=== PATIENT | male | born 1985 | race Caucasian/White ===

== ENCOUNTER 2016-10-31 17:15 | Emergency (ER) | payer OTHER ==
[~2016-10-31] VITALS: Ht 180.3 cm; Wt 79.5 kg
[~2016-10-31 17:15] MED LIST: ADDE15TA PO; ADDE30XR PO; ALBU6.7H INH; AMIT25 PO; AZEL0.05 INH; FLUV100C PO; GABA400C5 PO; LEVE750T8 PO; SERO200T PO; SERT50 PO; XANA1TAB2 PO
[2016-10-31 17:46] VITALS: BP 147/81; PULSE 97; RESP 18; TEMP 98.6; O2SAT 96
[2016-10-31] MEDS ORDERED: AMIT25TA9 PO (17:54)
[2016-10-31] MEDS ORDERED: KEPP750T PO (17:54)
[2016-10-31] MEDS ORDERED: ZOLO50TA PO (17:54)
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
[2016-10-31] MEDS ORDERED: SODIUM CHLOR 0.9% 1000 ML INJ 1,000 ML IV ONE (18:00)
[2016-10-31] MEDS ORDERED: MORPHINE SULFATE 4 MG/ML INJ IV PUSH ONE (18:15)
[2016-10-31 18:21] LABS: AUTOMATED NEUTROPHIL # 2.1 TH/MM3 (1.8-7.7); BASOPHIL % 1.1 % (0.0-2.0); EOSINOPHIL # 0.1 TH/MM3 (0-0.4); EOSINOPHIL % 1.9 % (0.0-4.0); HEMATOCRIT 33.6 % (39.0-51.0); HEMO FLAGS DIFF FINAL; LYMPH % 31.9 % (9.0-44.0); LYMPHOCYTE # 1.2 TH/MM3 (1.0-4.8); MEAN CELL VOLUME 81.9 FL (80.0-100.0); MEAN CORPUSCULAR HEMOGLOBIN 26.6 PG (27.0-34.0); MEAN CORPUSCULAR HGB CONC 32.4 % (32.0-36.0); MONO % 11.6 % (0.0-8.0); NEUT % 53.5 % (16.0-70.0); PLATELET COUNT 128 TH/MM3 (150-450); RED BLOOD COUNT 4.11 MIL/MM3 (4.50-5.90); RED CELL DISTRIBUTION WIDTH 17.7 % (11.6-17.2); WHITE BLOOD COUNT 3.9 TH/MM3 (4.0-11.0)
[2016-10-31 18:32] LABS: APTT (PATIENT) 27.3 SEC (24.3-30.1); PROTHROMBIN TIME - PATIENT 11.1 SEC (9.8-11.6)
[2016-10-31 18:51] LABS: ANION GAP 7 MEQ/L (5-15); AST (GOT) 72 U/L (15-37); BICARBONATE 26.9 MEQ/L (21.0-32.0); BLOOD UREA NITROGEN 16 MG/DL (7-18); CHLORIDE 107 MEQ/L (98-107); GLOMERULAR FILTRATION RATE 89 ML/MIN (>89); POTASSIUM 3.6 MEQ/L (3.5-5.1); SODIUM (NA) 141 MEQ/L (136-145)
[2016-10-31 18:55] LABS: ALKALINE PHOSPHATASE 85 U/L (45-117); ALT (GPT) 105 U/L (12-78); TOTAL BILIRUBIN ADULT 0.3 MG/DL (0.2-1.0)
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
[2016-10-31] MEDS ORDERED: IOHEXOL 350 MG/ML 10 ML VIAL (for RAD DIAG) IV ONE (19:19)
--- NOTE | 2016-10-31 19:19 | RADRPT ---
EXAM DATE/TIME: 10/31/2016 18:49 [facility] COMPARISON: CHEST SINGLE AP, December 22, 2015, 14:53. INDICATIONS : Chest pain, shortness of breath. MEDICAL HISTORY : Hypertension. Smoker. Asthma. SURGICAL HISTORY : Pacemaker. ENCOUNTER: Initial ACUITY: 1 day PAIN SCORE: 7/10 LOCATION: Bilateral chest FINDINGS: A single view of the chest demonstrates the lungs to be symmetrically aerated without evidence of mas s, infiltrate or effusion. The cardiomediastinal contours are unremarkable. Osseous structures are intact. A left subclavian AV sequential transvenous pacer remains in place. CONCLUSION: No acute disease. Scott Ramírez MD on October 31, 2016 at 19:17 Board Certified Radiologist. This report was verified electronically.
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
[2016-10-31 19:33] VITALS: RESP 20
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
[2016-10-31] MEDS ORDERED: ROBA750T PO (20:19)
[2016-10-31] MEDS ORDERED: IBUP-232 PO (20:19)
== END 2016-10-31 20:49 | disposition home or self-care (01) ==
LOC: NEPD 17:15
DX: S09.90XA Unspecified injury of head, initial encounter (principal); M54.2 Cervicalgia; M54.9 Dorsalgia, unspecified; V19.40XA Pedal cycle driver injured in collision with unspecified motor vehicles in traffic accident, initial encounter; Y93.55 Activity, bike riding; R07.9 Chest pain, unspecified; R10.9 Unspecified abdominal pain; M25.562 Pain in left knee; M25.561 Pain in right knee; M79.602 Pain in left arm; M79.601 Pain in right arm; J45.909 Unspecified asthma, uncomplicated; I10 Essential (primary) hypertension
CPT/HCPCS: 70450; 71010; 71260; 72125; 72128; 72131; 73060; 73564; 74177; 80053; 85025; 85610; 85730; 86850; 86900; 86901; 96361; 96374; 99284; J2270; J7030; Q9967

== ENCOUNTER 2016-11-06 09:25 | Emergency (ER) | payer OTHER ==
[~2016-11-06] VITALS: Ht 180.3 cm; Wt 75.0 kg
[~2016-11-06 09:25] MED LIST changes: +AMIT25TA9 PO; +IBUP-232 PO; +KEPP750T PO; +ROBA750T PO; +ZOLO50TA PO
[2016-11-06 09:26] VITALS: BP 146/78; PULSE 126; RESP 24; TEMP 98.6; O2SAT 100
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
[2016-11-06] MEDS ORDERED: ACETAMINOPHEN 500 MG CPLT PO ONE (10:00)
== END 2016-11-06 10:05 | disposition home or self-care (01) ==
LOC: NEPD 09:25
DX: R07.89 Other chest pain (principal); R51 Headache; Z76.5 Malingerer [conscious simulation]; J45.909 Unspecified asthma, uncomplicated; I10 Essential (primary) hypertension; V13.4XXD Pedal cycle driver injured in collision with car, pick-up truck or van in traffic accident, subsequent encounter; Z72.0 Tobacco use
CPT/HCPCS: 99283

== ENCOUNTER 2017-01-07 12:01 | Emergency (ER) | payer BC, OTHER ==
[~2017-01-07] VITALS: Ht 180.3 cm; Wt 75.0 kg
[~2017-01-07 12:01] MED LIST changes: -ADDE15TA PO; -ADDE30XR PO; -ALBU6.7H INH; -AMIT25 PO; -AZEL0.05 INH; -FLUV100C PO; -GABA400C5 PO; -IBUP-232 PO; -LEVE750T8 PO; -ROBA750T PO; -SERO200T PO; -SERT50 PO; -XANA1TAB2 PO
[2017-01-07 12:03] VITALS: BP 156/78; PULSE 104; RESP 24; TEMP 99; O2SAT 98
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
[2017-01-07] MEDS ORDERED: GABA600T PO (12:15)
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
--- NOTE | 2017-01-07 12:57 | RADRPT ---
EXAM DATE/TIME: 01/07/2017 12:25 [facility] COMPARISON: No previous studies available for comparison. INDICATIONS : Right ankle pain and swelling MEDICAL HISTORY : None. SURGICAL HISTORY : None. ENCOUNTER: Initial ACUITY: 1 day PAIN SCORE: 10/10 LOCATION: Right ankle FINDINGS: Three view exam was performed of the right ankle. The bony structures are in normal alignment. No e vidence of fracture, dislocation. Soft tissue swelling is present. The ankle mortise is intact. No r adiopaque foreign bodies are seen. Bony mineralization is normal. CONCLUSION: 1. Soft tissue swelling of the right ankle. No acute bony abnormality identified. Darian Day MD on January 07, 2017 at 12:51 Board Certified Radiologist. This report was verified electronically.
--- NOTE | 2017-01-07 12:58 | RADRPT ---
EXAM DATE/TIME: 01/07/2017 12:29 [facility] COMPARISON: No previous studies available for comparison. INDICATIONS : Right foot pain and swelling MEDICAL HISTORY : None. SURGICAL HISTORY : None. ENCOUNTER: Initial ACUITY: 1 day PAIN SCORE: 10/10 LOCATION: Right Foot FINDINGS: Three view examination of the right foot demonstrates no soft tissue swelling, dislocation, or fractu re. The tarsal bones appear intact. The interphalangeal and metatarsophalangeal joints are intact. The calcaneus is intact. Bony mineralization is normal. CONCLUSION: Normal examination for a patient of this age. Darian Day MD on January 07, 2017 at 12:55 Board Certified Radiologist. This report was verified electronically.
[2017-01-07] MEDS ORDERED: IBUP800T23 PO (13:13)
== END 2017-01-07 13:31 | disposition home or self-care (01) ==
LOC: NEPD 12:01
DX: S93.401A Sprain of unspecified ligament of right ankle, initial encounter (principal); S93.601A Unspecified sprain of right foot, initial encounter; M10.9 Gout, unspecified; I10 Essential (primary) hypertension; F90.9 Attention-deficit hyperactivity disorder, unspecified type; J45.909 Unspecified asthma, uncomplicated; M79.7 Fibromyalgia; B19.20 Unspecified viral hepatitis C without hepatic coma; W18.30XA Fall on same level, unspecified, initial encounter; Y93.51 Activity, roller skating (inline) and skateboarding
CPT/HCPCS: 73610; 73630; 99283; E0113; L1906

== ENCOUNTER 2017-07-03 11:09 | Emergency (ER) | payer SELFPAY ==
[~2017-07-03 11:09] MED LIST changes: +GABA600T PO; +IBUP1TAB7 PO
[2017-07-03 11:10] VITALS: BP 142/70; PULSE 70; RESP 15; TEMP 97.9; O2SAT 98
[2017-07-03] MEDS ORDERED: SODIUM CHLOR 0.9% 1000 ML INJ 1,000 ML IV ONE (12:02)
[2017-07-03] MEDS ORDERED: SODIUM CHLORIDE 0.9% FLUSH 10 ML FLUSH IVF PRN (12:15)
[2017-07-03] MEDS ORDERED: ACETAMINOPHEN 325 MG TAB PO ONE (12:15)
[2017-07-03] MEDS ORDERED: DIAZEPAM 5 MG TAB PO ONE (12:15)
[2017-07-03] MEDS ORDERED: GABAPENTIN 300 MG CAP PO ONE (12:15)
[2017-07-03] MEDS ORDERED: levETIRAcetam 500 MG TAB PO ONE (12:15)
[2017-07-03] MEDS ORDERED: levETIRAcetam 250 MG TAB PO ONE (12:15)
[2017-07-03 12:30] VITALS: O2SAT 98
--- NOTE | 2017-07-03 12:56 | RADRPT ---
EXAM DATE/TIME: 07/03/2017 12:33 [facility] COMPARISON: CHEST SINGLE AP, October 31, 2016, 18:49. INDICATIONS : Cough. MEDICAL HISTORY : Cardiovascular disease. Hypertension. Hepatitis C. SURGICAL HISTORY : Pacemaker. ENCOUNTER: Initial ACUITY: 1 day PAIN SCORE: 0/10 LOCATION: Bilateral chest FINDINGS: A single view of the chest demonstrates the lungs to be symmetrically aerated without evidence of mas s, infiltrate or effusion. The cardiomediastinal contours are unremarkable. Osseous structures are intact. Left subclavian dual lead pacemaker has its tips in the right atrium right ventricle. CONCLUSION: No acute cardiopulmonary disease. Kal Ferris MD on July 03, 2017 at 12:54 Board Certified Radiologist. This report was verified electronically.
[2017-07-03] MEDS ORDERED: KEPP750T PO (13:12)
[2017-07-03] MEDS ORDERED: GABA600T PO (13:12)
[2017-07-03 13:13] LABS: AUTOMATED NEUTROPHIL # 2.1 TH/MM3 (1.8-7.7); EOSINOPHIL # 0.1 TH/MM3 (0-0.4); EOSINOPHIL % 2.9 % (0.0-4.0); HEMATOCRIT 38.1 % (39.0-51.0); HEMO FLAGS DIFF FINAL; LYMPH % 35.2 % (9.0-44.0); LYMPHOCYTE # 1.5 TH/MM3 (1.0-4.8); MEAN CELL VOLUME 87.1 FL (80.0-100.0); MEAN CORPUSCULAR HEMOGLOBIN 29.7 PG (27.0-34.0); MONO % 10.7 % (0.0-8.0); NEUT % 50.2 % (16.0-70.0); PLATELET COUNT 165 TH/MM3 (150-450); RED BLOOD COUNT 4.37 MIL/MM3 (4.50-5.90); RED CELL DISTRIBUTION WIDTH 14.9 % (11.6-17.2); WHITE BLOOD COUNT 4.1 TH/MM3 (4.0-11.0)
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
[2017-07-03 13:30] LABS: ANION GAP 5 MEQ/L (5-15); AST (GOT) 65 U/L (15-37); BICARBONATE 26.9 MEQ/L (21.0-32.0); BLOOD UREA NITROGEN 16 MG/DL (7-18); CHLORIDE 108 MEQ/L (98-107); GLOMERULAR FILTRATION RATE 128 ML/MIN (>89); POTASSIUM 4.2 MEQ/L (3.5-5.1); SODIUM (NA) 140 MEQ/L (136-145)
[2017-07-03 13:33] LABS: ALKALINE PHOSPHATASE 89 U/L (45-117); ALT (GPT) 57 U/L (12-78); TOTAL BILIRUBIN ADULT 0.2 MG/DL (0.2-1.0)
[2017-07-03 13:45] LABS: ALCOHOL LESS THAN 3 MG/DL (0-5)
--- NOTE | 2017-07-03 13:51 | RADRPT ---
EXAM DATE/TIME: 07/03/2017 13:16 [facility] COMPARISON: CT BRAIN W/O CONTRAST, October 31, 2016, 19:01. INDICATIONS : Altered mental status, evaluate for mass. RADIATION DOSE: 56.35 CTDIvol (mGy) MEDICAL HISTORY : Cardiovascular disease. Hepatitis C. Asthma SURGICAL HISTORY : None. ENCOUNTER: Initial ACUITY: 1 day PAIN SCALE: 5/10 LOCATION: cranial TECHNIQUE: Multiple contiguous axial images were obtained of the head. Using automated exposure control and adj ustment of the mA and/or kV according to patient size, radiation dose was kept as low as reasonably a chievable to obtain optimal diagnostic quality images. DICOM format image data is available electro nically for review and comparison. FINDINGS: CEREBRUM: The ventricles are normal for age. No evidence of midline shift, mass lesion, hemorrhage or acute in farction. No extra-axial fluid collections are seen. POSTERIOR FOSSA: The cerebellum and brainstem are intact. The 4th ventricle is midline. The cerebellopontine angle i s unremarkable. EXTRACRANIAL: The visualized portion of the orbits is intact. SKULL: The calvaria is intact. No evidence of skull fracture. CONCLUSION: 1. No acute intracranial abnormality. No gross mass or mass effect. MRI examination may be performed if there is continued clinical concern. Jefferson Gifford MD on July 03, 2017 at 13:48 Board Certified Radiologist. This report was verified electronically.
[2017-07-03 14:07] VITALS: BP 130/60
[2017-07-03 14:15] VITALS: RESP 18
== END 2017-07-03 14:20 | disposition home or self-care (01) ==
LOC: NEPD 11:09
DX: G40.909 Epilepsy, unspecified, not intractable, without status epilepticus (principal); R51 Headache; R04.2 Hemoptysis; R20.0 Anesthesia of skin; R20.2 Paresthesia of skin; M62.81 Muscle weakness (generalized); M10.9 Gout, unspecified; M79.7 Fibromyalgia; I10 Essential (primary) hypertension
CPT/HCPCS: 70450; 71010; 80053; 80307; 85025; 96360; 99285; J7030

== ENCOUNTER 2017-07-10 12:35 | Emergency (ER) | payer SELFPAY ==
[2017-07-10 12:36] VITALS: BP 143/74; PULSE 85; RESP 16; TEMP 98.6; O2SAT 100
[2017-07-10 13:22] LABS: AUTOMATED NEUTROPHIL # 2.9 TH/MM3 (1.8-7.7); BASOPHIL % 0.5 % (0.0-2.0); EOSINOPHIL # 0.2 TH/MM3 (0-0.4); EOSINOPHIL % 3.8 % (0.0-4.0); HEMATOCRIT 37.5 % (39.0-51.0); HEMOGLOBIN 12.4 GM/DL (13.0-17.0); LYMPH % 33.9 % (9.0-44.0); LYMPHOCYTE # 1.9 TH/MM3 (1.0-4.8); MEAN CELL VOLUME 88.8 FL (80.0-100.0); MEAN CORPUSCULAR HEMOGLOBIN 29.3 PG (27.0-34.0); MEAN PLATELET VOLUME 7.6 FL (7.0-11.0); MONO % 9.9 % (0.0-8.0); MONOCYTE # 0.5 TH/MM3 (0-0.9); NEUT % 51.9 % (16.0-70.0); PLATELET COUNT 198 TH/MM3 (150-450); RED BLOOD COUNT 4.23 MIL/MM3 (4.50-5.90); RED CELL DISTRIBUTION WIDTH 15.5 % (11.6-17.2); WHITE BLOOD COUNT 5.5 TH/MM3 (4.0-11.0)
[2017-07-10 13:31] LABS: BILIRUBIN, URINE NEG (NEG); BLOOD, URINE NEG (NEG); GLUCOSE,URINE NEG (NEG); KETONE, URINE TRACE mg/dL (NEG); MUCUS URINE FEW /lpf (OCC); NITRITE,URINE NEG (NEG); PH, URINE 5.5 (5.0-8.5); URINE COLOR YELLOW (YELLW/STRAW); URINE LEUKOCYTE ESTERASE SMALL (NEG)
[2017-07-10 13:38] LABS: BICARBONATE 28.3 MEQ/L (21.0-32.0); CALCIUM 8.6 MG/DL (8.5-10.1); CREATININE 0.81 MG/DL (0.60-1.30)
[2017-07-10] MEDS ORDERED: VENL75XR PO (13:44)
[2017-07-10] MEDS ORDERED: SERO400T PO (13:44)
[2017-07-10] MEDS ORDERED: METR-1 PO (13:44)
[2017-07-10 13:49] VITALS: BP 131/68; PULSE 72; RESP 23; TEMP 97.9; O2SAT 100
[2017-07-10] MEDS ORDERED: BUSP30TA PO (13:57)
--- NOTE | 2017-07-10 14:19 | RADRPT ---
EXAM DATE/TIME: 07/10/2017 13:16 [facility] COMPARISON: CHEST PA & LAT, January 29, 2016, 17:22. INDICATIONS : Short of breath. MEDICAL HISTORY : Cardiovascular disease. Hepatitis C. Asthma SURGICAL HISTORY : Pacemaker. ENCOUNTER: Initial ACUITY: 1 day PAIN SCORE: 0/10 LOCATION: Bilateral chest FINDINGS: PA and lateral views of the chest demonstrate the lungs to be symmetrically aerated without evidence of mass, infiltrate or effusion. The cardiomediastinal contours are unremarkable. Osseous structure s are intact. Pacing device overlies left chest. CONCLUSION: No acute disease. Kings Alvares Jr., MD on July 10, 2017 at 14:16 Board Certified Radiologist. This report was verified electronically.
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
[2017-07-10] MEDS ORDERED: LORazepam 2 MG/ML VIAL IV PUSH ONE (14:45)
[2017-07-10] MEDS ORDERED: SODIUM CHLOR 0.9% 1000 ML INJ 1,000 ML IV ONE (14:45)
--- NOTE | 2017-07-10 20:58 | EKG ---
Date Performed: 07/10/2017 Time Performed: 13:27:14 PTAGE: 31 years EKG: ELECTRONIC ATRIAL PACEMAKER ABNORMAL RHYTHM ECG Compared to prior electrocardiogram, Atrial pacemaker is present PREVIOUS TRACING : 12/22/2015 14.16 DOCTOR: Kvng Baldwin Interpretating Date/Time 07/10/2017 20:56:40
== END 2017-07-10 17:59 | disposition home or self-care (01) ==
LOC: NEPC 12:35
DX: F41.9 Anxiety disorder, unspecified (principal)
CPT/HCPCS: 71020; 80048; 81001; 82550; 82552; 85025; 93005; 96361; 96374; 99285; J2060; J7030

== ENCOUNTER 2017-07-12 00:51 | Emergency (ER) | payer SELFPAY ==
[~2017-07-12] VITALS: Ht 180.3 cm; Wt 83.0 kg
[~2017-07-12 00:51] MED LIST changes: +BUSP30TA PO; -IBUP1TAB7 PO; +METR-1 PO; +SERO400T PO; +VENL75XR PO; -ZOLO50TA PO
[2017-07-12 00:57] VITALS: BP 157/93; PULSE 100; RESP 26; TEMP 98.4; O2SAT 100
[2017-07-12] MEDS ORDERED: LORazepam 2 MG/ML VIAL IV PUSH ONE ×2 (01:00→02:15)
[2017-07-12] MEDS ORDERED: SODIUM CHLOR 0.9% 1000 ML INJ 1,000 ML IV ONE ×3 (01:00→03:15)
[2017-07-12] MEDS ORDERED: TYLE325T PO (01:05)
[2017-07-12] MEDS ORDERED: GLUC500T4 PO (01:05)
[2017-07-12] MEDS ORDERED: IBUP-232 PO (01:05)
[2017-07-12 01:20] LABS: AUTOMATED NEUTROPHIL # 4.4 TH/MM3 (1.8-7.7); BASOPHIL % 0.3 % (0.0-2.0); EOSINOPHIL # 0.1 TH/MM3 (0-0.4); EOSINOPHIL % 1.1 % (0.0-4.0); HEMATOCRIT 38.4 % (39.0-51.0); HEMOGLOBIN 13.1 GM/DL (13.0-17.0); LYMPH % 29.4 % (9.0-44.0); LYMPHOCYTE # 2.1 TH/MM3 (1.0-4.8); MEAN CELL VOLUME 86.9 FL (80.0-100.0); MEAN CORPUSCULAR HEMOGLOBIN 29.7 PG (27.0-34.0); MEAN CORPUSCULAR HGB CONC 34.1 % (32.0-36.0); MEAN PLATELET VOLUME 7.7 FL (7.0-11.0); MONO % 7.7 % (0.0-8.0); MONOCYTE # 0.6 TH/MM3 (0-0.9); NEUT % 61.5 % (16.0-70.0); PLATELET COUNT 289 TH/MM3 (150-450); RED BLOOD COUNT 4.42 MIL/MM3 (4.50-5.90); RED CELL DISTRIBUTION WIDTH 15.8 % (11.6-17.2); WHITE BLOOD COUNT 7.2 TH/MM3 (4.0-11.0)
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
[2017-07-12 01:56] LABS: ALBUMIN 4.1 GM/DL (3.4-5.0); ALT (GPT) 48 U/L (12-78); AST (GOT) 47 U/L (15-37); BICARBONATE 25.8 MEQ/L (21.0-32.0); BLOOD UREA NITROGEN 17 MG/DL (7-18); CALCIUM 9.5 MG/DL (8.5-10.1); CHLORIDE 106 MEQ/L (98-107); CREATININE 0.94 MG/DL (0.60-1.30); GLOMERULAR FILTRATION RATE 94 ML/MIN (>89); GLUCOSE,RANDOM 75 MG/DL (74-106); SODIUM (NA) 139 MEQ/L (136-145)
[2017-07-12 02:05] VITALS: BP 135/74; PULSE 77; RESP 16; O2SAT 100
[2017-07-12 02:06] LABS: ACETAMINOPHEN LESS THAN 2.0 MCG/ML (10.0-30.0); ALKALINE PHOSPHATASE 77 U/L (45-117); TOTAL BILIRUBIN ADULT 0.4 MG/DL (0.2-1.0)
[2017-07-12 04:07] LABS: BILIRUBIN, URINE NEG (NEG); BLOOD, URINE NEG (NEG); GLUCOSE,URINE NEG (NEG); HYALINE CAST, URINE 6 /lpf (RARE); KETONE, URINE TRACE mg/dL (NEG); MUCUS URINE FEW /lpf (OCC); NITRITE,URINE NEG (NEG); SPERM, URINE FEW; URINE COLOR YELLOW (YELLW/STRAW); URINE LEUKOCYTE ESTERASE NEG (NEG)
[2017-07-12 06:04] VITALS: BP 159/92; PULSE 82; RESP 17; TEMP 98.9; O2SAT 100
[2017-07-12] MEDS ORDERED: IBUPROFEN 800 MG TAB PO ONE (09:45)
[2017-07-12 10:32] VITALS: BP 138/63; PULSE 79; RESP 18; O2SAT 99
[2017-07-12] MEDS ORDERED: levETIRAcetam 500 MG TAB PO ONE (13:15)
[2017-07-12] MEDS ORDERED: GABAPENTIN 300 MG CAP PO ONE (13:15)
--- NOTE | 2017-07-12 13:56 | EKG ---
Date Performed: 07/12/2017 Time Performed: 01:19:18 PTAGE: 31 years EKG: Sinus rhythm NORMAL ECG Compared to PREVIOUS TRACING atrial pacing is no longer noted and sinus rhythm is now present PREVIO US TRACIN07/10/2017 13.27 DOCTOR: Michael Eugene Interpretating Date/Time 07/12/2017 13:54:40
[2017-07-12 14:05] VITALS: BP 143/68; PULSE 89; RESP 20
[2017-07-12] MEDS ORDERED: TRAZ100T10 PO (15:59)
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
--- NOTE | 2017-07-12 17:05 | PD ---
Physical Exam Date Seen by Provider: Jul 12, 2017 Time Seen by Provider: 17:03 Narrative 31-year-old male previously medically cleared for psychiatric evaluation after stating suicidal ideation. Patient was seen by Dr. Beck, the psychiatrist and psychiatrically cleared for discharge. Patient remains medically stable for discharge at this time. Follow-up plan as per Dr. Beck's note. Data Data Last Documented VS Vital Signs Date Time Temp Pulse Resp B/P (MAP) Pulse Ox O2 Delivery O2 Flow Rate FiO2 07/12/17 14:05 89 20 143/68 (93) Room Air 07/12/17 10:32 99 07/12/17 06:04 98.9 Orders Orders Complete Blood Count With Diff (07/12/17 00:57) Comprehensive Metabolic Panel (07/12/17 00:57) Thyroid Stimulating Hormone (07/12/17 00:57) Urinalysis - C+S If Indicated (07/12/17 00:57) Electrocardiogram (07/12/17 00:57) Oximetry (07/12/17 00:57) Iv Access Insert/Monitor (07/12/17 00:57) Ecg Monitoring (07/12/17 00:57) Psych Screen (07/12/17 00:57) Drug Screen, Random Urine (07/12/17 00:57) Alcohol (Ethanol) (07/12/17 00:57) Salicylates (Aspirin) (07/12/17 00:57) Tylenol (Acetaminophen) (07/12/17 00:57) Sodium Chlor 0.9% 1000 Ml Inj (Ns 1000 M (07/12/17 01:00) Lorazepam Inj (Ativan Inj) (07/12/17 01:00) Sodium Chlor 0.9% 1000 Ml Inj (Ns 1000 M (07/12/17 02:15) Lorazepam Inj (Ativan Inj) (07/12/17 02:15) Sodium Chlor 0.9% 1000 Ml Inj (Ns 1000 M (07/12/17 03:15) Diet Regular Basic (07/12/17 Breakfast) Diet Regular Basic (07/12/17 Lunch) Ibuprofen (Motrin) (07/12/17 09:45) Levetiracetam (Keppra) (07/12/17 13:15) Gabapentin (Neurontin) (07/12/17 13:15) Diet Regular Basic (07/12/17 Dinner) Labs Laboratory Tests Test 07/12/17 01:10 07/12/17 03:50 White Blood Count 7.2 TH/MM3 Red Blood Count 4.42 MIL/MM3 Hemoglobin 13.1 GM/DL Hematocrit 38.4 % Mean Corpuscular Volume 86.9 FL Mean Corpuscular Hemoglobin 29.7 PG Mean Corpuscular Hemoglobin Concent 34.1 % Red Cell Distribution Width 15.8 % Platelet Count 289 TH/MM3 Mean Platelet Volume 7.7 FL Neutrophils (%) (Auto) 61.5 % Lymphocytes (%) (Auto) 29.4 % Monocytes (%) (Auto) 7.7 % Eosinophils (%) (Auto) 1.1 % Basophils (%) (Auto) 0.3 % Neutrophils # (Auto) 4.4 TH/MM3 Lymphocytes # (Auto) 2.1 TH/MM3 Monocytes # (Auto) 0.6 TH/MM3 Eosinophils # (Auto) 0.1 TH/MM3 Basophils # (Auto) 0.0 TH/MM3 CBC Comment DIFF FINAL Differential Comment Blood Urea Nitrogen 17 MG/DL Creatinine 0.94 MG/DL Random Glucose 75 MG/DL Total Protein 8.0 GM/DL Albumin 4.1 GM/DL Calcium Level 9.5 MG/DL Alkaline Phosphatase 77 U/L Aspartate Amino Transf (AST/SGOT) 47 U/L Alanine Aminotransferase (ALT/SGPT) 48 U/L Total Bilirubin 0.4 MG/DL Sodium Level 139 MEQ/L Potassium Level 4.3 MEQ/L Chloride Level 106 MEQ/L Carbon Dioxide Level 25.8 MEQ/L Anion Gap 7 MEQ/L Estimat Glomerular Filtration Rate 94 ML/MIN Thyroid Stimulating Hormone 3rd Gen 2.870 uIU/ML Salicylates Level LESS THAN 1.7 MG/DL Acetaminophen Level LESS THAN 2.0 MCG/ML Ethyl Alcohol Level LESS THAN 3 MG/DL Urine Color YELLOW Urine Turbidity CLEAR Urine pH 7.0 Urine Specific [place] 1.026 Urine Protein 30 mg/dL Urine Glucose (UA) NEG mg/dL Urine Ketones TRACE mg/dL Urine Occult Blood NEG Urine Nitrite NEG Urine Bilirubin NEG Urine Urobilinogen LESS THAN 2.0 MG/DL Urine Leukocyte Esterase NEG Urine RBC 2 /hpf Urine WBC 4 /hpf Urine Hyaline Casts 6 /lpf Urine Granular Casts 3 /lpf Urine Mucus FEW /lpf Urine Sperm FEW Microscopic Urinalysis Comment CULT NOT INDICATED Urine Opiates Screen NEG Urine Barbiturates Screen NEG Urine Amphetamines Screen POS Urine Benzodiazepines Screen NEG Urine Cocaine Screen NEG Urine Cannabinoids Screen NEG MDM Medical Record Reviewed: Yes Supervised Visit with [facility]: Yes Narrative Course 31-year-old male previously medically cleared for psychiatric evaluation after stating suicidal ideation. Patient was seen by Dr. Beck, the psychiatrist and psychiatrically cleared for discharge. Patient remains medically stable for discharge at this time. Follow-up plan as per Dr. Beck's note. Diagnosis Primary Impression: Adjustment disorder with mixed disturbance of emotions and conduct Patient Instructions: General Instructions, Mood Disorders (ED) Departure Forms: Tests/Procedures Scripts Trazodone (Trazodone) 100 Mg Tablet 100 MG PO HS for Control Depression, #30 TAB 0 Refills Prov: Fahad Beck MD 07/12/17 Disposition: 01 DISCHARGE HOME Condition: Stable Jorge Luis Moreira Jul 12, 2017 17:04
== END 2017-07-12 18:30 | disposition home or self-care (01) ==
LOC: NEPC 00:51 → NEPJ 18:30
DX: F43.25 Adjustment disorder with mixed disturbance of emotions and conduct (principal); R45.851 Suicidal ideations; F90.9 Attention-deficit hyperactivity disorder, unspecified type; J45.909 Unspecified asthma, uncomplicated; F41.9 Anxiety disorder, unspecified; M79.7 Fibromyalgia; I10 Essential (primary) hypertension; M10.9 Gout, unspecified; R56.9 Unspecified convulsions
CPT/HCPCS: 80053; 80307; 81001; 84443; 85025; 93005; 96361; 96374; 96376; 99285; J2060; J7030

== ENCOUNTER 2017-08-04 18:34 | Emergency (ER) | payer OTHER ==
[~2017-08-04] VITALS: Ht 180.3 cm; Wt 80.0 kg
[~2017-08-04 18:34] MED LIST changes: -AMIT25TA9 PO; +GLUC500T4 PO; +IBUP-232 PO; +TRAZ100T10 PO; +TYLE325T PO
[2017-08-04] MEDS ORDERED: LORA-474 PO (18:54)
[2017-08-04] MEDS ORDERED: ALBU6.7H INH (18:54)
[2017-08-04] MEDS ORDERED: OXYC-395 PO (18:54)
[2017-08-04] MEDS ORDERED: METO25TA3 PO (18:54)
[2017-08-04 18:56] VITALS: BP 147/98; PULSE 87; RESP 20; O2SAT 100
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
[2017-08-04 19:56] LABS: ALBUMIN 4.3 GM/DL (3.4-5.0); AST (GOT) 64 U/L (15-37); BICARBONATE 30.3 MEQ/L (21.0-32.0); BLOOD UREA NITROGEN 24 MG/DL (7-18); CALCIUM 9.2 MG/DL (8.5-10.1); CHLORIDE 100 MEQ/L (98-107); CREATININE 1.12 MG/DL (0.60-1.30); GLOMERULAR FILTRATION RATE 77 ML/MIN (>89); GLUCOSE,RANDOM 85 MG/DL (74-106); SODIUM (NA) 134 MEQ/L (136-145)
[2017-08-04 19:57] LABS: ALT (GPT) 58 U/L (12-78)
[2017-08-04 20:07] LABS: ALKALINE PHOSPHATASE 108 U/L (45-117); TOTAL BILIRUBIN ADULT 0.3 MG/DL (0.2-1.0); TOTAL PROTEIN 8.6 GM/DL (6.4-8.2)
[2017-08-04 20:10] LABS: AUTOMATED NEUTROPHIL # 1.6 TH/MM3 (1.8-7.7); BASOPHIL # 0.1 TH/MM3 (0-0.2); BASOPHIL % 1.3 % (0.0-2.0); EOSINOPHIL # 0.2 TH/MM3 (0-0.4); EOSINOPHIL % 4.1 % (0.0-4.0); HEMATOCRIT 37.7 % (39.0-51.0); HEMOGLOBIN 12.6 GM/DL (13.0-17.0); LYMPH % 45.8 % (9.0-44.0); MEAN CELL VOLUME 86.3 FL (80.0-100.0); MEAN CORPUSCULAR HEMOGLOBIN 28.8 PG (27.0-34.0); MEAN CORPUSCULAR HGB CONC 33.4 % (32.0-36.0); MEAN PLATELET VOLUME 7.8 FL (7.0-11.0); MONO % 12.9 % (0.0-8.0); MONOCYTE # 0.6 TH/MM3 (0-0.9); NEUT % 35.9 % (16.0-70.0); PLATELET COUNT 300 TH/MM3 (150-450); RED BLOOD COUNT 4.37 MIL/MM3 (4.50-5.90); RED CELL DISTRIBUTION WIDTH 15.9 % (11.6-17.2); WHITE BLOOD COUNT 4.3 TH/MM3 (4.0-11.0)
[2017-08-04] MEDS ORDERED: LORazepam 1 MG TAB PO ONE (21:00)
[2017-08-04] MEDS ORDERED: SODIUM CHLOR 0.9% 1000 ML INJ 1,000 ML IV ONE (21:45)
[2017-08-05 06:49] VITALS: BP 131/65; PULSE 81; RESP 18; TEMP 98.5; O2SAT 100
[2017-08-05 07:15] LABS: BILIRUBIN, URINE NEG (NEG); BLOOD, URINE NEG (NEG); GLUCOSE,URINE NEG (NEG); KETONE, URINE NEG (NEG); NITRITE,URINE NEG (NEG); PH, URINE 5.5 (5.0-8.5); URINE COLOR LIGHT-YELLOW (YELLW/STRAW); URINE LEUKOCYTE ESTERASE NEG (NEG)
[2017-08-05 10:13] VITALS: BP 133/65; PULSE 70; RESP 17; O2SAT 96
[2017-08-05] MEDS ORDERED: levETIRAcetam 500 MG TAB PO ONE (14:15)
[2017-08-05 21:00] VITALS: BP 114/56; PULSE 70; RESP 16; TEMP 98.2; O2SAT 100
[2017-08-05 22:28] VITALS: BP 122/64; PULSE 72; RESP 16; TEMP 99; O2SAT 100
[2017-08-06 02:38] VITALS: BP 112/56; PULSE 78; RESP 16; TEMP 98.2; O2SAT 99
[2017-08-06 07:12] VITALS: BP 118/59; PULSE 65; RESP 17; TEMP 98.6; O2SAT 100
[2017-08-06] MEDS ORDERED: NICOTINE 14 MG/24 HR PATCH T-DERMAL ONE (09:00)
[2017-08-06] MEDS ORDERED: GABAPENTIN 300 MG CAP PO STA (09:13)
[2017-08-06] MEDS ORDERED: levETIRAcetam 250 MG TAB PO ONE (09:15)
[2017-08-06] MEDS ORDERED: busPIRone HCL 10 MG TAB PO ONE (09:15)
[2017-08-06] MEDS ORDERED: VENLAFAXINE HCL XR 75 MG CAP PO ONE (09:15)
[2017-08-06] MEDS ORDERED: METOPROLOL TARTRATE 25 MG TAB PO ONE (09:15)
[2017-08-06] MEDS ORDERED: IBUPROFEN 600 MG TAB PO ONE ×2 (10:30→20:00)
[2017-08-06 14:16] VITALS: BP 126/59; PULSE 65; RESP 18; TEMP 98.6; O2SAT 99
[2017-08-06] MEDS ORDERED: levETIRAcetam 500 MG TAB PO ONE (20:00)
[2017-08-06 22:00] VITALS: BP 111/61; PULSE 73; RESP 18; TEMP 98.5; O2SAT 96
[2017-08-07 02:05] VITALS: BP 124/63; PULSE 71; RESP 17; TEMP 99.1; O2SAT 98
[2017-08-07] MEDS ORDERED: IBUPROFEN 600 MG TAB PO ONE (06:15)
[2017-08-07 06:34] VITALS: BP 129/59; PULSE 54; RESP 17; TEMP 97.8; O2SAT 99
[2017-08-07] MEDS ORDERED: busPIRone HCL 10 MG TAB PO ONE (09:00)
[2017-08-07] MEDS ORDERED: VENLAFAXINE HCL XR 75 MG CAP PO ONE (09:00)
[2017-08-07] MEDS ORDERED: levETIRAcetam 250 MG TAB PO ONE (09:00)
[2017-08-07] MEDS ORDERED: METOPROLOL TARTRATE 25 MG TAB PO ONE (09:00)
[2017-08-07] MEDS ORDERED: GABAPENTIN 300 MG CAP PO ONE (09:00)
[2017-08-07 10:13] VITALS: BP 113/59; PULSE 78; RESP 12; TEMP 98.1; O2SAT 95
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
--- NOTE | 2017-08-07 11:17 | PD ---
Data Data Last Documented VS Vital Signs Date Time Temp Pulse Resp B/P (MAP) Pulse Ox O2 Delivery O2 Flow Rate FiO2 08/07/17 10:13 98.1 78 12 113/59 (77) 95 08/07/17 06:34 Room Air Orders Orders Complete Blood Count With Diff (08/04/17 18:50) Comprehensive Metabolic Panel (08/04/17 18:50) Thyroid Stimulating Hormone (08/04/17 18:50) Urinalysis - C+S If Indicated (08/04/17 18:50) Iv Access Insert/Monitor (08/04/17 18:50) Psych Screen (08/04/17 18:50) Drug Screen, Random Urine (08/04/17 18:50) Alcohol (Ethanol) (08/04/17 18:50) Lorazepam (Ativan) (08/04/17 21:00) Sodium Chlor 0.9% 1000 Ml Inj (Ns 1000 M (08/04/17 21:45) Diet Regular Basic (08/05/17 Lunch) Levetiracetam (Keppra) (08/05/17 14:15) Diet Regular Basic (08/06/17 Breakfast) Nicotine 14 Mg Patch.24 Hr (Habitrol 14 (08/06/17 09:00) Levetiracetam (Keppra) (08/06/17 09:15) Gabapentin (Neurontin) (08/06/17 09:13) Metoprolol Tartrate (Lopressor) (08/06/17 09:15) Venlafaxine Xr (Effexor Xr) (08/06/17 09:15) Buspirone (Buspar) (08/06/17 09:15) Ibuprofen (Motrin) (08/06/17 10:30) Diet Regular Basic (08/06/17 Lunch) Diet Regular Basic (08/06/17 Dinner) Levetiracetam (Keppra) (08/06/17 20:00) Ibuprofen (Motrin) (08/06/17 20:00) Ibuprofen (Motrin) (08/07/17 06:15) Diet Regular Basic (08/07/17 Breakfast) Buspirone (Buspar) (08/07/17 09:00) Gabapentin (Neurontin) (08/07/17 09:00) Levetiracetam (Keppra) (08/07/17 09:00) Metoprolol Tartrate (Lopressor) (08/07/17 09:00) Venlafaxine Xr (Effexor Xr) (08/07/17 09:00) Ed Discharge Order (08/07/17 11:15) Labs Laboratory Tests Test 08/04/17 19:20 08/05/17 07:05 White Blood Count 4.3 TH/MM3 Red Blood Count 4.37 MIL/MM3 Hemoglobin 12.6 GM/DL Hematocrit 37.7 % Mean Corpuscular Volume 86.3 FL Mean Corpuscular Hemoglobin 28.8 PG Mean Corpuscular Hemoglobin Concent 33.4 % Red Cell Distribution Width 15.9 % Platelet Count 300 TH/MM3 Mean Platelet Volume 7.8 FL Neutrophils (%) (Auto) 35.9 % Lymphocytes (%) (Auto) 45.8 % Monocytes (%) (Auto) 12.9 % Eosinophils (%) (Auto) 4.1 % Basophils (%) (Auto) 1.3 % Neutrophils # (Auto) 1.6 TH/MM3 Lymphocytes # (Auto) 2.0 TH/MM3 Monocytes # (Auto) 0.6 TH/MM3 Eosinophils # (Auto) 0.2 TH/MM3 Basophils # (Auto) 0.1 TH/MM3 CBC Comment DIFF FINAL Differential Comment Blood Urea Nitrogen 24 MG/DL Creatinine 1.12 MG/DL Random Glucose 85 MG/DL Total Protein 8.6 GM/DL Albumin 4.3 GM/DL Calcium Level 9.2 MG/DL Alkaline Phosphatase 108 U/L Aspartate Amino Transf (AST/SGOT) 64 U/L Alanine Aminotransferase (ALT/SGPT) 58 U/L Total Bilirubin 0.3 MG/DL Sodium Level 134 MEQ/L Potassium Level 4.3 MEQ/L Chloride Level 100 MEQ/L Carbon Dioxide Level 30.3 MEQ/L Anion Gap 4 MEQ/L Estimat Glomerular Filtration Rate 77 ML/MIN Thyroid Stimulating Hormone 3rd Gen 5.370 uIU/ML Ethyl Alcohol Level LESS THAN 3 MG/DL Urine Color LIGHT-YELLOW Urine Turbidity CLEAR Urine pH 5.5 Urine Specific [place] 1.006 Urine Protein NEG mg/dL Urine Glucose (UA) NEG mg/dL Urine Ketones NEG mg/dL Urine Occult Blood NEG Urine Nitrite NEG Urine Bilirubin NEG Urine Urobilinogen LESS THAN 2.0 MG/DL Urine Leukocyte Esterase NEG Urine WBC 2 /hpf Microscopic Urinalysis Comment CULT NOT INDICATED Urine Opiates Screen NEG Urine Barbiturates Screen NEG Urine Amphetamines Screen POS Urine Benzodiazepines Screen POS Urine Cocaine Screen NEG Urine Cannabinoids Screen NEG MDM Supervised Visit with [facility]: Yes Narrative Course 31-year-old man, medically cleared, seen by psychiatry, recommend outpatient follow-up with act. Diagnosis Primary Impression: Amphetamine abuse Additional Instruction: Follow-up with [facility] as discussed. Med/Other Pt SpecificInfo: No Change to Meds Disposition: 01 DISCHARGE HOME Condition: Stable George Parikh MD Aug 07, 2017 11:17
== END 2017-08-07 12:40 | disposition home or self-care (01) ==
LOC: NEPE 18:34 → NEPJ 08-07 12:40
DX: F33.1 Major depressive disorder, recurrent, moderate (principal); F15.10 Other stimulant abuse, uncomplicated; R23.8 Other skin changes; G89.29 Other chronic pain; I10 Essential (primary) hypertension; F41.8 Other specified anxiety disorders; J45.909 Unspecified asthma, uncomplicated; G40.909 Epilepsy, unspecified, not intractable, without status epilepticus; Z72.0 Tobacco use; Z95.0 Presence of cardiac pacemaker; Z86.59 Personal history of other mental and behavioral disorders; Z86.79 Personal history of other diseases of the circulatory system; Z87.39 Personal history of other diseases of the musculoskeletal system and connective tissue; Z86.39 Personal history of other endocrine, nutritional and metabolic disease
CPT/HCPCS: 80053; 80307; 81001; 84443; 85025; 99284; J7030

== ENCOUNTER 2017-10-29 18:00 | Emergency (ER) | payer OTHER ==
[~2017-10-29] VITALS: Ht 175.3 cm; Wt 82.0 kg
[~2017-10-29 18:00] MED LIST changes: +ALBU6.7H INH; -GLUC500T4 PO; -IBUP-232 PO; +LORA-474 PO; +METO25TA3 PO; -METR-1 PO; +OXYC-395 PO; -TRAZ100T10 PO; -TYLE325T PO
[2017-10-29 18:13] VITALS: BP 129/60; PULSE 84; RESP 18; TEMP 98.1; O2SAT 100
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
[2017-10-29 19:21] LABS: AUTOMATED NEUTROPHIL # 1.6 TH/MM3 (1.8-7.7); BASOPHIL % 0.9 % (0.0-2.0); EOSINOPHIL # 0.1 TH/MM3 (0-0.4); EOSINOPHIL % 3.8 % (0.0-4.0); HEMATOCRIT 37.6 % (39.0-51.0); HEMOGLOBIN 12.5 GM/DL (13.0-17.0); LYMPH % 40.9 % (9.0-44.0); LYMPHOCYTE # 1.5 TH/MM3 (1.0-4.8); MEAN CELL VOLUME 84.1 FL (80.0-100.0); MEAN CORPUSCULAR HEMOGLOBIN 27.9 PG (27.0-34.0); MEAN CORPUSCULAR HGB CONC 33.2 % (32.0-36.0); MEAN PLATELET VOLUME 7.8 FL (7.0-11.0); MONO % 10.1 % (0.0-8.0); MONOCYTE # 0.4 TH/MM3 (0-0.9); NEUT % 44.3 % (16.0-70.0); PLATELET COUNT 215 TH/MM3 (150-450); RED BLOOD COUNT 4.46 MIL/MM3 (4.50-5.90); RED CELL DISTRIBUTION WIDTH 15.5 % (11.6-17.2); WHITE BLOOD COUNT 3.6 TH/MM3 (4.0-11.0)
[2017-10-29] MEDS ORDERED: AMIT100T2 PO (21:40)
[2017-10-29] MEDS ORDERED: ZANT300T PO (21:40)
[2017-10-29] MEDS ORDERED: IRON1TAB8 PO (21:40)
[2017-10-29] MEDS ORDERED: SYNT25TA PO (21:40)
[2017-10-29] MEDS ORDERED: CHOL10008 (21:40)
[2017-10-29] MEDS ORDERED: LISI10TA3 PO (21:40)
[2017-10-30 01:04] VITALS: BP 120/58; PULSE 69; RESP 16; TEMP 97.8; O2SAT 99
[2017-10-30 06:20] VITALS: BP 130/68; PULSE 70; RESP 18; TEMP 96.7; O2SAT 100
[2017-10-30 08:26] LABS: ALBUMIN 3.7 GM/DL (3.4-5.0); AST (GOT) 40 U/L (15-37); BICARBONATE 25.6 MEQ/L (21.0-32.0); BLOOD UREA NITROGEN 16 MG/DL (7-18); CALCIUM 8.8 MG/DL (8.5-10.1); CHLORIDE 106 MEQ/L (98-107); GLOMERULAR FILTRATION RATE 87 ML/MIN (>89); GLUCOSE,RANDOM 73 MG/DL (74-106); MAGNESIUM 2.1 MG/DL (1.5-2.5); SODIUM (NA) 139 MEQ/L (136-145)
[2017-10-30 08:27] LABS: ALT (GPT) 159 U/L (12-78)
[2017-10-30 08:35] LABS: ALKALINE PHOSPHATASE 105 U/L (45-117); TOTAL BILIRUBIN ADULT 0.2 MG/DL (0.2-1.0); TOTAL PROTEIN 7.8 GM/DL (6.4-8.2)
[2017-10-30 09:00] LABS: ACETAMINOPHEN LESS THAN 2.0 MCG/ML (10.0-30.0)
--- NOTE | 2017-10-30 10:35 | PD ---
Physical Exam Date Seen by Provider: Oct 30, 2017 Time Seen by Provider: 10:31 Narrative 32-year-old male previously brought in as an EXPARTE, was medically cleared for psychiatric evaluation. Patient has been seen and evaluated by psychiatric staff and deemed to be psychiatrically stable for discharge at this time. Patient remains medically stable for discharge. Follow-up will be based on psychiatric note. Data Data Last Documented VS Vital Signs Date Time Temp Pulse Resp B/P (MAP) Pulse Ox O2 Delivery O2 Flow Rate FiO2 10/30/17 06:20 96.7 70 18 130/68 (88) 100 Room Air Orders Orders Complete Blood Count With Diff (10/29/17 18:23) Comprehensive Metabolic Panel (10/29/17 18:23) Magnesium (Mg) (10/29/17 18:23) Thyroid Stimulating Hormone (10/29/17 18:23) Psych Screen (10/29/17 18:23) Drug Screen, Random Urine (10/29/17 18:23) Alcohol (Ethanol) (10/29/17 18:23) Salicylates (Aspirin) (10/29/17 18:23) Tylenol (Acetaminophen) (10/29/17 18:23) Diet Regular Basic (10/30/17 Breakfast) Labs Laboratory Tests Test 10/29/17 19:00 10/30/17 01:52 White Blood Count 3.6 TH/MM3 Red Blood Count 4.46 MIL/MM3 Hemoglobin 12.5 GM/DL Hematocrit 37.6 % Mean Corpuscular Volume 84.1 FL Mean Corpuscular Hemoglobin 27.9 PG Mean Corpuscular Hemoglobin Concent 33.2 % Red Cell Distribution Width 15.5 % Platelet Count 215 TH/MM3 Mean Platelet Volume 7.8 FL Neutrophils (%) (Auto) 44.3 % Lymphocytes (%) (Auto) 40.9 % Monocytes (%) (Auto) 10.1 % Eosinophils (%) (Auto) 3.8 % Basophils (%) (Auto) 0.9 % Neutrophils # (Auto) 1.6 TH/MM3 Lymphocytes # (Auto) 1.5 TH/MM3 Monocytes # (Auto) 0.4 TH/MM3 Eosinophils # (Auto) 0.1 TH/MM3 Basophils # (Auto) 0.0 TH/MM3 CBC Comment DIFF FINAL Differential Comment Blood Urea Nitrogen 16 MG/DL Creatinine 1.00 MG/DL Random Glucose 73 MG/DL Total Protein 7.8 GM/DL Albumin 3.7 GM/DL Calcium Level 8.8 MG/DL Magnesium Level 2.1 MG/DL Alkaline Phosphatase 105 U/L Aspartate Amino Transf (AST/SGOT) 40 U/L Alanine Aminotransferase (ALT/SGPT) 159 U/L Total Bilirubin 0.2 MG/DL Sodium Level 139 MEQ/L Potassium Level 4.3 MEQ/L Chloride Level 106 MEQ/L Carbon Dioxide Level 25.6 MEQ/L Anion Gap 7 MEQ/L Estimat Glomerular Filtration Rate 87 ML/MIN Thyroid Stimulating Hormone 3rd Gen 0.415 uIU/ML Salicylates Level LESS THAN 1.7 MG/DL Acetaminophen Level LESS THAN 2.0 MCG/ML Ethyl Alcohol Level LESS THAN 3 MG/DL Urine Opiates Screen NEG Urine Barbiturates Screen NEG Urine Amphetamines Screen NEG Urine Benzodiazepines Screen NEG Urine Cocaine Screen NEG Urine Cannabinoids Screen NEG MDM Medical Record Reviewed: Yes Supervised Visit with EASTON: Yes Narrative Course 32-year-old male previously brought in as an EXPARTE, was medically cleared for psychiatric evaluation. Patient has been seen and evaluated by psychiatric staff and deemed to be psychiatrically stable for discharge at this time. Patient remains medically stable for discharge. Follow-up will be based on psychiatric note. Diagnosis Primary Impression: Polysubstance abuse Patient Instructions: General Instructions, Polysubstance Abuse (ED) Departure Forms: Tests/Procedures Additional Instruction: Follow up with primary care doctor/clinic. Follow up with Wade Rashid. Return to ED for any worsening. Disposition: 01 DISCHARGE HOME Condition: Stable Jorge Luis Moreira Oct 30, 2017 10:35
--- NOTE | 2017-10-30 13:07 | PD.PSY.CON ---
Provisional Diagnosis Admission Date [place] I. OCD, PTSD, polysubstance dependence [place] II. Unspecified personality disorder [place] III. Seizures, osteoarthritis, lower back pain History of Present Illness Service Psychiatry Consult Requested By Psychiatry Reason for Consult Under Jiang act Primary Care Physician Unknown HPI The patient was seen this morning at 8:30 AM The patient is a 32-year-old man, domiciled in [place] with his mother, unemployed, single, with psychiatric history of OCD, PTSD, depression, no previous psychiatric hospitalizations, no previous suicidal attempts, polysubstance dependence including amphetamines, benzodiazepines, opiates, no previous suicide attempts, poor impulse control, is currently under parole, medical history of seizures, arthritis, osteoporosis, who presents to the ED for evaluation of EXPARTE. Apparently patient has been Jiang acted multiple times and continues to be a threat to self. Patient continues to pick at his skin secondary to likely substance abuse. Per EXPARTE he has been using his narcotics in a different way than prescribed. Apparently patient snorting it as well as possibly injecting it. Patient denies any suicidal homicidal ideation. He denies any medical issues. On psychiatric evaluation the patient is calm, cooperative, he explains that his mother has been exaggerating her preoccupation about him. He says that he has been under stressed due to his legal condition, and for this reason he has been skin picking more than usual. However, the patient reports that he has been looking for a job "in order to improve my life". He denies depressive symptoms, he denies anhedonia, he denies hopelessness, he denies helplessness, he denies suicidal and homicidal ideation, denies visual and auditory hallucinations. The patient denies the use of illegal drugs, he says that all the drugs that he is using her prescribed. Patient reports that he is Adderall 30 mg, Ativan 1 mg 3 times daily, BuSpar 30 mg, Effexor 75 mg, Seroquel 400 mg prescribed by PCP. Review of Systems Constitutional: DENIES: Diaphoretic episodes, Fatigue, Fever, Weight gain, Weight loss, Chills, Dizziness, Change in appetite, Night Sweats Endocrine: DENIES: Heat/cold intolerance, Polydipsia, Polyuria, Polyphagia Ears, nose, mouth, throat: DENIES: Tinnitus, Hearing loss, Vertigo, Nasal discharge, Oral lesions, Throat pain, Hoarseness, Ear Pain, Running Nose, Epistaxis, Sinus Pain, Toothache, Odynophagia Respiratory: DENIES: Apneas, Cough, Snoring, Wheezing, Hemoptysis, Sputum production, Shortness of breath Cardiovascular: DENIES: Chest pain, Palpitations, Syncope, Dyspnea on Exertion , PND, Lower Extremity Edema, Orthopnea, Claudication Gastrointestinal: DENIES: Abdominal pain, Black stools, Bloody stools, Constipation, Diarrhea, Nausea, Vomiting, Difficulty Swallowing, Anorexia Genitourinary: DENIES: Sexual dysfunction, Urinary frequency, Urinary incontinence, Urgency, Hematuria, Dysuria, Nocturia, Penile Discharge, Testicular Pain, Testicular Swelling Musculoskeletal: DENIES: Joint pain, Muscle aches, Stiffness, Joint Swelling, Back pain, Neck pain Integumentary: DENIES: Abnormal pigmentation, Nail changes, Pruritus, Rash Hematologic/lymphatic: DENIES: Bruising, Lymphadenopathy Immunologic/allergic: DENIES: Eczema, Urticaria Neurologic: DENIES: Abnormal gait, Headache, Localized weakness, Paresthesias, Seizures, Speech Problems, Tremor, Poor Balance Psychiatric: DENIES: Anxiety, Confusion, Mood changes, Depression, Hallucinations, Agitation, Suicidal Ideation, Homicidal Ideation, Delusions Past Family Social History Coded Allergies: codeine (Unverified Allergy, Severe, 08/04/17) tramadol (Unverified Allergy, Severe, seizure, 08/04/17) cyclobenzaprine (Verified Allergy, Unknown, 08/04/17) fluvoxamine (Verified Allergy, Unknown, 08/04/17) zolpidem (Verified Allergy, Unknown, 08/04/17) MRI PRECAUTION (Verified Adverse Reaction, Severe, NON REVO PACEMAKER, ) Active Scripts Gabapentin (Gabapentin) 600 Mg Tab, 600 MG PO TID, #90 TAB 0 Refills Prov:Jarrod Bell MD 07/03/17 Levetiracetam (Keppra) 750 Mg Tab, 750 MG PO BID for Control Seizures, #60 TAB 0 Refills Prov:Jarrod Bell MD 07/03/17 Reported Medications Cholecalciferol (Vitamin D3) 1,000 Unit Cap, 1000 UNITS DAILY for Nutritional Supplement, #1 BOTTLE 0 Refills 10/29/17 Multi-Vit w/ Iron (Niferex Tablet) 150MG-60-1 Tablet, PO DAILY for Nutritional Supplement, TAB 0 Refills 10/29/17 Ranitidine (Zantac) 300 Mg Tab, 300 MG PO DAILY, TAB 0 Refills 10/29/17 Lisinopril (Lisinopril) 10 Mg Tab, 10 MG PO DAILY, #30 TAB 0 Refills 10/29/17 Levothyroxine (Synthroid) 25 Mcg Tab, 25 MCG PO DAILY for Thyroid, #30 TAB 0 Refills 10/29/17 Amitriptyline (Amitriptyline) 100 Mg Tab, 100 MG PO DAILY, TAB 10/29/17 Oxycodone (Oxycodone) 10 Mg Tab, 10 MG PO Q6HR for Pain Management, TAB 0 Refills 08/04/17 Lorazepam (Ativan) 1 Mg Tab, 1 MG PO Q8H Y for ANXIETY AND/OR AGITATION, TAB 0 Refills 08/04/17 Buspirone (Buspirone) 30 Mg Tab, 30 MG PO TID for Anxiety, TAB 0 Refills 07/10/17 Quetiapine (Seroquel) 400 Mg Tab, 400 MG PO HS, #30 TAB 0 Refills 07/10/17 Venlafaxine ER 24 HR (Effexor XR 24 HR) 75 Mg Cap, 75 MG PO TID, #30 CAP 0 Refills 07/10/17 Discontinued Reported Medications Albuterol 6.7 GM Inh (Proventil Hfa 6.7 GM Inh) 90 Mcg/Act Aer, 2 PUFF INH Q4- 6H Y for SHORTNESS OF BREATH, #1 INHALER 0 Refills 08/04/17 Metoprolol Tartrate (Metoprolol Tartrate) 25 Mg Tab, 12.5 MG PO BID, #60 TAB 0 Refills 08/04/17 Family Psych History She reports that his father is bipolar Social History Patient was born and raised in [facility], he lives [place] with his mother, he is unemployed, single, Patient's Strengths (min. 2) Verbal communication, family support Physical Exam Vital Signs Vital Signs Date Time Temp Pulse Resp B/P (MAP) Pulse Ox O2 Delivery O2 Flow Rate FiO2 10/30/17 10:40 10/30/17 06:20 96.7 70 18 100 Room Air Lab Results Test 10/29/17 19:00 10/30/17 01:52 White Blood Count 3.6 TH/MM3 Red Blood Count 4.46 MIL/MM3 Hemoglobin 12.5 GM/DL Hematocrit 37.6 % Mean Corpuscular Volume 84.1 FL Mean Corpuscular Hemoglobin 27.9 PG Mean Corpuscular Hemoglobin Concent 33.2 % Red Cell Distribution Width 15.5 % Platelet Count 215 TH/MM3 Mean Platelet Volume 7.8 FL Neutrophils (%) (Auto) 44.3 % Lymphocytes (%) (Auto) 40.9 % Monocytes (%) (Auto) 10.1 % Eosinophils (%) (Auto) 3.8 % Basophils (%) (Auto) 0.9 % Neutrophils # (Auto) 1.6 TH/MM3 Lymphocytes # (Auto) 1.5 TH/MM3 Monocytes # (Auto) 0.4 TH/MM3 Eosinophils # (Auto) 0.1 TH/MM3 Basophils # (Auto) 0.0 TH/MM3 CBC Comment DIFF FINAL Differential Comment Blood Urea Nitrogen 16 MG/DL Creatinine 1.00 MG/DL Random Glucose 73 MG/DL Total Protein 7.8 GM/DL Albumin 3.7 GM/DL Calcium Level 8.8 MG/DL Magnesium Level 2.1 MG/DL Alkaline Phosphatase 105 U/L Aspartate Amino Transf (AST/SGOT) 40 U/L Alanine Aminotransferase (ALT/SGPT) 159 U/L Total Bilirubin 0.2 MG/DL Sodium Level 139 MEQ/L Potassium Level 4.3 MEQ/L Chloride Level 106 MEQ/L Carbon Dioxide Level 25.6 MEQ/L Anion Gap 7 MEQ/L Estimat Glomerular Filtration Rate 87 ML/MIN Thyroid Stimulating Hormone 3rd Gen 0.415 uIU/ML Salicylates Level LESS THAN 1.7 MG/DL Acetaminophen Level LESS THAN 2.0 MCG/ML Ethyl Alcohol Level LESS THAN 3 MG/DL Urine Opiates Screen NEG Urine Barbiturates Screen NEG Urine Amphetamines Screen NEG Urine Benzodiazepines Screen NEG Urine Cocaine Screen NEG Urine Cannabinoids Screen NEG Mental Status Examination Appearance: Appropriate Consciousness: Alert Orientation: x4 Motor Activity: Normal gait Speech: Unremarkable Language: Adequate Fund of Knowledge: Adequate Attention and Concentration: Adequate Memory: Unremarkable Mood: Appropriate Affect: Appropriate Thought Process & Associations: Intact Thought Content: Appropriate Hallucination Type: None Delusion Type: None Suicidal Ideation: No Suicidal Plan: No Suicidal Intention: No Homicidal Ideation: No Homicidal Plan: No Homicidal Intention: No Insight: Adequate Judgment: Adequate Assessment & Plan Problem List: (1) OCD (obsessive compulsive disorder) ICD Codes: F42.9 - Obsessive-compulsive disorder, unspecified Assessment & Plan: On psychiatric evaluation today the patient is calm, cooperative, logical, coherent and relevant. The patient denies suicidal and homicidal ideation, he denies visual and auditory hallucinations. He denies symptoms of depression, reports symptomatology of anxiety, urgent and obsessive thoughts of skin picking are most probably related with OCD. Formication secondary to use of amphetamines could also account for skin picking behavior. He does not meet criteria for involuntary psychiatric admission. OCD symptoms can be very well treated in outpatient basis. I offer him to go to rehab, but he declines. Brief supportive psychotherapy, cycle patient provided. I will lift the Jiang act Assessment & Plan Estimated LOS: Mathew Singh MD Oct 30, 2017 13:07
== END 2017-10-30 11:06 | disposition home or self-care (01) ==
LOC: NEPJ 18:00
DX: F19.10 Other psychoactive substance abuse, uncomplicated (principal); F42.9 Obsessive-compulsive disorder, unspecified; I10 Essential (primary) hypertension; B19.20 Unspecified viral hepatitis C without hepatic coma; J45.909 Unspecified asthma, uncomplicated; M79.7 Fibromyalgia; F32.9 Major depressive disorder, single episode, unspecified; F43.10 Post-traumatic stress disorder, unspecified; Z72.0 Tobacco use; Z95.0 Presence of cardiac pacemaker; Z88.5 Allergy status to narcotic agent; Z88.8 Allergy status to other drugs, medicaments and biological substances; Z79.899 Other long term (current) drug therapy
CPT/HCPCS: 80053; 80307; 83735; 84443; 85025; 99283

== ENCOUNTER 2018-06-30 09:48 | Inpatient (IN) ==
[2018-06-30] MEDS ORDERED: Naloxone Inj 2 MG/2 ML Vial ONE (09:49)
[2018-06-30] MEDS ORDERED: Naloxone Inj 2 MG/2 ML Vial IV.PUSH ONE ×2 (09:59→10:54)
[2018-06-30] MEDS ORDERED: Sod Chloride 0.9% Inj 1,000 ML IV.SIG SCH ×3 (10:00→17:00)
[2018-06-30] MEDS ORDERED: SODIUM CHLOR 0.9% IV.SIG ONE ×2 (10:02→11:00)
[2018-06-30] MEDS ORDERED: Hydrocortisone Sod Succinate 100 MG Vial IV.PUSH ONE (10:02)
[2018-06-30] MEDS ORDERED: HYDROCORTISONE IV.SIG ONE ×2 (10:02→11:00)
[2018-06-30 10:14] LABS: ABG Base Excess -1.5 mmol/L (-2-2); ABG PCO2 30 mmHg (38-42); ABG PO2 326 mmHg (61-120)
[2018-06-30 10:25] LABS: Baso % (Auto) 0.1 % (0.0-2.0); Hematocrit 43.2 % (39.0-51.0); Hemoglobin 14.4 gm/dL (13.0-17.0); Lymph # (Auto) 0.3 th/mm3 (1.0-4.8); Lymph % (Auto) 2.2 % (9.0-44.0); Mean Corpuscular HGB Conc 33.3 % (32.0-36.0); Mean Corpuscular Hemoglobin 32.5 pg (27.0-34.0); Mean Corpuscular Volume 97.7 fL (80.0-100.0); Mean Platelet Volume 9.4 fL (7.0-11.0); Mono # (Auto) 0.5 th/mm3 (0.0-0.9); Mono % (Auto) 3.3 % (0.0-8.0); Neut # (Auto) 14.2 th/mm3 (1.8-7.7); Neut % (Auto) 94.4 % (16.0-70.0); Platelet Count 93 th/mm3 (150-450); Red Blood Count 4.42 mil/mm3 (4.50-5.90); Red Cell Distribution Width 16.5 % (11.6-17.2); White Blood Count 15.1 th/mm3 (4.0-11.0)
[2018-06-30 10:45] LABS: Alanine Aminotransferase 215 U/L (12-78); Albumin 3.5 g/dL (3.4-5.0); Anion Gap 12 meq/L (5-15); Aspartate Aminotransferase 598 U/L (15-37); Blood Urea Nitrogen 38 mg/dL (7-18); Calcium 7.5 mg/dL (8.5-10.1); Carbon Dioxide 24.3 meq/L (21.0-32.0); Chloride 95 meq/L (98-107); Glomerular Filtration Rate 18 mL/min (>89); Glucose,Random 94 mg/dL (74-106); Lipase 42 U/L (73-393); Magnesium 2.4 mg/dL (1.5-2.5); Potassium 5.3 meq/L (3.5-5.1); Sodium 131 meq/L (136-145)
--- NOTE | 2018-06-30 10:47 | CT ---
EXAM DATE: 06/30/2018 10:42 AM EST AGE/SEX: 32 years / Male INDICATIONS: Left arm weakness today. CLINICAL DATA: This is the patient's initial encounter. Patient reports that signs and symptoms have been present for 1 day and indicates a pain score of 0/10. MEDICAL/SURGICAL HISTORY: None. None. RADIATION DOSE: 56.35 CTDI (mGy) [place] [facility] [place]. . TECHNIQUE: CT of the head without contrast. Using automated exposure control and adjustment of the mA and/or kV according to patient size, radiation dose was kept as low as reasonably achievable to ob tain optimal diagnostic quality images. DICOM format image data is available electronically for revi ew and comparison. FINDINGS: Cerebrum: The ventricles are normal for age. No evidence of midline shift, mass lesion, hemorrhage or acute infarction. No extraaxial fluid collections are seen. Posterior Fossa: The cerebellum and brainstem are intact. The 4th ventricle is midline. The cerebe llopontine angle is unremarkable. Extracranial: The visualized portion of the orbits is intact. Skull: The calvaria is intact. No evidence of skull fracture. CONCLUSION: 1. Negative CT Head non contrast. 2. Stable exam without evidence of acute infarct, hemorrhage, mass or edema. . Electronically signed by: Rajiv Matias MD 06/30/2018 10:46 AM EST
[2018-06-30 10:48] LABS: Alkaline Phosphatase 200 U/L (45-117); Total Protein 8.3 g/dL (6.4-8.2)
--- NOTE | 2018-06-30 11:06 | ED ---
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 Pt last spoke with mother at approximately 9pm. This morning he did not answer the phone and mother called EMS. He had o2 sats in the 80s on scene. FSG was low and dextrose was given bringing it up to 80s. HR 120s upon arrival with BP 100/60. Related Data Allergies Allergy/AdvReac Type Severity Reaction Status Date / Time codeine Allergy Severe Hives Unverified 06/30/18 10:28 tramadol Allergy Severe seizure Unverified 08/04/17 18:49 cyclobenzaprine Allergy Unknown Unresponsiv Verified 06/30/18 10:28 e fluvoxamine Allergy Unknown Unresponsiv Verified 06/30/18 10:28 e zolpidem Allergy Unknown Unconscious Verified 06/30/18 10:28 Beta-Blockers Allergy Anaphylaxis Verified 06/30/18 10:28 (Beta-Adrenergic Bloc MRI PRECAUTION AdvReac Severe NON REVO Uncoded 08/04/17 18:49 PACEMAKER [facility] Medical History Medical History Adrenal insufficiency (Acute) Anxiety (Acute) Bradycardia (Acute) Compression fracture (Acute) Difficult intubation (Acute) Esophageal rupture (Acute) Fistula (Acute) Hypoglycemia (Acute) Liver disease (Acute) PTSD (post-traumatic stress disorder) (Acute) Pacemaker (Acute) Seizure (Acute) TIA (transient ischemic attack) (Acute) Social History Social History Substance History: No History of Abuse Second Hand Smoke Exposure: Yes Smoking Status: Current every day smoker Tobacco Type: Cigarettes How Often Do You Have a Drink Containing Alcohol: Never Recent Travel in [facility] within the Last 8 Weeks: No Recent Out of Country Travel within the Last 8 Weeks: No Immunization History Tetanus Immunization: Unsure Course Initial Documented Vital Signs Pulse Rate 127 H 06/30/18 09:52 Respiratory Rate 14 06/30/18 09:52 Blood Pressure 116/51 L 06/30/18 09:52 Pulse Oximetry 100 06/30/18 09:52 Last Documented Vital Signs Temperature 97.8 F 06/30/18 09:57 Pulse Rate 125 H 06/30/18 11:50 Respiratory Rate 18 06/30/18 11:50 Blood Pressure 117/64 06/30/18 11:50 Pulse Oximetry 97 06/30/18 11:50 Critical Care Time Critical Care Time: Yes Total Critical Care Time: 45 Attestation: Aggregate critical care time was 45 minutes. Time to perform other separately billable procedures was not included in the critical care time. My time did not include minutes spent treating any other patients simultaneously or on activities that did not directly contribute to the patient's treatment. The services I provided to this patient were to treat and/or prevent clinically significant deterioration that could result in: permanent disability, MODS I provided critical care services requiring my management, as noted below: Chart data review, documentation time, medication orders and management, vital sign assessments/reviewing monitor data, ordering and reviewing lab tests, ordering and interpreting/reviewing x-rays and diagnostic studies, care of the patient and discussion of the patient with the admitting physicians. Medical Decision Making MDM Narrative Medical decision making narrative: Pt arrives with AMS of unknown etiology with tachycardia and hypotension. Work up shows ARF, L lung base density, and polysubstance abuse. WBC 15 with 29% bands Platelets 93 Hgb 14.4 Na 131 K 5.3 BUN 38 Cr 3.87 Lactic acid 4.5 AST 598 ALT 215 Alk phos 200 Tn < 0.02 Lipase 42 ABG 7.48/, pO2 326 on NRB CXR L base PNA CK added on given ARF 3L NS ordered Zosyn/Vanco with renal dosing added along with sepsis protocol lactic acid and blood cultures d/w Dr Callahan for [facility] service Medical Screen Exam Complete: Yes Emergency Medical Condition: Yes Lab Data Result diagrams: 06/30/18 10:14 06/30/18 10:14 Lab Results 06/30/18 06/30/18 06/30/18 Range/Units 10:00 10:14 10:14 WBC 15.1 H (4.0-11.0) th/mm3 RBC 4.42 L (4.50-5.90) mil/mm3 Hgb 14.4 (13.0-17.0) gm/dL Hct 43.2 (39.0-51.0) % MCV 97.7 (80.0-100.0) fL MCH 32.5 (27.0-34.0) pg MCHC 33.3 (32.0-36.0) % RDW 16.5 (11.6-17.2) % Plt Count 93 L (150-450) th/mm3 MPV 9.4 (7.0-11.0) fL Prelim Diff (Auto) Slide review pending Neut % (Auto) 94.4 H (16.0-70.0) % Lymph % (Auto) 2.2 L (9.0-44.0) % Hoke % (Auto) 3.3 (0.0-8.0) % Eos % (Auto) 0.0 (0.0-4.0) % Baso % (Auto) 0.1 (0.0-2.0) % Neut # (Auto) 14.2 H (1.8-7.7) th/mm3 Lymph # (Auto) 0.3 L (1.0-4.8) th/mm3 Hoke # (Auto) 0.5 (0.0-0.9) th/mm3 Eos # (Auto) 0.0 (0.0-0.4) th/mm3 Baso # (Auto) 0.0 (0.0-0.2) th/mm3 WBC Differential Manual diff final Seg Neuts % (Manual) 68 (16-70) % Band Neuts % (Manual) 23 H (0-6) % Monocytes % (Manual) 2 (0-8) % Metamyelocytes % (Man) 5 H (0-1) % Myelocytes % (Man) 2 H (0-0) % Abs Neuts (Manual) 14.8 H (1.8-7.7) th/mm3 Differential Comment . Toxic Vacuolation Present H (None) Platelet Estimate Low L (Normal) Platelet Morphology Normal (Normal) Puncture Site Right brachial Patient Temperature 98.6 O2 Saturation 98 (90-100) % ABG pH 7.48 H (7.380-7.420) ABG pCO2 30 L (38-42) mmHg ABG pO2 326 H (61-120) mmHg ABG HCO3 22 (22-26) mmol/L ABG O2 Content 19.7 (12.0-20.0) Vol % ABG Base Excess -1.5 (-2-2) mmol/L ABG Methemoglobin 0.6 (0-2) % Dayday Test Present Hemoglobin 13.8 (12.0-16.0) G/DL Carboxyhemoglobin 1.3 (0-4) % O2 Delivery Device Non-rebreathing mask Liter Flow 15.00 L/M Inspired O2 100 % Critical Value No Sodium 131 L (136-145) meq/L Potassium 5.3 H (3.5-5.1) meq/L Chloride 95 L (98-107) meq/L Carbon Dioxide 24.3 (21.0-32.0) meq/L Anion Gap 12 (5-15) meq/L BUN 38 H (7-18) mg/dL Creatinine 3.87 H (0.60-1.30) mg/dL Estimated GFR 18 L (>89) mL/min Random Glucose 94 (74-106) mg/dL Lactic Acid (0.4-2.0) mmol/L Calcium 7.5 L (8.5-10.1) mg/dL Magnesium 2.4 (1.5-2.5) mg/dL Total Bilirubin 0.6 (0.2-1.0) mg/dL AST 598 H (15-37) U/L ALT 215 H (12-78) U/L Alkaline Phosphatase 200 H (45-117) U/L Troponin I Less than 0.02 L (0.02-0.05) ng/mL Total Protein 8.3 H (6.4-8.2) g/dL Albumin 3.5 (3.4-5.0) g/dL Lipase 42 L (73-393) U/L Urine Opiates Screen (Neg) Ur Barbiturates Screen (Neg) Ur Amphetamines Screen (Neg) U Benzodiazepines Scrn (Neg) Urine Cocaine Screen (Neg) U Cannabinoids Screen (Neg) Serum Alcohol Less than 3 (0-5) mg/dL 18 06/30/18 Range/Units 10:14 11:18 WBC (4.0-11.0) th/mm3 RBC (4.50-5.90) mil/mm3 Hgb (13.0-17.0) gm/dL Hct (39.0-51.0) % MCV (80.0-100.0) fL MCH (27.0-34.0) pg MCHC (32.0-36.0) % RDW (11.6-17.2) % Plt Count (150-450) th/mm3 MPV (7.0-11.0) fL Prelim Diff (Auto) Neut % (Auto) (16.0-70.0) % Lymph % (Auto) (9.0-44.0) % Hoke % (Auto) (0.0-8.0) % Eos % (Auto) (0.0-4.0) % Baso % (Auto) (0.0-2.0) % Neut # (Auto) (1.8-7.7) th/mm3 Lymph # (Auto) (1.0-4.8) th/mm3 Hoke # (Auto) (0.0-0.9) th/mm3 Eos # (Auto) (0.0-0.4) th/mm3 Baso # (Auto) (0.0-0.2) th/mm3 WBC Differential Seg Neuts % (Manual) (16-70) % Band Neuts % (Manual) (0-6) % Monocytes % (Manual) (0-8) % Metamyelocytes % (Man) (0-1) % Myelocytes % (Man) (0-0) % Abs Neuts (Manual) (1.8-7.7) th/mm3 Differential Comment Toxic Vacuolation (None) Platelet Estimate (Normal) Platelet Morphology (Normal) Puncture Site Patient Temperature O2 Saturation (90-100) % ABG pH (7.380-7.420) ABG pCO2 (38-42) mmHg ABG pO2 (61-120) mmHg ABG HCO3 (22-26) mmol/L ABG O2 Content (12.0-20.0) Vol % ABG Base Excess (-2-2) mmol/L ABG Methemoglobin (0-2) % Dayday Test Hemoglobin (12.0-16.0) G/DL Carboxyhemoglobin (0-4) % O2 Delivery Device Liter Flow L/M Inspired O2 % Critical Value Sodium (136-145) meq/L Potassium (3.5-5.1) meq/L Chloride (98-107) meq/L Carbon Dioxide (21.0-32.0) meq/L Anion Gap (5-15) meq/L BUN (7-18) mg/dL Creatinine (0.60-1.30) mg/dL Estimated GFR (>89) mL/min Random Glucose (74-106) mg/dL Lactic Acid 4.5 H* (0.4-2.0) mmol/L Calcium (8.5-10.1) mg/dL Magnesium (1.5-2.5) mg/dL Total Bilirubin (0.2-1.0) mg/dL AST (15-37) U/L ALT (12-78) U/L Alkaline Phosphatase (45-117) U/L Troponin I (0.02-0.05) ng/mL Total Protein (6.4-8.2) g/dL Albumin (3.4-5.0) g/dL Lipase (73-393) U/L Urine Opiates Screen Pos H (Neg) Ur Barbiturates Screen Neg (Neg) Ur Amphetamines Screen Pos H (Neg) U Benzodiazepines Scrn Neg (Neg) Urine Cocaine Screen Neg (Neg) U Cannabinoids Screen Neg (Neg) Serum Alcohol (0-5) mg/dL Imaging Data Radiologist's impression: Chest X-Ray 06/30/18 09:59 CONCLUSION: Interval elevation of the left hemidiaphragm compared to previous study in 2017 Minimal left basilar airspace disease Otherwise stable chest. Head CT 06/30/18 09:59 CONCLUSION: 1. Negative CT Head non contrast. 2. Stable exam without evidence of acute infarct, hemorrhage, mass or edema. . Discharge Plan Discharge Disposition Patient Disposition: ED Admit(ED Internal Use Only) Discharge Order Discharge Orders: ED Use Only Admit Order (Routine); Ordered 06/30/18 Ordered By: Jarrod Bell Physicians Team ED Provider: Jarrod Bell Primary Care Provider: Faith Eugene Attending Provider: Lio Callahan Interventions Interventions: Vital Signs Last Done: 06/30/18 10:59 Status ED Status: Admitted Patient
[2018-06-30 11:18] LABS: Metamyelocytes 5 % (0-1); Monocytes 2 % (0-8); Myelocytes 2 % (0-0)
[2018-06-30 11:19] LABS: Platelet Morphology Normal (Normal); Toxic Vacuolation Present
--- NOTE | 2018-06-30 11:29 | XR ---
EXAM DATE: 06/30/2018 11:22 AM EST AGE/SEX: 32 years / Male INDICATIONS: Shortness of breath. CLINICAL DATA: This is the patient's initial encounter. Patient reports that signs and symptoms have been present for 1 day and indicates a pain score of Nonresponsive. MEDICAL/SURGICAL HISTORY: Cardiovascular disease. Asthma. Hepatitis C. Pacemaker. Thoracotomy , left. COMPARISON: [facility] [place]ST [place] & LAT, 07/10/2017. . FINDINGS: The left hemidiaphragm is elevated Intimal airspace disease is seen in the left base. Right lung is clear. Heart remains normal in size. Pacemaker is in stable position CONCLUSION: Interval elevation of the left hemidiaphragm compared to previous study in 2017 Minimal left basilar airspace disease Otherwise stable chest. Electronically signed by: Rajiv Matias MD 06/30/2018 11:28 AM EST
[2018-06-30] MEDS ORDERED: Piperacil/Tazo 2.25 GM Premix 50 ML IV.SIG ONE (11:36)
[2018-06-30] MEDS ORDERED: Bisacodyl 10 MG Supp RECTAL PRN (11:38)
[2018-06-30 11:39] LABS: Amphetamine Screen,Urine Pos (Neg); Barbiturate Screen,Urine Neg (Neg); Cannabinoid Screen,Urine Neg (Neg); Cocaine Screen,Urine Neg (Neg)
[2018-06-30 11:40] LABS: Opiate Screen,Urine Pos (Neg)
[2018-06-30] MEDS ORDERED: Dextrose 5%/NaCl 0.9% Inj 1,000 ML IV.CONT SCH (11:45)
[2018-06-30] MEDS ORDERED: Piperacil/Tazo 2.25 GM Premix 50 ML IV.SIG SCH ×2 (11:45→12:30)
[2018-06-30] MEDS ORDERED: Insulin NovoLIN Regular Correctional Sugar Inj SQ SCH (12:00)
[2018-06-30] MEDS ORDERED: Vancomycin Inj 1,000 MG in Sodium Chlor 0.9% Inj 250 ML IV.SIG SCH (12:00)
[2018-06-30] MEDS: Heparin - SQ 10,000 UNITS/ML Vial SQ SCH (12:09)
[2018-06-30] MEDS: Pantoprazole Inj 40 MG Vial IV.PUSH SCH (12:09)
[2018-06-30 14:06] LABS: INR 1.4 Ratio; Prothrombin Time 13.7 sec (9.8-11.6)
--- NOTE | 2018-06-30 14:14 | MH ---
cc: Lio Callahan MD DATE OF ADMISSION: 06/30/2018 HISTORY OF PRESENT ILLNESS: The patient is a 32-year-old with a past medical history of Boerhaave's syndrome, status post a spit fistula esophagectomy at the neck, seizure disorder, adrenal insufficiency, pituitary dysfunction, bradycardia with pacemaker placement, chronic back pain, major depressive disorder and chronic opiate use. He presented to [facility] ED with altered mental status. The patient lives in a motel and when his mom tried to contact him and he did not answer the phone, she subsequently called EMS and on arrival, they found him confused, mumbling, he was hypoglycemic with a blood sugar in the 40s. The patient was given dextrose which improved his blood sugar to the 80s. On arrival to the ER, he was tachycardic, hypotensive, with a systolic blood pressure in the 90s. His urine drug screen was positive for opiates and amphetamines. His laboratory data significant for renal failure with a creatinine 3.87, with lactic acidosis, lactic acid level 4.5. The patient also had elevated liver enzymes with AST 598, ALT 215, total bilirubin 0.6. There is no evidence of any fever; however, he had leukocytosis with a WBC of 15.1. Due to altered mental status, a CT scan of the brain was obtained which showed no acute intracranial findings. A chest x-ray in the ED showed minimal left basilar airspace disease. In the ED, he was given 2 liters of crystalloids, vancomycin and Zosyn. The patient was hospitalized in [facility] back in October for Boerhaave syndrome and underwent a spit fistula esophagectomy. His hospital course was complicated by respiratory failure requiring intubation, septic shock, acute renal failure, rhabdomyolysis, on hemodialysis for 3 weeks. According to the patient's mother who is a nurse, he also had seizure type activity about 10 days ago and he initially went to [facility]; however, she transferred him to [facility] where he was discharged approximately 1 week ago. The patient has a J-tube in place. He is currently on 3 liter oxygen with saturations 97%. Current blood pressure 117/64, pulse IV hydration. PAST MEDICAL HISTORY: Significant for: 1. Boerhaave syndrome. 2. Adrenal insufficiency. 3. Pituitary dysfunction. 4. Posttraumatic stress disorder. 5. Seizure disorder. PAST SURGICAL HISTORY: 1. Previous spit fistula esophagectomy. 2. Previous J-tube placement. 3. Previous pacemaker placement for bradycardia. MEDICATIONS AT HOME: Include: 1. Keppra. 2. Gabapentin. 3. Ativan. 4. Morphine. 5. Seroquel. ALLERGIES: Multiple, which include: 1. CODEINE. 2. TRAMADOL 3. CYCLOBENZAPRINE. SOCIAL HISTORY: The patient is a smoker, nondrinker. FAMILY HISTORY: Noncontributory to present illness. REVIEW OF SYSTEMS: As per HPI. REVIEW OF SYSTEMS: Unremarkable. PHYSICAL EXAMINATION: GENERAL: A 32-year-old male lying in bed, in no acute respiratory distress. VITAL SIGNS: Temperature 97.6, pulse of 125, blood pressure 117/64, saturation 97% on 3 liter oxygen. HEENT: Atraumatic, normocephalic. Pupils equal and round, reactive to light and accommodation. Extraocular muscles intact. Conjunctivae pink. Nonicteric sclerae. Oral mucosa dry mucous membranes. NECK: Supple. No JVD, adenopathy, or thyromegaly. Trachea midline. Spit fistula bag to the neck in place. CARDIOVASCULAR: Tachycardic. Normal S1, S2. No murmurs, rubs or gallops noted. PULMONARY: Bilateral equal air entry. No rales or wheezing. ABDOMEN: Soft, nontender, nondistended, positive bowel sounds. J-tube in place. EXTREMITIES: No cyanosis, clubbing, edema. NEUROLOGIC: No focal sensory deficit. LABORATORY DATA: WBC 15.1, hemoglobin 14, hematocrit 43, platelet count 93. Sodium 131, potassium 5.3, chloride 95, CO2 of 24, BUN 38, creatinine 3.7, glucose of 94. Lactic acid 4.5, AST 598, ALT 215, alkaline phosphatase 200. Troponin less than 0.02, lipase 42, albumin 3.5. Urine drug screen positive for opiates and amphetamines. ABG on nonrebreather showed a pH of 7.48, CO2 30, PaO2 326, bicarbonate 22, saturation 98%. RADIOGRAPHIC STUDIES: CT brain showed no acute intracranial findings. Chest x-ray showed minimal left basilar airspace disease. IMPRESSION: 1. Respiratory insufficiency Altered mental status, multifactorial, likely secondary to a combination of uremia, hypoglycemia, possible subclinical seizures. 2. Status post hypoglycemic episode. 3. Adrenal insufficiency. 4. Acute renal failure, Rhabdo 5. Lactic acidemia. 6. Elevated liver enzymes. 7. Leukocytosis with bandemia. 8. Seizure disorder. 9. Left basilar airspace disease. 10. History of pituitary dysfunction. 11. History of Boerhaave syndrome with spit fistula esophagectomy. 12. Previous J-tube placement. 13. Pacemaker secondary to bradycardia. RECOMMENDATIONS: 1. Monitor neuro status closely. A CT scan of the brain showed no intracranial findings. No acute intracranial findings. His urine drug screen was positive for amphetamines and opiates. We will resume antiseizure medication, which include Keppra and gabapentin. I will consult neurology service and will obtain EEG. Ativan 1 mg IV every 4 hours p.r.n. for seizures. 2. Continue with oxygen and maintain sats above 92%. 3. Bronchodilators in the form of DuoNeb every 4 hours plus every 2 hours p.r.n. for shortness of breath. 4. Monitor heart rate and blood pressure closely and maintain MAP greater than 65 mmHg. 5. Serial lactic acid monitoring until clear. He was given 2 liters of crystalloids in the emergency department. We will place on maintenance fluids, D5 normal saline at 125 mL an hour. 6. Serial lactic acid monitoring until clear. 7. Monitor renal function, I's and O's, and avoid nephrotoxins. IV hydration as stated above. Monitor CK's. Check ultrasound of the abdomen. 8. Keep n.p.o. for now. Monitor liver function tests and check US liver and hepatitis profile. Placed on Protonix 40 mg IV daily for gastrointestinal prophylaxis. Resume tube feeds via J-tube after ultrasound liver is obtained. 9. Continue with broad spectrum antibiotics. He was given vancomycin and Zosyn in the ER. Monitor for signs of infection, which include fever and WBC. Check blood cultures x 2 sets, urinalysis with culture if indicated, and sputum culture. 10. Place on hydrocortisone 100 mg IV every 8 hours for hypoglycemic episodes and D5 normal saline at 125 mL an hour. Accu-Chek every 2 hours for now. Check a baseline TSH level. The patient was given hydrocortisone 100 mg IV push in the ED. 10. Monitor CBC and check coags. 11. Gastrointestinal prophylaxis with Protonix 40 mg daily and deep venous thrombosis prophylaxis with sequential compression devices and heparin subcutaneously. 12. Case discussed with nursing staff and the patient's mother at the bedside. MD MIREILLE Maldonado/thomas/jesus , 01:12 PM , 01:28 PM AUTUMN
[2018-06-30] MEDS: Gabapentin 300 MG Capsule PO SCH ×2 (14:37→17:12)
[2018-06-30] MEDS ORDERED: Sod Chloride 0.9% Inj 1,000 ML IV.SIG ONE (15:00)
[2018-06-30] MEDS: Insulin NovoLIN Regular Correctional Sugar Inj SQ SCH ×6 (15:12→23:16)
[2018-06-30 15:18] LABS: CKMB Percent 1.8 % (0.0-4.0); Creatine Kinase MB 590.8 ng/mL (0.5-3.6)
--- NOTE | 2018-06-30 15:43 | US ---
EXAM DATE: 06/30/2018 3:33 PM EST AGE/SEX: 32 years / Male INDICATIONS: Elevated lab values. CLINICAL DATA: This is the patient's initial encounter. Patient reports that signs and symptoms have been present for 1 day and indicates a pain score of 3/10. MEDICAL/SURGICAL HISTORY: . Adrenal insufficiency. Anxiety. Bradycardia. Compression fracture. Esophageal rupture. Fistula. Hypoglycemia. Liver disease. PTSD. Seizures. TIA. Pacemaker. COMPARISON: [facility] [place], CT ABDOMEN & PELVIS W CONTRAST, 10/31/2016. . MEASUREMENTS: Liver:__ 18.9 cm. Common Bile Duct:___ Nonvisualized. Right Kidney:___12.4 x 5.9 x 4.7 cm. Left Kidney:___11.1 x 5.3 x 6.6 cm. Spleen:___16.9 cm. FINDINGS: Liver: The liver appears enlarged. Focal hepatic lesion is not identified. Portal Vein: Hepatopedal flow seen in portal vein. Common Duct: No intraluminal mass or stone visualized. Gallbladder: Demonstrates no wall thickening or pericholecystic fluid. No stones visualized. Pancreas: Not well visualized. Right Kidney: Increased echogenicity. No mass or hydronephrosis. Left Kidney: Increased echogenicity. No mass or hydronephrosis. Ascites: None Pleural Effusion: Right Spleen: The spleen is enlarged. No focal splenic lesion is seen. Aorta: Non aneurysmal. IVC: Within normal limits Other: There is a right pleural effusion. CONCLUSION: 1. The kidneys demonstrate increased echogenicity concerning for medical renal disease. 2. Hepatosplenomegaly. 3. Right pleural effusion. Electronically signed by: Lawrence Inman MD 06/30/2018 3:41 PM EST
[2018-06-30 16:35] LABS: Albumin 2.6 g/dL (3.4-5.0); Calcium 7.3 mg/dL (8.5-10.1); Carbon Dioxide 19.2 meq/L (21.0-32.0); Potassium 5.6 meq/L (3.5-5.1); Total Protein 7.2 g/dL (6.4-8.2)
--- NOTE | 2018-06-30 16:37 | ECG ---
Date Performed: 06/30/2018 Time Performed: 10:02:39 PTAGE: 32 years EKG: SINUS TACHYCARDIA Since the previous tracing, no significant change noted ABNORMAL RHYTHM E CG PREVIOUS TRACING : 07/12/2017 01.19 DOCTOR: Russ Skinner Interpretating Date/Time 06/30/2018 16:36:03
--- NOTE | 2018-06-30 16:42 | P.DIET ---
Nutritional Evaluation Type of nutrition evaluation: initial Nutrition consult regarding: Tube Feeding Nutrition screening: MDC (TF'ing) Screening comments: 06/30 MDC for TF'ing Objective - Diagnosis ARF, PNA, AMS, Rhabodomylosis - Objective Body Mass Index: 24.5 % IBW: 108 (IBW = 136lb) Body Weight Used for Calculations: Actual (66.9kg) Energy Needs - Lower Range (kCal/kg): 28 Energy Needs - Upper Range (kCal/kg): 32 Lower Limit kCal/kg (kCals): 1,873 Upper Limit kCal/kg (kCals): 2,141 Lower Limit Protein Factor (Grams per Kg): 0.8 Upper Limit Protein Factor (Grams per Kg): 1.0 Lower Protein Needs (Protein): 54 Upper Protein Needs (Protein): 67 Dietitian Reviewed in Medical Record: Curent medications, Intake & Output, Labs , Medical history, Tube feeding Diet Order: TF'ing Objective Comments: PMH: Boorhaave Syndrome, esophageal ostomy to neck bag, TIA, PTSD, PPM Labs: BUN 38, Cr 3.87, GFR 18, POC glucose 114 Assessment Assessment: MDC for TF'ing received on 06/30. Pt currently on Glucerna 1.5 @ 50mL/hr per MD. RD to recommend Suplena 1.8 @ 50mL to provide 2160kcal, 54g of protein, and 886mL of free water to best meet pts nutritional needs. Monitor renal labs. Continue to monitor for TF tolerance. Labs reviewed, dietitian following. Recommendations: 1. RD to recommend Suplena 1.8 @ 50mL to best meet pts nutritional needs 2. Monitor renal labs 3. Continue to monitor for TF tolerance 4. Dietitian following Dietitian to Monitor: Lab values, Renal labs, Intake & Output, Tube feeding tolerance, Medical course
[2018-06-30] MEDS ORDERED: Sodium Bicarbonate 8.4% Inj 50 MEQ/50 ML Syringe IV.PUSH ONE (16:53)
[2018-06-30] MEDS ORDERED: Sodium Polystyrene Sulfonate/Sorbitol Liq 15 GM/60 ML UDC PO ONE (16:53)
--- NOTE | 2018-06-30 17:33 | P.CONNP ---
History of Present Illness Service: Nephrology Consult date: 06/30/18 Requesting Physician: Lio Callahan Reason for Consult: ARF rhabdomyolysis Primary Care Provider: Faith Eugene MD Chief Complaint: Altered mental status History of Present Illness: Patient is a 32-year-old male with history of Boerhaave syndrome, he has a bag in the neck fluid collection, difficulty in swallowing, pacemaker, bradycardia, Mario's disease, bipolar disorder ADHD, patient is an altered mental status apparently the mother did not hear from him since 9 PM he was found in altered mental status and in acute renal failure with underlying rhabdomyolysis. Creatinine was 3.8 which improved after giving him fluid boluses to 3.2, his potassium was 5.3 which got worse to 5.6. Review of Systems unobtainable due to mental status PMFSH - History History Provided By: Medical Record - Medical History Medical History: Medical History (Last Reviewed 06/30/18 @ 17:26 by Aniya Solis MD) Adrenal insufficiency Anxiety Bradycardia Compression fracture Difficult intubation Esophageal rupture Fistula Hypoglycemia Liver disease PTSD (post-traumatic stress disorder) Pacemaker Seizure TIA (transient ischemic attack) - Social History I have reviewed the patient's Social History: Yes - Tobacco History Second Hand Smoke Exposure: Yes Tobacco Use In Past 30 Days: Yes Smoking Status: Current every day smoker Tobacco Type: Cigarettes - Alcohol History How Often Do You Have a Drink Containing Alcohol: Never - Substance Use History Substance History: No History of Abuse - Travel History Recent Travel in the [place] Within the Last 8 Weeks: No Recent Travel Out of the Country Within the Last 8 Weeks: No - Immunization History Tetanus Immunization: Unsure Medications and Allergies Active Medications: Active Medications Al Hydroxide/Mg Hydroxide (Milk Of Magntiti Liq) 30 ml PO Q12H PRN PRN Reason: Mild Constipation Albuterol (Duoneb Neb (Prn)) 1 ampul NEB Q2HR NEB PRN PRN Reason: WHEEZING Albuterol (Duoneb Neb (Felipa)) 1 ampul NEB Q4HR NEB FELIPA Last Admin: 06/30/18 15:53 Dose: Not Given Bisacodyl (Dulcolax Supp) 10 mg RECTAL DAILY PRN PRN Reason: SEVERE CONSITIPATION Chlorhexidine Gluconate (Chlorhexidine 2% Cloth) 3 pack TOPICAL DAILY@0400 [facility] Stop: 07/06/18 03:59 Chlorhexidine Gluconate (Chlorhexidine 2% Cloth) 3 pack TOPICAL DAILY@0400 PRN PRN Reason: Extra cloth needed Stop: 07/06/18 03:59 Dextrose (D50w Vial) 50 ml IV.PUSH UNSCH PRN PRN Reason: PER HYPOGLYCEMIA PROTOCOL Gabapentin (Neurontin) 300 mg PO TID FELIPA Last Admin: 06/30/18 17:12 Dose: 300 mg Glucagon (Glucagon Inj) 1 mg OTHER PRN PRN PRN Reason: for Hypoglycemia Protocol Heparin Sodium (Porcine) (Heparin Inj) 5,000 units SQ Q12H FELIPA Last Admin: 06/30/18 12:09 Dose: Not Given Hydrocortisone Sodium Succinate (Solucortef Inj) 100 mg IV.PUSH Q8HR FELIPA Vancomycin HCl 1,000 mg/ (Sodium Chloride) 250 mls @ 250 mls/hr IV.SIG [employer]ING [employer]TER FELIPA Levetiracetam 500 mg/ Sodium (Chloride) 105 mls @ 400 mls/hr IV.SIG Q12H FELIPA Last Admin: 06/30/18 14:37 Dose: 400 mls/hr Piperacillin/Tazobactam/Dextrose (Zosyn 2.25 Gm Premix) 50 mls @ 100 mls/hr IV.SIG Q8H [facility]EL[facility]A Sodium Bicarbonate 150 meq/ (Dextrose) 1,000 mls @ 150 mls/hr IV.CONT .Q6H40M FELIPA Sodium Chloride (Ns Inj) 1,000 mls @ 1,000 mls/hr IV.SIG BOLUS FEL[facility]A Stop: 06/30/18 17:59 Last Admin: 06/30/18 17:12 Dose: 1,000 mls/hr Calcium Gluconate 1 gm/ Sodium (Chloride) 110 mls @ 110 mls/hr IV.SIG ONCE ONE Stop: 06/30/18 18:59 Insulin Human Regular (Novolin R Correctional Sugar Inj) 0 units SQ Q2HR FELIPA; Protocol Last Admin: 06/30/18 17:12 Dose: Not Given Lactulose (Lactulose Liq) 30 ml PO DAILY PRN PRN Reason: SEVERE CONSITIPATION Morphine Sulfate (Morphine Inj) 1 mg IV.PUSH Q4H PRN PRN Reason: PAIN SCALE 3 TO 5 Pantoprazole Sodium (Protonix Inj) 40 mg IV.PUSH DAILY FELIPA Last Admin: 06/30/18 12:09 Dose: 40 mg Sennosides (Senokot) 17.2 mg PO Q12H PRN PRN Reason: Moderate Constipation Sodium Chloride (Ns Flush) 2 ml IV.FLUSH PRN PRN PRN Reason: FLUSH AFTER USING IV ACCESS Allergies Allergy/AdvReac Type Severity Reaction Status Date / Time codeine Allergy Severe Hives Unverified 06/30/18 10:28 tramadol Allergy Severe seizure Unverified 08/04/17 18:49 cyclobenzaprine Allergy Unknown Unresponsiv Verified 06/30/18 10:28 e fluvoxamine Allergy Unknown Unresponsiv Verified 06/30/18 10:28 e zolpidem Allergy Unknown Unconscious Verified 06/30/18 10:28 Beta-Blockers Allergy Anaphylaxis Verified 06/30/18 10:28 (Beta-Adrenergic Bloc MRI PRECAUTION AdvReac Severe NON REVO Uncoded 08/04/17 18:49 PACEMAKER Home Medications Medication Instructions Recorded Confirmed Type albuterol sulfate [Proventil HFA] INHALATION Q3-4H PRN 06/30/18 History fentanyl 1 patch TRANSDERMAL Q72H 06/30/18 06/30/18 History gabapentin 300 mg PO TID 06/30/18 06/30/18 History levetiracetam [Keppra] 750 mg PO BID 06/30/18 06/30/18 History levothyroxine [Synthroid] 75 mcg PO DAILY 06/30/18 06/30/18 History lorazepam [Ativan] 1 mg PO BID 06/30/18 06/30/18 History morphine 15 mg PO Q4-6H PRN 06/30/18 06/30/18 History quetiapine [Seroquel] 400 mg PO BID 06/30/18 06/30/18 History Exam Vital signs: Vital Signs 06/30/18 09:52 06/30/18 09:57 06/30/18 10:32 Temperature 97.8 F Pulse Rate 127 H 123 H Respiratory Rate 14 18 Blood Pressure 116/51 L 116/51 L Pulse Oximetry 100 99 99 06/30/18 10:52 06/30/18 10:59 06/30/18 11:50 Temperature Pulse Rate 125 H 124 H 125 H Respiratory Rate 22 18 18 Blood Pressure 93/50 L 103/54 L 117/64 Pulse Oximetry 100 100 97 06/30/18 13:45 06/30/18 15:00 06/30/18 15:54 Temperature 98.0 F Pulse Rate 124 H 129 H Respiratory Rate 14 18 Blood Pressure 101/57 L 110/62 Pulse Oximetry 93 L 100 99 06/30/18 16:00 Temperature 98.0 F Pulse Rate 126 H Respiratory Rate 16 Blood Pressure 113/62 Pulse Oximetry 100 Intake & Output 06/29/18 06/30/18 06/30/18 18:59 06:59 18:59 Intake Total 2005 Balance 2005 Weight 66.9 kg Intake: IV 2005 SoluCORTEF Inj 200 MG In NS Inj 200 ML @ 8.333 mls/hr IV.SIG ONCE ONE Rx#:[id number] NS Inj 1,000 ML @ 1000 mls/hr 1999 IV.SIG BOLUS [facility] Rx#:[id number] Other: Weight On Admission 66.9 kg Narrative: Physical exam GENERAL: MAL-nourished, well-developed patient. SKIN: Warm and dry. HEAD: Normocephalic. EYES: No scleral icterus. No injection or drainage. NECK: Supple, there is a bag on the left side of the neck CARDIOVASCULAR: Tachycardia RESPIRATORY: Breath sounds equal bilaterally. No accessory muscle use. GASTROINTESTINAL: Abdomen soft, non-tender, nondistended. EXTREMITIES: As above NEUROLOGICAL: Patient wakes up has lethargy and confusion Results - Lab Results 06/30/18 17:08 06/30/18 20:48 Most recent lab results ABG pH 7.48 (7.380-7.420) H 06/30/18 10:00 ABG pCO2 30 mmHg (38-42) L 06/30/18 10:00 ABG pO2 326 mmHg (61-120) H 06/30/18 10:00 ABG HCO3 22 mmol/L (22-26) 06/30/18 10:00 Calcium 7.3 mg/dL (8.5-10.1) L* 06/30/18 15:41 Magnesium 2.4 mg/dL (1.5-2.5) 06/30/18 10:14 Assessment and Plan - Assessment (1) Acute renal failure Code(s): N17.9 - Acute kidney failure, unspecified Status: Acute (2) Rhabdomyolysis Code(s): M62.82 - Rhabdomyolysis Status: Acute (3) Boerhaave syndrome Code(s): K22.3 - Perforation of esophagus Status: Acute (4) Addisons disease Code(s): E27.1 - Primary adrenocortical insufficiency Status: Acute (5) Metabolic acidosis Code(s): E87.2 - Acidosis Status: Acute (6) Hyperkalemia Code(s): E87.5 - Hyperkalemia Status: Acute - Plan Discussed with Dr. Callahan Continue IV fluid to D5 with 3 A of bicarbonate at 150 cc an hour Continue to hydrate him Follow CPKs Patient receiving calcium gluconate, D50, insulin, sodium bicarbonate He needs steroids agree with hydrocortisone And avoid nephrotoxic Follow BMP
[2018-06-30] MEDS ORDERED: Calcium Gluconate Inj 1 GM in Sodium Chlor 0.9% Inj 100 ML IV.SIG ONE (18:00)
[2018-06-30 18:24] LABS: Baso % (Auto) 0.1 % (0.0-2.0); Eos % (Auto) 0.2 % (0.0-4.0); Hematocrit 41.3 % (39.0-51.0); Hemoglobin 14.1 gm/dL (13.0-17.0); Lymph # (Auto) 0.3 th/mm3 (1.0-4.8); Lymph % (Auto) 2.1 % (9.0-44.0); Mean Corpuscular HGB Conc 34.3 % (32.0-36.0); Mean Corpuscular Hemoglobin 32.8 pg (27.0-34.0); Mean Corpuscular Volume 95.6 fL (80.0-100.0); Mean Platelet Volume 9.1 fL (7.0-11.0); Mono # (Auto) 0.8 th/mm3 (0.0-0.9); Mono % (Auto) 4.9 % (0.0-8.0); Neut # (Auto) 14.6 th/mm3 (1.8-7.7); Neut % (Auto) 92.7 % (16.0-70.0); Platelet Count 77 th/mm3 (150-450); Red Blood Count 4.32 mil/mm3 (4.50-5.90); Red Cell Distribution Width 16.4 % (11.6-17.2); White Blood Count 15.8 th/mm3 (4.0-11.0)
[2018-06-30 19:06] LABS: Hepatitits B Surface Antigen Nonreactive (Nonreactive)
[2018-06-30] MEDS: Sodium Bicarbonate 8.4% Inj 150 MEQ in Dextrose 5% in Water Inj 850 ML IV.CONT SCH ×2 (19:12)
[2018-06-30 19:17] LABS: Lymphocytes 2 % (9-44); Metamyelocytes 14 % (0-1); Monocytes 3 % (0-8)
[2018-06-30 19:20] LABS: Platelet Morphology Normal (Normal); Toxic Vacuolation Present
[2018-06-30 19:41] LABS: Hepatitis A IgM Antibody Nonreactive (Nonreactive)
[2018-06-30] MEDS: Morphine Sulfate Inj 2 MG/ML Vial IV.PUSH PRN (20:15)
[2018-06-30] MEDS: Piperacil/Tazo 2.25 GM Premix 50 ML IV.SIG SCH (20:23)
[2018-06-30 21:26] LABS: Carbon Dioxide 21.8 meq/L (21.0-32.0); Potassium 4.1 meq/L (3.5-5.1)
[2018-06-30 21:41] LABS: Albumin 2.6 g/dL (3.4-5.0); Calcium-Albumin Corrected 8.1 mg/dL (8.5-10.1)
[2018-06-30] MEDS: Hydrocortisone Sod Succinate 100 MG Vial IV.PUSH SCH (22:23)
[2018-06-30 22:50] LABS: Bilirubin,Urine Negative (Negative); Clarity,Urine Clear (Clear); Color,Urine Yellow (Yellw/Straw); Glucose,Urine (UA) Negative (Negative); Leukocyte Esterase,Urine Negative (Negative); Mucus,Urine Few /lpf (Occasional); Nitrite,Urine Negative (Negative); Specific Gravity,Urine 1.008 (1.002-1.035); Squamous Epithelial Cell,Urine 1 /hpf (0-5)
[2018-06-30] MEDS ORDERED: Sod Chloride 0.9% Inj 2,000 ML IV.SIG ONE (23:00)
[2018-07-01] MEDS: Heparin - SQ 10,000 UNITS/ML Vial SQ SCH (00:18)
[2018-07-01] MEDS: Morphine Sulfate Inj 2 MG/ML Vial IV.PUSH PRN ×6 (00:19→20:26)
[2018-07-01] MEDS: Insulin NovoLIN Regular Correctional Sugar Inj SQ SCH ×10 (01:45→20:40)
[2018-07-01 02:26] LABS: Baso % (Auto) 0.1 % (0.0-2.0); Eos % (Auto) 0.2 % (0.0-4.0); Hematocrit 41.3 % (39.0-51.0); Hemoglobin 13.8 gm/dL (13.0-17.0); Lymph # (Auto) 0.3 th/mm3 (1.0-4.8); Lymph % (Auto) 2.1 % (9.0-44.0); Mean Corpuscular HGB Conc 33.4 % (32.0-36.0); Mean Corpuscular Hemoglobin 32.1 pg (27.0-34.0); Mean Corpuscular Volume 96.1 fL (80.0-100.0); Mean Platelet Volume 8.6 fL (7.0-11.0); Mono # (Auto) 0.3 th/mm3 (0.0-0.9); Mono % (Auto) 2.5 % (0.0-8.0); Neut # (Auto) 12.4 th/mm3 (1.8-7.7); Neut % (Auto) 95.1 % (16.0-70.0); Platelet Count 70 th/mm3 (150-450); Red Cell Distribution Width 16.3 % (11.6-17.2)
[2018-07-01] MEDS: Piperacil/Tazo 2.25 GM Premix 50 ML IV.SIG SCH ×3 (03:03→20:26)
[2018-07-01 03:18] LABS: Albumin 2.7 g/dL (3.4-5.0); Calcium 6.7 mg/dL (8.5-10.1); Carbon Dioxide 27.4 meq/L (21.0-32.0); Magnesium 1.9 mg/dL (1.5-2.5); Potassium 3.7 meq/L (3.5-5.1); Total Protein 6.6 g/dL (6.4-8.2)
[2018-07-01 03:23] LABS: Lymphocytes 4 % (9-44); Metamyelocytes 10 % (0-1); Monocytes 3 % (0-8)
[2018-07-01 03:26] LABS: Dohle Bodies Present; Platelet Morphology Normal (Normal); Toxic Vacuolation Present
[2018-07-01] MEDS ORDERED: Chlorhexidine Gluconate 2% 1 Pack (2 Cloths) TOPICAL PRN (04:00)
[2018-07-01 04:08] LABS: Creatine Kinase MB 340.9 ng/mL (0.5-3.6)
[2018-07-01] MEDS: Hydrocortisone Sod Succinate 100 MG Vial IV.PUSH SCH ×3 (05:21→23:26)
[2018-07-01] MEDS: Chlorhexidine Gluconate 2% 1 Pack (2 Cloths) TOPICAL SCH (05:22)
[2018-07-01] MEDS: Sodium Bicarbonate 8.4% Inj 150 MEQ in Dextrose 5% in Water Inj 850 ML IV.CONT SCH ×8 (05:22→20:41)
--- NOTE | 2018-07-01 07:22 | P.PNCC ---
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 He presented to [facility] ED with altered mental status. The patient lives in a motel and when his mom tried to contact him and he did not answer the phone, she subsequently called EMS and on arrival, they found him confused, mumbling, he was hypoglycemic with a blood sugar in the 40s. The patient was given dextrose which improved his blood sugar to the 80s. On arrival to the ER , he was tachycardic, hypotensive, with a systolic blood pressure in the 90s. His urine drug screen was positive for opiates and amphetamines. His laboratory data significant for renal failure with a creatinine 3.87, with lactic acidosis, lactic acid level 4.5. The patient also had elevated liver enzymes with AST 598, ALT 215, total bilirubin 0.6. There is no evidence of any fever; however, he had leukocytosis with a WBC of 15.1. Due to altered mental status, a CT scan of the brain was obtained which showed no acute intracranial findings. A chest x-ray in the ED showed minimal left basilar airspace disease. In the ED, he was given 2 liters of crystalloids, vancomycin and Zosyn. The patient was hospitalized in [facility] back in October for Boerhaave syndrome and underwent a spit fistula esophagectomy. His hospital course was complicated by respiratory failure requiring intubation , septic shock, acute renal failure, rhabdomyolysis, on hemodialysis for 3 weeks. According to the patient's mother who is a nurse, he also had seizure type activity about 10 days ago and he initially went to [facility]; however, she transferred him to [facility] where he was discharged approximately 1 week ago. The patient has a J-tube in place. He is currently on 3 liter oxygen with saturations 97%. Current blood pressure 117/64 , pulse IV hydration. 07/01 No evenst overnight. Awake and alert. Afebrile. Renal function is improving with Cr: 2.04 from from 3.87 on arrival. On bicarb drip. Objective Vital Signs / I&O: Vital Signs 06/30/18 09:52 06/30/18 09:57 06/30/18 10:32 Temperature 97.8 F Pulse Rate 127 H 123 H Respiratory Rate 14 18 Blood Pressure 116/51 L 116/51 L Pulse Oximetry 100 99 99 06/30/18 10:52 06/30/18 10:59 06/30/18 11:50 Temperature Pulse Rate 125 H 124 H 125 H Respiratory Rate 22 18 18 Blood Pressure 93/50 L 103/54 L 117/64 Pulse Oximetry 100 100 97 06/30/18 13:45 06/30/18 15:00 06/30/18 15:54 Temperature 98.0 F Pulse Rate 124 H 129 H Respiratory Rate 14 18 Blood Pressure 101/57 L 110/62 Pulse Oximetry 93 L 100 99 06/30/18 16:00 06/30/18 16:07 06/30/18 16:30 Temperature 98.0 F Pulse Rate 126 H 126 H 128 H Respiratory Rate 16 17 17 Blood Pressure 113/62 112/61 Pulse Oximetry 99 100 100 06/30/18 17:00 06/30/18 17:30 06/30/18 18:00 Temperature 98.5 F Pulse Rate 130 H 129 H 129 H Respiratory Rate 17 14 14 Blood Pressure 116/64 116/61 124/69 Pulse Oximetry 100 100 100 06/30/18 18:30 06/30/18 19:00 06/30/18 19:30 Temperature Pulse Rate 131 H 129 H 127 H Respiratory Rate 20 16 18 Blood Pressure 123/65 114/64 120/66 Pulse Oximetry 100 99 100 06/30/18 20:00 06/30/18 20:26 06/30/18 20:30 Temperature 99.2 F Pulse Rate 130 H 127 H 129 H Respiratory Rate 19 16 17 Blood Pressure 121/67 114/54 L 111/53 L Pulse Oximetry 100 100 100 06/30/18 21:00 06/30/18 21:30 06/30/18 22:00 Temperature Pulse Rate 129 H 128 H 132 H Respiratory Rate 15 16 18 Blood Pressure 113/57 L 114/64 115/60 Pulse Oximetry 100 94 L 100 06/30/18 22:30 06/30/18 22:36 06/30/18 23:00 Temperature Pulse Rate 130 H 130 H 128 H Respiratory Rate 17 29 H 18 Blood Pressure 106/59 L 124/79 Pulse Oximetry 100 99 100 07/01/18 00:00 07/01/18 01:00 07/01/18 02:00 Temperature 97.6 F Pulse Rate 126 H 122 H 123 H Respiratory Rate 19 14 14 Blood Pressure Pulse Oximetry 100 100 100 07/01/18 03:00 07/01/18 04:00 07/01/18 05:00 Temperature 98.4 F Pulse Rate 119 H 118 H 117 H Respiratory Rate 27 H 24 15 Blood Pressure Pulse Oximetry 100 100 100 07/01/18 06:00 Temperature Pulse Rate 115 H Respiratory Rate 29 H Blood Pressure Pulse Oximetry 100 Intake & Output 06/30/18 07/01/18 07/01/18 18:59 06:59 18:59 Intake Total 2005 1701 / 1701 Output Total 1450 / 1450 Balance 2005 251 / 251 Weight 66.9 kg 71.3 kg Intake: IV 2005 1260 / 1260 Sodium Bicarbonate 8.4% Inj 150 1000 / 1000 MEQ In D5W Inj 850 ML @ 150 mls/hr IV.CONT .Q6H40M [facility] Rx#: [id number] SoluCORTEF Inj 200 MG In NS Inj 6 / 6 200 ML @ 8.333 mls/hr IV.SIG ONCE ONE Rx#:[id number] Zosyn 2.25 GM Premix 50 ML @ 50 / 50 100 mls/hr IV.SIG Q8H [facility] Rx#: [id number] NS Inj 1,000 ML @ 1000 mls/hr 2000 / 2000 IV.SIG BOLUS [facility] Rx#:[id number] Keppra Inj 500 MG In NS Inj 100 210 / 210 ML @ 400 mls/hr IV.SIG Q12H [facility] Rx#:[id number] Tube Feeding 381 / 381 Tube Irrigant 60 / 60 Output: Urine 1450 / 1450 Other: # Voids 1 Date of Last Bowel Movement 06/29/18 # Bowel Movements 0 Weight On Admission 66.9 kg Result Diagrams: 07/01/18 02:09 07/01/18 02:09 Other Results: Laboratory Results - last 12 hr 06/30/18 06/30/18 06/30/18 14:30 17:08 17:08 WBC RBC Hgb Hct MCV MCH MCHC RDW Plt Count MPV Prelim Diff (Auto) Neut % (Auto) Lymph % (Auto) [place] % (Auto) Eos % (Auto) Baso % (Auto) Neut # (Auto) Lymph # (Auto) [place] # (Auto) Eos # (Auto) Baso # (Auto) WBC Differential Manual diff final Seg Neuts % (Manual) 44 Band Neuts % (Manual) 37 H Lymphocytes % (Manual) 2 L Monocytes % (Manual) 3 Metamyelocytes % (Man) 14 H Abs Neuts (Manual) 15.0 H Differential Comment Toxic Vacuolation Present H Dohle Bodies Platelet Estimate Low L Platelet Morphology Normal Sodium Potassium Chloride Carbon Dioxide Anion Gap BUN Creatinine Estimated GFR POC Glucose Random Glucose Lactic Acid Calcium Calcium Adj for Albumin Phosphorus Magnesium Total Bilirubin AST ALT Alkaline Phosphatase Total Creatine Kinase CK-MB (CK-2) CK-MB (CK-2) % Total Protein Albumin Urine Color Urine Clarity Urine pH Ur Specific [place] Urine Protein Urine Glucose (UA) Urine Ketones Urine Occult Blood Urine Nitrate Urine Bilirubin Urine Urobilinogen Ur Leukocyte Esterase Urine RBC Urine WBC Ur Squamous Epith Cells Urine Mucus Micro UA Comment Ur Microscopic Review Urine Culture Comments Nasal Screen MRSA (PCR) Mrsa detected Hepatitis A IgM Ab Nonreactive Hep B Core IgM Ab Nonreactive Hep C IgG Ab Reactive H 06/30/18 06/30/18 06/30/18 19:30 20:48 22:25 WBC RBC Hgb Hct MCV MCH MCHC RDW Plt Count MPV Prelim Diff (Auto) Neut % (Auto) Lymph % (Auto) [place] % (Auto) Eos % (Auto) Baso % (Auto) Neut # (Auto) Lymph # (Auto) [place] # (Auto) Eos # (Auto) Baso # (Auto) WBC Differential Seg Neuts % (Manual) Band Neuts % (Manual) Lymphocytes % (Manual) Monocytes % (Manual) Metamyelocytes % (Man) Abs Neuts (Manual) Differential Comment Toxic Vacuolation Dohle Bodies Platelet Estimate Platelet Morphology Sodium 136 Potassium 4.1 D Chloride 103 Carbon Dioxide 21.8 Anion Gap 11 BUN 39 H Creatinine 2.49 H Estimated GFR 30 L POC Glucose 90 Random Glucose 94 Lactic Acid Calcium 7.0 L* Calcium Adj for Albumin 8.1 L Phosphorus Magnesium Total Bilirubin AST ALT Alkaline Phosphatase Total Creatine Kinase CK-MB (CK-2) CK-MB (CK-2) % Total Protein Albumin 2.6 L Urine Color Yellow Urine Clarity Clear Urine pH 8.0 Ur Specific [place] 1.008 Urine Protein 100 H Urine Glucose (UA) Negative Urine Ketones Negative Urine Occult Blood Large H Urine Nitrate Negative Urine Bilirubin Negative Urine Urobilinogen Less than 2 Ur Leukocyte Esterase Negative Urine RBC 2 Urine WBC 1 Ur Squamous Epith Cells 1 Urine Mucus Few H Micro UA Comment Culture not ind Ur Microscopic Review Not Reportable Urine Culture Comments Culture not ind Nasal Screen MRSA (PCR) Hepatitis A IgM Ab Hep B Core IgM Ab Hep C IgG Ab 06/30/18 07/01/18 07/01/18 22:56 00:29 02:09 WBC 13.0 H RBC 4.30 L Hgb 13.8 Hct 41.3 MCV 96.1 MCH 32.1 MCHC 33.4 RDW 16.3 Plt Count 70 L MPV 8.6 Prelim Diff (Auto) Slide review pending Neut % (Auto) 95.1 H Lymph % (Auto) 2.1 L [place] % (Auto) 2.5 Eos % (Auto) 0.2 Baso % (Auto) 0.1 Neut # (Auto) 12.4 H Lymph # (Auto) 0.3 L [place] # (Auto) 0.3 Eos # (Auto) 0.0 Baso # (Auto) 0.0 WBC Differential Manual diff final Seg Neuts % (Manual) 58 Band Neuts % (Manual) 25 H Lymphocytes % (Manual) 4 L Monocytes % (Manual) 3 Metamyelocytes % (Man) 10 H Abs Neuts (Manual) 12.1 H Differential Comment . Toxic Vacuolation Present H Dohle Bodies Present H Platelet Estimate Low L Platelet Morphology Normal Sodium Potassium Chloride Carbon Dioxide Anion Gap BUN Creatinine Estimated GFR POC Glucose 84 Random Glucose Lactic Acid 4.3 H* Calcium Calcium Adj for Albumin Phosphorus Magnesium Total Bilirubin AST ALT Alkaline Phosphatase Total Creatine Kinase CK-MB (CK-2) CK-MB (CK-2) % Total Protein Albumin Urine Color Urine Clarity Urine pH Ur Specific [place] Urine Protein Urine Glucose (UA) Urine Ketones Urine Occult Blood Urine Nitrate Urine Bilirubin Urine Urobilinogen Ur Leukocyte Esterase Urine RBC Urine WBC Ur Squamous Epith Cells Urine Mucus Micro UA Comment Ur Microscopic Review Urine Culture Comments Nasal Screen MRSA (PCR) Hepatitis A IgM Ab Hep B Core IgM Ab Hep C IgG Ab 07/01/18 07/01/18 07/01/18 02:09 02:09 02:11 WBC RBC Hgb Hct MCV MCH MCHC RDW Plt Count MPV Prelim Diff (Auto) Neut % (Auto) Lymph % (Auto) [place] % (Auto) Eos % (Auto) Baso % (Auto) Neut # (Auto) Lymph # (Auto) [place] # (Auto) Eos # (Auto) Baso # (Auto) WBC Differential Seg Neuts % (Manual) Band Neuts % (Manual) Lymphocytes % (Manual) Monocytes % (Manual) Metamyelocytes % (Man) Abs Neuts (Manual) Differential Comment Toxic Vacuolation Dohle Bodies Platelet Estimate Platelet Morphology Sodium 140 Potassium 3.7 Chloride 103 Carbon Dioxide 27.4 Anion Gap 10 BUN 37 H Creatinine 2.04 H Estimated GFR 38 L POC Glucose 77 Random Glucose 103 Lactic Acid 1.7 Calcium 6.7 L* Calcium Adj for Albumin 7.7 L Phosphorus 4.0 Magnesium 1.9 Total Bilirubin 0.6 AST 1092 H ALT 302 H Alkaline Phosphatase 161 H Total Creatine Kinase 01101 H CK-MB (CK-2) 340.9 H CK-MB (CK-2) % 1.0 Total Protein 6.6 D Albumin 2.7 L Urine Color Urine Clarity Urine pH Ur Specific [place] Urine Protein Urine Glucose (UA) Urine Ketones Urine Occult Blood Urine Nitrate Urine Bilirubin Urine Urobilinogen Ur Leukocyte Esterase Urine RBC Urine WBC Ur Squamous Epith Cells Urine Mucus Micro UA Comment Ur Microscopic Review Urine Culture Comments Nasal Screen MRSA (PCR) Hepatitis A IgM Ab Hep B Core IgM Ab Hep C IgG Ab 07/01/18 05:47 WBC RBC Hgb Hct MCV MCH MCHC RDW Plt Count MPV Prelim Diff (Auto) Neut % (Auto) Lymph % (Auto) [place] % (Auto) Eos % (Auto) Baso % (Auto) Neut # (Auto) Lymph # (Auto) [place] # (Auto) Eos # (Auto) Baso # (Auto) WBC Differential Seg Neuts % (Manual) Band Neuts % (Manual) Lymphocytes % (Manual) Monocytes % (Manual) Metamyelocytes % (Man) Abs Neuts (Manual) Differential Comment Toxic Vacuolation Dohle Bodies Platelet Estimate Platelet Morphology Sodium Potassium Chloride Carbon Dioxide Anion Gap BUN Creatinine Estimated GFR POC Glucose 77 Random Glucose Lactic Acid Calcium Calcium Adj for Albumin Phosphorus Magnesium Total Bilirubin AST ALT Alkaline Phosphatase Total Creatine Kinase CK-MB (CK-2) CK-MB (CK-2) % Total Protein Albumin Urine Color Urine Clarity Urine pH Ur Specific [place] Urine Protein Urine Glucose (UA) Urine Ketones Urine Occult Blood Urine Nitrate Urine Bilirubin Urine Urobilinogen Ur Leukocyte Esterase Urine RBC Urine WBC Ur Squamous Epith Cells Urine Mucus Micro UA Comment Ur Microscopic Review Urine Culture Comments Nasal Screen MRSA (PCR) Hepatitis A IgM Ab Hep B Core IgM Ab Hep C IgG Ab Imaging: Abdomen Ultrasound 06/30/18 00:00 CONCLUSION: 1. The kidneys demonstrate increased echogenicity concerning for medical renal disease. 2. Hepatosplenomegaly. 3. Right pleural effusion. Chest X-Ray 06/30/18 09:59 CONCLUSION: Interval elevation of the left hemidiaphragm compared to previous study in 2017 Minimal left basilar airspace disease Otherwise stable chest. Head CT 06/30/18 09:59 CONCLUSION: 1. Negative CT Head non contrast. 2. Stable exam without evidence of acute infarct, hemorrhage, mass or edema. . Objective Remarks: GENERAL: Patient is 32yo lying in be din NAD SKIN: Warm and dry. HEAD: Normocephalic. EYES: No scleral icterus. No injection or drainage. NECK: Supple, trachea midline. No JVD or lymphadenopathy. CARDIOVASCULAR: Tachycardic without murmurs, gallops, or rubs. RESPIRATORY: Breath sounds equal bilaterally. No accessory muscle use. GASTROINTESTINAL: Abdomen soft, non-tender, nondistended. +J-tube in place MUSCULOSKELETAL: No cyanosis, or edema. Neuro: Awake and alert. Assessment and Plan - Assessment and Plan Plan: 1. Respiratory insufficiency 2. Altered mental status 3. Status post hypoglycemic episode. 4. Adrenal insufficiency. 5. Acute renal failure, Rhabdo 6. Lactic acidemia. 7. Elevated liver enzymes. 8. Leukocytosis with bandemia. 9. Seizure disorder. 10. Left basilar airspace disease. 11. History of pituitary dysfunction. 12. History of Boerhaave syndrome with spit fistula esophagectomy. 13. Previous J-tube placement. 14. Pacemaker secondary to bradycardia. 15. Hep C Plan Neuro: Awake and alert. Monitor neuro status . CT brain showed no intracranial findings. UDS: amphetamines and opiates. Continue Keppra and gabapentin. Ativan 1 mg IV every 4hours p.r.n. for seizures. Neuro consulted- Dr. Jones, for EEG today. Increase morphine 2mg Q4PRN pain Pulm: Continue with oxygen and maintain sats >92%. Bronchodilators. CXR: Minimal left basilar airspace disease CV: Monitor HR and BP and maintain MAP> 65 mmHg. Lactic acid cleared 1.7 from 4.5 on arrival. : Monitor renal function, I's and O's, and avoid nephrotoxins. Renal function is improving with Cr: 2.04 from 3.87. Renal is following. Continue bicarb drip ( D5W+3amps bicarb @150ml/hr) monitor CK's. US abdomen: medical renal disease. Hepatosplenomegaly GI: Monitor LFT's Hepatitis profile: Hep C Ig ab on Protonix 40 mg IV daily for GI prophylaxis. Continue tube feeds via J-tube change to [place] with goal rate 50ml/hr per nut. recommendations. ID: Given vancomycin and Zosyn in the ER. Continue Zosyn and monitor for signs of infection. Follow up on blood culture, check sputum cx. Endo: On hydrocortisone 100 mg IV every 8 hours . Accu-Chek every 2 hours for now. TSH: 0.289 Heme: Monitor CBC and check coags. GI prophylaxis- Protonix 40 mg daily DVT prophylaxis- SCD, Level 3
[2018-07-01] MEDS: Gabapentin 300 MG Capsule PO SCH ×3 (08:10→17:48)
[2018-07-01] MEDS: Pantoprazole Inj 40 MG Vial IV.PUSH SCH (08:10)
--- NOTE | 2018-07-01 11:06 | P.PNNP ---
Subjective Interval history: Patient awake and alert Physical Exam Vital signs: Vital Signs 06/30/18 11:50 06/30/18 13:45 06/30/18 15:00 Temperature 98.0 F Pulse Rate 125 H 124 H 129 H Respiratory Rate 18 14 18 Blood Pressure 117/64 101/57 L 110/62 Pulse Oximetry 97 93 L 100 06/30/18 15:54 06/30/18 16:00 06/30/18 16:07 Temperature 98.0 F Pulse Rate 126 H 126 H Respiratory Rate 16 17 Blood Pressure 113/62 Pulse Oximetry 99 99 100 06/30/18 16:30 06/30/18 17:00 06/30/18 17:30 Temperature Pulse Rate 128 H 130 H 129 H Respiratory Rate 17 17 14 Blood Pressure 112/61 116/64 116/61 Pulse Oximetry 100 100 100 06/30/18 18:00 06/30/18 18:30 06/30/18 19:00 Temperature 98.5 F Pulse Rate 129 H 131 H 129 H Respiratory Rate 14 20 16 Blood Pressure 124/69 123/65 114/64 Pulse Oximetry 100 100 99 06/30/18 19:30 06/30/18 20:00 06/30/18 20:26 Temperature 99.2 F Pulse Rate 127 H 130 H 127 H Respiratory Rate 18 19 16 Blood Pressure 120/66 121/67 114/54 L Pulse Oximetry 100 100 100 06/30/18 20:30 06/30/18 21:00 06/30/18 21:30 Temperature Pulse Rate 129 H 129 H 128 H Respiratory Rate 17 15 16 Blood Pressure 111/53 L 113/57 L 114/64 Pulse Oximetry 100 100 94 L 06/30/18 22:00 06/30/18 22:30 06/30/18 22:36 Temperature Pulse Rate 132 H 130 H 130 H Respiratory Rate 18 17 29 H Blood Pressure 115/60 106/59 L 124/79 Pulse Oximetry 100 100 99 06/30/18 23:00 07/01/18 00:00 07/01/18 01:00 Temperature 97.6 F Pulse Rate 128 H 126 H 122 H Respiratory Rate 18 19 14 Blood Pressure Pulse Oximetry 100 100 100 07/01/18 02:00 07/01/18 03:00 07/01/18 04:00 Temperature 98.4 F Pulse Rate 123 H 119 H 118 H Respiratory Rate 14 27 H 24 Blood Pressure Pulse Oximetry 100 100 100 07/01/18 05:00 07/01/18 06:00 07/01/18 07:31 Temperature Pulse Rate 117 H 115 H 110 H Respiratory Rate 15 29 H 20 Blood Pressure Pulse Oximetry 100 100 96 Intake & Output 06/30/18 07/01/18 07/01/18 18:59 06:59 18:59 Intake Total 2005 1701 / 1701 Output Total 1450 / 1450 Balance 2005 251 / 251 Weight 66.9 kg 71.3 kg Intake: IV 2005 1260 / 1260 Sodium Bicarbonate 8.4% Inj 150 1000 / 1000 MEQ In D5W Inj 850 ML @ 150 mls/hr IV.CONT .Q6H40M [facility] Rx#: [id number] SoluCORTEF Inj 200 MG In NS Inj 200 ML @ 8.333 mls/hr IV.SIG ONCE ONE Rx#:[id number] Zosyn 2.25 GM Premix 50 ML @ 50 / 50 100 mls/hr IV.SIG Q8H [facility] Rx#: [id number] NS Inj 1,000 ML @ 1000 mls/hr 1999 / 1999 IV.SIG BOLUS [facility] Rx#:[id number] Keppra Inj 500 MG In NS Inj 100 210 / 210 ML @ 400 mls/hr IV.SIG Q12H [facility] Rx#:[id number] Tube Feeding 381 / 381 Tube Irrigant 60 / 60 Output: Urine 1450 / 1450 Other: # Voids 1 Date of Last Bowel Movement 06/29/18 # Bowel Movements 0 Weight On Admission 66.9 kg Narrative: Physical exam GENERAL: MAL-nourished, well-developed patient. SKIN: Warm and dry. HEAD: Normocephalic. EYES: No scleral icterus. No injection or drainage. NECK: Supple, there is a bag on the left side of the neck CARDIOVASCULAR: Tachycardia RESPIRATORY: Breath sounds equal bilaterally. No accessory muscle use. GASTROINTESTINAL: Abdomen soft, non-tender, nondistended. 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
--- NOTE | 2018-07-01 15:54 | MB ---
cc: Andrea Jones MD, PhD DATE: 07/01/2018 REASON FOR CONSULTATION: Mental status change, possible seizures. HISTORY OF PRESENT ILLNESS: Mr. Daniel is a 32-year-old man who has a history of Boerhaave syndrome. He underwent esophagectomy. He has a history of seizure disorder, pituitary dysfunction as well. He takes chronic opiate pain medication for severe chronic pain. Apparently was found with mental status change with hypoglycemia, blood sugars in the 40s and very confused. He was given dextrose. He is hypotensive. He has a systolic pressure in the 90s. He is unsure whether he had a seizure, although he has had seizures in the past. He feels he is weaker on the left. He states he has a baseline history of left-sided weakness, but this is worse. CURRENT MEDICATIONS: 1. Albuterol nebulizer. 2. Dulcolax. 3. Gabapentin 200 mg t.i.d. 4. Glucagon p.r.n. 5. Lactulose p.r.n. 6. Piperacillin 7. Senokot. 8. Vancomycin. 9. Keppra. NEUROLOGICAL EXAMINATION: VITAL SIGNS: Pulse is 115, respirations 29. HIGHER CORTICAL FUNCTION: He is alert, oriented. Speech is normal. Cranial nerves intact. Motor exam: He is weak in the left side roughly 2/5 left upper extremity, 3/5 left lower extremity. Had normal strength on the right. He states his weakness is much greater than normal. RADIOGRAPHIC STUDIES: A CT of the brain, no acute change. LABORATORY DATA: His white count is 13,000, hemoglobin 13.8, hematocrit 41%, platelet count is 70,000. His sodium is 140, his potassium is 3.7, glucose. 77 IMPRESSION: Alteration in mental status, possibly due to the hypoglycemia, possible seizure. He is weaker on the left side. This could be a postictal Oziel's paralysis; however, I would like to get an MRI of the brain. He does have a pacemaker. He states that he is able to have an MRI of the brain as long as [employer] is consulted to reset his pacemaker. We will also obtain an electroencephalogram. We will resume his Keppra as well. Andrea Jones MD, PhD IRENA/koko , 03:00 PM , 03:08 PM
--- NOTE | 2018-07-01 17:52 | P.PNWCN ---
Wound Care Nurse Consult Description: Received ostomy management consult for esophageal ostomy to please manage, patient has Boerhaave syndrome from Doctor London Communicated with: JEAN CLAUDE ZAVALA and Doctor Callahan Recommendation: Please change one piece pouching system to esophageal fistula every 3 to 5 days or as needed if leaking. Use fidelina seal lining fistula opening before applying pouch. Wound/Pressure Injury - Additional Information Patient seen on [facility] for ostomy management of esophageal ostomy. 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 Fistula opening is 100% pink and measures ~ 1cm x ~2cm. Fistula is draining clear mucous. Kalina fistula skin is macerated. Encrusted skin around fistula with stoma powder and cavilon skin barrier film. Lined fistula with fidelina seal for added leak protection and applied one piece ostomy appliance with opaque giron colored pouch, will see if anymore one pieces with transparent pouch are available from [facility] Patient tolerated pouch change well.
[2018-07-02] MEDS: Morphine Sulfate Inj 2 MG/ML Vial IV.PUSH PRN ×6 (01:25→23:44)
[2018-07-02] MEDS: Insulin NovoLIN Regular Correctional Sugar Inj SQ SCH ×6 (01:26→21:15)
[2018-07-02] MEDS: Piperacil/Tazo 2.25 GM Premix 50 ML IV.SIG SCH ×3 (04:18→19:45)
[2018-07-02] MEDS: Sodium Bicarbonate 8.4% Inj 150 MEQ in Dextrose 5% in Water Inj 850 ML IV.CONT SCH ×2 (04:21)
[2018-07-02] MEDS: Chlorhexidine Gluconate 2% 1 Pack (2 Cloths) TOPICAL SCH (04:21)
[2018-07-02 05:30] LABS: Baso % (Auto) 0.1 % (0.0-2.0); Eos % (Auto) 0.1 % (0.0-4.0); Hematocrit 31.1 % (39.0-51.0); Hemoglobin 11.1 gm/dL (13.0-17.0); Lymph # (Auto) 0.3 th/mm3 (1.0-4.8); Lymph % (Auto) 4.2 % (9.0-44.0); Mean Corpuscular HGB Conc 35.6 % (32.0-36.0); Mean Corpuscular Hemoglobin 32.9 pg (27.0-34.0); Mean Corpuscular Volume 92.4 fL (80.0-100.0); Mean Platelet Volume 8.7 fL (7.0-11.0); Mono # (Auto) 0.3 th/mm3 (0.0-0.9); Mono % (Auto) 4.9 % (0.0-8.0); Neut # (Auto) 6.3 th/mm3 (1.8-7.7); Neut % (Auto) 90.7 % (16.0-70.0); Platelet Count 56 th/mm3 (150-450); Red Blood Count 3.36 mil/mm3 (4.50-5.90); Red Cell Distribution Width 15.8 % (11.6-17.2); White Blood Count 6.9 th/mm3 (4.0-11.0)
[2018-07-02] MEDS: Hydrocortisone Sod Succinate 100 MG Vial IV.PUSH SCH ×3 (05:35→21:39)
[2018-07-02 06:30] LABS: Alanine Aminotransferase 276 U/L (12-78); Albumin 2.1 g/dL (3.4-5.0); Alkaline Phosphatase 122 U/L (45-117); Anion Gap 7 meq/L (5-15); Aspartate Aminotransferase 723 U/L (15-37); Blood Urea Nitrogen 25 mg/dL (7-18); Chloride 98 meq/L (98-107); Creatine Kinase 11764 U/L (39-308); Glomerular Filtration Rate Greater Than 89 mL/min (>89); Glucose,Random 138 mg/dL (74-106); Magnesium 1.9 mg/dL (1.5-2.5); Phosphorus 1.9 mg/dL (2.5-4.9); Sodium 142 meq/L (136-145); Total Protein 5.4 g/dL (6.4-8.2)
[2018-07-02 06:42] LABS: Potassium 2.2 meq/L (3.5-5.1)
[2018-07-02 07:14] LABS: CKMB Percent 0.3 % (0.0-4.0); Creatine Kinase MB 30.3 ng/mL (0.5-3.6)
[2018-07-02 07:54] LABS: Lymphocytes 2 % (9-44); Monocytes 5 % (0-8)
[2018-07-02 07:55] LABS: Platelet Morphology Normal (Normal); Toxic Vacuolation Present
[2018-07-02] MEDS ORDERED: Sodium Phosphate Inj 30 MMOL in Sodium Chlor 0.9% Inj 250 ML IV.SIG PRN ×2 (08:09→20:35)
[2018-07-02] MEDS ORDERED: Potassium Phosphate Inj 30 MMOL in Sodium Chlor 0.9% Inj 250 ML IV.SIG PRN ×2 (08:09→20:35)
[2018-07-02] MEDS ORDERED: Potassium Chloride 25 MEQ Effervescent Tablet PO PRN ×2 (08:09→20:35)
[2018-07-02] MEDS ORDERED: Potassium Phosphate 500 MG Soluble Tablet PO PRN ×4 (08:09→20:35)
[2018-07-02] MEDS ORDERED: Potassium Chlor 40 mEq Premix 40 MEQ/100 ML PIGGYBACK IV.SIG PRN ×4 (08:09→20:35)
[2018-07-02] MEDS ORDERED: Magnesium Sulfate Inj 4 GM in Sodium Chlor 0.9% Inj 92 ML IV.SIG PRN ×2 (08:09→20:35)
[2018-07-02] MEDS ORDERED: Magnesium Sulfate Inj 2 GM in Sodium Chlor 0.9% Inj 96 ML IV.SIG PRN ×2 (08:09→20:35)
[2018-07-02] MEDS ORDERED: Magnesium Oxide 400 MG Tablet PO PRN ×2 (08:09→20:35)
--- NOTE | 2018-07-02 08:21 | P.PNCC ---
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 He presented to [facility] ED with altered mental status. The patient lives in a motel and when his mom tried to contact him and he did not answer the phone, she subsequently called EMS and on arrival, they found him confused, mumbling, he was hypoglycemic with a blood sugar in the 40s. The patient was given dextrose which improved his blood sugar to the 80s. On arrival to the ER , he was tachycardic, hypotensive, with a systolic blood pressure in the 90s. His urine drug screen was positive for opiates and amphetamines. His laboratory data significant for renal failure with a creatinine 3.87, with lactic acidosis, lactic acid level 4.5. The patient also had elevated liver enzymes with AST 598, ALT 215, total bilirubin 0.6. There is no evidence of any fever; however, he had leukocytosis with a WBC of 15.1. Due to altered mental status, a CT scan of the brain was obtained which showed no acute intracranial findings. A chest x-ray in the ED showed minimal left basilar airspace disease. In the ED, he was given 2 liters of crystalloids, vancomycin and Zosyn. The patient was hospitalized in [facility] back in October for Boerhaave syndrome and underwent a spit fistula esophagectomy. His hospital course was complicated by respiratory failure requiring intubation , septic shock, acute renal failure, rhabdomyolysis, on hemodialysis for 3 weeks. According to the patient's mother who is a nurse, he also had seizure type activity about 10 days ago and he initially went to [facility]; however, she transferred him to [facility] where he was discharged approximately 1 week ago. The patient has a J-tube in place. He is currently on 3 liter oxygen with saturations 97%. Current blood pressure 117/64 , pulse IV hydration. 07/01 No events overnight. Awake and alert. Afebrile. Renal function is improving with Cr: 2.04 from from 3.87 on arrival. On bicarb drip. 07/02 Patient is awake and alert lying in bed in NAD. Afebrile. Renal function continue to improve Cr: 0.93 from 2.04, CK's trending down. Objective Vital Signs / I&O: Vital Signs 07/01/18 09:00 07/01/18 10:00 07/01/18 10:57 Temperature Pulse Rate 104 H 99 H 100 H Respiratory Rate 16 13 18 Blood Pressure 121/67 Pulse Oximetry 100 100 100 07/01/18 11:00 07/01/18 11:10 07/01/18 11:30 Temperature Pulse Rate 102 H 94 H 101 H Respiratory Rate 16 16 20 Blood Pressure 118/67 130/74 Pulse Oximetry 100 100 07/01/18 12:00 07/01/18 12:30 07/01/18 13:00 Temperature 98.5 F Pulse Rate 105 H 105 H 108 H Respiratory Rate 18 21 15 Blood Pressure 112/71 121/71 122/67 Pulse Oximetry 100 100 100 07/01/18 13:30 07/01/18 14:00 07/01/18 14:30 Temperature Pulse Rate 101 H 95 H 98 H Respiratory Rate 33 H 15 17 Blood Pressure 122/58 L 126/72 124/73 Pulse Oximetry 99 99 99 07/01/18 15:00 07/01/18 15:04 07/01/18 15:30 Temperature Pulse Rate 95 H 98 H 102 H Respiratory Rate 17 16 23 Blood Pressure 126/74 122/60 Pulse Oximetry 99 100 07/01/18 16:00 07/01/18 16:30 07/01/18 17:00 Temperature 98.4 F Pulse Rate 95 H 101 H 95 H Respiratory Rate 18 16 15 Blood Pressure 116/66 125/72 124/65 Pulse Oximetry 78 L 100 100 07/01/18 17:30 07/01/18 18:00 07/01/18 18:30 Temperature Pulse Rate 92 H 98 H 94 H Respiratory Rate 15 11 L 17 Blood Pressure 126/71 115/76 116/67 Pulse Oximetry 98 100 100 07/01/18 19:00 07/01/18 19:07 07/01/18 19:30 Temperature Pulse Rate 96 H 81 102 H Respiratory Rate 23 16 15 Blood Pressure 118/74 123/71 Pulse Oximetry 99 98 97 07/01/18 20:00 07/01/18 20:30 07/01/18 21:00 Temperature 98.4 F Pulse Rate 87 74 85 Respiratory Rate 14 13 14 Blood Pressure 117/70 122/69 123/71 Pulse Oximetry 99 98 99 07/01/18 21:30 07/01/18 22:00 07/01/18 22:30 Temperature Pulse Rate 80 80 68 Respiratory Rate 7 L 14 11 L Blood Pressure 129/62 128/62 118/67 Pulse Oximetry 98 99 100 07/01/18 23:00 07/01/18 23:30 07/02/18 00:00 Temperature 98.6 F Pulse Rate 76 76 75 Respiratory Rate 16 25 H 18 Blood Pressure 114/70 121/69 122/66 Pulse Oximetry 99 100 100 07/02/18 00:30 07/02/18 01:00 07/02/18 01:30 Temperature Pulse Rate 60 71 69 Respiratory Rate 15 15 13 Blood Pressure 106/56 L 115/68 123/77 Pulse Oximetry 99 98 100 07/02/18 02:00 07/02/18 02:30 07/02/18 03:00 Temperature Pulse Rate 60 71 62 Respiratory Rate 16 14 51 H Blood Pressure 118/76 117/69 122/70 Pulse Oximetry 100 99 99 07/02/18 03:30 07/02/18 04:00 07/02/18 04:30 Temperature 98.6 F Pulse Rate 60 60 70 Respiratory Rate 13 13 14 Blood Pressure 113/59 L 107/55 L 126/76 Pulse Oximetry 98 97 99 07/02/18 05:00 07/02/18 05:30 07/02/18 06:00 Temperature Pulse Rate 60 86 67 Respiratory Rate 13 27 H 19 Blood Pressure 115/64 118/68 125/68 Pulse Oximetry 100 100 100 07/02/18 06:30 07/02/18 07:00 07/02/18 07:07 Temperature Pulse Rate 60 73 60 Respiratory Rate 10 L 24 16 Blood Pressure 126/69 136/74 Pulse Oximetry 100 100 100 07/02/18 07:30 Temperature Pulse Rate 61 Respiratory Rate 24 Blood Pressure 112/57 L Pulse Oximetry 100 Intake & Output 07/01/18 07/02/18 07/02/18 18:59 06:59 18:59 Intake Total 1907 / 1907 1815 / 1815 Output Total 700 / 700 900 / 900 Balance 1207 / 1207 915 / 915 Weight 77.5 kg Intake: IV 1255 / 1255 1205 / 1205 Sodium Bicarbonate 8.4% Inj 150 1100 / 1100 1000 / 1000 MEQ In D5W Inj 850 ML @ 150 mls/hr IV.CONT .Q6H40M [facility] Rx#: [id number] Zosyn 2.25 GM Premix 50 ML @ 50 / 50 100 / 100 100 mls/hr IV.SIG Q8H [facility] Rx#: [id number] Keppra Inj 500 MG In NS Inj 100 105 / 105 105 / 105 ML @ 400 mls/hr IV.SIG Q12H [facility] Rx#:[id number] Tube Feeding 532 / 532 550 / 550 Tube Irrigant 120 / 120 60 / 60 Output: Urine 700 / 700 900 / 900 Other: Date of Last Bowel Movement 06/29/18 06/29/18 # Bowel Movements 0 Result Diagrams: 07/02/18 04:53 07/02/18 04:53 Other Results: Laboratory Results - last 12 hr 07/01/18 07/02/18 07/02/18 23:24 04:13 04:53 WBC 6.9 RBC 3.36 L Hgb 11.1 L D Hct 31.1 L MCV 92.4 D MCH 32.9 MCHC 35.6 RDW 15.8 Plt Count 56 L MPV 8.7 Prelim Diff (Auto) Slide review pending Neut % (Auto) 90.7 H Lymph % (Auto) 4.2 L Calhoun % (Auto) 4.9 Eos % (Auto) 0.1 Baso % (Auto) 0.1 Neut # (Auto) 6.3 Lymph # (Auto) 0.3 L Calhoun # (Auto) 0.3 Eos # (Auto) 0.0 Baso # (Auto) 0.0 WBC Differential Manual diff final Seg Neuts % (Manual) 83 H Band Neuts % (Manual) 10 H Lymphocytes % (Manual) 2 L Monocytes % (Manual) 5 Abs Neuts (Manual) 6.4 Differential Comment . Toxic Vacuolation Present H Platelet Estimate Low L Platelet Morphology Normal Sodium Potassium Chloride Carbon Dioxide Anion Gap BUN Creatinine Estimated GFR POC Glucose 166 H 179 H Random Glucose Calcium Calcium Adj for Albumin Phosphorus Magnesium Total Bilirubin AST ALT Alkaline Phosphatase Total Creatine Kinase CK-MB (CK-2) CK-MB (CK-2) % Total Protein Albumin 07/02/18 04:53 WBC RBC Hgb Hct MCV MCH MCHC RDW Plt Count MPV Prelim Diff (Auto) Neut % (Auto) Lymph % (Auto) Calhoun % (Auto) Eos % (Auto) Baso % (Auto) Neut # (Auto) Lymph # (Auto) Calhoun # (Auto) Eos # (Auto) Baso # (Auto) WBC Differential Seg Neuts % (Manual) Band Neuts % (Manual) Lymphocytes % (Manual) Monocytes % (Manual) Abs Neuts (Manual) Differential Comment Toxic Vacuolation Platelet Estimate Platelet Morphology Sodium 142 Potassium 2.2 L* D Chloride 98 Carbon Dioxide 37.0 H D Anion Gap 7 BUN 25 H Creatinine 0.93 Estimated GFR Greater than 89 POC Glucose Random Glucose 138 H Calcium 7.0 L* Calcium Adj for Albumin 8.5 D Phosphorus 1.9 L D Magnesium 1.9 Total Bilirubin 0.3 AST 723 H ALT 276 H Alkaline Phosphatase 122 H Total Creatine Kinase 97930 H CK-MB (CK-2) 30.3 H CK-MB (CK-2) % 0.3 Total Protein 5.4 L D Albumin 2.1 L D Imaging: Abdomen Ultrasound 06/30/18 00:00 CONCLUSION: 1. The kidneys demonstrate increased echogenicity concerning for medical renal disease. 2. Hepatosplenomegaly. 3. Right pleural effusion. Chest X-Ray 06/30/18 09:59 CONCLUSION: Interval elevation of the left hemidiaphragm compared to previous study in 2017 Minimal left basilar airspace disease Otherwise stable chest. Head CT 06/30/18 09:59 CONCLUSION: 1. Negative CT Head non contrast. 2. Stable exam without evidence of acute infarct, hemorrhage, mass or edema. . Objective Remarks: GENERAL: Patient is 32yo lying in be din NAD SKIN: Warm and dry. HEAD: Normocephalic. EYES: No scleral icterus. No injection or drainage. NECK: Supple, trachea midline. No JVD or lymphadenopathy. CARDIOVASCULAR: Tachycardic without murmurs, gallops, or rubs. RESPIRATORY: Breath sounds equal bilaterally. No accessory muscle use. GASTROINTESTINAL: Abdomen soft, non-tender, nondistended. +J-tube in place MUSCULOSKELETAL: No cyanosis, or edema, left hemiparesis Neuro: Awake and alert. Assessment and Plan - Assessment and Plan Plan: 1. Respiratory insufficiency 2. Altered mental status 3. Status post hypoglycemic episode. 4. Adrenal insufficiency. 5. Acute renal failure, Rhabdo 6. Lactic acidemia. 7. Elevated liver enzymes. 8. Leukocytosis with bandemia. 9. Seizure disorder. 10. Left basilar airspace disease. 11. History of pituitary dysfunction. 12. History of Boerhaave syndrome with spit fistula esophagectomy. 13. Previous J-tube placement. 14. Pacemaker secondary to bradycardia. 15. Hep C Plan Neuro: Awake and alert. Monitor neuro status . CT brain showed no intracranial findings. UDS: amphetamines and opiates. Continue Keppra and gabapentin. Ativan 1 mg IV every 4hours p.r.n. for seizures. Neuro is following. For EEG and MRI today. [employer] to reset pacemaker prior to MRI. morphine 2mg Q4PRN pain Pulm: Continue with oxygen and maintain sats >92%. Bronchodilators. CXR: Minimal left basilar airspace disease CV: Monitor HR and BP and maintain MAP> 65 mmHg. Lactic acid cleared 2.1 from 4.5 on arrival. : Monitor renal function, I's and O's, electrolytes replacement per protocol. Will need K, Phos replacement today Renal function is improving with Cr: 0.93 today from 2.04 Renal is following. d/c bicarb drip and place on D5NS@75ml/hr, monitor CK' s. ( trending down 11,764 from 57984) US abdomen: medical renal disease. Hepatosplenomegaly GI: Monitor LFT's ( trending down) Hepatitis profile: + Hep C Ig ab US abdomen: Hepatosplenomegaly on Protonix 40 mg IV daily for GI prophylaxis. Continue tube feeds via J-tube change to [place]pl[place] with goal rate 50ml/hr per nut. recommendations. ID: Given vancomycin and Zosyn in the ER. Continue Zosyn, add Vanco, monitor for signs of infection. Afebrile and WBC is trending down blood culture: NGTD, Wound cx: GNR, MRSA, Tamika Endo: On hydrocortisone 100 mg IV every 8 hours and D5NS for hypoglycemic episodes Accu-Chek every 4 hours f. TSH: 0.289 Heme: Monitor CBC and coags. GI prophylaxis- Protonix 40 mg daily DVT prophylaxis- SCD, not on AC prophylaxis due to thrombocytopenia ( PLT 56 today) Level 3
[2018-07-02] MEDS: Dextrose 5%/NaCl 0.9% Inj 1,000 ML IV.CONT SCH ×2 (09:22→23:42)
[2018-07-02] MEDS: Potassium Chlor 20 mEq Premix 20 MEQ/100 ML PIGGYBACK IV.SIG PRN ×4 (09:25→23:46)
[2018-07-02] MEDS: Pantoprazole Inj 40 MG Vial IV.PUSH SCH (09:25)
[2018-07-02] MEDS: Gabapentin 300 MG Capsule PO SCH ×3 (09:26→18:00)
--- NOTE | 2018-07-02 09:34 | MG ---
cc: Michael Rivero MD CLINICAL HISTORY: A 32-year-old man, encephalopathy low oxygenation, adrenal insufficiency, anxiety, Gabapentin. Recording shows what appears to be some sleep spindles which are synchronous and symmetric to start the recording. Recording overall is synchronous and symmetric. No hemisphere asymmetries are noted. No epileptiform or seizure activity is seen. Photic stimulation was performed without significant posterior driving. IMPRESSION: Generally unremarkable stage II sleep electroencephalogram with normal sleep spindle rhythms. Normal alpha and beta rhythms were also noted. There were no hemisphere asymmetries. No epileptiform or seizure activity was seen. Michael Rivero MD DJM/ar/ll , 08:02 AM , 08:06 AM
[2018-07-02] MEDS ORDERED: Vancomycin Consult Pharmacy OTHER PRN (10:27)
[2018-07-02] MEDS ORDERED: Potassium Chloride 25 MEQ Effervescent Tablet PO ONE (11:15)
[2018-07-02] MEDS: Vancomycin Inj 1,000 MG in Sodium Chlor 0.9% Inj 250 ML IV.SIG SCH ×2 (11:58→23:42)
--- NOTE | 2018-07-02 13:46 | P.PNNP ---
Subjective Interval history: Patient is on isolation due to MRSA in the wound however increased urine output rhabdomyolysis resolving Physical Exam Vital signs: Vital Signs 07/01/18 14:00 07/01/18 14:30 07/01/18 15:00 Temperature Pulse Rate 95 H 98 H 95 H Respiratory Rate 15 17 17 Blood Pressure 126/72 124/73 126/74 Pulse Oximetry 99 99 99 07/01/18 15:04 07/01/18 15:30 07/01/18 16:00 Temperature 98.4 F Pulse Rate 98 H 102 H 95 H Respiratory Rate 16 23 18 Blood Pressure 122/60 116/66 Pulse Oximetry 100 78 L 07/01/18 16:30 07/01/18 17:00 07/01/18 17:30 Temperature Pulse Rate 101 H 95 H 92 H Respiratory Rate 16 15 15 Blood Pressure 125/72 124/65 126/71 Pulse Oximetry 100 100 98 07/01/18 18:00 07/01/18 18:30 07/01/18 19:00 Temperature Pulse Rate 98 H 94 H 96 H Respiratory Rate 11 L 17 23 Blood Pressure 115/76 116/67 118/74 Pulse Oximetry 100 100 99 07/01/18 19:07 07/01/18 19:30 07/01/18 20:00 Temperature 98.4 F Pulse Rate 81 102 H 87 Respiratory Rate 16 15 14 Blood Pressure 123/71 117/70 Pulse Oximetry 98 97 99 07/01/18 20:30 07/01/18 21:00 07/01/18 21:30 Temperature Pulse Rate 74 85 80 Respiratory Rate 13 14 7 L Blood Pressure 122/69 123/71 129/62 Pulse Oximetry 98 99 98 07/01/18 22:00 07/01/18 22:30 07/01/18 23:00 Temperature Pulse Rate 80 68 76 Respiratory Rate 14 11 L 16 Blood Pressure 128/62 118/67 114/70 Pulse Oximetry 99 100 99 07/01/18 23:30 07/02/18 00:00 07/02/18 00:30 Temperature 98.6 F Pulse Rate 76 75 60 Respiratory Rate 25 H 18 15 Blood Pressure 121/69 122/66 106/56 L Pulse Oximetry 100 100 99 07/02/18 01:00 07/02/18 01:30 07/02/18 02:00 Temperature Pulse Rate 71 69 60 Respiratory Rate 15 13 16 Blood Pressure 115/68 123/77 118/76 Pulse Oximetry 98 100 100 07/02/18 02:30 07/02/18 03:00 07/02/18 03:30 Temperature Pulse Rate 71 62 60 Respiratory Rate 14 51 H 13 Blood Pressure 117/69 122/70 113/59 L Pulse Oximetry 99 99 98 07/02/18 04:00 07/02/18 04:30 07/02/18 05:00 Temperature 98.6 F Pulse Rate 60 70 60 Respiratory Rate 13 14 13 Blood Pressure 107/55 L 126/76 115/64 Pulse Oximetry 97 99 100 07/02/18 05:30 07/02/18 06:00 07/02/18 06:30 Temperature Pulse Rate 86 67 60 Respiratory Rate 27 H 19 10 L Blood Pressure 118/68 125/68 126/69 Pulse Oximetry 100 100 100 07/02/18 07:00 07/02/18 07:07 07/02/18 07:30 Temperature Pulse Rate 73 60 61 Respiratory Rate 24 16 24 Blood Pressure 136/74 112/57 L Pulse Oximetry 100 100 100 07/02/18 11:00 Temperature Pulse Rate 60 Respiratory Rate 14 Blood Pressure Pulse Oximetry Intake & Output 07/01/18 07/02/18 07/02/18 18:59 06:59 18:59 Intake Total 1907 / 1907 1815 / 1815 100 / 100 Output Total 700 / 700 900 / 900 Balance 1207 / 1207 915 / 915 100 / 100 Weight 77.5 kg Intake: IV 1255 / 1255 1205 / 1205 100 / 100 Sodium Bicarbonate 8.4% Inj 150 1100 / 1100 1000 / 1000 MEQ In D5W Inj 850 ML @ 150 mls/hr IV.CONT .Q6H40M [facility] Rx#: [id number] Zosyn 2.25 GM Premix 50 ML @ 50 / 50 100 / 100 100 mls/hr IV.SIG Q8H [facility] Rx#: [id number] KCl 20 mEq Premix Inj 20 meq In 100 / 100 100 ml @ 50 mls/hr IV.SIG Q2H [facility] Rx#:[id number] Keppra Inj 500 MG In NS Inj 100 105 / 105 105 / 105 ML @ 400 mls/hr IV.SIG Q12H [facility] Rx#:[id number] Tube Feeding 532 / 532 550 / 550 Tube Irrigant 120 / 120 60 / 60 Output: Urine 700 / 700 900 / 900 Other: Date of Last Bowel Movement 06/29/18 06/29/18 # Bowel Movements 0 Narrative: Physical exam GENERAL: MAL-nourished, well-developed patient. SKIN: Warm and dry. HEAD: Normocephalic. EYES: No scleral icterus. No injection or drainage. Accupril reactive to light blood right slightly dilated than the left NECK: Supple, there is a bag on the left side of the neck CARDIOVASCULAR: Tachycardia RESPIRATORY: Breath sounds equal bilaterally. No accessory muscle use. GASTROINTESTINAL: Abdomen soft, non-tender, nondistended. 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
--- NOTE | 2018-07-02 15:02 | P.PNWCN ---
Wound Care Nurse Consult Description: Patient seen today for follow up of esophageal cutaneous fistula management Communicated with: Blayne Gutierrez and patient Recommendation: Please change one piece pouching system to esophageal fistula every 3 to 5 days or as needed if leaking. Use dalila seal lining fistula opening before applying pouch.Do not throw away clip for clip closure Active life pouch. Wound/Pressure Injury - Additional Information Received call from Valentina Gutierrez RN [facility] [place], per public health physician appliance, applied over fistula yesterday has fallen off. Ordered one piece active life appliance from [facility] with transparent pouch. Removed paper towel in place to L anterior side of neck to reveal esophageal/cutaneous fistula. Moderate amount of clear mucous is noted on paper towel. Kalina fistula skin was cleansed with water and wash cloth and patted dry. Applied skin barrier film spray to skin surrounding fistula. Applied Dalila's seal to kalina fistula skin lining fistula. Applied one piece active life with transparent pouch in place. Held pressure for 1 minute to allow for appliance to adhere to skin. Removed outer paper tabs. Appliance was clipped closed using reusable clip closure.
--- NOTE | 2018-07-02 15:03 | CT ---
EXAM DATE: 07/02/2018 2:59 PM EST AGE/SEX: 32 years / Male INDICATIONS: New onset right sided weakness. Change in pupils. CLINICAL DATA: This is the patient's initial encounter. Patient reports that signs and symptoms have been present for 1 day and indicates a pain score of 0/10. MEDICAL/SURGICAL HISTORY: Transient ischemic attack. Seizure. Esophageal rupture. Boerhaave syndrom e. None. RADIATION DOSE: 39.12 CTDI (mGy) COMPARISON: [facility] [place], CT HEAD W/O CONTRAST, 06/30/2018. . TECHNIQUE: CT of the head without contrast. Using automated exposure control and adjustment of the mA and/or kV according to patient size, radiation dose was kept as low as reasonably achievable to ob tain optimal diagnostic quality images. DICOM format image data is available electronically for revi ew and comparison. FINDINGS: Cerebrum: The ventricles are normal for age. No evidence of midline shift, mass lesion, hemorrhage or acute infarction. No extraaxial fluid collections are seen. Posterior Fossa: The cerebellum and brainstem are intact. The 4th ventricle is midline. The cerebe llopontine angle is unremarkable. Extracranial: The visualized portion of the orbits is intact. Skull: The calvaria is intact. No evidence of skull fracture. CONCLUSION: 1. Stable negative noncontrast CT. . Electronically signed by: Scott Ramírez MD 07/02/2018 3:02 PM EST
--- NOTE | 2018-07-02 17:31 | P.CONCA ---
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 He does not remember what happened prior to his arrival to [facility]. Per the records his mother attempted to contact him and was unsuccessful so she called EMS. He was found in his motel room, where he lives, confused, mumbling, he was hypoglycemic. He was given dextrose by EMS. On arrival to the ER, he was tachycardic, hypotensive, with a systolic in the 90' s. His drug screen was positive for opiates and amphetamines. He currently denies any CP, pressure, palpitations, dizziness, edema or SOB. Review of Systems All other systems reviewed negative except as stated [facility] - History History Provided By: Medical Record - Medical History Medical History: Medical History (Last Updated 07/01/18 @ 09:13 by Marva King) Adrenal insufficiency Anxiety Bradycardia Compression fracture Difficult intubation Esophageal rupture Fistula History of MRSA infection Onset Date: ~06/30/18 Hypoglycemia Liver disease PTSD (post-traumatic stress disorder) Pacemaker Seizure TIA (transient ischemic attack) - Tobacco History Second Hand Smoke Exposure: Yes Tobacco Use In Past 30 Days: Yes Smoking Status: Current every day smoker Tobacco Type: Cigarettes - Alcohol History How Often Do You Have a Drink Containing Alcohol: Never - Substance Use History Substance History: No History of Abuse - Travel History Recent Travel in the [facility] Within the Last 8 Weeks: No Recent Travel Out of the Country Within the Last 8 Weeks: No - Immunization History Tetanus Immunization: Unsure Medications and Allergies Allergies Allergy/AdvReac Type Severity Reaction Status Date / Time codeine Allergy Severe Hives Unverified 06/30/18 10:28 tramadol Allergy Severe seizure Unverified 08/04/17 18:49 cyclobenzaprine Allergy Unknown Unresponsiv Verified 06/30/18 10:28 e fluvoxamine Allergy Unknown Unresponsiv Verified 06/30/18 10:28 e zolpidem Allergy Unknown Unconscious Verified 06/30/18 10:28 Beta-Blockers Allergy Anaphylaxis Verified 06/30/18 10:28 (Beta-Adrenergic Bloc MRI PRECAUTION AdvReac Severe NON REVO Uncoded 08/04/17 18:49 PACEMAKER Home Medications Medication Instructions Recorded Confirmed Type albuterol sulfate [Proventil HFA] INHALATION Q3-4H PRN 06/30/18 History fentanyl 1 patch TRANSDERMAL Q72H 06/30/18 06/30/18 History gabapentin 300 mg PO TID 06/30/18 06/30/18 History levetiracetam [Keppra] 750 mg PO BID 06/30/18 06/30/18 History levothyroxine [Synthroid] 75 mcg PO DAILY 06/30/18 06/30/18 History lorazepam [Ativan] 1 mg PO BID 06/30/18 06/30/18 History morphine 15 mg PO Q4-6H PRN 06/30/18 06/30/18 History quetiapine [Seroquel] 400 mg PO BID 06/30/18 06/30/18 History Active Medications: Active Medications Al Hydroxide/Mg Hydroxide (Milk Of Saavntiti Limarco) 30 ml PO Q12H PRN PRN Reason: Mild Constipation Albuterol (Duoneb Neb (Prn)) 1 ampul NEB Q2HR NEB PRN PRN Reason: WHEEZING Albuterol (Duoneb Neb (Felipa)) 1 ampul NEB Q4HR NEB FELIPA Last Admin: 07/02/18 15:46 Dose: 1 ampul Bisacodyl (Dulcolax Supp) 10 mg RECTAL DAILY PRN PRN Reason: SEVERE CONSITIPATION Chlorhexidine Gluconate (Chlorhexidine 2% Cloth) 3 pack TOPICAL DAILY@0400 FELIPA Stop: 07/06/18 03:59 Last Admin: 07/02/18 04:21 Dose: 3 pack Chlorhexidine Gluconate (Chlorhexidine 2% Cloth) 3 pack TOPICAL DAILY@0400 PRN PRN Reason: Extra cloth needed Stop: 07/06/18 03:59 Dextrose (D50w Vial) 50 ml IV.PUSH UNSCH PRN PRN Reason: PER HYPOGLYCEMIA PROTOCOL Gabapentin (Neurontin) 300 mg PO TID FELIPA Last Admin: 07/02/18 14:04 Dose: 300 mg Glucagon (Glucagon Inj) 1 mg OTHER PRN PRN PRN Reason: for Hypoglycemia Protocol Hydrocortisone Sodium Succinate (Solucortef Inj) 100 mg IV.PUSH Q8HR [facility] Last Admin: 07/02/18 14:04 Dose: 100 mg Vancomycin HCl 1,000 mg/ (Sodium Chloride) 250 mls @ 250 mls/hr IV.SIG REHABILITATION COUNSELLOR [facility] Levetiracetam 500 mg/ Sodium (Chloride) 105 mls @ 400 mls/hr IV.SIG Q12H [facility] Last Admin: 07/02/18 14:04 Dose: 400 mls/hr Piperacillin/Tazobactam/Dextrose (Zosyn 2.25 Gm Premix) 50 mls @ 100 mls/hr IV.SIG Q8H [facility] Last Admin: 07/02/18 14:03 Dose: 100 mls/hr Magnesium Sulfate 4 gm/ Sodium (Chloride) 100 mls @ 50 mls/hr IV.SIG UNSCH PRN PRN Reason: For Magnesium 0.9 - 1.1 mg/dL Magnesium Sulfate 2 gm/ Sodium (Chloride) 100 mls @ 50 mls/hr IV.SIG UNSCH PRN PRN Reason: For Magnesium 1.2 - 1.6 mg/dL Potassium Chloride (Kcl 40 Meq Premix Inj) 40 meq in 100 mls @ 25 mls/hr IV.SIG Q2H PRN PRN Reason: For Potassium 2.8 - 3.2 mEq/L Potassium Chloride (Kcl 20 Meq Premix Inj) 20 meq in 100 mls @ 50 mls/hr IV.SIG Q2H PRN PRN Reason: For Potassium 3.3 - 3.5 mEq/L Potassium Chloride (Kcl 40 Meq Premix Inj) 40 meq in 100 mls @ 25 mls/hr IV.SIG UNSCH PRN PRN Reason: For Potassium 3.3 - 3.5 mEq/L Potassium Chloride (Kcl 20 Meq Premix Inj) 20 meq in 100 mls @ 50 mls/hr IV.SIG Q2H PRN PRN Reason: For Potassium 2.8 - 3.2 mEq/L Last Admin: 07/02/18 11:55 Dose: 50 mls/hr Sodium Phosphate 30 mmol/ (Sodium Chloride) 260 mls @ 42 mls/hr IV.SIG UNSCH PRN PRN Reason: For Phosphorus < 2.5 mg/dL Potassium Phosphate 30 mmol/ (Sodium Chloride) 260 mls @ 42 mls/hr IV.SIG UNSCH PRN PRN Reason: SEE LABEL COMMENTS Dextrose/Sodium Chloride (D5w/Normal Saline Inj) 1,000 mls @ 75 mls/hr IV.CONT .[id number] [facility] Last Admin: 07/02/18 09:22 Dose: 75 mls/hr Vancomycin HCl 1,000 mg/ (Sodium Chloride) 250 mls @ 250 mls/hr IV.SIG Q12H [facility] Last Admin: 07/02/18 11:58 Dose: 250 mls/hr Insulin Human Regular (Novolin R Correctional Sugar Inj) 0 units SQ Q4HR [facility]; Protocol Last Admin: 07/02/18 12:05 Dose: Not Given Lactulose (Lactulose Liq) 30 ml PO DAILY PRN PRN Reason: SEVERE CONSITIPATION Magnesium Oxide (Mag-Ox) 800 mg PO UNSCH PRN PRN Reason: For Magnesium 1.2 - 1.6 mg/dL Miscellaneous Information ([facility] Ordered Lab Info) 0 each OTHER ONCE ONE Stop: 07/03/18 22:46 Morphine Sulfate (Morphine Inj) 2 mg IV.PUSH Q4H PRN PRN Reason: PAIN SCALE 3 TO 5 Last Admin: 07/02/18 15:27 Dose: 2 mg Pantoprazole Sodium (Protonix Inj) 40 mg IV.PUSH DAILY [facility] Last Admin: 07/02/18 09:25 Dose: 40 mg Pharmacy Profile Note (Vancomycin Consult Pharmacy) 1 each OTHER UNSCH PRN PRN Reason: Pharmacy to dose Potassium Bicarb/Potassium Chloride (K-Lyte Cl Eff) 50 meq PO UNSCH PRN PRN Reason: For Potassium 3.3 - 3.5 mEq/L Potassium Phosphate (K-Phos Original) 2,000 mg PO Q4H PRN PRN Reason: Phosphorus Less Than 2.5 mg/dL Potassium Phosphate (K-Phos Original) 2,000 mg PO UNSCH PRN PRN Reason: SEE LABEL COMMENTS Sennosides (Senokot) 17.2 mg PO Q12H PRN PRN Reason: Moderate Constipation Sodium Chloride (Ns Flush) 2 ml IV.FLUSH PRN PRN PRN Reason: FLUSH AFTER USING IV ACCESS Exam Vital signs: Vital Signs 07/01/18 17:30 07/01/18 18:00 07/01/18 18:30 Temperature Pulse Rate 92 H 98 H 94 H Respiratory Rate 15 11 L 17 Blood Pressure 126/71 115/76 116/67 Pulse Oximetry 98 100 100 07/01/18 19:00 07/01/18 19:07 07/01/18 19:30 Temperature Pulse Rate 96 H 81 102 H Respiratory Rate 23 16 15 Blood Pressure 118/74 123/71 Pulse Oximetry 99 98 97 07/01/18 20:00 07/01/18 20:30 07/01/18 21:00 Temperature 98.4 F Pulse Rate 87 74 85 Respiratory Rate 14 13 14 Blood Pressure 117/70 122/69 123/71 Pulse Oximetry 99 98 99 07/01/18 21:30 07/01/18 22:00 07/01/18 22:30 Temperature Pulse Rate 80 80 68 Respiratory Rate 7 L 14 11 L Blood Pressure 129/62 128/62 118/67 Pulse Oximetry 98 99 100 07/01/18 23:00 07/01/18 23:30 07/02/18 00:00 Temperature 98.6 F Pulse Rate 76 76 75 Respiratory Rate 16 25 H 18 Blood Pressure 114/70 121/69 122/66 Pulse Oximetry 99 100 100 07/02/18 00:30 07/02/18 01:00 07/02/18 01:30 Temperature Pulse Rate 60 71 69 Respiratory Rate 15 15 13 Blood Pressure 106/56 L 115/68 123/77 Pulse Oximetry 99 98 100 07/02/18 02:00 07/02/18 02:30 07/02/18 03:00 Temperature Pulse Rate 60 71 62 Respiratory Rate 16 14 51 H Blood Pressure 118/76 117/69 122/70 Pulse Oximetry 100 99 99 07/02/18 03:30 07/02/18 04:00 07/02/18 04:30 Temperature 98.6 F Pulse Rate 60 60 70 Respiratory Rate 13 13 14 Blood Pressure 113/59 L 107/55 L 126/76 Pulse Oximetry 98 97 99 07/02/18 05:00 07/02/18 05:30 07/02/18 06:00 Temperature Pulse Rate 60 86 67 Respiratory Rate 13 27 H 19 Blood Pressure 115/64 118/68 125/68 Pulse Oximetry 100 100 100 07/02/18 06:30 07/02/18 07:00 07/02/18 07:07 Temperature Pulse Rate 60 73 60 Respiratory Rate 10 L 24 16 Blood Pressure 126/69 136/74 Pulse Oximetry 100 100 100 07/02/18 07:30 07/02/18 08:00 07/02/18 10:00 Temperature 98.3 F Pulse Rate 61 60 60 Respiratory Rate 24 30 H Blood Pressure 112/57 L 122/65 Pulse Oximetry 100 99 07/02/18 11:00 07/02/18 12:00 07/02/18 14:00 Temperature 98.4 F Pulse Rate 60 60 60 Respiratory Rate 14 13 Blood Pressure 128/70 Pulse Oximetry 99 07/02/18 15:48 07/02/18 16:00 Temperature 98.2 F Pulse Rate 60 60 Respiratory Rate 17 15 Blood Pressure 128/80 Pulse Oximetry 99 Intake & Output 07/01/18 07/02/18 07/02/18 18:59 06:59 18:59 Intake Total 1907 / 1907 1815 / 1815 100 / 100 Output Total 700 / 700 900 / 900 Balance 1207 / 1207 915 / 915 100 / 100 Weight 77.5 kg Intake: IV 1255 / 1255 1205 / 1205 100 / 100 Sodium Bicarbonate 8.4% Inj 150 1100 / 1100 1000 / 1000 MEQ In D5W Inj 850 ML @ 150 mls/hr IV.CONT .Q6H40M FELIPA Rx#: [id number] Zosyn 2.25 GM Premix 50 ML @ 50 / 50 100 / 100 100 mls/hr IV.SIG Q8H FELIPA Rx#: [id number] KCl 20 mEq Premix Inj 20 meq In 100 / 100 100 ml @ 50 mls/hr IV.SIG Q2H PRN Rx#:[id number] Keppra Inj 500 MG In NS Inj 100 105 / 105 105 / 105 ML @ 400 mls/hr IV.SIG Q12H FELIPA Rx#:[id number] Tube Feeding 532 / 532 550 / 550 Tube Irrigant 120 / 120 60 / 60 Output: Urine 700 / 700 900 / 900 Other: Date of Last Bowel Movement 06/29/18 06/29/18 # Bowel Movements 0 - Constitutional no acute distress - Routine HEENT Exam Head: Present: normocephalic Eye: Present: PERRL ENT: Present: mucous membranes moist Comments: stoma to the left side of the neck. - Routine Neck Exam Present: full ROM - Routine Respiratory Exam Present: CTA bilaterally - Routine Cardiovascular Exam Present: S1, S2. Absent: murmur, gallop, rubs - Routine Abdominal Exam Present: normoactive bowel sounds - Routine Extremities Exam Present: full ROM, pulses intact, normal capillary refill. Absent: cyanosis, clubbing, edema - Routine Skin Exam Present: intact - Routine Neurological Exam Present: oriented X3 Results 07/02/18 04:53 07/02/18 18:23 Cardiac Enzymes 07/01/18 07/02/18 Range/Units 02:09 04:53 AST 1092 H 723 H (15-37) U/L CK-MB (CK-2) 340.9 H 30.3 H (0.5-3.6) ng/mL CBC 06/30/18 07/01/18 07/02/18 Range/Units 17:08 02:09 04:53 WBC 15.8 H 13.0 H 6.9 (4.0-11.0) th/mm3 RBC 4.32 L 4.30 L 3.36 L (4.50-5.90) mil/mm3 Hgb 14.1 13.8 11.1 L D (13.0-17.0) gm/dL Hct 41.3 41.3 31.1 L (39.0-51.0) % Plt Count 77 L 70 L 56 L (150-450) th/mm3 Neut # (Auto) 14.6 H 12.4 H 6.3 (1.8-7.7) th/mm3 Lymph # (Auto) 0.3 L 0.3 L 0.3 L (1.0-4.8) th/mm3 [place] # (Auto) 0.8 0.3 0.3 (0.0-0.9) th/mm3 Eos # (Auto) 0.0 0.0 0.0 (0.0-0.4) th/mm3 Baso # (Auto) 0.0 0.0 0.0 (0.0-0.2) th/mm3 Comprehensive Metabolic Panel 06/30/18 07/01/18 07/02/18 Range/Units 20:48 02:09 04:53 Sodium 136 140 142 (136-145) meq/L Potassium 4.1 D 3.7 2.2 L* D (3.5-5.1) meq/L Chloride 103 103 98 (98-107) meq/L Carbon Dioxide 21.8 27.4 37.0 H D (21.0-32.0) meq/L BUN 39 H 37 H 25 H (7-18) mg/dL Creatinine 2.49 H 2.04 H 0.93 (0.60-1.30) mg/dL Calcium 7.0 L* 6.7 L* 7.0 L* (8.5-10.1) mg/dL AST 1092 H 723 H (15-37) U/L ALT 302 H 276 H (12-78) U/L Alkaline Phosphatase 161 H 122 H (45-117) U/L Total Protein 6.6 D 5.4 L D (6.4-8.2) g/dL Albumin 2.6 L 2.7 L 2.1 L D (3.4-5.0) g/dL Intake and Output 07/02/18 07/02/18 07/02/18 06:59 14:59 22:59 Intake Total 1765 / 1765 100 / 100 Output Total 900 / 900 Balance 865 / 865 100 / 100 Intake: IV 1155 / 1155 100 / 100 Sodium Bicarbonate 8.4% Inj 150 1000 / 1000 MEQ In D5W Inj 850 ML @ 150 mls/hr IV.CONT .Q6H40M FELIPA Rx#: [id number] Zosyn 2.25 GM Premix 50 ML @ 50 / 50 100 mls/hr IV.SIG Q8H FELIPA Rx#: [id number] KCl 20 mEq Premix Inj 20 meq In 100 / 100 100 ml @ 50 mls/hr IV.SIG Q2H PRN Rx#:[id number] Keppra Inj 500 MG In NS Inj 100 105 / 105 ML @ 400 mls/hr IV.SIG Q12H FELIPA Rx#:[id number] Tube Feeding 550 / 550 Tube Irrigant 60 / 60 Output: Urine 900 / 900 Other: Date of Last Bowel Movement 06/29/18 Weight 77.5 kg - Imaging and Cardiology Imaging: Impressions Head CT 07/02/18 14:12 CONCLUSION: 1. Stable negative noncontrast CT. . 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 Normal pacemaker function. His pacemaker is MRI compatible; proceed with MRI as planned. We will continue to monitor patient during his hospitalization We will continue with current cardiac treatment plan. The patient was seen and evaluated by Dr. Robledo. - Attending Attestation Patient seen and examined. I reviewed and agree with the evaluation and plan as presented. His [employer] pacemaker is MRI compatible; proceed with MRI as planned. Continue current program.
--- NOTE | 2018-07-02 18:46 | MG ---
cc: Michael Rviero MD ELECTROENCEPHALOGRAM NUMBER: [id number] CLINICAL HISTORY: Low O2 sats in a 32-year-old man with PTSD, anxiety. MEDICATIONS: 1. Gabapentin. 2. Morphine. DESCRIPTION: A 7 Hz diffuse slowing is seen at 60 microvolts. The recording overall is synchronous and symmetric. No epileptiform or seizure activity is seen. Some 3 Hz slowing is occasionally noted diffusely and 5 Hz slowing. Photic stimulation is performed without significant posterior driving. IMPRESSION: Some diffuse slowing consistent with a mild to moderate diffuse encephalopathy, but no focal abnormality is noted and no seizure activity is seen. MD ARABELLA Tamayo/ren , 06:15 PM , 06:22 PM
--- NOTE | 2018-07-02 19:19 | P.PNNEU ---
Subjective Subjective Comments: Pt c/o right leg weakness in addition to left sided weakness. developed anisicoria today Active Medications: Active Medications Al Hydroxide/Mg Hydroxide (Milk Of Guillermo Liq) 30 ml PO Q12H PRN PRN Reason: Mild Constipation Albuterol (Duoneb Neb (Prn)) 1 ampul NEB Q2HR NEB PRN PRN Reason: WHEEZING Albuterol (Duoneb Neb (Felipa)) 1 ampul NEB Q4HR NEB [facility] Last Admin: 07/02/18 15:46 Dose: 1 ampul Bisacodyl (Dulcolax Supp) 10 mg RECTAL DAILY PRN PRN Reason: SEVERE CONSITIPATION Chlorhexidine Gluconate (Chlorhexidine 2% Cloth) 3 pack TOPICAL DAILY@0400 [facility] Stop: 07/06/18 03:59 Last Admin: 07/02/18 04:21 Dose: 3 pack Chlorhexidine Gluconate (Chlorhexidine 2% Cloth) 3 pack TOPICAL DAILY@0400 PRN PRN Reason: Extra cloth needed Stop: 07/06/18 03:59 Dextrose (D50w Vial) 50 ml IV.PUSH UNSCH PRN PRN Reason: PER HYPOGLYCEMIA PROTOCOL Gabapentin (Neurontin) 300 mg PO TID [facility] Last Admin: 07/02/18 18:00 Dose: 300 mg Glucagon (Glucagon Inj) 1 mg OTHER PRN PRN PRN Reason: for Hypoglycemia Protocol Hydrocortisone Sodium Succinate (Solucortef Inj) 100 mg IV.PUSH Q8HR [facility] Last Admin: 07/02/18 14:04 Dose: 100 mg Vancomycin HCl 1,000 mg/ (Sodium Chloride) 250 mls @ 250 mls/hr IV.SIG WEB CONTENT COORDINATOR [facility] Levetiracetam 500 mg/ Sodium (Chloride) 105 mls @ 400 mls/hr IV.SIG Q12H [facility] Last Infusion: 07/02/18 18:01 Dose: Infused Piperacillin/Tazobactam/Dextrose (Zosyn 2.25 Gm Premix) 50 mls @ 100 mls/hr IV.SIG Q8H [facility] Last Infusion: 07/02/18 18:01 Dose: Infused Magnesium Sulfate 4 gm/ Sodium (Chloride) 100 mls @ 50 mls/hr IV.SIG UNSCH PRN PRN Reason: For Magnesium 0.9 - 1.1 mg/dL Magnesium Sulfate 2 gm/ Sodium (Chloride) 100 mls @ 50 mls/hr IV.SIG UNSCH PRN PRN Reason: For Magnesium 1.2 - 1.6 mg/dL Potassium Chloride (Kcl 40 Meq Premix Inj) 40 meq in 100 mls @ 25 mls/hr IV.SIG Q2H PRN PRN Reason: For Potassium 2.8 - 3.2 mEq/L Potassium Chloride (Kcl 20 Meq Premix Inj) 20 meq in 100 mls @ 50 mls/hr IV.SIG Q2H PRN PRN Reason: For Potassium 3.3 - 3.5 mEq/L Potassium Chloride (Kcl 40 Meq Premix Inj) 40 meq in 100 mls @ 25 mls/hr IV.SIG UNSCH PRN PRN Reason: For Potassium 3.3 - 3.5 mEq/L Potassium Chloride (Kcl 20 Meq Premix Inj) 20 meq in 100 mls @ 50 mls/hr IV.SIG Q2H PRN PRN Reason: For Potassium 2.8 - 3.2 mEq/L Last Admin: 07/02/18 11:55 Dose: 50 mls/hr Sodium Phosphate 30 mmol/ (Sodium Chloride) 260 mls @ 42 mls/hr IV.SIG UNSCH PRN PRN Reason: For Phosphorus < 2.5 mg/dL Potassium Phosphate 30 mmol/ (Sodium Chloride) 260 mls @ 42 mls/hr IV.SIG UNSCH PRN PRN Reason: SEE LABEL COMMENTS Dextrose/Sodium Chloride (D5w/Normal Saline Inj) 1,000 mls @ 75 mls/hr IV.CONT .[id number] [facility] Last Admin: 07/02/18 09:22 Dose: 75 mls/hr Vancomycin HCl 1,000 mg/ (Sodium Chloride) 250 mls @ 250 mls/hr IV.SIG Q12H [facility] Last Infusion: 07/02/18 18:01 Dose: Infused Insulin Human Regular (Novolin R Correctional Sugar Inj) 0 units SQ Q4HR [facility]; Protocol Last Admin: 07/02/18 18:01 Dose: Not Given Lactulose (Lactulose Liq) 30 ml PO DAILY PRN PRN Reason: SEVERE CONSITIPATION Magnesium Oxide (Mag-Ox) 800 mg PO UNSCH PRN PRN Reason: For Magnesium 1.2 - 1.6 mg/dL Miscellaneous Information ([facility] Ordered Lab Info) 0 each OTHER ONCE ONE Stop: 07/03/18 22:46 Morphine Sulfate (Morphine Inj) 2 mg IV.PUSH Q4H PRN PRN Reason: PAIN SCALE 3 TO 5 Last Admin: 07/02/18 15:27 Dose: 2 mg Pantoprazole Sodium (Protonix Inj) 40 mg IV.PUSH DAILY [facility] Last Admin: 07/02/18 09:25 Dose: 40 mg Pharmacy Profile Note (Vancomycin Consult Pharmacy) 1 each OTHER UNSCH PRN PRN Reason: Pharmacy to dose Potassium Bicarb/Potassium Chloride (K-Lyte Cl Eff) 50 meq PO UNSCH PRN PRN Reason: For Potassium 3.3 - 3.5 mEq/L Potassium Phosphate (K-Phos Original) 2,000 mg PO Q4H PRN PRN Reason: Phosphorus Less Than 2.5 mg/dL Potassium Phosphate (K-Phos Original) 2,000 mg PO UNSCH PRN PRN Reason: SEE LABEL COMMENTS Sennosides (Senokot) 17.2 mg PO Q12H PRN PRN Reason: Moderate Constipation Sodium Chloride (Ns Flush) 2 ml IV.FLUSH PRN PRN PRN Reason: FLUSH AFTER USING IV ACCESS Allergies/Adverse Reactions: Allergies Allergy/AdvReac Type Severity Reaction Status Date / Time codeine Allergy Severe Hives Unverified 06/30/18 10:28 tramadol Allergy Severe seizure Unverified 08/04/17 18:49 cyclobenzaprine Allergy Unknown Unresponsiv Verified 06/30/18 10:28 e fluvoxamine Allergy Unknown Unresponsiv Verified 06/30/18 10:28 e zolpidem Allergy Unknown Unconscious Verified 06/30/18 10:28 Beta-Blockers Allergy Anaphylaxis Verified 06/30/18 10:28 (Beta-Adrenergic Bloc MRI PRECAUTION AdvReac Severe NON REVO Uncoded 08/04/17 18:49 PACEMAKER Physical Exam Vital signs: Vital Signs 07/01/18 19:30 07/01/18 20:00 07/01/18 20:30 Temperature 98.4 F Pulse Rate 102 H 87 74 Respiratory Rate 15 14 13 Blood Pressure 123/71 117/70 122/69 Pulse Oximetry 97 99 98 07/01/18 21:00 07/01/18 21:30 07/01/18 22:00 Temperature Pulse Rate 85 80 80 Respiratory Rate 14 7 L 14 Blood Pressure 123/71 129/62 128/62 Pulse Oximetry 99 98 99 07/01/18 22:30 07/01/18 23:00 07/01/18 23:30 Temperature Pulse Rate 68 76 76 Respiratory Rate 11 L 16 25 H Blood Pressure 118/67 114/70 121/69 Pulse Oximetry 100 99 100 07/02/18 00:00 07/02/18 00:30 07/02/18 01:00 Temperature 98.6 F Pulse Rate 75 60 71 Respiratory Rate 18 15 15 Blood Pressure 122/66 106/56 L 115/68 Pulse Oximetry 100 99 98 07/02/18 01:30 07/02/18 02:00 07/02/18 02:30 Temperature Pulse Rate 69 60 71 Respiratory Rate 13 16 14 Blood Pressure 123/77 118/76 117/69 Pulse Oximetry 100 100 99 07/02/18 03:00 07/02/18 03:30 07/02/18 04:00 Temperature 98.6 F Pulse Rate 62 60 60 Respiratory Rate 51 H 13 13 Blood Pressure 122/70 113/59 L 107/55 L Pulse Oximetry 99 98 97 07/02/18 04:30 07/02/18 05:00 07/02/18 05:30 Temperature Pulse Rate 70 60 86 Respiratory Rate 14 13 27 H Blood Pressure 126/76 115/64 118/68 Pulse Oximetry 99 100 100 07/02/18 06:00 07/02/18 06:30 07/02/18 07:00 Temperature Pulse Rate 67 60 73 Respiratory Rate 19 10 L 24 Blood Pressure 125/68 126/69 136/74 Pulse Oximetry 100 100 100 07/02/18 07:07 07/02/18 07:30 07/02/18 08:00 Temperature 98.3 F Pulse Rate 60 61 60 Respiratory Rate 16 24 30 H Blood Pressure 112/57 L 122/65 Pulse Oximetry 100 100 100 07/02/18 10:00 07/02/18 11:00 07/02/18 12:00 Temperature 98.4 F Pulse Rate 60 60 60 Respiratory Rate 14 13 Blood Pressure 128/70 Pulse Oximetry 99 07/02/18 14:00 07/02/18 15:48 07/02/18 16:00 Temperature 98.2 F Pulse Rate 60 60 60 Respiratory Rate 17 15 Blood Pressure 128/80 Pulse Oximetry 99 Intake & Output 07/02/18 07/02/18 07/03/18 06:59 18:59 06:59 Intake Total 1815 / 1815 1024 / 1024 Output Total 900 / 900 900 / 900 Balance 915 / 915 124 / 124 Weight 77.5 kg Intake: IV 1205 / 1205 505 / 505 Sodium Bicarbonate 8.4% Inj 150 1000 / 1000 MEQ In D5W Inj 850 ML @ 150 mls/hr IV.CONT .Q6H40M [facility] Rx#: [id number] Zosyn 2.25 GM Premix 50 ML @ 100 / 100 50 / 50 100 mls/hr IV.SIG Q8H [facility] Rx#: [id number] KCl 20 mEq Premix Inj 20 meq In 100 / 100 100 ml @ 50 mls/hr IV.SIG Q2H PRN Rx#:[id number] Vancomycin Inj 1,000 MG In NS 250 / 250 Inj 250 ML @ 250 mls/hr IV.SIG Q12H [facility] Rx#:[id number] Keppra Inj 500 MG In NS Inj 100 105 / 105 105 / 105 ML @ 400 mls/hr IV.SIG Q12H [facility] Rx#:[id number] Tube Feeding 550 / 550 399 / 399 Tube Irrigant 60 / 60 120 / 120 Output: Urine 900 / 900 900 / 900 Other: Date of Last Bowel Movement 06/29/18 07/02/18 # Bowel Movements 1 - Routine Neurological Exam alert right pupil 4 mm and left pupil 2-3 mm. Both react, although right may be sluggish. No afferent pupil defect --i.e not Arun Aiden 4/5 LUE and LLE 3/5 RLE Objective Laboratory Results - last 24 hr 07/01/18 07/01/18 07/02/18 19:53 23:24 04:13 WBC RBC Hgb Hct MCV MCH MCHC RDW Plt Count MPV Prelim Diff (Auto) Neut % (Auto) Lymph % (Auto) Preston % (Auto) Eos % (Auto) Baso % (Auto) Neut # (Auto) Lymph # (Auto) Preston # (Auto) Eos # (Auto) Baso # (Auto) WBC Differential Seg Neuts % (Manual) Band Neuts % (Manual) Lymphocytes % (Manual) Monocytes % (Manual) Abs Neuts (Manual) Differential Comment Toxic Vacuolation Platelet Estimate Platelet Morphology Sodium Potassium Chloride Carbon Dioxide Anion Gap BUN Creatinine Estimated GFR POC Glucose 181 H 166 H 179 H Random Glucose Calcium Calcium Adj for Albumin Phosphorus Magnesium Total Bilirubin AST ALT Alkaline Phosphatase Total Creatine Kinase CK-MB (CK-2) CK-MB (CK-2) % Total Protein Albumin 07/02/18 07/02/18 07/02/18 04:53 04:53 10:35 WBC 6.9 RBC 3.36 L Hgb 11.1 L D Hct 31.1 L MCV 92.4 D MCH 32.9 MCHC 35.6 RDW 15.8 Plt Count 56 L MPV 8.7 Prelim Diff (Auto) Slide review pending Neut % (Auto) 90.7 H Lymph % (Auto) 4.2 L Preston % (Auto) 4.9 Eos % (Auto) 0.1 Baso % (Auto) 0.1 Neut # (Auto) 6.3 Lymph # (Auto) 0.3 L Preston # (Auto) 0.3 Eos # (Auto) 0.0 Baso # (Auto) 0.0 WBC Differential Manual diff final Seg Neuts % (Manual) 83 H Band Neuts % (Manual) 10 H Lymphocytes % (Manual) 2 L Monocytes % (Manual) 5 Abs Neuts (Manual) 6.4 Differential Comment . Toxic Vacuolation Present H Platelet Estimate Low L Platelet Morphology Normal Sodium 142 Potassium 2.2 L* D Chloride 98 Carbon Dioxide 37.0 H D Anion Gap 7 BUN 25 H Creatinine 0.93 Estimated GFR Greater than 89 POC Glucose 132 H Random Glucose 138 H Calcium 7.0 L* Calcium Adj for Albumin 8.5 D Phosphorus 1.9 L D Magnesium 1.9 Total Bilirubin 0.3 AST 723 H ALT 276 H Alkaline Phosphatase 122 H Total Creatine Kinase 11398 H CK-MB (CK-2) 30.3 H CK-MB (CK-2) % 0.3 Total Protein 5.4 L D Albumin 2.1 L D 07/02/18 07/02/18 07/02/18 12:04 16:39 18:23 WBC RBC Hgb Hct MCV MCH MCHC RDW Plt Count MPV Prelim Diff (Auto) Neut % (Auto) Lymph % (Auto) Preston % (Auto) Eos % (Auto) Baso % (Auto) Neut # (Auto) Lymph # (Auto) Preston # (Auto) Eos # (Auto) Baso # (Auto) WBC Differential Seg Neuts % (Manual) Band Neuts % (Manual) Lymphocytes % (Manual) Monocytes % (Manual) Abs Neuts (Manual) Differential Comment Toxic Vacuolation Platelet Estimate Platelet Morphology Sodium Potassium 2.6 L* Chloride Carbon Dioxide Anion Gap BUN Creatinine Estimated GFR POC Glucose 157 H 136 H Random Glucose Calcium Calcium Adj for Albumin Phosphorus Magnesium Total Bilirubin AST ALT Alkaline Phosphatase Total Creatine Kinase CK-MB (CK-2) CK-MB (CK-2) % Total Protein Albumin Microbiology 06/30/18 13:36 Aerobic Blood Culture - Preliminary Blood - Peripheral No growth in 2 days Anaerobic Blood Culture - Preliminary No growth in 2 days 06/30/18 13:26 Aerobic Blood Culture - Preliminary Blood - Peripheral No growth in 2 days Anaerobic Blood Culture - Preliminary No growth in 2 days 06/30/18 11:51 Gram Stain - Final Fluid - Other Wound Culture - Preliminary Pantoea [employer]glomer[employer] S. aureus MRSA Tamika albicans Review/Management - Diagnosis (1) Myelopathy Code(s): G95.9 - Disease of spinal cord, unspecified Status: Acute Current Visit: Yes - Review/Management Plan: check CT cervical and thoracic spines--r/o spinal stenosis when cleared by [employer], will get MRI of brain cervical and thoracic spines--r /o MS
[2018-07-02] MEDS ORDERED: Potassium Chlor 20 mEq Premix 20 MEQ/100 ML PIGGYBACK IV.SIG PRN (20:35)
--- NOTE | 2018-07-02 20:43 | CT ---
EXAM DATE: 07/02/2018 8:34 PM EST AGE/SEX: 32 years / Male INDICATIONS: Spinal stenosis. CLINICAL DATA: This is the patient's initial encounter. Patient reports that signs and symptoms have been present for 1 day and indicates a pain score of 0/10. MEDICAL/SURGICAL HISTORY: Transient ischemic attack. Liver disease. Esophageal rupture. Pacem vinh. RADIATION DOSE: 20.64 CTDI (mGy) COMPARISON: No prior exams available for comparison. TECHNIQUE: Contiguous axial images were obtained using helical multirow detector technique. The vol umetric data was post-processed with multiplanar reconstruction in oblique axial, sagittal, and coron al planes. Using automated exposure control and adjustment of the mA and/or kV according to patient s ize, radiation dose was kept as low as reasonably achievable to obtain optimal diagnostic quality lilia ges. DICOM format image data is available electronically for review and comparison. FINDINGS: No acute fracture or spondylolisthesis. No bony canal or foraminal stenosis is identified. There is s ome soft tissue swelling of the left neck to radiopaque foreign bodies in the subcutaneous tissues, p ossibly small catheter fragments. There is also some locules of air on the left side with a possible fistula extending towards the skin. CONCLUSION: 1. No acute bony abnormalities within the cervical spine. No canal stenosis identified. 2. Soft tissue swelling of the left neck with small radiopaque foreign bodies in the subcutaneous ti ssues and locules of air, possibly related to fistulous tract. Electronically signed by: Darian Day MD 07/02/2018 8:42 PM EST
--- NOTE | 2018-07-02 20:44 | CT ---
EXAM DATE: 07/02/2018 8:38 PM EST AGE/SEX: 32 years / Male INDICATIONS: Spinal stenosis. CLINICAL DATA: This is the patient's initial encounter. Patient reports that signs and symptoms have been present for 1 day and indicates a pain score of 0/10. MEDICAL/SURGICAL HISTORY: Transient ischemic attack. Esophageal rupture. Liver disease. Pacemaker . RADIATION DOSE: 14.38 CTDI (mGy) COMPARISON: [facility] [place] CERVICAL SPINE W/O CONTRAST, 07/02/2018. [facility] [place] THORACIC SPINE W/O CONTRA ST, 10/31/2016. . TECHNIQUE: Contiguous axial images were acquired using a multirow detector CT scanner without contra st. Multiplanar reconstruction in the sagittal and coronal planes was performed. Using automated exp osure control and adjustment of the mA and/or kV according to patient size, radiation dose was kept a s low as reasonably achievable to obtain optimal diagnostic quality images. DICOM format image data is available electronically for review and comparison. FINDINGS: Vertebrae: Mild loss of height at several lower thoracic vertebral bodies T7-T11, stable. Alignment: Mild kyphosis. No subluxation. T1 - T2: Normal. T2 - T3: The thecal sac has a normal diameter. No evidence of disc bulge or protrusion. T3 - T4: The thecal sac has a normal diameter. No evidence of disc bulge or protrusion. T4 - T5: The thecal sac has a normal diameter. No evidence of disc bulge or protrusion. T5 - T6: The thecal sac has a normal diameter. No evidence of disc bulge or protrusion. T6 - T7: The thecal sac has a normal diameter. No evidence of disc bulge or protrusion. T7 - T8: The thecal sac has a normal diameter. No evidence of disc bulge or protrusion. T8 - T9: The thecal sac has a normal diameter. No evidence of disc bulge or protrusion. T9 - T10: The thecal sac has a normal diameter. No evidence of disc bulge or protrusion. T10 - T11: The thecal sac has a normal diameter. No evidence of disc bulge or protrusion. T11 - T12: The thecal sac has a normal diameter. No evidence of disc bulge or protrusion. T12 - L1: The thecal sac has a normal diameter. No evidence of disc bulge or protrusion. CONCLUSION: 1. Mild kyphosis. 2. Mild loss of height of several lower thoracic vertebral bodies, stable. 3. No acute compression fracture. Electronically signed by: Abiodun Coto MD 07/02/2018 8:43 PM EST
[2018-07-03] MEDS: Morphine Sulfate Inj 2 MG/ML Vial IV.PUSH PRN ×5 (03:35→21:00)
[2018-07-03] MEDS: Piperacil/Tazo 2.25 GM Premix 50 ML IV.SIG SCH (04:09)
[2018-07-03] MEDS: Chlorhexidine Gluconate 2% 1 Pack (2 Cloths) TOPICAL SCH (04:17)
[2018-07-03] MEDS: Insulin NovoLIN Regular Correctional Sugar Inj SQ SCH ×6 (04:17→21:19)
[2018-07-03] MEDS: Hydrocortisone Sod Succinate 100 MG Vial IV.PUSH SCH ×3 (05:04→21:19)
[2018-07-03] MEDS: Gabapentin 300 MG Capsule PO SCH ×3 (08:01→17:04)
[2018-07-03] MEDS: Pantoprazole Inj 40 MG Vial IV.PUSH SCH (08:01)
[2018-07-03 10:05] LABS: Eos % (Auto) 0.1 % (0.0-4.0); Hematocrit 33.6 % (39.0-51.0); Hemoglobin 11.6 gm/dL (13.0-17.0); Lymph # (Auto) 0.3 th/mm3 (1.0-4.8); Lymph % (Auto) 7.9 % (9.0-44.0); Mean Corpuscular HGB Conc 34.5 % (32.0-36.0); Mean Corpuscular Hemoglobin 32.8 pg (27.0-34.0); Mean Platelet Volume 9.2 fL (7.0-11.0); Mono # (Auto) 0.2 th/mm3 (0.0-0.9); Mono % (Auto) 4.4 % (0.0-8.0); Neut # (Auto) 3.6 th/mm3 (1.8-7.7); Neut % (Auto) 87.6 % (16.0-70.0); Platelet Count 51 th/mm3 (150-450); Red Blood Count 3.54 mil/mm3 (4.50-5.90); Red Cell Distribution Width 15.6 % (11.6-17.2); White Blood Count 4.1 th/mm3 (4.0-11.0)
--- NOTE | 2018-07-03 10:13 | P.PNNP ---
Subjective Interval history: Patient is doing not too well he said he does not feel sensation in his legs and still have a lot of pain in the back Physical Exam Vital signs: Vital Signs 07/02/18 10:30 07/02/18 11:00 07/02/18 11:30 Temperature Pulse Rate 62 60 60 Respiratory Rate 17 13 11 L Blood Pressure 114/62 120/67 123/68 Pulse Oximetry 100 99 07/02/18 12:00 07/02/18 12:30 07/02/18 13:00 Temperature 98.4 F Pulse Rate 60 60 60 Respiratory Rate 13 12 16 Blood Pressure 128/70 128/78 122/71 Pulse Oximetry 99 99 100 07/02/18 13:30 07/02/18 14:00 07/02/18 14:30 Temperature Pulse Rate 62 60 60 Respiratory Rate 20 20 13 Blood Pressure 119/65 119/68 120/74 Pulse Oximetry 97 100 100 07/02/18 15:00 07/02/18 15:06 07/02/18 15:30 Temperature Pulse Rate 60 60 62 Respiratory Rate 25 H 18 23 Blood Pressure 127/73 119/67 Pulse Oximetry 100 100 100 07/02/18 15:48 07/02/18 16:00 07/02/18 16:30 Temperature 98.2 F Pulse Rate 60 60 78 Respiratory Rate 17 8 L 10 L Blood Pressure 128/80 115/66 Pulse Oximetry 100 97 07/02/18 17:00 07/02/18 17:30 07/02/18 18:00 Temperature Pulse Rate 60 68 60 Respiratory Rate 16 23 14 Blood Pressure 120/69 105/52 L 103/57 L Pulse Oximetry 99 98 100 07/02/18 18:30 07/02/18 19:00 07/02/18 19:20 Temperature Pulse Rate 60 60 60 Respiratory Rate 20 17 16 Blood Pressure 117/66 128/78 Pulse Oximetry 100 99 100 07/02/18 19:30 07/02/18 20:00 07/02/18 20:29 Temperature 98.6 F Pulse Rate 60 68 60 Respiratory Rate 19 24 28 H Blood Pressure 120/67 116/65 116/65 Pulse Oximetry 100 100 100 07/02/18 21:00 07/02/18 21:56 07/02/18 22:00 Temperature Pulse Rate 60 60 60 Respiratory Rate 12 9 L 13 Blood Pressure 119/73 116/70 Pulse Oximetry 100 99 99 07/02/18 22:30 07/02/18 23:00 07/02/18 23:30 Temperature Pulse Rate 60 60 59 L Respiratory Rate 23 23 15 Blood Pressure 112/65 135/81 134/81 Pulse Oximetry 100 100 98 07/03/18 00:00 07/03/18 00:30 07/03/18 01:00 Temperature 98.6 F Pulse Rate 60 63 59 L Respiratory Rate 18 24 16 Blood Pressure 135/85 132/75 137/79 Pulse Oximetry 100 100 98 07/03/18 01:30 07/03/18 02:00 07/03/18 02:30 Temperature Pulse Rate 61 62 60 Respiratory Rate 21 15 19 Blood Pressure 130/75 131/82 132/82 Pulse Oximetry 99 100 100 07/03/18 03:00 07/03/18 03:30 07/03/18 04:00 Temperature 98.6 F Pulse Rate 60 59 L 60 Respiratory Rate 3 L 18 16 Blood Pressure 127/76 134/78 133/82 Pulse Oximetry 99 99 98 07/03/18 04:30 07/03/18 05:00 07/03/18 05:30 Temperature Pulse Rate 60 60 60 Respiratory Rate 19 22 16 Blood Pressure 134/82 137/85 139/82 Pulse Oximetry 99 99 98 07/03/18 06:00 07/03/18 06:30 07/03/18 07:00 Temperature Pulse Rate 60 66 61 Respiratory Rate 12 32 H 23 Blood Pressure 143/86 H 138/66 149/84 H Pulse Oximetry 99 100 100 07/03/18 07:30 07/03/18 07:57 07/03/18 08:00 Temperature 99.0 F Pulse Rate 60 60 Respiratory Rate 26 H 25 H Blood Pressure 143/86 H 143/88 H Pulse Oximetry 100 100 100 07/03/18 08:47 07/03/18 09:00 Temperature Pulse Rate 60 61 Respiratory Rate 26 H 23 Blood Pressure 138/85 154/90 H Pulse Oximetry 100 100 Intake & Output 07/02/18 07/03/18 07/03/18 18:59 06:59 18:59 Intake Total 1124 / 1124 1906 / 1906 0 / 0 Output Total 900 / 900 420 / 420 Balance 224 / 224 1486 / 1486 0 / 0 Weight 77.5 kg Intake: IV 605 / 605 1655 / 1655 0 / 0 D5W/Normal Saline Inj 1,000 ML 1000 / 1000 @ 75 mls/hr IV.CONT .[id number] [facility] Rx#:[id number] Zosyn 2.25 GM Premix 50 ML @ 50 / 50 100 / 100 100 mls/hr IV.SIG Q8H [facility] Rx#: [id number] KCl 20 mEq Premix Inj 20 meq In 200 / 200 200 / 200 0 / 0 100 ml @ 50 mls/hr IV.SIG Q2H [facility]N Rx#:[id number] Vancomycin Inj 1,000 MG In NS 250 / 250 250 / 250 Inj 250 ML @ 250 mls/hr IV.SIG Q12H [facility] Rx#:[id number] Keppra Inj 500 MG In NS Inj 100 105 / 105 105 / 105 ML @ 400 mls/hr IV.SIG Q12H [facility] Rx#:[id number] Tube Feeding 399 / 399 251 / 251 Tube Irrigant 120 / 120 Output: Urine 900 / 900 420 / 420 Other: Date of Last Bowel Movement 07/02/18 07/02/18 07/03/18 # Bowel Movements 1 Narrative: Physical exam GENERAL: MAL-nourished, well-developed patient. SKIN: Warm and dry. HEAD: Normocephalic. EYES: No scleral icterus. No injection or drainage. Accupril reactive to light blood right slightly dilated than the left NECK: Supple, there is a bag on the left side of the neck CARDIOVASCULAR: Tachycardia RESPIRATORY: Breath sounds equal bilaterally. No accessory muscle use. GASTROINTESTINAL: Abdomen soft, non-tender, nondistended. 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
[2018-07-03 10:48] LABS: Platelet Morphology Normal (Normal)
[2018-07-03 10:49] LABS: Albumin 2.6 g/dL (3.4-5.0); Anion Gap 8 meq/L (5-15); Aspartate Aminotransferase 592 U/L (15-37); Blood Urea Nitrogen 24 mg/dL (7-18); Calcium 8.6 mg/dL (8.5-10.1); Chloride 104 meq/L (98-107); Glomerular Filtration Rate Greater Than 89 mL/min (>89); Glucose,Random 102 mg/dL (74-106); Magnesium 1.9 mg/dL (1.5-2.5); Sodium 147 meq/L (136-145)
[2018-07-03 10:57] LABS: Creatine Kinase 7418 U/L (39-308)
[2018-07-03 10:58] LABS: Phosphorus 2.1 mg/dL (2.5-4.9); Total Protein 6.3 g/dL (6.4-8.2)
--- NOTE | 2018-07-03 11:12 | P.PNCA ---
Subjective Interval history: Patient denies any CP, pressure, palpitations, dizziness, edema or shortness of breath. Medications and Allergies Allergies Allergy/AdvReac Type Severity Reaction Status Date / Time codeine Allergy Severe Hives Unverified 06/30/18 10:28 tramadol Allergy Severe seizure Unverified 08/04/17 18:49 cyclobenzaprine Allergy Unknown Unresponsiv Verified 06/30/18 10:28 e fluvoxamine Allergy Unknown Unresponsiv Verified 06/30/18 10:28 e zolpidem Allergy Unknown Unconscious Verified 06/30/18 10:28 Beta-Blockers Allergy Anaphylaxis Verified 06/30/18 10:28 (Beta-Adrenergic Bloc MRI PRECAUTION AdvReac Severe NON REVO Uncoded 08/04/17 18:49 PACEMAKER Home Medications Medication Instructions Recorded Confirmed Type albuterol sulfate [Proventil HFA] INHALATION Q3-4H PRN 06/30/18 History fentanyl 1 patch TRANSDERMAL Q72H 06/30/18 06/30/18 History gabapentin 300 mg PO TID 06/30/18 06/30/18 History levetiracetam [Keppra] 750 mg PO BID 06/30/18 06/30/18 History levothyroxine [Synthroid] 75 mcg PO DAILY 06/30/18 06/30/18 History lorazepam [Ativan] 1 mg PO BID 06/30/18 06/30/18 History morphine 15 mg PO Q4-6H PRN 06/30/18 06/30/18 History quetiapine [Seroquel] 400 mg PO BID 06/30/18 06/30/18 History Active Medications: Active Medications Al Hydroxide/Mg Hydroxide (Milk Of Guillermo Limarco) 30 ml PO Q12H PRN PRN Reason: Mild Constipation Albuterol (Duoneb Neb (Prn)) 1 ampul NEB Q2HR NEB PRN PRN Reason: WHEEZING Albuterol (Duoneb Neb (Felipa)) 1 ampul NEB Q4HR NEB [facility] Last Admin: 07/03/18 07:58 Dose: Not Given Bisacodyl (Dulcolax Supp) 10 mg RECTAL DAILY PRN PRN Reason: SEVERE CONSITIPATION Chlorhexidine Gluconate (Chlorhexidine 2% Cloth) 3 pack TOPICAL DAILY@0400 [facility] Stop: 07/06/18 03:59 Last Admin: 07/03/18 04:17 Dose: 3 pack Chlorhexidine Gluconate (Chlorhexidine 2% Cloth) 3 pack TOPICAL DAILY@0400 PRN PRN Reason: Extra cloth needed Stop: 07/06/18 03:59 Dextrose (D50w Vial) 50 ml IV.PUSH UNSCH PRN PRN Reason: PER HYPOGLYCEMIA PROTOCOL Gabapentin (Neurontin) 300 mg PO TID [facility] Last Admin: 07/03/18 08:01 Dose: 300 mg Glucagon (Glucagon Inj) 1 mg OTHER PRN PRN PRN Reason: for Hypoglycemia Protocol Hydrocortisone Sodium Succinate (Solucortef Inj) 100 mg IV.PUSH Q8HR [facility] Last Admin: 07/03/18 05:04 Dose: 100 mg Vancomycin HCl 1,000 mg/ (Sodium Chloride) 250 mls @ 250 mls/hr IV.SIG PECAN PICKER [facility] Last Admin: 07/03/18 10:15 Dose: 250 mls/hr Levetiracetam 500 mg/ Sodium (Chloride) 105 mls @ 400 mls/hr IV.SIG Q12H [facility] Last Infusion: 07/03/18 03:15 Dose: Infused Piperacillin/Tazobactam/Dextrose (Zosyn 2.25 Gm Premix) 50 mls @ 100 mls/hr IV.SIG Q8H [facility] Last Infusion: 07/03/18 05:10 Dose: Infused Magnesium Sulfate 4 gm/ Sodium (Chloride) 100 mls @ 50 mls/hr IV.SIG UNSCH PRN PRN Reason: For Magnesium 0.9 - 1.1 mg/dL Magnesium Sulfate 2 gm/ Sodium (Chloride) 100 mls @ 50 mls/hr IV.SIG UNSCH PRN PRN Reason: For Magnesium 1.2 - 1.6 mg/dL Potassium Chloride (Kcl 40 Meq Premix Inj) 40 meq in 100 mls @ 25 mls/hr IV.SIG Q2H PRN PRN Reason: For Potassium 2.8 - 3.2 mEq/L Potassium Chloride (Kcl 20 Meq Premix Inj) 20 meq in 100 mls @ 50 mls/hr IV.SIG Q2H PRN PRN Reason: For Potassium 3.3 - 3.5 mEq/L Last Infusion: 07/03/18 09:53 Dose: Infused Potassium Chloride (Kcl 40 Meq Premix Inj) 40 meq in 100 mls @ 25 mls/hr IV.SIG UNSCH PRN PRN Reason: For Potassium 3.3 - 3.5 mEq/L Potassium Chloride (Kcl 20 Meq Premix Inj) 20 meq in 100 mls @ 50 mls/hr IV.SIG Q2H PRN PRN Reason: For Potassium 2.8 - 3.2 mEq/L Last Infusion: 07/02/18 16:00 Dose: Infused Sodium Phosphate 30 mmol/ (Sodium Chloride) 260 mls @ 42 mls/hr IV.SIG UNSCH PRN PRN Reason: For Phosphorus < 2.5 mg/dL Potassium Phosphate 30 mmol/ (Sodium Chloride) 260 mls @ 42 mls/hr IV.SIG UNSCH PRN PRN Reason: SEE LABEL COMMENTS Dextrose/Sodium Chloride (D5w/Normal Saline Inj) 1,000 mls @ 75 mls/hr IV.CONT .[id number] [facility] Last Admin: 07/02/18 23:42 Dose: 75 mls/hr Vancomycin HCl 1,000 mg/ (Sodium Chloride) 250 mls @ 250 mls/hr IV.SIG Q12H [facility] Last Infusion: 07/03/18 01:15 Dose: Infused Magnesium Sulfate 4 gm/ Sodium (Chloride) 100 mls @ 50 mls/hr IV.SIG UNSCH PRN PRN Reason: For Magnesium 0.9 - 1.1 mg/dL Magnesium Sulfate 2 gm/ Sodium (Chloride) 100 mls @ 50 mls/hr IV.SIG UNSCH PRN PRN Reason: For Magnesium 1.2 - 1.6 mg/dL Potassium Chloride (Kcl 40 Meq Premix Inj) 40 meq in 100 mls @ 25 mls/hr IV.SIG Q2H PRN PRN Reason: For Potassium 2.8 - 3.2 mEq/L Potassium Chloride (Kcl 40 Meq Premix Inj) 40 meq in 100 mls @ 25 mls/hr IV.SIG UNSCH PRN PRN Reason: For Potassium 3.3 - 3.5 mEq/L Potassium Chloride (Kcl 20 Meq Premix Inj) 20 meq in 100 mls @ 50 mls/hr IV.SIG Q2H PRN PRN Reason: For Potassium 2.8 - 3.2 mEq/L Potassium Phosphate 30 mmol/ (Sodium Chloride) 260 mls @ 42 mls/hr IV.SIG UNSCH PRN PRN Reason: SEE LABEL COMMENTS Sodium Phosphate 30 mmol/ (Sodium Chloride) 260 mls @ 42 mls/hr IV.SIG UNSCH PRN PRN Reason: For Phosphorus < 2.5 mg/dL Potassium Chloride (Kcl 20 Meq Premix Inj) 20 meq in 100 mls @ 50 mls/hr IV.SIG Q2H PRN PRN Reason: For Potassium 3.3 - 3.5 mEq/L Insulin Human Regular (Novolin R Correctional Sugar Inj) 0 units SQ Q4HR [facility]; Protocol Last Admin: 07/03/18 08:01 Dose: Not Given Lactulose (Lactulose Liq) 30 ml PO DAILY PRN PRN Reason: SEVERE CONSITIPATION Magnesium Oxide (Mag-Ox) 800 mg PO UNSCH PRN PRN Reason: For Magnesium 1.2 - 1.6 mg/dL Magnesium Oxide (Mag-Ox) 800 mg PO UNSCH PRN PRN Reason: For Magnesium 1.2 - 1.6 mg/dL Miscellaneous Information ([facility] [place] [facility] Ordered Lab Info) 0 each OTHER ONCE ONE Stop: 07/03/18 22:46 Morphine Sulfate (Morphine Inj) 2 mg IV.PUSH Q4H PRN PRN Reason: PAIN SCALE 3 TO 5 Last Admin: 07/03/18 07:59 Dose: 2 mg Pantoprazole Sodium (Protonix Inj) 40 mg IV.PUSH DAILY [facility] Last Admin: 07/03/18 08:01 Dose: 40 mg Pharmacy Profile Note (Vancomycin Consult Pharmacy) 1 each OTHER UNSCH PRN PRN Reason: Pharmacy to dose Potassium Bicarb/Potassium Chloride (K-Lyte Cl Eff) 50 meq PO UNSCH PRN PRN Reason: For Potassium 3.3 - 3.5 mEq/L Last Admin: 07/02/18 21:39 Dose: 50 meq Potassium Bicarb/Potassium Chloride (K-Lyte Cl Eff) 50 meq PO UNSCH PRN PRN Reason: For Potassium 3.3 - 3.5 mEq/L Potassium Phosphate (K-Phos Original) 2,000 mg PO Q4H PRN PRN Reason: Phosphorus Less Than 2.5 mg/dL Potassium Phosphate (K-Phos Original) 2,000 mg PO UNSCH PRN PRN Reason: SEE LABEL COMMENTS Potassium Phosphate (K-Phos Original) 2,000 mg PO Q4H PRN PRN Reason: Phosphorus Less Than 2.5 mg/dL Potassium Phosphate (K-Phos Original) 2,000 mg PO UNSCH PRN PRN Reason: SEE LABEL COMMENTS Sennosides (Senokot) 17.2 mg PO Q12H PRN PRN Reason: Moderate Constipation Sodium Chloride (Ns Flush) 2 ml IV.FLUSH PRN PRN PRN Reason: FLUSH AFTER USING IV ACCESS Physical Exam Vital signs: Vital Signs 07/02/18 11:30 07/02/18 12:00 07/02/18 12:30 Temperature 98.4 F Pulse Rate 60 60 60 Respiratory Rate 11 L 13 12 Blood Pressure 123/68 128/70 128/78 Pulse Oximetry 99 99 99 07/02/18 13:00 07/02/18 13:30 07/02/18 14:00 Temperature Pulse Rate 60 62 60 Respiratory Rate 16 20 20 Blood Pressure 122/71 119/65 119/68 Pulse Oximetry 100 97 100 07/02/18 14:30 07/02/18 15:00 07/02/18 15:06 Temperature Pulse Rate 60 60 60 Respiratory Rate 13 25 H 18 Blood Pressure 120/74 127/73 Pulse Oximetry 100 100 100 07/02/18 15:30 07/02/18 15:48 07/02/18 16:00 Temperature 98.2 F Pulse Rate 62 60 60 Respiratory Rate 23 17 8 L Blood Pressure 119/67 128/80 Pulse Oximetry 100 100 07/02/18 16:30 07/02/18 17:00 07/02/18 17:30 Temperature Pulse Rate 78 60 68 Respiratory Rate 10 L 16 23 Blood Pressure 115/66 120/69 105/52 L Pulse Oximetry 97 99 98 07/02/18 18:00 07/02/18 18:30 07/02/18 19:00 Temperature Pulse Rate 60 60 60 Respiratory Rate 14 20 17 Blood Pressure 103/57 L 117/66 128/78 Pulse Oximetry 100 100 99 07/02/18 19:20 07/02/18 19:30 07/02/18 20:00 Temperature 98.6 F Pulse Rate 60 60 68 Respiratory Rate 16 19 24 Blood Pressure 120/67 116/65 Pulse Oximetry 100 100 100 07/02/18 20:29 07/02/18 21:00 07/02/18 21:56 Temperature Pulse Rate 60 60 60 Respiratory Rate 28 H 12 9 L Blood Pressure 116/65 119/73 Pulse Oximetry 100 100 99 07/02/18 22:00 07/02/18 22:30 07/02/18 23:00 Temperature Pulse Rate 60 60 60 Respiratory Rate 13 23 23 Blood Pressure 116/70 112/65 135/81 Pulse Oximetry 99 100 100 07/02/18 23:30 07/03/18 00:00 07/03/18 00:30 Temperature 98.6 F Pulse Rate 59 L 60 63 Respiratory Rate 15 18 24 Blood Pressure 134/81 135/85 132/75 Pulse Oximetry 98 100 100 07/03/18 01:00 07/03/18 01:30 07/03/18 02:00 Temperature Pulse Rate 59 L 61 62 Respiratory Rate 16 21 15 Blood Pressure 137/79 130/75 131/82 Pulse Oximetry 98 99 100 07/03/18 02:30 07/03/18 03:00 07/03/18 03:30 Temperature Pulse Rate 60 60 59 L Respiratory Rate 19 3 L 18 Blood Pressure 132/82 127/76 134/78 Pulse Oximetry 100 99 99 07/03/18 04:00 07/03/18 04:30 07/03/18 05:00 Temperature 98.6 F Pulse Rate 60 60 60 Respiratory Rate 16 19 22 Blood Pressure 133/82 134/82 137/85 Pulse Oximetry 98 99 99 07/03/18 05:30 07/03/18 06:00 07/03/18 06:30 Temperature Pulse Rate 60 60 66 Respiratory Rate 16 12 32 H Blood Pressure 139/82 143/86 H 138/66 Pulse Oximetry 98 99 100 07/03/18 07:00 07/03/18 07:30 07/03/18 07:57 Temperature Pulse Rate 61 60 Respiratory Rate 23 26 H Blood Pressure 149/84 H 143/86 H Pulse Oximetry 100 100 100 07/03/18 08:00 07/03/18 08:47 07/03/18 09:00 Temperature 99.0 F Pulse Rate 60 60 61 Respiratory Rate 25 H 26 H 23 Blood Pressure 143/88 H 138/85 154/90 H Pulse Oximetry 100 100 100 Intake & Output 07/02/18 07/03/18 07/03/18 18:59 06:59 18:59 Intake Total 1124 / 1124 1906 / 1906 0 / 0 Output Total 900 / 900 420 / 420 Balance 224 / 224 1486 / 1486 0 / 0 Weight 77.5 kg Intake: IV 605 / 605 1655 / 1655 0 / 0 D5W/Normal Saline Inj 1,000 ML 1000 / 1000 @ 75 mls/hr IV.CONT .[id number] [facility] Rx#:[id number] Zosyn 2.25 GM Premix 50 ML @ 50 / 50 100 / 100 100 mls/hr IV.SIG Q8H [facility] Rx#: [id number] KCl 20 mEq Premix Inj 20 meq In 200 / 200 200 / 200 0 / 0 100 ml @ 50 mls/hr IV.SIG Q2H [facility]N Rx#:[id number] Vancomycin Inj 1,000 MG In NS 250 / 250 250 / 250 Inj 250 ML @ 250 mls/hr IV.SIG Q12H [facility] Rx#:[id number] Keppra Inj 500 MG In NS Inj 100 105 / 105 105 / 105 ML @ 400 mls/hr IV.SIG Q12H [facility] Rx#:[id number] Tube Feeding 399 / 399 251 / 251 Tube Irrigant 120 / 120 Output: Urine 900 / 900 420 / 420 Other: Date of Last Bowel Movement 07/02/18 07/02/18 07/03/18 # Bowel Movements 1 - Constitutional no acute distress - Routine HEENT Exam Head: Present: normocephalic Eye: Present: EOMI ENT: Present: mucous membranes moist - Routine Neck Exam Present: full ROM - Routine Respiratory Exam Present: CTA bilaterally - Routine Cardiovascular Exam Present: S1, S2. Absent: murmur, gallop, rubs - Routine Abdominal Exam Present: normoactive bowel sounds - Routine Extremities Exam Present: full ROM, pulses intact, normal capillary refill. Absent: cyanosis, clubbing, edema - Routine Skin Exam Present: intact - Routine Neurological Exam Present: oriented X3 - Detailed Neurological Exam: Coma Scale Eye Opening: Spontaneous Verbal Response: Oriented Motor Response: Obey commands Dolly Coma Scale Total: 15 - Routine Psychiatric Exam Present: normal affect Results 07/03/18 08:49 07/03/18 08:49 Cardiac Enzymes 07/02/18 07/03/18 Range/Units 04:53 08:49 AST 723 H 592 H (15-37) U/L CK-MB (CK-2) 30.3 H (0.5-3.6) ng/mL CBC 07/02/18 07/03/18 Range/Units 04:53 08:49 WBC 6.9 4.1 (4.0-11.0) th/mm3 RBC 3.36 L 3.54 L (4.50-5.90) mil/mm3 Hgb 11.1 L D 11.6 L (13.0-17.0) gm/dL Hct 31.1 L 33.6 L (39.0-51.0) % Plt Count 56 L 51 L (150-450) th/mm3 Neut # (Auto) 6.3 3.6 (1.8-7.7) th/mm3 Lymph # (Auto) 0.3 L 0.3 L (1.0-4.8) th/mm3 [place] # (Auto) 0.3 0.2 (0.0-0.9) th/mm3 Eos # (Auto) 0.0 0.0 (0.0-0.4) th/mm3 Baso # (Auto) 0.0 0.0 (0.0-0.2) th/mm3 Comprehensive Metabolic Panel 07/02/18 07/02/18 07/03/18 Range/Units 04:53 18:23 08:49 Sodium 142 147 H (136-145) meq/L Potassium 2.2 L* D 2.6 L* 3.0 L (3.5-5.1) meq/L Chloride 98 104 (98-107) meq/L Carbon Dioxide 37.0 H D 35.0 H (21.0-32.0) meq/L BUN 25 H 24 H (7-18) mg/dL Creatinine 0.93 0.82 (0.60-1.30) mg/dL Calcium 7.0 L* 8.6 D (8.5-10.1) mg/dL AST 723 H 592 H (15-37) U/L ALT 276 H (12-78) U/L Alkaline Phosphatase 122 H (45-117) U/L Total Protein 5.4 L D 6.3 L D (6.4-8.2) g/dL Albumin 2.1 L D 2.6 L (3.4-5.0) g/dL Intake and Output 07/02/18 07/03/18 07/03/18 22:59 06:59 14:59 Intake Total 2074 / 2074 856 / 856 0 / 0 Output Total 900 / 900 420 / 420 Balance 1174 / 1174 436 / 436 0 / 0 Intake: IV 1555 / 1555 605 / 605 0 / 0 D5W/Normal Saline Inj 1,000 ML 1000 / 1000 @ 75 mls/hr IV.CONT .[id number] [facility] Rx#:[id number] Zosyn 2.25 GM Premix 50 ML @ 100 / 100 50 / 50 100 mls/hr IV.SIG Q8H [facility] Rx#: [id number] KCl 20 mEq Premix Inj 20 meq In 100 / 100 200 / 200 0 / 0 100 ml @ 50 mls/hr IV.SIG Q2H [facility] Rx#:[id number] Vancomycin Inj 1,000 MG In NS 250 / 250 250 / 250 Inj 250 ML @ 250 mls/hr IV.SIG Q12H [facility] Rx#:[id number] Keppra Inj 500 MG In NS Inj 100 105 / 105 105 / 105 ML @ 400 mls/hr IV.SIG Q12H [facility] Rx#:[id number] Tube Feeding 399 / 399 251 / 251 Tube Irrigant 120 / 120 Output: Urine 900 / 900 420 / 420 Other: Date of Last Bowel Movement 07/02/18 07/02/18 07/03/18 # Bowel Movements 1 Weight 77.5 kg - Imaging and Cardiology Imaging: Impressions Cervical Spine CT 07/02/18 00:00 CONCLUSION: 1. No acute bony abnormalities within the cervical spine. No canal stenosis identified. 2. Soft tissue swelling of the left neck with small radiopaque foreign bodies in the subcutaneous tissues and locules of air, possibly related to fistulous tract. Thoracic Spine CT 07/02/18 00:00 CONCLUSION: 1. Mild kyphosis. 2. Mild loss of height of several lower thoracic vertebral bodies, stable. 3. No acute compression fracture. Head CT 07/02/18 14:12 CONCLUSION: 1. Stable negative noncontrast CT. . 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 [employer] evaluated his pacemaker yesterday. Pacemaker is MRI compatible and functioning normally. Proceed with MRI as planned this PM. We will continue to monitor patient during his hospitalization We will continue with current cardiac treatment plan. The patient was seen and evaluated by Dr. Robledo who participated in decision making. - Attending Attestation Patient seen and examined. I reviewed and agree with the evaluation and plan as presented. His [employer] pacemaker is MRI compatible. Proceed with MRI as planned today.
[2018-07-03 11:28] LABS: CKMB Percent 0.2 % (0.0-4.0); Creatine Kinase MB 11.5 ng/mL (0.5-3.6)
[2018-07-03] MEDS: Vancomycin Inj 1,000 MG in Sodium Chlor 0.9% Inj 250 ML IV.SIG SCH (11:29)
--- NOTE | 2018-07-03 11:36 | P.PNCC ---
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 He presented to [facility] ED with altered mental status. The patient lives in a motel and when his mom tried to contact him and he did not answer the phone, she subsequently called EMS and on arrival, they found him confused, mumbling, he was hypoglycemic with a blood sugar in the 40s. The patient was given dextrose which improved his blood sugar to the 80s. On arrival to the ER , he was tachycardic, hypotensive, with a systolic blood pressure in the 90s. His urine drug screen was positive for opiates and amphetamines. His laboratory data significant for renal failure with a creatinine 3.87, with lactic acidosis, lactic acid level 4.5. The patient also had elevated liver enzymes with AST 598, ALT 215, total bilirubin 0.6. There is no evidence of any fever; however, he had leukocytosis with a WBC of 15.1. Due to altered mental status, a CT scan of the brain was obtained which showed no acute intracranial findings. A chest x-ray in the ED showed minimal left basilar airspace disease. In the ED, he was given 2 liters of crystalloids, vancomycin and Zosyn. The patient was hospitalized in [facility] back in October for Boerhaave syndrome and underwent a spit fistula esophagectomy. His hospital course was complicated by respiratory failure requiring intubation , septic shock, acute renal failure, rhabdomyolysis, on hemodialysis for 3 weeks. According to the patient's mother who is a nurse, he also had seizure type activity about 10 days ago and he initially went to [facility]; however, she transferred him to [facility] where he was discharged approximately 1 week ago. The patient has a J-tube in place. He is currently on 3 liter oxygen with saturations 97%. Current blood pressure 117/64 , pulse IV hydration. 07/01 No events overnight. Awake and alert. Afebrile. Renal function is improving with Cr: 2.04 from from 3.87 on arrival. On bicarb drip. 07/02 Patient is awake and alert lying in bed in NAD. Afebrile. Renal function continue to improve Cr: 0.93 from 2.04, CK's trending down. 07/03: Lying in bed not in any distress. Renal function is improved. Potassium is 3 getting replaced. WBC count has normalized, CK trending down in 7000s today. Will increase the Zosyn dose as the renal function has normalized Objective Vital Signs / I&O: Vital Signs 07/02/18 12:00 07/02/18 12:30 07/02/18 13:00 Temperature 98.4 F Pulse Rate 60 60 60 Respiratory Rate 13 12 16 Blood Pressure 128/70 128/78 122/71 Pulse Oximetry 99 99 100 07/02/18 13:30 07/02/18 14:00 07/02/18 14:30 Temperature Pulse Rate 62 60 60 Respiratory Rate 20 20 13 Blood Pressure 119/65 119/68 120/74 Pulse Oximetry 97 100 100 07/02/18 15:00 07/02/18 15:06 07/02/18 15:30 Temperature Pulse Rate 60 60 62 Respiratory Rate 25 H 18 23 Blood Pressure 127/73 119/67 Pulse Oximetry 100 100 100 07/02/18 15:48 07/02/18 16:00 07/02/18 16:30 Temperature 98.2 F Pulse Rate 60 60 78 Respiratory Rate 17 8 L 10 L Blood Pressure 128/80 115/66 Pulse Oximetry 100 97 07/02/18 17:00 07/02/18 17:30 07/02/18 18:00 Temperature Pulse Rate 60 68 60 Respiratory Rate 16 23 14 Blood Pressure 120/69 105/52 L 103/57 L Pulse Oximetry 99 98 100 07/02/18 18:30 07/02/18 19:00 07/02/18 19:20 Temperature Pulse Rate 60 60 60 Respiratory Rate 20 17 16 Blood Pressure 117/66 128/78 Pulse Oximetry 100 99 100 07/02/18 19:30 07/02/18 20:00 07/02/18 20:29 Temperature 98.6 F Pulse Rate 60 68 60 Respiratory Rate 19 24 28 H Blood Pressure 120/67 116/65 116/65 Pulse Oximetry 100 100 100 07/02/18 21:00 07/02/18 21:56 07/02/18 22:00 Temperature Pulse Rate 60 60 60 Respiratory Rate 12 9 L 13 Blood Pressure 119/73 116/70 Pulse Oximetry 100 99 99 07/02/18 22:30 07/02/18 23:00 07/02/18 23:30 Temperature Pulse Rate 60 60 59 L Respiratory Rate 23 23 15 Blood Pressure 112/65 135/81 134/81 Pulse Oximetry 100 100 98 07/03/18 00:00 07/03/18 00:30 07/03/18 01:00 Temperature 98.6 F Pulse Rate 60 63 59 L Respiratory Rate 18 24 16 Blood Pressure 135/85 132/75 137/79 Pulse Oximetry 100 100 98 07/03/18 01:30 07/03/18 02:00 07/03/18 02:30 Temperature Pulse Rate 61 62 60 Respiratory Rate 21 15 19 Blood Pressure 130/75 131/82 132/82 Pulse Oximetry 99 100 100 07/03/18 03:00 07/03/18 03:30 07/03/18 04:00 Temperature 98.6 F Pulse Rate 60 59 L 60 Respiratory Rate 3 L 18 16 Blood Pressure 127/76 134/78 133/82 Pulse Oximetry 99 99 98 07/03/18 04:30 07/03/18 05:00 07/03/18 05:30 Temperature Pulse Rate 60 60 60 Respiratory Rate 19 22 16 Blood Pressure 134/82 137/85 139/82 Pulse Oximetry 99 99 98 07/03/18 06:00 07/03/18 06:30 07/03/18 07:00 Temperature Pulse Rate 60 66 61 Respiratory Rate 12 32 H 23 Blood Pressure 143/86 H 138/66 149/84 H Pulse Oximetry 99 100 100 07/03/18 07:30 07/03/18 07:57 07/03/18 08:00 Temperature 99.0 F Pulse Rate 60 60 Respiratory Rate 26 H 25 H Blood Pressure 143/86 H 143/88 H Pulse Oximetry 100 100 100 07/03/18 08:47 07/03/18 09:00 Temperature Pulse Rate 60 61 Respiratory Rate 26 H 23 Blood Pressure 138/85 154/90 H Pulse Oximetry 100 100 Intake & Output 07/02/18 07/03/18 07/03/18 18:59 06:59 18:59 Intake Total 1124 / 1124 1906 / 1906 0 / 0 Output Total 900 / 900 420 / 420 Balance 224 / 224 1486 / 1486 0 / 0 Weight 77.5 kg Intake: IV 605 / 605 1655 / 1655 0 / 0 D5W/Normal Saline Inj 1,000 ML 1000 / 1000 @ 75 mls/hr IV.CONT .[id number] [facility] Rx#:[id number] Zosyn 2.25 GM Premix 50 ML @ 50 / 50 100 / 100 100 mls/hr IV.SIG Q8H [facility] Rx#: [id number] KCl 20 mEq Premix Inj 20 meq In 200 / 200 200 / 200 0 / 0 100 ml @ 50 mls/hr IV.SIG Q2H PRN Rx#:[id number] Vancomycin Inj 1,000 MG In NS 250 / 250 250 / 250 Inj 250 ML @ 250 mls/hr IV.SIG Q12H [facility] Rx#:[id number] Keppra Inj 500 MG In NS Inj 100 105 / 105 105 / 105 ML @ 400 mls/hr IV.SIG Q12H [facility] Rx#:[id number] Tube Feeding 399 / 399 251 / 251 Tube Irrigant 120 / 120 Output: Urine 900 / 900 420 / 420 Other: Date of Last Bowel Movement 07/02/18 07/02/18 07/03/18 # Bowel Movements 1 Result Diagrams: 07/03/18 08:49 07/03/18 08:49 Objective Remarks: GENERAL: Patient is 32yo lying in be bed NAD SKIN: Warm and dry. HEAD: Normocephalic. EYES: No scleral icterus. No injection or drainage. NECK: Supple, trachea midline. No JVD or lymphadenopathy.esophageal ostomy to neck bag CARDIOVASCULAR: Tachycardic without murmurs, gallops, or rubs. RESPIRATORY: Breath sounds equal bilaterally. No accessory muscle use. GASTROINTESTINAL: Abdomen soft, non-tender, nondistended. +J-tube in place MUSCULOSKELETAL: No cyanosis, or edema Neuro: Awake and alert. No focal deficits complains of pain Assessment and Plan - Assessment and Plan Plan: ASSESSMENT Altered mental status-resolved Status post hypoglycemic episode. Adrenal insufficiency. Acute renal failure, Rhabdo Lactic acidemia. Elevated liver enzymes. Leukocytosis with bandemia. Seizure disorder. Left basilar airspace disease. History of pituitary dysfunction. History of Boerhaave syndrome with spit fistula esophagectomy. Previous J-tube placement. Pacemaker secondary to bradycardia. Hep C Plan Neuro: Awake and alert. Monitor neuro status . CT brain showed no intracranial findings. UDS: amphetamines and opiates. Continue Keppra and gabapentin. Ativan 1 mg IV every 4hours p.r.n. for seizures. Neuro is following. For EEG and MRI today. [employer] to reset pacemaker prior to MRI. morphine 2mg Q4PRN pain Pulm: Continue with oxygen and maintain sats >92%. Bronchodilators. CXR: Minimal left basilar airspace disease CV: Monitor HR and BP and maintain MAP> 65 mmHg. Lactic acid cleared : Monitor renal function, I's and O's, electrolytes replacement per protocol. Renal function is improving with Cr: 0.93 today from 2.04 Renal is following. D5NS@75ml/hr, monitor CK's. ( trending down) US abdomen: medical renal disease. Hepatosplenomegaly GI: Monitor LFT's ( trending down) Hepatitis profile: + Hep C Ig ab US abdomen: Hepatosplenomegaly On Protonix 40 mg IV daily for GI prophylaxis. Continue tube feeds via J-tube change to [place] with goal rate 70ml/hr. good nutrition recommendation ID: Given vancomycin and Zosyn in the ER. Continue Zosyn, add Vanco, monitor for signs of infection. Afebrile and WBC is trending down blood culture: NGTD, Wound cx: [place], MRSA, Tamika Endo: On hydrocortisone 100 mg IV every 8 hours and D5NS for hypoglycemic episodes-reduce to 50 mg every 8 Accu-Chek every 4 hours f. TSH: 0.289 Heme: Monitor CBC and coags. GI prophylaxis- Protonix 40 mg daily DVT prophylaxis- SCD, not on AC prophylaxis due to thrombocytopenia ( PLT 51 today) Level 2 Consult hospitalist to assume care in a.m. Transfer to [facility] with telemetry
[2018-07-03] MEDS: Potassium Chlor 20 mEq Premix 20 MEQ/100 ML PIGGYBACK IV.SIG PRN ×3 (11:37→21:20)
[2018-07-03] MEDS ORDERED: FENTANYL T-DERMAL SCH (11:45)
[2018-07-03 12:14] LABS: Alanine Aminotransferase 336 U/L (12-78); Alkaline Phosphatase 116 U/L (45-117)
[2018-07-03] MEDS: Dextrose 5%/NaCl 0.9% Inj 1,000 ML IV.CONT SCH (13:07)
--- NOTE | 2018-07-03 16:20 | MR ---
EXAM DATE: 07/03/2018 4:15 PM EST AGE/SEX: 32 years / Male INDICATIONS: . Left arm and right leg weakness. CLINICAL DATA: This is the patient's sequela encounter. Patient reports that signs and symptoms have been present for 7 - 11 months and indicates a pain score of 0/10. MEDICAL/SURGICAL HISTORY: Seizures. Hepatitis C. adrenal insufficiency . pacemaker [facility] [employer], e sophagectomy COMPARISON: [facility] [place]/O [place]AST, 07/02/2018. . TECHNIQUE: Multiplanar, multisequence examination of the brain was performed without contrast. FINDINGS: Cerebrum: The ventricles are normal for age. No evidence of midline shift, mass lesion, hemorrhage or acute infarction. No extraaxial fluid collections are seen. The pituitary gland and suprasellar cistern are normal in configuration. White Matter: No significant signal abnormalities are seen in the white matter. Posterior Fossa: The cerebellum and brainstem are intact. The 4th ventricle is midline. The cerebel lopontine angle is unremarkable. The cerebellar tonsils are normal in position. Diffusion Imaging: No focal areas of restricted diffusion are seen. No evidence of acute infarction . Extracranial: The visualized portions of the orbits and paranasal sinuses are unremarkable. CONCLUSION: 1. Unremarkable MRI of the brain. Electronically signed by: Ruben Bautista MD 07/03/2018 4:19 PM EST
--- NOTE | 2018-07-03 16:25 | MR ---
EXAM DATE: 07/03/2018 4:18 PM EST AGE/SEX: 32 years / Male INDICATIONS: . Left arm and right leg weakness. CLINICAL DATA: This is the patient's sequela encounter. Patient reports that signs and symptoms have been present for 7 - 11 months and indicates a pain score of 0/10. MEDICAL/SURGICAL HISTORY: Seizures. Hepatitis C. . pacemaker, esophagectomy [place] [facility] [place], 07/02/2018. . TECHNIQUE: Multiplanar, multisequence MRI of the thoracic spine was performed. FINDINGS: Vertebrae: There is normal signal throughout the thoracic vertebral bodies. There is some mild chron ic loss of height of T9, T10 and T11. No abnormal bone marrow edema is demonstrated. There is mild ky phosis of the thoracic spine. Alignment: No spondylolisthesis is demonstrated. There is disc space narrowing at T3-T4, T4-T5 T5-T6 and T6-T7. Cord: Normal position and configuration. T1-T2: The thecal sac has a normal diameter. No evidence of disc bulge or protrusion. T2-T3: The thecal sac has a normal diameter. No evidence of disc bulge or protrusion. T3-T4: The thecal sac has a normal diameter. No evidence of disc bulge or protrusion. T4-T5: The thecal sac has a normal diameter. No evidence of disc bulge or protrusion. T5-T6: The thecal sac has a normal diameter. No evidence of disc bulge or protrusion. T6-T7: The thecal sac has a normal diameter. No evidence of disc bulge or protrusion. T7-T8: The thecal sac has a normal diameter. No evidence of disc bulge or protrusion. T8-T9: The thecal sac has a normal diameter. No evidence of disc bulge or protrusion. T9-T10: The thecal sac has a normal diameter. No evidence of disc bulge or protrusion. T10-T11: The thecal sac has a normal diameter. Mild broad-based bulging. The neural foramina are pat ent.. T11-T12: The thecal sac has a normal diameter. No evidence of disc bulge or protrusion. T12-L1: The thecal sac has a normal diameter. No evidence of disc bulge or protrusion. CONCLUSION: 1. Mild broad-based bulging at T10-T11. 2. Mild disc space narrowing from T3 through T7. 3. Mild chronic loss of height of T9, T10 and T11. No abnormal bone marrow signal. Electronically signed by: Ruben Bautista MD 07/03/2018 4:24 PM EST
--- NOTE | 2018-07-03 16:28 | MR ---
EXAM DATE: 07/03/2018 4:16 PM EST AGE/SEX: 32 years / Male INDICATIONS: . Left arm and right leg weakness. CLINICAL DATA: This is the patient's sequela encounter. Patient reports that signs and symptoms have been present for 7 - 11 months and indicates a pain score of 0/10. MEDICAL/SURGICAL HISTORY: Hepatitis C. Seizures. . pacemaker [facility], esophagectomy COMPARISON: [facility] – [place], [place] CERVICAL SPINE W/O CONTRAST, 07/02/2018. . TECHNIQUE: Multiplanar, multisequence MRI examination of the cervical spine was performed without co ntrast. FINDINGS: Vertebrae: Normal vertebral body height. Homogeneous marrow signal. Alignment: Normal. Cord: Normal configuration and signal. Post Fossa: The cerebellar tonsils are normal in position. C2-C3: The thecal sac has a normal configuration. There is no evidence of disc herniation or spinal canal stenosis. The neural foramina are patent bilaterally. C3-C4: The thecal sac has a normal configuration. There is no evidence of disc herniation or spinal canal stenosis. The neural foramina are patent bilaterally. C4-C5: The thecal sac has a normal configuration. There is no evidence of disc herniation or spinal canal stenosis. The neural foramina are patent bilaterally. C5-C6: The thecal sac has a normal configuration. There is focal mild right lateral bulging. There i s mild narrowing of the right neural foramina. The left neural foramina is patent. C6-C7: The thecal sac has a normal configuration. There is no evidence of disc herniation or spinal canal stenosis. The neural foramina are patent bilaterally. C7-T1: No epidural impressions seen. CONCLUSION: 1. Focal mild right lateral bulging at C5-6. 2. Otherwise, unremarkable exam for patient's age. Electronically signed by: Ruben Bautista MD 07/03/2018 4:27 PM EST
[2018-07-03] MEDS: Piperacil/Tazo 3.375 GM Premix 50 ML IV.SIG SCH ×2 (17:03→21:20)
--- NOTE | 2018-07-03 17:42 | P.PNNEU ---
Subjective Subjective Comments: pt still weak RLE, LLE and LUE Active Medications: Active Medications Al Hydroxide/Mg Hydroxide (Milk Of Magnesia Liq) 30 ml PO Q12H PRN PRN Reason: Mild Constipation Albuterol (Duoneb Neb (Prn)) 1 ampul NEB Q2HR NEB PRN PRN Reason: WHEEZING Last Admin: 07/03/18 11:49 Dose: 1 ampul Albuterol (Duoneb Neb (Felipa)) 1 ampul NEB Q12HR NEB [facility] Bisacodyl (Dulcolax Supp) 10 mg RECTAL DAILY PRN PRN Reason: SEVERE CONSITIPATION Chlorhexidine Gluconate (Chlorhexidine 2% Cloth) 3 pack TOPICAL DAILY@0400 FELIPA Stop: 07/06/18 03:59 Last Admin: 07/03/18 04:17 Dose: 3 pack Chlorhexidine Gluconate (Chlorhexidine 2% Cloth) 3 pack TOPICAL DAILY@0400 PRN PRN Reason: Extra cloth needed Stop: 07/06/18 03:59 Dextrose (D50w Vial) 50 ml IV.PUSH UNSCH PRN PRN Reason: PER HYPOGLYCEMIA PROTOCOL Fentanyl (Duragesic 25 Mcg Patch.72hr) 1 patch T-DERMAL Q72H [facility] Last Admin: 07/03/18 13:07 Dose: 1 patch Gabapentin (Neurontin) 300 mg PO TID [facility] Last Admin: 07/03/18 17:04 Dose: 300 mg Glucagon (Glucagon Inj) 1 mg OTHER PRN PRN PRN Reason: for Hypoglycemia Protocol Hydrocortisone Sodium Succinate (Solucortef Inj) 50 mg IV.PUSH Q8HR [facility] Last Admin: 07/03/18 17:03 Dose: 50 mg Dextrose/Sodium Chloride (D5w/Normal Saline Inj) 1,000 mls @ 75 mls/hr IV.CONT .[id number] [facility] Last Admin: 07/03/18 13:07 Dose: 75 mls/hr Vancomycin HCl 1,000 mg/ (Sodium Chloride) 250 mls @ 250 mls/hr IV.SIG Q12H [facility] Last Infusion: 07/03/18 12:55 Dose: Infused Magnesium Sulfate 4 gm/ Sodium (Chloride) 100 mls @ 50 mls/hr IV.SIG UNSCH PRN PRN Reason: For Magnesium 0.9 - 1.1 mg/dL Magnesium Sulfate 2 gm/ Sodium (Chloride) 100 mls @ 50 mls/hr IV.SIG UNSCH PRN PRN Reason: For Magnesium 1.2 - 1.6 mg/dL Potassium Chloride (Kcl 40 Meq Premix Inj) 40 meq in 100 mls @ 25 mls/hr IV.SIG Q2H PRN PRN Reason: For Potassium 2.8 - 3.2 mEq/L Potassium Chloride (Kcl 40 Meq Premix Inj) 40 meq in 100 mls @ 25 mls/hr IV.SIG UNSCH PRN PRN Reason: For Potassium 3.3 - 3.5 mEq/L Potassium Chloride (Kcl 20 Meq Premix Inj) 20 meq in 100 mls @ 50 mls/hr IV.SIG Q2H PRN PRN Reason: For Potassium 2.8 - 3.2 mEq/L Potassium Phosphate 30 mmol/ (Sodium Chloride) 260 mls @ 42 mls/hr IV.SIG UNSCH PRN PRN Reason: SEE LABEL COMMENTS Sodium Phosphate 30 mmol/ (Sodium Chloride) 260 mls @ 42 mls/hr IV.SIG UNSCH PRN PRN Reason: For Phosphorus < 2.5 mg/dL Potassium Chloride (Kcl 20 Meq Premix Inj) 20 meq in 100 mls @ 50 mls/hr IV.SIG Q2H PRN PRN Reason: For Potassium 3.3 - 3.5 mEq/L Piperacillin/Tazobactam/Dextrose (Zosyn 3.375 Gm Premix) 50 mls @ 100 mls/hr IV.SIG Q6H FELIPA Last Admin: 07/03/18 17:03 Dose: 100 mls/hr Insulin Human Regular (Novolin R Correctional Sugar Inj) 0 units SQ Q4HR FELIPA; Protocol Last Admin: 07/03/18 17:03 Dose: Not Given Lactulose (Lactulose Liq) 30 ml PO DAILY PRN PRN Reason: SEVERE CONSITIPATION Levetiracetam (Keppra) 750 mg PO BID [facility] Levothyroxine Sodium (Synthroid) 75 mcg PO DAILY@0600 [facility] Magnesium Oxide (Mag-Ox) 800 mg PO UNSCH PRN PRN Reason: For Magnesium 1.2 - 1.6 mg/dL Miscellaneous Information ([facility] Ordered Lab Info) 0 each OTHER ONCE ONE Stop: 07/03/18 22:46 Morphine Sulfate (Morphine Inj) 2 mg IV.PUSH Q4H PRN PRN Reason: PAIN SCALE 3 TO 5 Last Admin: 07/03/18 11:37 Dose: 2 mg Morphine Sulfate (Msir) 15 mg PO Q4H PRN PRN Reason: PAIN SCALE 1 TO 10 Pantoprazole Sodium (Protonix Inj) 40 mg IV.PUSH DAILY [facility] Last Admin: 07/03/18 08:01 Dose: 40 mg Patch Removal (Remove Old Patch) 1 each T-DERMAL Q72H [facility] Last Admin: 07/03/18 13:29 Dose: Not Given Patch Removal (Remove Old Patch) 1 each T-DERMAL Q72H [facility] Last Admin: 07/03/18 13:30 Dose: Not Given Pharmacy Profile Note (Vancomycin Consult Pharmacy) 1 each OTHER UNSCH PRN PRN Reason: Pharmacy to dose Potassium Bicarb/Potassium Chloride (K-Lyte Cl Eff) 50 meq PO UNSCH PRN PRN Reason: For Potassium 3.3 - 3.5 mEq/L Potassium Phosphate (K-Phos Original) 2,000 mg PO Q4H PRN PRN Reason: Phosphorus Less Than 2.5 mg/dL Potassium Phosphate (K-Phos Original) 2,000 mg PO UNSCH PRN PRN Reason: SEE LABEL COMMENTS Quetiapine Fumarate (Seroquel) 400 mg PO BID [facility] Sennosides (Senokot) 17.2 mg PO Q12H PRN PRN Reason: Moderate Constipation Sodium Chloride (Ns Flush) 2 ml IV.FLUSH PRN PRN PRN Reason: FLUSH AFTER USING IV ACCESS Allergies/Adverse Reactions: Allergies Allergy/AdvReac Type Severity Reaction Status Date / Time codeine Allergy Severe Hives Unverified 06/30/18 10:28 tramadol Allergy Severe seizure Unverified 08/04/17 18:49 cyclobenzaprine Allergy Unknown Unresponsiv Verified 06/30/18 10:28 e fluvoxamine Allergy Unknown Unresponsiv Verified 06/30/18 10:28 e zolpidem Allergy Unknown Unconscious Verified 06/30/18 10:28 Beta-Blockers Allergy Anaphylaxis Verified 06/30/18 10:28 (Beta-Adrenergic Bloc MRI PRECAUTION AdvReac Severe NON REVO Uncoded 08/04/17 18:49 PACEMAKER Physical Exam Vital signs: Vital Signs 07/02/18 18:00 07/02/18 18:30 07/02/18 19:00 Temperature Pulse Rate 60 60 60 Respiratory Rate 14 20 17 Blood Pressure 103/57 L 117/66 128/78 Pulse Oximetry 100 100 99 07/02/18 19:20 07/02/18 19:30 07/02/18 20:00 Temperature 98.6 F Pulse Rate 60 60 68 Respiratory Rate 16 19 24 Blood Pressure 120/67 116/65 Pulse Oximetry 100 100 100 07/02/18 20:29 07/02/18 21:00 07/02/18 21:56 Temperature Pulse Rate 60 60 60 Respiratory Rate 28 H 12 9 L Blood Pressure 116/65 119/73 Pulse Oximetry 100 100 99 07/02/18 22:00 07/02/18 22:30 07/02/18 23:00 Temperature Pulse Rate 60 60 60 Respiratory Rate 13 23 23 Blood Pressure 116/70 112/65 135/81 Pulse Oximetry 99 100 100 07/02/18 23:30 07/03/18 00:00 07/03/18 00:30 Temperature 98.6 F Pulse Rate 59 L 60 63 Respiratory Rate 15 18 24 Blood Pressure 134/81 135/85 132/75 Pulse Oximetry 98 100 100 07/03/18 01:00 07/03/18 01:30 07/03/18 02:00 Temperature Pulse Rate 59 L 61 62 Respiratory Rate 16 21 15 Blood Pressure 137/79 130/75 131/82 Pulse Oximetry 98 99 100 07/03/18 02:30 07/03/18 03:00 07/03/18 03:30 Temperature Pulse Rate 60 60 59 L Respiratory Rate 19 3 L 18 Blood Pressure 132/82 127/76 134/78 Pulse Oximetry 100 99 99 07/03/18 04:00 07/03/18 04:30 07/03/18 05:00 Temperature 98.6 F Pulse Rate 60 60 60 Respiratory Rate 16 19 22 Blood Pressure 133/82 134/82 137/85 Pulse Oximetry 98 99 99 07/03/18 05:30 07/03/18 06:00 07/03/18 06:30 Temperature Pulse Rate 60 60 66 Respiratory Rate 16 12 32 H Blood Pressure 139/82 143/86 H 138/66 Pulse Oximetry 98 99 100 07/03/18 07:00 07/03/18 07:30 07/03/18 07:57 Temperature Pulse Rate 61 60 Respiratory Rate 23 26 H Blood Pressure 149/84 H 143/86 H Pulse Oximetry 100 100 100 07/03/18 08:00 07/03/18 08:47 07/03/18 09:00 Temperature 99.0 F Pulse Rate 60 60 61 Respiratory Rate 25 H 26 H 23 Blood Pressure 143/88 H 138/85 154/90 H Pulse Oximetry 100 100 100 07/03/18 10:00 07/03/18 10:01 07/03/18 11:00 Temperature Pulse Rate 71 61 61 Respiratory Rate 31 H 31 H 28 H Blood Pressure 142/59 H 141/74 H Pulse Oximetry 95 100 100 07/03/18 11:49 07/03/18 12:00 07/03/18 13:00 Temperature Pulse Rate 60 60 60 Respiratory Rate 18 30 H 29 H Blood Pressure 129/82 139/83 Pulse Oximetry 100 100 07/03/18 14:00 07/03/18 14:01 Temperature Pulse Rate 63 62 Respiratory Rate 34 H 30 H Blood Pressure 127/69 Pulse Oximetry 95 100 Intake & Output 07/02/18 07/03/18 07/03/18 18:59 06:59 18:59 Intake Total 1124 / 1124 1906 / 1906 1350 / 1350 Output Total 900 / 900 420 / 420 Balance 224 / 224 1486 / 1486 1350 / 1350 Weight 77.5 kg Intake: IV 605 / 605 1655 / 1655 1350 / 1350 D5W/Normal Saline Inj 1,000 ML 1000 / 1000 1000 / 1000 @ 75 mls/hr IV.CONT .[id number] FELIPA Rx#:[id number] Zosyn 2.25 GM Premix 50 ML @ 50 / 50 100 / 100 100 mls/hr IV.SIG Q8H FELIPA Rx#: [id number] KCl 20 mEq Premix Inj 20 meq In 200 / 200 200 / 200 100 / 100 100 ml @ 50 mls/hr IV.SIG Q2H PRN Rx#:[id number] Vancomycin Inj 1,000 MG In NS 250 / 250 250 / 250 250 / 250 Inj 250 ML @ 250 mls/hr IV.SIG Q12H FELIPA Rx#:[id number] Keppra Inj 500 MG In NS Inj 100 105 / 105 105 / 105 ML @ 400 mls/hr IV.SIG Q12H FELIPA Rx#:[id number] Tube Feeding 399 / 399 251 / 251 Tube Irrigant 120 / 120 Output: Urine 900 / 900 420 / 420 Other: Date of Last Bowel Movement 07/02/18 07/02/18 07/03/18 # Bowel Movements 1 - Routine Neurological Exam alert, speech normal CN right pupil 4 mm and reactive. Left pupil 2 mm and reactive. Left ptosis. MOTOR 4/5 LUE and BLE. 5/5 RUE DTR absent Objective Radiology Results: mri brain normal MRI cervical and thoracic spine--mild spondylosis with no spinal cord abnormality Laboratory Results - last 24 hr 07/02/18 07/02/18 07/02/18 18:23 19:49 23:44 WBC RBC Hgb Hct MCV MCH MCHC RDW Plt Count MPV Prelim Diff (Auto) Neut % (Auto) Lymph % (Auto) Sterling % (Auto) Eos % (Auto) Baso % (Auto) Neut # (Auto) Lymph # (Auto) Sterling # (Auto) Eos # (Auto) Baso # (Auto) WBC Differential Diff Scan Differential Comment Platelet Estimate Platelet Morphology Sodium Potassium 2.6 L* Chloride Carbon Dioxide Anion Gap BUN Creatinine Estimated GFR POC Glucose 155 H 154 H Random Glucose Calcium Phosphorus Magnesium Total Bilirubin AST ALT Alkaline Phosphatase Total Creatine Kinase CK-MB (CK-2) CK-MB (CK-2) % Total Protein Albumin 07/03/18 07/03/18 07/03/18 04:11 08:00 08:49 WBC 4.1 RBC 3.54 L Hgb 11.6 L Hct 33.6 L MCV 95.0 MCH 32.8 MCHC 34.5 RDW 15.6 Plt Count 51 L MPV 9.2 Prelim Diff (Auto) Slide review pending Neut % (Auto) 87.6 H Lymph % (Auto) 7.9 L Sterling % (Auto) 4.4 Eos % (Auto) 0.1 Baso % (Auto) 0.0 Neut # (Auto) 3.6 Lymph # (Auto) 0.3 L Sterling # (Auto) 0.2 Eos # (Auto) 0.0 Baso # (Auto) 0.0 WBC Differential . Diff Scan Auto diff confirmed Differential Comment . Platelet Estimate Low L Platelet Morphology Normal Sodium Potassium Chloride Carbon Dioxide Anion Gap BUN Creatinine Estimated GFR POC Glucose 103 107 Random Glucose Calcium Phosphorus Magnesium Total Bilirubin AST ALT Alkaline Phosphatase Total Creatine Kinase CK-MB (CK-2) CK-MB (CK-2) % Total Protein Albumin 07/03/18 07/03/18 07/03/18 08:49 11:48 16:27 WBC RBC Hgb Hct MCV MCH MCHC RDW Plt Count MPV Prelim Diff (Auto) Neut % (Auto) Lymph % (Auto) Sterling % (Auto) Eos % (Auto) Baso % (Auto) Neut # (Auto) Lymph # (Auto) Sterling # (Auto) Eos # (Auto) Baso # (Auto) WBC Differential Diff Scan Differential Comment Platelet Estimate Platelet Morphology Sodium 147 H Potassium 3.0 L Chloride 104 Carbon Dioxide 35.0 H Anion Gap 8 BUN 24 H Creatinine 0.82 Estimated GFR Greater than 89 POC Glucose 100 84 Random Glucose 102 Calcium 8.6 D Phosphorus 2.1 L Magnesium 1.9 Total Bilirubin 0.5 AST 592 H ALT 336 H Alkaline Phosphatase 116 Total Creatine Kinase 7418 H CK-MB (CK-2) 11.5 H CK-MB (CK-2) % 0.2 Total Protein 6.3 L D Albumin 2.6 L Microbiology 06/30/18 13:36 Aerobic Blood Culture - Preliminary Blood - Peripheral No growth in 3 days Anaerobic Blood Culture - Preliminary No growth in 3 days 06/30/18 13:26 Aerobic Blood Culture - Preliminary Blood - Peripheral No growth in 3 days Anaerobic Blood Culture - Preliminary No growth in 3 days 06/30/18 11:51 Gram Stain - Final Fluid - Other Wound Culture - Final [employer] S. aureus MRSA Tamika albicans Review/Management - Diagnosis (1) Myelopathy Code(s): G95.9 - Disease of spinal cord, unspecified Status: Acute Current Visit: Yes - Review/Management Plan: Lumbar puncture--r/o guillain barre, Joy-Mac syndrome Due to coagulopathy, thrombocytopenia, will hold off on LP for now
[2018-07-03 19:54] LABS: Activated Partial Thrombo Time 29.4 sec (23.4-31.7); INR 1.1 Ratio; Prothrombin Time 11.1 sec (9.8-11.6)
[2018-07-03] MEDS: levETIRAcetam 250 MG Tablet PO SCH (21:19)
[2018-07-03] MEDS ORDERED: Pharmacy Ordered Lab Info OTHER ONE (22:45)
[2018-07-04] MEDS: Vancomycin Inj 1,000 MG in Sodium Chlor 0.9% Inj 250 ML IV.SIG SCH ×3 (00:32→23:37)
[2018-07-04] MEDS: Insulin NovoLIN Regular Correctional Sugar Inj SQ SCH ×7 (00:52→23:43)
[2018-07-04] MEDS: Morphine Sulfate Inj 2 MG/ML Vial IV.PUSH PRN ×5 (00:53→16:51)
[2018-07-04] MEDS: Chlorhexidine Gluconate 2% 1 Pack (2 Cloths) TOPICAL SCH (04:53)
[2018-07-04] MEDS: Piperacil/Tazo 3.375 GM Premix 50 ML IV.SIG SCH ×4 (04:53→21:10)
[2018-07-04] MEDS: Levothyroxine 75 MCG Tablet PO SCH (05:19)
[2018-07-04] MEDS: Hydrocortisone Sod Succinate 100 MG Vial IV.PUSH SCH ×3 (05:19→21:10)
[2018-07-04] MEDS: Gabapentin 300 MG Capsule PO SCH ×3 (08:37→17:18)
[2018-07-04] MEDS: Pantoprazole Inj 40 MG Vial IV.PUSH SCH (08:37)
[2018-07-04] MEDS: levETIRAcetam 250 MG Tablet PO SCH ×2 (08:37→21:10)
[2018-07-04] MEDS: Dextrose 5%/NaCl 0.9% Inj 1,000 ML IV.CONT SCH ×2 (08:37→15:31)
--- NOTE | 2018-07-04 08:38 | P.PN ---
Subjective Interval history: Follow-up encephalopathy/neurologic deficits/rule out Kell Julio syndrome July 04, 2018-patient seen and examined, alert and oriented x3. Complains of left upper extremity as well as right lower extremity weakness. Currently afebrile. Physical Exam Vital signs: Vital Signs 07/03/18 08:47 07/03/18 09:00 07/03/18 10:00 Temperature Pulse Rate 60 61 71 Respiratory Rate 26 H 23 31 H Blood Pressure 138/85 154/90 H Pulse Oximetry 100 100 95 07/03/18 10:01 07/03/18 11:00 07/03/18 11:49 Temperature Pulse Rate 61 61 60 Respiratory Rate 31 H 28 H 18 Blood Pressure 142/59 H 141/74 H Pulse Oximetry 100 100 07/03/18 12:00 07/03/18 13:00 07/03/18 14:00 Temperature Pulse Rate 60 60 63 Respiratory Rate 30 H 29 H 34 H Blood Pressure 129/82 139/83 Pulse Oximetry 100 100 95 07/03/18 14:01 07/03/18 15:00 07/03/18 15:38 Temperature Pulse Rate 62 60 59 L Respiratory Rate 30 H 38 H 25 H Blood Pressure 127/69 Pulse Oximetry 100 98 07/03/18 15:59 07/03/18 16:00 07/03/18 16:08 Temperature Pulse Rate 60 Respiratory Rate Blood Pressure 127/78 148/84 H 147/90 H Pulse Oximetry 07/03/18 16:09 07/03/18 17:00 07/03/18 18:00 Temperature Pulse Rate 63 60 60 Respiratory Rate 27 H 26 H Blood Pressure 131/72 123/66 Pulse Oximetry 100 99 07/03/18 20:00 07/03/18 20:36 07/03/18 21:22 Temperature 98.2 F Pulse Rate 60 66 Respiratory Rate 26 H 19 20 Blood Pressure 129/79 Pulse Oximetry 100 100 07/03/18 22:00 07/04/18 00:00 07/04/18 00:16 Temperature 98.1 F Pulse Rate 60 60 Respiratory Rate 23 Blood Pressure 140/86 Pulse Oximetry 100 96 07/04/18 02:50 07/04/18 04:00 07/04/18 05:18 Temperature 98.0 F Pulse Rate 60 Respiratory Rate 22 17 19 Blood Pressure 114/57 L Pulse Oximetry 99 Intake & Output 07/03/18 07/04/18 07/04/18 18:59 06:59 18:59 Intake Total 2005 2731 / 2731 1000 / 1000 Output Total 900 / 900 750 / 750 Balance 1106 / 1106 1980 1000 / 1000 Weight 78.1 kg Intake: IV 1400 / 1400 1905 / 1905 1000 / 1000 D5W/Normal Saline Inj 1,000 ML 1000 / 1000 1000 / 1000 @ 75 mls/hr IV.CONT .[id number] [facility] Rx#:[id number] Zosyn 3.375 GM Premix 50 ML @ 50 / 50 100 / 100 100 mls/hr IV.SIG Q6H [facility] Rx#: [id number] KCl 20 mEq Premix Inj 20 meq In 100 / 100 200 / 200 100 ml @ 50 mls/hr IV.SIG Q2H PRN Rx#:[id number] Vancomycin Inj 1,000 MG In NS 250 / 250 500 / 500 Inj 250 ML @ 250 mls/hr IV.SIG Q12H [facility] Rx#:[id number] Keppra Inj 500 MG In NS Inj 100 105 / 105 ML @ 400 mls/hr IV.SIG Q12H [facility] Rx#:[id number] Oral 0 / 0 0 / 0 Tube Feeding 606 / 606 826 / 826 Output: Urine 900 / 900 750 / 750 Other: Date of Last Bowel Movement 07/03/18 07/03/18 # Bowel Movements 1 0 Narrative: GENERAL: SKIN: Warm and dry. HEAD: Atraumatic. Normocephalic. EYES: Right pupil dilated 4cm, left 2cm. No scleral icterus. No injection or drainage. ENT: No nasal bleeding or discharge. Mucous membranes pink and moist. NECK: Trachea midline. No JVD. spit fistula esophagectomy CARDIOVASCULAR: Regular rate and rhythm. RESPIRATORY: No accessory muscle use. Clear to auscultation. Breath sounds equal bilaterally. GASTROINTESTINAL: Abdomen soft, non-tender, nondistended. Hepatic and splenic margins not palpable. PEG tube in place MUSCULOSKELETAL: Extremities without clubbing, cyanosis, or edema. No obvious deformities. NEUROLOGICAL: Awake and alert. No obvious cranial nerve deficits. 3/5 LUE and 2 /5 RLE. Normal speech. PSYCHIATRIC: Appropriate mood and affect; insight and judgment normal. Results - Labs CBC & Chem 7: 07/03/18 08:49 07/03/18 08:49 Laboratory Results - last 24 hr 07/03/18 07/03/18 07/03/18 08:49 08:49 11:48 WBC 4.1 RBC 3.54 L Hgb 11.6 L Hct 33.6 L MCV 95.0 MCH 32.8 MCHC 34.5 RDW 15.6 Plt Count 51 L MPV 9.2 Prelim Diff (Auto) Slide review pending Neut % (Auto) 87.6 H Lymph % (Auto) 7.9 L [place] % (Auto) 4.4 Eos % (Auto) 0.1 Baso % (Auto) 0.0 Neut # (Auto) 3.6 Lymph # (Auto) 0.3 L [place] # (Auto) 0.2 Eos # (Auto) 0.0 Baso # (Auto) 0.0 WBC Differential . Diff Scan Auto diff confirmed Differential Comment . Platelet Estimate Low L Platelet Morphology Normal ESR PT INR APTT Sodium 147 H Potassium 3.0 L Chloride 104 Carbon Dioxide 35.0 H Anion Gap 8 BUN 24 H Creatinine 0.82 Estimated GFR Greater than 89 POC Glucose 100 Random Glucose 102 Calcium 8.6 D Phosphorus 2.1 L Magnesium 1.9 Total Bilirubin 0.5 AST 592 H ALT 336 H Alkaline Phosphatase 116 Total Creatine Kinase 7418 H CK-MB (CK-2) 11.5 H CK-MB (CK-2) % 0.2 Total Protein 6.3 L D Albumin 2.6 L Rheumatoid Factor Scrn Rheumatoid Factor Titer 07/03/18 07/03/18 07/03/18 16:27 18:49 18:49 WBC RBC Hgb Hct MCV MCH MCHC RDW Plt Count MPV Prelim Diff (Auto) Neut % (Auto) Lymph % (Auto) [place] % (Auto) Eos % (Auto) Baso % (Auto) Neut # (Auto) Lymph # (Auto) [place] # (Auto) Eos # (Auto) Baso # (Auto) WBC Differential Diff Scan Differential Comment Platelet Estimate Platelet Morphology ESR PT 11.1 INR 1.1 APTT 29.4 Cancelled Sodium Potassium Chloride Carbon Dioxide Anion Gap BUN Creatinine Estimated GFR POC Glucose 84 Random Glucose Calcium Phosphorus Magnesium Total Bilirubin AST ALT Alkaline Phosphatase Total Creatine Kinase CK-MB (CK-2) CK-MB (CK-2) % Total Protein Albumin Rheumatoid Factor Scrn Rheumatoid Factor Titer 07/03/18 07/04/18 07/04/18 21:18 00:45 04:52 WBC RBC Hgb Hct MCV MCH MCHC RDW Plt Count MPV Prelim Diff (Auto) Neut % (Auto) Lymph % (Auto) [place] % (Auto) Eos % (Auto) Baso % (Auto) Neut # (Auto) Lymph # (Auto) [place] # (Auto) Eos # (Auto) Baso # (Auto) WBC Differential Diff Scan Differential Comment Platelet Estimate Platelet Morphology ESR PT INR APTT Sodium Potassium Chloride Carbon Dioxide Anion Gap BUN Creatinine Estimated GFR POC Glucose 112 H 116 H 127 H Random Glucose Calcium Phosphorus Magnesium Total Bilirubin AST ALT Alkaline Phosphatase Total Creatine Kinase CK-MB (CK-2) CK-MB (CK-2) % Total Protein Albumin Rheumatoid Factor Scrn Rheumatoid Factor Titer 07/04/18 07/04/18 05:19 05:19 WBC RBC Hgb Hct MCV MCH MCHC RDW Plt Count MPV Prelim Diff (Auto) Neut % (Auto) Lymph % (Auto) [place] % (Auto) Eos % (Auto) Baso % (Auto) Neut # (Auto) Lymph # (Auto) [place] # (Auto) Eos # (Auto) Baso # (Auto) WBC Differential Diff Scan Differential Comment Platelet Estimate Platelet Morphology ESR 35 H PT INR APTT Sodium Potassium Chloride Carbon Dioxide Anion Gap BUN Creatinine Estimated GFR POC Glucose Random Glucose Calcium Phosphorus Magnesium Total Bilirubin AST ALT Alkaline Phosphatase Total Creatine Kinase CK-MB (CK-2) CK-MB (CK-2) % Total Protein Albumin Rheumatoid Factor Scrn Negative Rheumatoid Factor Titer Not Reportable Microbiology 06/30/18 13:36 Blood - Peripheral Aerobic Blood Culture - Preliminary No growth in 3 days 06/30/18 13:36 Blood - Peripheral Anaerobic Blood Culture - Preliminary No growth in 3 days 06/30/18 13:26 Blood - Peripheral Aerobic Blood Culture - Preliminary No growth in 3 days 06/30/18 13:26 Blood - Peripheral Anaerobic Blood Culture - Preliminary No growth in 3 days 06/30/18 11:51 Fluid - Other Gram Stain - Final 06/30/18 11:51 Fluid - Other Wound Culture - Final [place] [employer] group S. aureus MRSA Tamika albicans - Imaging Impressions Head MRI 07/03/18 07:05 CONCLUSION: 1. Unremarkable MRI of the brain. Cervical Spine MRI 07/03/18 07:07 CONCLUSION: 1. Focal mild right lateral bulging at C5-6. 2. Otherwise, unremarkable exam for patient's age. Thoracic Spine MRI 07/03/18 07:07 CONCLUSION: 1. Mild broad-based bulging at T10-T11. 2. Mild disc space narrowing from T3 through T7. 3. Mild chronic loss of height of T9, T10 and T11. No abnormal bone marrow signal. Assessment and Plan - Plan 32-year-old man with Altered mental status-resolved Neuro deficit Rule out Guillain-Julio syndrome Appreciate input from neurology However secondary to thrombocytopenia, and unable to perform LUMBAR PUNCTURE CT spine MRI, thoracic spine MRI unremarkable PT to treat and eval History of pituitary dysfunction. Adrenal insufficiency. Status post hypoglycemic episode. On hydrocortisone 50 mg IV every 8 hours and D5NS for hypoglycemic episodes Accu-Chek every 4 hours f. Acute renal failure, Rhabdo Renal indices improving Leukocytosis with bandemia. Continue Zosyn, add Vanco, monitor for signs of infection. blood culture: NGTD, Wound cx: [place], MRSA, Tamika Seizure disorder. Continue Keppra and gabapentin. Ativan 1 mg IV every 4hours p.r.n. for seizures. Appreciate input from neurology EEG noted and reviewed with no focal abnormality is noted and no seizure activity is seen. Head MRI unremarkable Left basilar airspace disease. Continue with oxygen and maintain sats >92%. Bronchodilators. CXR: Minimal left basilar airspace disease Pacemaker secondary to bradycardia. [employer] to reset pacemaker prior to MRI. History of Boerhaave syndrome with spit fistula esophagectomy. Previous J-tube placement. Elevated liver enzymes. Hep C Hepatitis profile: + Hep C Ig ab US abdomen: Hepatosplenomegaly On Protonix 40 mg IV daily for GI prophylaxis. Continue tube feeds via J-tube change to Suplena with goal rate 70ml/hr GI prophylaxis- Protonix 40 mg daily DVT prophylaxis- SCD, not on AC prophylaxis due to thrombocytopenia
[2018-07-04] MEDS: Morphine Sulfate 15 MG IR Tablet PO PRN ×4 (09:41→23:38)
[2018-07-04] MEDS ORDERED: Pharmacy Ordered Lab Info OTHER ONE (10:45)
[2018-07-04 13:09] LABS: Baso % (Auto) 0.3 % (0.0-2.0); Eos % (Auto) 0.2 % (0.0-4.0); Hematocrit 31.4 % (39.0-51.0); Hemoglobin 10.7 gm/dL (13.0-17.0); Lymph # (Auto) 0.4 th/mm3 (1.0-4.8); Lymph % (Auto) 11.1 % (9.0-44.0); Mean Corpuscular HGB Conc 34.2 % (32.0-36.0); Mean Corpuscular Volume 96.7 fL (80.0-100.0); Mean Platelet Volume 9.9 fL (7.0-11.0); Mono # (Auto) 0.3 th/mm3 (0.0-0.9); Neut # (Auto) 2.5 th/mm3 (1.8-7.7); Neut % (Auto) 78.4 % (16.0-70.0); Platelet Count 65 th/mm3 (150-450); Red Blood Count 3.25 mil/mm3 (4.50-5.90); Red Cell Distribution Width 15.9 % (11.6-17.2); White Blood Count 3.2 th/mm3 (4.0-11.0)
[2018-07-04 13:28] LABS: Albumin 2.3 g/dL (3.4-5.0); Anion Gap 7 meq/L (5-15); Aspartate Aminotransferase 275 U/L (15-37); Blood Urea Nitrogen 26 mg/dL (7-18); Calcium 8.1 mg/dL (8.5-10.1); Carbon Dioxide 33.4 meq/L (21.0-32.0); Chloride 108 meq/L (98-107); Glomerular Filtration Rate Greater Than 89 mL/min (>89); Glucose,Random 90 mg/dL (74-106); Magnesium 1.8 mg/dL (1.5-2.5); Potassium 3.3 meq/L (3.5-5.1); Sodium 148 meq/L (136-145)
[2018-07-04 13:42] LABS: Lymphocytes 15 % (9-44); Metamyelocytes 1 % (0-1); Monocytes 8 % (0-8); Myelocytes 1 % (0-0); Platelet Morphology Normal (Normal)
[2018-07-04 13:43] LABS: Alanine Aminotransferase 269 U/L (12-78); Alkaline Phosphatase 95 U/L (45-117); Creatine Kinase 2274 U/L (39-308); Phosphorus 1.9 mg/dL (2.5-4.9); RBC Morphology Normal (Normal); Total Protein 5.5 g/dL (6.4-8.2)
[2018-07-04 14:02] LABS: CKMB Percent 0.2 % (0.0-4.0); Creatine Kinase MB 4.7 ng/mL (0.5-3.6)
--- NOTE | 2018-07-04 17:11 | P.PNCA ---
Subjective Interval history: No CP or SOB, MRI yest without any issues Medications and Allergies Active Medications: Active Medications Al Hydroxide/Mg Hydroxide (Milk Of Magnesia Liq) 30 ml PO Q12H PRN PRN Reason: Mild Constipation Albuterol (Duoneb Neb (Prn)) 1 ampul NEB Q2HR NEB PRN PRN Reason: WHEEZING Last Admin: 07/03/18 11:49 Dose: 1 ampul Albuterol (Duoneb Neb (Felipa)) 1 ampul NEB Q12HR NEB [facility] Last Admin: 07/04/18 08:48 Dose: 1 ampul Bisacodyl (Dulcolax Supp) 10 mg RECTAL DAILY PRN PRN Reason: SEVERE CONSITIPATION Chlorhexidine Gluconate (Chlorhexidine 2% Cloth) 3 pack TOPICAL DAILY@0400 [facility] Stop: 07/06/18 03:59 Last Admin: 07/04/18 04:53 Dose: 3 pack Chlorhexidine Gluconate (Chlorhexidine 2% Cloth) 3 pack TOPICAL DAILY@0400 PRN PRN Reason: Extra cloth needed Stop: 07/06/18 03:59 Dextrose (D50w Vial) 50 ml IV.PUSH UNSCH PRN PRN Reason: PER HYPOGLYCEMIA PROTOCOL Fentanyl (Duragesic 25 Mcg Patch.72hr) 1 patch T-DERMAL Q72H [facility] Last Admin: 07/03/18 13:07 Dose: 1 patch Gabapentin (Neurontin) 300 mg PO TID [facility] Last Admin: 07/04/18 13:09 Dose: 300 mg Glucagon (Glucagon Inj) 1 mg OTHER PRN PRN PRN Reason: for Hypoglycemia Protocol Hydrocortisone Sodium Succinate (Solucortef Inj) 50 mg IV.PUSH Q8HR [facility] Last Admin: 07/04/18 13:09 Dose: 50 mg Dextrose/Sodium Chloride (D5w/Normal Saline Inj) 1,000 mls @ 75 mls/hr IV.CONT .[id number] [facility] Last Admin: 07/04/18 15:31 Dose: 75 mls/hr Vancomycin HCl 1,000 mg/ (Sodium Chloride) 250 mls @ 250 mls/hr IV.SIG Q12H [facility] Last Infusion: 07/04/18 12:58 Dose: Infused Magnesium Sulfate 4 gm/ Sodium (Chloride) 100 mls @ 50 mls/hr IV.SIG UNSCH PRN PRN Reason: For Magnesium 0.9 - 1.1 mg/dL Magnesium Sulfate 2 gm/ Sodium (Chloride) 100 mls @ 50 mls/hr IV.SIG UNSCH PRN PRN Reason: For Magnesium 1.2 - 1.6 mg/dL Potassium Chloride (Kcl 40 Meq Premix Inj) 40 meq in 100 mls @ 25 mls/hr IV.SIG Q2H PRN PRN Reason: For Potassium 2.8 - 3.2 mEq/L Potassium Chloride (Kcl 40 Meq Premix Inj) 40 meq in 100 mls @ 25 mls/hr IV.SIG UNSCH PRN PRN Reason: For Potassium 3.3 - 3.5 mEq/L Potassium Chloride (Kcl 20 Meq Premix Inj) 20 meq in 100 mls @ 50 mls/hr IV.SIG Q2H PRN PRN Reason: For Potassium 2.8 - 3.2 mEq/L Last Infusion: 07/04/18 00:53 Dose: Infused Potassium Phosphate 30 mmol/ (Sodium Chloride) 260 mls @ 42 mls/hr IV.SIG UNSCH PRN PRN Reason: SEE LABEL COMMENTS Sodium Phosphate 30 mmol/ (Sodium Chloride) 260 mls @ 42 mls/hr IV.SIG UNSCH PRN PRN Reason: For Phosphorus < 2.5 mg/dL Potassium Chloride (Kcl 20 Meq Premix Inj) 20 meq in 100 mls @ 50 mls/hr IV.SIG Q2H PRN PRN Reason: For Potassium 3.3 - 3.5 mEq/L Piperacillin/Tazobactam/Dextrose (Zosyn 3.375 Gm Premix) 50 mls @ 100 mls/hr IV.SIG Q6H [facility] Last Infusion: 07/04/18 10:11 Dose: Infused Insulin Human Regular (Novolin R Correctional Sugar Inj) 0 units SQ Q4HR [facility]; Protocol Last Admin: 07/04/18 11:50 Dose: Not Given Lactulose (Lactulose Liq) 30 ml PO DAILY PRN PRN Reason: SEVERE CONSITIPATION Levetiracetam (Keppra) 750 mg PO BID [facility] Last Admin: 07/04/18 08:37 Dose: 750 mg Levothyroxine Sodium (Synthroid) 75 mcg PO DAILY@0600 [facility] Last Admin: 07/04/18 05:19 Dose: 75 mcg Magnesium Oxide (Mag-Ox) 800 mg PO UNSCH PRN PRN Reason: For Magnesium 1.2 - 1.6 mg/dL Miscellaneous Information ([facility] Ordered Lab Info) 0 each OTHER ONCE ONE Stop: 07/06/18 10:46 Morphine Sulfate (Morphine Inj) 2 mg IV.PUSH Q4H PRN PRN Reason: PAIN SCALE 3 TO 5 Last Admin: 07/04/18 16:51 Dose: 2 mg Morphine Sulfate (Msir) 15 mg PO Q4H PRN PRN Reason: PAIN SCALE 1 TO 10 Last Admin: 07/04/18 15:32 Dose: 15 mg Pantoprazole Sodium (Protonix Inj) 40 mg IV.PUSH DAILY [facility] Last Admin: 07/04/18 08:37 Dose: 40 mg Patch Removal (Remove Old Patch) 1 each T-DERMAL Q72H [facility] Last Admin: 07/03/18 13:29 Dose: Not Given Patch Removal (Remove Old Patch) 1 each T-DERMAL Q72H [facility] Last Admin: 07/03/18 13:30 Dose: Not Given Pharmacy Profile Note (Vancomycin Consult Pharmacy) 1 each OTHER UNSCH PRN PRN Reason: Pharmacy to dose Potassium Bicarb/Potassium Chloride (K-Lyte Cl Eff) 50 meq PO UNSCH PRN PRN Reason: For Potassium 3.3 - 3.5 mEq/L Last Admin: 07/04/18 13:45 Dose: 50 meq Potassium Phosphate (K-Phos Original) 2,000 mg PO Q4H PRN PRN Reason: Phosphorus Less Than 2.5 mg/dL Last Admin: 07/04/18 14:23 Dose: 2,000 mg Potassium Phosphate (K-Phos Original) 2,000 mg PO UNSCH PRN PRN Reason: SEE LABEL COMMENTS Quetiapine Fumarate (Seroquel) 400 mg PO BID [facility] Last Admin: 07/03/18 21:19 Dose: Not Given Sennosides (Senokot) 17.2 mg PO Q12H PRN PRN Reason: Moderate Constipation Sodium Chloride (Ns Flush) 2 ml IV.FLUSH PRN PRN PRN Reason: FLUSH AFTER USING IV ACCESS Allergies Allergy/AdvReac Type Severity Reaction Status Date / Time codeine Allergy Severe Hives Unverified 06/30/18 10:28 tramadol Allergy Severe seizure Unverified 08/04/17 18:49 cyclobenzaprine Allergy Unknown Unresponsiv Verified 06/30/18 10:28 e fluvoxamine Allergy Unknown Unresponsiv Verified 06/30/18 10:28 e zolpidem Allergy Unknown Unconscious Verified 06/30/18 10:28 Beta-Blockers Allergy Anaphylaxis Verified 06/30/18 10:28 (Beta-Adrenergic Bloc MRI PRECAUTION AdvReac Severe NON REVO Uncoded 08/04/17 18:49 PACEMAKER Home Medications Medication Instructions Recorded Confirmed Type albuterol sulfate [Proventil HFA] INHALATION Q3-4H PRN 06/30/18 History fentanyl 1 patch TRANSDERMAL Q72H 06/30/18 06/30/18 History gabapentin 300 mg PO TID 06/30/18 06/30/18 History levetiracetam [Keppra] 750 mg PO BID 06/30/18 06/30/18 History levothyroxine [Synthroid] 75 mcg PO DAILY 06/30/18 06/30/18 History lorazepam [Ativan] 1 mg PO BID 06/30/18 06/30/18 History morphine 15 mg PO Q4-6H PRN 06/30/18 06/30/18 History quetiapine [Seroquel] 400 mg PO BID 06/30/18 06/30/18 History Physical Exam Vital signs: Vital Signs 07/03/18 18:00 07/03/18 20:00 07/03/18 20:36 Temperature 98.2 F Pulse Rate 60 60 66 Respiratory Rate 26 H 26 H 19 Blood Pressure 123/66 129/79 Pulse Oximetry 99 100 100 07/03/18 21:22 07/03/18 22:00 07/04/18 00:00 Temperature 98.1 F Pulse Rate 60 60 Respiratory Rate 20 23 Blood Pressure 140/86 Pulse Oximetry 100 07/04/18 00:16 07/04/18 02:50 07/04/18 04:00 Temperature 98.0 F Pulse Rate 60 Respiratory Rate 22 17 Blood Pressure 114/57 L Pulse Oximetry 96 99 07/04/18 05:18 07/04/18 08:00 07/04/18 08:48 Temperature 97.5 F L Pulse Rate 60 60 Respiratory Rate 19 27 H 22 Blood Pressure 158/91 H Pulse Oximetry 100 07/04/18 08:49 07/04/18 08:51 07/04/18 12:00 Temperature 98.0 F Pulse Rate 60 Respiratory Rate 25 H 29 H Blood Pressure 134/79 Pulse Oximetry 98 100 07/04/18 13:04 Temperature Pulse Rate Respiratory Rate 17 Blood Pressure Pulse Oximetry Intake & Output 07/03/18 07/04/18 07/04/18 18:59 06:59 18:59 Intake Total 2005 2731 / 2731 2300 / 2300 Output Total 900 / 900 750 / 750 250 / 250 Balance 1106 / 1106 1980 / 1980 Weight 172 lb 2.896 oz Intake: IV 1400 / 1400 1905 / 1905 2300 / 2300 D5W/Normal Saline Inj 1,000 ML 1000 / 1000 2000 / 2000 @ 75 mls/hr IV.CONT .[id number] [facility] Rx#:[id number] Zosyn 3.375 GM Premix 50 ML @ 50 / 50 100 / 100 50 / 50 100 mls/hr IV.SIG Q6H [facility] Rx#: [id number] KCl 20 mEq Premix Inj 20 meq In 100 / 100 200 / 200 100 ml @ 50 mls/hr IV.SIG Q2H PRN Rx#:[id number] Vancomycin Inj 1,000 MG In NS 250 / 250 500 / 500 250 / 250 Inj 250 ML @ 250 mls/hr IV.SIG Q12H [facility] Rx#:[id number] Keppra Inj 500 MG In NS Inj 100 105 / 105 ML @ 400 mls/hr IV.SIG Q12H [facility] Rx#:[id number] Oral 0 / 0 0 / 0 Tube Feeding 606 / 606 826 / 826 Output: Urine 900 / 900 750 / 750 250 / 250 Other: Date of Last Bowel Movement 07/03/18 07/03/18 07/03/18 # Bowel Movements 1 0 Narrative: GENERAL: In NAD. SKIN: Warm and dry. EYES: Right pupil dilated NECK: Trachea midline. No JVD. CARDIOVASCULAR: Regular rate and rhythm. RESPIRATORY: No accessory muscle use. Clear to auscultation. Breath sounds equal bilaterally. GASTROINTESTINAL: Abdomen soft, non-tender, nondistended. Hepatic and splenic margins not palpable. PEG tube in place MUSCULOSKELETAL: Extremities without clubbing, cyanosis, or edema. No obvious deformities. NEUROLOGICAL: Awake and alert. PSYCHIATRIC: Appropriate mood and affect; insight and judgment normal. Results 07/04/18 12:00 07/04/18 12:00 Cardiac Enzymes 07/03/18 07/04/18 Range/Units 08:49 12:00 AST 592 H 275 H (15-37) U/L CK-MB (CK-2) 11.5 H 4.7 H (0.5-3.6) ng/mL Coagulation 07/03/18 07/03/18 Range/Units 18:49 18:49 PT 11.1 (9.8-11.6) sec APTT 29.4 Cancelled (23.4-31.7) sec CBC 07/03/18 07/04/18 Range/Units 08:49 12:00 WBC 4.1 3.2 L (4.0-11.0) th/mm3 RBC 3.54 L 3.25 L (4.50-5.90) mil/mm3 Hgb 11.6 L 10.7 L (13.0-17.0) gm/dL Hct 33.6 L 31.4 L (39.0-51.0) % Plt Count 51 L 65 L (150-450) th/mm3 Neut # (Auto) 3.6 2.5 (1.8-7.7) th/mm3 Lymph # (Auto) 0.3 L 0.4 L (1.0-4.8) th/mm3 [place] # (Auto) 0.2 0.3 (0.0-0.9) th/mm3 Eos # (Auto) 0.0 0.0 (0.0-0.4) th/mm3 Baso # (Auto) 0.0 0.0 (0.0-0.2) th/mm3 Comprehensive Metabolic Panel 07/02/18 07/03/18 07/04/18 Range/Units 18:23 08:49 12:00 Sodium 147 H 148 H (136-145) meq/L Potassium 2.6 L* 3.0 L 3.3 L (3.5-5.1) meq/L Chloride 104 108 H (98-107) meq/L Carbon Dioxide 35.0 H 33.4 H (21.0-32.0) meq/L BUN 24 H 26 H (7-18) mg/dL Creatinine 0.82 0.78 (0.60-1.30) mg/dL Calcium 8.6 D 8.1 L (8.5-10.1) mg/dL AST 592 H 275 H (15-37) U/L ALT 336 H 269 H (12-78) U/L Alkaline Phosphatase 116 95 (45-117) U/L Total Protein 6.3 L D 5.5 L D (6.4-8.2) g/dL Albumin 2.6 L 2.3 L (3.4-5.0) g/dL Intake and Output 07/04/18 07/04/18 07/04/18 06:59 14:59 22:59 Intake Total 1276 / 1276 1300 / 1300 1000 / 1000 Output Total 750 / 750 250 / 250 Balance 526 / 526 1300 / 1300 750 / 750 Intake: IV 450 / 450 1300 / 1300 1000 / 1000 D5W/Normal Saline Inj 1,000 ML 1000 / 1000 1000 / 1000 @ 75 mls/hr IV.CONT .[id number] [facility] Rx#:[id number] Zosyn 3.375 GM Premix 50 ML @ 100 / 100 50 / 50 100 mls/hr IV.SIG Q6H [facility] Rx#: [id number] KCl 20 mEq Premix Inj 20 meq In 100 / 100 100 ml @ 50 mls/hr IV.SIG Q2H PRN Rx#:[id number] Vancomycin Inj 1,000 MG In NS 250 / 250 250 / 250 Inj 250 ML @ 250 mls/hr IV.SIG Q12H [facility] Rx#:[id number] Oral 0 / 0 Tube Feeding 826 / 826 Output: Urine 750 / 750 250 / 250 Other: Date of Last Bowel Movement 07/03/18 07/03/18 # Bowel Movements 0 Weight 172 lb 2.896 oz - Imaging and Cardiology Imaging: Impressions Cervical Spine CT 07/02/18 00:00 CONCLUSION: 1. No acute bony abnormalities within the cervical spine. No canal stenosis identified. 2. Soft tissue swelling of the left neck with small radiopaque foreign bodies in the subcutaneous tissues and locules of air, possibly related to fistulous tract. Thoracic Spine CT 07/02/18 00:00 CONCLUSION: 1. Mild kyphosis. 2. Mild loss of height of several lower thoracic vertebral bodies, stable. 3. No acute compression fracture. Head MRI 07/03/18 07:05 CONCLUSION: 1. Unremarkable MRI of the brain. Cervical Spine MRI 07/03/18 07:07 CONCLUSION: 1. Focal mild right lateral bulging at C5-6. 2. Otherwise, unremarkable exam for patient's age. Thoracic Spine MRI 07/03/18 07:07 CONCLUSION: 1. Mild broad-based bulging at T10-T11. 2. Mild disc space narrowing from T3 through T7. 3. Mild chronic loss of height of T9, T10 and T11. No abnormal bone marrow signal. 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 Normal pacemaker function. MS still mildly altered. MRI yesterday unremarkable, no pacemaker issues. Continue current program. Increase activity, PT.
--- NOTE | 2018-07-04 20:31 | CT ---
EXAM DATE: 07/04/2018 8:25 PM EST AGE/SEX: 32 years / Male INDICATIONS: Esophageal rupture. CLINICAL DATA: This is the patient's initial encounter. Patient reports that signs and symptoms have been present for 2 days and indicates a pain score of 4/10. MEDICAL/SURGICAL HISTORY: Seizures. Transient ischemic attack. Liver disease. Marla's Syndrome. Pacemaker. RADIATION DOSE: 13.30 CTDI (mGy) COMPARISON: [facility] [place], MR THORACIC SPINE W/O CONTRAST, 07/03/2018. . TECHNIQUE: Helical acquisition was performed using a multirow detector CT scanner during the adminis tration of 40 ml Omnipaque 350 (iohexol) nonionic water-soluble contrast as a single exam dose. Usi ng automated exposure control and adjustment of the mA and/or kV according to patient size, radiation dose was kept as low as reasonably achievable to obtain optimal diagnostic quality images. DICOM fo rmat image data is available electronically for review and comparison. FINDINGS: There is a pacemaker on the left. There is good visualization of the oropharynx, hypopharynx and haven ngeal areas. There is no induration. There is no subcutaneous air. There is no abnormal fluid to sugg est esophageal rupture. Lung apex is clear. There is no axillary or mediastinal adenopathy. I do not see evidence for esophageal rupture. There is reasonable opacification of both carotid arteries. I don't see a dissection as a cause of th e Marla's syndrome however visualization is limited. CONCLUSION: 1. I do not see evidence for esophageal rupture. Electronically signed by: John Garg MD Board Certified Radiologist 07/04/2018 8:30 PM EST
--- NOTE | 2018-07-04 20:33 | CT ---
EXAM DATE: 07/04/2018 8:25 PM EST AGE/SEX: 32 years / Male INDICATIONS: Mass. Evaluate for Pancoast tumor. CLINICAL DATA: This is the patient's initial encounter. Patient reports that signs and symptoms have been present for 2 days and indicates a pain score of 2/10. MEDICAL/SURGICAL HISTORY: Seizures. Transient ischemic attack. Liver Disease. Marla's Syndrome. Pacemaker. RADIATION DOSE: 14.40 CTDI (mGy) COMPARISON: [facility] [place], CT THORAX W CONTRAST, 10/31/2016. . TECHNIQUE: Multiple contiguous axial images were obtained through the chest during bolus infusion of 55 ml Omnipaque 350 (iohexol) nonionic water-soluble contrast as a single exam dose. Images were obtained in suspended respiration using multiple row detector helical technique. Using automated exp osure control and adjustment of the mA and/or kV according to patient size, radiation dose was kept a s low as reasonably achievable to obtain optimal diagnostic quality images. DICOM format image data is available electronically for review and comparison. FINDINGS: Lung: Stable 4 mm nodule in the superior segment of the right lower lobe. Mild airspace consolidatio n at the lung bases bilaterally adjacent pleural fluid. Pleura: Small right and trace left simple appearing pleural effusions. Mediastinum: Dual-lead pacemaker with leads projecting in the right atrium and ventricles. Heart is normal in size without significant pericardial effusion. No significant mediastinal adenopathy. Osseous Structures: Healed left-sided rib fractures. No significant focal lytic or blastic bony lesio ns. Soft Tissues: Soft tissues are unremarkable. No significant axillary adenopathy. Other: Visulaized upper abdomen is unremarkable. CONCLUSION: 1. No evidence of Pancoast tumor as questioned. 2. Stable 4 mm nodule in the superior segment of the right lower lobe. Routine follow-up of sub-6 mm nodules is not recommended per 2017 Fleischner material. This nodule has been essentially stable for 18 months. 3. Small right and trace left simple appearing pleural effusions. Electronically signed by: Jefferson Gifford MD Board Certified Radiologist 07/04/2018 8:32 PM MATT Avendaño
[2018-07-05] MEDS: Dextrose 5%/NaCl 0.9% Inj 1,000 ML IV.CONT SCH (02:16)
[2018-07-05] MEDS: Morphine Sulfate 15 MG IR Tablet PO PRN ×5 (03:27→20:43)
[2018-07-05] MEDS: Piperacil/Tazo 3.375 GM Premix 50 ML IV.SIG SCH ×3 (03:28→16:23)
[2018-07-05] MEDS: Chlorhexidine Gluconate 2% 1 Pack (2 Cloths) TOPICAL SCH (03:30)
[2018-07-05] MEDS: Insulin NovoLIN Regular Correctional Sugar Inj SQ SCH ×5 (03:30→20:45)
[2018-07-05] MEDS: Hydrocortisone Sod Succinate 100 MG Vial IV.PUSH SCH ×3 (05:21→21:04)
[2018-07-05] MEDS: Levothyroxine 75 MCG Tablet PO SCH (05:22)
[2018-07-05 05:54] LABS: Baso % (Auto) 0.1 % (0.0-2.0); Eos % (Auto) 0.3 % (0.0-4.0); Hematocrit 36.9 % (39.0-51.0); Hemoglobin 12.6 gm/dL (13.0-17.0); Lymph # (Auto) 0.5 th/mm3 (1.0-4.8); Mean Corpuscular HGB Conc 34.3 % (32.0-36.0); Mean Corpuscular Hemoglobin 32.3 pg (27.0-34.0); Mean Corpuscular Volume 94.4 fL (80.0-100.0); Mean Platelet Volume 9.8 fL (7.0-11.0); Mono # (Auto) 0.2 th/mm3 (0.0-0.9); Mono % (Auto) 4.9 % (0.0-8.0); Neut # (Auto) 2.9 th/mm3 (1.8-7.7); Neut % (Auto) 81.7 % (16.0-70.0); Platelet Count 105 th/mm3 (150-450); Red Blood Count 3.91 mil/mm3 (4.50-5.90); Red Cell Distribution Width 15.6 % (11.6-17.2); White Blood Count 3.5 th/mm3 (4.0-11.0)
[2018-07-05 06:34] LABS: Alanine Aminotransferase 237 U/L (12-78); Albumin 2.3 g/dL (3.4-5.0); Anion Gap 8 meq/L (5-15); Aspartate Aminotransferase 169 U/L (15-37); Blood Urea Nitrogen 26 mg/dL (7-18); Calcium 7.8 mg/dL (8.5-10.1); Carbon Dioxide 30.4 meq/L (21.0-32.0); Chloride 109 meq/L (98-107); Glomerular Filtration Rate Greater Than 89 mL/min (>89); Glucose,Random 122 mg/dL (74-106); Potassium 3.2 meq/L (3.5-5.1); Sodium 147 meq/L (136-145)
[2018-07-05 06:47] LABS: Alkaline Phosphatase 107 U/L (45-117); Creatine Kinase 1202 U/L (39-308); Total Protein 5.9 g/dL (6.4-8.2)
[2018-07-05 07:03] LABS: CKMB Percent 0.3 % (0.0-4.0); Creatine Kinase MB 3.2 ng/mL (0.5-3.6)
[2018-07-05] MEDS: Pantoprazole Inj 40 MG Vial IV.PUSH SCH (08:12)
[2018-07-05] MEDS: Gabapentin 300 MG Capsule PO SCH ×3 (08:12→18:02)
[2018-07-05] MEDS: levETIRAcetam 250 MG Tablet PO SCH ×2 (08:12→20:43)
[2018-07-05] MEDS: Vancomycin Inj 1,000 MG in Sodium Chlor 0.9% Inj 250 ML IV.SIG SCH ×2 (12:18→23:31)
--- NOTE | 2018-07-05 12:33 | P.PNCA ---
Subjective Interval history: Patient denies any CP, pressure, palpitations, dizziness, edema or SOB. Patient does complain of right foot issues. Medications and Allergies Allergies Allergy/AdvReac Type Severity Reaction Status Date / Time codeine Allergy Severe Hives Unverified 06/30/18 10:28 tramadol Allergy Severe seizure Unverified 08/04/17 18:49 cyclobenzaprine Allergy Unknown Unresponsiv Verified 06/30/18 10:28 e fluvoxamine Allergy Unknown Unresponsiv Verified 06/30/18 10:28 e zolpidem Allergy Unknown Unconscious Verified 06/30/18 10:28 Beta-Blockers Allergy Anaphylaxis Verified 06/30/18 10:28 (Beta-Adrenergic Bloc MRI PRECAUTION AdvReac Severe NON REVO Uncoded 08/04/17 18:49 PACEMAKER Home Medications Medication Instructions Recorded Confirmed Type albuterol sulfate [Proventil HFA] INHALATION Q3-4H PRN 06/30/18 History fentanyl 1 patch TRANSDERMAL Q72H 06/30/18 06/30/18 History gabapentin 300 mg PO TID 06/30/18 06/30/18 History levetiracetam [Keppra] 750 mg PO BID 06/30/18 06/30/18 History levothyroxine [Synthroid] 75 mcg PO DAILY 06/30/18 06/30/18 History lorazepam [Ativan] 1 mg PO BID 06/30/18 06/30/18 History morphine 15 mg PO Q4-6H PRN 06/30/18 06/30/18 History quetiapine [Seroquel] 400 mg PO BID 06/30/18 06/30/18 History Active Medications: Active Medications Al Hydroxide/Mg Hydroxide (Milk Of Guillermo Liq) 30 ml PO Q12H PRN PRN Reason: Mild Constipation Last Admin: 07/05/18 11:14 Dose: 30 ml Albuterol (Duoneb Neb (Prn)) 1 ampul NEB Q2HR NEB PRN PRN Reason: WHEEZING Last Admin: 07/05/18 04:47 Dose: 1 ampul Albuterol (Duoneb Neb (Felipa)) 1 ampul NEB Q12HR NEB [facility] Last Admin: 07/05/18 08:07 Dose: Not Given Bisacodyl (Dulcolax Supp) 10 mg RECTAL DAILY PRN PRN Reason: SEVERE CONSITIPATION Chlorhexidine Gluconate (Chlorhexidine 2% Cloth) 3 pack TOPICAL DAILY@0400 [facility] Stop: 07/06/18 03:59 Last Admin: 07/05/18 03:30 Dose: Not Given Chlorhexidine Gluconate (Chlorhexidine 2% Cloth) 3 pack TOPICAL DAILY@0400 PRN PRN Reason: Extra cloth needed Stop: 07/06/18 03:59 Dextrose (D50w Vial) 50 ml IV.PUSH UNSCH PRN PRN Reason: PER HYPOGLYCEMIA PROTOCOL Fentanyl (Duragesic 25 Mcg Patch.72hr) 1 patch T-DERMAL Q72H [facility] Last Admin: 07/03/18 13:07 Dose: 1 patch Gabapentin (Neurontin) 300 mg PO TID [facility] Last Admin: 07/05/18 12:23 Dose: 300 mg Glucagon (Glucagon Inj) 1 mg OTHER PRN PRN PRN Reason: for Hypoglycemia Protocol Hydrocortisone Sodium Succinate (Solucortef Inj) 50 mg IV.PUSH Q8HR [facility] Last Admin: 07/05/18 05:21 Dose: 50 mg Dextrose/Sodium Chloride (D5w/Normal Saline Inj) 1,000 mls @ 75 mls/hr IV.CONT .[id number] [facility] Last Admin: 07/05/18 02:16 Dose: 75 mls/hr Vancomycin HCl 1,000 mg/ (Sodium Chloride) 250 mls @ 250 mls/hr IV.SIG Q12H [facility] Last Admin: 07/05/18 12:18 Dose: 250 mls/hr Piperacillin/Tazobactam/Dextrose (Zosyn 3.375 Gm Premix) 50 mls @ 100 mls/hr IV.SIG Q6H [facility] Last Infusion: 07/05/18 11:40 Dose: Infused Insulin Human Regular (Novolin R Correctional Sugar Inj) 0 units SQ Q4HR [facility]; Protocol Last Admin: 07/05/18 10:06 Dose: Not Given Lactulose (Lactulose Liq) 30 ml PO DAILY PRN PRN Reason: SEVERE CONSITIPATION Levetiracetam (Keppra) 750 mg PO BID [facility] Last Admin: 07/05/18 08:12 Dose: 750 mg Levothyroxine Sodium (Synthroid) 75 mcg PO DAILY@0600 [facility] Last Admin: 07/05/18 05:22 Dose: 75 mcg Miscellaneous Information ([facility] Ordered Lab Info) 0 each OTHER ONCE ONE Stop: 07/06/18 10:46 Morphine Sulfate (Morphine Inj) 2 mg IV.PUSH Q4H PRN PRN Reason: PAIN SCALE 3 TO 5 Last Admin: 07/04/18 16:51 Dose: 2 mg Morphine Sulfate (Msir) 15 mg PO Q4H PRN PRN Reason: PAIN SCALE 1 TO 10 Last Admin: 07/05/18 12:23 Dose: 15 mg Pantoprazole Sodium (Protonix Inj) 40 mg IV.PUSH DAILY [facility] Last Admin: 07/05/18 08:12 Dose: 40 mg Patch Removal (Remove Old Patch) 1 each T-DERMAL Q72H [facility] Last Admin: 07/03/18 13:29 Dose: Not Given Patch Removal (Remove Old Patch) 1 each T-DERMAL Q72H [facility] Last Admin: 07/03/18 13:30 Dose: Not Given Pharmacy Profile Note (Vancomycin Consult Pharmacy) 1 each OTHER UNSCH PRN PRN Reason: Pharmacy to dose Quetiapine Fumarate (Seroquel) 400 mg PO BID [facility] Last Admin: 07/03/18 21:19 Dose: Not Given Sennosides (Senokot) 17.2 mg PO Q12H PRN PRN Reason: Moderate Constipation Sodium Chloride (Ns Flush) 2 ml IV.FLUSH PRN PRN PRN Reason: FLUSH AFTER USING IV ACCESS Physical Exam Vital signs: Vital Signs 07/04/18 13:04 07/04/18 16:00 07/04/18 20:00 Temperature 98.3 F 98.5 F Pulse Rate 60 59 L Respiratory Rate 17 16 16 Blood Pressure 137/89 Pulse Oximetry 99 98 07/05/18 00:00 07/05/18 04:00 07/05/18 04:52 Temperature 98.6 F 98.8 F Pulse Rate 60 71 68 Respiratory Rate 16 16 Blood Pressure 120/65 121/63 Pulse Oximetry 97 96 07/05/18 08:00 07/05/18 08:08 Temperature 97.3 F L Pulse Rate 59 L Respiratory Rate 18 Blood Pressure 130/81 Pulse Oximetry 98 97 Intake & Output 07/04/18 07/05/18 07/05/18 18:59 06:59 18:59 Intake Total 2350 / 2350 1350 / 1350 50 / 50 Output Total 250 / 250 Balance 2099 / 2099 1350 / 1350 50 / 50 Weight 81.1 kg Intake: IV 2350 / 2350 1350 / 1350 50 / 50 D5W/Normal Saline Inj 1,000 ML 2000 / 2000 1000 / 1000 @ 75 mls/hr IV.CONT .[id number] [facility] Rx#:[id number] Zosyn 3.375 GM Premix 50 ML @ 100 / 100 100 / 100 50 / 50 100 mls/hr IV.SIG Q6H [facility] Rx#: [id number] Vancomycin Inj 1,000 MG In NS 250 / 250 250 / 250 Inj 250 ML @ 250 mls/hr IV.SIG Q12H [facility] Rx#:[id number] Output: Urine 250 / 250 Other: Date of Last Bowel Movement 07/03/18 - Constitutional no acute distress - Routine HEENT Exam Head: Present: normocephalic Eye: Present: PERRL ENT: Present: mucous membranes moist Comments: ostomy to the left side of the neck - Routine Neck Exam Present: full ROM - Routine Respiratory Exam Present: CTA bilaterally - Routine Cardiovascular Exam Present: S1, S2 - Routine Abdominal Exam Present: normoactive bowel sounds - Routine Extremities Exam Present: pulses intact, normal capillary refill, calf tenderness. Absent: cyanosis, clubbing, edema - Routine Skin Exam Present: intact - Routine Neurological Exam Present: oriented X3 - Detailed Neurological Exam: Coma Scale Eye Opening: Spontaneous Verbal Response: Oriented Motor Response: Obey commands [place] Coma Scale Total: 15 - Routine Psychiatric Exam Present: normal affect Results 07/05/18 04:33 07/05/18 04:33 Cardiac Enzymes 07/04/18 07/05/18 Range/Units 12:00 04:33 AST 275 H 169 H (15-37) U/L CK-MB (CK-2) 4.7 H 3.2 (0.5-3.6) ng/mL Coagulation 07/03/18 07/03/18 Range/Units 18:49 18:49 PT 11.1 (9.8-11.6) sec APTT 29.4 Cancelled (23.4-31.7) sec CBC 07/04/18 07/05/18 Range/Units 12:00 04:33 WBC 3.2 L 3.5 L (4.0-11.0) th/mm3 RBC 3.25 L 3.91 L (4.50-5.90) mil/mm3 Hgb 10.7 L 12.6 L (13.0-17.0) gm/dL Hct 31.4 L 36.9 L (39.0-51.0) % Plt Count 65 L 105 L D (150-450) th/mm3 Neut # (Auto) 2.5 2.9 (1.8-7.7) th/mm3 Lymph # (Auto) 0.4 L 0.5 L (1.0-4.8) th/mm3 [place] # (Auto) 0.3 0.2 (0.0-0.9) th/mm3 Eos # (Auto) 0.0 0.0 (0.0-0.4) th/mm3 Baso # (Auto) 0.0 0.0 (0.0-0.2) th/mm3 Comprehensive Metabolic Panel 07/04/18 07/05/18 Range/Units 12:00 04:33 Sodium 148 H 147 H (136-145) meq/L Potassium 3.3 L 3.2 L (3.5-5.1) meq/L Chloride 108 H 109 H (98-107) meq/L Carbon Dioxide 33.4 H 30.4 (21.0-32.0) meq/L BUN 26 H 26 H (7-18) mg/dL Creatinine 0.78 0.77 (0.60-1.30) mg/dL Calcium 8.1 L 7.8 L (8.5-10.1) mg/dL AST 275 H 169 H (15-37) U/L ALT 269 H 237 H (12-78) U/L Alkaline Phosphatase 95 107 (45-117) U/L Total Protein 5.5 L D 5.9 L (6.4-8.2) g/dL Albumin 2.3 L 2.3 L (3.4-5.0) g/dL Intake and Output 07/04/18 07/05/18 07/05/18 22:59 06:59 14:59 Intake Total 1100 / 1100 1300 / 1300 50 / 50 Output Total 250 / 250 Balance 850 / 850 1300 / 1300 50 / 50 Intake: IV 1100 / 1100 1300 / 1300 50 / 50 D5W/Normal Saline Inj 1,000 ML 1000 / 1000 1000 / 1000 @ 75 mls/hr IV.CONT .[id number] [facility] Rx#:[id number] Zosyn 3.375 GM Premix 50 ML @ 100 / 100 50 / 50 50 / 50 100 mls/hr IV.SIG Q6H [facility] Rx#: [id number] Vancomycin Inj 1,000 MG In NS 250 / 250 Inj 250 ML @ 250 mls/hr IV.SIG Q12H [facility] Rx#:[id number] Output: Urine 250 / 250 Other: Weight 81.1 kg - Imaging and Cardiology Imaging: Impressions Head MRI 07/03/18 07:05 CONCLUSION: 1. Unremarkable MRI of the brain. Cervical Spine MRI 07/03/18 07:07 CONCLUSION: 1. Focal mild right lateral bulging at C5-6. 2. Otherwise, unremarkable exam for patient's age. Thoracic Spine MRI 07/03/18 07:07 CONCLUSION: 1. Mild broad-based bulging at T10-T11. 2. Mild disc space narrowing from T3 through T7. 3. Mild chronic loss of height of T9, T10 and T11. No abnormal bone marrow signal. Chest CT 07/04/18 00:00 CONCLUSION: 1. No evidence of Pancoast tumor as questioned. 2. Stable 4 mm nodule in the superior segment of the right lower lobe. Routine follow-up of sub-6 mm nodules is not recommended per 2017 Fleischner material. This nodule has been essentially stable for 18 months. 3. Small right and trace left simple appearing pleural effusions. Soft Tissue Neck CT 07/04/18 00:00 CONCLUSION: 1. I do not see evidence for esophageal rupture. 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 Patient remains stable from a cardiac standpoint. We will continue with current cardiac treatment plan. Normal pacemaker function, no pacemaker issues. Continue to increase patients activities. The patient was seen and evaluated by Dr. Robledo who participated in care, management and decision making. - Attending Attestation Patient seen and examined. I reviewed and agree with the evaluation and plan as presented. Continue current program. Neurology eval in progress. Normal pacemaker function.
--- NOTE | 2018-07-05 16:22 | P.PNIM ---
Subjective Interval history: Does want to try some ice chips if possible. Reports still bilateral lower extremity weakness has not improved since hospitalization. There is shooting pain over the left plantar area of the foot. There is numbness over the lateral portion of both legs. He denies any shortness of breath or chest pain. Has had difficulty swallowing prior to coming to the hospital. Discussed some history with mother at bedside. Physical Exam Vital signs: Last Vital Signs Temp 98.1 F 07/05/18 12:00 Pulse 59 L 07/05/18 12:00 Resp 18 07/05/18 12:00 BP 130/82 07/05/18 12:00 Pulse Ox 98 07/05/18 12:00 Intake & Output 07/03/18 07/04/18 07/05/18 07/06/18 06:59 06:59 06:59 06:59 Intake Total 3030 / 3030 4737 / 4737 3700 / 3700 300 / 300 Output Total 1320 / 1320 1650 / 1650 250 / 250 Balance 1710 / 1710 3087 / 3087 3450 / 3450 300 / 300 Weight 77.5 kg 78.1 kg 81.1 kg Narrative: GENERAL: Well-nourished pleasant male in no acute distress SKIN: Warm and dry. HEAD: Atraumatic. Normocephalic. EYES: Right pupil dilated 4cm, left 2cm. No scleral icterus. No injection or drainage. ENT: No nasal bleeding or discharge. Mucous membranes pink and moist. NECK: Trachea midline. No JVD. spit fistula esophagectomy with bag in place CARDIOVASCULAR: Regular rate and rhythm. RESPIRATORY: No accessory muscle use. Clear to auscultation. Breath sounds equal bilaterally. GASTROINTESTINAL: Abdomen soft, non-tender, nondistended. PEG tube in place, normoactive bowel sounds MUSCULOSKELETAL: Extremities without clubbing, cyanosis, or edema. No obvious deformities. NEUROLOGICAL: Awake and alert to person place time situation 3/5 LLE and 3/5 RLE. Normal speech. . Results Labs CBC & Chem 7: 07/05/18 04:33 07/05/18 04:33 Labs: Microbiology 06/30/18 13:36 Blood - Peripheral Aerobic Blood Culture - Final No growth in 5 days 06/30/18 13:36 Blood - Peripheral Anaerobic Blood Culture - Final No growth in 5 days 06/30/18 13:26 Blood - Peripheral Aerobic Blood Culture - Final No growth in 5 days 06/30/18 13:26 Blood - Peripheral Anaerobic Blood Culture - Final No growth in 5 days Imaging Imaging: Impressions Chest CT 07/04/18 00:00 CONCLUSION: 1. No evidence of Pancoast tumor as questioned. 2. Stable 4 mm nodule in the superior segment of the right lower lobe. Routine follow-up of sub-6 mm nodules is not recommended per 2017 Fleischner material. This nodule has been essentially stable for 18 months. 3. Small right and trace left simple appearing pleural effusions. Soft Tissue Neck CT 07/04/18 00:00 CONCLUSION: 1. I do not see evidence for esophageal rupture. Assessment and Plan (1) Acute renal failure: Code(s): N17.9 - Acute kidney failure, unspecified Status: Acute (2) Rhabdomyolysis: Code(s): M62.82 - Rhabdomyolysis Status: Acute (3) Boerhaave syndrome: Code(s): K22.3 - Perforation of esophagus Status: Acute (4) Addisons disease: Code(s): E27.1 - Primary adrenocortical insufficiency Status: Acute (5) Metabolic acidosis: Code(s): E87.2 - Acidosis Status: Acute (6) Hyperkalemia: Code(s): E87.5 - Hyperkalemia Status: Acute (7) Pacemaker: Code(s): Z95.0 - Presence of cardiac pacemaker Status: Acute (8) Bradycardia: Code(s): R00.1 - Bradycardia, unspecified Status: Acute Plan This has now trended down and now with some [id number] man with Neuro deficit with bilateral lower extremity weakness Rule out Guillain-Julio syndrome Appreciate input from neurology However secondary to initial presenting thrombocytopenia, and unable to perform LUMBAR PUNCTURE to further workup. Platelets has improved today and await neurology to determine timing of removal with LP. CT spine MRI, thoracic spine MRI unremarkable PT to treat and eval, will also consult occupational therapy. RF negative, ALAN negative, Lyme currently pending History of pituitary dysfunction. Adrenal insufficiency. Status post hypoglycemic episode. 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 Ornelas Hypokalemiareplete Hyponatremiachange to D5 half-normal saline Acute renal failure, Rhabdonow resolved Renal indices improving Leukocytosis with bandemia. This has now resolved. Patient developing now pancytopenia all the platelets is improving. Currently on Zosyn we will de-escalate to ceftriaxone and continue Vanco, blood culture: NGTD, Wound cx: [place], MRSA, Tamika Seizure disorder. Continue Keppra and gabapentin. Ativan 1 mg IV every 4hours p.r.n. for seizures. Appreciate input from neurology EEG noted and reviewed with no focal abnormality is noted and no seizure activity is seen. Head MRI unremarkable Left basilar airspace disease. Continue with oxygen and maintain sats >92%. Bronchodilators. CXR: Minimal left basilar airspace disease Pacemaker secondary to bradycardia. Chauffeur [employer] to reset pacemaker prior to MRI. History of Boerhaave syndrome with spit fistula esophagectomy. Previous J-tube placement. Elevated liver enzymes. Hep C Hepatitis profile: + Hep C Ig ab US abdomen: Hepatosplenomegaly On Protonix 40 mg IV daily for GI prophylaxis. 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 At this time will not pursue modified barium swallow until neuromuscular status workup is completed. GI prophylaxis- Protonix 40 mg daily DVT prophylaxis- SCD, not on AC prophylaxis due to thrombocytopenia, consider starting if platelets remain stable and improved overnight. Discussed with mom at bedside. Progress Note: Quality VTE Deep Vein Thrombosis/Pulmonary Embolism Present on Admission: No _ (1) Acute renal failure Qualifiers: Acute renal failure type: (2) Rhabdomyolysis Qualifiers: Rhabdomyolysis type: Encounter type:
[2018-07-05] MEDS ORDERED: Potassium Chlor 20 mEq Premix 20 MEQ/100 ML PIGGYBACK IV.SIG ONE (17:00)
[2018-07-05] MEDS: Dextrose 5%/NaCl 0.45% Inj 1,000 ML IV.CONT SCH (17:49)
--- NOTE | 2018-07-05 20:13 | P.PNNEU ---
Subjective Subjective Comments: still weak RLE. Left ar strength improving. having trouble sleeping with seroquel on hold Active Medications: Active Medications Al Hydroxide/Mg Hydroxide (Milk Of Magnesia Liq) 30 ml PO Q12H PRN PRN Reason: Mild Constipation Last Admin: 07/05/18 11:14 Dose: 30 ml Albuterol (Duoneb Neb (Prn)) 1 ampul NEB Q2HR NEB PRN PRN Reason: WHEEZING Last Admin: 07/05/18 04:47 Dose: 1 ampul Albuterol (Duoneb Neb (Felipa)) 1 ampul NEB Q12HR NEB [facility] Last Admin: 07/05/18 08:07 Dose: Not Given Bisacodyl (Dulcolax Supp) 10 mg RECTAL DAILY PRN PRN Reason: SEVERE CONSITIPATION Chlorhexidine Gluconate (Chlorhexidine 2% Cloth) 3 pack TOPICAL DAILY@0400 [facility] Stop: 07/06/18 03:59 Last Admin: 07/05/18 03:30 Dose: Not Given Chlorhexidine Gluconate (Chlorhexidine 2% Cloth) 3 pack TOPICAL DAILY@0400 PRN PRN Reason: Extra cloth needed Stop: 07/06/18 03:59 Dextrose (D50w Vial) 50 ml IV.PUSH UNSCH PRN PRN Reason: PER HYPOGLYCEMIA PROTOCOL Fentanyl (Duragesic 25 Mcg Patch.72hr) 1 patch T-DERMAL Q72H [facility] Last Admin: 07/03/18 13:07 Dose: 1 patch Gabapentin (Neurontin) 300 mg PO TID [facility] Last Admin: 07/05/18 18:02 Dose: 300 mg Glucagon (Glucagon Inj) 1 mg OTHER PRN PRN PRN Reason: for Hypoglycemia Protocol Hydrocortisone Sodium Succinate (Solucortef Inj) 50 mg IV.PUSH Q8HR [facility] Last Admin: 07/05/18 13:34 Dose: 50 mg Vancomycin HCl 1,000 mg/ (Sodium Chloride) 250 mls @ 250 mls/hr IV.SIG Q12H [facility] Last Infusion: 07/05/18 13:33 Dose: Infused Ceftriaxone Sodium 1,000 mg/ (Sodium Chloride) 100 mls @ 200 mls/hr IV.SIG Q24H [facility] Stop: 07/10/18 16:59 Last Infusion: 07/05/18 18:30 Dose: Infused Dextrose/Sodium Chloride (D5w/1/2 Ns Inj) 1,000 mls @ 75 mls/hr IV.CONT .[id number] [facility] Last Admin: 07/05/18 17:49 Dose: 75 mls/hr Insulin Human Regular (Novolin R Correctional Sugar Inj) 0 units SQ Q4HR [facility]; Protocol Last Admin: 07/05/18 19:26 Dose: Not Given Lactulose (Lactulose Liq) 30 ml PO DAILY PRN PRN Reason: SEVERE CONSITIPATION Levetiracetam (Keppra) 750 mg PO BID [facility] Last Admin: 07/05/18 08:12 Dose: 750 mg Levothyroxine Sodium (Synthroid) 75 mcg PO DAILY@0600 [facility] Last Admin: 07/05/18 05:22 Dose: 75 mcg Miscellaneous Information ([facility] Ordered Lab Info) 0 each OTHER ONCE ONE Stop: 07/06/18 10:46 Morphine Sulfate (Morphine Inj) 2 mg IV.PUSH Q4H PRN PRN Reason: PAIN SCALE 3 TO 5 Last Admin: 07/04/18 16:51 Dose: 2 mg Morphine Sulfate (Msir) 15 mg PO Q4H PRN PRN Reason: PAIN SCALE 1 TO 10 Last Admin: 07/05/18 16:23 Dose: 15 mg Pantoprazole Sodium (Protonix Inj) 40 mg IV.PUSH DAILY [facility] Last Admin: 07/05/18 08:12 Dose: 40 mg Patch Removal (Remove Old Patch) 1 each T-DERMAL Q72H [facility] Last Admin: 07/03/18 13:29 Dose: Not Given Patch Removal (Remove Old Patch) 1 each T-DERMAL Q72H [facility] Last Admin: 07/03/18 13:30 Dose: Not Given Pharmacy Profile Note (Vancomycin Consult Pharmacy) 1 each OTHER UNSCH PRN PRN Reason: Pharmacy to dose Quetiapine Fumarate (Seroquel) 400 mg PO BID [facility] Last Admin: 07/03/18 21:19 Dose: Not Given Quetiapine Fumarate (Seroquel) 100 mg PO HS [facility] Sennosides (Senokot) 17.2 mg PO Q12H PRN PRN Reason: Moderate Constipation Sodium Chloride (Ns Flush) 2 ml IV.FLUSH PRN PRN PRN Reason: FLUSH AFTER USING IV ACCESS Allergies/Adverse Reactions: Allergies Allergy/AdvReac Type Severity Reaction Status Date / Time codeine Allergy Severe Hives Unverified 06/30/18 10:28 tramadol Allergy Severe seizure Unverified 08/04/17 18:49 cyclobenzaprine Allergy Unknown Unresponsiv Verified 06/30/18 10:28 e fluvoxamine Allergy Unknown Unresponsiv Verified 06/30/18 10:28 e zolpidem Allergy Unknown Unconscious Verified 06/30/18 10:28 Beta-Blockers Allergy Anaphylaxis Verified 06/30/18 10:28 (Beta-Adrenergic Bloc MRI PRECAUTION AdvReac Severe NON REVO Uncoded 08/04/17 18:49 PACEMAKER Physical Exam Vital signs: Vital Signs 07/05/18 00:00 07/05/18 04:00 07/05/18 04:52 Temperature 98.6 F 98.8 F Pulse Rate 60 71 68 Respiratory Rate 16 16 Blood Pressure 120/65 121/63 Pulse Oximetry 97 96 07/05/18 08:00 07/05/18 08:08 07/05/18 12:00 Temperature 97.3 F L 98.1 F Pulse Rate 59 L 59 L Respiratory Rate 18 18 Blood Pressure 130/81 130/82 Pulse Oximetry 98 97 98 07/05/18 16:00 Temperature 98 F Pulse Rate 59 L Respiratory Rate 18 Blood Pressure 135/82 Pulse Oximetry 97 Intake & Output 07/05/18 07/05/18 07/06/18 06:59 18:59 06:59 Intake Total 1350 / 1350 1250 / 1250 Balance 1350 / 1350 1250 / 1250 Weight 81.1 kg Intake: IV 1350 / 1350 1250 / 1250 D5W/Normal Saline Inj 1,000 ML 1000 / 1000 800 / 800 @ 75 mls/hr IV.CONT .[id number] [facility] Rx#:[id number] Zosyn 3.375 GM Premix 50 ML @ 100 / 100 100 / 100 100 mls/hr IV.SIG Q6H [facility] Rx#: [id number] Vancomycin Inj 1,000 MG In NS 250 / 250 250 / 250 Inj 250 ML @ 250 mls/hr IV.SIG Q12H [facility] Rx#:[id number] Rocephin Inj 1,000 MG In NS Inj 100 / 100 100 ML @ 200 mls/hr IV.SIG Q24H [facility] Rx#:[id number] Other: Date of Last Bowel Movement 07/03/18 - Routine Neurological Exam alert, speech normal CN right pupil 4 mm reactive. Left pupil 2-3 mm reactive. Left ptosis EOM intact MOTOR 4+/5 LUE and LLE. 4-/5 RLE. 5/5 RUE Objective Laboratory Results - last 24 hr 07/04/18 07/04/18 07/05/18 05:19 23:38 03:28 WBC RBC Hgb Hct MCV MCH MCHC RDW Plt Count MPV Prelim Diff (Auto) Neut % (Auto) Lymph % (Auto) [place] % (Auto) Eos % (Auto) Baso % (Auto) Neut # (Auto) Lymph # (Auto) [place] # (Auto) Eos # (Auto) Baso # (Auto) WBC Differential Diff Scan Differential Comment Sodium Potassium Chloride Carbon Dioxide Anion Gap BUN Creatinine Estimated GFR POC Glucose 108 125 H Random Glucose Calcium Total Bilirubin AST ALT Alkaline Phosphatase Total Creatine Kinase CK-MB (CK-2) CK-MB (CK-2) % Total Protein Albumin ALAN Screen Neg 07/05/18 07/05/18 07/05/18 04:33 04:33 07:52 WBC 3.5 L RBC 3.91 L Hgb 12.6 L Hct 36.9 L MCV 94.4 MCH 32.3 MCHC 34.3 RDW 15.6 Plt Count 105 L D MPV 9.8 Prelim Diff (Auto) Slide review pending Neut % (Auto) 81.7 H Lymph % (Auto) 13.0 [place] % (Auto) 4.9 Eos % (Auto) 0.3 Baso % (Auto) 0.1 Neut # (Auto) 2.9 Lymph # (Auto) 0.5 L [place] # (Auto) 0.2 Eos # (Auto) 0.0 Baso # (Auto) 0.0 WBC Differential . Diff Scan Auto diff confirmed Differential Comment . Sodium 147 H Potassium 3.2 L Chloride 109 H Carbon Dioxide 30.4 Anion Gap 8 BUN 26 H Creatinine 0.77 Estimated GFR Greater than 89 POC Glucose 121 H Random Glucose 122 H Calcium 7.8 L Total Bilirubin 0.4 AST 169 H ALT 237 H Alkaline Phosphatase 107 Total Creatine Kinase 1202 H CK-MB (CK-2) 3.2 CK-MB (CK-2) % 0.3 Total Protein 5.9 L Albumin 2.3 L ALAN Screen 07/05/18 07/05/18 07/05/18 12:32 16:44 20:07 WBC RBC Hgb Hct MCV MCH MCHC RDW Plt Count MPV Prelim Diff (Auto) Neut % (Auto) Lymph % (Auto) [place] % (Auto) Eos % (Auto) Baso % (Auto) Neut # (Auto) Lymph # (Auto) [place] # (Auto) Eos # (Auto) Baso # (Auto) WBC Differential Diff Scan Differential Comment Sodium Potassium Chloride Carbon Dioxide Anion Gap BUN Creatinine Estimated GFR POC Glucose 117 H 120 H 107 Random Glucose Calcium Total Bilirubin AST ALT Alkaline Phosphatase Total Creatine Kinase CK-MB (CK-2) CK-MB (CK-2) % Total Protein Albumin ALAN Screen Microbiology 06/30/18 13:36 Aerobic Blood Culture - Final Blood - Peripheral No growth in 5 days Anaerobic Blood Culture - Final No growth in 5 days 06/30/18 13:26 Aerobic Blood Culture - Final Blood - Peripheral No growth in 5 days Anaerobic Blood Culture - Final No growth in 5 days Review/Management - Diagnosis (1) Myelopathy Code(s): G95.9 - Disease of spinal cord, unspecified Status: Acute Current Visit: Yes - Review/Management Plan: Lumbar puncture--r/o guillain barre, Joy-Mac syndrome, MS
[2018-07-05] MEDS: QUEtiapine 100 MG Tablet PO SCH (20:43)
[2018-07-06] MEDS: Morphine Sulfate 15 MG IR Tablet PO PRN ×6 (00:51→21:13)
[2018-07-06] MEDS: Insulin NovoLIN Regular Correctional Sugar Inj SQ SCH ×6 (00:58→21:22)
[2018-07-06] MEDS: Levothyroxine 75 MCG Tablet PO SCH (05:01)
[2018-07-06] MEDS: Hydrocortisone Sod Succinate 100 MG Vial IV.PUSH SCH ×3 (05:01→21:11)
[2018-07-06] MEDS: Dextrose 5%/NaCl 0.45% Inj 1,000 ML IV.CONT SCH ×4 (05:48→22:49)
[2018-07-06] MEDS: levETIRAcetam 250 MG Tablet PO SCH ×2 (08:58→21:13)
[2018-07-06] MEDS: Gabapentin 300 MG Capsule PO SCH ×3 (08:58→17:00)
[2018-07-06] MEDS: Pantoprazole Inj 40 MG Vial IV.PUSH SCH (08:58)
[2018-07-06 09:36] LABS: Hematocrit 38.9 % (39.0-51.0); Hemoglobin 13.1 gm/dL (13.0-17.0); Mean Corpuscular HGB Conc 33.6 % (32.0-36.0); Mean Corpuscular Hemoglobin 32.5 pg (27.0-34.0); Mean Corpuscular Volume 96.9 fL (80.0-100.0); Mean Platelet Volume 9.9 fL (7.0-11.0); Platelet Count 120 th/mm3 (150-450); Red Blood Count 4.02 mil/mm3 (4.50-5.90); Red Cell Distribution Width 15.5 % (11.6-17.2); White Blood Count 4.7 th/mm3 (4.0-11.0)
[2018-07-06 10:04] LABS: Anion Gap 6 meq/L (5-15); Blood Urea Nitrogen 23 mg/dL (7-18); Calcium 7.1 mg/dL (8.5-10.1); Carbon Dioxide 29.4 meq/L (21.0-32.0); Chloride 109 meq/L (98-107); Glomerular Filtration Rate Greater Than 89 mL/min (>89); Glucose,Random 109 mg/dL (74-106); Potassium 3.8 meq/L (3.5-5.1); Sodium 144 meq/L (136-145)
[2018-07-06 10:16] LABS: Calcium-Albumin Corrected 8.7 mg/dL (8.5-10.1)
[2018-07-06 10:24] LABS: Eosinophils 1 % (0-4); Lymphocytes 6 % (9-44); Monocytes 8 % (0-8); Platelet Morphology Normal (Normal)
[2018-07-06] MEDS ORDERED: Pharmacy Ordered Lab Info OTHER ONE (10:45)
--- NOTE | 2018-07-06 12:26 | P.PNIM ---
Subjective Interval history: Patient reports has bilateral lower extremity weakness is not better. Still not much movement over the right leg. Reports pain is worse and is needing breakthrough morphine through the IV. He is doing okay with ice chips. Reports no shortness of breath or chest pain. Is able to move bilateral upper extremities. Tolerating tube feeds. Physical Exam Vital signs: Last Vital Signs Temp 97.8 F 07/06/18 08:00 Pulse 60 07/06/18 08:29 Resp 16 07/06/18 08:29 BP 121/89 07/06/18 08:00 Pulse Ox 97 07/06/18 08:29 Intake & Output 07/04/18 07/05/18 07/06/18 07/07/18 06:59 06:59 06:59 06:59 Intake Total 4737 / 4737 4232 / 4232 1500 / 1500 Output Total 1650 / 1650 550 / 550 Balance 3087 / 3087 3682 / 3682 1500 / 1500 Weight 78.1 kg 81.1 kg 82.9 kg Narrative: GENERAL: Well-nourished pleasant male in no acute distress SKIN: Warm and dry. HEAD: Atraumatic. Normocephalic. EYES: Right pupil dilated 4cm, left 2cm. No scleral icterus. No injection or drainage. ENT: No nasal bleeding or discharge. Mucous membranes pink and moist. NECK: Trachea midline. No JVD. spit fistula esophagectomy with ostomy bag in place CARDIOVASCULAR: Regular rate and rhythm. RESPIRATORY: No accessory muscle use. Clear to auscultation. Breath sounds equal bilaterally. GASTROINTESTINAL: Abdomen soft, non-tender, nondistended. PEG tube in place, normoactive bowel sounds MUSCULOSKELETAL: Extremities without clubbing, cyanosis, or edema. No obvious deformities. NEUROLOGICAL: Awake and alert to person place time situation 3/5 LLE and not much movement in the right lower extremity and cannot lift on her own. Bilateral upper extremity 5 out of 5 motor strength. Normal speech. . 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 Jones However secondary to initial presenting thrombocytopenia, was initially not able to perform lumbar puncture Platelets has improved and await radiology to move forward with performing lumbar puncture for further evaluation and workup. CT spine MRI, thoracic spine MRI unremarkable PT and OT to treat and eval, RF negative, ALAN negative, Lyme currently pending History of pituitary dysfunction. Adrenal insufficiency. Status post hypoglycemic episode. On hydrocortisone 50 mg IV every 8 hours and D5NS for hypoglycemic episodes Accu-Chek every 4 hours Has followed up with quality engineer medical device as an outpatient Dr. Ornelas Hypokalemiareplete Hypernatremiachange to D5 half-normal saline, levels imprvoed 144 Acute renal failure, Rhabdonow resolved Renal indices improving Leukocytosis with bandemia. This has now resolved. Patient had previous pancytopenia, now improving Currently on Zosyn we will de-escalate to ceftriaxone and continue Vanco, blood culture: NGTD, Wound cx: [place], MRSA, Tamika Seizure disorder. Continue Keppra and gabapentin. Ativan 1 mg IV every 4hours p.r.n. for seizures. Appreciate input from neurology EEG noted and reviewed with no focal abnormality is noted and no seizure activity is seen. Head MRI unremarkable Left basilar airspace disease. Continue with oxygen and maintain sats >92%. Bronchodilators. CXR: Minimal left basilar airspace disease Pacemaker secondary to bradycardia. [employer] to reset pacemaker prior to MRI. History of Boerhaave syndrome with spit fistula esophagectomy. Previous J-tube placement. Elevated liver enzymes. Hep C Hepatitis profile: + Hep C Ig ab US abdomen: Hepatosplenomegaly On Protonix 40 mg IV daily for GI prophylaxis, change to PO. 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 At this time will not pursue modified barium swallow until neuromuscular status workup is completed. GI prophylaxis- Protonix 40 mg daily DVT prophylaxis- SCD, not on AC prophylaxis due to thrombocytopenia, consider starting if platelets remain stable and improved overnight. Discussed with mom at bedside. Progress Note: Quality VTE Deep Vein Thrombosis/Pulmonary Embolism Present on Admission: No _ (1) Acute renal failure Qualifiers: Acute renal failure type: (2) Rhabdomyolysis Qualifiers: Rhabdomyolysis type: Encounter type:
[2018-07-06] MEDS: Vancomycin Inj 1,000 MG in Sodium Chlor 0.9% Inj 250 ML IV.SIG SCH (13:02)
--- NOTE | 2018-07-06 13:44 | P.PNCA ---
Subjective Interval history: Patient denies any CP, pressure, dizziness or edema. Patient did complain of palpitations and SOB. Patient states that the palpitations are gone and the SOB is nothing new for him. He does states that it has improved. Medications and Allergies Allergies Allergy/AdvReac Type Severity Reaction Status Date / Time codeine Allergy Severe Hives Unverified 06/30/18 10:28 tramadol Allergy Severe seizure Unverified 08/04/17 18:49 cyclobenzaprine Allergy Unknown Unresponsiv Verified 06/30/18 10:28 e fluvoxamine Allergy Unknown Unresponsiv Verified 06/30/18 10:28 e zolpidem Allergy Unknown Unconscious Verified 06/30/18 10:28 Beta-Blockers Allergy Anaphylaxis Verified 06/30/18 10:28 (Beta-Adrenergic Bloc MRI PRECAUTION AdvReac Severe NON REVO Uncoded 08/04/17 18:49 PACEMAKER Home Medications Medication Instructions Recorded Confirmed Type albuterol sulfate [Proventil HFA] INHALATION Q3-4H PRN 06/30/18 History fentanyl 1 patch TRANSDERMAL Q72H 06/30/18 06/30/18 History gabapentin 300 mg PO TID 06/30/18 06/30/18 History levetiracetam [Keppra] 750 mg PO BID 06/30/18 06/30/18 History levothyroxine [Synthroid] 75 mcg PO DAILY 06/30/18 06/30/18 History lorazepam [Ativan] 1 mg PO BID 06/30/18 06/30/18 History morphine 15 mg PO Q4-6H PRN 06/30/18 06/30/18 History quetiapine [Seroquel] 400 mg PO BID 06/30/18 06/30/18 History Active Medications: Active Medications Al Hydroxide/Mg Hydroxide (Milk Of Magnesia Liq) 30 ml PO Q12H PRN PRN Reason: Mild Constipation Last Admin: 07/05/18 11:14 Dose: 30 ml Albuterol (Duoneb Neb (Prn)) 1 ampul NEB Q2HR [facility]B PRN PRN Reason: WHEEZING Last Admin: 07/05/18 04:47 Dose: 1 ampul Albuterol (Duoneb Neb (Felipa)) 1 ampul NEB Q12HR [facility] Last Admin: 07/06/18 08:28 Dose: 1 ampul Bisacodyl (Dulcolax Supp) 10 mg RECTAL DAILY PRN PRN Reason: SEVERE CONSITIPATION Dextrose (D50w Vial) 50 ml IV.PUSH UNSCH PRN PRN Reason: PER HYPOGLYCEMIA PROTOCOL Fentanyl (Duragesic 25 Mcg Patch.72hr) 1 patch T-DERMAL Q72H [facility] Last Admin: 07/03/18 13:07 Dose: 1 patch Gabapentin (Neurontin) 300 mg PO TID [facility] Last Admin: 07/06/18 08:58 Dose: 300 mg Glucagon (Glucagon Inj) 1 mg OTHER PRN PRN PRN Reason: for Hypoglycemia Protocol Hydrocortisone Sodium Succinate (Solucortef Inj) 50 mg IV.PUSH Q8HR [facility] Last Admin: 07/06/18 05:01 Dose: 50 mg Vancomycin HCl 1,000 mg/ (Sodium Chloride) 250 mls @ 250 mls/hr IV.SIG Q12H [facility] Last Admin: 07/06/18 13:02 Dose: 250 mls/hr Ceftriaxone Sodium 1,000 mg/ (Sodium Chloride) 100 mls @ 200 mls/hr IV.SIG Q24H [facility] Stop: 07/10/18 16:59 Last Infusion: 07/05/18 18:30 Dose: Infused Dextrose/Sodium Chloride (D5w/1/2 Ns Inj) 1,000 mls @ 75 mls/hr IV.CONT .[id number] [facility] Last Admin: 07/06/18 09:27 Dose: 75 mls/hr Insulin Human Regular (Novolin R Correctional Sugar Inj) 0 units SQ Q4HR [facility]; Protocol Last Admin: 07/06/18 13:02 Dose: Not Given Lactulose (Lactulose Liq) 30 ml PO DAILY PRN PRN Reason: SEVERE CONSITIPATION Last Admin: 07/06/18 04:46 Dose: 30 ml Levetiracetam (Keppra) 750 mg PO BID [facility] Last Admin: 07/06/18 08:58 Dose: 750 mg Levothyroxine Sodium (Synthroid) 75 mcg PO DAILY@0600 [facility] Last Admin: 07/06/18 05:01 Dose: 75 mcg Morphine Sulfate (Msir) 15 mg PO Q4H PRN PRN Reason: PAIN SCALE 1 TO 10 Last Admin: 07/06/18 13:03 Dose: 15 mg Morphine Sulfate (Morphine Inj) 2 mg IV.PUSH Q4H PRN PRN Reason: BREAKTHROUGH PAIN Pantoprazole Sodium (Protonix) 40 mg PO DAILY [facility] Patch Removal (Remove Old Patch) 1 each T-DERMAL Q72H [facility] Last Admin: 07/03/18 13:29 Dose: Not Given Patch Removal (Remove Old Patch) 1 each T-DERMAL Q72H [facility] Last Admin: 07/03/18 13:30 Dose: Not Given Pharmacy Profile Note (Vancomycin Consult Pharmacy) 1 each OTHER UNSCH PRN PRN Reason: Pharmacy to dose Quetiapine Fumarate (Seroquel) 400 mg PO BID [facility] Last Admin: 07/03/18 21:19 Dose: Not Given Quetiapine Fumarate (Seroquel) 100 mg PO HS [facility] Last Admin: 07/05/18 20:43 Dose: 100 mg Sennosides (Senokot) 17.2 mg PO Q12H PRN PRN Reason: Moderate Constipation Sodium Chloride (Ns Flush) 2 ml IV.FLUSH PRN PRN PRN Reason: FLUSH AFTER USING IV ACCESS Last Admin: 07/05/18 21:05 Dose: 2 ml Physical Exam Vital signs: Vital Signs 07/05/18 16:00 07/05/18 20:00 07/05/18 20:15 Temperature 98 F 97.8 F Pulse Rate 59 L 59 L 60 Respiratory Rate 18 16 16 Blood Pressure 135/82 136/85 Pulse Oximetry 97 98 98 07/05/18 23:58 07/06/18 00:00 07/06/18 00:49 Temperature 98 F 97.8 F Pulse Rate 59 L 63 60 Respiratory Rate 19 18 Blood Pressure 132/80 131/77 Pulse Oximetry 98 95 07/06/18 04:00 07/06/18 04:05 07/06/18 08:00 Temperature 97.7 F 97.8 F Pulse Rate 63 67 60 Respiratory Rate 18 20 Blood Pressure 129/78 121/89 Pulse Oximetry 96 95 07/06/18 08:29 Temperature Pulse Rate 60 Respiratory Rate 16 Blood Pressure Pulse Oximetry 97 Intake & Output 07/05/18 07/06/18 07/06/18 18:59 06:59 18:59 Intake Total 1250 / 1250 250 / 250 Balance 1250 / 1250 250 / 250 Weight 82.9 kg Intake: IV 1250 / 1250 250 / 250 D5W/Normal Saline Inj 1,000 ML 800 / 800 @ 75 mls/hr IV.CONT .[id number] [facility] Rx#:[id number] Zosyn 3.375 GM Premix 50 ML @ 100 / 100 100 mls/hr IV.SIG Q6H [facility] Rx#: [id number] Vancomycin Inj 1,000 MG In NS 250 / 250 250 / 250 Inj 250 ML @ 250 mls/hr IV.SIG Q12H [facility] Rx#:[id number] Rocephin Inj 1,000 MG In NS Inj 100 / 100 100 ML @ 200 mls/hr IV.SIG Q24H [facility] Rx#:[id number] Other: Date of Last Bowel Movement 07/03/18 - Constitutional no acute distress - Routine HEENT Exam Head: Present: normocephalic Eye: Present: PERRL ENT: Present: mucous membranes moist - Routine Neck Exam Present: full ROM - Routine Respiratory Exam Present: CTA bilaterally - Routine Cardiovascular Exam Present: S1, S2. Absent: murmur, gallop, rubs - Routine Abdominal Exam Present: normoactive bowel sounds - Routine Extremities Exam Present: pulses intact, normal capillary refill. Absent: cyanosis, clubbing, edema Comments: right foot slightly turned inward. - Routine Skin Exam Present: intact - Routine Neurological Exam Present: oriented X3 - Detailed Neurological Exam: Coma Scale Eye Opening: Spontaneous Verbal Response: Oriented Motor Response: Obey commands Dolly Coma Scale Total: 15 - Routine Psychiatric Exam Present: normal affect Results 07/06/18 08:04 07/06/18 08:04 Cardiac Enzymes 07/04/18 07/05/18 Range/Units 12:00 04:33 AST 169 H (15-37) U/L CK-MB (CK-2) 4.7 H 3.2 (0.5-3.6) ng/mL CBC 07/04/18 07/05/18 07/06/18 Range/Units 12:00 04:33 08:04 WBC 3.2 L 3.5 L 4.7 (4.0-11.0) th/mm3 RBC 3.25 L 3.91 L 4.02 L (4.50-5.90) mil/mm3 Hgb 10.7 L 12.6 L 13.1 (13.0-17.0) gm/dL Hct 31.4 L 36.9 L 38.9 L (39.0-51.0) % Plt Count 65 L 105 L D 120 L (150-450) th/mm3 Neut # (Auto) 2.5 2.9 (1.8-7.7) th/mm3 Lymph # (Auto) 0.4 L 0.5 L (1.0-4.8) th/mm3 [place] # (Auto) 0.3 0.2 (0.0-0.9) th/mm3 Eos # (Auto) 0.0 0.0 (0.0-0.4) th/mm3 Baso # (Auto) 0.0 0.0 (0.0-0.2) th/mm3 Comprehensive Metabolic Panel 07/04/18 07/05/18 07/06/18 Range/Units 12:00 04:33 08:04 Sodium 147 H 144 (136-145) meq/L Potassium 3.2 L 3.8 (3.5-5.1) meq/L Chloride 109 H 109 H (98-107) meq/L Carbon Dioxide 30.4 29.4 (21.0-32.0) meq/L BUN 26 H 23 H (7-18) mg/dL Creatinine 0.77 0.53 L (0.60-1.30) mg/dL Calcium 7.8 L 7.1 L* (8.5-10.1) mg/dL AST 169 H (15-37) U/L ALT 269 H 237 H (12-78) U/L Alkaline Phosphatase 95 107 (45-117) U/L Total Protein 5.5 L D 5.9 L (6.4-8.2) g/dL Albumin 2.3 L 2.0 L (3.4-5.0) g/dL Intake and Output 07/05/18 07/06/18 07/06/18 22:59 06:59 14:59 Intake Total 950 / 950 250 / 250 Balance 950 / 950 250 / 250 Intake: IV 950 / 950 250 / 250 D5W/Normal Saline Inj 1,000 ML 800 / 800 @ 75 mls/hr IV.CONT .[id number] [facility] Rx#:[id number] Zosyn 3.375 GM Premix 50 ML @ 50 / 50 100 mls/hr IV.SIG Q6H [facility] Rx#: [id number] Vancomycin Inj 1,000 MG In NS 250 / 250 Inj 250 ML @ 250 mls/hr IV.SIG Q12H [facility] Rx#:[id number] Rocephin Inj 1,000 MG In NS Inj 100 / 100 100 ML @ 200 mls/hr IV.SIG Q24H [facility] Rx#:[id number] Other: Weight 82.9 kg - Imaging and Cardiology Imaging: Impressions Chest CT 07/04/18 00:00 CONCLUSION: 1. No evidence of Pancoast tumor as questioned. 2. Stable 4 mm nodule in the superior segment of the right lower lobe. Routine follow-up of sub-6 mm nodules is not recommended per 2017 Fleischner material. This nodule has been essentially stable for 18 months. 3. Small right and trace left simple appearing pleural effusions. Soft Tissue Neck CT 07/04/18 00:00 CONCLUSION: 1. I do not see evidence for esophageal rupture. Assessment and Plan - Assessment (1) Acute renal failure Code(s): N17.9 - Acute kidney failure, unspecified Status: Acute (2) Rhabdomyolysis Code(s): M62.82 - Rhabdomyolysis Status: Acute (3) Boerhaave syndrome Code(s): K22.3 - Perforation of esophagus Status: Acute (4) Addisons disease Code(s): E27.1 - Primary adrenocortical insufficiency Status: Acute (5) Metabolic acidosis Code(s): E87.2 - Acidosis Status: Acute (6) Hyperkalemia Code(s): E87.5 - Hyperkalemia Status: Acute (7) Pacemaker Code(s): Z95.0 - Presence of cardiac pacemaker Status: Acute (8) Bradycardia Code(s): R00.1 - Bradycardia, unspecified Status: Acute - Plan No new cardiac issues at this time, we will continue with current cardiac treatment plan and adjust as needed. Right foot continues to turn inward slightly, neurology evaluation in progress. Pacemaker was evaluated, normal pacemaker function. Continue to encourage activity as patient tolerates. The patient was seen and evaluated by Dr. Robledo who participated in care, management and decision making. - Attending Attestation Patient seen and examined. I reviewed and agree with the evaluation and plan as presented. Continue current program. Neurology evaluation in progress.
[2018-07-06] MEDS: Morphine Sulfate Inj 2 MG/ML Vial IV.PUSH PRN ×3 (14:13→22:49)
[2018-07-06] MEDS: QUEtiapine 100 MG Tablet PO SCH (21:13)
[2018-07-06] MEDS: Vancomycin Inj 1,250 MG in Sodium Chlor 0.9% Inj 250 ML IV.SIG SCH (22:49)
[2018-07-07] MEDS: Morphine Sulfate 15 MG IR Tablet PO PRN ×6 (01:23→21:54)
[2018-07-07] MEDS: Insulin NovoLIN Regular Correctional Sugar Inj SQ SCH ×6 (01:24→21:55)
[2018-07-07] MEDS: Morphine Sulfate Inj 2 MG/ML Vial IV.PUSH PRN ×5 (03:36→19:56)
[2018-07-07] MEDS: Levothyroxine 75 MCG Tablet PO SCH (05:26)
[2018-07-07] MEDS: Hydrocortisone Sod Succinate 100 MG Vial IV.PUSH SCH ×3 (05:27→21:54)
[2018-07-07 06:25] LABS: Baso % (Auto) 0.1 % (0.0-2.0); Eos % (Auto) 0.8 % (0.0-4.0); Hematocrit 42.1 % (39.0-51.0); Lymph # (Auto) 0.9 th/mm3 (1.0-4.8); Lymph % (Auto) 16.7 % (9.0-44.0); Mean Corpuscular HGB Conc 33.2 % (32.0-36.0); Mean Corpuscular Hemoglobin 32.1 pg (27.0-34.0); Mean Corpuscular Volume 96.8 fL (80.0-100.0); Mean Platelet Volume 9.4 fL (7.0-11.0); Mono # (Auto) 0.4 th/mm3 (0.0-0.9); Neut # (Auto) 4.2 th/mm3 (1.8-7.7); Neut % (Auto) 75.4 % (16.0-70.0); Platelet Count 161 th/mm3 (150-450); Red Blood Count 4.35 mil/mm3 (4.50-5.90); White Blood Count 5.6 th/mm3 (4.0-11.0)
[2018-07-07 06:43] LABS: Anion Gap 4 meq/L (5-15); Blood Urea Nitrogen 22 mg/dL (7-18); Calcium 7.5 mg/dL (8.5-10.1); Carbon Dioxide 29.7 meq/L (21.0-32.0); Chloride 109 meq/L (98-107); Glomerular Filtration Rate Greater Than 89 mL/min (>89); Glucose,Random 102 mg/dL (74-106); Potassium 3.8 meq/L (3.5-5.1); Sodium 143 meq/L (136-145)
[2018-07-07 07:19] LABS: Lymphocytes 20 % (9-44); Metamyelocytes 2 % (0-1); Monocytes 8 % (0-8); Platelet Estimate Normal (Normal); Platelet Morphology Normal (Normal); RBC Morphology Normal (Normal)
[2018-07-07] MEDS: levETIRAcetam 250 MG Tablet PO SCH ×2 (09:49→21:55)
[2018-07-07] MEDS: Gabapentin 300 MG Capsule PO SCH ×3 (09:49→18:10)
[2018-07-07] MEDS: Vancomycin Inj 1,250 MG in Sodium Chlor 0.9% Inj 250 ML IV.SIG SCH ×2 (11:37→22:59)
--- NOTE | 2018-07-07 12:20 | P.PNIM ---
Subjective Interval history: Feels about the same with no improvement in his weakness of the lower legs. Reports pain is better controlled with the breakthrough IV morphine. No fevers or chills. Tolerating ice chips. Physical Exam Vital signs: Last Vital Signs Temp 97.4 F L 07/07/18 08:00 Pulse 72 07/07/18 11:40 Resp 16 07/07/18 11:40 BP 122/74 07/07/18 08:00 Pulse Ox 96 07/07/18 08:00 Intake & Output 07/05/18 07/06/18 07/07/18 07/08/18 06:59 06:59 06:59 06:59 Intake Total 4232 / 4232 1500 / 1500 2139 / 2139 Output Total 550 / 550 700 / 700 Balance 3682 / 3682 1500 / 1500 1439 / 1439 Weight 81.1 kg 82.9 kg Narrative: GENERAL: Well-nourished pleasant male in no acute distress SKIN: Warm and dry. HEAD: Atraumatic. Normocephalic. EYES: Right pupil dilated 4cm, left 2cm. No scleral icterus. No injection or drainage. ENT: No nasal bleeding or discharge. Mucous membranes pink and moist. NECK: Trachea midline. No JVD. spit fistula esophagectomy with ostomy bag in place CARDIOVASCULAR: Regular rate and rhythm. RESPIRATORY: No accessory muscle use. Clear to auscultation. Breath sounds equal bilaterally. GASTROINTESTINAL: Abdomen soft, non-tender, nondistended. PEG tube in place, normoactive bowel sounds MUSCULOSKELETAL: Extremities without clubbing, cyanosis, or edema. No obvious deformities. NEUROLOGICAL: Awake and alert to person place time situation motor strength 3/5 LLE and not much movement in the right lower extremity and cannot lift on his own. Bilateral upper extremity 5 out of 5 motor strength. Normal speech. . 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 Jones However secondary to initial presenting thrombocytopenia, was initially not able to perform lumbar puncture Platelets has improved and await radiology to move forward with performing lumbar puncture for further evaluation and workup, likely scheduled for tomorrow due to the weekend. CT spine MRI, thoracic spine MRI unremarkable PT and OT to treat and eval, RF negative, ALAN negative, Lyme currently pending We will check for Tori bar virus antibiotic titers History of pituitary dysfunction. Adrenal insufficiency. Status post hypoglycemic episode. On hydrocortisone 50 mg IV every 8 hours and D5NS for hypoglycemic episodes Accu-Chek every 4 hours Has followed up with autistic teacher as an outpatient Dr. Ornelas Hypokalemiareplete Hypernatremiachange to D5 half-normal saline, levels has improved. Acute renal failure, Rhabdonow resolved Renal indices improving Leukocytosis with bandemia. This has now resolved. Patient had previous pancytopenia, now improving Currently on ceftriaxone and continue Vanco, Final blood cultures showed no growth, Wound cx: Pantoea, MRSA, Tamika Seizure disorder. Continue Keppra and gabapentin. Ativan 1 mg IV every 4hours p.r.n. for seizures. Appreciate input from neurology EEG noted and reviewed with no focal abnormality is noted and no seizure activity is seen. Head MRI unremarkable Left basilar airspace disease. Continue with oxygen and maintain sats >92%. Bronchodilators. CXR: Minimal left basilar airspace disease Pacemaker secondary to bradycardia. [employer] to reset pacemaker prior to MRI. History of Boerhaave syndrome with spit fistula esophagectomy. Previous J-tube placement. Elevated liver enzymes. Hep C Hepatitis profile: + Hep C Ig ab US abdomen: Hepatosplenomegaly On Protonix 40 mg p.o. 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 At this time will not pursue modified barium swallow until neuromuscular status workup is completed. GI prophylaxis- Protonix 40 mg daily DVT prophylaxis- SCD, not on AC prophylaxis due to upcoming lumbar puncture Discussed with mom over the phone. Progress Note: Quality VTE Deep Vein Thrombosis/Pulmonary Embolism Present on Admission: No _ (1) Acute renal failure Qualifiers: Acute renal failure type: (2) Rhabdomyolysis Qualifiers: Rhabdomyolysis type: Encounter type:
--- NOTE | 2018-07-07 12:59 | P.PNCA ---
Subjective Interval history: Patient denies any CP, pressure, palpitations, dizziness, edema or SOB. Patient does complain of right foot pain. Medications and Allergies Allergies Allergy/AdvReac Type Severity Reaction Status Date / Time codeine Allergy Severe Hives Unverified 06/30/18 10:28 tramadol Allergy Severe seizure Unverified 08/04/17 18:49 cyclobenzaprine Allergy Unknown Unresponsiv Verified 06/30/18 10:28 e fluvoxamine Allergy Unknown Unresponsiv Verified 06/30/18 10:28 e zolpidem Allergy Unknown Unconscious Verified 06/30/18 10:28 Beta-Blockers Allergy Anaphylaxis Verified 06/30/18 10:28 (Beta-Adrenergic Bloc MRI PRECAUTION AdvReac Severe NON REVO Uncoded 08/04/17 18:49 PACEMAKER Home Medications Medication Instructions Recorded Confirmed Type albuterol sulfate [Proventil HFA] INHALATION Q3-4H PRN 06/30/18 History fentanyl 1 patch TRANSDERMAL Q72H 06/30/18 06/30/18 History gabapentin 300 mg PO TID 06/30/18 06/30/18 History levetiracetam [Keppra] 750 mg PO BID 06/30/18 06/30/18 History levothyroxine [Synthroid] 75 mcg PO DAILY 06/30/18 06/30/18 History lorazepam [Ativan] 1 mg PO BID 06/30/18 06/30/18 History morphine 15 mg PO Q4-6H PRN 06/30/18 06/30/18 History quetiapine [Seroquel] 400 mg PO BID 06/30/18 06/30/18 History Active Medications: Active Medications Al Hydroxide/Mg Hydroxide (Milk Of Guillermo Liq) 30 ml PO Q12H PRN PRN Reason: Mild Constipation Last Admin: 07/06/18 17:04 Dose: 30 ml Albuterol (Duoneb Neb (Prn)) 1 ampul NEB Q2HR NEB PRN PRN Reason: WHEEZING Last Admin: 07/07/18 11:39 Dose: 1 ampul Albuterol (Duoneb Neb (Felipa)) 1 ampul NEB Q12HR NEB [facility] Last Admin: 07/07/18 07:45 Dose: Not Given Bisacodyl (Dulcolax Supp) 10 mg RECTAL DAILY PRN PRN Reason: SEVERE CONSITIPATION Dextrose (D50w Vial) 50 ml IV.PUSH UNSCH PRN PRN Reason: PER HYPOGLYCEMIA PROTOCOL Fentanyl (Duragesic 25 Mcg Patch.72hr) 1 patch T-DERMAL Q72H [facility] Last Admin: 07/06/18 13:59 Dose: 1 patch Gabapentin (Neurontin) 300 mg PO TID [facility] Last Admin: 07/07/18 09:49 Dose: 300 mg Glucagon (Glucagon Inj) 1 mg OTHER PRN PRN PRN Reason: for Hypoglycemia Protocol Hydrocortisone Sodium Succinate (Solucortef Inj) 50 mg IV.PUSH Q8HR [facility] Last Admin: 07/07/18 05:27 Dose: 50 mg Ceftriaxone Sodium 1,000 mg/ (Sodium Chloride) 100 mls @ 200 mls/hr IV.SIG Q24H [facility] Stop: 07/10/18 16:59 Last Infusion: 07/06/18 19:56 Dose: Infused Dextrose/Sodium Chloride (D5w/1/2 Ns Inj) 1,000 mls @ 75 mls/hr IV.CONT .[id number] [facility] Last Admin: 07/06/18 22:49 Dose: 75 mls/hr Vancomycin HCl 1,250 mg/ (Sodium Chloride) 262.5 mls @ 262.5 mls/hr IV.SIG Q12H [facility] Last Admin: 07/07/18 11:37 Dose: 262.5 mls/hr Insulin Human Regular (Novolin R Correctional Sugar Inj) 0 units SQ Q4HR [facility]; Protocol Last Admin: 07/07/18 09:49 Dose: Not Given Lactulose (Lactulose Liq) 30 ml PO DAILY PRN PRN Reason: SEVERE CONSITIPATION Last Admin: 07/06/18 04:46 Dose: 30 ml Levetiracetam (Keppra) 750 mg PO BID [facility] Last Admin: 07/07/18 09:49 Dose: 750 mg Levothyroxine Sodium (Synthroid) 75 mcg PO DAILY@0600 [facility] Last Admin: 07/07/18 05:26 Dose: 75 mcg Miscellaneous Information ([facility] [place] [facility] Ordered Lab Info) 0 each OTHER ONCE ONE Stop: 07/08/18 10:46 Morphine Sulfate (Msir) 15 mg PO Q4H PRN PRN Reason: PAIN SCALE 1 TO 10 Last Admin: 07/07/18 09:49 Dose: 15 mg Morphine Sulfate (Morphine Inj) 2 mg IV.PUSH Q4H PRN PRN Reason: BREAKTHROUGH PAIN Last Admin: 07/07/18 11:36 Dose: 2 mg Pantoprazole Sodium (Protonix) 40 mg PO DAILY [facility] Last Admin: 07/07/18 09:49 Dose: 40 mg Patch Removal (Remove Old Patch) 1 each T-DERMAL Q72H [facility] Last Admin: 07/06/18 13:59 Dose: 1 each Patch Removal (Remove Old Patch) 1 each T-DERMAL Q72H [facility] Last Admin: 07/06/18 13:59 Dose: 1 each Pharmacy Profile Note (Vancomycin Consult Pharmacy) 1 each OTHER UNSCH PRN PRN Reason: Pharmacy to dose Quetiapine Fumarate (Seroquel) 400 mg PO BID [facility] Last Admin: 07/03/18 21:19 Dose: Not Given Quetiapine Fumarate (Seroquel) 100 mg PO HS [facility] Last Admin: 07/06/18 21:13 Dose: 100 mg Sennosides (Senokot) 17.2 mg PO Q12H PRN PRN Reason: Moderate Constipation Sodium Chloride (Ns Flush) 2 ml IV.FLUSH PRN PRN PRN Reason: FLUSH AFTER USING IV ACCESS Last Admin: 07/06/18 21:13 Dose: 2 ml Physical Exam Vital signs: Vital Signs 07/06/18 14:00 07/06/18 16:00 07/06/18 16:01 Temperature 97.9 F 97.8 F Pulse Rate 63 59 L 60 Respiratory Rate 20 20 Blood Pressure 129/83 138/89 Pulse Oximetry 96 99 07/06/18 20:00 07/06/18 23:24 07/07/18 00:00 Temperature 97.5 F L 97.7 F Pulse Rate 60 59 L Respiratory Rate 17 20 17 Blood Pressure 132/77 130/82 Pulse Oximetry 96 95 07/07/18 04:00 07/07/18 05:28 07/07/18 07:44 Temperature 97.6 F Pulse Rate 60 64 Respiratory Rate 17 16 Blood Pressure 127/77 Pulse Oximetry 97 98 07/07/18 08:00 07/07/18 11:40 07/07/18 12:00 Temperature 97.4 F L Pulse Rate 59 L 72 71 Respiratory Rate 20 16 Blood Pressure 122/74 Pulse Oximetry 96 Intake & Output 07/06/18 07/07/18 07/07/18 18:59 06:59 18:59 Intake Total 250 / 250 1888 Output Total 700 / 700 Balance -450 / -450 1888 Intake: IV 250 / 250 1365 / 1365 D5W/1/2 NS Inj 1,000 ML @ 75 1000 / 1000 mls/hr IV.CONT .[id number] [facility] Rx# :[id number] Vancomycin Inj 1,000 MG In NS 250 / 250 Inj 250 ML @ 250 mls/hr IV.SIG Q12H [facility] Rx#:[id number] Vancomycin Inj 1,250 MG In NS 265 / 265 Inj 250 ML @ 262.5 mls/hr IV. SIG Q12H [facility] Rx#:[id number] Rocephin Inj 1,000 MG In NS Inj 100 / 100 100 ML @ 200 mls/hr IV.SIG Q24H [facility] Rx#:[id number] Oral 0 / 0 0 / 0 Tube Feeding 464 / 464 Tube Irrigant 60 / 60 Output: Urine 700 / 700 Other: Date of Last Bowel Movement 07/04/18 07/04/18 07/06/18 # Bowel Movements 1 0 - Constitutional no acute distress - Routine HEENT Exam Head: Present: normocephalic Eye: Present: PERRL ENT: Present: mucous membranes moist - Routine Neck Exam Present: supple Comments: ostomy to the left side of the neck. - Routine Respiratory Exam Present: CTA bilaterally - Routine Cardiovascular Exam Present: S1, S2. Absent: murmur, gallop, rubs - Routine Abdominal Exam Present: normoactive bowel sounds - Routine Extremities Exam Present: full ROM, pulses intact, normal capillary refill. Absent: cyanosis, clubbing, edema Comments: right foot is slightly turned inward. - Routine Skin Exam Present: intact - Routine Neurological Exam Present: oriented X3 - Detailed Neurological Exam: Coma Scale Eye Opening: Spontaneous Verbal Response: Oriented Motor Response: Obey commands Dolly Coma Scale Total: 15 - Routine Psychiatric Exam Present: normal affect Results 07/07/18 05:39 07/07/18 05:39 CBC 07/06/18 07/07/18 Range/Units 08:04 05:39 WBC 4.7 5.6 (4.0-11.0) th/mm3 RBC 4.02 L 4.35 L (4.50-5.90) mil/mm3 Hgb 13.1 14.0 (13.0-17.0) gm/dL Hct 38.9 L 42.1 (39.0-51.0) % Plt Count 120 L 161 D (150-450) th/mm3 Neut # (Auto) 4.2 (1.8-7.7) th/mm3 Lymph # (Auto) 0.9 L (1.0-4.8) th/mm3 Bradley # (Auto) 0.4 (0.0-0.9) th/mm3 Eos # (Auto) 0.0 (0.0-0.4) th/mm3 Baso # (Auto) 0.0 (0.0-0.2) th/mm3 Comprehensive Metabolic Panel 07/06/18 07/07/18 Range/Units 08:04 05:39 Sodium 144 143 (136-145) meq/L Potassium 3.8 3.8 (3.5-5.1) meq/L Chloride 109 H 109 H (98-107) meq/L Carbon Dioxide 29.4 29.7 (21.0-32.0) meq/L BUN 23 H 22 H (7-18) mg/dL Creatinine 0.53 L 0.62 (0.60-1.30) mg/dL Calcium 7.1 L* 7.5 L (8.5-10.1) mg/dL Albumin 2.0 L (3.4-5.0) g/dL Intake and Output 07/06/18 07/07/18 07/07/18 22:59 06:59 14:59 Intake Total 1100 / 1100 789 / 789 Output Total 700 / 700 Balance 400 / 400 789 / 789 Intake: IV 1100 / 1100 265 / 265 D5W/1/2 NS Inj 1,000 ML @ 75 1000 / 1000 mls/hr IV.CONT .[id number] [facility] Rx# :[id number] Vancomycin Inj 1,250 MG In NS 265 / 265 Inj 250 ML @ 262.5 mls/hr IV. SIG Q12H [facility] Rx#:[id number] Rocephin Inj 1,000 MG In NS Inj 100 / 100 100 ML @ 200 mls/hr IV.SIG Q24H [facility] Rx#:[id number] Oral 0 / 0 0 / 0 Tube Feeding 464 / 464 Tube Irrigant 60 / 60 Output: Urine 700 / 700 Other: Date of Last Bowel Movement 07/04/18 07/06/18 # Bowel Movements 1 0 Assessment and Plan - Assessment (1) Acute renal failure Code(s): N17.9 - Acute kidney failure, unspecified Status: Acute (2) Rhabdomyolysis Code(s): M62.82 - Rhabdomyolysis Status: Acute (3) Boerhaave syndrome Code(s): K22.3 - Perforation of esophagus Status: Acute (4) Addisons disease Code(s): E27.1 - Primary adrenocortical insufficiency Status: Acute (5) Metabolic acidosis Code(s): E87.2 - Acidosis Status: Acute (6) Hyperkalemia Code(s): E87.5 - Hyperkalemia Status: Acute (7) Pacemaker Code(s): Z95.0 - Presence of cardiac pacemaker Status: Acute (8) Bradycardia Code(s): R00.1 - Bradycardia, unspecified Status: Acute - Plan MS still mildly altered, neurology evaluation in progress. LP planned tomorrow. Patient continues to remain stable from a cardiac standpoint. We will continue with current cardiac treatment plan. Continue to increase activity as patient tolerates. We will continue to monitor during hospitalization The patient was seen and evaluated by Dr. Robledo who participated in care, management and decision making. - Attending Attestation Patient seen and examined. I reviewed and agree with the evaluation and plan as presented. Continue current program. Neurology evaluation in progress. Stable from cardiac standpoint.
[2018-07-07] MEDS: Dextrose 5%/NaCl 0.45% Inj 1,000 ML IV.CONT SCH ×2 (13:37→21:57)
[2018-07-07] MEDS: QUEtiapine 100 MG Tablet PO SCH (21:55)
[2018-07-08] MEDS: Insulin NovoLIN Regular Correctional Sugar Inj SQ SCH ×6 (00:27→20:13)
[2018-07-08] MEDS: Morphine Sulfate Inj 2 MG/ML Vial IV.PUSH PRN ×6 (00:28→22:52)
[2018-07-08] MEDS: Morphine Sulfate 15 MG IR Tablet PO PRN ×5 (03:13→20:14)
[2018-07-08] MEDS: Dextrose 5%/NaCl 0.45% Inj 1,000 ML IV.CONT SCH ×3 (03:14→20:36)
[2018-07-08] MEDS: Levothyroxine 75 MCG Tablet PO SCH (05:25)
[2018-07-08] MEDS: Hydrocortisone Sod Succinate 100 MG Vial IV.PUSH SCH ×3 (05:25→21:00)
[2018-07-08 09:18] LABS: Baso % (Auto) 0.1 % (0.0-2.0); Eos % (Auto) 0.5 % (0.0-4.0); Hematocrit 38.7 % (39.0-51.0); Hemoglobin 13.3 gm/dL (13.0-17.0); Lymph # (Auto) 0.7 th/mm3 (1.0-4.8); Lymph % (Auto) 12.1 % (9.0-44.0); Mean Corpuscular HGB Conc 34.2 % (32.0-36.0); Mean Corpuscular Hemoglobin 32.8 pg (27.0-34.0); Mean Corpuscular Volume 95.8 fL (80.0-100.0); Mean Platelet Volume 9.4 fL (7.0-11.0); Mono # (Auto) 0.3 th/mm3 (0.0-0.9); Mono % (Auto) 6.1 % (0.0-8.0); Neut # (Auto) 4.5 th/mm3 (1.8-7.7); Neut % (Auto) 81.2 % (16.0-70.0); Platelet Count 194 th/mm3 (150-450); Red Blood Count 4.04 mil/mm3 (4.50-5.90); Red Cell Distribution Width 15.9 % (11.6-17.2); White Blood Count 5.5 th/mm3 (4.0-11.0)
--- NOTE | 2018-07-08 09:29 | P.RAD ---
Post Procedure Progress Note - Pre Procedure Diagnosis (1) Altered mental status - Post Procedure Diagnosis (1) Altered mental status - Procedure Information Procedure Date: 07/08/18 Supervising Radiologist: Robert Marsh MD Estimated blood loss (mL): 0 - Plan of Activity Patient to Unit: ROPU See PACS Report for procedural detail/treatment. Spinal Procedure Lumbar Puncture L3-L4 Fluid Removal (CCs): 16 Fluid Description: Clear Puncture Time: 09:05
[2018-07-08 09:47] LABS: Glomerular Filtration Rate Greater Than 89 mL/min (>89)
[2018-07-08] MEDS: Gabapentin 300 MG Capsule PO SCH ×3 (09:52→18:10)
[2018-07-08] MEDS: levETIRAcetam 250 MG Tablet PO SCH ×2 (09:52→20:14)
[2018-07-08 09:53] LABS: Total Protein,CSF 126.2 mg/dL (15.0-45.0)
[2018-07-08 10:11] LABS: Lymphocytes 14 % (9-44); Metamyelocytes 1 % (0-1); Monocytes 3 % (0-8); Myelocytes 1 % (0-0); Platelet Estimate Normal (Normal)
[2018-07-08 10:30] LABS: Lymphocytes, CSF 46 %; Monocytes,CSF 8 %; Neutrophils,CSF 8 %
[2018-07-08 10:33] LABS: RBC on Tube 4 27 /mm3
[2018-07-08] MEDS ORDERED: Pharmacy Ordered Lab Info OTHER ONE (10:45)
--- NOTE | 2018-07-08 11:20 | P.PNIM ---
Subjective Interval history: Reports continued weakness lower legs with no improvement overnight. Pain is controlled. Would like to have coffee through the G-tube. Physical Exam Vital signs: Last Vital Signs Temp 97.9 F 07/08/18 08:00 Pulse 62 07/08/18 08:00 Resp 17 07/08/18 08:00 BP 130/76 07/08/18 08:00 Pulse Ox 100 07/08/18 08:00 Intake & Output 07/06/18 07/07/18 07/08/18 07/09/18 06:59 06:59 06:59 06:59 Intake Total 1500 / 1500 2139 / 2139 2427.5 / 2427.5 Output Total 700 / 700 800 / 800 Balance 1500 / 1500 1439 / 1439 1627.5 / 1627.5 Weight 82.9 kg Narrative: GENERAL: Well-nourished pleasant male in no acute distress SKIN: Warm and dry. HEAD: Atraumatic. Normocephalic. EYES: Right pupil dilated 4cm, left 2cm. No scleral icterus. No injection or drainage. ENT: No nasal bleeding or discharge. Mucous membranes pink and moist. NECK: Trachea midline. No JVD. spit fistula esophagectomy with ostomy bag in place CARDIOVASCULAR: Regular rate and rhythm. RESPIRATORY: No accessory muscle use. Clear to auscultation. Breath sounds equal bilaterally. GASTROINTESTINAL: Abdomen soft, non-tender, nondistended. PEG tube in place, normoactive bowel sounds MUSCULOSKELETAL: Extremities without clubbing, cyanosis, or edema. No obvious deformities. NEUROLOGICAL: Awake and alert to person place time situation motor strength 3/5 LLE and not much movement in the right lower extremity and cannot lift on his own. Bilateral upper extremity 5 out of 5 motor strength. Normal speech. Unchanged exam compared to yesterday. . 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 Jones However secondary to initial presenting thrombocytopenia, was initially not able to perform lumbar puncture Platelets has improved and radiology completed the lumbar puncture today. Will await studies CT spine MRI, thoracic spine MRI unremarkable Continue PT and OT RF negative, ALAN negative, Lyme currently pending Tori bar virus antibiotic titers pending. History of pituitary dysfunction. Adrenal insufficiency. Status post hypoglycemic episode. On hydrocortisone 50 mg IV every 8 hours and D5NS for hypoglycemic episodes Accu-Chek every 4 hours Has followed up with applications chemist as an outpatient Dr. Ornelas Hypokalemiareplete Hypernatremiachange to D5 half-normal saline, levels has improved. Acute renal failure, Rhabdonow resolved Renal indices improving Leukocytosis with bandemia. This has now resolved. Patient had previous pancytopenia, now improving Currently on ceftriaxone and continue Vanco, Final blood cultures showed no growth, Wound cx: Pantoea, MRSA, Tamika Seizure disorder. Continue Keppra and gabapentin. Ativan 1 mg IV every 4hours p.r.n. for seizures. Appreciate input from neurology EEG noted and reviewed with no focal abnormality is noted and no seizure activity is seen. Head MRI unremarkable Left basilar airspace disease. Continue with oxygen and maintain sats >92%. Bronchodilators. CXR: Minimal left basilar airspace disease Pacemaker secondary to bradycardia. [employer] to reset pacemaker prior to MRI. History of Boerhaave syndrome with spit fistula esophagectomy. Previous J-tube placement. Elevated liver enzymes. Hep C Hepatitis profile: + Hep C Ig ab US abdomen: Hepatosplenomegaly On Protonix 40 mg p.o. 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 At this time will not pursue modified barium swallow until neuromuscular status workup is completed. GI prophylaxis- Protonix 40 mg daily DVT prophylaxis- SCD, not on AC prophylaxis due to upcoming lumbar puncture Progress Note: Quality VTE Deep Vein Thrombosis/Pulmonary Embolism Present on Admission: No _ (1) Acute renal failure Qualifiers: Acute renal failure type: (2) Rhabdomyolysis Qualifiers: Rhabdomyolysis type: Encounter type:
[2018-07-08] MEDS: Vancomycin Inj 1,250 MG in Sodium Chlor 0.9% Inj 250 ML IV.SIG SCH ×2 (11:37→22:55)
--- NOTE | 2018-07-08 12:28 | IR ---
EXAM DATE: 07/08/2018 9:36 AM EST AGE/SEX: 32 years / Male INDICATIONS: Patient presents with Altered Mental Status in need of Lumbar Puncture to evaluate for possible Multiple Sclerosis. CLINICAL DATA: This is the patient's initial encounter. Patient reports that signs and symptoms have been present for 4 - 6 days and indicates a pain score of 8/10. MEDICAL/SURGICAL HISTORY: . Boerhaave Syndrome, Adrenal Insufficiency, Pituitary Dysfunction, P TSD, Seizure Disorder. . Spit Fistula Esophagectomy, J-tube, Pacemaker. [place] [facility] [place] 07/03/[place]. . FLUORO TIME (min): 0.9 IMAGE SERIES: 1 RADIATION DOSE: 47.8 mGy ACCESS SITE: L3-4 LUMBAR PUNCTURE TIME: 0906 hours FLUID: Total volume of 16 cc of clear fluid was removed. Fluid was sent to lab for ordered studies. ; . . PROCEDURE: 1. Fluoroscopic guided lumbar puncture. The risks, benefits and alternatives to the procedure were explained and verbal and written consent w as obtained. The site was prepped in sterile fashion. Full sterile technique was used, including ca p, mask, sterile gloves and gown and a large sterile sheet. Hand hygiene and 2% chlorhexidine and/or betadine/alcohol prep was utilized per protocol for cutaneous antisepsis. The skin and subcutaneous tissues were infiltrated with local anesthetic solution. With fluoroscopic guidance the lumbar thecal sac was punctured at the level above. The fluid describ ed above was removed without difficulty. The patient tolerated the procedure well and there were no complications. CONCLUSION: Uncomplicated fluoroscopically guided lumbar puncture. Electronically signed by: Robert Marsh MD Board Certified Radiologist 07/08/2018 12:26 PM EST
--- NOTE | 2018-07-08 16:04 | P.DIET ---
Nutritional Evaluation Type of nutrition evaluation: follow-up Nutrition consult regarding: Tube Feeding Nutrition screening: MDC (TF'ing) Screening comments: 06/30 MDC for TF'ing Objective - Diagnosis ARF, PNA, AMS, Rhabodomylosis - Objective Body Mass Index: 30 [place] body weight: 62 kg % IBW: 130 (IBW = 136lb) Body Weight Used for Calculations: Actual (66.9kg) Energy Needs - Lower Range (kCal/kg): 25 Energy Needs - Upper Range (kCal/kg): 30 Lower Limit kCal/kg (kCals): 2,072 Upper Limit kCal/kg (kCals): 2,480 Lower Limit Protein Factor (Grams per Kg): 0.8 Upper Limit Protein Factor (Grams per Kg): 1.0 Lower Protein Needs (Protein): 66 Upper Protein Needs (Protein): 83 Dietitian Reviewed in Medical Record: Curent medications, Intake & Output, Labs , Medical history, Tube feeding Diet Order: TF'ing Speech Therapy Recommendations: Yes (Cleared for ice chips and water) Objective Comments: PMH: Boorhaave Syndrome, esophageal ostomy to neck bag, TIA, PTSD, PPM Labs: nutritionally unremarkable Assessment Assessment: TF F/U 07/08. Pt TF ordered for Suplena 1.8 at 50ml/ hour (06/30). TF currently running at rate of 70ml. After speaking with pt today he explained that he requested his TF rate be increased to 70ml, but now he wants the rate to go down again because he "can feel himself gaining weight." As per records, pt's weight has increased by 16kg since (06/30). Per pt, he is tolerating TF fine, no N/V or discomfort. Pt explained that he has not had a bowel movement in three days because his pain medication was increased but currently on bowel regimen. After reassessing pt's needs they are as follows; 2,072-2,487kcal and 66-83g/ day of protein. Suplena 1.8 at 70ml/ hour is providing 3,024kcal and 75.6g protein which does not appropriately meet this patients energy requirements. Will recommend to decrease the rate of TF to 50ml and add 2 packets of beneprotein to provide 2,210kcal and 66g protein to more appropriately meet pt' s energy requirements. Will continue to monitor tolerance to TF, labs and weight. Recommendations: 1. Recommend Suplena 1.8 at 50ml/ hour plus 2 packets beneprotien 2. Monitor renal labs 3. Continue to monitor for TF tolerance 4. Dietitian following Dietitian to Monitor: Lab values, Renal labs, Intake & Output, Tube feeding tolerance
[2018-07-08] MEDS: Dextrose 50% in Water 50 ML Vial IV.PUSH PRN (20:13)
[2018-07-08] MEDS: QUEtiapine 100 MG Tablet PO SCH (20:15)
[2018-07-09 00:10] LABS: EBV Virus Capsid Ag IgG Ab Positive (Negative); EBV Virus Capsid Ag IgM Ab Negative (Negative)
[2018-07-09] MEDS: Morphine Sulfate 15 MG IR Tablet PO PRN ×6 (00:33→22:19)
[2018-07-09] MEDS: Insulin NovoLIN Regular Correctional Sugar Inj SQ SCH ×6 (00:34→20:19)
[2018-07-09] MEDS: Dextrose 5%/NaCl 0.45% Inj 1,000 ML IV.CONT SCH ×2 (00:34→13:00)
[2018-07-09] MEDS: Hydrocortisone Sod Succinate 100 MG Vial IV.PUSH SCH ×3 (06:05→22:19)
[2018-07-09] MEDS: Morphine Sulfate Inj 2 MG/ML Vial IV.PUSH PRN ×4 (06:06→19:05)
[2018-07-09] MEDS: Levothyroxine 75 MCG Tablet PO SCH (06:06)
[2018-07-09] MEDS: levETIRAcetam 250 MG Tablet PO SCH ×2 (09:03→22:19)
[2018-07-09] MEDS: Gabapentin 300 MG Capsule PO SCH ×3 (09:03→17:03)
[2018-07-09] MEDS: Vancomycin Inj 1,250 MG in Sodium Chlor 0.9% Inj 250 ML IV.SIG SCH ×2 (11:06→22:20)
--- NOTE | 2018-07-09 12:02 | P.PNIM ---
Subjective Interval history: Reports that his bilateral lower leg weakness is not improved and not worsened. Pain is currently controlled. Physical Exam Vital signs: Last Vital Signs Temp 97.9 F 07/09/18 08:00 Pulse 86 07/09/18 08:00 Resp 16 07/09/18 08:00 BP 141/62 H 07/09/18 08:00 Pulse Ox 98 07/09/18 08:00 Intake & Output 07/07/18 07/08/18 07/09/18 07/10/18 06:59 06:59 06:59 06:59 Intake Total 2139 / 2139 2427.5 / 2427.5 3285.0 / 3285.0 Output Total 700 / 700 800 / 800 3800 / 3800 Balance 1439 / 1439 1627.5 / 1627.5 -515.0 / -515.0 Weight 87.6 kg Narrative: GENERAL: Well-nourished pleasant male in no acute distress SKIN: Warm and dry. HEAD: Atraumatic. Normocephalic. EYES: Right pupil dilated 4cm, left 2cm. No scleral icterus. No injection or drainage. ENT: No nasal bleeding or discharge. Mucous membranes pink and moist. NECK: Trachea midline. No JVD. spit fistula esophagectomy with ostomy bag in place CARDIOVASCULAR: Regular rate and rhythm. RESPIRATORY: No accessory muscle use. Clear to auscultation. Breath sounds equal bilaterally. GASTROINTESTINAL: Abdomen soft, non-tender, nondistended. PEG tube in place, normoactive bowel sounds MUSCULOSKELETAL: Extremities without clubbing, cyanosis, or edema. No obvious deformities. NEUROLOGICAL: Awake and alert to person place time situation; motor strength 3/ 5 LLE and not much movement in the right lower extremity and cannot dorsiflex. Bilateral upper extremity 5 out of 5 motor strength. Normal speech. Unchanged exam compared to yesterday. . Results Labs CBC & Chem 7: 07/08/18 06:46 07/08/18 06:46 Labs: Microbiology 07/08/18 09:06 Lumbar Puncture Gram Stain - Final 07/08/18 09:06 Lumbar Puncture CSF Culture - Preliminary No growth in 24 hours Imaging Imaging: Impressions Lumbar Puncture Fluoroscopy 07/08/18 00:00 CONCLUSION: Uncomplicated fluoroscopically guided lumbar puncture. 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 Jones However secondary to initial presenting thrombocytopenia, was initially not able to perform lumbar puncture, now Platelets has improved and radiology completed the lumbar puncture 07/08. Will await studies CT spine MRI, thoracic spine MRI unremarkable Continue PT and OT RF negative, ALAN negative, Lyme not detected Tori bar virus showed positive for antigen and IgG but negative for IgM therefore shows no recent infection or active infection. History of pituitary dysfunction. Adrenal insufficiency. Status post hypoglycemic episode. On hydrocortisone 50 mg IV every 8 hours and D5NS for hypoglycemic episodes, had only one episode overnight. Accu-Chek every 4 hours Has followed up with machine stemmer as an outpatient Dr. Ornelas Hypokalemiareplete Hypernatremianow resolved change to D5 half-normal saline, levels has improved. Acute renal failure, Rhabdonow resolved Renal indices improving Leukocytosis with bandemia. This has now resolved. Patient had previous pancytopenia, now improving Currently on ceftriaxone and continue Vanco, Final blood cultures showed no growth, Wound cx: Pantoea, MRSA, Tamika Seizure disorder. Continue Keppra and gabapentin. Ativan 1 mg IV every 4hours p.r.n. for seizures. Appreciate input from neurology EEG noted and reviewed with no focal abnormality is noted and no seizure activity is seen. Head MRI unremarkable Left basilar airspace disease. Continue with oxygen and maintain sats >92%. Bronchodilators. CXR: Minimal left basilar airspace disease Pacemaker secondary to bradycardia. [employer] to reset pacemaker prior to MRI. History of Boerhaave syndrome with spit fistula esophagectomy. Previous J-tube placement. Elevated liver enzymes. Hep C Hepatitis profile: + Hep C Ig ab US abdomen: Hepatosplenomegaly On Protonix 40 mg p.o. 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 At this time will not pursue modified barium swallow until neuromuscular status workup is completed. At this time we will continue tube feeds. Will decrease to 50 mls per hour Suplena with 2 packets of bit of protein per dietitian recommendations. GI prophylaxis- Protonix 40 mg daily DVT prophylaxis- SCD, not on AC prophylaxis due to upcoming lumbar puncture Progress Note: Quality VTE Deep Vein Thrombosis/Pulmonary Embolism Present on Admission: No _ (1) Acute renal failure Qualifiers: Acute renal failure type: (2) Rhabdomyolysis Qualifiers: Rhabdomyolysis type: Encounter type:
--- NOTE | 2018-07-09 18:23 | P.PNNEU ---
Subjective Subjective Comments: still very weak in BLe R>L. feels pins and needles in feet and numbness in legs Active Medications: Active Medications Al Hydroxide/Mg Hydroxide (Milk Of Magnesia Liq) 30 ml PO Q12H PRN PRN Reason: Mild Constipation Last Admin: 07/07/18 15:45 Dose: 30 ml Albuterol (Duoneb Neb (Prn)) 1 ampul NEB Q2HR NEB PRN PRN Reason: WHEEZING Last Admin: 07/09/18 17:25 Dose: 1 ampul Bisacodyl (Dulcolax Supp) 10 mg RECTAL DAILY PRN PRN Reason: SEVERE CONSITIPATION Dextrose (D50w Vial) 50 ml IV.PUSH UNSCH PRN PRN Reason: PER HYPOGLYCEMIA PROTOCOL Last Admin: 07/08/18 20:13 Dose: 50 ml Fentanyl (Duragesic 25 Mcg Patch.72hr) 1 patch T-DERMAL Q72H [facility] Last Admin: 07/09/18 13:02 Dose: 1 patch Gabapentin (Neurontin) 300 mg PO TID [facility] Last Admin: 07/09/18 17:03 Dose: 300 mg Glucagon (Glucagon Inj) 1 mg OTHER PRN PRN PRN Reason: for Hypoglycemia Protocol Hydrocortisone Sodium Succinate (Solucortef Inj) 50 mg IV.PUSH Q8HR [facility] Last Admin: 07/09/18 13:02 Dose: 50 mg Ceftriaxone Sodium 1,000 mg/ (Sodium Chloride) 100 mls @ 200 mls/hr IV.SIG Q24H [facility] Stop: 07/10/18 16:59 Last Infusion: 07/09/18 17:40 Dose: Infused Dextrose/Sodium Chloride (D5w/1/2 Ns Inj) 1,000 mls @ 75 mls/hr IV.CONT .[id number] [facility] Last Admin: 07/09/18 13:00 Dose: 75 mls/hr Vancomycin HCl 1,250 mg/ (Sodium Chloride) 262.5 mls @ 262.5 mls/hr IV.SIG Q12H [facility] Last Infusion: 07/09/18 12:49 Dose: Infused Insulin Human Regular (Novolin R Correctional Sugar Inj) 0 units SQ Q4HR [facility]; Protocol Last Admin: 07/09/18 17:04 Dose: Not Given Lactulose (Lactulose Liq) 30 ml PO DAILY PRN PRN Reason: SEVERE CONSITIPATION Last Admin: 07/09/18 15:00 Dose: 30 ml Levetiracetam (Keppra) 750 mg PO BID [facility] Last Admin: 07/09/18 09:03 Dose: 750 mg Levothyroxine Sodium (Synthroid) 75 mcg PO DAILY@0600 [facility] Last Admin: 07/09/18 06:06 Dose: 75 mcg Miscellaneous Information ([facility] Ordered Lab Info) 0 each OTHER ONCE ONE Stop: 07/12/18 10:46 Morphine Sulfate (Msir) 15 mg PO Q4H PRN PRN Reason: PAIN SCALE 1 TO 10 Last Admin: 07/09/18 17:04 Dose: 15 mg Morphine Sulfate (Morphine Inj) 2 mg IV.PUSH Q4H PRN PRN Reason: BREAKTHROUGH PAIN Last Admin: 07/09/18 15:00 Dose: 2 mg Pantoprazole Sodium (Protonix) 40 mg PO DAILY [facility] Last Admin: 07/09/18 09:03 Dose: 40 mg Patch Removal (Remove Old Patch) 1 each T-DERMAL Q72H [facility] Last Admin: 07/09/18 13:12 Dose: 1 each Patch Removal (Remove Old Patch) 1 each T-DERMAL Q72H [facility] Last Admin: 07/09/18 13:12 Dose: Not Given Pharmacy Profile Note (Vancomycin Consult Pharmacy) 1 each OTHER UNSCH PRN PRN Reason: Pharmacy to dose Quetiapine Fumarate (Seroquel) 400 mg PO BID [facility] Last Admin: 07/03/18 21:19 Dose: Not Given Quetiapine Fumarate (Seroquel) 100 mg PO HS [facility] Last Admin: 07/08/18 20:15 Dose: 100 mg Sennosides (Senokot) 17.2 mg PO Q12H PRN PRN Reason: Moderate Constipation Sodium Chloride (Ns Flush) 2 ml IV.FLUSH PRN PRN PRN Reason: FLUSH AFTER USING IV ACCESS Last Admin: 07/08/18 09:53 Dose: 2 ml Allergies/Adverse Reactions: Allergies Allergy/AdvReac Type Severity Reaction Status Date / Time codeine Allergy Severe Hives Unverified 06/30/18 10:28 tramadol Allergy Severe seizure Unverified 08/04/17 18:49 cyclobenzaprine Allergy Unknown Unresponsiv Verified 06/30/18 10:28 e fluvoxamine Allergy Unknown Unresponsiv Verified 06/30/18 10:28 e zolpidem Allergy Unknown Unconscious Verified 06/30/18 10:28 Beta-Blockers Allergy Anaphylaxis Verified 06/30/18 10:28 (Beta-Adrenergic Bloc MRI PRECAUTION AdvReac Severe NON REVO Uncoded 08/04/17 18:49 PACEMAKER Physical Exam Vital signs: Vital Signs 07/08/18 20:00 07/09/18 00:00 07/09/18 04:00 Temperature 97.4 F L 97.9 F 97.7 F Pulse Rate 60 63 59 L Respiratory Rate 17 18 15 Blood Pressure 150/73 H 142/78 H 126/68 Pulse Oximetry 98 100 98 07/09/18 08:00 07/09/18 12:00 07/09/18 17:27 Temperature 97.9 F 97.1 F L Pulse Rate 86 60 60 Respiratory Rate 16 16 16 Blood Pressure 141/62 H 127/72 Pulse Oximetry 98 100 Intake & Output 07/08/18 07/09/18 07/09/18 18:59 06:59 18:59 Intake Total 2172.5 / 2172.5 1112.5 / 1112.5 1362.5 / 1362.5 Output Total 1700 / 1700 2100 / 2100 Balance 472.5 / 472.5 -987.5 / -987.5 1362.5 / 1362.5 Weight 87.6 kg Intake: IV 1212.5 / 1212.5 412.5 / 412.5 1362.5 / 1362.5 D5W/1/2 NS Inj 1,000 ML @ 75 850 / 850 150 / 150 1000 / 1000 mls/hr IV.CONT .[id number] [facility] Rx# :[id number] Vancomycin Inj 1,250 MG In NS 262.5 / 262.5 262.5 / 262.5 262.5 / 262.5 Inj 250 ML @ 262.5 mls/hr IV. SIG Q12H [facility] Rx#:[id number] Rocephin Inj 1,000 MG In NS Inj 100 / 100 100 / 100 100 ML @ 200 mls/hr IV.SIG Q24H [facility] Rx#:[id number] Oral 960 / 960 240 / 240 Tube Feeding 400 / 400 Tube Irrigant 60 / 60 Output: Urine 1700 / 1700 2100 / 2100 Other: # Voids 5 Date of Last Bowel Movement 07/07/18 07/08/18 # Bowel Movements 0 1 - Routine Neurological Exam alert, speech normal CN --anisicoria right pupil 3 mm left pupil 2 mm MOTOR 5/5 BUE 3/5 BLE DTR--absent BUE and BLE Objective Laboratory Results - last 24 hr 07/07/18 07/08/18 07/08/18 17:13 19:55 20:59 POC Glucose 67 L 119 H EBV Capsid Ag IgG Ab Positive EBV Capsid Ag IgM Ab Negative EBV Nuclear Antigen Positive EBV Interpretation . 07/09/18 07/09/18 07/09/18 00:28 03:50 09:02 POC Glucose 123 H 88 89 EBV Capsid Ag IgG Ab EBV Capsid Ag IgM Ab EBV Nuclear Antigen EBV Interpretation 07/09/18 07/09/18 13:00 17:04 POC Glucose 93 96 EBV Capsid Ag IgG Ab EBV Capsid Ag IgM Ab EBV Nuclear Antigen EBV Interpretation Microbiology 07/08/18 09:06 Gram Stain - Final Lumbar Puncture CSF Culture - Preliminary No growth in 24 hours csf--markedly elevated csf protein Review/Management - Diagnosis (1) Myelopathy Code(s): G95.9 - Disease of spinal cord, unspecified Status: Acute Current Visit: Yes - Review/Management Plan: With the absence of deep tendon reflexes and CSF with elevated protein, 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 Transverse myelitis and also adrenomyeloneuropathy is possible. However there are no upper motor neuron signs such as hyperreflexia or Babinski signs RECOMMEND---follow up CSF studies remaining. Check ANTI-NMO anti bodies (r/o neuromyelitis optica) and long chain fatty acide ( for adrenomyeloneuropathy) Consider trial of plasmapheresis.
[2018-07-09] MEDS: QUEtiapine 100 MG Tablet PO SCH (22:19)
[2018-07-09] MEDS: Dextrose 50% in Water 50 ML Vial IV.PUSH PRN (23:19)
[2018-07-10] MEDS: Insulin NovoLIN Regular Correctional Sugar Inj SQ SCH ×7 (00:35→23:26)
[2018-07-10] MEDS: Morphine Sulfate 15 MG IR Tablet PO PRN ×6 (02:11→23:25)
[2018-07-10] MEDS: Dextrose 5%/NaCl 0.45% Inj 1,000 ML IV.CONT SCH ×2 (04:00→15:27)
[2018-07-10] MEDS: Morphine Sulfate Inj 2 MG/ML Vial IV.PUSH PRN ×5 (04:35→21:23)
[2018-07-10] MEDS: Levothyroxine 75 MCG Tablet PO SCH (05:07)
[2018-07-10] MEDS: Hydrocortisone Sod Succinate 100 MG Vial IV.PUSH SCH ×3 (05:07→21:37)
[2018-07-10 07:43] LABS: Glomerular Filtration Rate Greater Than 89 mL/min (>89)
--- NOTE | 2018-07-10 08:54 | P.PNIM ---
Subjective Interval history: in no acute distress. pain is controlled. no fever. still with lower extremioty weakness. Physical Exam Vital signs: Last Vital Signs Temp 97.4 F L 07/10/18 04:00 Pulse 60 07/10/18 04:00 Resp 16 07/10/18 04:00 BP 136/74 07/10/18 04:00 Pulse Ox 99 07/10/18 04:00 Intake & Output 07/08/18 07/09/18 07/10/18 07/11/18 06:59 06:59 06:59 06:59 Intake Total 2427.5 / 2427.5 3285.0 / 3285.0 3325.0 / 3325.0 Output Total 800 / 800 3800 / 3800 2950 / 2950 Balance 1627.5 / 1627.5 -515.0 / -515.0 375.0 / 375.0 Weight 87.6 kg 90.3 kg Constitutional no acute distress Routine Respiratory Exam Present CTA bilaterally Routine Cardiovascular Exam Present RRR Routine Abdominal Exam Present soft Routine Extremities Exam Comments: no pedal edema. Routine Neurological Exam Present alert, oriented X3 and motor deficit lower extremity weakness bilaterally. 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 Jones However secondary to initial presenting thrombocytopenia, was initially not able to perform lumbar puncture, now Platelets has improved and radiology completed the lumbar puncture 07/08. awaitingstudies CT spine MRI, thoracic spine MRI unremarkable Continue PT and OT RF negative, ALAN negative, Lyme not detected Tori bar virus showed positive for antigen and IgG but negative for IgM therefore shows no recent infection or active infection. neurology f/u appreciated; considering Plasmaphresis- awaiting neurology f/u and recommendations. History of pituitary dysfunction. Adrenal insufficiency. Status post hypoglycemic episode. On hydrocortisone 50 mg IV every 8 hours and D5NS for hypoglycemic episodes, had only one episode overnight. Accu-Chek every 4 hours Has followed up with program support assistant as an outpatient Dr. Ornelas Hypokalemiarepleted Hypernatremianow resolved change to D5 half-normal saline, levels has improved. Acute renal failure, Rhabdonow resolved Renal indices improving Leukocytosis with bandemia. This has now resolved. Patient had previous pancytopenia, now improving Currently on ceftriaxone and continue Vanco, Final blood cultures showed no growth, Wound cx: Pantoea, MRSA, Tamika Seizure disorder. Continue Keppra and gabapentin. Ativan 1 mg IV every 4hours p.r.n. for seizures. Appreciate input from neurology EEG noted and reviewed with no focal abnormality is noted and no seizure activity is seen. Head MRI unremarkable Left basilar airspace disease. Continue with oxygen and maintain sats >92%. Bronchodilators. CXR: Minimal left basilar airspace disease Pacemaker secondary to bradycardia. [employer] to reset pacemaker prior to MRI. History of Boerhaave syndrome with spit fistula esophagectomy. Previous J-tube placement. Elevated liver enzymes. Hep C Hepatitis profile: + Hep C Ig ab US abdomen: Hepatosplenomegaly On Protonix 40 mg p.o. 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 At this time will not pursue modified barium swallow until neuromuscular status workup is completed. At this time we will continue tube feeds. on 50 mls per hour Suplena with 2 packets of bit of protein per dietitian recommendations. GI prophylaxis- Protonix 40 mg daily DVT prophylaxis- SCD. Progress Note: Quality VTE Deep Vein Thrombosis/Pulmonary Embolism Present on Admission: No _ (1) Acute renal failure Qualifiers: Acute renal failure type: (2) Rhabdomyolysis Qualifiers: Rhabdomyolysis type: Encounter type:
[2018-07-10] MEDS: Gabapentin 300 MG Capsule PO SCH ×3 (09:09→17:20)
[2018-07-10] MEDS: levETIRAcetam 250 MG Tablet PO SCH ×2 (09:09→21:42)
[2018-07-10] MEDS: Vancomycin Inj 1,250 MG in Sodium Chlor 0.9% Inj 250 ML IV.SIG SCH ×2 (11:26→23:26)
--- NOTE | 2018-07-10 20:16 | P.PNNEU ---
Subjective Subjective Comments: still weak BLE without change. Has pain in BLE Active Medications: Active Medications Al Hydroxide/Mg Hydroxide (Milk Of Magnesia Liq) 30 ml PO Q12H PRN PRN Reason: Mild Constipation Last Admin: 07/07/18 15:45 Dose: 30 ml Albuterol (Duoneb Neb (Prn)) 1 ampul NEB Q2HR NEB PRN PRN Reason: WHEEZING Last Admin: 07/09/18 17:25 Dose: 1 ampul Bisacodyl (Dulcolax Supp) 10 mg RECTAL DAILY PRN PRN Reason: SEVERE CONSITIPATION Dextrose (D50w Vial) 50 ml IV.PUSH UNSCH PRN PRN Reason: PER HYPOGLYCEMIA PROTOCOL Last Admin: 07/09/18 23:19 Dose: 50 ml Fentanyl (Duragesic 25 Mcg Patch.72hr) 1 patch T-DERMAL Q72H [facility] Last Admin: 07/09/18 13:02 Dose: 1 patch Gabapentin (Neurontin) 300 mg PO TID [facility] Last Admin: 07/10/18 17:20 Dose: 300 mg Glucagon (Glucagon Inj) 1 mg OTHER PRN PRN PRN Reason: for Hypoglycemia Protocol Hydrocortisone Sodium Succinate (Solucortef Inj) 50 mg IV.PUSH Q8HR [facility] Last Admin: 07/10/18 13:23 Dose: 50 mg Dextrose/Sodium Chloride (D5w/1/2 Ns Inj) 1,000 mls @ 75 mls/hr IV.CONT .[id number] [facility] Last Admin: 07/10/18 15:27 Dose: 75 mls/hr Vancomycin HCl 1,250 mg/ (Sodium Chloride) 262.5 mls @ 262.5 mls/hr IV.SIG Q12H [facility] Last Infusion: 07/10/18 12:16 Dose: Infused Insulin Human Regular (Novolin R Correctional Sugar Inj) 0 units SQ Q4HR [facility]; Protocol Last Admin: 07/10/18 15:20 Dose: Not Given Lactulose (Lactulose Liq) 30 ml PO DAILY PRN PRN Reason: SEVERE CONSITIPATION Last Admin: 07/10/18 11:25 Dose: 30 ml Levetiracetam (Keppra) 750 mg PO BID [facility] Last Admin: 07/10/18 09:09 Dose: 750 mg Levothyroxine Sodium (Synthroid) 75 mcg PO DAILY@0600 [facility] Last Admin: 07/10/18 05:07 Dose: 75 mcg Lorazepam (Ativan Inj) 1 mg IV.PUSH Q4H PRN PRN Reason: seizures/anxiety Last Admin: 07/10/18 00:00 Dose: 1 mg Miscellaneous Information ([facility] Ordered Lab Info) 0 each OTHER ONCE ONE Stop: 07/12/18 10:46 Morphine Sulfate (Msir) 15 mg PO Q4H PRN PRN Reason: PAIN SCALE 1 TO 10 Last Admin: 07/10/18 19:14 Dose: 15 mg Morphine Sulfate (Morphine Inj) 2 mg IV.PUSH Q4H PRN PRN Reason: BREAKTHROUGH PAIN Last Admin: 07/10/18 17:19 Dose: 2 mg Pantoprazole Sodium (Protonix) 40 mg PO DAILY [facility] Last Admin: 07/10/18 09:09 Dose: 40 mg Patch Removal (Remove Old Patch) 1 each T-DERMAL Q72H [facility] Last Admin: 07/09/18 13:12 Dose: 1 each Patch Removal (Remove Old Patch) 1 each T-DERMAL Q72H [facility] Last Admin: 07/09/18 13:12 Dose: Not Given Pharmacy Profile Note (Vancomycin Consult Pharmacy) 1 each OTHER UNSCH PRN PRN Reason: Pharmacy to dose Quetiapine Fumarate (Seroquel) 400 mg PO BID [facility] Last Admin: 07/03/18 21:19 Dose: Not Given Quetiapine Fumarate (Seroquel) 100 mg PO HS [facility] Last Admin: 07/09/18 22:19 Dose: 100 mg Sennosides (Senokot) 17.2 mg PO Q12H PRN PRN Reason: Moderate Constipation Sodium Chloride (Ns Flush) 2 ml IV.FLUSH PRN PRN PRN Reason: FLUSH AFTER USING IV ACCESS Last Admin: 07/08/18 09:53 Dose: 2 ml Whey (Beneprotein Powder) 1 packet G-TUBE BID [facility] Allergies/Adverse Reactions: Allergies Allergy/AdvReac Type Severity Reaction Status Date / Time codeine Allergy Severe Hives Unverified 06/30/18 10:28 tramadol Allergy Severe seizure Unverified 08/04/17 18:49 cyclobenzaprine Allergy Unknown Unresponsiv Verified 06/30/18 10:28 e fluvoxamine Allergy Unknown Unresponsiv Verified 06/30/18 10:28 e zolpidem Allergy Unknown Unconscious Verified 06/30/18 10:28 Beta-Blockers Allergy Anaphylaxis Verified 06/30/18 10:28 (Beta-Adrenergic Bloc MRI PRECAUTION AdvReac Severe NON REVO Uncoded 08/04/17 18:49 PACEMAKER Physical Exam Vital signs: Vital Signs 07/10/18 00:00 07/10/18 04:00 07/10/18 08:00 Temperature 97.7 F 97.4 F L 98 F Pulse Rate 59 L 60 69 Respiratory Rate 16 16 18 Blood Pressure 137/78 136/74 150/78 H Pulse Oximetry 98 99 99 07/10/18 12:00 07/10/18 16:00 Temperature 98.5 F 98.2 F Pulse Rate 71 112 H Respiratory Rate 18 17 Blood Pressure 136/76 157/83 H Pulse Oximetry 98 96 Intake & Output 07/10/18 07/10/18 07/11/18 06:59 18:59 06:59 Intake Total 1962.5 / 1962.5 2222.5 / 2222.5 Output Total 2950 / 2950 850 / 850 Balance -987.5 / -987.5 1372.5 / 1372.5 Weight 90.3 kg Intake: IV 1162.5 / 1162.5 1262.5 / 1262.5 D5W/1/2 NS Inj 1,000 ML @ 75 900 / 900 1000 / 1000 mls/hr IV.CONT .[id number] [facility] Rx# :[id number] Vancomycin Inj 1,250 MG In NS 262.5 / 262.5 262.5 / 262.5 Inj 250 ML @ 262.5 mls/hr IV. SIG Q12H [facility] Rx#:[id number] Oral 800 / 800 960 / 960 Output: Urine 2950 / 2950 850 / 850 Other: Date of Last Bowel Movement 07/10/18 # Bowel Movements 1 0 - Detailed Neurological Exam: Coma Scale alert, speech normal CN right pupil >>left pupil but both react to light. EOM intact MOTOR 4/5 BUe 2/5 RLE, 3/5 LLE diminished DTR Objective Laboratory Results - last 24 hr 07/08/18 07/09/18 07/09/18 09:06 23:09 23:58 Creatinine Estimated GFR POC Glucose 67 L 102 CSF Albumin 69.6 H CSF IgG 16.1 H Serum IgG 840 Serum Albumin 2410 L Serum IgG/Albumin 0.4 CSF IgG/Albumin 0.23 H CSF IgG Synthesis Rate 26.71 H Ser Oligoclonal Bands 6 CSF Oligoclonal Bands 6 CSF/Serum IgG Index 0.66 CSF Olig Protein Interp 0 CSF VDRL Non-reactive CSF N.mening B/E.coli K1 Cancelled CSF N.meningitidis A/Y Cancelled Bacterial Ag Source Cancelled H.influenzae Type B Ag Cancelled N. meningitidis C/W 135 Cancelled Group B Strep Antigen Cancelled S. pneumoniae Antigen Cancelled 07/10/18 07/10/18 07/10/18 04:41 04:53 09:09 Creatinine 0.60 Estimated GFR Greater than 89 POC Glucose 92 120 H CSF Albumin CSF IgG Serum IgG Serum Albumin Serum IgG/Albumin CSF IgG/Albumin CSF IgG Synthesis Rate Ser Oligoclonal Bands CSF Oligoclonal Bands CSF/Serum IgG Index CSF Olig Protein Interp CSF VDRL CSF N.mening B/E.coli K1 CSF N.meningitidis A/Y Bacterial Ag Source H.influenzae Type B Ag N. meningitidis C/W 135 Group B Strep Antigen S. pneumoniae Antigen 07/10/18 07/10/18 07/10/18 13:23 15:19 19:32 Creatinine Estimated GFR POC Glucose 88 112 H 84 CSF Albumin CSF IgG Serum IgG Serum Albumin Serum IgG/Albumin CSF IgG/Albumin CSF IgG Synthesis Rate Ser Oligoclonal Bands CSF Oligoclonal Bands CSF/Serum IgG Index CSF Olig Protein Interp CSF VDRL CSF N.mening B/E.coli K1 CSF N.meningitidis A/Y Bacterial Ag Source H.influenzae Type B Ag N. meningitidis C/W 135 Group B Strep Antigen S. 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 Transverse myelitis and also adrenomyeloneuropathy is possible. However there are no upper motor neuron signs such as hyperreflexia or Babinski signs RECOMMEND---hematology consult to consider plasmapheresis for 5 treatments every other day.
[2018-07-10] MEDS: QUEtiapine 100 MG Tablet PO SCH (21:27)
[2018-07-10] MEDS: Beneprotein Powder Packet G-TUBE SCH (21:30)
[2018-07-11] MEDS: Morphine Sulfate Inj 2 MG/ML Vial IV.PUSH PRN ×5 (02:22→22:49)
[2018-07-11] MEDS: Morphine Sulfate 15 MG IR Tablet PO PRN ×4 (04:30→20:21)
[2018-07-11] MEDS: Insulin NovoLIN Regular Correctional Sugar Inj SQ SCH ×6 (04:33→23:16)
[2018-07-11] MEDS: Dextrose 5%/NaCl 0.45% Inj 1,000 ML IV.CONT SCH ×4 (05:45→22:54)
[2018-07-11] MEDS: Levothyroxine 75 MCG Tablet PO SCH (06:38)
[2018-07-11] MEDS: Hydrocortisone Sod Succinate 100 MG Vial IV.PUSH SCH ×2 (06:39→20:19)
[2018-07-11] MEDS: Gabapentin 300 MG Capsule PO SCH ×3 (09:25→18:12)
[2018-07-11] MEDS: levETIRAcetam 250 MG Tablet PO SCH ×2 (09:25→20:18)
[2018-07-11] MEDS: Beneprotein Powder Packet G-TUBE SCH ×2 (09:25→20:19)
--- NOTE | 2018-07-11 09:45 | P.DIET ---
Nutritional Evaluation Type of nutrition evaluation: follow-up Nutrition consult regarding: Tube Feeding Nutrition screening: [facility] (TF'ing) Screening comments: 06/30 [facility] for TF'ing Objective - Diagnosis ARF, PNA, AMS, Rhabodomylosis - Objective [place] body weight: 62 kg % IBW: 130 (IBW = 136lb) Body Weight Used for Calculations: Actual (66.9kg (admission weight)) Energy Needs - Lower Range (kCal/kg): 25 Energy Needs - Upper Range (kCal/kg): 30 Lower Limit kCal/kg (kCals): 1,650 Upper Limit kCal/kg (kCals): 1,980 Lower Limit Protein Factor (Grams per Kg): 1 Upper Limit Protein Factor (Grams per Kg): 1.2 Lower Protein Needs (Protein): 66 Upper Protein Needs (Protein): 79 Dietitian Reviewed in Medical Record: Curent medications, Intake & Output, Labs , Medical history, Tube feeding Diet Order: TF'ing Speech Therapy Recommendations: Yes (Cleared for ice chips and water) Objective Comments: PMH: Boorhaave Syndrome, 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 Requested re-weight from RN this morning to check accuracy and pt weighed in at 89.5kg which is a significant increase from admission weight at 66.9kg. Reassessed pt's nutritional needs as renal labs are steady at this moment and will recommend to discontinue specialized renal formula and switch to Jevity 1.5 at a rate of 50ml/hour to provide 1800kcal, 76.6g protein and 912ml free water to best meet pt's nutritional needs. Will continue to monitor pt's tolerance to formula, renal labs and weight throughout clinical course. Recommendations: 1. Change TF to Jevity 1.5 at 50ml per hour 2. Continue to monitor renal labs 3. Continue to monitor weights Dietitian to Monitor: Lab values, Renal labs, Intake & Output, Tube feeding tolerance
--- NOTE | 2018-07-11 11:08 | P.PNIM ---
Subjective Interval history: in no acute distress. no significant change in the weakness of the lower extremities. no other new complaints. Physical Exam Vital signs: Last Vital Signs Temp 97.9 F 07/11/18 08:00 Pulse 84 07/11/18 08:00 Resp 18 07/11/18 08:00 BP 151/72 H 07/11/18 08:00 Pulse Ox 100 07/11/18 08:00 Intake & Output 07/09/18 07/10/18 07/11/18 07/12/18 06:59 06:59 06:59 06:59 Intake Total 3285.0 / 3285.0 3325.0 / 3325.0 4162.0 / 4162.0 Output Total 3800 / 3800 2950 / 2950 2700 / 2700 Balance -515.0 / -515.0 375.0 / 375.0 1462.0 / 1462.0 Weight 87.6 kg 90.3 kg 92.3 kg Constitutional no acute distress Routine Respiratory Exam Present CTA bilaterally Routine Cardiovascular Exam Present RRR Routine Abdominal Exam Present soft Routine Extremities Exam Comments: no pedal edema. 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 Jones s/p lumbar puncture 07/08. CT spine MRI, thoracic spine MRI unremarkable Continue PT and OT RF negative, ALAN negative, Lyme not detected Tori bar virus showed positive for antigen and IgG but negative for IgM therefore shows no recent infection or active infection. neurology f/u appreciated; plan for plasmapheresis consulted IR for Vas Cath placement- Hematology consulted. History of pituitary dysfunction. Adrenal insufficiency. Status post hypoglycemic episode. On hydrocortisone 50 mg IV every 8 hours. d/w his endocrinologis today @ [phone]; plan for tapering down the IV Solucortef and then switch to oral Hydrocortisone @ 20 mg tid till outpatient f/u. Hypokalemiarepleted Hypernatremianow resolved change to D5 half-normal saline, levels has improved. Acute renal failure, Rhabdonow resolved Renal indices improving Leukocytosis with bandemia. This has now resolved. Patient had previous pancytopenia, now improving Currently on Vanco, Final blood cultures showed no growth, Wound cx: [place], MRSA, Tamika Seizure disorder. Continue Keppra and gabapentin. Ativan 1 mg IV every 4hours p.r.n. for seizures. Appreciate input from neurology EEG noted and reviewed with no focal abnormality is noted and no seizure activity is seen. Head MRI unremarkable Left basilar airspace disease. Continue with oxygen and maintain sats >92%. Bronchodilators. CXR: Minimal left basilar airspace disease Pacemaker secondary to bradycardia. [employer] to reset pacemaker prior to MRI. History of Boerhaave syndrome with spit fistula esophagectomy. Previous J-tube placement. Elevated liver enzymes. Hep C Hepatitis profile: + Hep C Ig ab US abdomen: Hepatosplenomegaly On Protonix 40 mg p.o. 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 At this time will not pursue modified barium swallow until neuromuscular status workup is completed. At this time we will continue tube feeds. on 50 mls per hour Suplena with 2 packets of bit of protein per dietitian recommendations. GI prophylaxis- Protonix 40 mg daily DVT prophylaxis- SCD. Progress Note: Quality VTE Deep Vein Thrombosis/Pulmonary Embolism Present on Admission: No _ (1) Acute renal failure Qualifiers: Acute renal failure type: (2) Rhabdomyolysis Qualifiers: Encounter type: Rhabdomyolysis type:
[2018-07-11] MEDS: Vancomycin Inj 1,250 MG in Sodium Chlor 0.9% Inj 250 ML IV.SIG SCH ×2 (11:31→22:54)
[2018-07-11] MEDS ORDERED: *Heparin 10,000 UNITS/10 ML Vial Periprocedural ONLY ONE (14:11)
[2018-07-11] MEDS ORDERED: Heparin Central Flush 100 UNIT/ML 5 ML Vial IV.FLUSH PRN (14:35)
--- NOTE | 2018-07-11 14:37 | P.RAD ---
Post Procedure Progress Note - Pre Procedure Diagnosis (1) Acute renal failure - Post Procedure Diagnosis (1) Acute renal failure - Procedure Information Procedure Date: 07/11/18 Supervising Radiologist: Kings Alvares Jr, MD Proceduralist/Assist: Buddy Shrestha Estimated blood loss (mL): 0 Anesthesia: Local - Plan of Activity Patient to Unit: Nursing Unit Patient Condition: Good See PACS Report for procedural detail/treatment. [facility] Radiology Procedures right Internal Jugular Hemodialysis Catheter Non-Tunneled Placement Device: dual lumen Martiniquais: 14 - Additional Detail Findings: NATALIA Lord in good position and functions well. OK to use.
--- NOTE | 2018-07-11 14:41 | MB ---
cc: Driss Ibrahim MD DATE: 07/11/2018 REQUESTING PHYSICIAN: Dr. Andrea Jones REASON FOR CONSULTATION: Evaluation for plasmapheresis for neurologic diagnosis. 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 Was brought into the emergency room on 06/30/2018 by his mother, who called EMS as the patient did not return her phone call that morning. The patient was found to be having altered mental status and was brought into the emergency room with hypotension and tachycardia, and subsequently was fluid resuscitated and was admitted to the hospital and found to have acute renal insufficiency due to rhabdomyolysis and also was noted to have left upper extremity weakness and right lower extremity weakness, which are also sudden and new. He was then evaluated by neurology, who performed extensive workup and Dr. 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 Mr. Daniel is doing well. He is much better than when he was admitted to the hospital according to him, but he still continues to have right leg and left arm weakness and he is quite concerned about any deterioration and wants to proceed with plasmapheresis as soon as possible. He also complains of having poor venous access and wants a permanent IV line placed for him. REVIEW OF SYSTEMS: Denies headaches or sensory symptoms at this time. He does not have any blurring of vision. He complains that his right pupil is dilated. Does not have any nausea, vomiting, abdominal pain, distention, blood in stool or black stools. No cough, chest pain or shortness of breath. No frequency, urgency or hematuria. No fevers or night sweats. PAST MEDICAL HISTORY: Long and complicated as above. In addition, he also has renal insufficiency, seizure disorder, anxiety, obsessive-compulsive disorder by his own description and PTSD. He also has a history of hepatitis C with possible cirrhosis and chronic mild thrombocytopenia. Admits to smoking cigarettes. Denies alcohol or drug abuse. He is disabled from his medical problems and stays at home most of the time, but he has been physically quite active, including fixing his grandmother's Nathaniel lights the night before this sudden episode of altered mental status and motor weakness developed. MEDICATIONS: He is on: 1. Albuterol. 2. Gabapentin. 3. Fentanyl 4. Keppra. 5. Synthroid. 6. Ativan. 7. Morphine sulfate. 8. Protonix. 9. Seroquel. 10. He is also receiving vancomycin with pharmacy following the levels. 11. He is on hydrocortisone supplementation. PHYSICAL EXAMINATION: GENERAL: Young male, chronically ill-appearing, in no acute distress. VITAL SIGNS: Stable. He is afebrile. HEENT: Pallor present. No icterus. No palpable adenopathy in the neck or axillae. HEENT significant for left neck spit valve ostomy with bag and no evidence of bleeding. NEUROLOGIC: Alert and oriented x4. A 3/5 left upper extremity weakness and 0/5 right lower extremity weakness. No clonus. No hyperreflexia. NECK: No JVD. CARDIAC: S1, S2. Regular rate and rhythm. Left chest with pacemaker in place. LUNGS: Clear, without crackles or wheeze. ABDOMEN: Soft, without palpable hepatomegaly, questionable splenomegaly. No free fluid clinically. EXTREMITIES: No edema or evidence of DVTs. SKIN: Multiple scratch garvin noted on both lower extremities and in the abdominal wall. There are striae also noted on the abdominal wall. LABORATORY DATA: Labs significant for white count of 5.5, hemoglobin 13.3, platelets 194 on 07/08/2018. On 07/05/2018 the platelets were 105, white count 3.5, hemoglobin 12.6. Liver enzymes: Albumin 2, AST 1092 and ALT 302 on 07/01/2018. Alkaline phosphatase is 161. CK was 333,082. IMAGIN. Head CT on 06/30/2018, negative. 2. MRI of the brain on 07/03/2018 was also negative. Neurology consultation report reviewed. Case discussed with Dr. Jones. 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 I had a detailed discussion with Mr. Daniel regarding the procedure of plasmapheresis and what it entails and the expectant side effects including electrolyte shifts, calcium depletion as well as thrombocytopenia, consumptive coagulopathy and hypoglobulinemia resulting in infections in the lung if the procedure is chronic. Other issues were discussed with the patient and he wants to have a permanent catheter placed. I advised him that a Port-A-Cath or a PICC line would not be most ideal for plasmapheresis and that he would need a Vascath for that and that will be arranged by with interventional radiology per my discussion with Dr. Rivera, the hospitalist. Case discussed with Dr. Jones also. We will have the plasmapheresis started after Vascath is placed and schedule to be determined by Dr. Jones. Hematology will follow patient in the hospital. MD SEAN Kulkarni/amelia/se , 01:23 PM , 01:40 PM MTDD
--- NOTE | 2018-07-11 16:14 | IR ---
EXAM DATE: 07/11/2018 2:56 PM EST AGE/SEX: 32 years / Male INDICATIONS: Patient with acute renal failure in need of non tunneled dialysis catheter. CLINICAL DATA: This is the patient's initial encounter. Patient reports that signs and symptoms have been present for 2 weeks and indicates a pain score of 0/10. MEDICAL/SURGICAL HISTORY: Boerhaave syndrome, Adrenal insufficiency, Pituitary dysfunction, PTSD, Sei zure Pacemaker. J-Tube, Spit fistula esophagectomy COMPARISON: No prior exams available for comparison. FLUORO TIME (min): 0.3 IMAGE SERIES: 1 RADIATION DOSE: 5mGy ACCESS SITE: Right internal jugular vein DEVICE(S): 14 [place] double lumen X15CM Schon catheter . . PROCEDURE : 1. Ultrasound guided venipuncture. 2. Fluoroscopic guidance. 3. Central line placement. The risks, benefits and alternatives to the procedure were explained and verbal and written consent w as obtained. The site was prepped in sterile fashion. Full sterile technique was used, including ca p, mask, sterile gloves and gown and a large sterile sheet. Hand hygiene and 2% chlorhexidine prep w as utilized per protocol for cutaneous antisepsis with appropriate dry time for site. Sterile gel an d sterile probe cover were utilized for ultrasound guidance. The skin and subcutaneous tissues were infiltrated with local anesthetic solution. A suitable site a lisa the vein was selected with ultrasound and fluoroscopic guidance. A small incision was made. Th e vein was accessed under direct ultrasound visualization using the micropuncture technique. The jen ropuncture set was exchanged for a 0.035 wire. The tract was dilated. The catheter was advanced int o position under direct fluoroscopic visualization, and was advanced with the tip at the junction of the superior vena cava and rt atrium. The catheter was fixed in place with suture and a sterile dres sing was applied. The patient tolerated the procedure well and there were no complications. CONCLUSION: 1. Uncomplicated line placement as above. Electronically signed by: Kings Alvares MD Board Certified Radiologist 07/11/2018 4:13 PM EST
[2018-07-11] MEDS: QUEtiapine 100 MG Tablet PO SCH ×2 (20:18→22:53)
--- NOTE | 2018-07-11 20:41 | P.PNNEU ---
Subjective Subjective Comments: no new c/o Active Medications: Active Medications Al Hydroxide/Mg Hydroxide (Milk Of Magnesia Liq) 30 ml PO Q12H PRN PRN Reason: Mild Constipation Last Admin: 07/07/18 15:45 Dose: 30 ml Albuterol (Duoneb Neb (Prn)) 1 ampul NEB Q2HR NEB PRN PRN Reason: WHEEZING Last Admin: 07/09/18 17:25 Dose: 1 ampul Bisacodyl (Dulcolax Supp) 10 mg RECTAL DAILY PRN PRN Reason: SEVERE CONSITIPATION Dextrose (D50w Vial) 50 ml IV.PUSH UNSCH PRN PRN Reason: PER HYPOGLYCEMIA PROTOCOL Last Admin: 07/09/18 23:19 Dose: 50 ml Fentanyl (Duragesic 25 Mcg Patch.72hr) 1 patch T-DERMAL Q72H [facility] Last Admin: 07/09/18 13:02 Dose: 1 patch Gabapentin (Neurontin) 400 mg PO TID ISIAH Glucagon (Glucagon Inj) 1 mg OTHER PRN PRN PRN Reason: for Hypoglycemia Protocol Heparin Sodium (Porcine) (Heparin Central Flush) 0 unit IV.FLUSH DAILY PRN PRN Reason: SEE DOSE INSTRUCTIONS Hydrocortisone Sodium Succinate (Solucortef Inj) 50 mg IV.PUSH Q12HR [facility] Last Admin: 07/11/18 20:19 Dose: 50 mg Dextrose/Sodium Chloride (D5w/1/2 Ns Inj) 1,000 mls @ 75 mls/hr IV.CONT .[id number] [facility] Last Admin: 07/11/18 20:18 Dose: Not Given Vancomycin HCl 1,250 mg/ (Sodium Chloride) 262.5 mls @ 262.5 mls/hr IV.SIG Q12H [facility] Last Infusion: 07/11/18 12:25 Dose: Infused Insulin Human Regular (Novolin R Correctional Sugar Inj) 0 units SQ Q4HR [facility]; Protocol Last Admin: 07/11/18 20:00 Dose: Not Given Lactulose (Lactulose Liq) 30 ml PO DAILY PRN PRN Reason: SEVERE CONSITIPATION Last Admin: 07/11/18 04:40 Dose: 30 ml Levetiracetam (Keppra) 750 mg PO BID [facility] Last Admin: 07/11/18 20:18 Dose: 750 mg Levothyroxine Sodium (Synthroid) 75 mcg PO DAILY@0600 [facility] Last Admin: 07/11/18 06:38 Dose: 75 mcg Lorazepam (Ativan Inj) 1 mg IV.PUSH Q4H PRN PRN Reason: seizures/anxiety Last Admin: 07/11/18 16:28 Dose: 1 mg Miscellaneous Information ([facility] Ordered Lab Info) 0 each OTHER ONCE ONE Stop: 07/12/18 10:46 Morphine Sulfate (Msir) 15 mg PO Q4H PRN PRN Reason: PAIN SCALE 1 TO 10 Last Admin: 07/11/18 20:21 Dose: 15 mg Morphine Sulfate (Morphine Inj) 2 mg IV.PUSH Q4H PRN PRN Reason: BREAKTHROUGH PAIN Last Admin: 07/11/18 18:11 Dose: 2 mg Pantoprazole Sodium (Protonix) 40 mg PO DAILY [facility] Last Admin: 07/11/18 09:25 Dose: 40 mg Patch Removal (Remove Old Patch) 1 each T-DERMAL Q72H [facility] Last Admin: 07/09/18 13:12 Dose: 1 each Patch Removal (Remove Old Patch) 1 each T-DERMAL Q72H [facility] Last Admin: 07/09/18 13:12 Dose: Not Given Pharmacy Profile Note (Vancomycin Consult Pharmacy) 1 each OTHER UNSCH PRN PRN Reason: Pharmacy to dose Quetiapine Fumarate (Seroquel) 400 mg PO BID [facility] Last Admin: 07/03/18 21:19 Dose: Not Given Quetiapine Fumarate (Seroquel) 150 mg PO HS [facility] Sennosides (Senokot) 17.2 mg PO Q12H PRN PRN Reason: Moderate Constipation Sodium Chloride (Ns Flush) 2 ml IV.FLUSH PRN PRN PRN Reason: FLUSH AFTER USING IV ACCESS Last Admin: 07/10/18 21:24 Dose: 2 ml Sodium Chloride (Ns Flush) 0 ml IV.FLUSH PRN PRN PRN Reason: SEE DOSE INSTRUCTIONS Whey (Beneprotein Powder) 1 packet G-TUBE BID [facility] Last Admin: 07/11/18 20:19 Dose: Not Given Allergies/Adverse Reactions: Allergies Allergy/AdvReac Type Severity Reaction Status Date / Time codeine Allergy Severe Hives Unverified 06/30/18 10:28 tramadol Allergy Severe seizure Unverified 08/04/17 18:49 cyclobenzaprine Allergy Unknown Unresponsiv Verified 06/30/18 10:28 e fluvoxamine Allergy Unknown Unresponsiv Verified 06/30/18 10:28 e zolpidem Allergy Unknown Unconscious Verified 06/30/18 10:28 Beta-Blockers Allergy Anaphylaxis Verified 06/30/18 10:28 (Beta-Adrenergic Bloc MRI PRECAUTION AdvReac Severe NON REVO Uncoded 08/04/17 18:49 PACEMAKER Physical Exam Vital signs: Vital Signs 07/10/18 23:54 07/11/18 00:00 07/11/18 03:45 Temperature 98 F Pulse Rate 59 L 64 60 Respiratory Rate 18 Blood Pressure 123/72 Pulse Oximetry 98 07/11/18 04:00 07/11/18 08:00 07/11/18 12:00 Temperature 97.1 F L 97.9 F 97.9 F Pulse Rate 67 84 61 Respiratory Rate 18 18 18 Blood Pressure 147/80 H 151/72 H 154/84 H Pulse Oximetry 99 100 100 07/11/18 16:00 Temperature 98.2 F Pulse Rate 65 Respiratory Rate 18 Blood Pressure 148/72 H Pulse Oximetry 97 Intake & Output 07/11/18 07/11/18 07/12/18 06:59 18:59 06:59 Intake Total 1939.5 / 1939.5 543.5 / 543.5 Output Total 1850 / 1850 Balance 89.5 / 89.5 543.5 / 543.5 Weight 92.3 kg Intake: IV 981.5 / 981.5 543.5 / 543.5 D5W/1/2 NS Inj 1,000 ML @ 75 719 / 719 281 / 281 mls/hr IV.CONT .[id number] ISIAH Rx# :[id number] Vancomycin Inj 1,250 MG In NS 262.5 / 262.5 262.5 / 262.5 Inj 250 ML @ 262.5 mls/hr IV. SIG Q12H ISIAH Rx#:[id number] Oral 480 / 480 Tube Feeding 478 / 478 Output: Urine 1850 / 1850 Other: # Bowel Movements 0 - Routine Neurological Exam alert, follow commands Cn intact MOTOR 4/5 RUe, 5/5 LUE 3/5 BLE Objective Laboratory Results - last 24 hr 07/08/18 07/08/18 07/10/18 09:06 09:06 23:26 POC Glucose 100 CSF Lyme Disease DNA Not detected CSF Cryptococcus Ag Not detected 07/11/18 07/11/18 07/11/18 04:31 07:53 12:09 POC Glucose 112 H 85 76 CSF Lyme Disease DNA CSF Cryptococcus Ag 07/11/18 07/11/18 07/11/18 13:53 14:38 16:17 POC Glucose 73 79 70 CSF Lyme Disease DNA CSF Cryptococcus Ag 07/11/18 19:30 POC Glucose 79 CSF Lyme Disease DNA CSF Cryptococcus Ag Microbiology 07/08/18 09:06 Gram Stain - Final Lumbar Puncture CSF Culture - Final No growth in 72 hours Review/Management - Diagnosis (1) Myelopathy Code(s): G95.9 - Disease of spinal cord, unspecified Status: Acute Current Visit: Yes - Review/Management Plan: With the absence of deep tendon reflexes and CSF with elevated protein, this is likely a form of Guillain [place]/Joy Mac syndrome . Transverse myelitis and also adrenomyeloneuropathy is possible. However there are no upper motor neuron signs such as hyperreflexia or Babinski signs RECOMMEND---proceed with plasmapheresis
[2018-07-11] MEDS: Gabapentin 400 MG Capsule PO SCH (22:51)
[2018-07-12] MEDS: Morphine Sulfate 15 MG IR Tablet PO PRN ×5 (03:07→20:29)
[2018-07-12] MEDS: Insulin NovoLIN Regular Correctional Sugar Inj SQ SCH ×5 (03:11→20:44)
[2018-07-12] MEDS: Levothyroxine 75 MCG Tablet PO SCH (05:23)
[2018-07-12] MEDS: Morphine Sulfate Inj 2 MG/ML Vial IV.PUSH PRN ×5 (05:23→23:14)
[2018-07-12 05:35] LABS: Glomerular Filtration Rate Greater Than 89 mL/min (>89)
[2018-07-12] MEDS: Hydrocortisone Sod Succinate 100 MG Vial IV.PUSH SCH ×2 (09:32→20:31)
[2018-07-12] MEDS: levETIRAcetam 250 MG Tablet PO SCH ×2 (09:32→20:31)
[2018-07-12] MEDS: Gabapentin 400 MG Capsule PO SCH ×3 (09:32→18:21)
[2018-07-12] MEDS: Dextrose 5%/NaCl 0.45% Inj 1,000 ML IV.CONT SCH ×2 (09:34→23:48)
[2018-07-12] MEDS: Beneprotein Powder Packet G-TUBE SCH ×2 (09:34→20:44)
[2018-07-12 10:18] LABS: Hematocrit 31.5 % (39.0-51.0); Hemoglobin 11.3 gm/dL (13.0-17.0); Mean Corpuscular HGB Conc 35.7 % (32.0-36.0); Mean Corpuscular Hemoglobin 34.3 pg (27.0-34.0); Mean Corpuscular Volume 96.1 fL (80.0-100.0); Mean Platelet Volume 8.2 fL (7.0-11.0); Platelet Count 143 th/mm3 (150-450); Red Blood Count 3.28 mil/mm3 (4.50-5.90); Red Cell Distribution Width 16.4 % (11.6-17.2); White Blood Count 4.4 th/mm3 (4.0-11.0)
--- NOTE | 2018-07-12 10:19 | P.PNIM ---
Subjective Interval history: in no acute distress. still with lower extremity weakness. no new complaints. d/w the RN. Physical Exam Vital signs: Last Vital Signs Temp 98.1 F 07/12/18 04:00 Pulse 71 07/12/18 04:00 Resp 18 07/12/18 05:59 BP 144/80 H 07/12/18 04:00 Pulse Ox 99 07/12/18 04:00 Intake & Output 07/10/18 07/11/18 07/12/18 07/13/18 06:59 06:59 06:59 06:59 Intake Total 3325.0 / 3325.0 4162.0 / 4162.0 1087.0 / 1087.0 281 / 281 Output Total 2950 / 2950 2700 / 2700 1600 / 1600 Balance 375.0 / 375.0 1462.0 / 1462.0 -513.0 / -513.0 281 / 281 Weight 90.3 kg 92.3 kg 90.6 kg Constitutional no acute distress Routine Respiratory Exam Present CTA bilaterally Routine Cardiovascular Exam Present RRR Routine Abdominal Exam Present soft Routine Extremities Exam Comments: no pedal edema. Routine Neurological Exam Present alert and oriented X3 Results Labs CBC & Chem 7: 07/12/18 10:02 07/12/18 04:12 Labs: Microbiology 07/08/18 09:06 Lumbar Puncture Gram Stain - Final 07/08/18 09:06 Lumbar Puncture CSF Culture - Final No growth in 72 hours Imaging Imaging: Impressions Catheter Placement 07/11/18 00:00 CONCLUSION: 1. Uncomplicated line placement as above. 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 Jones s/p lumbar puncture 07/08. CT spine MRI, thoracic spine MRI unremarkable Continue PT and OT RF negative, ALAN negative, Lyme not detected Tori bar virus showed positive for antigen and IgG but negative for IgM therefore shows no recent infection or active infection. neurology f/u appreciated; plasmapheresis per neurology- s/p vas cath placement 07/11 Hematology following. History of pituitary dysfunction. Adrenal insufficiency. Status post hypoglycemic episode. On hydrocortisone 50 mg IV every 8 hours. d/w his sound tester today @ [phone]; plan for tapering down the IV Solucortef and then switch to oral Hydrocortisone @ 20 mg tid till outpatient f/u. Hypokalemiarepleted Hypernatremianow resolved change to D5 half-normal saline, levels has improved. Acute renal failure, Rhabdonow resolved Renal indices improving Leukocytosis with bandemia. This has now resolved. Final blood cultures showed no growth, Wound cx: Pantoea, MRSA, Tamika. will dc Vanco. Seizure disorder. Continue Keppra and gabapentin. Ativan 1 mg IV every 4hours p.r.n. for seizures. Appreciate input from neurology EEG noted and reviewed with no focal abnormality is noted and no seizure activity is seen. Head MRI unremarkable Left basilar airspace disease. Continue with oxygen and maintain sats >92%. Bronchodilators. CXR: Minimal left basilar airspace disease Pacemaker secondary to bradycardia. [employer] to reset pacemaker prior to MRI. History of Boerhaave syndrome with spit fistula esophagectomy. Previous J-tube placement. Elevated liver enzymes. Hep C Hepatitis profile: + Hep C Ig ab US abdomen: Hepatosplenomegaly On Protonix 40 mg p.o. 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 At this time we will continue tube feeds. GI prophylaxis- Protonix 40 mg daily DVT prophylaxis- SCD. Progress Note: Quality VTE Deep Vein Thrombosis/Pulmonary Embolism Present on Admission: No _ (1) Acute renal failure Qualifiers: Acute renal failure type: (2) Rhabdomyolysis Qualifiers: Encounter type: Rhabdomyolysis type:
[2018-07-12] MEDS ORDERED: Pharmacy Ordered Lab Info OTHER ONE (10:45)
--- NOTE | 2018-07-12 12:51 | FL ---
EXAM DATE: 07/12/2018 12:13 PM EST AGE/SEX: 32 years / Male INDICATIONS: Dysphagia. CLINICAL DATA: This is the patient's initial encounter. Patient reports that signs and symptoms have been present for 4 - 6 months and indicates a pain score of 0/10. MEDICAL/SURGICAL HISTORY: . MRSA , Boerhaave syndrome, hypoglycemic, thyroid, adrenal gland and pituitary complications, seizures, Joy, Higgins syndrome Pacemaker. esophagus removed, spit fistu la. COMPARISON: No prior exams available for comparison. FLUORO TIME: 0.8 IMAGE COUNT: 0 RADIATION DOSE: 285.0 DAP FINDINGS: A limited barium swallow was performed and no pictures were obtained. Fluoroscopy demonstrates no rajan dence of penetration of the supraglottic larynx or tracheal aspiration with multiple swallows of thin barium. The barium passes from the mouth into the patient's collection bag without extravasation. CONCLUSION: No evidence of penetration of the supraglottic larynx or tracheal aspiration with multiple swallows o f thin barium. Electronically signed by: Kal Ferris MD Board Certified Radiologist 07/12/2018 12:17 PM EST
[2018-07-12] MEDS ORDERED: Famotidine PF Inj 20 MG/2 ML Vial IV.PUSH PRN (13:00)
[2018-07-12] MEDS ORDERED: ALBUMIN HUMAN 5% IV.SIG ONE (13:00)
[2018-07-12] MEDS ORDERED: CALCIUM GLUCONATE IV.SIG ONE ×2 (13:00→14:00)
[2018-07-12] MEDS ORDERED: Sod Chloride 0.9% Inj 1,000 ML IV.SIG ONE (13:00)
[2018-07-12] MEDS ORDERED: SODIUM CHLOR 0.9% IV.SIG ONE ×2 (13:00→14:00)
[2018-07-12] MEDS ORDERED: Heparin 10,000 UNITS/10 ML Vial (for IV use) IV.FLUSH PRN (13:02)
[2018-07-12] MEDS: Anticoagulant Citrate Dextrose 1,000 ML Solution EXTRACORPO SCH (15:09)
--- NOTE | 2018-07-12 20:07 | P.PNNEU ---
Subjective Subjective Comments: tolerated first plasma pheresis today No new neuro sx. Has not noted improvement in LE strength Active Medications: Active Medications Al Hydroxide/Mg Hydroxide (Milk Of Magnesia Liq) 30 ml PO Q12H PRN PRN Reason: Mild Constipation Last Admin: 07/07/18 15:45 Dose: 30 ml Albuterol (Duoneb Neb (Prn)) 1 ampul NEB Q2HR NEB PRN PRN Reason: WHEEZING Last Admin: 07/09/18 17:25 Dose: 1 ampul Bisacodyl (Dulcolax Supp) 10 mg RECTAL DAILY PRN PRN Reason: SEVERE CONSITIPATION Dextrose (D50w Vial) 50 ml IV.PUSH UNSCH PRN PRN Reason: PER HYPOGLYCEMIA PROTOCOL Last Admin: 07/09/18 23:19 Dose: 50 ml Diphenhydramine HCl (Benadryl Inj) 25 mg IV.PUSH UNSCH PRN PRN Reason: ALLERGIC REACTION Stop: 07/20/18 23:00 Last Admin: 07/12/18 15:11 Dose: 25 mg Famotidine (Pepcid Pf Inj) 20 mg IV.PUSH UNSCH PRN PRN Reason: SEE LABEL COMMENTS Stop: 07/20/18 13:01 Fentanyl (Duragesic 25 Mcg Patch.72hr) 1 patch T-DERMAL Q72H [facility] Last Admin: 07/12/18 13:39 Dose: 1 patch Gabapentin (Neurontin) 400 mg PO TID [facility] Last Admin: 07/12/18 18:21 Dose: 400 mg Glucagon (Glucagon Inj) 1 mg OTHER PRN PRN PRN Reason: for Hypoglycemia Protocol Heparin Sodium (Porcine) (Heparin Central Flush) 0 unit IV.FLUSH DAILY PRN PRN Reason: SEE DOSE INSTRUCTIONS Heparin Sodium (Porcine) (Heparin Inj) 1,000 units IV.FLUSH UNSCH PRN PRN Reason: FLUSH AFTER USING IV ACCESS Stop: 07/20/18 23:00 Last Admin: 07/12/18 15:12 Dose: 1,000 units Hydrocortisone Sodium Succinate (Solucortef Inj) 50 mg IV.PUSH Q12HR [facility] Last Admin: 07/12/18 09:32 Dose: 50 mg Dextrose/Sodium Chloride (D5w/1/2 Ns Inj) 1,000 mls @ 75 mls/hr IV.CONT .[id number] [facility] Last Admin: 07/12/18 09:34 Dose: 75 mls/hr Albumin Human (Alburx 5% Inj) 4,000 mls @ 250 mls/hr IV.SIG ONCE ONE Stop: 07/13/18 04:59 Last Infusion: 07/12/18 17:41 Dose: Infused Insulin Human Regular (Novolin R Correctional Sugar Inj) 0 units SQ Q4HR [facility]; Protocol Last Admin: 07/12/18 16:08 Dose: Not Given Lactulose (Lactulose Liq) 30 ml PO DAILY PRN PRN Reason: SEVERE CONSITIPATION Last Admin: 07/11/18 04:40 Dose: 30 ml Levetiracetam (Keppra) 750 mg PO BID [facility] Last Admin: 07/12/18 09:32 Dose: 750 mg Levothyroxine Sodium (Synthroid) 75 mcg PO DAILY@0600 [facility] Last Admin: 07/12/18 05:23 Dose: 75 mcg Lorazepam (Ativan Inj) 1 mg IV.PUSH Q4H PRN PRN Reason: seizures/anxiety Last Admin: 07/11/18 23:14 Dose: 1 mg Morphine Sulfate (Msir) 15 mg PO Q4H PRN PRN Reason: PAIN SCALE 1 TO 10 Last Admin: 07/12/18 16:09 Dose: 15 mg Morphine Sulfate (Morphine Inj) 2 mg IV.PUSH Q4H PRN PRN Reason: BREAKTHROUGH PAIN Last Admin: 07/12/18 18:22 Dose: 2 mg Pantoprazole Sodium (Protonix) 40 mg PO DAILY [facility] Last Admin: 07/12/18 09:32 Dose: 40 mg Patch Removal (Remove Old Patch) 1 each T-DERMAL Q72H [facility] Last Admin: 07/12/18 14:49 Dose: Not Given Patch Removal (Remove Old Patch) 1 each T-DERMAL Q72H [facility] Last Admin: 07/12/18 14:48 Dose: 1 each Pharmacy Profile Note (Vancomycin Consult Pharmacy) 1 each OTHER UNSCH PRN PRN Reason: Pharmacy to dose Quetiapine Fumarate (Seroquel) 400 mg PO BID [facility] Last Admin: 07/03/18 21:19 Dose: Not Given Quetiapine Fumarate (Seroquel) 150 mg PO HS [facility] Last Admin: 07/11/18 22:53 Dose: 150 mg Sennosides (Senokot) 17.2 mg PO Q12H PRN PRN Reason: Moderate Constipation Sodium Chloride (Ns Flush) 2 ml IV.FLUSH PRN PRN PRN Reason: FLUSH AFTER USING IV ACCESS Last Admin: 07/10/18 21:24 Dose: 2 ml Sodium Chloride (Ns Flush) 0 ml IV.FLUSH PRN PRN PRN Reason: SEE DOSE INSTRUCTIONS Sodium Citrate (Acd-A Solution) 1,000 ml EXTRACORPO Q48H [facility] Stop: 07/20/18 13:00 Last Admin: 07/12/18 15:09 Dose: 1,000 ml Whey (Beneprotein Powder) 1 packet G-TUBE BID [facility] Last Admin: 07/12/18 09:34 Dose: Not Given Allergies/Adverse Reactions: Allergies Allergy/AdvReac Type Severity Reaction Status Date / Time codeine Allergy Severe Hives Unverified 06/30/18 10:28 tramadol Allergy Severe seizure Unverified 08/04/17 18:49 cyclobenzaprine Allergy Unknown Unresponsiv Verified 06/30/18 10:28 e fluvoxamine Allergy Unknown Unresponsiv Verified 06/30/18 10:28 e zolpidem Allergy Unknown Unconscious Verified 06/30/18 10:28 Beta-Blockers Allergy Anaphylaxis Verified 06/30/18 10:28 (Beta-Adrenergic Bloc MRI PRECAUTION AdvReac Severe NON REVO Uncoded 08/04/17 18:49 PACEMAKER Physical Exam Vital signs: Vital Signs 07/11/18 23:16 07/11/18 23:54 07/12/18 00:00 Temperature 97.9 F Pulse Rate 84 77 Respiratory Rate 18 16 18 Blood Pressure 141/69 H Pulse Oximetry 95 07/12/18 04:00 07/12/18 05:59 07/12/18 08:00 Temperature 98.1 F 98.4 F Pulse Rate 71 74 Respiratory Rate 16 18 17 Blood Pressure 144/80 H 154/72 H Pulse Oximetry 99 100 07/12/18 12:00 07/12/18 16:00 Temperature 98.3 F Pulse Rate 69 71 Respiratory Rate 17 Blood Pressure 144/76 H Pulse Oximetry 100 Intake & Output 07/12/18 07/12/18 07/13/18 06:59 18:59 06:59 Intake Total 543.5 / 543.5 6201 / 6201 Output Total 1600 / 1600 1250 / 1250 Balance -1056.5 / -1056.5 4951 / 4951 Weight 90.6 kg Intake: IV 543.5 / 543.5 4521 / 4521 D5W/1/2 NS Inj 1,000 ML @ 75 281 / 281 281 / 281 mls/hr IV.CONT .[id number] [facility] Rx# :[id number] Alburx 5% Inj 4,000 ML @ 250 4000 / 4000 mls/hr IV.SIG ONCE ONE Rx#: [id number] Calcium Gluconate Inj 4 GM In 240 / 240 NS Inj 200 ML @ 60 mls/hr IV. SIG ONCE ONE Rx#:[id number] Vancomycin Inj 1,250 MG In NS 262.5 / 262.5 Inj 250 ML @ 262.5 mls/hr IV. SIG Q12H [facility] Rx#:[id number] Oral 0 / 0 1680 / 1680 Output: Urine 1600 / 1600 1250 / 1250 Other: # Bowel Movements 0 0 - Routine Neurological Exam alert, speech normal CN intact MOTOR 4/5 BUE, 3/4 BLE Objective Laboratory Results - last 24 hr 07/11/18 07/12/18 07/12/18 23:08 03:10 04:12 WBC RBC Hgb Hct MCV MCH MCHC RDW Plt Count MPV Creatinine 0.44 L Estimated GFR Greater than 89 POC Glucose 114 H 99 Vancomycin Trough 07/12/18 07/12/18 07/12/18 09:34 10:02 10:02 WBC 4.4 RBC 3.28 L Hgb 11.3 L Hct 31.5 L MCV 96.1 MCH 34.3 H MCHC 35.7 RDW 16.4 Plt Count 143 L MPV 8.2 Creatinine Estimated GFR POC Glucose 72 Vancomycin Trough 16.0 H 07/12/18 07/12/18 07/12/18 11:51 13:41 16:06 WBC RBC Hgb Hct MCV MCH MCHC RDW Plt Count MPV Creatinine Estimated GFR POC Glucose 77 130 H 140 H Vancomycin Trough 07/12/18 19:37 WBC RBC Hgb Hct MCV MCH MCHC RDW Plt Count MPV Creatinine Estimated GFR POC Glucose 95 Vancomycin Trough Review/Management - Diagnosis (1) Myelopathy Code(s): G95.9 - Disease of spinal cord, unspecified Status: Acute Current Visit: Yes - Review/Management Plan: continue with plasmapheresis for total of 5 treatments
[2018-07-12] MEDS: QUEtiapine 100 MG Tablet PO SCH (20:30)
--- NOTE | 2018-07-13 00:33 | P.PNONC ---
Subjective Interval history: Resting comfortably in bed. Patient with improvement in bilateral lower extremity movement. Objective Vital Signs/Intake & Output: Vital Signs 07/12/18 04:00 07/12/18 05:59 07/12/18 08:00 Temperature 98.1 F 98.4 F Pulse Rate 71 74 Respiratory Rate 16 18 17 Blood Pressure 144/80 H 154/72 H Pulse Oximetry 99 100 07/12/18 12:00 07/12/18 16:00 07/12/18 20:00 Temperature 98.3 F 97.6 F Pulse Rate 69 71 79 Respiratory Rate 17 18 Blood Pressure 144/76 H 151/84 H Pulse Oximetry 100 100 07/13/18 00:00 Temperature 97.9 F Pulse Rate 65 Respiratory Rate 18 Blood Pressure 142/76 H Pulse Oximetry 99 Intake & Output 07/12/18 07/12/18 07/13/18 06:59 18:59 06:59 Intake Total 543.5 / 543.5 6201 / 6201 1000 / 1000 Output Total 1600 / 1600 1250 / 1250 Balance -1056.5 / -1056.5 4951 / 4951 1000 / 1000 Weight 90.6 kg Intake: IV 543.5 / 543.5 4521 / 4521 1000 / 1000 D5W/1/2 NS Inj 1,000 ML @ 75 281 / 281 281 / 281 1000 / 1000 mls/hr IV.CONT .[id number] [facility] Rx# :[id number] Alburx 5% Inj 4,000 ML @ 250 4000 / 4000 mls/hr IV.SIG ONCE ONE Rx#: [id number] Calcium Gluconate Inj 4 GM In 240 / 240 NS Inj 200 ML @ 60 mls/hr IV. SIG ONCE ONE Rx#:[id number] Vancomycin Inj 1,250 MG In NS 262.5 / 262.5 Inj 250 ML @ 262.5 mls/hr IV. SIG Q12H [facility] Rx#:[id number] Oral 0 / 0 1680 / 1680 Output: Urine 1600 / 1600 1250 / 1250 Other: # Bowel Movements 0 0 Result Diagrams: 07/12/18 10:02 07/12/18 04:12 Laboratory Results: Laboratory Results - last 24 hr 07/12/18 07/12/18 07/12/18 03:10 04:12 09:34 WBC RBC Hgb Hct MCV MCH MCHC RDW Plt Count MPV Creatinine 0.44 L Estimated GFR Greater than 89 POC Glucose 99 72 Vancomycin Trough 07/12/18 07/12/18 07/12/18 10:02 10:02 11:51 WBC 4.4 RBC 3.28 L Hgb 11.3 L Hct 31.5 L MCV 96.1 MCH 34.3 H MCHC 35.7 RDW 16.4 Plt Count 143 L MPV 8.2 Creatinine Estimated GFR POC Glucose 77 Vancomycin Trough 16.0 H 07/12/18 07/12/18 07/12/18 13:41 16:06 19:37 WBC RBC Hgb Hct MCV MCH MCHC RDW Plt Count MPV Creatinine Estimated GFR POC Glucose 130 H 140 H 95 Vancomycin Trough Culture Results: Microbiology 07/08/18 09:06 Gram Stain - Final Lumbar Puncture CSF Culture - Final No growth in 72 hours Imaging Studies: Impressions Barium Swallow X-Ray 07/12/18 00:00 CONCLUSION: No evidence of penetration of the supraglottic larynx or tracheal aspiration with multiple swallows of thin barium. Medications: Active Medications Generic Name Dose Route Start Last Admin Trade Name Freq PRN Reason Stop Dose Admin Al Hydroxide/Mg Hydroxide 30 ml 06/30/18 11:38 07/07/18 15:45 Milk Of Magnesia Liq PO 30 ml Q12H PRN Administration Mild Constipation Albuterol 1 ampul 06/30/18 11:38 07/09/18 17:25 Duoneb Neb (Prn) NEB 1 ampul Q2HR NEB PRN Administration WHEEZING Dextrose 50 ml 06/30/18 11:44 07/09/18 23:19 D50w Vial IV.PUSH 50 ml UNSCH PRN Administration PER HYPOGLYCEMIA PROTOCOL Diphenhydramine HCl 25 mg 07/12/18 13:00 07/12/18 15:11 Benadryl Inj IV.PUSH 07/20/18 23:00 25 mg UNSCH PRN Administration ALLERGIC REACTION Fentanyl 1 patch 07/03/18 13:15 07/12/18 13:39 Duragesic 25 Mcg Patch.72hr T-DERMAL 1 patch Q72H [facility] Administration Gabapentin 400 mg 07/11/18 22:00 07/12/18 18:21 Neurontin PO 400 mg TID [facility] Administration Heparin Sodium (Porcine) 1,000 units 07/12/18 13:02 07/12/18 15:12 Heparin Inj IV.FLUSH 07/20/18 23:00 1,000 units UNSCH PRN Administration FLUSH AFTER USING IV ACCESS Hydrocortisone Sodium Succinate 50 mg 07/11/18 21:00 07/12/18 20:31 Solucortef Inj IV.PUSH 50 mg Q12HR [facility] Administration Dextrose/Sodium Chloride 1,000 mls @ 75 mls/hr 07/05/18 16:28 07/12/18 23:48 D5w/1/2 Ns Inj IV.CONT 75 mls/hr .[id number] [facility] Administration Albumin Human 4,000 mls @ 250 mls/hr 07/12/18 13:00 07/12/18 17:41 Alburx 5% Inj IV.SIG 07/13/18 04:59 Infused ONCE ONE Infusion Insulin Human Regular 0 units 07/01/18 16:00 07/12/18 20:44 Novolin R Correctional Sugar Inj SQ Not Given Q4HR [facility] Protocol Lactulose 30 ml 06/30/18 11:38 07/11/18 04:40 Lactulose Liq PO 30 ml DAILY PRN Administration SEVERE CONSITIPATION Levetiracetam 750 mg 07/03/18 21:00 07/12/18 20:31 Keppra PO 750 mg BID [facility] Administration Levothyroxine Sodium 75 mcg 07/04/18 06:00 07/12/18 05:23 Synthroid PO 75 mcg DAILY@0600 [facility] Administration Lorazepam 1 mg 07/09/18 23:04 07/12/18 21:19 Ativan Inj IV.PUSH 1 mg Q4H PRN Administration seizures/anxiety Morphine Sulfate 15 mg 07/03/18 11:38 07/12/18 20:29 Msir PO 15 mg Q4H PRN Administration PAIN SCALE 1 TO 10 Morphine Sulfate 2 mg 07/06/18 12:20 07/12/18 23:14 Morphine Inj IV.PUSH 2 mg Q4H PRN Administration BREAKTHROUGH PAIN Pantoprazole Sodium 40 mg 07/07/18 09:00 07/12/18 09:32 Protonix PO 40 mg DAILY [facility] Administration Patch Removal 1 each 07/03/18 13:00 07/12/18 14:49 Remove Old Patch T-DERMAL Not Given Q72H [facility] Patch Removal 1 each 07/03/18 13:00 12/21/18 14:48 Remove Old Patch T-DERMAL 1 each Q72H [facility] Administration Quetiapine Fumarate 400 mg 07/03/18 21:00 07/03/18 21:19 Seroquel PO Not Given BID [facility] Quetiapine Fumarate 150 mg 07/11/18 22:00 07/12/18 20:30 Seroquel PO 150 mg HS [facility] Administration Sodium Chloride 2 ml 06/30/18 09:58 07/10/18 21:24 Ns Flush IV.FLUSH 2 ml PRN PRN Administration FLUSH AFTER USING IV ACCESS Sodium Citrate 1,000 ml 07/12/18 12:45 07/12/18 15:09 Acd-A Solution EXTRACORPO 07/20/18 13:00 1,000 ml Q48H [facility] Administration Whey 1 packet 07/10/18 21:00 07/12/18 20:44 Beneprotein Powder G-TUBE Not Given BID [facility] Objective Remarks: GENERAL: Well-nourished, well-developed patient. SKIN: Warm and dry. HEAD: Normocephalic. EYES: No scleral icterus. No injection or drainage. NECK: Supple, trachea midline. No JVD or lymphadenopathy.Bag in place LYMPHATIC: No adenopathy. CARDIOVASCULAR: Regular rate and rhythm without murmurs. RESPIRATORY: No accessory muscle use. GASTROINTESTINAL: Abdomen soft, non-tender, nondistended. EXTREMITIES: No cyanosis, or edema. MUSCULOSKELETAL: Adequate muscle tone. NEUROLOGICAL: Awake, alert, and oriented x3.weakness in bilateral legs PSYCHIATRIC: Appropriate mood and affect; insight and judgment normal. 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 Seen by my konstantin Murphy. WIll plan for 5 sessions of plasmaphersis. Tolerated first session well. Will follow up of CBC, CMP and coags.
[2018-07-13] MEDS: Morphine Sulfate 15 MG IR Tablet PO PRN ×5 (01:45→21:39)
[2018-07-13] MEDS: Insulin NovoLIN Regular Correctional Sugar Inj SQ SCH ×7 (02:33→23:23)
[2018-07-13] MEDS: Morphine Sulfate Inj 2 MG/ML Vial IV.PUSH PRN ×5 (04:34→23:18)
[2018-07-13] MEDS: Levothyroxine 75 MCG Tablet PO SCH (05:36)
[2018-07-13 07:24] LABS: Baso % (Auto) 0.3 % (0.0-2.0); Hematocrit 30.3 % (39.0-51.0); Hemoglobin 10.9 gm/dL (13.0-17.0); Lymph # (Auto) 0.9 th/mm3 (1.0-4.8); Lymph % (Auto) 19.6 % (9.0-44.0); Mean Corpuscular HGB Conc 35.8 % (32.0-36.0); Mean Corpuscular Hemoglobin 34.5 pg (27.0-34.0); Mean Corpuscular Volume 96.4 fL (80.0-100.0); Mean Platelet Volume 8.4 fL (7.0-11.0); Mono # (Auto) 0.5 th/mm3 (0.0-0.9); Mono % (Auto) 11.7 % (0.0-8.0); Neut # (Auto) 3.1 th/mm3 (1.8-7.7); Neut % (Auto) 67.4 % (16.0-70.0); Platelet Count 131 th/mm3 (150-450); Red Blood Count 3.15 mil/mm3 (4.50-5.90); White Blood Count 4.6 th/mm3 (4.0-11.0)
[2018-07-13 07:35] LABS: Activated Partial Thrombo Time 29.1 sec (23.4-31.7); INR 1.2 Ratio; Prothrombin Time 12.6 sec (9.8-11.6)
[2018-07-13 07:44] LABS: Alanine Aminotransferase 45 U/L (12-78); Albumin 3.2 g/dL (3.4-5.0); Anion Gap 6 meq/L (5-15); Aspartate Aminotransferase 25 U/L (15-37); Blood Urea Nitrogen 13 mg/dL (7-18); Calcium 7.9 mg/dL (8.5-10.1); Carbon Dioxide 31.5 meq/L (21.0-32.0); Chloride 108 meq/L (98-107); Glomerular Filtration Rate Greater Than 89 mL/min (>89); Glucose,Random 81 mg/dL (74-106); Potassium 3.4 meq/L (3.5-5.1); Sodium 145 meq/L (136-145)
[2018-07-13 07:45] LABS: Alkaline Phosphatase 43 U/L (45-117); Total Protein 4.7 g/dL (6.4-8.2)
[2018-07-13] MEDS: Gabapentin 400 MG Capsule PO SCH ×3 (10:07→17:00)
[2018-07-13] MEDS: levETIRAcetam 250 MG Tablet PO SCH ×2 (10:07→21:40)
[2018-07-13] MEDS: Hydrocortisone Sod Succinate 100 MG Vial IV.PUSH SCH (10:08)
[2018-07-13] MEDS: Beneprotein Powder Packet G-TUBE SCH ×2 (10:09→21:41)
[2018-07-13] MEDS: Dextrose 5%/NaCl 0.45% Inj 1,000 ML IV.CONT SCH ×2 (10:14→23:21)
--- NOTE | 2018-07-13 10:39 | P.PNIM ---
Subjective Interval history: in no acute distress. tolerated the first plasmapheresis treatment well. d/w the RN and no acute issues over night. Physical Exam Vital signs: Last Vital Signs Temp 98.1 F 07/13/18 08:00 Pulse 83 07/13/18 08:00 Resp 18 07/13/18 08:00 BP 144/76 H 07/13/18 08:00 Pulse Ox 100 07/13/18 08:00 Intake & Output 07/11/18 07/12/18 07/13/18 07/14/18 06:59 06:59 06:59 06:59 Intake Total 4162.0 / 4162.0 1087.0 / 1087.0 7201 / 7201 281 / 281 Output Total 2700 / 2700 1600 / 1600 3775 / 3775 Balance 1462.0 / 1462.0 -513.0 / -513.0 3426 / 3426 281 / 281 Weight 92.3 kg 90.6 kg 90 kg Constitutional no acute distress Routine Respiratory Exam Present CTA bilaterally Routine Cardiovascular Exam Present RRR Routine Abdominal Exam Present soft Routine Extremities Exam Comments: no pedal edema. Routine Neurological Exam Present alert and oriented X3 Results Labs CBC & Chem 7: 07/13/18 07:02 07/13/18 07:02 Imaging Imaging: Impressions Barium Swallow X-Ray 07/12/18 00:00 CONCLUSION: No evidence of penetration of the supraglottic larynx or tracheal aspiration with multiple swallows of thin barium. 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 Jones s/p lumbar puncture 07/08. CT spine MRI, thoracic spine MRI unremarkable Continue PT and OT RF negative, ALAN negative, Lyme not detected Tori bar virus showed positive for antigen and IgG but negative for IgM therefore shows no recent infection or active infection. neurology f/u appreciated; plasmapheresis per neurology- s/p vas cath placement 07/11 Hematology following. History of pituitary dysfunction. Adrenal insufficiency. Status post hypoglycemic episode. On hydrocortisone 50 mg IV every q12 hrs- will change to daily. previoulsy d/w his mate chief @ [phone]; plan for tapering down the IV Solucortef and then switch to oral Hydrocortisone @ 20 mg tid till outpatient f/u. Hypokalemiawill replace. Hypernatremianow resolved . Acute renal failure, Rhabdonow resolved Renal indices improving Leukocytosis with bandemia. This has now resolved. Final blood cultures showed no growth, Wound cx: Pantoea, MRSA, Tamika. off antibiotics. Seizure disorder. Continue Keppra and gabapentin. Ativan 1 mg IV every 4hours p.r.n. for seizures. Appreciate input from neurology EEG noted and reviewed with no focal abnormality is noted and no seizure activity is seen. Head MRI unremarkable Left basilar airspace disease. Continue with oxygen and maintain sats >92%. Bronchodilators. CXR: Minimal left basilar airspace disease Pacemaker secondary to bradycardia. [employer] to reset pacemaker prior to MRI. History of Boerhaave syndrome with spit fistula esophagectomy. Previous J-tube placement. Elevated liver enzymes. Hep C Hepatitis profile: + Hep C Ig ab US abdomen: Hepatosplenomegaly On Protonix 40 mg p.o. 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 At this time we will continue tube feeds. GI prophylaxis- Protonix 40 mg daily DVT prophylaxis- SCD. Progress Note: Quality VTE Deep Vein Thrombosis/Pulmonary Embolism Present on Admission: No _ (1) Acute renal failure Qualifiers: Acute renal failure type: (2) Rhabdomyolysis Qualifiers: Rhabdomyolysis type: Encounter type:
[2018-07-13] MEDS ORDERED: Sodium Chlor 0.9% Inj 250 ML IV.SIG SCH (11:00)
--- NOTE | 2018-07-13 12:54 | P.PNONC ---
Subjective Interval history: Pt lying in bed talking on the telephone. Requests I speak to his mother via telephone. She was updated and her questions were answered. S/p plasma exchange yesterday, reports feeling no change. Objective Vital Signs/Intake & Output: Vital Signs 07/12/18 16:00 07/12/18 20:00 07/13/18 00:00 Temperature 97.6 F 97.9 F Pulse Rate 71 84 85 Respiratory Rate 18 18 Blood Pressure 151/84 H 142/76 H Pulse Oximetry 100 99 07/13/18 04:00 07/13/18 04:14 07/13/18 08:00 Temperature 97.9 F 98.1 F Pulse Rate 83 67 82 Respiratory Rate 18 16 18 Blood Pressure 132/78 144/76 H Pulse Oximetry 100 100 Intake & Output 07/12/18 07/13/18 07/13/18 18:59 06:59 18:59 Intake Total 6201 / 6201 1000 / 1000 281 / 281 Output Total 1250 / 1250 2525 / 2525 Balance 4951 / 4951 -1525 / -1525 281 / 281 Weight 90 kg Intake: IV 4521 / 4521 1000 / 1000 281 / 281 D5W/1/2 NS Inj 1,000 ML @ 75 281 / 281 1000 / 1000 281 / 281 mls/hr IV.CONT .[id number] [facility] Rx# :[id number] [place] 5% Inj 4,000 ML @ 250 4000 / 4000 mls/hr IV.SIG ONCE ONE Rx#: [id number] Calcium Gluconate Inj 4 GM In 240 / 240 NS Inj 200 ML @ 60 mls/hr IV. SIG ONCE ONE Rx#:[id number] Oral 1680 / 1680 0 / 0 Output: Urine 1250 / 1250 2525 / 2525 Other: Date of Last Bowel Movement 07/10/18 # Bowel Movements 0 0 Result Diagrams: 07/13/18 07:02 07/13/18 07:02 Laboratory Results: Laboratory Results - last 24 hr 07/12/18 07/12/18 07/12/18 13:41 16:06 19:37 WBC RBC Hgb Hct MCV MCH MCHC RDW Plt Count MPV Neut % (Auto) Lymph % (Auto) Finney % (Auto) Eos % (Auto) Baso % (Auto) Neut # (Auto) Lymph # (Auto) Finney # (Auto) Eos # (Auto) Baso # (Auto) WBC Differential Differential Comment PT INR APTT Fibrinogen Sodium Potassium Chloride Carbon Dioxide Anion Gap BUN Creatinine Estimated GFR POC Glucose 130 H 140 H 95 Random Glucose Calcium Total Bilirubin AST ALT Alkaline Phosphatase Total Protein Albumin Blood Type Blood Type Recheck Blood Bank Comment 07/13/18 07/13/18 07/13/18 01:50 04:47 07:01 WBC RBC Hgb Hct MCV MCH MCHC RDW Plt Count MPV Neut % (Auto) Lymph % (Auto) Finney % (Auto) Eos % (Auto) Baso % (Auto) Neut # (Auto) Lymph # (Auto) Finney # (Auto) Eos # (Auto) Baso # (Auto) WBC Differential Differential Comment PT 12.6 H INR 1.2 APTT 29.1 Fibrinogen 86 L* Sodium Potassium Chloride Carbon Dioxide Anion Gap BUN Creatinine Estimated GFR POC Glucose 94 88 Random Glucose Calcium Total Bilirubin AST ALT Alkaline Phosphatase Total Protein Albumin Blood Type Blood Type Recheck Blood Bank Comment 07/13/18 07/13/18 07/13/18 07:02 07:02 07:22 WBC 4.6 RBC 3.15 L Hgb 10.9 L Hct 30.3 L MCV 96.4 MCH 34.5 H MCHC 35.8 RDW 17.0 Plt Count 131 L MPV 8.4 Neut % (Auto) 67.4 Lymph % (Auto) 19.6 Finney % (Auto) 11.7 H Eos % (Auto) 1.0 Baso % (Auto) 0.3 Neut # (Auto) 3.1 Lymph # (Auto) 0.9 L Finney # (Auto) 0.5 Eos # (Auto) 0.0 Baso # (Auto) 0.0 WBC Differential . Differential Comment Auto diff final PT INR APTT Fibrinogen Sodium 145 Potassium 3.4 L Chloride 108 H Carbon Dioxide 31.5 Anion Gap 6 BUN 13 Creatinine 0.53 L Estimated GFR Greater than 89 POC Glucose 89 Random Glucose 81 Calcium 7.9 L Total Bilirubin 0.9 AST 25 ALT 45 Alkaline Phosphatase 43 L Total Protein 4.7 L Albumin 3.2 L Blood Type Blood Type Recheck Blood Bank Comment 07/13/18 07/13/18 11:02 11:16 WBC RBC Hgb Hct MCV MCH MCHC RDW Plt Count MPV Neut % (Auto) Lymph % (Auto) Finney % (Auto) Eos % (Auto) Baso % (Auto) Neut # (Auto) Lymph # (Auto) Finney # (Auto) Eos # (Auto) Baso # (Auto) WBC Differential Differential Comment PT INR APTT Fibrinogen Sodium Potassium Chloride Carbon Dioxide Anion Gap BUN Creatinine Estimated GFR POC Glucose 72 Random Glucose Calcium Total Bilirubin AST ALT Alkaline Phosphatase Total Protein Albumin Blood Type O Positive Blood Type Recheck Not needed Blood Bank Comment Culture Results: Microbiology 07/08/18 09:06 Gram Stain - Final Lumbar Puncture CSF Culture - Final No growth in 72 hours Imaging Studies: Impressions Barium Swallow X-Ray 07/12/18 00:00 CONCLUSION: No evidence of penetration of the supraglottic larynx or tracheal aspiration with multiple swallows of thin barium. Medications: Active Medications Generic Name Dose Route Start Last Admin Trade Name Freq PRN Reason Stop Dose Admin Al Hydroxide/Mg Hydroxide 30 ml 06/30/18 11:38 07/07/18 15:45 Milk Of Magnesia Liq PO 30 ml Q12H PRN Administration Mild Constipation Albuterol 1 ampul 06/30/18 11:38 07/13/18 04:13 Duoneb Neb (Prn) NEB 1 ampul Q2HR NEB PRN Administration WHEEZING Dextrose 50 ml 06/30/18 11:44 07/09/18 23:19 D50w Vial IV.PUSH 50 ml UNSCH PRN Administration PER HYPOGLYCEMIA PROTOCOL Diphenhydramine HCl 25 mg 07/12/18 13:00 07/12/18 15:11 Benadryl Inj IV.PUSH 07/20/18 23:00 25 mg UNSCH PRN Administration ALLERGIC REACTION Fentanyl 1 patch 07/03/18 13:15 07/12/18 13:39 Duragesic 25 Mcg Patch.72hr T-DERMAL 1 patch Q72H ISIAH Administration Gabapentin 400 mg 07/11/18 22:00 07/13/18 12:17 Neurontin PO 400 mg TID ISIAH Administration Heparin Sodium (Porcine) 1,000 units 07/12/18 13:02 07/12/18 15:12 Heparin Inj IV.FLUSH 07/20/18 23:00 1,000 units UNSCH PRN Administration FLUSH AFTER USING IV ACCESS Dextrose/Sodium Chloride 1,000 mls @ 75 mls/hr 07/05/18 16:28 07/13/18 10:14 D5w/1/2 Ns Inj IV.CONT 75 mls/hr .[id number] ISIAH Administration Insulin Human Regular 0 units 07/01/18 16:00 07/13/18 12:17 Novolin R Correctional Sugar Inj SQ Not Given Q4HR [facility] Protocol Lactulose 30 ml 06/30/18 11:38 07/13/18 04:35 Lactulose Liq PO 30 ml DAILY PRN Administration SEVERE CONSITIPATION Levetiracetam 750 mg 07/03/18 21:00 07/13/18 10:07 Keppra PO 750 mg BID ISIAH Administration Levothyroxine Sodium 75 mcg 07/04/18 06:00 07/13/18 05:36 Synthroid PO 75 mcg DAILY@0600 ISIAH Administration Lorazepam 1 mg 07/09/18 23:04 07/13/18 11:16 Ativan Inj IV.PUSH 1 mg Q4H PRN Administration seizures/anxiety Morphine Sulfate 15 mg 07/03/18 11:38 07/13/18 12:17 Msir PO 15 mg Q4H PRN Administration PAIN SCALE 1 TO 10 Morphine Sulfate 2 mg 07/06/18 12:20 07/13/18 10:09 Morphine Inj IV.PUSH 2 mg Q4H PRN Administration BREAKTHROUGH PAIN Pantoprazole Sodium 40 mg 07/07/18 09:00 07/13/18 10:08 Protonix PO 40 mg DAILY ISIAH Administration Patch Removal 1 each 07/03/18 13:00 07/12/18 14:49 Remove Old Patch T-DERMAL Not Given Q72H ISIAH Patch Removal 1 each 07/03/18 13:00 07/12/18 14:48 Remove Old Patch T-DERMAL 1 each Q72H ISIAH Administration Quetiapine Fumarate 400 mg 07/03/18 21:00 07/03/18 21:19 Seroquel PO Not Given BID ISIAH Quetiapine Fumarate 150 mg 07/11/18 22:00 07/12/18 20:30 Seroquel PO 150 mg HS ISIAH Administration Sodium Chloride 2 ml 06/30/18 09:58 07/10/18 21:24 Ns Flush IV.FLUSH 2 ml PRN PRN Administration FLUSH AFTER USING IV ACCESS Sodium Citrate 1,000 ml 07/12/18 12:45 07/12/18 15:09 Acd-A Solution EXTRACORPO 07/20/18 13:00 1,000 ml Q48H ISIAH Administration Whey 1 packet 07/10/18 21:00 07/13/18 10:09 Beneprotein Powder G-TUBE Not Given BID ISIAH Objective Remarks: GENERAL: Ill-appearing young male patient, in no acute distress. SKIN: Warm and dry. HEAD: Normocephalic. EYES: No scleral icterus. No injection or drainage. NECK: Supple, trachea midline. Vas-cath to right neck, drsg dry/intact. Drain to left neck, draining clear, frothy pink tinged. CARDIOVASCULAR: Regular rate and rhythm without murmurs. RESPIRATORY: Posterior Breath sounds distant equal bilaterally. No accessory muscle use. Scar to left posterior. GASTROINTESTINAL: Abdomen non-tender, nondistended. peg tube with TF. EXTREMITIES: No cyanosis, 1+ pitting edema to mid-calf BLE. MUSCULOSKELETAL: Adequate muscle tone. NEUROLOGICAL: No obvious focal deficit. Awake, alert, and oriented x3. PSYCHIATRIC: Appropriate mood and affect; insight and judgment normal. 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 Plasma phoresis EOD x's 5 treatments. Pt tolerated 1st treatment well. Fibrinogen 86, will transfuse cryo today and plan for tx #2 tomorrow. 2. Monitor daily CBC, CMP, coags. - Attending Statement The exam, history, and the medical decision-making described in the above note were completed with the assistance of the mid-level provider. I reviewed and agree with the findings presented. I attest that I had a [id number] encounter with the patient on the same day, and personally performed and documented my assessment and findings in the medical record. Resting comfortably in bed in no distress. Receiving infusion of cryo today. Plan for plasmapheresis #2 tomorrow.
[2018-07-13] MEDS: QUEtiapine 100 MG Tablet PO SCH (21:39)
[2018-07-14] MEDS: Dextrose 5%/NaCl 0.45% Inj 1,000 ML IV.CONT SCH ×2 (01:28→13:43)
[2018-07-14] MEDS: Morphine Sulfate 15 MG IR Tablet PO PRN ×5 (02:13→21:04)
[2018-07-14] MEDS: Morphine Sulfate Inj 2 MG/ML Vial IV.PUSH PRN ×5 (04:30→23:54)
[2018-07-14] MEDS: Insulin NovoLIN Regular Correctional Sugar Inj SQ SCH ×5 (04:30→21:12)
[2018-07-14] MEDS: Levothyroxine 75 MCG Tablet PO SCH (06:24)
[2018-07-14] MEDS: Beneprotein Powder Packet G-TUBE SCH ×2 (08:52→21:05)
[2018-07-14] MEDS: Hydrocortisone Sod Succinate 100 MG Vial IV.PUSH SCH (08:53)
[2018-07-14] MEDS: levETIRAcetam 250 MG Tablet PO SCH ×2 (08:53→21:05)
[2018-07-14] MEDS: Gabapentin 400 MG Capsule PO SCH ×3 (08:54→17:11)
--- NOTE | 2018-07-14 09:37 | P.PNONC ---
Subjective Interval history: Patient awake, sitting in bed moving around. He is pending treatment #2 plasmapheresis today. He was able to pivot on his left foot to use the bedside commode. He believes this plan improvement. Remains with leg pain. Objective Vital Signs/Intake & Output: Vital Signs 07/13/18 12:00 07/13/18 15:29 07/13/18 15:48 Temperature 97.9 F 97.9 F 98.2 F Pulse Rate 77 74 78 Respiratory Rate 18 18 Blood Pressure 150/85 H 150/88 H 156/88 H Pulse Oximetry 100 100 99 07/13/18 16:00 07/13/18 17:15 07/13/18 20:00 Temperature 98 F 98 F 98 F Pulse Rate 78 72 82 Respiratory Rate 18 Blood Pressure 140/80 140/80 160/73 H Pulse Oximetry 100 100 98 07/14/18 00:00 07/14/18 04:00 07/14/18 08:00 Temperature 97.6 F 98.1 F Pulse Rate 76 86 85 Respiratory Rate 17 18 17 Blood Pressure 146/76 H 140/78 163/79 H Pulse Oximetry 100 98 100 Intake & Output 07/13/18 07/14/18 07/14/18 18:59 06:59 18:59 Intake Total 1281 / 1281 901 / 901 Output Total 650 / 650 3000 / 3000 Balance 631 / 631 -2099 / -2099 Weight 87 kg Intake: IV 281 / 281 281 / 281 D5W/1/2 NS Inj 1,000 ML @ 75 281 / 281 281 / 281 mls/hr IV.CONT .[id number] ON LICENSE OF [facility] Rx# :[id number] Oral 1000 / 1000 620 / 620 Intake (Blood Product) Amt 0 / 0 Pre-Pooled Cryo Thawed 10units 0 / 0 Unit [id number] Output: Urine 650 / 650 3000 / 3000 Other: # Voids 4 Date of Last Bowel Movement 07/13/18 07/13/18 Result Diagrams: 07/14/18 12:31 07/14/18 08:35 Laboratory Results: Laboratory Results - last 24 hr 07/13/18 07/13/18 07/13/18 11:02 11:16 17:16 POC Glucose 72 98 Blood Type O Positive Blood Type Recheck Not needed Blood Bank Comment 1207/13/18 07/14/18 19:52 23:18 04:30 POC Glucose 89 129 H 83 Blood Type Blood Type Recheck Blood Bank Comment 07/14/18 08:51 POC Glucose 77 Blood Type Blood Type Recheck Blood Bank Comment Culture Results: Microbiology 07/08/18 09:06 Gram Stain - Final Lumbar Puncture CSF Culture - Final No growth in 72 hours Medications: Active Medications Generic Name Dose Route Start Last Admin Trade Name Freq PRN Reason Stop Dose Admin Al Hydroxide/Mg Hydroxide 30 ml 06/30/18 11:38 07/07/18 15:45 Milk Of Magnesia Liq PO 30 ml Q12H PRN Administration Mild Constipation Albuterol 1 ampul 06/30/18 11:38 07/13/18 04:13 Duoneb Neb (Prn) NEB 1 ampul Q2HR NEB PRN Administration WHEEZING Dextrose 50 ml 06/30/18 11:44 07/09/18 23:19 D50w Vial IV.PUSH 50 ml UNSCH PRN Administration PER HYPOGLYCEMIA PROTOCOL Diphenhydramine HCl 25 mg 07/12/18 13:00 07/12/18 15:11 Benadryl Inj IV.PUSH 07/20/18 23:00 25 mg UNSCH PRN Administration ALLERGIC REACTION Fentanyl 1 patch 07/03/18 13:15 07/12/18 13:39 Duragesic 25 Mcg Patch.72hr T-DERMAL 1 patch Q72H ISIAH Administration Gabapentin 400 mg 07/11/18 22:00 07/14/18 08:54 Neurontin PO 400 mg TID ISIAH Administration Heparin Sodium (Porcine) 1,000 units 07/12/18 13:02 07/12/18 15:12 Heparin Inj IV.FLUSH 07/20/18 23:00 1,000 units UNSCH PRN Administration FLUSH AFTER USING IV ACCESS Hydrocortisone Sodium Succinate 50 mg 07/14/18 09:00 07/14/18 08:53 Solucortef Inj IV.PUSH 50 mg DAILY ISIAH Administration Dextrose/Sodium Chloride 1,000 mls @ 75 mls/hr 07/05/18 16:28 07/14/18 01:28 D5w/1/2 Ns Inj IV.CONT Not Given .[id number] ISIAH Insulin Human Regular 0 units 07/01/18 16:00 07/14/18 08:52 Novolin R Correctional Sugar Inj SQ Not Given Q4HR ON LICENSE OF [facility] Protocol Lactulose 30 ml 06/30/18 11:38 07/13/18 04:35 Lactulose Liq PO 30 ml DAILY PRN Administration SEVERE CONSITIPATION Levetiracetam 750 mg 07/03/18 21:00 07/14/18 08:53 Keppra PO 750 mg BID ISIAH Administration Levothyroxine Sodium 75 mcg 07/04/18 06:00 07/14/18 06:24 Synthroid PO 75 mcg DAILY@0600 ISIAH Administration Lorazepam 1 mg 07/09/18 23:04 07/14/18 02:16 Ativan Inj IV.PUSH 1 mg Q4H PRN Administration seizures/anxiety Morphine Sulfate 15 mg 07/03/18 11:38 07/14/18 06:24 Msir PO 15 mg Q4H PRN Administration PAIN SCALE 1 TO 10 Morphine Sulfate 2 mg 07/06/18 12:20 07/14/18 08:54 Morphine Inj IV.PUSH 2 mg Q4H PRN Administration BREAKTHROUGH PAIN Pantoprazole Sodium 40 mg 07/07/18 09:00 07/14/18 08:54 Protonix PO 40 mg DAILY ISIAH Administration Patch Removal 1 each 07/03/18 13:00 07/12/18 14:49 Remove Old Patch T-DERMAL Not Given Q72H ISIAH Patch Removal 1 each 07/03/18 13:00 07/12/18 14:48 Remove Old Patch T-DERMAL 1 each Q72H ISIAH Administration Quetiapine Fumarate 400 mg 07/03/18 21:00 07/03/18 21:19 Seroquel PO Not Given BID ISIAH Quetiapine Fumarate 150 mg 07/11/18 22:00 07/13/18 21:39 Seroquel PO 150 mg HS ISIAH Administration Sodium Chloride 2 ml 06/30/18 09:58 07/10/18 21:24 Ns Flush IV.FLUSH 2 ml PRN PRN Administration FLUSH AFTER USING IV ACCESS Sodium Citrate 1,000 ml 07/12/18 12:45 07/12/18 15:09 Acd-A Solution EXTRACORPO 07/20/18 13:00 1,000 ml Q48H ISIAH Administration Tizanidine HCl 4 mg 07/13/18 12:15 07/14/18 06:24 Zanaflex PO 4 mg Q8H PRN Administration MUSCLE SPASM Whey 1 packet 12/19/18 21:00 07/14/18 08:52 Beneprotein Powder G-TUBE Not Given BID ISIAH Objective Remarks: GENERAL: Chronically ill-appearing young male patient, in no acute distress. SKIN: Warm and dry. HEAD: Normocephalic. EYES: No scleral icterus. No injection or drainage. NECK: Supple, trachea midline. Vas-cath to right neck. Drain to left neck, draining clear, frothy pink tinged fluid. CARDIOVASCULAR: Regular rate and rhythm without murmurs. RESPIRATORY: Posterior Breath sounds distant equal bilaterally. Nonlabored. Scar to left posterior. GASTROINTESTINAL: Abdomen non-tender, nondistended. peg tube with TF. EXTREMITIES: No cyanosis, or edema. MUSCULOSKELETAL: Adequate muscle tone. strength decreased in RLE. LLE> RLE NEUROLOGICAL: No obvious focal deficit. Awake, alert, and oriented x3. PSYCHIATRIC: Appropriate mood and affect; insight and judgment normal. 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 Plasma phoresis EOD x's 5 treatments. Pt tolerated 1st treatment well. Status post cryoprecipitate transfusion yesterday. Pending fibrinogen level today. Plan for treatment #2 today. 2. Monitor daily CBC, CMP, coags. Daily labs pending today. - Attending Statement The exam, history, and the medical decision-making described in the above note were completed with the assistance of the mid-level provider. I reviewed and agree with the findings presented. I attest that I had a [id number] encounter with the patient on the same day, and personally performed and documented my assessment and findings in the medical record. 32 yoM with GBS. Due for second cycle of plasmapheresis today. [facility] hematology service will continue to follow.
[2018-07-14 09:57] LABS: Glomerular Filtration Rate Greater Than 89 mL/min (>89)
--- NOTE | 2018-07-14 10:32 | P.PNIM ---
Subjective Interval history: in no acute distress. he says now he can move his right toes. has some swelling of the legs. otherwise no other new complaints. d/w the RN. Physical Exam Vital signs: Last Vital Signs Temp 98.1 F 07/14/18 04:00 Pulse 85 07/14/18 08:00 Resp 17 07/14/18 08:00 BP 163/79 H 07/14/18 08:00 Pulse Ox 100 07/14/18 08:00 Intake & Output 07/12/18 07/13/18 07/14/18 07/15/18 06:59 06:59 06:59 06:59 Intake Total 1087.0 / 1087.0 7201 / 7201 2182 / 2182 Output Total 1600 / 1600 3775 / 3775 3650 / 3650 Balance -513.0 / -513.0 3426 / 3426 -1468 / -1468 Weight 90.6 kg 90 kg 87 kg Constitutional no acute distress Routine Respiratory Exam Present CTA bilaterally Routine Cardiovascular Exam Present RRR Routine Abdominal Exam Present soft and wound Comments: mild erythema noted around the feeding tube. Routine Extremities Exam Comments: mild pedal edema bilaterally. 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 Jones s/p lumbar puncture 07/08. CT spine MRI, thoracic spine MRI unremarkable Continue PT and OT RF negative, ALAN negative, Lyme not detected Tori bar virus showed positive for antigen and IgG but negative for IgM therefore shows no recent infection or active infection. neurology f/u appreciated; plasmapheresis initiated per neurology- s/p vas cath placement 07/11 Hematology following. History of pituitary dysfunction. Adrenal insufficiency. Status post hypoglycemic episode. On hydrocortisone 50 mg daily- will stop tomorrow and change to oral Hydrocortisone. 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 Hypokalemiawill replace. Hypernatremianow resolved . Acute renal failure, Rhabdonow resolved Renal indices improving Leukocytosis with bandemia. This has now resolved. Final blood cultures showed no growth, Wound cx: Pantoea, MRSA, Tamika. off antibiotics. Seizure disorder. Continue Keppra and gabapentin. Ativan 1 mg IV every 4hours p.r.n. for seizures. Appreciate input from neurology EEG noted and reviewed with no focal abnormality is noted and no seizure activity is seen. Head MRI unremarkable Left basilar airspace disease. Continue with oxygen and maintain sats >92%. Bronchodilators. CXR: Minimal left basilar airspace disease Pacemaker secondary to bradycardia. Sequenomtronic to reset pacemaker prior to MRI. History of Boerhaave syndrome with spit fistula esophagectomy. ( Surgeon; Dr. Rudi Medina [phone]/ Soniya BREAUX [phone]). Previous J-tube placement. Elevated liver enzymes. Hep C Hepatitis profile: + Hep C Ig ab US abdomen: Hepatosplenomegaly On Protonix 40 mg p.o. 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 At this time we will continue tube feeds. GI prophylaxis- Protonix 40 mg daily DVT prophylaxis- SCD. Progress Note: Quality VTE Deep Vein Thrombosis/Pulmonary Embolism Present on Admission: No
[2018-07-14] MEDS: Furosemide 20 MG Tablet PO SCH (10:40)
[2018-07-14] MEDS ORDERED: SODIUM CHLOR 0.9% IV.SIG SCH (13:00)
[2018-07-14] MEDS ORDERED: CALCIUM GLUCONATE IV.SIG SCH (13:00)
[2018-07-14 13:45] LABS: Hemoglobin 11.1 gm/dL (13.0-17.0); Mean Corpuscular HGB Conc 35.7 % (32.0-36.0); Mean Corpuscular Hemoglobin 34.6 pg (27.0-34.0); Mean Corpuscular Volume 96.9 fL (80.0-100.0); Mean Platelet Volume 8.7 fL (7.0-11.0); Platelet Count 113 th/mm3 (150-450); Red Cell Distribution Width 17.7 % (11.6-17.2); White Blood Count 4.6 th/mm3 (4.0-11.0)
[2018-07-14] MEDS ORDERED: ALBUMIN HUMAN 5% IV.SIG ONE (16:00)
[2018-07-14] MEDS ORDERED: CALCIUM GLUCONATE IV.SIG ONE (16:00)
[2018-07-14] MEDS ORDERED: SODIUM CHLOR 0.9% IV.SIG ONE (16:00)
[2018-07-14] MEDS: Anticoagulant Citrate Dextrose 1,000 ML Solution EXTRACORPO SCH (17:40)
[2018-07-14] MEDS: QUEtiapine 100 MG Tablet PO SCH (21:04)
[2018-07-14] MEDS: Dextrose 50% in Water 50 ML Vial IV.PUSH PRN (21:14)
[2018-07-15] MEDS: Insulin NovoLIN Regular Correctional Sugar Inj SQ SCH ×6 (01:47→20:29)
[2018-07-15] MEDS: Morphine Sulfate 15 MG IR Tablet PO PRN ×6 (01:47→22:38)
[2018-07-15] MEDS: Morphine Sulfate Inj 2 MG/ML Vial IV.PUSH PRN ×3 (03:36→12:14)
[2018-07-15] MEDS: Dextrose 5%/NaCl 0.45% Inj 1,000 ML IV.CONT SCH ×2 (04:41→18:18)
[2018-07-15] MEDS: Levothyroxine 75 MCG Tablet PO SCH (05:51)
[2018-07-15] MEDS: Gabapentin 400 MG Capsule PO SCH ×3 (08:09→18:19)
[2018-07-15] MEDS: levETIRAcetam 250 MG Tablet PO SCH ×2 (08:09→20:30)
[2018-07-15] MEDS: Furosemide 20 MG Tablet PO SCH (08:09)
[2018-07-15] MEDS: Beneprotein Powder Packet G-TUBE SCH ×2 (08:09→20:30)
[2018-07-15] MEDS: Hydrocortisone Sod Succinate 100 MG Vial IV.PUSH SCH (08:10)
[2018-07-15 08:31] LABS: Eos # (Auto) 0.1 th/mm3 (0.0-0.4); Eos % (Auto) 1.6 % (0.0-4.0); Hematocrit 26.6 % (39.0-51.0); Hemoglobin 9.4 gm/dL (13.0-17.0); Lymph % (Auto) 25.1 % (9.0-44.0); Mean Corpuscular HGB Conc 35.2 % (32.0-36.0); Mean Corpuscular Hemoglobin 33.9 pg (27.0-34.0); Mean Corpuscular Volume 96.3 fL (80.0-100.0); Mean Platelet Volume 8.6 fL (7.0-11.0); Mono # (Auto) 0.4 th/mm3 (0.0-0.9); Mono % (Auto) 8.9 % (0.0-8.0); Neut # (Auto) 2.6 th/mm3 (1.8-7.7); Neut % (Auto) 63.4 % (16.0-70.0); Platelet Count 95 th/mm3 (150-450); Red Blood Count 2.76 mil/mm3 (4.50-5.90); Red Cell Distribution Width 17.3 % (11.6-17.2); White Blood Count 4.1 th/mm3 (4.0-11.0)
[2018-07-15 08:45] LABS: Activated Partial Thrombo Time 39.2 sec (23.4-31.7)
[2018-07-15 08:54] LABS: Albumin 3.6 g/dL (3.4-5.0); Anion Gap 8 meq/L (5-15); Aspartate Aminotransferase 21 U/L (15-37); Blood Urea Nitrogen 9 mg/dL (7-18); Calcium 7.9 mg/dL (8.5-10.1); Carbon Dioxide 29.4 meq/L (21.0-32.0); Chloride 107 meq/L (98-107); Glomerular Filtration Rate Greater Than 89 mL/min (>89); Glucose,Random 66 mg/dL (74-106); Sodium 144 meq/L (136-145)
[2018-07-15 08:55] LABS: Alanine Aminotransferase 34 U/L (12-78)
[2018-07-15 08:57] LABS: Alkaline Phosphatase 29 U/L (45-117); Total Protein 4.5 g/dL (6.4-8.2)
--- NOTE | 2018-07-15 09:32 | P.PNIM ---
Subjective Interval history: in no acute distress. has slight improvement of the right lower extremity weakness. no other new complaints. d/w the RN at the bedside. Physical Exam Vital signs: Last Vital Signs Temp 97.7 F 07/15/18 08:00 Pulse 94 H 07/15/18 08:00 Resp 18 07/15/18 08:00 BP 142/88 H 07/15/18 08:00 Pulse Ox 100 07/15/18 08:00 Intake & Output 07/13/18 07/14/18 07/15/18 07/16/18 06:59 06:59 06:59 06:59 Intake Total 7201 / 7201 2182 / 2182 3870 / 3870 Output Total 3775 / 3775 3650 / 3650 6950 / 6950 Balance 3426 / 3426 -1468 / -1468 -3080 / -3080 Weight 90 kg 87 kg 87.9 kg Constitutional no acute distress Routine Respiratory Exam Present CTA bilaterally Routine Cardiovascular Exam Present RRR Routine Abdominal Exam Present soft Routine Extremities Exam Comments: no pedal edema. 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 Jones s/p lumbar puncture 07/08. CT spine MRI, thoracic spine MRI unremarkable Continue PT and OT RF negative, ALAN negative, Lyme not detected Tori bar virus showed positive for antigen and IgG but negative for IgM therefore shows no recent infection or active infection. neurology f/u appreciated; plasmapheresis initiated per neurology- s/p vas cath placement 07/11 Hematology following. History of pituitary dysfunction. Adrenal insufficiency. Status post hypoglycemic episode. On hydrocortisone 50 mg daily- will stop today and change to oral Hydrocortisone. 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 Hypokalemiawill replace. Hypernatremianow resolved . Acute renal failure, Rhabdonow resolved Renal indices improving Leukocytosis with bandemia. This has now resolved. Final blood cultures showed no growth, Wound cx: Pantoea, MRSA, Tamika. off antibiotics. Seizure disorder. Continue Keppra and gabapentin. Ativan 1 mg IV every 4hours p.r.n. for seizures. Appreciate input from neurology EEG noted and reviewed with no focal abnormality is noted and no seizure activity is seen. Head MRI unremarkable Left basilar airspace disease. Continue with oxygen and maintain sats >92%. Bronchodilators. CXR: Minimal left basilar airspace disease Pacemaker secondary to bradycardia. Metaplacetronic to reset pacemaker prior to MRI. History of Boerhaave syndrome with spit fistula esophagectomy. ( Surgeon; Dr. Rudi Medina [phone]/ Soniya BREAUX [phone]). Previous J-tube placement. Elevated liver enzymes. Hep C Hepatitis profile: + Hep C Ig ab US abdomen: Hepatosplenomegaly On Protonix 40 mg p.o. 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 spoke with his surgeon's [employer] today; recommended NPO and to continue with tube feeds. GI prophylaxis- Protonix 40 mg daily DVT prophylaxis- SCD. Progress Note: Quality VTE Deep Vein Thrombosis/Pulmonary Embolism Present on Admission: No
--- NOTE | 2018-07-15 09:49 | P.PNONC ---
Subjective Interval history: Patient sitting up in bed, family is at the bedside. He has no complaints at this time. Tolerated treatment #2 of plasmapheresis yesterday. Objective Vital Signs/Intake & Output: Vital Signs 07/14/18 12:00 07/14/18 16:00 07/14/18 20:00 Temperature 98.4 F 98 F Pulse Rate 88 75 70 Respiratory Rate 20 16 Blood Pressure 147/94 H 142/82 H Pulse Oximetry 100 100 07/15/18 00:00 07/15/18 04:00 07/15/18 08:00 Temperature 97.8 F 98.9 F 97.7 F Pulse Rate 93 H 98 H 94 H Respiratory Rate 15 18 18 Blood Pressure 144/90 H 155/89 H 142/88 H Pulse Oximetry 97 100 100 Intake & Output 07/14/18 07/15/18 07/15/18 18:59 06:59 18:59 Intake Total 2450 / 2450 1420 / 1420 Output Total 2000 / 1999 4950 / 4950 Balance 450 / 450 -3530 / -3530 Weight 87.9 kg Intake: IV 1250 / 1250 1000 / 1000 D5W/1/2 NS Inj 1,000 ML @ 75 1000 / 1000 1000 / 1000 mls/hr IV.CONT .[id number] [facility] Rx# :[id number] Oral 1200 / 1200 420 / 420 Output: Urine 2000 / 2000 950 / 950 Plasma Exchange Amount 4000 / 4000 Other: Date of Last Bowel Movement 07/13/18 07/13/18 Result Diagrams: 07/16/18 04:40 07/16/18 04:40 Laboratory Results: Laboratory Results - last 24 hr 07/14/18 07/14/18 07/14/18 08:35 12:03 12:31 WBC 4.6 RBC 3.20 L Hgb 11.1 L Hct 31.0 L MCV 96.9 MCH 34.6 H MCHC 35.7 RDW 17.7 H Plt Count 113 L MPV 8.7 Prelim Diff (Auto) Neut % (Auto) Lymph % (Auto) [place] % (Auto) Eos % (Auto) Baso % (Auto) Neut # (Auto) Lymph # (Auto) [place] # (Auto) Eos # (Auto) Baso # (Auto) Differential Comment APTT Fibrinogen Sodium Potassium Chloride Carbon Dioxide Anion Gap BUN Creatinine 0.53 L Estimated GFR Greater than 89 POC Glucose 103 Random Glucose Calcium Total Bilirubin AST ALT Alkaline Phosphatase Total Protein Albumin 07/14/18 07/14/18 07/14/18 12:31 17:10 21:11 WBC RBC Hgb Hct MCV MCH MCHC RDW Plt Count MPV Prelim Diff (Auto) Neut % (Auto) Lymph % (Auto) [place] % (Auto) Eos % (Auto) Baso % (Auto) Neut # (Auto) Lymph # (Auto) [place] # (Auto) Eos # (Auto) Baso # (Auto) Differential Comment APTT Fibrinogen 173 L Sodium Potassium Chloride Carbon Dioxide Anion Gap BUN Creatinine Estimated GFR POC Glucose 81 63 L Random Glucose Calcium Total Bilirubin AST ALT Alkaline Phosphatase Total Protein Albumin 07/14/18 07/14/18 07/15/18 21:35 23:54 03:36 WBC RBC Hgb Hct MCV MCH MCHC RDW Plt Count MPV Prelim Diff (Auto) Neut % (Auto) Lymph % (Auto) [place] % (Auto) Eos % (Auto) Baso % (Auto) Neut # (Auto) Lymph # (Auto) [place] # (Auto) Eos # (Auto) Baso # (Auto) Differential Comment APTT Fibrinogen Sodium Potassium Chloride Carbon Dioxide Anion Gap BUN Creatinine Estimated GFR POC Glucose 181 H 93 83 Random Glucose Calcium Total Bilirubin AST ALT Alkaline Phosphatase Total Protein Albumin 07/15/18 07/15/18 07/15/18 06:00 06:00 06:00 WBC 4.1 RBC 2.76 L Hgb 9.4 L Hct 26.6 L MCV 96.3 MCH 33.9 MCHC 35.2 RDW 17.3 H Plt Count 95 L MPV 8.6 Prelim Diff (Auto) Slide review pending Neut % (Auto) 63.4 Lymph % (Auto) 25.1 [place] % (Auto) 8.9 H Eos % (Auto) 1.6 Baso % (Auto) 1.0 Neut # (Auto) 2.6 Lymph # (Auto) 1.0 [place] # (Auto) 0.4 Eos # (Auto) 0.1 Baso # (Auto) 0.0 Differential Comment . APTT 39.2 H D Fibrinogen 91 L* Sodium 144 Potassium 3.0 L Chloride 107 Carbon Dioxide 29.4 Anion Gap 8 BUN 9 Creatinine 0.52 L Estimated GFR Greater than 89 POC Glucose Random Glucose 66 L Calcium 7.9 L Total Bilirubin 1.2 H AST 21 ALT 34 Alkaline Phosphatase 29 L Total Protein 4.5 L Albumin 3.6 07/15/18 08:07 WBC RBC Hgb Hct MCV MCH MCHC RDW Plt Count MPV Prelim Diff (Auto) Neut % (Auto) Lymph % (Auto) [place] % (Auto) Eos % (Auto) Baso % (Auto) Neut # (Auto) Lymph # (Auto) [place] # (Auto) Eos # (Auto) Baso # (Auto) Differential Comment APTT Fibrinogen Sodium Potassium Chloride Carbon Dioxide Anion Gap BUN Creatinine Estimated GFR POC Glucose 86 Random Glucose Calcium Total Bilirubin AST ALT Alkaline Phosphatase Total Protein Albumin Medications: Active Medications Generic Name Dose Route Start Last Admin Trade Name Freq PRN Reason Stop Dose Admin Al Hydroxide/Mg Hydroxide 30 ml 06/30/18 11:38 07/07/18 15:45 Milk Of Magnesia Liq PO 30 ml Q12H PRN Administration Mild Constipation Albuterol 1 ampul 06/30/18 11:38 07/13/18 04:13 Duoneb Neb (Prn) NEB 1 ampul Q2HR NEB PRN Administration WHEEZING Dextrose 50 ml 06/30/18 11:44 07/14/18 21:14 D50w Vial IV.PUSH 50 ml UNSCH PRN Administration PER HYPOGLYCEMIA PROTOCOL Diphenhydramine HCl 25 mg 07/12/18 13:00 07/12/18 15:11 Benadryl Inj IV.PUSH 07/20/18 23:00 25 mg UNSCH PRN Administration ALLERGIC REACTION Fentanyl 1 patch 07/03/18 13:15 07/12/18 13:39 Duragesic 25 Mcg Patch.72hr T-DERMAL 1 patch Q72H ISIAH Administration Furosemide 20 mg 07/14/18 10:45 07/15/18 08:09 Lasix PO 07/15/18 15:00 20 mg DAILY ISIAH Administration Gabapentin 400 mg 07/11/18 22:00 07/15/18 08:09 Neurontin PO 400 mg TID ISIAH Administration Heparin Sodium (Porcine) 1,000 units 07/12/18 13:02 07/12/18 15:12 Heparin Inj IV.FLUSH 07/20/18 23:00 1,000 units UNSCH PRN Administration FLUSH AFTER USING IV ACCESS Dextrose/Sodium Chloride 1,000 mls @ 75 mls/hr 07/05/18 16:28 07/15/18 04:41 D5w/1/2 Ns Inj IV.CONT 75 mls/hr .[id number] ISIAH Administration Insulin Human Regular 0 units 07/01/18 16:00 07/15/18 08:11 Novolin R Correctional Sugar Inj SQ Not Given Q4HR [facility] Protocol Lactulose 30 ml 06/30/18 11:38 07/13/18 04:35 Lactulose Liq PO 30 ml DAILY PRN Administration SEVERE CONSITIPATION Levetiracetam 750 mg 07/03/18 21:00 07/15/18 08:09 Keppra PO 750 mg BID ISIAH Administration Levothyroxine Sodium 75 mcg 07/04/18 06:00 07/15/18 05:51 Synthroid PO 75 mcg DAILY@0600 ISIAH Administration Lorazepam 1 mg 07/09/18 23:04 07/15/18 05:51 Ativan Inj IV.PUSH 1 mg Q4H PRN Administration seizures/anxiety Morphine Sulfate 15 mg 07/03/18 11:38 07/15/18 05:51 Msir PO 15 mg Q4H PRN Administration PAIN SCALE 1 TO 10 Morphine Sulfate 2 mg 07/06/18 12:20 07/15/18 08:10 Morphine Inj IV.PUSH 2 mg Q4H PRN Administration BREAKTHROUGH PAIN Pantoprazole Sodium 40 mg 07/07/18 09:00 07/15/18 08:09 Protonix PO 40 mg DAILY ISIAH Administration Patch Removal 1 each 07/03/18 13:00 07/12/18 14:49 Remove Old Patch T-DERMAL Not Given Q72H ISIAH Patch Removal 1 each 07/03/18 13:00 07/12/18 14:48 Remove Old Patch T-DERMAL 1 each Q72H [facility]IA[facility] Administration Quetiapine Fumarate 400 mg 07/03/18 21:00 07/03/18 21:19 Seroquel PO Not Given BID ISIAH Quetiapine Fumarate 150 mg 07/11/18 22:00 07/14/18 21:04 Seroquel PO 150 mg HS ISIAH Administration Sodium Chloride 2 ml 06/30/18 09:58 07/10/18 21:24 Ns Flush IV.FLUSH 2 ml PRN PRN Administration FLUSH AFTER USING IV ACCESS Sodium Citrate 1,000 ml 07/12/18 12:45 07/14/18 17:40 Acd-A Solution EXTRACORPO 07/20/18 13:00 1,000 ml Q48H ISIAH Administration Tizanidine HCl 4 mg 07/13/18 12:15 07/15/18 08:09 Zanaflex PO 4 mg Q8H PRN Administration MUSCLE SPASM Whey 1 packet 07/10/18 21:00 07/15/18 08:09 Beneprotein Powder G-TUBE Not Given BID ISIAH Objective Remarks: GENERAL: Chronically ill-appearing young male patient, in no acute distress. SKIN: Warm and dry. HEAD: Normocephalic. EYES: No scleral icterus. No injection or drainage. NECK: Supple, trachea midline. Vas-cath to right neck. Drain to left neck, draining clear fluid. CARDIOVASCULAR: Regular rate and rhythm without murmurs. RESPIRATORY: Anterior breath sounds distant equal bilaterally. Nonlabored. GASTROINTESTINAL: Abdomen non-tender, nondistended. peg tube with TF. EXTREMITIES: No cyanosis, or edema. MUSCULOSKELETAL: Adequate muscle tone. strength decreased in RLE. LLE> RLE NEUROLOGICAL: No obvious focal deficit. Awake, alert, and oriented x3. PSYCHIATRIC: Appropriate mood and affect; insight and judgment normal. 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 Plasma phoresis EOD x's 5 treatments. Pt tolerated 2nd treatment well. Fibrinogen 91 today, will transfuse cryoprecipitate. 2. Monitor daily CBC, CMP, coags. Daily labs pending today.
[2018-07-15] MEDS ORDERED: Sodium Chlor 0.9% Inj 250 ML IV.SIG SCH (10:00)
[2018-07-15 10:36] LABS: Platelet Morphology Normal (Normal)
[2018-07-15] MEDS: Potassium Chloride 25 MEQ Effervescent Tablet PO SCH ×3 (10:48→18:19)
[2018-07-15] MEDS: Morphine Inj 4 MG/ML Vial IV.PUSH PRN ×2 (16:32→20:30)
[2018-07-15] MEDS: QUEtiapine 100 MG Tablet PO SCH (20:30)
[2018-07-16] MEDS: Insulin NovoLIN Regular Correctional Sugar Inj SQ SCH ×6 (00:07→20:28)
[2018-07-16] MEDS: Morphine Inj 4 MG/ML Vial IV.PUSH PRN ×5 (00:28→20:55)
[2018-07-16] MEDS: Morphine Sulfate 15 MG IR Tablet PO PRN ×6 (02:24→22:28)
[2018-07-16] MEDS: Dextrose 5%/NaCl 0.45% Inj 1,000 ML IV.CONT SCH ×2 (05:01→21:04)
[2018-07-16 05:07] LABS: Hematocrit 25.3 % (39.0-51.0); Hemoglobin 8.8 gm/dL (13.0-17.0); Mean Corpuscular HGB Conc 34.8 % (32.0-36.0); Mean Corpuscular Hemoglobin 33.8 pg (27.0-34.0); Mean Corpuscular Volume 97.1 fL (80.0-100.0); Mean Platelet Volume 8.4 fL (7.0-11.0); Platelet Count 85 th/mm3 (150-450); Red Cell Distribution Width 17.9 % (11.6-17.2); White Blood Count 3.2 th/mm3 (4.0-11.0)
[2018-07-16 05:15] LABS: Activated Partial Thrombo Time 31.2 sec (23.4-31.7); INR 1.1 Ratio; Prothrombin Time 11.3 sec (9.8-11.6)
[2018-07-16 05:38] LABS: Alanine Aminotransferase 42 U/L (12-78); Albumin 3.2 g/dL (3.4-5.0); Anion Gap 5 meq/L (5-15); Aspartate Aminotransferase 21 U/L (15-37); Blood Urea Nitrogen 8 mg/dL (7-18); Calcium 7.7 mg/dL (8.5-10.1); Carbon Dioxide 31.8 meq/L (21.0-32.0); Chloride 106 meq/L (98-107); Glomerular Filtration Rate Greater Than 89 mL/min (>89); Glucose,Random 83 mg/dL (74-106); Potassium 3.7 meq/L (3.5-5.1); Sodium 143 meq/L (136-145)
[2018-07-16 05:40] LABS: Alkaline Phosphatase 44 U/L (45-117)
[2018-07-16] MEDS: Levothyroxine 75 MCG Tablet PO SCH (06:39)
--- NOTE | 2018-07-16 09:09 | P.PNIM ---
Subjective Interval history: Patient seen and evaluated this morning at bedside. Patient without acute event overnight. Patient has been receiving plasmapheresis and reports that although he is still weak he is able to move his right toe which is an improvement over presentation. Patient reports prior hospitalization he was ambulatory and overnight symptoms developed. Currently patient doing better Physical Exam Vital signs: Last Vital Signs Temp 98.1 F 07/16/18 04:00 Pulse 80 07/16/18 04:00 Resp 14 07/16/18 04:00 BP 134/57 L 07/16/18 04:00 Pulse Ox 100 07/16/18 04:00 Intake & Output 07/14/18 07/15/18 07/16/18 07/17/18 06:59 06:59 06:59 06:59 Intake Total 2182 / 2182 3870 / 3870 1880 / 1880 250 / 250 Output Total 3650 / 3650 6950 / 6950 1950 / 1950 Balance -1468 / -1468 -3080 / -3080 -70 / -70 250 / 250 Weight 87 kg 87.9 kg 87 kg General: No acute distress, conversational HEENT: Right pupillary dilation, EOMI Cardiovascular: S1/S2 Respiratory: Clear to auscultation Gastrointestinal: Soft, nontender, nondistended, no guarding or rebound. PEG Extremity: Muscle atrophy, 2+ radial pulse, no edema Neurology: Reduced sensation bilateral lower extremity Narrative: GENERAL: Well-nourished pleasant male in no acute distress SKIN: Warm and dry. HEAD: Atraumatic. Normocephalic. EYES: Right pupil dilated 4cm, left 2cm. No scleral icterus. No injection or drainage. ENT: No nasal bleeding or discharge. Mucous membranes pink and moist. NECK: Trachea midline. No JVD. spit fistula esophagectomy with ostomy bag in place CARDIOVASCULAR: Regular rate and rhythm. RESPIRATORY: No accessory muscle use. Clear to auscultation. Breath sounds equal bilaterally. GASTROINTESTINAL: Abdomen soft, non-tender, nondistended. PEG tube in place, normoactive bowel sounds MUSCULOSKELETAL: Extremities without clubbing, cyanosis, or edema. No obvious deformities. NEUROLOGICAL: Awake and alert to person place time situation; motor strength 3/ 5 LLE and not much movement in the right lower extremity and cannot dorsiflex. Bilateral upper extremity 5 out of 5 motor strength. Normal speech. Unchanged exam compared to yesterday. . 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 Previously discussed with patient outpatient doctor regarding transitioning to oral diet considering past history of Boerhaave syndrome and at this time it is recommended against oral feeding. Continue physical therapy. Rehab Hematology consulted and following actively Neurology input appreciated previously Status post lumbar puncture 07/08. CT MR spine And thoracic MRI also unremarkable.Check fibrinogen level, CBC, chemistry level and coagulations. Endocrinology: Adrenal insufficiency Oral hydrocortisone 20 mg 3 times daily. 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 Neurology: History seizure disorder Continue Keppra and gabapentin. PRN EEG reviewed and no focal abnormality and no seizures noted. Cardiology: Bradycardia Patient with [employer] pacer Gastroenterology: Patient with history of Boerhaave syndrome with split fistula esophagectomy. Patient outpatient surgeon recommended against oral feeding at this time - Surgeon; Dr. Rudi Medina [phone]/ Soniya BREAUX [phone]). - Previous J-tube placement. Hepatitis profile: + Hep C Ig ab US abdomen: Hepatosplenomegaly On Protonix 40 mg p.o. for GI prophylaxis Continue tube feeds via J-tube change to [place] with goal rate 70ml/hr DVT prophylaxis: SCD GI prophylaxis: Protonix 40 mg daily Progress Note: Quality VTE Deep Vein Thrombosis/Pulmonary Embolism Present on Admission: No
[2018-07-16] MEDS: Beneprotein Powder Packet G-TUBE SCH ×2 (10:10→20:30)
[2018-07-16] MEDS: Hydrocortisone 10 MG Tablet PO SCH ×3 (10:14→17:12)
[2018-07-16] MEDS: levETIRAcetam 250 MG Tablet PO SCH ×2 (10:14→20:55)
[2018-07-16] MEDS: Gabapentin 400 MG Capsule PO SCH ×3 (10:15→17:12)
[2018-07-16] MEDS: Anticoagulant Citrate Dextrose 1,000 ML Solution EXTRACORPO SCH (12:11)
[2018-07-16] MEDS ORDERED: ALBUMIN HUMAN 5% IV.SIG ONE (13:00)
[2018-07-16] MEDS ORDERED: SODIUM CHLOR 0.9% IV.SIG ONE (13:00)
[2018-07-16] MEDS ORDERED: CALCIUM GLUCONATE IV.SIG ONE (13:00)
--- NOTE | 2018-07-16 14:25 | MB ---
cc: Driss Ibrahim MD DATE: 07/16/2018 HISTORY OF PRESENT ILLNESS: Mr. Daniel is doing well, having just returned from plasmapheresis. This is his third pheresis today. He feels weak, but otherwise feels that actually his left upper extremity weakness is improved, although right lower leg weakness is slow to improve. He has no other complaints. REVIEW OF SYSTEMS: Negative for headaches, cough, chest pain or shortness of breath. No fevers, abdominal pain, distention, blood in the stools or black stools. No nosebleeds, gum bleeding or bruising of the skin. PHYSICAL EXAMINATION: GENERAL: Revealed chronic ill appearing, in no acute distress, pallor noted. No icterus. No lymphadenopathy in the neck or axilla. Alert and oriented x 4. LUNGS: Clear to auscultation. ABDOMEN: Soft, without palpable hepatosplenomegaly. EXTREMITIES: No edema. No petechiae or cyanosis. Left upper extremity weakness is resolving with 4/5 in right lower leg weakness has improved to 1/5. LABORATORY DATA: Significant for decrease in platelet count of 85,000 and hemoglobin of 8.8, white count is 3.2. PT/INR is 1.1, PTT 31.2, and fibrinogen is 193 today. IMPRESSION: Guillain-[place] syndrome, on plasmapheresis per Neurology. Status post third pheresis treatment today. With good tolerance and decreasing fibrinogen noted. Fibrinogen improved to near normal today with administration cryoprecipitate. We will continue to follow check his coagulation studies and infuse cryoprecipitate after each plasmapheresis and if he has a decrease in platelet count below 50,000, we will consider platelet transfusion also. Discussed with the patient and answered questions. We will follow up in the hospital. MD SEAN Kulkarni/koko , 01:58 PM , 02:06 PM
[2018-07-16 17:43] LABS: Immunoglobulin A 108 mg/dL (80-441); Immunoglobulin G 479 mg/dL (650-1600)
[2018-07-16 17:54] LABS: Immunoglobulin M 84 mg/dL (43-265)
[2018-07-16 18:31] LABS: Activated Partial Thrombo Time 53.4 sec (23.4-31.7); INR 1.4 Ratio; Prothrombin Time 13.8 sec (9.8-11.6)
[2018-07-16] MEDS: QUEtiapine 100 MG Tablet PO SCH (22:11)
[2018-07-17] MEDS: Morphine Inj 4 MG/ML Vial IV.PUSH PRN ×6 (00:53→22:24)
[2018-07-17] MEDS: Insulin NovoLIN Regular Correctional Sugar Inj SQ SCH ×6 (00:54→20:50)
[2018-07-17] MEDS: Morphine Sulfate 15 MG IR Tablet PO PRN ×6 (02:28→23:28)
[2018-07-17] MEDS: Dextrose 5%/NaCl 0.45% Inj 1,000 ML IV.CONT SCH ×4 (02:36→23:58)
[2018-07-17] MEDS: Levothyroxine 75 MCG Tablet PO SCH (05:02)
[2018-07-17 05:27] LABS: Hematocrit 24.5 % (39.0-51.0); Hemoglobin 8.4 gm/dL (13.0-17.0); Mean Corpuscular HGB Conc 34.3 % (32.0-36.0); Mean Corpuscular Hemoglobin 33.6 pg (27.0-34.0); Mean Corpuscular Volume 97.7 fL (80.0-100.0); Mean Platelet Volume 8.7 fL (7.0-11.0); Platelet Count 58 th/mm3 (150-450); Red Blood Count 2.51 mil/mm3 (4.50-5.90); Red Cell Distribution Width 17.1 % (11.6-17.2); White Blood Count 2.2 th/mm3 (4.0-11.0)
[2018-07-17 05:52] LABS: Activated Partial Thrombo Time 38.7 sec (23.4-31.7); INR 1.2 Ratio; Prothrombin Time 12.3 sec (9.8-11.6)
[2018-07-17 05:57] LABS: Alanine Aminotransferase 32 U/L (12-78); Albumin 3.9 g/dL (3.4-5.0); Alkaline Phosphatase 31 U/L (45-117); Anion Gap 3 meq/L (5-15); Aspartate Aminotransferase 14 U/L (15-37); Blood Urea Nitrogen 8 mg/dL (7-18); Calcium 8.2 mg/dL (8.5-10.1); Carbon Dioxide 33.9 meq/L (21.0-32.0); Chloride 106 meq/L (98-107); Glomerular Filtration Rate Greater Than 89 mL/min (>89); Glucose,Random 79 mg/dL (74-106); Potassium 3.5 meq/L (3.5-5.1); Sodium 143 meq/L (136-145); Total Protein 5.4 g/dL (6.4-8.2)
[2018-07-17] MEDS: levETIRAcetam 250 MG Tablet PO SCH ×2 (09:06→22:29)
[2018-07-17] MEDS: Gabapentin 400 MG Capsule PO SCH ×3 (09:06→17:34)
[2018-07-17] MEDS: Hydrocortisone 10 MG Tablet PO SCH ×3 (09:06→17:34)
[2018-07-17] MEDS: Beneprotein Powder Packet G-TUBE SCH ×2 (09:07→22:29)
--- NOTE | 2018-07-17 10:01 | P.PNONC ---
Subjective Interval history: Patient lying in bed, no acute distress. He has no complaints at this time. He is tolerating plasmapheresis well. He reports no change in his weakness. Objective Vital Signs/Intake & Output: Vital Signs 07/16/18 12:00 07/16/18 16:00 07/16/18 20:00 Temperature 99.0 F 97.9 F Pulse Rate 91 H 94 H 81 Respiratory Rate 18 17 Blood Pressure 151/89 H 130/86 Pulse Oximetry 98 95 07/17/18 00:00 07/17/18 04:00 07/17/18 05:05 Temperature 97.3 F L 98.5 F Pulse Rate 83 88 Respiratory Rate 17 17 6 L Blood Pressure 118/57 L 123/62 Pulse Oximetry 99 100 07/17/18 08:00 Temperature 98.2 F Pulse Rate 122 H Respiratory Rate 20 Blood Pressure 141/76 H Pulse Oximetry 99 Intake & Output 07/16/18 07/17/18 07/17/18 18:59 06:59 18:59 Intake Total 1250 / 1250 0 / 0 Output Total 6825 / 6825 Balance -5575 / -5575 0 / 0 Intake: IV 1250 / 1250 D5W/1/2 NS Inj 1,000 ML @ 75 1000 / 1000 mls/hr IV.CONT .[id number] [facility] Rx# :[id number] NS Inj 250 ML @ 15 mls/hr IV. 250 / 250 SIG ONCE [facility]IA[facility] Rx#:[id number] Oral 0 / 0 Output: Urine 2825 / 2825 Plasma Exchange Amount 4000 / 4000 Other: # Voids 2 1,475 Date of Last Bowel Movement 07/16/18 07/16/18 # Bowel Movements 1 1 Result Diagrams: 07/17/18 05:00 07/17/18 05:00 Laboratory Results: Laboratory Results - last 24 hr 07/16/18 07/16/18 07/16/18 04:40 11:58 17:03 WBC RBC Hgb Hct MCV MCH MCHC RDW Plt Count MPV PT INR APTT Fibrinogen Sodium Potassium Chloride Carbon Dioxide Anion Gap BUN Creatinine Estimated GFR POC Glucose 179 H 108 Random Glucose Calcium Total Bilirubin AST ALT Alkaline Phosphatase Total Protein Albumin IgG 479 L IgA 108 IgM 84 07/16/18 07/16/18 07/17/18 18:00 20:07 00:51 WBC RBC Hgb Hct MCV MCH MCHC RDW Plt Count MPV PT 13.8 H INR 1.4 APTT 53.4 H D Fibrinogen 101 L Sodium Potassium Chloride Carbon Dioxide Anion Gap BUN Creatinine Estimated GFR POC Glucose 99 99 Random Glucose Calcium Total Bilirubin AST ALT Alkaline Phosphatase Total Protein Albumin IgG IgA IgM 07/17/18 07/17/18 07/17/18 05:00 05:00 05:00 WBC 2.2 L RBC 2.51 L Hgb 8.4 L Hct 24.5 L MCV 97.7 MCH 33.6 MCHC 34.3 RDW 17.1 Plt Count 58 L D MPV 8.7 PT 12.3 H INR 1.2 APTT 38.7 H D Fibrinogen 126 L Sodium 143 Potassium 3.5 Chloride 106 Carbon Dioxide 33.9 H Anion Gap 3 L BUN 8 Creatinine 0.43 L Estimated GFR Greater than 89 POC Glucose Random Glucose 79 Calcium 8.2 L Total Bilirubin 0.9 AST 14 L ALT 32 Alkaline Phosphatase 31 L Total Protein 5.4 L Albumin 3.9 D IgG IgA IgM 07/17/18 07/17/18 05:01 09:04 WBC RBC Hgb Hct MCV MCH MCHC RDW Plt Count MPV PT INR APTT Fibrinogen Sodium Potassium Chloride Carbon Dioxide Anion Gap BUN Creatinine Estimated GFR POC Glucose 91 86 Random Glucose Calcium Total Bilirubin AST ALT Alkaline Phosphatase Total Protein Albumin IgG IgA IgM Medications: Active Medications Generic Name Dose Route Start Last Admin Trade Name Freq PRN Reason Stop Dose Admin Al Hydroxide/Mg Hydroxide 30 ml 06/30/18 11:38 07/07/18 15:45 Milk Of Magnesia Liq PO 30 ml Q12H PRN Administration Mild Constipation Albuterol 1 ampul 06/30/18 11:38 07/13/18 04:13 Duoneb Neb (Prn) NEB 1 ampul Q2HR NEB PRN Administration WHEEZING Dextrose 50 ml 06/30/18 11:44 07/14/18 21:14 D50w Vial IV.PUSH 50 ml UNSCH PRN Administration PER HYPOGLYCEMIA PROTOCOL Diphenhydramine HCl 25 mg 07/12/18 13:00 07/12/18 15:11 Benadryl Inj IV.PUSH 07/20/18 23:00 25 mg UNSCH PRN Administration ALLERGIC REACTION Fentanyl 1 patch 07/03/18 13:15 07/15/18 13:33 Duragesic 25 Mcg Patch.72hr T-DERMAL 1 patch Q72H ISIAH Administration Gabapentin 400 mg 07/11/18 22:00 07/17/18 09:06 Neurontin PO 400 mg TID ISIAH Administration Heparin Sodium (Porcine) 1,000 units 07/12/18 13:02 07/12/18 15:12 Heparin Inj IV.FLUSH 07/20/18 23:00 1,000 units UNSCH PRN Administration FLUSH AFTER USING IV ACCESS Hydrocortisone Acetate 20 mg 07/16/18 09:00 07/17/18 09:06 Cortef PO 20 mg TID ISIAH Administration Dextrose/Sodium Chloride 1,000 mls @ 75 mls/hr 07/05/18 16:28 07/17/18 02:36 D5w/1/2 Ns Inj IV.CONT 75 mls/hr .[id number] ISIAH Administration Insulin Human Regular 0 units 07/01/18 16:00 07/17/18 09:05 Novolin R Correctional Sugar Inj SQ Not Given Q4HR [facility] Protocol Lactulose 30 ml 06/30/18 11:38 07/16/18 14:46 Lactulose Liq PO 30 ml DAILY PRN Administration SEVERE CONSITIPATION Levetiracetam 750 mg 07/03/18 21:00 07/17/18 09:06 Keppra PO 750 mg BID ISIAH Administration Levothyroxine Sodium 75 mcg 07/04/18 06:00 07/17/18 05:02 Synthroid PO 75 mcg DAILY@0600 ISIAH Administration Lorazepam 1 mg 07/09/18 23:04 07/17/18 06:41 Ativan Inj IV.PUSH 1 mg Q4H PRN Administration seizures/anxiety Morphine Sulfate 15 mg 07/03/18 11:38 07/17/18 06:41 Msir PO 15 mg Q4H PRN Administration PAIN SCALE 1 TO 10 Morphine Sulfate 2 mg 07/15/18 16:24 07/17/18 09:08 Morphine Inj IV.PUSH 2 mg Q4H PRN Administration BREAKTHROUGH PAIN Pantoprazole Sodium 40 mg 07/07/18 09:00 07/17/18 09:06 Protonix PO 40 mg DAILY ISIAH Administration Patch Removal 1 each 07/03/18 13:00 07/15/18 13:32 Remove Old Patch T-DERMAL 1 each Q72H ISIAH Administration Patch Removal 1 each 07/03/18 13:00 07/15/18 13:33 Remove Old Patch T-DERMAL 1 each Q72H ISIA[facility] Administration Quetiapine Fumarate 400 mg 07/03/18 21:00 07/03/18 21:19 Seroquel PO Not Given BID ISIAH Quetiapine Fumarate 150 mg 07/11/18 22:00 07/16/18 22:11 Seroquel PO 150 mg HS ISIAH Administration Sodium Chloride 2 ml 06/30/18 09:58 07/16/18 20:56 Ns Flush IV.FLUSH 2 ml PRN PRN Administration FLUSH AFTER USING IV ACCESS Sodium Citrate 1,000 ml 07/12/18 12:45 07/16/18 12:11 Acd-A Solution EXTRACORPO 07/20/18 13:00 1,000 ml Q48H ISIAH Administration Tizanidine HCl 4 mg 07/13/18 12:15 07/17/18 02:28 Zanaflex PO 4 mg Q8H PRN Administration MUSCLE SPASM Whey 1 packet 07/10/18 21:00 07/17/18 09:07 Beneprotein Powder G-TUBE Not Given BID ISIAH Objective Remarks: GENERAL: Chronically ill-appearing young male patient, in no acute distress. SKIN: Warm and dry. HEAD: Normocephalic. EYES: No scleral icterus. No injection or drainage. NECK: Supple, trachea midline. Vas-cath to right neck. Gauze dressing to left neck. CARDIOVASCULAR: Regular rate and rhythm without murmurs. RESPIRATORY: Posterior breath sounds distant equal bilaterally. Nonlabored. GASTROINTESTINAL: Abdomen non-tender, nondistended. peg tube with TF. EXTREMITIES: No cyanosis, or edema. Boots in place. MUSCULOSKELETAL: Decreased muscle tone. NEUROLOGICAL: No obvious focal deficit. Awake, alert, and oriented x3. 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 Plasma phoresis EOD x's 5 treatments, tolerating well. A/P treatment #3 yesterday. 2. Fibrinogen 126 today, no transfusion necessary. Platelet count 58K, plan to transfuse if platelets drop below 50,000 3. Monitor daily CBC, CMP, coags. - Attending Statement Pt seen in Rm [id number]. Improving. no new problems. Will continue plamsapheresis and FFp as needed. Anemia and thrombocytopenia partly secondary to splenomegaly; will rule out GI bleed and iron deficiency contributing to anemia. See orders.
--- NOTE | 2018-07-17 14:36 | P.PNIM ---
Subjective Interval history: Patient without acute complaints but does say that he feels about the same over the last 24 hours but does note that he feels significant fatigue following plasmapheresis as the day continues. Patient has completed his third session and is anticipated to have 5 sessions prior to being sent over for rehab. No subjective fever chills. Fibrinogen levels are normal and at this time hematology is recommending against transfusion. Platelet counts are borderline transfusion threshold and will likely need transfusion on 07/18 when evaluated but for now we will hold off Physical Exam Vital signs: Last Vital Signs Temp 98.8 F 07/17/18 12:00 Pulse 106 H 07/17/18 12:00 Resp 18 07/17/18 12:00 BP 147/87 H 07/17/18 12:00 Pulse Ox 98 07/17/18 12:00 Intake & Output 07/15/18 07/16/18 07/17/18 07/18/18 06:59 06:59 06:59 06:59 Intake Total 3870 / 3870 1880 / 1880 1250 / 1250 Output Total 6950 / 6950 1950 / 1950 6825 / 6825 Balance -3080 / -3080 -70 / -70 -5575 / -5575 Weight 87.9 kg 87 kg General: No acute distress, conversational HEENT: Right pupillary dilation, EOMI Cardiovascular: S1/S2 Respiratory: Clear to auscultation Gastrointestinal: Soft, nontender, nondistended, no guarding or rebound. PEG Extremity: Muscle atrophy, 2+ radial pulse, no edema Neurology: Reduced sensation bilateral lower extremity. 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 Previously discussed with patient outpatient doctor regarding transitioning to oral diet considering past history of Boerhaave syndrome and at this time it is recommended against oral feeding. Continue physical therapy. Rehab Hematology consulted and following actively Neurology input appreciated previously Status post lumbar puncture 07/08. CT MR spine And thoracic MRI also unremarkable.Check fibrinogen level, CBC, chemistry level and coagulations. -will need to monitor platelet, CBC, and white blood cell count as plasmapheresis may inadvertently cause low levels Endocrinology: Adrenal insufficiency Oral hydrocortisone 20 mg 3 times daily. Patient outpatient [employer] Dr. Ornelas [phone]. Neurology: History seizure disorder Continue Keppra and gabapentin. PRN EEG reviewed and no focal abnormality and no seizures noted. Cardiology: Bradycardia Patient with Medtronic pacer Gastroenterology: Patient with history of Boerhaave syndrome with split fistula esophagectomy. Patient outpatient surgeon recommended against oral feeding at this time - Surgeon; Dr. Rudi Medina [phone]/ Soniya BREAUX [phone]). - Previous J-tube placement. Hepatitis profile: + Hep C Ig ab US abdomen: Hepatosplenomegaly On Protonix 40 mg p.o. for GI prophylaxis Continue tube feeds via J-tube change to Suplena with goal rate 70ml/hr DVT prophylaxis: SCD GI prophylaxis: Protonix 40 mg daily Progress Note: Quality VTE Deep Vein Thrombosis/Pulmonary Embolism Present on Admission: No
--- NOTE | 2018-07-17 14:55 | P.PNWCN ---
Wound Care Nurse Consult Description: Received consult from Doctor Rivera for wound management of the site of feeding tube. Communicated with: RN Recommendation: 1.Please change one piece pouching system to esophageal fistula every 3 to 5 days or as needed if leaking. Use fidelina seal lining fistula opening before applying pouch.Do not throw away clip for clip closure Active life pouch. 2. Please encrust skin around gastrostomy tube as follows: Apply stoma powder and then wipe off excess and then spray area with Cavilon skin barrier film repeat process one time daily for irritation. Apply gauze to cushion skin from bumper and change daily or as needed. Wound/Pressure Injury - Additional Information Patinet seen per consult placed by Doctor Rivera for wound management of the site of feeding tube. Removed bordered gauze in place around gastrostomy tube to reveal pink resolving skin irritation. Patient complains that the tube bumper has been "digging into his skin", causing painful irritation. Cleansed skin around tube with normal saline and cotton swab and patted dry. Encrusted skin around tube as follows: Applied stoma powder, wiped off excess and then sprayed area with Cavilon skin barrier film and repeated process one time. gauze was placed between skin and bumper. Patient tolerated procedure well. Also changed fistula management pouch on neck, using two piece Coloplast urostomy appliance.Left 2 one piece Convatec appliances and 1 two piece Coloplast appliance in room.Central supply is currently out of Active Life one piece pouches.
[2018-07-17 15:29] LABS: % Iron Saturation 32.8 % (20-50); Iron 39 mcg/dL (65-175); Total Iron Binding Capacity 119 mcg/dL (250-450)
[2018-07-17 15:37] LABS: Ferritin 184 ng/mL (26-388)
[2018-07-17] MEDS: QUEtiapine 100 MG Tablet PO SCH (22:30)
[2018-07-18] MEDS: Insulin NovoLIN Regular Correctional Sugar Inj SQ SCH ×6 (00:34→19:49)
[2018-07-18] MEDS: Morphine Sulfate 15 MG IR Tablet PO PRN ×5 (04:45→21:52)
[2018-07-18] MEDS: Levothyroxine 75 MCG Tablet PO SCH (05:00)
[2018-07-18 06:51] LABS: Hematocrit 24.1 % (39.0-51.0); Hemoglobin 8.2 gm/dL (13.0-17.0); Mean Corpuscular HGB Conc 34.1 % (32.0-36.0); Mean Corpuscular Hemoglobin 33.8 pg (27.0-34.0); Mean Corpuscular Volume 99.3 fL (80.0-100.0); Mean Platelet Volume 8.8 fL (7.0-11.0); Platelet Count 44 th/mm3 (150-450); Red Blood Count 2.42 mil/mm3 (4.50-5.90); Red Cell Distribution Width 17.2 % (11.6-17.2); White Blood Count 1.8 th/mm3 (4.0-11.0)
[2018-07-18 07:10] LABS: Activated Partial Thrombo Time 34.4 sec (23.4-31.7); INR 1.1 Ratio; Prothrombin Time 11.4 sec (9.8-11.6)
[2018-07-18 07:21] LABS: Alanine Aminotransferase 34 U/L (12-78); Albumin 3.8 g/dL (3.4-5.0); Anion Gap 5 meq/L (5-15); Aspartate Aminotransferase 16 U/L (15-37); Blood Urea Nitrogen 7 mg/dL (7-18); Calcium 8.1 mg/dL (8.5-10.1); Carbon Dioxide 31.3 meq/L (21.0-32.0); Chloride 106 meq/L (98-107); Glomerular Filtration Rate Greater Than 89 mL/min (>89); Glucose,Random 95 mg/dL (74-106); Potassium 3.4 meq/L (3.5-5.1); Sodium 142 meq/L (136-145)
[2018-07-18 07:22] LABS: Alkaline Phosphatase 44 U/L (45-117); Total Protein 5.8 g/dL (6.4-8.2)
[2018-07-18] MEDS: Morphine Inj 4 MG/ML Vial IV.PUSH PRN ×4 (07:34→20:30)
[2018-07-18] MEDS ORDERED: Sodium Chlor 0.9% Inj 250 ML IV.SIG SCH (08:00)
[2018-07-18] MEDS: Hydrocortisone 10 MG Tablet PO SCH ×3 (08:57→17:14)
[2018-07-18] MEDS: Gabapentin 400 MG Capsule PO SCH (08:57)
[2018-07-18 09:12] LABS: Basophilic Stippling Moderate; Eosinophils 2 % (0-4); Lymphocytes 30 % (9-44); Monocytes 8 % (0-8); Platelet Morphology Normal (Normal)
[2018-07-18] MEDS: levETIRAcetam 250 MG Tablet PO SCH ×2 (09:51→20:29)
[2018-07-18] MEDS: Beneprotein Powder Packet G-TUBE SCH ×2 (09:51→20:50)
--- NOTE | 2018-07-18 11:49 | P.DIET ---
Nutritional Evaluation Type of nutrition evaluation: follow-up (TF FU) Nutrition consult regarding: Tube Feeding [place] [facility] [place] comments[place] [facility] [place] Objective - Diagnosis ARF, PNA, AMS, Rhabodomylosis - Objective Aroda body weight: 62 kg % IBW: 130 (IBW = 136lb) Body Weight Used for Calculations: Actual (66.9kg (admission weight)) Energy Needs - Lower Range (kCal/kg): 25 Energy Needs - Upper Range (kCal/kg): 30 Lower Limit kCal/kg (kCals): 1,650 Upper Limit kCal/kg (kCals): 1,980 Lower Limit Protein Factor (Grams per Kg): 1 Upper Limit Protein Factor (Grams per Kg): 1.2 Lower Protein Needs (Protein): 66 Upper Protein Needs (Protein): 79 Dietitian Reviewed in Medical Record: Curent medications, Intake & Output, Labs , Medical history, Tube feeding Diet Order: TF'ing Speech Therapy Recommendations: Yes (Cleared for ice chips and water) Objective Comments: PMH: Boorhaave Syndrome, 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 .5, K 3.4 Medications; reviewed Skin; wound around PEG site Feeding - Current Tube Feeding Tube Feeding Product: Jevity 1.5 Tube Feeding Method: Pump (Jevity 1.5ml running at 50ml/hour) Assessment Assessment: TF FU; Pt continues to be at nutritional risk r/t clinical course and PEG dependance. Throughout clinical course weight has been steadily increasing which I have been monitoring. Important to note pt is receiving steroids which are likely causing increase in weight however pt was previously receiving TF order that was not appropriately meeting his energy requirements. Current body weight now is 72.5kg which is appropriate at this time, will continue to monitor. Current TF order is Jevity 1.5 running at 50ml/ hour to provide 1800kcal, 76.6g protein and 912ml free water. Pt is tolerating this formula at goal rate without any issues. Pt reported that he is still receiving Beneprotein packets and would like them to be d/c'ed, at this time beneprotein can be discontinued as TF is meeting pt's needs. Labs and medications reviewed. Will recommend to continue with TF as ordered. Will continue to monitor clinical course. Recommendations: 1. Continue with Jevity 1.5 at 50ml/hour 2. Discontinue beneprotien 3. Continue to monitor tolerance to TF 4. Continue to monitor weight Dietitian to Monitor: Lab values, Renal labs, Intake & Output, Tube feeding tolerance
--- NOTE | 2018-07-18 12:45 | P.PNIM ---
Subjective Interval history: Patient seen and evaluated this morning at bedside and was able to get up with walker today and it looks and feels better as per patient. Patient denies subjective fever and chills. Patient platelet count low and was ordered for 1 unit of platelets that is going to be transfused after discussion with nursing staff this morning. Again reinforced to patient that he is not able to take oral foods but ice chips are okay. Physical Exam Vital signs: Last Vital Signs Temp 98.8 F 07/18/18 08:00 Pulse 93 H 07/18/18 08:00 Resp 16 07/18/18 08:00 BP 142/79 H 07/18/18 08:00 Pulse Ox 100 07/18/18 08:00 Intake & Output 07/16/18 07/17/18 07/18/18 07/19/18 06:59 06:59 06:59 06:59 Intake Total 1880 / 1880 1250 / 1250 1550 / 1550 Output Total 1950 / 1950 6825 / 6825 3625 / 3625 Balance -70 / -70 -5575 / -5575 -2075 / -2075 Weight 87 kg 72.5 kg General: No acute distress, conversational HEENT: EOMI Cardiovascular: S1/S2 Laboratory: Clear to auscultation anterior and posteriorly, no intercostal muscle use Gastrointestinal: Soft, nontender, nondistended, no guarding or rebound appreciated. PEG site in left upper quadrant clean dry and intact without pus or tenderness. Extremity: No lower extremity edema, muscle atrophy, 2+ dorsalis pedis pulse noted Neurology: No focal deficits appreciated. Sensation intact. 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 Previously discussed with patient outpatient doctor regarding transitioning to oral diet considering past history of Boerhaave syndrome and at this time it is recommended against oral feeding. Continue physical therapy. Rehab Hematology consulted and following actively Neurology input appreciated previously Status post lumbar puncture 07/08. CT MR spine And thoracic MRI also unremarkable.Check fibrinogen level, CBC, chemistry level and coagulations. -Platelet 1 unit today - morphine 4mg q2hrs ( pt not new to opoids and takes oral outpatient) Endocrinology: Adrenal insufficiency Oral hydrocortisone 20 mg 3 times daily. Patient outpatient [employer] Dr. Ornelas [phone]. Neurology: History seizure disorder Continue Keppra and gabapentin 600 TID. PRN EEG reviewed and no focal abnormality and no seizures noted. Cardiology: Bradycardia Patient with Medtronic pacer Gastroenterology: Patient with history of Boerhaave syndrome with split fistula esophagectomy. Patient outpatient surgeon recommended against oral feeding at this time - Surgeon; Dr. Rudi Medina [phone]/ Soniya BREAUX [phone]). - Previous J-tube placement. Hepatitis profile: + Hep C Ig ab US abdomen: Hepatosplenomegaly On Protonix 40 mg p.o. for GI prophylaxis Continue tube feeds via J-tube change to Suplena with goal rate 70ml/hr DVT prophylaxis: SCD GI prophylaxis: Protonix 40 mg daily Progress Note: Quality VTE Deep Vein Thrombosis/Pulmonary Embolism Present on Admission: No
--- NOTE | 2018-07-18 12:52 | P.PNONC ---
Subjective Interval history: Patient lying in bed, massaging his right thigh. He reports continued pain in his legs, stating the doctor is working on my medications. Patient does feel like his left leg is getting stronger. He reports he was able to walk with a walker with PT yesterday. He states his right foot still drags. Discussed labs with his mother and home. His mother has questions in regards to transferring to a tertiary center. I have deferred her to neurology and attending in regards to this. Objective Vital Signs/Intake & Output: Vital Signs 07/17/18 16:00 07/17/18 20:00 07/18/18 00:00 Temperature 97.7 F 98.5 F 98 F Pulse Rate 86 76 92 H Respiratory Rate 18 17 18 Blood Pressure 136/76 134/64 122/58 L Pulse Oximetry 98 97 97 07/18/18 03:46 07/18/18 04:00 07/18/18 08:00 Temperature 98.6 F 98.8 F Pulse Rate 95 H 93 H Respiratory Rate 18 17 16 Blood Pressure 148/68 H 142/79 H Pulse Oximetry 99 100 Intake & Output 07/17/18 07/18/18 07/18/18 18:59 06:59 18:59 Intake Total 550 / 550 1000 / 1000 Output Total 3000 / 3000 625 / 625 Balance -2450 / -2450 375 / 375 Weight 72.5 kg Intake: IV 550 / 550 1000 / 1000 D5W/1/2 NS Inj 1,000 ML @ 75 550 / 550 1000 / 1000 mls/hr IV.CONT .[id number] [facility] Rx# :[id number] Output: Urine 3000 / 3000 625 / 625 Other: Date of Last Bowel Movement 07/16/18 07/17/18 # Bowel Movements 0 1 Result Diagrams: 07/18/18 06:20 07/18/18 06:20 Laboratory Results: Laboratory Results - last 24 hr 07/17/18 07/17/18 07/17/18 05:00 05:00 12:54 CBC w Diff WBC Corrected WBC RBC Hgb Hct MCV MCH MCHC RDW Plt Count MPV Prelim Diff (Auto) Immature Gran % (Auto) Neut % (Auto) Lymph % (Auto) [place] % (Auto) Eos % (Auto) Baso % (Auto) Immature Gran # (Auto) Neut # (Auto) Lymph # (Auto) [place] # (Auto) Eos # (Auto) Baso # (Auto) WBC Differential Diff Scan Total Counted Seg Neuts % (Manual) Band Neuts % (Manual) Lymphocytes % (Manual) Atypical Lymphs % (Man) Monocytes % (Manual) Eosinophils % (Manual) Basophils % (Manual) Metamyelocytes % (Man) Myelocytes % (Man) Promyelocytes % (Man) Blast Cells % (Manual) Plasma Cell % (Manual) Other Cells % Abs Neuts (Manual) Nucleated RBCs Nucleated RBCs/100 WBC Differential Comment Hypersegmented Neuts Smudge Cells Toxic Granulation Toxic Vacuolation Dohle Bodies Platelet Estimate Platelet Morphology RBC Morphology Dimorphic RBCs Polychromasia Basophilic Stippling Spherocytes Pappenheimer Bodies Sickle Cells Target Cells Tear Drop Cells Ovalocytes Stomatocytes Helmet Cells [place] Bodies Jayna Cells Acanthocytes (Spur) Rouleaux Keratocytes Haptoglobin Less than 8 L Cancelled Hematology Comments PT INR APTT Fibrinogen Sodium 143 Potassium 3.5 Chloride 106 Carbon Dioxide 33.9 H Anion Gap 3 L BUN 8 Creatinine 0.43 L Estimated GFR Greater than 89 POC Glucose 147 H Random Glucose 79 Calcium 8.2 L Iron 39 L Cancelled TIBC 119 L Cancelled % Saturation 32.8 Cancelled Ferritin 184 Cancelled Total Bilirubin 0.9 AST 14 L ALT 32 Alkaline Phosphatase 31 L Total Protein 5.4 L Albumin 3.9 D Bld Prod Order Comment 07/17/18 07/17/18 07/17/18 17:42 20:42 23:31 CBC w Diff WBC Corrected WBC RBC Hgb Hct MCV MCH MCHC RDW Plt Count MPV Prelim Diff (Auto) Immature Gran % (Auto) Neut % (Auto) Lymph % (Auto) [place] % (Auto) Eos % (Auto) Baso % (Auto) Immature Gran # (Auto) Neut # (Auto) Lymph # (Auto) [place] # (Auto) Eos # (Auto) Baso # (Auto) WBC Differential Diff Scan Total Counted Seg Neuts % (Manual) Band Neuts % (Manual) Lymphocytes % (Manual) Atypical Lymphs % (Man) Monocytes % (Manual) Eosinophils % (Manual) Basophils % (Manual) Metamyelocytes % (Man) Myelocytes % (Man) Promyelocytes % (Man) Blast Cells % (Manual) Plasma Cell % (Manual) Other Cells % Abs Neuts (Manual) Nucleated RBCs Nucleated RBCs/100 WBC Differential Comment Hypersegmented Neuts Smudge Cells Toxic Granulation Toxic Vacuolation Dohle Bodies Platelet Estimate Platelet Morphology RBC Morphology Dimorphic RBCs Polychromasia Basophilic Stippling Spherocytes Pappenheimer Bodies Sickle Cells Target Cells Tear Drop Cells Ovalocytes Stomatocytes Helmet Cells [place] Bodies Jayna Cells Acanthocytes (Spur) Rouleaux Keratocytes Haptoglobin Hematology Comments PT INR APTT Fibrinogen Sodium Potassium Chloride Carbon Dioxide Anion Gap BUN Creatinine Estimated GFR POC Glucose 110 109 100 Random Glucose Calcium Iron TIBC % Saturation Ferritin Total Bilirubin AST ALT Alkaline Phosphatase Total Protein Albumin Bld Prod Order Comment 07/18/18 07/18/18 07/18/18 04:51 06:20 06:20 CBC w Diff WBC 1.8 L Corrected WBC RBC 2.42 L Hgb 8.2 L Hct 24.1 L MCV 99.3 MCH 33.8 MCHC 34.1 RDW 17.2 Plt Count 44 L MPV 8.8 Prelim Diff (Auto) Immature Gran % (Auto) Neut % (Auto) Lymph % (Auto) [place] % (Auto) Eos % (Auto) Baso % (Auto) Immature Gran # (Auto) Neut # (Auto) Lymph # (Auto) [place] # (Auto) Eos # (Auto) Baso # (Auto) WBC Differential Manual diff final Diff Scan Total Counted Seg Neuts % (Manual) 59 Band Neuts % (Manual) Lymphocytes % (Manual) 30 Atypical Lymphs % (Man) Monocytes % (Manual) 8 Eosinophils % (Manual) 2 Basophils % (Manual) 1 Metamyelocytes % (Man) Myelocytes % (Man) Promyelocytes % (Man) Blast Cells % (Manual) Plasma Cell % (Manual) Other Cells % Abs Neuts (Manual) 1.1 L Nucleated RBCs Nucleated RBCs/100 WBC Differential Comment Auto diff final Hypersegmented Neuts Smudge Cells Toxic Granulation Toxic Vacuolation Dohle Bodies Platelet Estimate Low L Platelet Morphology Normal RBC Morphology Dimorphic RBCs Polychromasia Basophilic Stippling Moderate H Spherocytes Pappenheimer Bodies Sickle Cells Target Cells Tear Drop Cells Ovalocytes Stomatocytes Helmet Cells [place] Bodies [place] Cells Acanthocytes (Spur) Rouleaux Keratocytes Haptoglobin Hematology Comments PT 11.4 INR 1.1 APTT 34.4 H Fibrinogen 206 L Sodium Potassium Chloride Carbon Dioxide Anion Gap BUN Creatinine Estimated GFR POC Glucose 102 Random Glucose Calcium Iron TIBC % Saturation Ferritin Total Bilirubin AST ALT Alkaline Phosphatase Total Protein Albumin Bld Prod Order Comment 07/18/18 07/18/18 07/18/18 06:20 06:20 08:14 CBC w Diff Cancelled WBC Cancelled Corrected WBC Cancelled RBC Cancelled Hgb Cancelled Hct Cancelled MCV Cancelled MCH Cancelled MCHC Cancelled RDW Cancelled Plt Count Cancelled MPV Cancelled Prelim Diff (Auto) Cancelled Immature Gran % (Auto) Cancelled Neut % (Auto) Cancelled Lymph % (Auto) Cancelled [place] % (Auto) Cancelled Eos % (Auto) Cancelled Baso % (Auto) Cancelled Immature Gran # (Auto) Cancelled Neut # (Auto) Cancelled Lymph # (Auto) Cancelled [place] # (Auto) Cancelled Eos # (Auto) Cancelled Baso # (Auto) Cancelled WBC Differential Cancelled Diff Scan Cancelled Total Counted Cancelled Seg Neuts % (Manual) Cancelled Band Neuts % (Manual) Cancelled Lymphocytes % (Manual) Cancelled Atypical Lymphs % (Man) Cancelled Monocytes % (Manual) Cancelled Eosinophils % (Manual) Cancelled Basophils % (Manual) Cancelled Metamyelocytes % (Man) Cancelled Myelocytes % (Man) Cancelled Promyelocytes % (Man) Cancelled Blast Cells % (Manual) Cancelled Plasma Cell % (Manual) Cancelled Other Cells % Cancelled Abs Neuts (Manual) Cancelled Nucleated RBCs Cancelled Nucleated RBCs/100 WBC Cancelled Differential Comment Cancelled Hypersegmented Neuts Cancelled Smudge Cells Cancelled Toxic Granulation Cancelled Toxic Vacuolation Cancelled Dohle Bodies Cancelled Platelet Estimate Cancelled Platelet Morphology Cancelled RBC Morphology Cancelled Dimorphic RBCs Cancelled Polychromasia Cancelled Basophilic Stippling Cancelled Spherocytes Cancelled Pappenheimer Bodies Cancelled Sickle Cells Cancelled Target Cells Cancelled Tear Drop Cells Cancelled Ovalocytes Cancelled Stomatocytes Cancelled Helmet Cells Cancelled [place] Bodies Cancelled Jayna Cells Cancelled Acanthocytes (Spur) Cancelled Rouleaux Cancelled Keratocytes Cancelled Haptoglobin Hematology Comments Cancelled PT INR APTT Fibrinogen Sodium 142 Potassium 3.4 L Chloride 106 Carbon Dioxide 31.3 Anion Gap 5 BUN 7 Creatinine 0.50 L Estimated GFR Greater than 89 POC Glucose Random Glucose 95 Calcium 8.1 L Iron TIBC % Saturation Ferritin Total Bilirubin 0.7 AST 16 ALT 34 Alkaline Phosphatase 44 L Total Protein 5.8 L Albumin 3.8 Bld Prod Order Comment Medications: Active Medications Generic Name Dose Route Start Last Admin Trade Name Freq PRN Reason Stop Dose Admin Al Hydroxide/Mg Hydroxide 30 ml 06/30/18 11:38 07/07/18 15:45 Milk Of Magnesia Liq PO 30 ml Q12H PRN Administration Mild Constipation Albuterol 1 ampul 06/30/18 11:38 07/13/18 04:13 Duoneb Neb (Prn) NEB 1 ampul Q2HR NEB PRN Administration WHEEZING Dextrose 50 ml 06/30/18 11:44 07/14/18 21:14 D50w Vial IV.PUSH 50 ml UNSCH PRN Administration PER HYPOGLYCEMIA PROTOCOL Diphenhydramine HCl 25 mg 07/12/18 13:00 07/12/18 15:11 Benadryl Inj IV.PUSH 07/20/18 23:00 25 mg UNSCH PRN Administration ALLERGIC REACTION Fentanyl 1 patch 07/03/18 13:15 07/15/18 13:33 Duragesic 25 Mcg Patch.72hr T-DERMAL 1 patch Q72H ISIAH Administration Gabapentin 400 mg 07/11/18 22:00 07/18/18 08:57 Neurontin PO 400 mg TID ISIAH Administration Heparin Sodium (Porcine) 1,000 units 07/12/18 13:02 07/12/18 15:12 Heparin Inj IV.FLUSH 07/20/18 23:00 1,000 units UNSCH PRN Administration FLUSH AFTER USING IV ACCESS Hydrocortisone Acetate 20 mg 07/16/18 09:00 07/18/18 08:57 Cortef PO 20 mg TID ISIAH Administration Dextrose/Sodium Chloride 1,000 mls @ 75 mls/hr 07/05/18 16:28 07/17/18 23:58 D5w/1/2 Ns Inj IV.CONT 75 mls/hr .[id number] ISIAH Administration Insulin Human Regular 0 units 07/01/18 16:00 07/18/18 09:50 Novolin R Correctional Sugar Inj SQ Not Given Q4HR ISIAH Protocol Lactulose 30 ml 06/30/18 11:38 07/16/18 14:46 Lactulose Liq PO 30 ml DAILY PRN Administration SEVERE CONSITIPATION Levetiracetam 750 mg 07/03/18 21:00 07/18/18 09:51 Keppra PO 750 mg BID ISIAH Administration Levothyroxine Sodium 75 mcg 07/04/18 06:00 07/18/18 05:00 Synthroid PO 75 mcg DAILY@0600 ISIAH Administration Lorazepam 1 mg 07/09/18 23:04 07/17/18 23:49 Ativan Inj IV.PUSH 1 mg Q4H PRN Administration seizures/anxiety Morphine Sulfate 15 mg 07/03/18 11:38 07/18/18 08:57 Msir PO 15 mg Q4H PRN Administration PAIN SCALE 1 TO 10 Morphine Sulfate 2 mg 07/15/18 16:24 07/18/18 11:52 Morphine Inj IV.PUSH 2 mg Q4H PRN Administration BREAKTHROUGH PAIN Pantoprazole Sodium 40 mg 07/07/18 09:00 07/18/18 08:57 Protonix PO 40 mg DAILY ISIAH Administration Patch Removal 1 each 07/03/18 13:00 07/15/18 13:32 Remove Old Patch T-DERMAL 1 each Q72H ISIAH Administration Patch Removal 1 each 07/03/18 13:00 07/15/18 13:33 Remove Old Patch T-DERMAL 1 each Q72H ISIAH Administration Quetiapine Fumarate 400 mg 07/03/18 21:00 07/03/18 21:19 Seroquel PO Not Given BID ISIAH Quetiapine Fumarate 150 mg 07/11/18 22:00 07/17/18 22:30 Seroquel PO 150 mg HS ISIAH Administration Sodium Chloride 2 ml 06/30/18 09:58 07/16/18 20:56 Ns Flush IV.FLUSH 2 ml PRN PRN Administration FLUSH AFTER USING IV ACCESS Sodium Citrate 1,000 ml 07/12/18 12:45 07/16/18 12:11 Acd-A Solution EXTRACORPO 07/20/18 13:00 1,000 ml Q48H ISIAH Administration Tizanidine HCl 4 mg 07/13/18 12:15 07/18/18 06:09 Zanaflex PO 4 mg Q8H PRN Administration MUSCLE SPASM Whey 1 packet 07/10/18 21:00 07/18/18 09:51 Beneprotein Powder G-TUBE Not Given BID [facility] Objective Remarks: GENERAL: Chronically ill-appearing young male patient, in no acute distress. SKIN: Warm and dry. HEAD: Normocephalic. EYES: No scleral icterus. No injection or drainage. NECK: Supple, trachea midline. Vas-cath to right neck. Collection bag to left neck. CARDIOVASCULAR: Regular rate and rhythm without murmurs. RESPIRATORY: Posterior breath sounds distant equal bilaterally. Nonlabored. GASTROINTESTINAL: Abdomen non-tender, nondistended. peg tube with TF. EXTREMITIES: No cyanosis, or edema. Lft leg greater strength than rt. MUSCULOSKELETAL: Decreased muscle tone. NEUROLOGICAL: No obvious focal deficit. Awake, alert, and oriented x3. PSYCHIATRIC: Appropriate mood and affect; insight and judgment normal. Assessment/Plan - Plan Plan: 1. Guillan [place] syndrome syndrome: followed by neurology service. Plasma phoresis EOD x's 5 treatments, tolerating well. Pending treatment #4 today. Subjectively feels like his left leg is getting stronger. 2. Fibrinogen 206 today, no cryoprecipitate transfusion necessary. Platelet count 44K, plan to transfuse 1 unit of platelets today. 3. Pancytopenia, likely multifactorial. Monitoring trends, the patient tends to decrease and then increase. ANC today 1.1. If ANC falls below <1, will start neutropenic precautions. Differentials to include splenomegaly, medication side effect and plasmapheresis. 4. We will delay plasma exchange today as the patient has not received his platelet transfusion. Plan for plasma exchange #4 tomorrow if platelets> 50 K. Called and spoke with dialysis and they are aware. - Attending Statement Pt seen in rm [id number] early this am. Hemodynamically stable, neurologically improving. Hematologically with decreasing platelets while on pheresis but with no evidence of bleeding. Stool ob still pending. No evidence of DIC. Cytopenias mainly secondary to splenomegaly; thrombocytopenia secondary to plasmapheresis procedure, in addition. But no evidence of DIC. Will transfuse platelets today to be able to continue plasmapheresis safely tomorrow. Will continue to follow.
[2018-07-18] MEDS ORDERED: CALCIUM GLUCONATE IV.SIG ONE (13:00)
[2018-07-18] MEDS ORDERED: ALBUMIN HUMAN 5% IV.SIG ONE (13:00)
[2018-07-18] MEDS ORDERED: Gabapentin 300 MG Capsule PO SCH (13:00)
[2018-07-18] MEDS ORDERED: SODIUM CHLOR 0.9% IV.SIG ONE (13:00)
--- NOTE | 2018-07-18 16:11 | P.PNNEU ---
Subjective Subjective Comments: Pt states he feels his LE strength is improving, able to bear weight with walker and assist. He feel left arm is stronger. He is having more shooting pains in the extremities. Active Medications: Active Medications Al Hydroxide/Mg Hydroxide (Milk Of Magntiti Liq) 30 ml PO Q12H PRN PRN Reason: Mild Constipation Last Admin: 07/07/18 15:45 Dose: 30 ml Albuterol (Duoneb Neb (Prn)) 1 ampul NEB Q2HR NEB PRN PRN Reason: WHEEZING Last Admin: 07/13/18 04:13 Dose: 1 ampul Bisacodyl (Dulcolax Supp) 10 mg RECTAL DAILY PRN PRN Reason: SEVERE CONSITIPATION Dextrose (D50w Vial) 50 ml IV.PUSH UNSCH PRN PRN Reason: PER HYPOGLYCEMIA PROTOCOL Last Admin: 07/14/18 21:14 Dose: 50 ml Diphenhydramine HCl (Benadryl Inj) 25 mg IV.PUSH UNSCH PRN PRN Reason: ALLERGIC REACTION Stop: 07/20/18 23:00 Last Admin: 07/12/18 15:11 Dose: 25 mg Famotidine (Pepcid Pf Inj) 20 mg IV.PUSH UNSCH PRN PRN Reason: SEE LABEL COMMENTS Stop: 07/20/18 13:01 Fentanyl (Duragesic 25 Mcg Patch.72hr) 1 patch T-DERMAL Q72H [facility] Last Admin: 07/18/18 12:51 Dose: 1 patch Gabapentin (Neurontin) 600 mg PO TID [facility] Last Admin: 07/18/18 13:07 Dose: 600 mg Glucagon (Glucagon Inj) 1 mg OTHER PRN PRN PRN Reason: for Hypoglycemia Protocol Heparin Sodium (Porcine) (Heparin Central Flush) 0 unit IV.FLUSH DAILY PRN PRN Reason: SEE DOSE INSTRUCTIONS Heparin Sodium (Porcine) (Heparin Inj) 1,000 units IV.FLUSH UNSCH PRN PRN Reason: FLUSH AFTER USING IV ACCESS Stop: 07/20/18 23:00 Last Admin: 07/12/18 15:12 Dose: 1,000 units Hydrocortisone Acetate (Cortef) 20 mg PO TID [facility] Last Admin: 07/18/18 12:50 Dose: 20 mg Dextrose/Sodium Chloride (D5w/1/2 Ns Inj) 1,000 mls @ 75 mls/hr IV.CONT .[id number] [facility] Last Infusion: 07/18/18 14:02 Dose: Infused Sodium Chloride (Ns Inj) 250 mls @ 15 mls/hr IV.SIG ONCE [facility] Stop: 07/19/18 00:39 Insulin Human Regular (Novolin R Correctional Sugar Inj) 0 units SQ Q4HR [facility]; Protocol Last Admin: 07/18/18 14:03 Dose: Not Given Lactulose (Lactulose Liq) 30 ml PO DAILY PRN PRN Reason: SEVERE CONSITIPATION Last Admin: 07/16/18 14:46 Dose: 30 ml Levetiracetam (Keppra) 750 mg PO BID [facility] Last Admin: 07/18/18 09:51 Dose: 750 mg Levothyroxine Sodium (Synthroid) 75 mcg PO DAILY@0600 [facility] Last Admin: 07/18/18 05:00 Dose: 75 mcg Lorazepam (Ativan Inj) 1 mg IV.PUSH Q4H PRN PRN Reason: seizures/anxiety Last Admin: 07/18/18 12:58 Dose: 1 mg Morphine Sulfate (Msir) 15 mg PO Q4H PRN PRN Reason: PAIN SCALE 1 TO 10 Last Admin: 07/18/18 12:51 Dose: 15 mg Morphine Sulfate (Morphine Inj) 4 mg IV.PUSH Q4H PRN PRN Reason: BREAKTHROUGH PAIN Pantoprazole Sodium (Protonix) 40 mg PO DAILY [facility] Last Admin: 07/18/18 08:57 Dose: 40 mg Patch Removal (Remove Old Patch) 1 each T-DERMAL Q72H [facility] Last Admin: 07/18/18 13:08 Dose: 1 each Patch Removal (Remove Old Patch) 1 each T-DERMAL Q72H [facility] Last Admin: 07/18/18 13:08 Dose: 1 each Quetiapine Fumarate (Seroquel) 400 mg PO BID [facility] Last Admin: 07/03/18 21:19 Dose: Not Given Quetiapine Fumarate (Seroquel) 150 mg PO HS [facility] Last Admin: 07/17/18 22:30 Dose: 150 mg Sennosides (Senokot) 17.2 mg PO Q12H PRN PRN Reason: Moderate Constipation Sodium Chloride (Ns Flush) 2 ml IV.FLUSH PRN PRN PRN Reason: FLUSH AFTER USING IV ACCESS Last Admin: 07/16/18 20:56 Dose: 2 ml Sodium Chloride (Ns Flush) 0 ml IV.FLUSH PRN PRN PRN Reason: SEE DOSE INSTRUCTIONS Sodium Citrate (Acd-A Solution) 1,000 ml EXTRACORPO Q48H [facility] Stop: 07/20/18 13:00 Last Admin: 07/16/18 12:11 Dose: 1,000 ml Tizanidine HCl (Zanaflex) 4 mg PO Q6HR PRN PRN Reason: MUSCLE SPASM Last Admin: 07/18/18 14:10 Dose: 4 mg Whey (Beneprotein Powder) 1 packet G-TUBE BID ISIAH Last Admin: 07/18/18 09:51 Dose: Not Given Allergies/Adverse Reactions: Allergies Allergy/AdvReac Type Severity Reaction Status Date / Time codeine Allergy Severe Hives Unverified 06/30/18 10:28 tramadol Allergy Severe seizure Unverified 08/04/17 18:49 cyclobenzaprine Allergy Unknown Unresponsiv Verified 06/30/18 10:28 e fluvoxamine Allergy Unknown Unresponsiv Verified 06/30/18 10:28 e zolpidem Allergy Unknown Unconscious Verified 06/30/18 10:28 Beta-Blockers Allergy Anaphylaxis Verified 06/30/18 10:28 (Beta-Adrenergic Bloc MRI PRECAUTION AdvReac Severe NON REVO Uncoded 08/04/17 18:49 PACEMAKER Physical Exam Vital signs: Vital Signs 07/17/18 20:00 07/18/18 00:00 07/18/18 03:46 Temperature 98.5 F 98 F Pulse Rate 76 92 H Respiratory Rate 17 18 18 Blood Pressure 134/64 122/58 L Pulse Oximetry 97 97 07/18/18 04:00 07/18/18 08:00 07/18/18 12:00 Temperature 98.6 F 98.8 F 98.6 F Pulse Rate 95 H 93 H 83 Respiratory Rate 17 16 18 Blood Pressure 148/68 H 142/79 H 141/84 H Pulse Oximetry 99 100 100 07/18/18 15:32 Temperature 98.0 F Pulse Rate 84 Respiratory Rate 18 Blood Pressure 137/81 Pulse Oximetry 100 Intake & Output 07/17/18 07/18/18 07/18/18 18:59 06:59 18:59 Intake Total 550 / 550 1000 / 1000 1000 / 1000 Output Total 3000 / 3000 625 / 625 Balance -2450 / -2450 375 / 375 1000 / 1000 Weight 72.5 kg Intake: IV 550 / 550 1000 / 1000 1000 / 1000 D5W/1/2 NS Inj 1,000 ML @ 75 550 / 550 1000 / 1000 1000 / 1000 mls/hr IV.CONT .[id number] [facility] Rx# :[id number] Intake (Blood Product) Amt 0 / 0 Plt Pheresis S Leukoreduced 0 / 0 Unit [id number] Output: Urine 3000 / 3000 625 / 625 Other: Date of Last Bowel Movement 07/16/18 07/17/18 # Bowel Movements 0 1 - Routine Neurological Exam alert, speech normal CN intact MOTOR 5/5 BUE 4+/5 proximal BLE. 4+/5 bilateral quads and hamstring 2/5 right tibialis anterior and 3/5 right gastrocnemius soleus 4/5 left tibialis anterior and gastrocnemius soleus. Objective Laboratory Results - last 24 hr 07/17/18 07/17/18 07/17/18 17:42 20:42 23:31 CBC w Diff WBC Corrected WBC RBC Hgb Hct MCV MCH MCHC RDW Plt Count MPV Prelim Diff (Auto) Immature Gran % (Auto) Neut % (Auto) Lymph % (Auto) [place] % (Auto) Eos % (Auto) Baso % (Auto) Immature Gran # (Auto) Neut # (Auto) Lymph # (Auto) [place] # (Auto) Eos # (Auto) Baso # (Auto) WBC Differential Diff Scan Total Counted Seg Neuts % (Manual) Band Neuts % (Manual) Lymphocytes % (Manual) Atypical Lymphs % (Man) Monocytes % (Manual) Eosinophils % (Manual) Basophils % (Manual) Metamyelocytes % (Man) Myelocytes % (Man) Promyelocytes % (Man) Blast Cells % (Manual) Plasma Cell % (Manual) Other Cells % Abs Neuts (Manual) Nucleated RBCs Nucleated RBCs/100 WBC Differential Comment Hypersegmented Neuts Smudge Cells Toxic Granulation Toxic Vacuolation Dohle Bodies Platelet Estimate Platelet Morphology RBC Morphology Dimorphic RBCs Polychromasia Basophilic Stippling Spherocytes Pappenheimer Bodies Sickle Cells Target Cells Tear Drop Cells Ovalocytes Stomatocytes Helmet Cells Russo-Hannah Bodies Jayna Cells Acanthocytes (Spur) Rouleaux Keratocytes Hematology Comments PT INR APTT Fibrinogen Sodium Potassium Chloride Carbon Dioxide Anion Gap BUN Creatinine Estimated GFR POC Glucose 110 109 100 Random Glucose Calcium Total Bilirubin AST ALT Alkaline Phosphatase Total Protein Albumin Bld Prod Order Comment 07/18/18 07/18/18 07/18/18 04:51 06:20 06:20 CBC w Diff WBC 1.8 L Corrected WBC RBC 2.42 L Hgb 8.2 L Hct 24.1 L MCV 99.3 MCH 33.8 MCHC 34.1 RDW 17.2 Plt Count 44 L MPV 8.8 Prelim Diff (Auto) Immature Gran % (Auto) Neut % (Auto) Lymph % (Auto) [place] % (Auto) Eos % (Auto) Baso % (Auto) Immature Gran # (Auto) Neut # (Auto) Lymph # (Auto) [place] # (Auto) Eos # (Auto) Baso # (Auto) WBC Differential Manual diff final Diff Scan Total Counted Seg Neuts % (Manual) 59 Band Neuts % (Manual) Lymphocytes % (Manual) 30 Atypical Lymphs % (Man) Monocytes % (Manual) 8 Eosinophils % (Manual) 2 Basophils % (Manual) 1 Metamyelocytes % (Man) Myelocytes % (Man) Promyelocytes % (Man) Blast Cells % (Manual) Plasma Cell % (Manual) Other Cells % Abs Neuts (Manual) 1.1 L Nucleated RBCs Nucleated RBCs/100 WBC Differential Comment Auto diff final Hypersegmented Neuts Smudge Cells Toxic Granulation Toxic Vacuolation Dohle Bodies Platelet Estimate Low L Platelet Morphology Normal RBC Morphology Dimorphic RBCs Polychromasia Basophilic Stippling Moderate H Spherocytes Pappenheimer Bodies Sickle Cells Target Cells Tear Drop Cells Ovalocytes Stomatocytes Helmet Cells Russo-Hannah Bodies Jayna Cells Acanthocytes (Spur) Rouleaux Keratocytes Hematology Comments PT 11.4 INR 1.1 APTT 34.4 H Fibrinogen 206 L Sodium Potassium Chloride Carbon Dioxide Anion Gap BUN Creatinine Estimated GFR POC Glucose 102 Random Glucose Calcium Total Bilirubin AST ALT Alkaline Phosphatase Total Protein Albumin Bld Prod Order Comment 07/18/18 07/18/18 07/18/18 06:20 06:20 08:14 CBC w Diff Cancelled WBC Cancelled Corrected WBC Cancelled RBC Cancelled Hgb Cancelled Hct Cancelled MCV Cancelled MCH Cancelled MCHC Cancelled RDW Cancelled Plt Count Cancelled MPV Cancelled Prelim Diff (Auto) Cancelled Immature Gran % (Auto) Cancelled Neut % (Auto) Cancelled Lymph % (Auto) Cancelled [place] % (Auto) Cancelled Eos % (Auto) Cancelled Baso % (Auto) Cancelled Immature Gran # (Auto) Cancelled Neut # (Auto) Cancelled Lymph # (Auto) Cancelled [place] # (Auto) Cancelled Eos # (Auto) Cancelled Baso # (Auto) Cancelled WBC Differential Cancelled Diff Scan Cancelled Total Counted Cancelled Seg Neuts % (Manual) Cancelled Band Neuts % (Manual) Cancelled Lymphocytes % (Manual) Cancelled Atypical Lymphs % (Man) Cancelled Monocytes % (Manual) Cancelled Eosinophils % (Manual) Cancelled Basophils % (Manual) Cancelled Metamyelocytes % (Man) Cancelled Myelocytes % (Man) Cancelled Promyelocytes % (Man) Cancelled Blast Cells % (Manual) Cancelled Plasma Cell % (Manual) Cancelled Other Cells % Cancelled Abs Neuts (Manual) Cancelled Nucleated RBCs Cancelled Nucleated RBCs/100 WBC Cancelled Differential Comment Cancelled Hypersegmented Neuts Cancelled Smudge Cells Cancelled Toxic Granulation Cancelled Toxic Vacuolation Cancelled Dohle Bodies Cancelled Platelet Estimate Cancelled Platelet Morphology Cancelled RBC Morphology Cancelled Dimorphic RBCs Cancelled Polychromasia Cancelled Basophilic Stippling Cancelled Spherocytes Cancelled Pappenheimer Bodies Cancelled Sickle Cells Cancelled Target Cells Cancelled Tear Drop Cells Cancelled Ovalocytes Cancelled Stomatocytes Cancelled Helmet Cells Cancelled Russo-Hannah Bodies Cancelled [place] Cells Cancelled Acanthocytes (Spur) Cancelled Rouleaux Cancelled Keratocytes Cancelled Hematology Comments Cancelled PT INR APTT Fibrinogen Sodium 142 Potassium 3.4 L Chloride 106 Carbon Dioxide 31.3 Anion Gap 5 BUN 7 Creatinine 0.50 L Estimated GFR Greater than 89 POC Glucose Random Glucose 95 Calcium 8.1 L Total Bilirubin 0.7 AST 16 ALT 34 Alkaline Phosphatase 44 L Total Protein 5.8 L Albumin 3.8 Bld Prod Order Comment 07/18/18 13:17 CBC w Diff WBC Corrected WBC RBC Hgb Hct MCV MCH MCHC RDW Plt Count MPV Prelim Diff (Auto) Immature Gran % (Auto) Neut % (Auto) Lymph % (Auto) [place] % (Auto) Eos % (Auto) Baso % (Auto) Immature Gran # (Auto) Neut # (Auto) Lymph # (Auto) [place] # (Auto) Eos # (Auto) Baso # (Auto) WBC Differential Diff Scan Total Counted Seg Neuts % (Manual) Band Neuts % (Manual) Lymphocytes % (Manual) Atypical Lymphs % (Man) Monocytes % (Manual) Eosinophils % (Manual) Basophils % (Manual) Metamyelocytes % (Man) Myelocytes % (Man) Promyelocytes % (Man) Blast Cells % (Manual) Plasma Cell % (Manual) Other Cells % Abs Neuts (Manual) Nucleated RBCs Nucleated RBCs/100 WBC Differential Comment Hypersegmented Neuts Smudge Cells Toxic Granulation Toxic Vacuolation Dohle Bodies Platelet Estimate Platelet Morphology RBC Morphology Dimorphic RBCs Polychromasia Basophilic Stippling Spherocytes Pappenheimer Bodies Sickle Cells Target Cells Tear Drop Cells Ovalocytes Stomatocytes Helmet Cells Russo-Hannah Bodies Jayna Cells Acanthocytes (Spur) Rouleaux Keratocytes Hematology Comments PT INR APTT Fibrinogen Sodium Potassium Chloride Carbon Dioxide Anion Gap BUN Creatinine Estimated GFR POC Glucose 98 Random Glucose Calcium Total Bilirubin AST ALT Alkaline Phosphatase Total Protein Albumin Bld Prod Order Comment Review/Management - Diagnosis (1) Myelopathy Code(s): G95.9 - Disease of spinal cord, unspecified Status: Acute Current Visit: Yes - Review/Management Plan: continue with plasmapheresis for total of 5 treatments when able to given his pancytopenia. increase gabapentin to 600 mg QID His mother requests consideration for referal to a [facility] hospital. Will consult disability case manager to look into [facility] or [facility]
[2018-07-18] MEDS: Gabapentin 300 MG Capsule PO SCH ×2 (17:14→20:29)
[2018-07-18] MEDS: Dextrose 5%/NaCl 0.45% Inj 1,000 ML IV.CONT SCH ×2 (18:10→21:52)
[2018-07-18] MEDS: QUEtiapine 100 MG Tablet PO SCH (20:29)
--- NOTE | 2018-07-18 23:37 | XR ---
EXAM DATE: 07/18/2018 11:18 PM EST AGE/SEX: 32 years / Male INDICATIONS: Fever. CLINICAL DATA: This is the patient's subsequent encounter. Patient reports that signs and symptoms h ave been present for 2 weeks and indicates a pain score of 0/10. MEDICAL/SURGICAL HISTORY: . Boerhaave Syndrome, Adrenal Insufficiency, Pituitary Dysfunction, P TSD, Seizure Disorder. . Spit Fistula Esophagectomy, J-tube, Pacemaker. COMPARISON: C, CHEST 1V SINGLE AP, 06/30/2018. . FINDINGS: Mild patchy airspace consolidation present, mostly laterally of the right mid lung and at the left ba se. Elevated left hemidiaphragm again noted. No large effusions seen. No pneumothorax. Heart size stable, within normal limits. Cardiac pacer again noted. A right internal jugular double lumen catheter is been placed. Distal tip is in the right atrium. CONCLUSION: 1. Mild patchy bilateral nonspecific airspace opacities as described. 2. Elevated left hemidiaphragm again noted. 3. Normal, stable heart size. Cardiac pacer again noted. 4. Right IJ line with distal tip in the right atrium. Electronically signed by: Lawrence Calles MD Board Certified Radiologist 07/18/2018 11:36 PM EST
[2018-07-19] MEDS ORDERED: Vancomycin Consult Pharmacy OTHER PRN ×2 (00:08→10:56)
[2018-07-19] MEDS ORDERED: Vancomycin Inj 1,000 MG in Sodium Chlor 0.9% Inj 250 ML IV.SIG ONE (00:09)
[2018-07-19] MEDS ORDERED: Ibuprofen 400 MG Tablet PO ONE (00:22)
[2018-07-19] MEDS: Morphine Inj 4 MG/ML Vial IV.PUSH PRN ×3 (00:28→09:15)
[2018-07-19 00:35] LABS: Amorphous Sediment,Urine Rare /hpf; Bilirubin,Urine Negative (Negative); Clarity,Urine Hazy (Clear); Color,Urine Yellow (Yellw/Straw); Glucose,Urine (UA) Negative (Negative); Leukocyte Esterase,Urine Negative (Negative); Mucus,Urine Few /lpf (Occasional); Nitrite,Urine Negative (Negative)
[2018-07-19] MEDS: Insulin NovoLIN Regular Correctional Sugar Inj SQ SCH ×7 (00:36→23:07)
[2018-07-19] MEDS: Piperacil/Tazo 4.5 GM Premix 4.5 GM/100 ML BAG IV.SIG SCH ×2 (00:58→05:16)
[2018-07-19] MEDS: Morphine Sulfate 15 MG IR Tablet PO PRN ×5 (01:58→23:55)
[2018-07-19] MEDS ORDERED: Vancomycin Inj 1,500 MG in Sodium Chlor 0.9% Inj 500 ML IV.SIG SCH (02:00)
[2018-07-19] MEDS ORDERED: Sodium Chlor 0.9% Inj 500 ML IV.SIG SCH (02:03)
[2018-07-19] MEDS: Dextrose 5%/NaCl 0.45% Inj 1,000 ML IV.CONT SCH ×3 (02:07→21:38)
[2018-07-19] MEDS: Levothyroxine 75 MCG Tablet PO SCH (05:07)
[2018-07-19 06:59] LABS: Baso % (Auto) 0.6 % (0.0-2.0); Eos % (Auto) 0.6 % (0.0-4.0); Lymph # (Auto) 0.2 th/mm3 (1.0-4.8); Lymph % (Auto) 12.8 % (9.0-44.0); Mean Corpuscular HGB Conc 34.3 % (32.0-36.0); Mean Corpuscular Volume 99.1 fL (80.0-100.0); Mean Platelet Volume 8.9 fL (7.0-11.0); Mono # (Auto) 0.1 th/mm3 (0.0-0.9); Mono % (Auto) 9.8 % (0.0-8.0); Neut # (Auto) 1.1 th/mm3 (1.8-7.7); Neut % (Auto) 76.2 % (16.0-70.0); Platelet Count 48 th/mm3 (150-450); Red Blood Count 2.11 mil/mm3 (4.50-5.90); Red Cell Distribution Width 17.2 % (11.6-17.2); White Blood Count 1.4 th/mm3 (4.0-11.0)
[2018-07-19 07:12] LABS: Hematocrit 20.9 % (39.0-51.0); Hemoglobin 7.2 gm/dL (13.0-17.0)
[2018-07-19 07:18] LABS: Activated Partial Thrombo Time 36.2 sec (23.4-31.7); INR 1.2 Ratio; Prothrombin Time 12.4 sec (9.8-11.6)
[2018-07-19 07:24] LABS: Alanine Aminotransferase 32 U/L (12-78); Albumin 3.4 g/dL (3.4-5.0); Anion Gap 8 meq/L (5-15); Aspartate Aminotransferase 19 U/L (15-37); Blood Urea Nitrogen 10 mg/dL (7-18); Calcium 7.6 mg/dL (8.5-10.1); Carbon Dioxide 27.1 meq/L (21.0-32.0); Chloride 103 meq/L (98-107); Glomerular Filtration Rate Greater Than 89 mL/min (>89); Glucose,Random 127 mg/dL (74-106); Sodium 138 meq/L (136-145)
[2018-07-19 07:29] LABS: % Iron Saturation 3.5 % (20-50); Alkaline Phosphatase 47 U/L (45-117); Iron 5 mcg/dL (65-175); Total Iron Binding Capacity 141 mcg/dL (250-450); Total Protein 5.3 g/dL (6.4-8.2)
[2018-07-19] MEDS: levETIRAcetam 250 MG Tablet PO SCH ×2 (08:40→20:28)
[2018-07-19] MEDS: Gabapentin 300 MG Capsule PO SCH ×4 (08:40→20:27)
[2018-07-19] MEDS: Hydrocortisone 10 MG Tablet PO SCH ×3 (08:43→19:06)
[2018-07-19] MEDS: Beneprotein Powder Packet G-TUBE SCH ×2 (08:44→20:29)
[2018-07-19 09:14] LABS: Lymphocytes 17 % (9-44); Monocytes 7 % (0-8)
[2018-07-19] MEDS: Potassium Chlor 20 mEq Premix 20 MEQ/100 ML PIGGYBACK IV.SIG SCH ×2 (09:15→13:00)
[2018-07-19 09:16] LABS: Platelet Morphology Normal (Normal)
[2018-07-19] MEDS ORDERED: Sod Chloride 0.9% Inj 1,000 ML IV.SIG SCH (11:04)
--- NOTE | 2018-07-19 11:05 | P.PNIM ---
Subjective Interval history: Patient with uneventful night overnight with temperature spike to 102 for which she was given fluids and repeat blood cultures and chest x-ray was obtained. Patient seen this morning at bedside and denies subjective fever says he occasionally feels a chill. Patient denied sore throat, cough, tender glands under the neck, burning with urination, or wheezing. Patient has been visited by outside family and friends but does not report noticing any one who appears to be sick. I spoke with patient's mother who reports that patient had a bone marrow biopsy over the summer and was told that his bone marrow might have been weak due to medications. Family to bring him official report for my review. Patient hemoglobin also noted to be low this morning less than 8. Patient denied having any bloody bowel movement, hematemesis, or noticing any hematuria. Patient potassium level also low. We will supplement at this time and repeat CBC and chemistry in the afternoon. Patient has been tachycardic during periods of fever and will need additional fluid and monitoring. Case briefly discussed with nursing staff and we will repeat a blood culture from the patient's right internal jugular non-tunneled catheter site. Patient reports that his original blood cultures were taken peripherally. Patient is currently on antibiotics and I will transition him over to vancomycin and cefepime. Will request pharmacy assistance with dosing vancomycin with a goal trough of 15-20. I will reach out to hematology to discuss holding off on plasmapheresis today and a current setting of febrile episode. Patient will ultimately need to continue receiving plasmapheresis sessions. Physical Exam Vital signs: Last Vital Signs Temp 102.3 F H 07/19/18 08:00 Pulse 111 H 07/19/18 08:00 Resp 20 07/19/18 08:00 BP 102/52 L 07/19/18 08:00 Pulse Ox 96 07/19/18 08:00 Intake & Output 07/17/18 07/18/18 07/19/18 07/20/18 06:59 06:59 06:59 06:59 Intake Total 1250 / 1250 1550 / 1550 3573 / 3573 Output Total 6825 / 6825 3625 / 3625 3180 / 3180 Balance -5575 / -5575 -2075 / -2075 393 / 393 Weight 72.5 kg 72.5 kg General: No acute distress HEENT: EOMI, PERRLA, no tender submandibular or sublingual lymph nodes, no tonsillar erythema noted Cardiovascular: S1/S2. Tachycardia Respiratory: Clear to auscultation anteriorly and posteriorly Gastrointestinal: Soft, nontender, nondistended, no guarding or rebound appreciated. PEG site appears clean dry and intact without erythema Extremity: No lower extremity edema, muscle atrophy is present Results Labs CBC & Chem 7: 07/19/18 06:25 07/19/18 06:25 Imaging Imaging: Impressions Chest X-Ray 07/18/18 00:00 CONCLUSION: 1. Mild patchy bilateral nonspecific airspace opacities as described. 2. Elevated left hemidiaphragm again noted. 3. Normal, stable heart size. Cardiac pacer again noted. 4. Right IJ line with distal tip in the right atrium. 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 Previously discussed with patient outpatient doctor regarding transitioning to oral diet considering past history of Boerhaave syndrome and at this time it is recommended against oral feeding. Continue physical therapy. Rehab Hematology consulted and following actively Neurology input appreciated previously Status post lumbar puncture 07/08. CT MR spine - And thoracic MRI also unremarkable.Check fibrinogen level, CBC, chemistry level and coagulations. - Platelet 1 unit today - dilaudid .5mg IV q2 ( pt not new to opoids and takes oral outpatient) Discussed with nursing staff and we will obtain an occult sample for testing of bleeding Repeat CBC and chemistry testing in afternoon Infectious disease: Neutropenic fever Vancomycin 1 g every 12 and cefepime 2 g every 12 Repeat blood culture from patient's right internal jugular catheter Fluid bolus for tachycardia If patient continues to be febrile 48 hours after original blood cultures taken will continue to repeat. No active source of infection noted on physical examination today. Suspect patient's reduction in cell counts is multifactorial we will discuss with hematology and needed additional recommendations. - CXR - mild patchy opacity? could be possible source - obtain procalcitonin levels for morning - legionella, mycoplasma, pneumococcal antigens - obtain outpatient records of BM biopsy. Nephrology: Hypokalemia Supplement potassium Endocrinology: Adrenal insufficiency Oral hydrocortisone 20 mg 3 times daily. 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 Ornelas [phone]. Neurology: History seizure disorder Continue Keppra and gabapentin 600 TID. PRN EEG reviewed and no focal abnormality and no seizures noted. Cardiology: Bradycardia Patient with [employer] pacer Gastroenterology: Patient with history of Boerhaave syndrome with split fistula esophagectomy. Patient outpatient surgeon recommended against oral feeding at this time - Surgeon; Dr. Rudi Medina [phone]/ Soniya BREAUX [phone]). - Previous J-tube placement. Hepatitis profile: + Hep C Ig ab US abdomen: Hepatosplenomegaly On Protonix 40 mg p.o. for GI prophylaxis Continue tube feeds via J-tube change to [place] with goal rate 70ml/hr DVT prophylaxis: SCD GI prophylaxis: Protonix 40 mg daily Progress Note: Quality VTE Deep Vein Thrombosis/Pulmonary Embolism Present on Admission: No
[2018-07-19] MEDS ORDERED: Sodium Chlor 0.9% Inj 250 ML IV.SIG SCH (12:00)
[2018-07-19] MEDS: HYDROmorphone PF Inj 0.5 MG/0.5 ML Syringe IV.PUSH SCH ×7 (12:29→22:44)
[2018-07-19] MEDS: Vancomycin Inj 1,250 MG in Sodium Chlor 0.9% Inj 250 ML IV.SIG SCH ×2 (12:58→23:59)
[2018-07-19 13:57] LABS: Baso % (Auto) 0.8 % (0.0-2.0); Eos % (Auto) 0.3 % (0.0-4.0); Hematocrit 24.4 % (39.0-51.0); Hemoglobin 8.6 gm/dL (13.0-17.0); Lymph # (Auto) 0.2 th/mm3 (1.0-4.8); Lymph % (Auto) 7.8 % (9.0-44.0); Mean Corpuscular HGB Conc 35.1 % (32.0-36.0); Mean Corpuscular Hemoglobin 34.7 pg (27.0-34.0); Mean Corpuscular Volume 98.9 fL (80.0-100.0); Mean Platelet Volume 8.8 fL (7.0-11.0); Mono # (Auto) 0.2 th/mm3 (0.0-0.9); Neut # (Auto) 2.5 th/mm3 (1.8-7.7); Neut % (Auto) 83.1 % (16.0-70.0); Platelet Count 63 th/mm3 (150-450); Red Blood Count 2.47 mil/mm3 (4.50-5.90)
[2018-07-19] MEDS: QUEtiapine 100 MG Tablet PO SCH (20:29)
[2018-07-20] MEDS: HYDROmorphone PF Inj 0.5 MG/0.5 ML Syringe IV.PUSH SCH ×13 (00:52→23:09)
[2018-07-20] MEDS: Dextrose 5%/NaCl 0.45% Inj 1,000 ML IV.CONT SCH ×2 (03:13→19:46)
[2018-07-20] MEDS: Morphine Sulfate 15 MG IR Tablet PO PRN ×6 (04:07→23:53)
[2018-07-20] MEDS: Insulin NovoLIN Regular Correctional Sugar Inj SQ SCH ×5 (04:11→21:09)
[2018-07-20] MEDS: Levothyroxine 75 MCG Tablet PO SCH (05:53)
[2018-07-20 08:07] LABS: Baso % (Auto) 0.7 % (0.0-2.0); Hematocrit 25.7 % (39.0-51.0); Hemoglobin 8.6 gm/dL (13.0-17.0); Lymph # (Auto) 0.3 th/mm3 (1.0-4.8); Lymph % (Auto) 26.3 % (9.0-44.0); Mean Corpuscular HGB Conc 33.5 % (32.0-36.0); Mean Corpuscular Hemoglobin 33.8 pg (27.0-34.0); Mean Corpuscular Volume 100.8 fL (80.0-100.0); Mono % (Auto) 4.7 % (0.0-8.0); Neut # (Auto) 0.7 th/mm3 (1.8-7.7); Neut % (Auto) 65.3 % (16.0-70.0); Platelet Count 36 th/mm3 (150-450); Red Blood Count 2.55 mil/mm3 (4.50-5.90); Red Cell Distribution Width 17.2 % (11.6-17.2); White Blood Count 1.1 th/mm3 (4.0-11.0)
[2018-07-20 08:11] LABS: Reticulocyte Percent 2.7 % (0.4-3.0)
[2018-07-20 08:30] LABS: Activated Partial Thrombo Time 31.5 sec (23.4-31.7); INR 1.1 Ratio; Prothrombin Time 11.2 sec (9.8-11.6)
[2018-07-20 08:35] LABS: Alanine Aminotransferase 50 U/L (12-78); Albumin 3.7 g/dL (3.4-5.0); Alkaline Phosphatase 60 U/L (45-117); Anion Gap 7 meq/L (5-15); Aspartate Aminotransferase 21 U/L (15-37); Blood Urea Nitrogen 10 mg/dL (7-18); Calcium 8.6 mg/dL (8.5-10.1); Carbon Dioxide 30.3 meq/L (21.0-32.0); Chloride 106 meq/L (98-107); Glomerular Filtration Rate Greater Than 89 mL/min (>89); Glucose,Random 86 mg/dL (74-106); Haptoglobin 114 mg/dL (30-200); Lactate Dehydrogenase 297 U/L (87-241); Sodium 143 meq/L (136-145); Total Protein 6.4 g/dL (6.4-8.2)
[2018-07-20 09:05] LABS: Lymphocytes 28 % (9-44); Monocytes 9 % (0-8)
[2018-07-20 09:06] LABS: Platelet Morphology Normal (Normal)
[2018-07-20] MEDS: Gabapentin 300 MG Capsule PO SCH ×4 (09:22→21:04)
[2018-07-20] MEDS: levETIRAcetam 250 MG Tablet PO SCH ×2 (09:22→21:04)
[2018-07-20] MEDS: Hydrocortisone 10 MG Tablet PO SCH ×3 (09:22→19:09)
[2018-07-20] MEDS: Beneprotein Powder Packet G-TUBE SCH ×2 (10:35→21:09)
[2018-07-20] MEDS: Vancomycin Inj 1,250 MG in Sodium Chlor 0.9% Inj 250 ML IV.SIG SCH ×2 (11:36→23:54)
[2018-07-20] MEDS ORDERED: Potassium Chlor 20 mEq Premix 20 MEQ/100 ML PIGGYBACK IV.SIG ONE ×2 (12:00→14:00)
[2018-07-20] MEDS ORDERED: Sodium Chlor 0.9% Inj 250 ML IV.SIG SCH (12:00)
--- NOTE | 2018-07-20 12:46 | P.PNONC ---
Subjective Interval history: No further fevers Patient denies any bleeding Reports warm water helps significantly with the pain in his legs He is overall improved since the plasma exchange started Objective Vital Signs/Intake & Output: Vital Signs 07/19/18 16:00 07/19/18 20:00 07/20/18 00:00 Temperature 97.5 F L 97.8 F 97.5 F L Pulse Rate 74 69 73 Respiratory Rate 18 18 18 Blood Pressure 114/58 L 93/52 L 102/53 L Pulse Oximetry 98 98 100 07/20/18 04:00 07/20/18 08:00 Temperature 98.5 F 97.4 F L Pulse Rate 85 104 H Respiratory Rate 18 20 Blood Pressure 117/56 L 116/60 Pulse Oximetry 98 100 Intake & Output 07/19/18 07/20/18 07/20/18 18:59 06:59 18:59 Intake Total 1462.5 / 1462.5 1602.5 / 1602.5 Output Total 2500 / 2500 Balance -1037.5 / -1037.5 1602.5 / 1602.5 Weight 159 lb 9.835 oz Intake: IV 1462.5 / 1462.5 1362.5 / 1362.5 D5W/1/2 NS Inj 1,000 ML @ 75 1000 / 1000 1000 / 1000 mls/hr IV.CONT .[id number] ISIAH Rx# :[id number] Maxipime Inj 2,000 MG In NS Inj 100 / 100 100 / 100 100 ML @ 200 mls/hr IV.SIG Q12H ISIAH Rx#:[id number] KCl 20 mEq Premix Inj 20 meq In 100 / 100 100 ml @ 50 mls/hr IV.SIG Q2H ISIAH Rx#:[id number] Vancomycin Inj 1,250 MG In NS 262.5 / 262.5 262.5 / 262.5 Inj 250 ML @ 250 mls/hr IV.SIG Q12H ISIAH Rx#:[id number] Oral 240 / 240 Output: Urine 2500 / 2500 Other: # Voids 2 Date of Last Bowel Movement 07/19/18 07/19/18 # Bowel Movements 1 Result Diagrams: 07/20/18 07:03 07/20/18 07:03 Laboratory Results: Laboratory Results - last 24 hr 07/19/18 07/19/18 07/19/18 13:37 13:37 18:31 WBC 3.0 L D RBC 2.47 L Hgb 8.6 L Hct 24.4 L MCV 98.9 MCH 34.7 H MCHC 35.1 RDW 17.0 Plt Count 63 L D MPV 8.8 Prelim Diff (Auto) [employer] Neut % (Auto) 83.1 H Lymph % (Auto) 7.8 L [place] % (Auto) 8.0 Eos % (Auto) 0.3 Baso % (Auto) 0.8 Neut # (Auto) 2.5 Lymph # (Auto) 0.2 L [place] # (Auto) 0.2 Eos # (Auto) 0.0 Baso # (Auto) 0.0 WBC Differential . Seg Neuts % (Manual) Band Neuts % (Manual) Lymphocytes % (Manual) Monocytes % (Manual) Abs Neuts (Manual) Differential Comment Auto diff final Platelet Estimate Platelet Morphology Retic Count Absolute Retic Haptoglobin PT INR APTT Fibrinogen Sodium Potassium 3.9 D Chloride Carbon Dioxide Anion Gap BUN Creatinine Estimated GFR POC Glucose 142 H Random Glucose Calcium Magnesium Total Bilirubin AST ALT Alkaline Phosphatase Lactate Dehydrogenase Total Protein Albumin Bld Prod Order Comment 07/19/18 07/19/18 07/20/18 19:42 23:07 04:05 WBC RBC Hgb Hct MCV MCH MCHC RDW Plt Count MPV Prelim Diff (Auto) Neut % (Auto) Lymph % (Auto) [place] % (Auto) Eos % (Auto) Baso % (Auto) Neut # (Auto) Lymph # (Auto) [place] # (Auto) Eos # (Auto) Baso # (Auto) WBC Differential Seg Neuts % (Manual) Band Neuts % (Manual) Lymphocytes % (Manual) Monocytes % (Manual) Abs Neuts (Manual) Differential Comment Platelet Estimate Platelet Morphology Retic Count Absolute Retic Haptoglobin PT INR APTT Fibrinogen Sodium Potassium Chloride Carbon Dioxide Anion Gap BUN Creatinine Estimated GFR POC Glucose 117 H 99 123 H Random Glucose Calcium Magnesium Total Bilirubin AST ALT Alkaline Phosphatase Lactate Dehydrogenase Total Protein Albumin Bld Prod Order Comment 07/20/18 07/20/18 07/20/18 07:03 07:03 07:03 WBC 1.1 L D RBC 2.55 L Hgb 8.6 L Hct 25.7 L MCV 100.8 H MCH 33.8 MCHC 33.5 RDW 17.2 Plt Count 36 L D MPV 9.0 Prelim Diff (Auto) Slide review pending Neut % (Auto) 65.3 Lymph % (Auto) 26.3 [place] % (Auto) 4.7 Eos % (Auto) 3.0 Baso % (Auto) 0.7 Neut # (Auto) 0.7 L Lymph # (Auto) 0.3 L [place] # (Auto) 0.0 Eos # (Auto) 0.0 Baso # (Auto) 0.0 WBC Differential Manual diff final Seg Neuts % (Manual) 44 Band Neuts % (Manual) 19 H Lymphocytes % (Manual) 28 Monocytes % (Manual) 9 H Abs Neuts (Manual) 0.7 L Differential Comment . Platelet Estimate Low L Platelet Morphology Normal Retic Count Absolute Retic Haptoglobin 114 PT 11.2 INR 1.1 APTT 31.5 Fibrinogen 303 Sodium 143 Potassium 3.0 L D Chloride 106 Carbon Dioxide 30.3 Anion Gap 7 BUN 10 Creatinine 0.54 L Estimated GFR Greater than 89 POC Glucose Random Glucose 86 Calcium 8.6 D Magnesium 2.0 Total Bilirubin 0.5 AST 21 ALT 50 Alkaline Phosphatase 60 Lactate Dehydrogenase 297 H Total Protein 6.4 D Albumin 3.7 Bld Prod Order Comment 07/20/18 07/20/18 07/20/18 07:03 08:05 11:19 WBC RBC Hgb Hct MCV MCH MCHC RDW Plt Count MPV Prelim Diff (Auto) Neut % (Auto) Lymph % (Auto) [place] % (Auto) Eos % (Auto) Baso % (Auto) Neut # (Auto) Lymph # (Auto) [place] # (Auto) Eos # (Auto) Baso # (Auto) WBC Differential Seg Neuts % (Manual) Band Neuts % (Manual) Lymphocytes % (Manual) Monocytes % (Manual) Abs Neuts (Manual) Differential Comment Platelet Estimate Platelet Morphology Retic Count 2.7 Absolute Retic 66.4 Haptoglobin PT INR APTT Fibrinogen Sodium Potassium Chloride Carbon Dioxide Anion Gap BUN Creatinine Estimated GFR POC Glucose 76 Random Glucose Calcium Magnesium Total Bilirubin AST ALT Alkaline Phosphatase Lactate Dehydrogenase Total Protein Albumin Bld Prod Order Comment 07/20/18 12:01 WBC RBC Hgb Hct MCV MCH MCHC RDW Plt Count MPV Prelim Diff (Auto) Neut % (Auto) Lymph % (Auto) [place] % (Auto) Eos % (Auto) Baso % (Auto) Neut # (Auto) Lymph # (Auto) [place] # (Auto) Eos # (Auto) Baso # (Auto) WBC Differential Seg Neuts % (Manual) Band Neuts % (Manual) Lymphocytes % (Manual) Monocytes % (Manual) Abs Neuts (Manual) Differential Comment Platelet Estimate Platelet Morphology Retic Count Absolute Retic Haptoglobin PT INR APTT Fibrinogen Sodium Potassium Chloride Carbon Dioxide Anion Gap BUN Creatinine Estimated GFR POC Glucose 161 H Random Glucose Calcium Magnesium Total Bilirubin AST ALT Alkaline Phosphatase Lactate Dehydrogenase Total Protein Albumin Bld Prod Order Comment Culture Results: Microbiology 07/18/18 23:43 Aerobic Blood Culture - Preliminary Blood - Peripheral Staphylococcus coag positive Anaerobic Blood Culture - Preliminary Staphylococcus coag positive 07/18/18 23:15 Aerobic Blood Culture - Preliminary Blood - Peripheral S. aureus MRSA Enterococcus faecalis Anaerobic Blood Culture - Preliminary S. aureus MRSA Enterococcus faecalis 07/19/18 13:37 Aerobic Blood Culture - Preliminary Blood - Line No growth in 1 day Anaerobic Blood Culture - Preliminary No growth in 1 day 07/19/18 23:01 Streptococcus pneumoniae Antigen (M - Final Urine - Clean Catch Urine Presumptive negative for streptococcus pneumoniae antigen, suggesting no current or recent infection. Infection due to Streptococcus pneumoniae cannot be ruled out since the antigen present in the sample may be below the detection limit of the test. 07/19/18 23:01 Legionella Antigen - Final Urine - Clean Catch Urine Presumptive negative for Legionella pneumophila serogroup 1 antigen in urine, suggesting no recent or recurrent infection. Infection due to Legionella cannot be ruled out since other serogroups and species may cause disease, antigen may not be present in urine in early infection, and the level of antigen present in the urine may be below the detection limit of the test. 07/19/18 12:13 Stool Occult Blood (SONI) - Final Stool Hemoccult negative Medications: Active Medications Generic Name Dose Route Start Last Admin Trade Name Freq PRN Reason Stop Dose Admin Acetaminophen 650 mg 07/18/18 22:53 07/19/18 08:37 Tylenol Liq PO 650 mg Q6H PRN Administration temp > 100.4 Al Hydroxide/Mg Hydroxide 30 ml 06/30/18 11:38 07/07/18 15:45 Milk Of Magnesia Liq PO 30 ml Q12H PRN Administration Mild Constipation Albuterol 1 ampul 06/30/18 11:38 07/13/18 04:13 Duoneb Neb (Prn) NEB 1 ampul Q2HR NEB PRN Administration WHEEZING Dextrose 50 ml 06/30/18 11:44 07/14/18 21:14 D50w Vial IV.PUSH 50 ml UNSCH PRN Administration PER HYPOGLYCEMIA PROTOCOL Diphenhydramine HCl 25 mg 07/12/18 13:00 07/12/18 15:11 Benadryl Inj IV.PUSH 07/20/18 23:00 25 mg UNSCH PRN Administration ALLERGIC REACTION Fentanyl 1 patch 07/03/18 13:15 07/18/18 12:51 Duragesic 25 Mcg Patch.72hr T-DERMAL 1 patch Q72H ISIAH Administration Gabapentin 600 mg 07/18/18 18:00 07/20/18 09:22 Neurontin PO 600 mg QID ISIAH Administration Heparin Sodium (Porcine) 1,000 units 07/12/18 13:02 07/12/18 15:12 Heparin Inj IV.FLUSH 07/20/18 23:00 1,000 units UNSCH PRN Administration FLUSH AFTER USING IV ACCESS Hydrocortisone Acetate 20 mg 07/16/18 09:00 07/20/18 09:22 Cortef PO 20 mg TID ISIAH Administration Hydromorphone HCl 0.5 mg 07/19/18 12:00 07/20/18 10:34 Dilaudid Pf Inj IV.PUSH 0.5 mg Q2HR ISIAH Administration Dextrose/Sodium Chloride 1,000 mls @ 75 mls/hr 07/05/18 16:28 07/20/18 03:13 D5w/1/2 Ns Inj IV.CONT Not Given .[id number] ISIAH Vancomycin HCl 1,250 mg/ 262.5 mls @ 250 mls/hr 07/19/18 12:00 07/20/18 11:36 Sodium Chloride IV.SIG 250 mls/hr Q12H ISIAH Administration Cefepime HCl 2,000 mg/ Sodium 100 mls @ 200 mls/hr 07/19/18 11:00 07/20/18 10 :35 Chloride IV.SIG 100 mls/hr Q12H ISIAH Administration Insulin Human Regular 0 units 07/01/18 16:00 07/20/18 08:16 Novolin R Correctional Sugar Inj SQ Not Given Q4HR ISIAH Protocol Lactulose 30 ml 06/30/18 11:38 07/19/18 09:15 Lactulose Liq PO 30 ml DAILY PRN Administration SEVERE CONSITIPATION Levetiracetam 750 mg 07/03/18 21:00 07/20/18 09:22 Keppra PO 750 mg BID ISIAH Administration Levothyroxine Sodium 75 mcg 07/04/18 06:00 07/20/18 05:53 Synthroid PO 75 mcg DAILY@0600 ISIAH Administration Lorazepam 1 mg 07/09/18 23:04 07/20/18 12:02 Ativan Inj IV.PUSH 1 mg Q4H PRN Administration seizures/anxiety Morphine Sulfate 15 mg 07/03/18 11:38 07/20/18 12:03 Msir PO 15 mg Q4H PRN Administration PAIN SCALE 1 TO 10 Pantoprazole Sodium 40 mg 07/07/18 09:00 07/20/18 10:23 Protonix PO 40 mg DAILY ISIAH Administration Patch Removal 1 each 07/03/18 13:00 07/18/18 13:08 Remove Old Patch T-DERMAL 1 each Q72H ISIAH Administration Patch Removal 1 each 07/03/18 13:00 07/18/18 13:08 Remove Old Patch T-DERMAL 1 each Q72H ISIAH Administration Quetiapine Fumarate 400 mg 07/03/18 21:00 07/03/18 21:19 Seroquel PO Not Given BID ISIAH Quetiapine Fumarate 150 mg 07/11/18 22:00 07/19/18 20:29 Seroquel PO 150 mg HS ISIAH Administration Sodium Chloride 2 ml 06/30/18 09:58 07/16/18 20:56 Ns Flush IV.FLUSH 2 ml PRN PRN Administration FLUSH AFTER USING IV ACCESS Sodium Citrate 1,000 ml 07/12/18 12:45 07/16/18 12:11 Acd-A Solution EXTRACORPO 07/20/18 13:00 1,000 ml Q48H ISIAH Administration Tizanidine HCl 4 mg 07/18/18 12:45 07/20/18 09:22 Zanaflex PO 4 mg Q6HR PRN Administration MUSCLE SPASM Whey 1 packet 07/10/18 21:00 07/20/18 10:35 Beneprotein Powder G-TUBE Not Given BID ISIAH Objective Remarks: GENERAL: Chronically ill-appearing young male patient, in no acute distress. SKIN: Warm and dry. HEAD: Normocephalic. EYES: No scleral icterus. No injection or drainage. NECK: Supple, trachea midline. Vas-cath to right neck. Collection bag to left neck. CARDIOVASCULAR: Regular rate and rhythm without murmurs. RESPIRATORY: Posterior breath sounds distant equal bilaterally. Nonlabored. GASTROINTESTINAL: Abdomen non-tender, nondistended. peg tube with TF. EXTREMITIES: No cyanosis, or edema. Lft leg greater strength than rt. MUSCULOSKELETAL: Decreased muscle tone. NEUROLOGICAL: No obvious focal deficit. Awake, alert, and oriented x3. 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 Oncology consulted for further recommendations. 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 Plasma phoresis EOD x's 5 treatments. The patient received 3 out of 5 however developed significant pancytopenia with fever and plasma exchange has been placed on hold. 2. Pancytopenia slightly worse today. Neutropenic precautions are in place. This is likely multifactorial due to splenomegaly, side effect of medications. 3. We will plan to begin Neupogen if ANC drops less than 0.5. No need for transfusion unless hemoglobin drops less than 7 or if he has any bleeding. Hematology will continue to follow. - Attending Statement Pt doing better. Walking with walker. Remains afebrile. Pallor present. Improving motor power. No evidence of infection at right neck Vascath site or PICC line left arm. Reviewed blood test results with pt. Start neupogen if ANC <500. Will follow up. Care discussed with [facility] P[facility].
--- NOTE | 2018-07-20 12:57 | P.PNNEU ---
Subjective Subjective Comments: Pt feels strength is improving after 3 plasma pheresis I spoke with Dr Garcia at the [facility] neurology and reviewed the case with him. He felt the therapy and evaluation was appropriate and is what they would have done at [facility] and felt he would have no other therapy to offer from the neurologic standpoint Active Medications: Active Medications Acetaminophen (Tylenol Liq) 650 mg PO Q6H PRN PRN Reason: temp > 100.4 Last Admin: 07/19/18 08:37 Dose: 650 mg Al Hydroxide/Mg Hydroxide (Milk Of Magnesia Liq) 30 ml PO Q12H PRN PRN Reason: Mild Constipation Last Admin: 07/07/18 15:45 Dose: 30 ml Albuterol (Duoneb Neb (Prn)) 1 ampul NEB Q2HR NEB PRN PRN Reason: WHEEZING Last Admin: 07/13/18 04:13 Dose: 1 ampul Bisacodyl (Dulcolax Supp) 10 mg RECTAL DAILY PRN PRN Reason: SEVERE CONSITIPATION Dextrose (D50w Vial) 50 ml IV.PUSH UNSCH PRN PRN Reason: PER HYPOGLYCEMIA PROTOCOL Last Admin: 07/14/18 21:14 Dose: 50 ml Diphenhydramine HCl (Benadryl Inj) 25 mg IV.PUSH UNSCH PRN PRN Reason: ALLERGIC REACTION Stop: 07/20/18 23:00 Last Admin: 07/12/18 15:11 Dose: 25 mg Famotidine (Pepcid Pf Inj) 20 mg IV.PUSH UNSCH PRN PRN Reason: SEE LABEL COMMENTS Stop: 07/20/18 13:01 Fentanyl (Duragesic 25 Mcg Patch.72hr) 1 patch T-DERMAL Q72H [facility] Last Admin: 07/18/18 12:51 Dose: 1 patch Gabapentin (Neurontin) 600 mg PO QID [facility] Last Admin: 07/20/18 09:22 Dose: 600 mg Glucagon (Glucagon Inj) 1 mg OTHER PRN PRN PRN Reason: for Hypoglycemia Protocol Heparin Sodium (Porcine) (Heparin Central Flush) 0 unit IV.FLUSH DAILY PRN PRN Reason: SEE DOSE INSTRUCTIONS Heparin Sodium (Porcine) (Heparin Inj) 1,000 units IV.FLUSH UNSCH PRN PRN Reason: FLUSH AFTER USING IV ACCESS Stop: 07/20/18 23:00 Last Admin: 07/12/18 15:12 Dose: 1,000 units Hydrocortisone Acetate (Cortef) 20 mg PO TID [facility] Last Admin: 07/20/18 09:22 Dose: 20 mg Hydromorphone HCl (Dilaudid Pf Inj) 0.5 mg IV.PUSH Q2HR [facility] Last Admin: 07/20/18 10:34 Dose: 0.5 mg Dextrose/Sodium Chloride (D5w/1/2 Ns Inj) 1,000 mls @ 75 mls/hr IV.CONT .[id number] [facility] Last Admin: 07/20/18 03:13 Dose: Not Given Vancomycin HCl 1,250 mg/ (Sodium Chloride) 262.5 mls @ 250 mls/hr IV.SIG Q12H [facility] Last Admin: 07/20/18 11:36 Dose: 250 mls/hr Cefepime HCl 2,000 mg/ Sodium (Chloride) 100 mls @ 200 mls/hr IV.SIG Q12H [facility] Last Admin: 07/20/18 10:35 Dose: 100 mls/hr Potassium Chloride (Kcl 20 Meq Premix Inj) 20 meq in 100 mls @ 50 mls/hr IV.SIG ONCE ONE Stop: 07/20/18 13:59 Potassium Chloride (Kcl 20 Meq Premix Inj) 20 meq in 100 mls @ 50 mls/hr IV.SIG ONCE ONE Stop: 07/20/18 15:59 Sodium Chloride (Ns Inj) 250 mls @ 15 mls/hr IV.SIG ONCE [facility] Stop: 07/21/18 04:39 Insulin Human Regular (Novolin R Correctional Sugar Inj) 0 units SQ Q4HR [facility]; Protocol Last Admin: 07/20/18 08:16 Dose: Not Given Lactulose (Lactulose Liq) 30 ml PO DAILY PRN PRN Reason: SEVERE CONSITIPATION Last Admin: 07/19/18 09:15 Dose: 30 ml Levetiracetam (Keppra) 750 mg PO BID [facility] Last Admin: 07/20/18 09:22 Dose: 750 mg Levothyroxine Sodium (Synthroid) 75 mcg PO DAILY@0600 [facility] Last Admin: 07/20/18 05:53 Dose: 75 mcg Lorazepam (Ativan Inj) 1 mg IV.PUSH Q4H PRN PRN Reason: seizures/anxiety Last Admin: 07/20/18 12:02 Dose: 1 mg Miscellaneous Information ([facility] Ordered Lab Info) 0 each OTHER ONCE ONE Stop: 07/20/18 23:46 Morphine Sulfate (Msir) 15 mg PO Q4H PRN PRN Reason: PAIN SCALE 1 TO 10 Last Admin: 07/20/18 12:03 Dose: 15 mg Pantoprazole Sodium (Protonix) 40 mg PO DAILY [facility] Last Admin: 07/20/18 10:23 Dose: 40 mg Patch Removal (Remove Old Patch) 1 each T-DERMAL Q72H [facility] Last Admin: 07/18/18 13:08 Dose: 1 each Patch Removal (Remove Old Patch) 1 each T-DERMAL Q72H [facility] Last Admin: 07/18/18 13:08 Dose: 1 each Pharmacy Profile Note (Vancomycin Consult Pharmacy) 1 each OTHER UNSCH PRN PRN Reason: Pharmacy to dose Quetiapine Fumarate (Seroquel) 400 mg PO BID [facility] Last Admin: 07/03/18 21:19 Dose: Not Given Quetiapine Fumarate (Seroquel) 150 mg PO HS [facility] Last Admin: 07/19/18 20:29 Dose: 150 mg Sennosides (Senokot) 17.2 mg PO Q12H PRN PRN Reason: Moderate Constipation Sodium Chloride (Ns Flush) 2 ml IV.FLUSH PRN PRN PRN Reason: FLUSH AFTER USING IV ACCESS Last Admin: 07/16/18 20:56 Dose: 2 ml Sodium Chloride (Ns Flush) 0 ml IV.FLUSH PRN PRN PRN Reason: SEE DOSE INSTRUCTIONS Sodium Citrate (Acd-A Solution) 1,000 ml EXTRACORPO Q48H [facility] Stop: 07/20/18 13:00 Last Admin: 07/16/18 12:11 Dose: 1,000 ml Tizanidine HCl (Zanaflex) 4 mg PO Q6HR PRN PRN Reason: MUSCLE SPASM Last Admin: 07/20/18 09:22 Dose: 4 mg Whey (Beneprotein Powder) 1 packet G-TUBE BID [facility] Last Admin: 07/20/18 10:35 Dose: Not Given Allergies/Adverse Reactions: Allergies Allergy/AdvReac Type Severity Reaction Status Date / Time codeine Allergy Severe Hives Unverified 06/30/18 10:28 tramadol Allergy Severe seizure Unverified 08/04/17 18:49 cyclobenzaprine Allergy Unknown Unresponsiv Verified 06/30/18 10:28 e fluvoxamine Allergy Unknown Unresponsiv Verified 06/30/18 10:28 e zolpidem Allergy Unknown Unconscious Verified 06/30/18 10:28 Beta-Blockers Allergy Anaphylaxis Verified 06/30/18 10:28 (Beta-Adrenergic Bloc MRI PRECAUTION AdvReac Severe NON REVO Uncoded 08/04/17 18:49 PACEMAKER Physical Exam Vital signs: Vital Signs 07/19/18 16:00 07/19/18 20:00 07/20/18 00:00 Temperature 97.5 F L 97.8 F 97.5 F L Pulse Rate 74 69 73 Respiratory Rate 18 18 18 Blood Pressure 114/58 L 93/52 L 102/53 L Pulse Oximetry 98 98 100 07/20/18 04:00 07/20/18 08:00 Temperature 98.5 F 97.4 F L Pulse Rate 85 104 H Respiratory Rate 18 20 Blood Pressure 117/56 L 116/60 Pulse Oximetry 98 100 Intake & Output 07/19/18 07/20/18 07/20/18 18:59 06:59 18:59 Intake Total 1462.5 / 1462.5 1602.5 / 1602.5 Output Total 2500 / 2500 Balance -1037.5 / -1037.5 1602.5 / 1602.5 Weight 72.4 kg Intake: IV 1462.5 / 1462.5 1362.5 / 1362.5 D5W/1/2 NS Inj 1,000 ML @ 75 1000 / 1000 1000 / 1000 mls/hr IV.CONT .[id number] [facility] Rx# :[id number] Maxipime Inj 2,000 MG In NS Inj 100 / 100 100 / 100 100 ML @ 200 mls/hr IV.SIG Q12H [facility] Rx#:[id number] KCl 20 mEq Premix Inj 20 meq In 100 / 100 100 ml @ 50 mls/hr IV.SIG Q2H [facility] Rx#:[id number] Vancomycin Inj 1,250 MG In NS 262.5 / 262.5 262.5 / 262.5 Inj 250 ML @ 250 mls/hr IV.SIG Q12H [facility] Rx#:[id number] Oral 240 / 240 Output: Urine 2500 / 2500 Other: # Voids 2 Date of Last Bowel Movement 12/28/18 12/28/18 # Bowel Movements 1 - Routine Neurological Exam alert, CN intact MOTOR 5/5 BUe, 4/5 BLE Objective Laboratory Results - last 24 hr 07/19/18 07/19/18 07/19/18 13:37 13:37 18:31 WBC 3.0 L D RBC 2.47 L Hgb 8.6 L Hct 24.4 L MCV 98.9 MCH 34.7 H MCHC 35.1 RDW 17.0 Plt Count 63 L D MPV 8.8 Prelim Diff (Auto) Powder Carrier Neut % (Auto) 83.1 H Lymph % (Auto) 7.8 L [place] % (Auto) 8.0 Eos % (Auto) 0.3 Baso % (Auto) 0.8 Neut # (Auto) 2.5 Lymph # (Auto) 0.2 L [place] # (Auto) 0.2 Eos # (Auto) 0.0 Baso # (Auto) 0.0 WBC Differential . Seg Neuts % (Manual) Band Neuts % (Manual) Lymphocytes % (Manual) Monocytes % (Manual) Abs Neuts (Manual) Differential Comment Auto diff final Platelet Estimate Platelet Morphology Retic Count Absolute Retic Haptoglobin PT INR APTT Fibrinogen Sodium Potassium 3.9 D Chloride Carbon Dioxide Anion Gap BUN Creatinine Estimated GFR POC Glucose 142 H Random Glucose Calcium Magnesium Total Bilirubin AST ALT Alkaline Phosphatase Lactate Dehydrogenase Total Protein Albumin Bld Prod Order Comment 07/19/18 07/19/18 07/20/18 19:42 23:07 04:05 WBC RBC Hgb Hct MCV MCH MCHC RDW Plt Count MPV Prelim Diff (Auto) Neut % (Auto) Lymph % (Auto) [place] % (Auto) Eos % (Auto) Baso % (Auto) Neut # (Auto) Lymph # (Auto) [place] # (Auto) Eos # (Auto) Baso # (Auto) WBC Differential Seg Neuts % (Manual) Band Neuts % (Manual) Lymphocytes % (Manual) Monocytes % (Manual) Abs Neuts (Manual) Differential Comment Platelet Estimate Platelet Morphology Retic Count Absolute Retic Haptoglobin PT INR APTT Fibrinogen Sodium Potassium Chloride Carbon Dioxide Anion Gap BUN Creatinine Estimated GFR POC Glucose 117 H 99 123 H Random Glucose Calcium Magnesium Total Bilirubin AST ALT Alkaline Phosphatase Lactate Dehydrogenase Total Protein Albumin Bld Prod Order Comment 07/20/18 07/20/18 07/20/18 07:03 07:03 07:03 WBC 1.1 L D RBC 2.55 L Hgb 8.6 L Hct 25.7 L MCV 100.8 H MCH 33.8 MCHC 33.5 RDW 17.2 Plt Count 36 L D MPV 9.0 Prelim Diff (Auto) Slide review pending Neut % (Auto) 65.3 Lymph % (Auto) 26.3 [place] % (Auto) 4.7 Eos % (Auto) 3.0 Baso % (Auto) 0.7 Neut # (Auto) 0.7 L Lymph # (Auto) 0.3 L [place] # (Auto) 0.0 Eos # (Auto) 0.0 Baso # (Auto) 0.0 WBC Differential Manual diff final Seg Neuts % (Manual) 44 Band Neuts % (Manual) 19 H Lymphocytes % (Manual) 28 Monocytes % (Manual) 9 H Abs Neuts (Manual) 0.7 L Differential Comment . Platelet Estimate Low L Platelet Morphology Normal Retic Count Absolute Retic Haptoglobin 114 PT 11.2 INR 1.1 APTT 31.5 Fibrinogen 303 Sodium 143 Potassium 3.0 L D Chloride 106 Carbon Dioxide 30.3 Anion Gap 7 BUN 10 Creatinine 0.54 L Estimated GFR Greater than 89 POC Glucose Random Glucose 86 Calcium 8.6 D Magnesium 2.0 Total Bilirubin 0.5 AST 21 ALT 50 Alkaline Phosphatase 60 Lactate Dehydrogenase 297 H Total Protein 6.4 D Albumin 3.7 Bld Prod Order Comment 07/20/18 07/20/18 07/20/18 07:03 08:05 11:19 WBC RBC Hgb Hct MCV MCH MCHC RDW Plt Count MPV Prelim Diff (Auto) Neut % (Auto) Lymph % (Auto) [place] % (Auto) Eos % (Auto) Baso % (Auto) Neut # (Auto) Lymph # (Auto) [place] # (Auto) Eos # (Auto) Baso # (Auto) WBC Differential Seg Neuts % (Manual) Band Neuts % (Manual) Lymphocytes % (Manual) Monocytes % (Manual) Abs Neuts (Manual) Differential Comment Platelet Estimate Platelet Morphology Retic Count 2.7 Absolute Retic 66.4 Haptoglobin PT INR APTT Fibrinogen Sodium Potassium Chloride Carbon Dioxide Anion Gap BUN Creatinine Estimated GFR POC Glucose 76 Random Glucose Calcium Magnesium Total Bilirubin AST ALT Alkaline Phosphatase Lactate Dehydrogenase Total Protein Albumin Bld Prod Order Comment 07/20/18 12:01 WBC RBC Hgb Hct MCV MCH MCHC RDW Plt Count MPV Prelim Diff (Auto) Neut % (Auto) Lymph % (Auto) [place] % (Auto) Eos % (Auto) Baso % (Auto) Neut # (Auto) Lymph # (Auto) [place] # (Auto) Eos # (Auto) Baso # (Auto) WBC Differential Seg Neuts % (Manual) Band Neuts % (Manual) Lymphocytes % (Manual) Monocytes % (Manual) Abs Neuts (Manual) Differential Comment Platelet Estimate Platelet Morphology Retic Count Absolute Retic Haptoglobin PT INR APTT Fibrinogen Sodium Potassium Chloride Carbon Dioxide Anion Gap BUN Creatinine Estimated GFR POC Glucose 161 H Random Glucose Calcium Magnesium Total Bilirubin AST ALT Alkaline Phosphatase Lactate Dehydrogenase Total Protein Albumin Bld Prod Order Comment Microbiology 07/18/18 23:43 Aerobic Blood Culture - Preliminary Blood - Peripheral Staphylococcus coag positive Anaerobic Blood Culture - Preliminary Staphylococcus coag positive 07/18/18 23:15 Aerobic Blood Culture - Preliminary Blood - Peripheral S. aureus MRSA Enterococcus faecalis Anaerobic Blood Culture - Preliminary S. aureus MRSA Enterococcus faecalis 07/19/18 13:37 Aerobic Blood Culture - Preliminary Blood - Line No growth in 1 day Anaerobic Blood Culture - Preliminary No growth in 1 day 07/19/18 23:01 Streptococcus pneumoniae Antigen (M - Final Urine - Clean Catch Urine Presumptive negative for streptococcus pneumoniae antigen, suggesting no current or recent infection. Infection due to Streptococcus pneumoniae cannot be ruled out since the antigen present in the sample may be below the detection limit of the test. 07/19/18 23:01 Legionella Antigen - Final Urine - Clean Catch Urine Presumptive negative for Legionella pneumophila serogroup 1 antigen in urine, suggesting no recent or recurrent infection. Infection due to Legionella cannot be ruled out since other serogroups and species may cause disease, antigen may not be present in urine in early infection, and the level of antigen present in the urine may be below the detection limit of the test. 07/19/18 12:13 Stool Occult Blood ([facility]) - Final Stool Hemoccult negative Review/Management - Diagnosis (1) Myelopathy Code(s): G95.9 - Disease of spinal cord, unspecified Status: Acute Current Visit: Yes - Review/Management Plan: continue with plasmapheresis for total of 5 treatments when able to given his pancytopenia. continue higher gabapentin dose since this is helping his neuropathic pain
[2018-07-20] MEDS: Anticoagulant Citrate Dextrose 1,000 ML Solution EXTRACORPO SCH (13:25)
--- NOTE | 2018-07-20 13:27 | P.PNIM ---
Subjective Interval history: Patient seen and evaluated this morning at bedside. Patient has remained afebrile for slightly over 24 hours at this point since broadening his antibiotics. Neurology discussed case with [facility] and at this time there is no plan to transfer the patient. We will hold off on further plasmapheresis over this weekend to monitor patient's clinical course. K of 3.0 --> supplementation ordered. no diarrhea guaic was collected as per patient And was negative Physical Exam Vital signs: Last Vital Signs Temp 98 F 07/20/18 12:00 Pulse 102 H 07/20/18 12:00 Resp 18 07/20/18 12:00 BP 117/59 L 07/20/18 12:00 Pulse Ox 99 07/20/18 12:00 Intake & Output 07/18/18 07/19/18 07/20/18 07/21/18 06:59 06:59 06:59 06:59 Intake Total 1550 / 1550 3573 / 3573 3065.0 / 3065.0 624.5 / 624.5 Output Total 3625 / 3625 3180 / 3180 2500 / 2500 Balance -2075 / -2075 393 / 393 565.0 / 565.0 624.5 / 624.5 Weight 72.5 kg 72.5 kg 72.4 kg General: No acute distress, conversational HEENT: No tender submandibular or sublingual lymph nodes. Cardiovascular: S1/S2. No tachycardia noted Respiratory: Clear to auscultation anteriorly and posteriorly without intercostal muscle use Gastroenterology: Soft, nontender, nondistended, no guarding rebound appreciated. Positive bowel sounds. PEG site appears clean dry and intact Extremity: No lower extremity edema. Muscle atrophy noted Extremities: 2+ right upper extremity radial pulse Results Labs CBC & Chem 7: 07/20/18 07:03 07/20/18 07:03 Labs: Microbiology 07/18/18 23:43 Blood - Peripheral Aerobic Blood Culture - Preliminary Staphylococcus coag positive 07/18/18 23:43 Blood - Peripheral Anaerobic Blood Culture - Preliminary Staphylococcus coag positive 07/18/18 23:15 Blood - Peripheral Aerobic Blood Culture - Preliminary S. aureus MRSA Enterococcus faecalis 07/18/18 23:15 Blood - Peripheral Anaerobic Blood Culture - Preliminary S. aureus MRSA Enterococcus faecalis 07/19/18 13:37 Blood - Line Aerobic Blood Culture - Preliminary No growth in 1 day 07/19/18 13:37 Blood - Line Anaerobic Blood Culture - Preliminary No growth in 1 day 07/19/18 23:01 Urine - Clean Catch Urine Streptococcus pneumoniae Antigen ( M - Final Presumptive negative for streptococcus pneumoniae antigen, suggesting no current or recent infection. Infection due to Streptococcus pneumoniae cannot be ruled out since the antigen present in the sample may be below the detection limit of the test. 07/19/18 23:01 Urine - Clean Catch Urine Legionella Antigen - Final Presumptive negative for Legionella pneumophila serogroup 1 antigen in urine, suggesting no recent or recurrent infection. Infection due to Legionella cannot be ruled out since other serogroups and species may cause disease, antigen may not be present in urine in early infection, and the level of antigen present in the urine may be below the detection limit of the test. 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 Previously discussed with patient outpatient doctor regarding transitioning to oral diet considering past history of Boerhaave syndrome and at this time it is recommended against oral feeding. Continue physical therapy. Rehab Hematology consulted and following actively - BM biopsy records obtained and in chart Neurology input appreciated previously Status post lumbar puncture 07/08. CT MR spine - And thoracic MRI also unremarkable.Check fibrinogen level, CBC, chemistry level and coagulations. - Platelet 2 unit today - dilaudid .5mg IV q2 ( pt not new to opoids and takes oral outpatient) Infectious disease: Neutropenic fever Vancomycin 1.25 g every 12 and cefepime 2 g every 12 BCx: NGTD - if patient spikes again today will re-culture Nephrology: Hypokalemia Supplement potassium Endocrinology: Adrenal insufficiency Oral hydrocortisone 20 mg 3 times daily. 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 Ornelas [phone]. Neurology: History seizure disorder Continue Keppra and gabapentin 600 TID. PRN EEG reviewed and no focal abnormality and no seizures noted. Cardiology: Bradycardia Patient with [employer] pacer Gastroenterology: Patient with history of Boerhaave syndrome with split fistula esophagectomy. Patient outpatient surgeon recommended against oral feeding at this time - Surgeon; Dr. Rudi Medina [phone]/ Soniya BREAUX [phone]). - Previous J-tube placement. Hepatitis profile: + Hep C Ig ab US abdomen: Hepatosplenomegaly On Protonix 40 mg p.o. for GI prophylaxis Continue tube feeds via J-tube change to [place] with goal rate 70ml/hr DVT prophylaxis: SCD GI prophylaxis: Protonix 40 mg daily Progress Note: Quality VTE Deep Vein Thrombosis/Pulmonary Embolism Present on Admission: No
--- NOTE | 2018-07-20 19:31 | P.CONID ---
History of Present Illness Service: ID Consult date: 07/20/18 Requesting Physician: Kal Joy Reason for Consult: 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 on vanco/cefipime now. 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 He has cardiac pacemaker 2/2 bradycardia He was diagnosed with GBS abnd placed on plasmopheresis He had tunneled Permacath placed for plasmapheresis on 07/12 He dvelopped pancytopenia, he has ANC of 700 today 2 days asgo had fever up to 102, BC with MRSA 4/4 bottles and Ent fecalis 2/4 bottles in diffetrent sets He reportsd negative HIV tests x2 , one about 2 weeks ago IgG low < 500 PMFSH - History History Provided By: Medical Record - Medical History Medical History: Medical History (Last Reviewed 07/18/18 @ 08:47 by Isabell Su) Adrenal insufficiency Anxiety Bradycardia Compression fracture Difficult intubation Esophageal rupture Fistula History of MRSA infection Onset Date: ~06/30/18 Hypoglycemia Liver disease PTSD (post-traumatic stress disorder) Pacemaker Seizure TIA (transient ischemic attack) - Tobacco History Second Hand Smoke Exposure: Yes Tobacco Use In Past 30 Days: Yes Smoking Status: Current every day smoker Tobacco Type: Cigarettes - Alcohol History How Often Do You Have a Drink Containing Alcohol: Never - Substance Use History Substance History: No History of Abuse - Travel History Recent Travel in the [place] Within the Last 8 Weeks: No Recent Travel Out of the Country Within the Last 8 Weeks: No - Immunization History Tetanus Immunization: Unsure Hx Influenza Vaccine This Season: No Medications and Allergies Active Medications: Active Medications Acetaminophen (Tylenol Liq) 650 mg PO Q6H PRN PRN Reason: temp > 100.4 Last Admin: 07/19/18 08:37 Dose: 650 mg Al Hydroxide/Mg Hydroxide (Milk Of Magnesia Liq) 30 ml PO Q12H PRN PRN Reason: Mild Constipation Last Admin: 07/07/18 15:45 Dose: 30 ml Albuterol (Duoneb Neb (Prn)) 1 ampul NEB Q2HR NEB PRN PRN Reason: WHEEZING Last Admin: 07/13/18 04:13 Dose: 1 ampul Bisacodyl (Dulcolax Supp) 10 mg RECTAL DAILY PRN PRN Reason: SEVERE CONSITIPATION Dextrose (D50w Vial) 50 ml IV.PUSH UNSCH PRN PRN Reason: PER HYPOGLYCEMIA PROTOCOL Last Admin: 07/14/18 21:14 Dose: 50 ml Diphenhydramine HCl (Benadryl Inj) 25 mg IV.PUSH UNSCH PRN PRN Reason: ALLERGIC REACTION Stop: 07/20/18 23:00 Last Admin: 07/12/18 15:11 Dose: 25 mg Fentanyl (Duragesic 25 Mcg Patch.72hr) 1 patch T-DERMAL Q72H [facility] Last Admin: 07/18/18 12:51 Dose: 1 patch Gabapentin (Neurontin) 600 mg PO QID [facility] Last Admin: 07/20/18 19:08 Dose: 600 mg Glucagon (Glucagon Inj) 1 mg OTHER PRN PRN PRN Reason: for Hypoglycemia Protocol Heparin Sodium (Porcine) (Heparin Central Flush) 0 unit IV.FLUSH DAILY PRN PRN Reason: SEE DOSE INSTRUCTIONS Heparin Sodium (Porcine) (Heparin Inj) 1,000 units IV.FLUSH UNSCH PRN PRN Reason: FLUSH AFTER USING IV ACCESS Stop: 07/20/18 23:00 Last Admin: 07/12/18 15:12 Dose: 1,000 units Hydrocortisone Acetate (Cortef) 20 mg PO TID [facility] Last Admin: 07/20/18 19:09 Dose: 20 mg Hydromorphone HCl (Dilaudid Pf Inj) 0.5 mg IV.PUSH Q2HR [facility] Last Admin: 07/20/18 19:10 Dose: 0.5 mg Dextrose/Sodium Chloride (D5w/1/2 Ns Inj) 1,000 mls @ 75 mls/hr IV.CONT .[id number] [facility] Last Admin: 07/20/18 03:13 Dose: Not Given Vancomycin HCl 1,250 mg/ (Sodium Chloride) 262.5 mls @ 250 mls/hr IV.SIG Q12H [facility] Last Infusion: 07/20/18 13:00 Dose: Infused Sodium Chloride (Ns Inj) 250 mls @ 15 mls/hr IV.SIG ONCE [facility] Stop: 07/21/18 04:39 Cefepime HCl 2,000 mg/ Sodium (Chloride) 100 mls @ 200 mls/hr IV.SIG Q8H [facility] Insulin Human Regular (Novolin R Correctional Sugar Inj) 0 units SQ Q4HR [facility]; Protocol Last Admin: 07/20/18 13:00 Dose: Not Given Lactulose (Lactulose Liq) 30 ml PO DAILY PRN PRN Reason: SEVERE CONSITIPATION Last Admin: 07/19/18 09:15 Dose: 30 ml Levetiracetam (Keppra) 750 mg PO BID [facility] Last Admin: 07/20/18 09:22 Dose: 750 mg Levothyroxine Sodium (Synthroid) 75 mcg PO DAILY@0600 [facility] Last Admin: 07/20/18 05:53 Dose: 75 mcg Lorazepam (Ativan Inj) 1 mg IV.PUSH Q4H PRN PRN Reason: seizures/anxiety Last Admin: 07/20/18 16:01 Dose: 1 mg Miscellaneous Information ([facility] Ordered Lab Info) 0 each OTHER ONCE ONE Stop: 07/20/18 23:46 Morphine Sulfate (Msir) 15 mg PO Q4H PRN PRN Reason: PAIN SCALE 1 TO 10 Last Admin: 07/20/18 16:02 Dose: 15 mg Pantoprazole Sodium (Protonix) 40 mg PO DAILY [facility] Last Admin: 07/20/18 10:23 Dose: 40 mg Patch Removal (Remove Old Patch) 1 each T-DERMAL Q72H [facility] Last Admin: 07/18/18 13:08 Dose: 1 each Patch Removal (Remove Old Patch) 1 each T-DERMAL Q72H [facility] Last Admin: 07/18/18 13:08 Dose: 1 each Pharmacy Profile Note (Vancomycin Consult Pharmacy) 1 each OTHER UNSCH PRN PRN Reason: Pharmacy to dose Quetiapine Fumarate (Seroquel) 400 mg PO BID [facility] Last Admin: 07/03/18 21:19 Dose: Not Given Quetiapine Fumarate (Seroquel) 150 mg PO HS [facility] Last Admin: 07/19/18 20:29 Dose: 150 mg Sennosides (Senokot) 17.2 mg PO Q12H PRN PRN Reason: Moderate Constipation Sodium Chloride (Ns Flush) 2 ml IV.FLUSH PRN PRN PRN Reason: FLUSH AFTER USING IV ACCESS Last Admin: 07/16/18 20:56 Dose: 2 ml Sodium Chloride (Ns Flush) 0 ml IV.FLUSH PRN PRN PRN Reason: SEE DOSE INSTRUCTIONS Tizanidine HCl (Zanaflex) 4 mg PO Q6HR PRN PRN Reason: MUSCLE SPASM Last Admin: 07/20/18 19:09 Dose: 4 mg Whey (Beneprotein Powder) 1 packet G-TUBE BID [facility] Last Admin: 07/20/18 10:35 Dose: Not Given Allergies Allergy/AdvReac Type Severity Reaction Status Date / Time codeine Allergy Severe Hives Unverified 06/30/18 10:28 tramadol Allergy Severe seizure Unverified 08/04/17 18:49 cyclobenzaprine Allergy Unknown Unresponsiv Verified 06/30/18 10:28 e fluvoxamine Allergy Unknown Unresponsiv Verified 06/30/18 10:28 e zolpidem Allergy Unknown Unconscious Verified 06/30/18 10:28 Beta-Blockers Allergy Anaphylaxis Verified 06/30/18 10:28 (Beta-Adrenergic Bloc MRI PRECAUTION AdvReac Severe NON REVO Uncoded 08/04/17 18:49 PACEMAKER Home Medications Medication Instructions Recorded Confirmed Type albuterol sulfate [Proventil HFA] INHALATION Q3-4H PRN 06/30/18 History fentanyl 1 patch TRANSDERMAL Q72H 06/30/18 06/30/18 History gabapentin 300 mg PO TID 06/30/18 06/30/18 History levetiracetam [Keppra] 750 mg PO BID 06/30/18 06/30/18 History levothyroxine [Synthroid] 75 mcg PO DAILY 06/30/18 06/30/18 History lorazepam [Ativan] 1 mg PO BID 06/30/18 06/30/18 History morphine 15 mg PO Q4-6H PRN 06/30/18 06/30/18 History quetiapine [Seroquel] 400 mg PO BID 06/30/18 06/30/18 History Exam Vital signs: Vital Signs 07/19/18 20:00 07/20/18 00:00 07/20/18 04:00 Temperature 97.8 F 97.5 F L 98.5 F Pulse Rate 69 73 85 Respiratory Rate 18 18 18 Blood Pressure 93/52 L 102/53 L 117/56 L Pulse Oximetry 98 100 98 07/20/18 08:00 07/20/18 12:00 07/20/18 16:10 Temperature 97.4 F L 98 F 98.0 F Pulse Rate 104 H 102 H 86 Respiratory Rate 20 18 18 Blood Pressure 116/60 117/59 L Pulse Oximetry 100 99 98 07/20/18 16:26 Temperature 98.0 F Pulse Rate 74 Respiratory Rate 20 Blood Pressure 115/57 L Pulse Oximetry 97 Intake & Output 07/20/18 07/20/18 07/21/18 06:59 18:59 06:59 Intake Total 1602.5 / 1602.5 724.5 / 724.5 Output Total 2200 / 2200 Balance 1602.5 / 1602.5 -1475.5 / -1475.5 Intake: IV 1362.5 / 1362.5 724.5 / 724.5 D5W/1/2 NS Inj 1,000 ML @ 75 1000 / 1000 mls/hr IV.CONT .[id number] [facility] Rx# :[id number] Maxipime Inj 2,000 MG In NS Inj 100 / 100 100 / 100 100 ML @ 200 mls/hr IV.SIG Q12H [facility] Rx#:[id number] KCl 20 mEq Premix Inj 20 meq In 100 / 100 100 ml @ 50 mls/hr IV.SIG ONCE ONE Rx#:[id number] Vancomycin Inj 1,250 MG In NS 262.5 / 262.5 524.5 / 524.5 Inj 250 ML @ 250 mls/hr IV.SIG Q12H [facility] Rx#:[id number] Oral 240 / 240 Intake (Blood Product) Amt 0 / 0 Plt Pheresis A Leukoreduced 0 / 0 Unit [id number] Output: Urine 2200 / 2200 Other: # Voids 2 Date of Last Bowel Movement 07/19/18 07/19/18 # Bowel Movements 1 - Constitutional no acute distress, thin - Routine HEENT Exam Head: Present: normocephalic, atraumatic Eye: Present: EOMI, PERRL ENT: Present: mucous membranes moist, oropharynx clear - Routine Neck Exam Present: supple, lymphadenopathy Comments: wound with purulent bloody dc from the L anterior neck - Routine Chest/Breast/Axilla Exam Chest wall: Present: pacemaker (L chest in place, looks ok) Comments: tunneled IJ in place R chest, site unremarkable - Routine Respiratory Exam Present: CTA bilaterally. Absent: accessory muscle use, decreased breath sounds - Routine Cardiovascular Exam Present: RRR, S1, S2. Absent: murmur, gallop - Routine Abdominal Exam Present: soft, normoactive bowel sounds. Absent: tenderness, distended - Routine Extremities Exam Present: full ROM. Absent: cyanosis, clubbing, edema - Routine Skin Exam Present: pallor. Absent: intact, cyanosis, erythema - Routine Neurological Exam Present: alert, oriented X3, CN II-XII intact, motor deficit (decreased BLE ), abnormal gait (uses walker). Absent: sensory deficit - Routine Psychiatric Exam Present: normal affect, cooperative Results - Labs CBC & Chem 7: 07/20/18 07:03 07/20/18 07:03 Labs: Laboratory Results - last 24 hr 07/19/18 07/19/18 07/20/18 19:42 23:07 04:05 WBC RBC Hgb Hct MCV MCH MCHC RDW Plt Count MPV Prelim Diff (Auto) Neut % (Auto) Lymph % (Auto) [place] % (Auto) Eos % (Auto) Baso % (Auto) Neut # (Auto) Lymph # (Auto) [place] # (Auto) Eos # (Auto) Baso # (Auto) WBC Differential Seg Neuts % (Manual) Band Neuts % (Manual) Lymphocytes % (Manual) Monocytes % (Manual) Abs Neuts (Manual) Differential Comment Platelet Estimate Platelet Morphology Retic Count Absolute Retic Haptoglobin PT INR APTT Fibrinogen Sodium Potassium Chloride Carbon Dioxide Anion Gap BUN Creatinine Estimated GFR POC Glucose 117 H 99 123 H Random Glucose Calcium Magnesium Total Bilirubin AST ALT Alkaline Phosphatase Lactate Dehydrogenase Total Protein Albumin Bld Prod Order Comment 07/20/18 07/20/18 07/20/18 07:03 07:03 07:03 WBC 1.1 L D RBC 2.55 L Hgb 8.6 L Hct 25.7 L MCV 100.8 H MCH 33.8 MCHC 33.5 RDW 17.2 Plt Count 36 L D MPV 9.0 Prelim Diff (Auto) Slide review pending Neut % (Auto) 65.3 Lymph % (Auto) 26.3 [place] % (Auto) 4.7 Eos % (Auto) 3.0 Baso % (Auto) 0.7 Neut # (Auto) 0.7 L Lymph # (Auto) 0.3 L [place] # (Auto) 0.0 Eos # (Auto) 0.0 Baso # (Auto) 0.0 WBC Differential Manual diff final Seg Neuts % (Manual) 44 Band Neuts % (Manual) 19 H Lymphocytes % (Manual) 28 Monocytes % (Manual) 9 H Abs Neuts (Manual) 0.7 L Differential Comment . Platelet Estimate Low L Platelet Morphology Normal Retic Count Absolute Retic Haptoglobin 114 PT 11.2 INR 1.1 APTT 31.5 Fibrinogen 303 Sodium 143 Potassium 3.0 L D Chloride 106 Carbon Dioxide 30.3 Anion Gap 7 BUN 10 Creatinine 0.54 L Estimated GFR Greater than 89 POC Glucose Random Glucose 86 Calcium 8.6 D Magnesium 2.0 Total Bilirubin 0.5 AST 21 ALT 50 Alkaline Phosphatase 60 Lactate Dehydrogenase 297 H Total Protein 6.4 D Albumin 3.7 Bld Prod Order Comment 07/20/18 07/20/18 07/20/18 07:03 08:05 11:19 WBC RBC Hgb Hct MCV MCH MCHC RDW Plt Count MPV Prelim Diff (Auto) Neut % (Auto) Lymph % (Auto) [place] % (Auto) Eos % (Auto) Baso % (Auto) Neut # (Auto) Lymph # (Auto) [place] # (Auto) Eos # (Auto) Baso # (Auto) WBC Differential Seg Neuts % (Manual) Band Neuts % (Manual) Lymphocytes % (Manual) Monocytes % (Manual) Abs Neuts (Manual) Differential Comment Platelet Estimate Platelet Morphology Retic Count 2.7 Absolute Retic 66.4 Haptoglobin PT INR APTT Fibrinogen Sodium Potassium Chloride Carbon Dioxide Anion Gap BUN Creatinine Estimated GFR POC Glucose 76 Random Glucose Calcium Magnesium Total Bilirubin AST ALT Alkaline Phosphatase Lactate Dehydrogenase Total Protein Albumin Bld Prod Order Comment 07/20/18 07/20/18 12:01 17:04 WBC RBC Hgb Hct MCV MCH MCHC RDW Plt Count MPV Prelim Diff (Auto) Neut % (Auto) Lymph % (Auto) [place] % (Auto) Eos % (Auto) Baso % (Auto) Neut # (Auto) Lymph # (Auto) [place] # (Auto) Eos # (Auto) Baso # (Auto) WBC Differential Seg Neuts % (Manual) Band Neuts % (Manual) Lymphocytes % (Manual) Monocytes % (Manual) Abs Neuts (Manual) Differential Comment Platelet Estimate Platelet Morphology Retic Count Absolute Retic Haptoglobin PT INR APTT Fibrinogen Sodium Potassium Chloride Carbon Dioxide Anion Gap BUN Creatinine Estimated GFR POC Glucose 161 H 106 Random Glucose Calcium Magnesium Total Bilirubin AST ALT Alkaline Phosphatase Lactate Dehydrogenase Total Protein Albumin Bld Prod Order Comment - Imaging Abdomen Ultrasound 06/30/18 00:00 CONCLUSION: 1. The kidneys demonstrate increased echogenicity concerning for medical renal disease. 2. Hepatosplenomegaly. 3. Right pleural effusion. Chest X-Ray 06/30/18 09:59 CONCLUSION: Interval elevation of the left hemidiaphragm compared to previous study in 2017 Minimal left basilar airspace disease Otherwise stable chest. Head CT 06/30/18 09:59 CONCLUSION: 1. Negative CT Head non contrast. 2. Stable exam without evidence of acute infarct, hemorrhage, mass or edema. . Cervical Spine CT 07/02/18 00:00 CONCLUSION: 1. No acute bony abnormalities within the cervical spine. No canal stenosis identified. 2. Soft tissue swelling of the left neck with small radiopaque foreign bodies in the subcutaneous tissues and locules of air, possibly related to fistulous tract. Thoracic Spine CT 07/02/18 00:00 CONCLUSION: 1. Mild kyphosis. 2. Mild loss of height of several lower thoracic vertebral bodies, stable. 3. No acute compression fracture. Head CT 07/02/18 14:12 CONCLUSION: 1. Stable negative noncontrast CT. . Head MRI 07/03/18 07:05 CONCLUSION: 1. Unremarkable MRI of the brain. Cervical Spine MRI 07/03/18 07:07 CONCLUSION: 1. Focal mild right lateral bulging at C5-6. 2. Otherwise, unremarkable exam for patient's age. Thoracic Spine MRI 07/03/18 07:07 CONCLUSION: 1. Mild broad-based bulging at T10-T11. 2. Mild disc space narrowing from T3 through T7. 3. Mild chronic loss of height of T9, T10 and T11. No abnormal bone marrow signal. Chest CT 07/04/18 00:00 CONCLUSION: 1. No evidence of Pancoast tumor as questioned. 2. Stable 4 mm nodule in the superior segment of the right lower lobe. Routine follow-up of sub-6 mm nodules is not recommended per 2017 Fleischner material. This nodule has been essentially stable for 18 months. 3. Small right and trace left simple appearing pleural effusions. Soft Tissue Neck CT 07/04/18 00:00 CONCLUSION: 1. I do not see evidence for esophageal rupture. Lumbar Puncture Fluoroscopy 07/08/18 00:00 CONCLUSION: Uncomplicated fluoroscopically guided lumbar puncture. Catheter Placement 07/11/18 00:00 CONCLUSION: 1. Uncomplicated line placement as above. Barium Swallow X-Ray 07/12/18 00:00 CONCLUSION: No evidence of penetration of the supraglottic larynx or tracheal aspiration with multiple swallows of thin barium. Chest X-Ray 07/18/18 00:00 CONCLUSION: 1. Mild patchy bilateral nonspecific airspace opacities as described. 2. Elevated left hemidiaphragm again noted. 3. Normal, stable heart size. Cardiac pacer again noted. 4. Right IJ line with distal tip in the right atrium. Assessment and Plan - Plan Mult med prob Fistula post esophagectomy GBS, on plasmapheresis MRSA sepsis, high grade, new Ent fecalis sepsis Netropenia Netropenic fever will consult IR to remove permacth For plasmapheresis will need to use Vascath cont vancomycin 2 D echo repeat BC cont cefepime, start micafungin
[2018-07-20] MEDS: QUEtiapine 100 MG Tablet PO SCH (21:05)
[2018-07-20] MEDS: Micafungin Inj 150 MG in Sodium Chlor 0.9% Inj 100 ML IV.SIG SCH (21:14)
[2018-07-20] MEDS ORDERED: Pharmacy Ordered Lab Info OTHER ONE (23:45)
[2018-07-21] MEDS: HYDROmorphone PF Inj 0.5 MG/0.5 ML Syringe IV.PUSH SCH ×12 (01:18→22:15)
[2018-07-21] MEDS: Insulin NovoLIN Regular Correctional Sugar Inj SQ SCH ×6 (01:18→20:31)
[2018-07-21] MEDS: Dextrose 5%/NaCl 0.45% Inj 1,000 ML IV.CONT SCH ×3 (01:19→18:56)
[2018-07-21] MEDS: Morphine Sulfate 15 MG IR Tablet PO PRN ×2 (03:56→08:16)
[2018-07-21] MEDS: Levothyroxine 75 MCG Tablet PO SCH (06:45)
[2018-07-21] MEDS: Gabapentin 300 MG Capsule PO SCH ×4 (08:15→20:25)
[2018-07-21] MEDS: levETIRAcetam 250 MG Tablet PO SCH ×2 (08:16→20:24)
[2018-07-21] MEDS: Hydrocortisone 10 MG Tablet PO SCH ×3 (08:18→17:18)
[2018-07-21] MEDS: Beneprotein Powder Packet G-TUBE SCH ×2 (08:19→20:31)
[2018-07-21 08:49] LABS: Baso % (Auto) 0.4 % (0.0-2.0); Eos % (Auto) 2.1 % (0.0-4.0); Hematocrit 26.1 % (39.0-51.0); Hemoglobin 8.8 gm/dL (13.0-17.0); Lymph # (Auto) 0.6 th/mm3 (1.0-4.8); Lymph % (Auto) 29.3 % (9.0-44.0); Mean Corpuscular HGB Conc 33.6 % (32.0-36.0); Mean Corpuscular Hemoglobin 33.3 pg (27.0-34.0); Mean Corpuscular Volume 99.2 fL (80.0-100.0); Mean Platelet Volume 9.1 fL (7.0-11.0); Mono # (Auto) 0.1 th/mm3 (0.0-0.9); Mono % (Auto) 6.9 % (0.0-8.0); Neut # (Auto) 1.2 th/mm3 (1.8-7.7); Neut % (Auto) 61.3 % (16.0-70.0); Platelet Count 78 th/mm3 (150-450); Red Blood Count 2.63 mil/mm3 (4.50-5.90); Red Cell Distribution Width 16.4 % (11.6-17.2); White Blood Count 1.9 th/mm3 (4.0-11.0)
[2018-07-21 09:37] LABS: Eosinophils 3 % (0-4); Lymphocytes 31 % (9-44); Monocytes 5 % (0-8)
[2018-07-21 09:38] LABS: Platelet Morphology Normal (Normal)
--- NOTE | 2018-07-21 09:46 | P.PNONC ---
Subjective Interval history: Afebrile Patient reports he is concerned with his blood infection Afraid he will as he states everyone he has ever known with a blood infection has No bleeding Objective Vital Signs/Intake & Output: Vital Signs 07/20/18 12:00 07/20/18 16:00 07/20/18 16:10 Temperature 98 F 98.0 F Pulse Rate 99 H 92 H 86 Respiratory Rate 18 18 Blood Pressure 117/59 L Pulse Oximetry 99 98 07/20/18 16:26 07/20/18 20:00 07/20/18 23:37 Temperature 98.0 F 97.6 F Pulse Rate 74 84 89 Respiratory Rate 20 16 20 Blood Pressure 115/57 L 112/59 L 130/76 Pulse Oximetry 97 98 07/21/18 00:00 07/21/18 04:00 07/21/18 08:00 Temperature 99.3 F 98.0 F 98.1 F Pulse Rate 98 H 87 87 Respiratory Rate 17 17 18 Blood Pressure 139/73 123/68 130/66 Pulse Oximetry 100 100 100 Intake & Output 07/20/18 07/21/18 07/21/18 18:59 06:59 18:59 Intake Total 1824.5 / 1824.5 1282.5 / 1282.5 Output Total 2200 / 2200 800 / 800 Balance -375.5 / -375.5 482.5 / 482.5 Weight 161 lb 13.109 oz Intake: IV 1824.5 / 1824.5 562.5 / 562.5 D5W/1/2 NS Inj 1,000 ML @ 75 1000 / 1000 mls/hr IV.CONT .[id number] [facility] Rx# :[id number] Maxipime Inj 2,000 MG In NS Inj 100 / 100 200 / 200 100 ML @ 200 mls/hr IV.SIG Q8H [facility] Rx#:[id number] Mycamine Inj 150 MG In NS Inj 100 / 100 100 ML @ 100 mls/hr IV.SIG Q24H [facility] Rx#:[id number] KCl 20 mEq Premix Inj 20 meq In 200 / 200 100 ml @ 50 mls/hr IV.SIG ONCE ONE Rx#:[id number] Vancomycin Inj 1,250 MG In NS 524.5 / 524.5 262.5 / 262.5 Inj 250 ML @ 250 mls/hr IV.SIG Q12H [facility] Rx#:[id number] Oral 720 / 720 Intake (Blood Product) Amt 0 / 0 0 / 0 Plt Pheresis A Leukoreduced 0 / 0 Unit [id number] Plt Pheresis A Leukoreduced 0 / 0 0 / 0 Unit [id number] Output: Urine 2200 / 2200 800 / 800 Other: Date of Last Bowel Movement 07/19/18 07/19/18 07/19/18 # Bowel Movements 1 0 Result Diagrams: 07/21/18 06:46 07/20/18 07:03 Laboratory Results: Laboratory Results - last 24 hr 07/20/18 07/20/18 07/20/18 07:03 11:19 12:01 WBC RBC Hgb Hct MCV MCH MCHC RDW Plt Count MPV Prelim Diff (Auto) Neut % (Auto) Lymph % (Auto) [place] % (Auto) Eos % (Auto) Baso % (Auto) Neut # (Auto) Lymph # (Auto) [place] # (Auto) Eos # (Auto) Baso # (Auto) Differential Comment POC Glucose 161 H Procalcitonin 0.52 H Vancomycin Trough Bld Prod Order Comment 07/20/18 07/20/18 07/20/18 17:04 20:13 23:45 WBC RBC Hgb Hct MCV MCH MCHC RDW Plt Count MPV Prelim Diff (Auto) Neut % (Auto) Lymph % (Auto) [place] % (Auto) Eos % (Auto) Baso % (Auto) Neut # (Auto) Lymph # (Auto) [place] # (Auto) Eos # (Auto) Baso # (Auto) Differential Comment POC Glucose 106 107 Procalcitonin Vancomycin Trough 9.9 Bld Prod Order Comment 07/21/18 07/21/18 07/21/18 03:05 06:46 08:15 WBC 1.9 L D RBC 2.63 L Hgb 8.8 L Hct 26.1 L MCV 99.2 MCH 33.3 MCHC 33.6 RDW 16.4 Plt Count 78 L D MPV 9.1 Prelim Diff (Auto) Slide review pending Neut % (Auto) 61.3 Lymph % (Auto) 29.3 [place] % (Auto) 6.9 Eos % (Auto) 2.1 Baso % (Auto) 0.4 Neut # (Auto) 1.2 L Lymph # (Auto) 0.6 L [place] # (Auto) 0.1 Eos # (Auto) 0.0 Baso # (Auto) 0.0 Differential Comment . POC Glucose 108 95 Procalcitonin Vancomycin Trough Bld Prod Order Comment Culture Results: Microbiology 07/18/18 23:43 Aerobic Blood Culture - Preliminary Blood - Peripheral Staphylococcus coag positive Anaerobic Blood Culture - Preliminary Staphylococcus coag positive 07/18/18 23:15 Aerobic Blood Culture - Preliminary Blood - Peripheral S. aureus MRSA Enterococcus faecalis Anaerobic Blood Culture - Preliminary S. aureus MRSA Enterococcus faecalis 07/19/18 13:37 Aerobic Blood Culture - Preliminary Blood - Line No growth in 1 day Anaerobic Blood Culture - Preliminary No growth in 1 day 07/19/18 23:01 Streptococcus pneumoniae Antigen (M - Final Urine - Clean Catch Urine Presumptive negative for streptococcus pneumoniae antigen, suggesting no current or recent infection. Infection due to Streptococcus pneumoniae cannot be ruled out since the antigen present in the sample may be below the detection limit of the test. 07/19/18 23:01 Legionella Antigen - Final Urine - Clean Catch Urine Presumptive negative for Legionella pneumophila serogroup 1 antigen in urine, suggesting no recent or recurrent infection. Infection due to Legionella cannot be ruled out since other serogroups and species may cause disease, antigen may not be present in urine in early infection, and the level of antigen present in the urine may be below the detection limit of the test. 07/19/18 12:13 Stool Occult Blood (SONI) - Final Stool Hemoccult negative Medications: Active Medications Generic Name Dose Route Start Last Admin Trade Name Freq PRN Reason Stop Dose Admin Acetaminophen 650 mg 07/18/18 22:53 07/19/18 08:37 Tylenol Liq PO 650 mg Q6H PRN Administration temp > 100.4 Al Hydroxide/Mg Hydroxide 30 ml 06/30/18 11:38 07/07/18 15:45 Milk Of Magnesia Liq PO 30 ml Q12H PRN Administration Mild Constipation Albuterol 1 ampul 06/30/18 11:38 07/13/18 04:13 Duoneb Neb (Prn) NEB 1 ampul Q2HR NEB PRN Administration WHEEZING Dextrose 50 ml 06/30/18 11:44 07/14/18 21:14 D50w Vial IV.PUSH 50 ml UNSCH PRN Administration PER HYPOGLYCEMIA PROTOCOL Fentanyl 1 patch 07/03/18 13:15 07/18/18 12:51 Duragesic 25 Mcg Patch.72hr T-DERMAL 1 patch Q72H [facility] Administration Gabapentin 600 mg 07/18/18 18:00 07/21/18 08:15 Neurontin PO 600 mg QID [facility] Administration Hydrocortisone Acetate 20 mg 07/16/18 09:00 07/21/18 08:18 Cortef PO 20 mg TID [facility] Administration Hydromorphone HCl 0.5 mg 07/19/18 12:00 07/21/18 06:45 Dilaudid Pf Inj IV.PUSH 0.5 mg Q2HR [facility] Administration Dextrose/Sodium Chloride 1,000 mls @ 75 mls/hr 07/05/18 16:28 07/21/18 06:55 D5w/1/2 Ns Inj IV.CONT Not Given .[id number] [facility] Cefepime HCl 2,000 mg/ Sodium 100 mls @ 200 mls/hr 07/20/18 20:00 07/21/18 05 :00 Chloride IV.SIG Infused Q8H [facility] Infusion Micafungin Sodium 150 mg/ 100 mls @ 100 mls/hr 07/20/18 20:00 07/20/18 22:53 Sodium Chloride IV.SIG Infused Q24H [facility] Infusion Insulin Human Regular 0 units 07/01/18 16:00 07/21/18 04:10 Novolin R Correctional Sugar Inj SQ Not Given Q4HR [facility] Protocol Lactulose 30 ml 06/30/18 11:38 07/19/18 09:15 Lactulose Liq PO 30 ml DAILY PRN Administration SEVERE CONSITIPATION Levetiracetam 750 mg 07/03/18 21:00 07/21/18 08:16 Keppra PO 750 mg BID [facility] Administration Levothyroxine Sodium 75 mcg 07/04/18 06:00 07/21/18 06:45 Synthroid PO 75 mcg DAILY@0600 [facility] Administration Lorazepam 1 mg 07/09/18 23:04 07/21/18 08:17 Ativan Inj IV.PUSH 1 mg Q4H PRN Administration seizures/anxiety Morphine Sulfate 15 mg 07/03/18 11:38 07/21/18 08:16 Msir PO 15 mg Q4H PRN Administration PAIN SCALE 1 TO 10 Pantoprazole Sodium 40 mg 07/07/18 09:00 07/21/18 08:16 Protonix PO 40 mg DAILY [facility] Administration Patch Removal 1 each 07/03/18 13:00 07/18/18 13:08 Remove Old Patch T-DERMAL 1 each Q72H [facility] Administration Patch Removal 1 each 07/03/18 13:00 07/18/18 13:08 Remove Old Patch T-DERMAL 1 each Q72H [facility] Administration Quetiapine Fumarate 400 mg 07/03/18 21:00 07/03/18 21:19 Seroquel PO Not Given BID [facility] Quetiapine Fumarate 150 mg 07/11/18 22:00 07/20/18 21:05 Seroquel PO 150 mg HS [facility] Administration Sodium Chloride 2 ml 06/30/18 09:58 07/20/18 21:07 Ns Flush IV.FLUSH 2 ml PRN PRN Administration FLUSH AFTER USING IV ACCESS Tizanidine HCl 4 mg 07/18/18 12:45 07/21/18 06:45 Zanaflex PO 4 mg Q6HR PRN Administration MUSCLE SPASM Whey 1 packet 07/10/18 21:00 07/21/18 08:19 Beneprotein Powder G-TUBE Not Given BID [facility] Objective Remarks: GENERAL: Chronically ill-appearing young male patient, in no acute distress. SKIN: Warm and dry. HEAD: Normocephalic. EYES: No scleral icterus. No injection or drainage. NECK: Supple, trachea midline. Vas-cath to right neck. Collection bag to left neck. CARDIOVASCULAR: Regular rate and rhythm without murmurs. RESPIRATORY: Posterior breath sounds distant equal bilaterally. Nonlabored. GASTROINTESTINAL: Abdomen non-tender, nondistended. peg tube with TF. EXTREMITIES: No cyanosis, or edema. Lft leg greater strength than rt. MUSCULOSKELETAL: Decreased muscle tone. NEUROLOGICAL: No obvious focal deficit. Awake, alert, and oriented x3. 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 Oncology consulted for further recommendations. 1. Guillan [place] syndrome syndrome: followed by neurology service. Plasma phoresis EOD x's 5 treatments. The patient received 3 out of 5 however developed significant pancytopenia with fever and plasma exchange has been placed on hold. 2. Platelet count increased to 78,000 today. ANC improved as well to 1.2. 3. We will check coag studies today. If fibrinogen is less than 100 we will plan to transfuse cryoprecipitate. 4. CBC in a.m. If platelet count greater than 50,000 plan to continue with plasmapheresis number 4 out of 5 tomorrow.
--- NOTE | 2018-07-21 11:18 | P.PNIM ---
Subjective Interval history: The patient was resting comfortably in bed. He was wondering if he could have his p.o. morphine changed to p.o. Dilaudid. He was worried about the atrophy in his legs. He said overall he was getting better. Discussed with his mother over the phone. Physical Exam Vital signs: Last Vital Signs Temp 98.1 F 07/21/18 08:00 Pulse 87 07/21/18 08:00 Resp 18 07/21/18 08:00 BP 130/66 07/21/18 08:00 Pulse Ox 100 07/21/18 08:00 Intake & Output 07/19/18 07/20/18 07/21/18 07/22/18 06:59 06:59 06:59 06:59 Intake Total 3573 / 3573 3065.0 / 3065.0 3107.0 / 3107.0 Output Total 3180 / 3180 2500 / 2500 3000 / 3000 Balance 393 / 393 565.0 / 565.0 107.0 / 107.0 Weight 72.5 kg 72.4 kg 73.4 kg Narrative: GENERAL: Well-nourished pleasant male in no acute distress SKIN: Warm and dry. HEAD: Atraumatic. Normocephalic. EYES: Right pupil dilated 4cm, left 2cm. No scleral icterus. No injection or drainage. ENT: No nasal bleeding or discharge. Mucous membranes pink and moist. NECK: Trachea midline. No JVD. spit fistula esophagectomy with ostomy bag in place CARDIOVASCULAR: Tachycardic. RESPIRATORY: No accessory muscle use. Clear to auscultation. Breath sounds equal bilaterally. GASTROINTESTINAL: Abdomen soft, non-tender, nondistended. PEG tube in place, normoactive bowel sounds MUSCULOSKELETAL: Extremities without clubbing, cyanosis, or edema. No obvious deformities. NEUROLOGICAL: Awake and alert to person place time situation; motor strength 3/ 5 LLE and not much movement in the right lower extremity and cannot dorsiflex. Bilateral upper extremity 5 out of 5 motor strength. Normal speech. . Results Labs CBC & Chem 7: 07/21/18 06:46 07/20/18 07:03 Labs: Microbiology 07/19/18 13:37 Blood - Line Aerobic Blood Culture - Preliminary No growth in 2 days 07/19/18 13:37 Blood - Line Anaerobic Blood Culture - Preliminary No growth in 2 days 07/18/18 23:15 Blood - Peripheral Aerobic Blood Culture - Final S. aureus MRSA Enterococcus faecalis 07/18/18 23:15 Blood - Peripheral Anaerobic Blood Culture - Final S. aureus MRSA Enterococcus faecalis 07/18/18 23:43 Blood - Peripheral Aerobic Blood Culture - Final S. aureus MRSA 07/18/18 23:43 Blood - Peripheral Anaerobic Blood Culture - Final S. aureus MRSA 07/19/18 23:01 Urine - Clean Catch Urine Streptococcus pneumoniae Antigen ( M - Final Presumptive negative for streptococcus pneumoniae antigen, suggesting no current or recent infection. Infection due to Streptococcus pneumoniae cannot be ruled out since the antigen present in the sample may be below the detection limit of the test. 07/19/18 23:01 Urine - Clean Catch Urine Legionella Antigen - Final Presumptive negative for Legionella pneumophila serogroup 1 antigen in urine, suggesting no recent or recurrent infection. Infection due to Legionella cannot be ruled out since other serogroups and species may cause disease, antigen may not be present in urine in early infection, and the level of antigen present in the urine may be below the detection limit of the test. 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 Will consult design sales consultant for updated tube feeding recommendations. Previously discussed with patient outpatient doctor regarding transitioning to oral diet considering past history of Boerhaave syndrome and at this time it is recommended against oral feeding. Continue physical therapy. Rehab. Hematology consulted and following actively - BM biopsy records obtained and in chart Neurology input appreciated previously Status post lumbar puncture 07/08. CT MR spine and thoracic MRI also unremarkable.Check fibrinogen level, CBC, chemistry level and coagulations. - s/p platelets, 2 units. - Dilaudid .5mg IV q2 ( pt not new to opoids and takes oral outpatient). Change morphine IR to PO Dilaudid. Bacteremia/Neutropenic fever Vancomycin 1.25 g every 12 and cefepime 2 g every 12 and micafungin. BCx: growing MRSA and enterococcus. ID consult appreciated. -follow repeat blood cultures. -IR consulted for removal of tunneled IJ. Nephrology: Hypokalemia Supplement potassium and monitor. Adrenal insufficiency Oral hydrocortisone 20 mg 3 times daily. Patient outpatient letterer Dr. Ornelas . Neurology: History seizure disorder Continue Keppra and gabapentin 600 TID. PRN EEG reviewed and no focal abnormality and no seizures noted. Cardiology: Bradycardia Patient with [employer] pacer Gastroenterology: Patient with history of Boerhaave syndrome with split fistula esophagectomy. Patient outpatient surgeon recommended against oral feeding at this time - Surgeon; Dr. Rudi Medina [phone]/ Soniya BREAUX [phone]). - Previous J-tube placement. Hepatitis profile: + Hep C Ig ab US abdomen: Hepatosplenomegaly On Protonix 40 mg p.o. for GI prophylaxis Continue tube feeds via J-tube change to [place] with goal rate 70ml/hr DVT prophylaxis: SCD GI prophylaxis: Protonix 40 mg daily Progress Note: Quality VTE Deep Vein Thrombosis/Pulmonary Embolism Present on Admission: No
[2018-07-21 11:57] LABS: Activated Partial Thrombo Time 31.9 sec (23.4-31.7)
[2018-07-21] MEDS: Vancomycin Inj 1,500 MG in Sodium Chlor 0.9% Inj 500 ML IV.SIG SCH (12:01)
[2018-07-21] MEDS: QUEtiapine 100 MG Tablet PO SCH (20:24)
[2018-07-21] MEDS: Micafungin Inj 150 MG in Sodium Chlor 0.9% Inj 100 ML IV.SIG SCH (20:32)
[2018-07-22] MEDS: Vancomycin Inj 1,500 MG in Sodium Chlor 0.9% Inj 500 ML IV.SIG SCH ×3 (00:09→23:48)
[2018-07-22] MEDS: HYDROmorphone PF Inj 0.5 MG/0.5 ML Syringe IV.PUSH SCH ×13 (00:09→23:53)
[2018-07-22] MEDS: Insulin NovoLIN Regular Correctional Sugar Inj SQ SCH ×7 (00:19→23:53)
[2018-07-22] MEDS: Levothyroxine 75 MCG Tablet PO SCH (05:54)
[2018-07-22 08:27] LABS: Baso % (Auto) 0.6 % (0.0-2.0); Eos # (Auto) 0.1 th/mm3 (0.0-0.4); Eos % (Auto) 2.8 % (0.0-4.0); Hematocrit 23.9 % (39.0-51.0); Hemoglobin 8.1 gm/dL (13.0-17.0); Lymph # (Auto) 0.8 th/mm3 (1.0-4.8); Lymph % (Auto) 35.6 % (9.0-44.0); Mean Corpuscular HGB Conc 33.7 % (32.0-36.0); Mean Corpuscular Hemoglobin 33.2 pg (27.0-34.0); Mean Corpuscular Volume 98.3 fL (80.0-100.0); Mean Platelet Volume 9.1 fL (7.0-11.0); Mono # (Auto) 0.3 th/mm3 (0.0-0.9); Mono % (Auto) 11.3 % (0.0-8.0); Neut # (Auto) 1.2 th/mm3 (1.8-7.7); Neut % (Auto) 49.7 % (16.0-70.0); Platelet Count 101 th/mm3 (150-450); Red Blood Count 2.43 mil/mm3 (4.50-5.90); Red Cell Distribution Width 16.1 % (11.6-17.2); White Blood Count 2.3 th/mm3 (4.0-11.0)
[2018-07-22] MEDS: levETIRAcetam 250 MG Tablet PO SCH ×2 (08:27→21:20)
[2018-07-22] MEDS: Gabapentin 300 MG Capsule PO SCH ×4 (08:27→21:20)
[2018-07-22] MEDS: Hydrocortisone 10 MG Tablet PO SCH ×3 (08:27→17:25)
[2018-07-22] MEDS: Dextrose 5%/NaCl 0.45% Inj 1,000 ML IV.CONT SCH ×3 (08:29→22:02)
[2018-07-22] MEDS: Beneprotein Powder Packet G-TUBE SCH ×2 (08:33→21:30)
[2018-07-22 08:56] LABS: Anion Gap 9 meq/L (5-15); Blood Urea Nitrogen 5 mg/dL (7-18); Calcium 8.6 mg/dL (8.5-10.1); Chloride 105 meq/L (98-107); Glomerular Filtration Rate Greater Than 89 mL/min (>89); Glucose,Random 92 mg/dL (74-106); Magnesium 2.1 mg/dL (1.5-2.5); Potassium 3.3 meq/L (3.5-5.1); Sodium 141 meq/L (136-145)
--- NOTE | 2018-07-22 09:13 | P.PNONC ---
Subjective Interval history: Patient sitting in bed, in no acute distress. Updated on plan. Will have Vas-Cath removed and replaced today. Will resume plasmapheresis treatment #4 of 5 after a Vas-Cath if this replaced. Called and spoke with dialysis. Updated RN. Patient remains in pain, "all over", RN giving pain medication at this time. Objective Vital Signs/Intake & Output: Vital Signs 07/21/18 12:00 07/21/18 16:00 07/21/18 20:00 Temperature 98.2 F 97.9 F 98.2 F Pulse Rate 106 H 91 H 71 Respiratory Rate 18 18 17 Blood Pressure 144/72 H 158/72 H 127/72 Pulse Oximetry 100 100 99 07/22/18 00:00 07/22/18 04:00 07/22/18 08:00 Temperature 97.8 F 97.9 F 97.9 F Pulse Rate 96 H 82 77 Respiratory Rate 20 18 18 Blood Pressure 133/78 136/73 133/65 Pulse Oximetry 98 97 99 Intake & Output 07/21/18 07/22/18 07/22/18 18:59 06:59 18:59 Intake Total 1615 / 1615 2130 / 2130 641 / 641 Output Total 1999 / 1999 600 / 600 Balance -385 / -385 1530 / 1530 641 / 641 Weight 70.3 kg Intake: IV 1615 / 1615 1330 / 1330 641 / 641 D5W/1/2 NS Inj 1,000 ML @ 75 1000 / 1000 641 / 641 mls/hr IV.CONT .[id number] [facility] Rx# :[id number] Maxipime Inj 2,000 MG In NS Inj 100 / 100 200 / 200 100 ML @ 200 mls/hr IV.SIG Q8H [facility] Rx#:[id number] Mycamine Inj 150 MG In NS Inj 100 / 100 100 ML @ 100 mls/hr IV.SIG Q24H [facility] Rx#:[id number] Vancomycin Inj 1,500 MG In NS 515 / 515 1030 / 1030 Inj 500 ML @ 250 mls/hr IV.SIG Q12H [facility] Rx#:[id number] Oral 800 / 800 Output: Urine 1999 / 1999 600 / 600 Other: # Voids 4 Date of Last Bowel Movement 07/19/18 07/19/18 # Bowel Movements 0 Result Diagrams: 07/22/18 07:26 07/20/18 07:03 Laboratory Results: Laboratory Results - last 24 hr 07/21/18 07/21/18 07/21/18 06:46 06:46 11:14 WBC 1.9 L D RBC 2.63 L Hgb 8.8 L Hct 26.1 L MCV 99.2 MCH 33.3 MCHC 33.6 RDW 16.4 Plt Count 78 L D MPV 9.1 Prelim Diff (Auto) Slide review pending Neut % (Auto) 61.3 Lymph % (Auto) 29.3 [place] % (Auto) 6.9 Eos % (Auto) 2.1 Baso % (Auto) 0.4 Neut # (Auto) 1.2 L Lymph # (Auto) 0.6 L [place] # (Auto) 0.1 Eos # (Auto) 0.0 Baso # (Auto) 0.0 WBC Differential Manual diff final Seg Neuts % (Manual) 49 Band Neuts % (Manual) 11 H Lymphocytes % (Manual) 31 Monocytes % (Manual) 5 Eosinophils % (Manual) 3 Basophils % (Manual) 1 Abs Neuts (Manual) 1.1 L Differential Comment . Platelet Estimate Low L Platelet Morphology Normal APTT 31.9 H Fibrinogen 285 POC Glucose Folate Greater than 20.0 H 07/21/18 07/21/18 07/21/18 11:59 16:34 19:43 WBC RBC Hgb Hct MCV MCH MCHC RDW Plt Count MPV Prelim Diff (Auto) Neut % (Auto) Lymph % (Auto) [place] % (Auto) Eos % (Auto) Baso % (Auto) Neut # (Auto) Lymph # (Auto) [place] # (Auto) Eos # (Auto) Baso # (Auto) WBC Differential Seg Neuts % (Manual) Band Neuts % (Manual) Lymphocytes % (Manual) Monocytes % (Manual) Eosinophils % (Manual) Basophils % (Manual) Abs Neuts (Manual) Differential Comment Platelet Estimate Platelet Morphology APTT Fibrinogen POC Glucose 127 H 113 H 113 H Folate 07/22/18 07/22/18 07/22/18 00:19 07:26 07:44 WBC 2.3 L RBC 2.43 L Hgb 8.1 L Hct 23.9 L MCV 98.3 MCH 33.2 MCHC 33.7 RDW 16.1 Plt Count 101 L MPV 9.1 Prelim Diff (Auto) Neut % (Auto) 49.7 Lymph % (Auto) 35.6 [place] % (Auto) 11.3 H Eos % (Auto) 2.8 Baso % (Auto) 0.6 Neut # (Auto) 1.2 L Lymph # (Auto) 0.8 L [place] # (Auto) 0.3 Eos # (Auto) 0.1 Baso # (Auto) 0.0 WBC Differential . Seg Neuts % (Manual) Band Neuts % (Manual) Lymphocytes % (Manual) Monocytes % (Manual) Eosinophils % (Manual) Basophils % (Manual) Abs Neuts (Manual) Differential Comment Auto diff final Platelet Estimate Platelet Morphology APTT Fibrinogen POC Glucose 122 H 93 Folate Culture Results: Microbiology 07/19/18 13:37 Aerobic Blood Culture - Preliminary Blood - Line No growth in 2 days Anaerobic Blood Culture - Preliminary No growth in 2 days 07/18/18 23:15 Aerobic Blood Culture - Final Blood - Peripheral S. aureus MRSA Enterococcus faecalis Anaerobic Blood Culture - Final S. aureus MRSA Enterococcus faecalis 07/18/18 23:43 Aerobic Blood Culture - Final Blood - Peripheral S. aureus MRSA Anaerobic Blood Culture - Final S. aureus MRSA 07/19/18 23:01 Streptococcus pneumoniae Antigen (M - Final Urine - Clean Catch Urine Presumptive negative for streptococcus pneumoniae antigen, suggesting no current or recent infection. Infection due to Streptococcus pneumoniae cannot be ruled out since the antigen present in the sample may be below the detection limit of the test. 07/19/18 23:01 Legionella Antigen - Final Urine - Clean Catch Urine Presumptive negative for Legionella pneumophila serogroup 1 antigen in urine, suggesting no recent or recurrent infection. Infection due to Legionella cannot be ruled out since other serogroups and species may cause disease, antigen may not be present in urine in early infection, and the level of antigen present in the urine may be below the detection limit of the test. 07/19/18 12:13 Stool Occult Blood (SONI) - Final Stool Hemoccult negative Medications: Active Medications Generic Name Dose Route Start Last Admin Trade Name Freq PRN Reason Stop Dose Admin Acetaminophen 650 mg 07/18/18 22:53 07/19/18 08:37 Tylenol Liq PO 650 mg Q6H PRN Administration temp > 100.4 Al Hydroxide/Mg Hydroxide 30 ml 06/30/18 11:38 07/07/18 15:45 Milk Of Magnesia Liq PO 30 ml Q12H PRN Administration Mild Constipation Albuterol 1 ampul 06/30/18 11:38 07/13/18 04:13 Duoneb Neb (Prn) NEB 1 ampul Q2HR NEB PRN Administration WHEEZING Dextrose 50 ml 06/30/18 11:44 07/14/18 21:14 D50w Vial IV.PUSH 50 ml UNSCH PRN Administration PER HYPOGLYCEMIA PROTOCOL Fentanyl 1 patch 07/03/18 13:15 07/21/18 14:27 Duragesic 25 Mcg Patch.72hr T-DERMAL 1 patch Q72H [facility] Administration Gabapentin 600 mg 07/18/18 18:00 07/22/18 08:27 Neurontin PO 600 mg QID [facility] Administration Hydrocortisone Acetate 20 mg 07/16/18 09:00 07/22/18 08:27 Cortef PO 20 mg TID [facility] Administration Hydromorphone HCl 0.5 mg 07/19/18 12:00 07/22/18 08:41 Dilaudid Pf Inj IV.PUSH 0.5 mg Q2HR [facility] Administration Hydromorphone HCl 4 mg 07/21/18 13:00 07/22/18 05:53 Dilaudid PO 4 mg Q4H PRN Administration pain 3-10 Dextrose/Sodium Chloride 1,000 mls @ 75 mls/hr 07/05/18 16:28 07/22/18 08:29 D5w/1/2 Ns Inj IV.CONT Not Given .[id number] [facility] Cefepime HCl 2,000 mg/ Sodium 100 mls @ 200 mls/hr 07/20/18 20:00 07/22/18 05 :20 Chloride IV.SIG Infused Q8H [facility] Infusion Micafungin Sodium 150 mg/ 100 mls @ 100 mls/hr 07/20/18 20:00 07/21/18 22:18 Sodium Chloride IV.SIG Infused Q24H [facility] Infusion Vancomycin HCl 1,500 mg/ 515 mls @ 250 mls/hr 07/21/18 12:00 07/22/18 02:30 Sodium Chloride IV.SIG Infused Q12H [facility] Infusion Insulin Human Regular 0 units 07/01/18 16:00 07/22/18 08:28 Novolin R Correctional Sugar Inj SQ Not Given Q4HR [facility] Protocol Lactulose 30 ml 06/30/18 11:38 07/19/18 09:15 Lactulose Liq PO 30 ml DAILY PRN Administration SEVERE CONSITIPATION Levetiracetam 750 mg 07/03/18 21:00 07/22/18 08:27 Keppra PO 750 mg BID [facility] Administration Levothyroxine Sodium 75 mcg 07/04/18 06:00 07/22/18 05:54 Synthroid PO 75 mcg DAILY@0600 [facility] Administration Lorazepam 1 mg 07/09/18 23:04 07/22/18 08:42 Ativan Inj IV.PUSH 1 mg Q4H PRN Administration seizures/anxiety Pantoprazole Sodium 40 mg 07/07/18 09:00 07/22/18 08:27 Protonix PO 40 mg DAILY [facility] Administration Patch Removal 1 each 07/03/18 13:00 07/21/18 16:27 Remove Old Patch T-DERMAL 1 each Q72H [facility] Administration Patch Removal 1 each 07/03/18 13:00 07/21/18 16:27 Remove Old Patch T-DERMAL Not Given Q72H [facility] Quetiapine Fumarate 400 mg 07/03/18 21:00 07/03/18 21:19 Seroquel PO Not Given BID [facility] Quetiapine Fumarate 150 mg 07/11/18 22:00 07/21/18 20:24 Seroquel PO 150 mg HS [facility] Administration Sodium Chloride 2 ml 06/30/18 09:58 07/20/18 21:07 Ns Flush IV.FLUSH 2 ml PRN PRN Administration FLUSH AFTER USING IV ACCESS Tizanidine HCl 4 mg 07/18/18 12:45 07/22/18 05:53 Zanaflex PO 4 mg Q6HR PRN Administration MUSCLE SPASM Whey 1 packet 07/10/18 21:00 07/22/18 08:33 Beneprotein Powder G-TUBE Not Given BID [facility] Objective Remarks: GENERAL: Chronically ill-appearing young male patient, in no acute distress. SKIN: Warm and dry. HEAD: Normocephalic. EYES: No scleral icterus. No injection or drainage. NECK: Supple, trachea midline. Vas-cath to right neck. Collection bag to left neck. CARDIOVASCULAR: Regular rate and rhythm without murmurs. RESPIRATORY: Posterior breath sounds distant equal bilaterally. Nonlabored. GASTROINTESTINAL: Abdomen non-tender, nondistended. peg tube with TF. EXTREMITIES: No cyanosis, or edema. MUSCULOSKELETAL: Decreased muscle tone. NEUROLOGICAL: No obvious focal deficit. Awake, alert, and oriented x3. PSYCHIATRIC: Appropriate mood and affect; insight and judgment normal. 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 Oncology consulted for further recommendations. 1. Guillan [place] syndrome syndrome: followed by neurology service. Plasma phoresis EOD x's 5 treatments. The patient received 3 out of 5 however developed significant pancytopenia with fever and plasma exchange was placed on hold. 2. Pancytopenia, WBC and platelets improving. 3. Fevers have resolved, blood cultures positive for MRSA. Patient scheduled to have Vas-Cath removed and replaced today. After the Vas-Cath has been replaced, we will resume plasmapheresis. Dialysis has been notified of this plan, as well as the patient and the nurse. 4. We will continue to monitor labs.
[2018-07-22 09:22] LABS: Vitamin B12 700 pg/mL (193-986)
--- NOTE | 2018-07-22 12:30 | ECHRPT ---
Indication: SEPSIS POSS ENDOCARDITIS CONCLUSIONS Normal left ventricular size. Wall thickness is normal. The left ventricular systolic function is normal with an estimated ejection fraction in the range of 55-60%. A pacemaker wire is noted. There is a pacemaker wire present in the right atrial cavity. Trace mitral valve regurgitation. There is trace tricuspid valve regurgitation. The estimated pulmonary arterial pressure is 32 mmHg. A left sided pleural effusion is present. BP: / HR: Rhythm: Sinus, Pacemaker MEASUREMENTS (Male / Female) Normal Values Technical Quality:Fair 2D ECHO LV Diastolic Diameter PLAX 5.5 cm 4.2 - 5.9 / 3.9 - 5.3 cm LV Systolic Diameter PLAX 4.0 cm IVS Diastolic Thickness 0.7 cm 0.6 - 1.0 / 0.6 - 0.9 cm LVPW Diastolic Thickness 0.8 cm 0.6 - 1.0 / 0.6 - 0.9 cm LV Relative Wall Thickness 0.3 RV Internal Dim ED PLAX 3.1 cm LA Systolic Diameter LX 3.2 cm 3.0 - 4.0 / 2.7 - 3.8 cm DOPPLER TR Peak Velocity 232.0 cm/s TR Peak Gradient 21.5 mmHg Right Atrial Pressure 10.0 mmHg Pulmonary Artery Systolic Pressu 31.5 mmHg Right Ventricular Systolic Press 31.5 mmHg PV Peak Velocity 102.0 cm/s PV Peak Gradient 4.2 mmHg FINDINGS LEFT VENTRICLE Normal left ventricular size. Wall thickness is normal. The left ventricular systolic function is normal with an estimated ejection fraction in the range of 55-60%. RIGHT VENTRICLE A pacemaker wire is noted. LEFT ATRIUM The left atrial size is normal. RIGHT ATRIUM There is a pacemaker wire present in the right atrial cavity. ATRIAL SEPTUM Normal atrial septal thickness without atrial level shunting by limited color doppler interrogation. AORTA The aortic root and proximal ascending aorta are normal in size on limited imaging. MITRAL VALVE Trace mitral valve regurgitation. AORTIC VALVE Trileaflet aortic valve. No aortic valve stenosis or regurgitation. TRICUSPID VALVE There is trace tricuspid valve regurgitation. The estimated pulmonary arterial pressure is 32 mmHg. PULMONARY VALVE No pulmonary valve regurgitation or stenosis. VESSELS The inferior vena cava is normal in size. PERICARDIUM A left sided pleural effusion is present. George Sadler MD, FACC (Electronically Signed) Final Date:22 July 2018 12:29
--- NOTE | 2018-07-22 12:46 | P.DIET ---
Nutritional Evaluation Type of nutrition evaluation: follow-up (TF FU) Nutrition consult regarding: Tube Feeding Nutrition screening: [facility] Screening comments: 06/30 [facility] [place] Objective - Diagnosis ARF, PNA, AMS, Rhabodomylosis - Objective [place] body weight: 62 kg % IBW: 130 (IBW = 136lb) Body Weight Used for Calculations: Actual (66.9kg (admission weight)) Energy Needs - Lower Range (kCal/kg): 25 Energy Needs - Upper Range (kCal/kg): 30 Lower Limit kCal/kg (kCals): 1,650 Upper Limit kCal/kg (kCals): 1,980 Lower Limit Protein Factor (Grams per Kg): 1 Upper Limit Protein Factor (Grams per Kg): 1.2 Lower Protein Needs (Protein): 66 Upper Protein Needs (Protein): 79 Dietitian Reviewed in Medical Record: Curent medications, Intake & Output, Labs , Medical history, Tube feeding Diet Order: TF'ing Speech Therapy Recommendations: Yes (Cleared for ice chips and water) Objective Comments: PMH: Boorhaave Syndrome, 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 .5, K 3.4 Medications; reviewed Skin; wound around PEG site Feeding - Current Tube Feeding Tube Feeding Product: Jevity 1.5 Tube Feeding Method: Pump (Jevity 1.5ml running at 50ml/hour) Assessment Assessment: [facility]cemia; Reviewed pt's lab work which indicates normogylcemia. Random glucose; 76, 107, 127, 113, 93. Pt's glucose levels are running normally and occasionally slightly elevated which is to be expected 2/[address] Chris and he was agreeable that pt's glucose levels are WNL but explained that pt expressed his concern for "bottoming out" in which he will pour coffee and sugar into his tube to prevent low blood sugar. At this time, I have no additional nutritional concerns regarding this pt as he is tolerating TF at goal rate and his blood sugars are stable. Will recommend to continue with current TF order and inform pt to be cautious when adding coffee and sugar into his feeding tube. Will continue to monitor clinical course and tolerance to TF. Recommendations: 1. Continue with Jevity 1.5 at 50ml/hour 2. Continue to monitor tolerance to TF 3. Continue to monitor weight 4. Continue to monitor labs Dietitian to Monitor: Lab values, Renal labs, Intake & Output, Tube feeding tolerance
[2018-07-22] MEDS ORDERED: Potassium Chloride 25 MEQ Effervescent Tablet PO ONE (13:05)
--- NOTE | 2018-07-22 13:25 | P.PNIM ---
Subjective Interval history: The patient was anxious. He wanted the plasmapheresis to resume as soon as possible. He was worried about his bloodstream infection. His mother was at the bedside and their questions were answered. Discussed with nursing at the bedside. Physical Exam Vital signs: Last Vital Signs Temp 97.9 F 07/22/18 08:00 Pulse 77 07/22/18 08:00 Resp 18 07/22/18 08:00 BP 133/65 07/22/18 08:00 Pulse Ox 99 07/22/18 08:00 Intake & Output 07/20/18 07/21/18 07/22/18 07/23/18 06:59 06:59 06:59 06:59 Intake Total 3065.0 / 3065.0 3107.0 / 3107.0 3745 / 3745 641 / 641 Output Total 2500 / 2500 3000 / 3000 2600 / 2600 Balance 565.0 / 565.0 107.0 / 107.0 1145 / 1145 641 / 641 Weight 72.4 kg 73.4 kg 70.3 kg Narrative: GENERAL: Well-nourished pleasant male in no acute distress SKIN: Warm and dry. HEAD: Atraumatic. Normocephalic. EYES: Right pupil dilated 4cm, left 2cm. No scleral icterus. No injection or drainage. ENT: No nasal bleeding or discharge. Mucous membranes pink and moist. NECK: Trachea midline. No JVD. spit fistula esophagectomy with ostomy bag in place CARDIOVASCULAR: Tachycardic. RESPIRATORY: No accessory muscle use. Clear to auscultation. Breath sounds equal bilaterally. GASTROINTESTINAL: Abdomen soft, non-tender, nondistended. PEG tube in place, normoactive bowel sounds MUSCULOSKELETAL: Extremities without clubbing, cyanosis, or edema. No obvious deformities. NEUROLOGICAL: Awake and alert to person place time situation; motor strength 3/ 5 LLE and not much movement in the right lower extremity and cannot dorsiflex. Bilateral upper extremity 5 out of 5 motor strength. Normal speech. . Results Labs CBC & Chem 7: 07/22/18 07:26 07/22/18 07:26 Labs: Microbiology 07/21/18 06:46 Blood - Peripheral Aerobic Blood Culture - Preliminary No growth in 1 day 07/21/18 06:46 Blood - Peripheral Anaerobic Blood Culture - Preliminary No growth in 1 day 07/21/18 07:00 Blood - Peripheral Aerobic Blood Culture - Preliminary No growth in 1 day 07/21/18 07:00 Blood - Peripheral Anaerobic Blood Culture - Preliminary No growth in 1 day 07/19/18 13:37 Blood - Line Aerobic Blood Culture - Preliminary No growth in 3 days 07/19/18 13:37 Blood - Line Anaerobic Blood Culture - Preliminary No growth in 3 days 07/18/18 23:15 Blood - Peripheral Aerobic Blood Culture - Final S. aureus MRSA Enterococcus faecalis 07/18/18 23:15 Blood - Peripheral Anaerobic Blood Culture - Final S. aureus MRSA Enterococcus faecalis 07/18/18 23:43 Blood - Peripheral Aerobic Blood Culture - Final S. aureus MRSA 07/18/18 23:43 Blood - Peripheral Anaerobic Blood Culture - Final S. 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 Will consult golf course equipment operator for updated tube feeding recommendations. Previously discussed with patient outpatient doctor regarding transitioning to oral diet considering past history of Boerhaave syndrome and at this time it is recommended against oral feeding. Continue physical therapy. Rehab. Hematology consulted and following actively - BM biopsy records obtained and in chart Neurology input appreciated previously Status post lumbar puncture 07/08. CT MR spine and thoracic MRI also unremarkable.Check fibrinogen level, CBC, chemistry level and coagulations. - s/p platelets, 2 units. - Dilaudid .5mg IV q2 ( pt not new to opiods and takes oral outpatient). Changed morphine IR to PO Dilaudid. Bacteremia/Neutropenic fever BCx: growing MRSA and enterococcus. ID consult appreciated. Vancomycin, cefepime and micafungin per ID. -follow repeat blood cultures. -IR consulted for removal of tunneled IJ. Will need to be replaced when able. Nephrology: Hypokalemia Supplement potassium and monitor. Adrenal insufficiency Has had trouble with hypoglycemia, stable at this time. Oral hydrocortisone 20 mg 3 times daily. 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 Ornelas . -on testosterone injections as an outpt. Neurology: History seizure disorder Continue Keppra and gabapentin 600 TID. PRN EEG reviewed and no focal abnormality and no seizures noted. Cardiology: Bradycardia Patient with Medtronic pacer Gastroenterology: Patient with history of Boerhaave syndrome with split fistula esophagectomy. Patient outpatient surgeon recommended against oral feeding at this time - Surgeon; Dr. Rudi Medina [phone]/ Soniya BREAUX [phone]). - Previous J-tube placement. Hepatitis profile: + Hep C Ig ab US abdomen: Hepatosplenomegaly On Protonix 40 mg p.o. for GI prophylaxis Continue tube feeds via J-tube change to Suplena with goal rate 70ml/hr DVT prophylaxis: SCD GI prophylaxis: Protonix 40 mg daily Discharge Planning: Needs to complete plasmapheresis. Continue IV antibiotics per ID. Progress Note: Quality VTE Deep Vein Thrombosis/Pulmonary Embolism Present on Admission: No
--- NOTE | 2018-07-22 13:58 | IR ---
EXAM DATE: 07/22/2018 9:51 AM EST AGE/SEX: 32 years / Male INDICATIONS: Patient presents with vas cat in need of removal. CLINICAL DATA: This is the patient's initial encounter. Patient reports that signs and symptoms have been present for 2 days and indicates a pain score of 5/10. MEDICAL/SURGICAL HISTORY: . Boerhaave syndrome, Adrenal insufficiency, PTSD, Seizures, Pituitar y disfunction . Pacemaker, J-Tube, Spit fistula COMPARISON: . IMAGE SERIES: RADIATION DOSE: ACCESS SITE: . . PROCEDURE : 1. PermaCath removal. 2. Fluoroscopic guidance. The risks, benefits and alternatives to the procedure were explained and verbal and written consent w as obtained. The site was prepped in sterile fashion. Full sterile technique was used, including ca p, mask, sterile gloves and gown and a large sterile sheet. Hand hygiene and 2% chlorhexidine and/or betadine/alcohol prep was utilized per protocol for cutaneous antisepsis. The skin and subcutaneous tissues were infiltrated with local anesthetic solution. The tract was anesthetized with 1% Lidocain e using fluoroscopic guidance. The Permcath was dissected from the subcutaneous tissues and easily removed in one piece. Manual pre ssure was applied to the venotomy site until hemostasis was obtained. Sterile dressing was applied. The patient tolerated the procedure well and there were no complications. CONCLUSION: 1. Uncomplicated Permcath removal. Electronically signed by: Jefferson Gifford MD Board Certified Radiologist 07/22/2018 1:57 PM MATT Avendaño
[2018-07-22] MEDS: QUEtiapine 100 MG Tablet PO SCH (21:20)
[2018-07-22] MEDS: Micafungin Inj 150 MG in Sodium Chlor 0.9% Inj 100 ML IV.SIG SCH (21:24)
[2018-07-22] MEDS ORDERED: Pharmacy Ordered Lab Info OTHER ONE (23:45)
[2018-07-23 00:41] LABS: Anion Gap 3 meq/L (5-15); Blood Urea Nitrogen 4 mg/dL (7-18); Calcium 8.8 mg/dL (8.5-10.1); Carbon Dioxide 32.8 meq/L (21.0-32.0); Chloride 107 meq/L (98-107); Glomerular Filtration Rate Greater Than 89 mL/min (>89); Glucose,Random 98 mg/dL (74-106); Magnesium 2.2 mg/dL (1.5-2.5); Sodium 143 meq/L (136-145)
[2018-07-23 00:43] LABS: Vancomycin,Trough 16.7 mcg/mL (5.0-10.0)
[2018-07-23] MEDS: HYDROmorphone PF Inj 0.5 MG/0.5 ML Syringe IV.PUSH SCH ×8 (02:20→15:06)
[2018-07-23] MEDS: Insulin NovoLIN Regular Correctional Sugar Inj SQ SCH ×5 (04:33→22:38)
[2018-07-23] MEDS: Levothyroxine 75 MCG Tablet PO SCH (06:32)
[2018-07-23] MEDS: levETIRAcetam 250 MG Tablet PO SCH ×2 (08:39→22:38)
[2018-07-23] MEDS: Beneprotein Powder Packet G-TUBE SCH ×2 (08:39→22:49)
[2018-07-23] MEDS: Hydrocortisone 10 MG Tablet PO SCH ×3 (08:39→17:20)
[2018-07-23] MEDS: Gabapentin 300 MG Capsule PO SCH ×4 (08:39→22:38)
--- NOTE | 2018-07-23 09:58 | MB ---
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 SUBJECTIVE: He is doing well and does not have any new complaints, except that he did not have his vascath replaced yesterday, as I had wanted infection to be controlled for a few more days before the procedure. He feels that his weakness is returning, and is generally progressing after stopping the plasmapheresis, and wants to go back on it as soon as possible. Other than that, he has no new complaints. REVIEW OF SYSTEMS: Negative for headaches, dizziness, back pain or bone pains. No cough, chest pain, shortness of breath, abdominal pain, distention, blood in the stool or black stools, frequency, urgency or hematuria. No fevers or night sweats. PHYSICAL EXAMINATION: GENERAL: No apparent distress, well appearing. Pallor present. VITAL SIGNS: Stable. He is afebrile. HEENT: No icterus. NECK: No lymphadenopathy. NEUROLOGIC: Alert, oriented x4. The rest of the physical examination not performed today. LABORATORY STUDIES: Reviewed his labs and treatment options with him. IMPRESSION AND PLAN: 1. 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 Replacement of vas-cath to be followed by resumption of plasmapheresis as soon as possible. 2. Chronic pancytopenia, stable with history of splenomegaly and possible cirrhosis. No evidence of neutropenia at this time today. Today's CBC is pending. We will followup. I ordered CBC for tomorrow and PT, PTT and fibrinogen in case he gets plasmapheresis and requires fresh frozen plasma infusion, etc. Discussed with the patient and answered all his questions. Driss Ibrahim MD MVA/ , 08:55 AM , 09:02 AM
[2018-07-23 10:07] LABS: Baso % (Auto) 0.3 % (0.0-2.0); Eos # (Auto) 0.1 th/mm3 (0.0-0.4); Eos % (Auto) 3.3 % (0.0-4.0); Hematocrit 25.3 % (39.0-51.0); Hemoglobin 8.5 gm/dL (13.0-17.0); Lymph % (Auto) 42.5 % (9.0-44.0); Mean Corpuscular HGB Conc 33.7 % (32.0-36.0); Mean Corpuscular Hemoglobin 33.3 pg (27.0-34.0); Mean Corpuscular Volume 98.9 fL (80.0-100.0); Mono # (Auto) 0.3 th/mm3 (0.0-0.9); Mono % (Auto) 11.7 % (0.0-8.0); Neut % (Auto) 42.2 % (16.0-70.0); Platelet Count 102 th/mm3 (150-450); Red Blood Count 2.56 mil/mm3 (4.50-5.90); White Blood Count 2.3 th/mm3 (4.0-11.0)
[2018-07-23] MEDS: Dextrose 5%/NaCl 0.45% Inj 1,000 ML IV.CONT SCH (10:38)
[2018-07-23] MEDS ORDERED: MethylPREDNISolone Sod Succinate Inj 125 MG/2 ML Vial IV.PUSH ONE (12:30)
[2018-07-23] MEDS ORDERED: Ketorolac Inj 30 MG/ML (IVP) Vial IV.PUSH ONE (12:30)
[2018-07-23] MEDS: Vancomycin Inj 1,500 MG in Sodium Chlor 0.9% Inj 500 ML IV.SIG SCH (12:49)
[2018-07-23] MEDS ORDERED: HYDROmorphone PF Inj 0.5 MG/0.5 ML Syringe IV.PUSH PRN (16:01)
[2018-07-23] MEDS ORDERED: oxyCODONE/Acetaminophen 10/325 Tablet PO PRN (16:35)
[2018-07-23] MEDS ORDERED: [UNRECOGNIZED DRUG - OTHER] TOPICAL SCH (18:00)
[2018-07-23] MEDS ORDERED: Naloxone Inj 0.4 MG/ML Vial IV.PUSH PRN (18:10)
--- NOTE | 2018-07-23 18:23 | P.PNIM ---
Subjective Interval history: Patient's chief complaint today has been pain, we have tried at least 3 different pain regimens today the patient remains unsatisfied with his pain control. Physical Exam Vital signs: Last Vital Signs Temp 97.4 F L 07/23/18 16:00 Pulse 74 07/23/18 16:00 Resp 18 07/23/18 16:00 BP 153/86 H 07/23/18 16:00 Pulse Ox 100 07/23/18 16:00 Intake & Output 07/21/18 07/22/18 07/23/18 07/24/18 06:59 06:59 06:59 06:59 Intake Total 3107.0 / 3107.0 3745 / 3745 3615 / 3615 2130 / 2130 Output Total 3000 / 3000 2600 / 2600 Balance 107.0 / 107.0 1145 / 1145 3615 / 3615 2130 / 2130 Weight 73.4 kg 70.3 kg Narrative: GENERAL: Well-nourished pleasant male in no acute distress SKIN: Warm and dry. HEAD: Atraumatic. Normocephalic. EYES: Right pupil dilated 4cm, left 2cm. No scleral icterus. No injection or drainage. ENT: No nasal bleeding or discharge. Mucous membranes pink and moist. NECK: Trachea midline. No JVD. spit fistula esophagectomy with ostomy bag in place CARDIOVASCULAR: Tachycardic. RESPIRATORY: No accessory muscle use. Clear to auscultation. Breath sounds equal bilaterally. GASTROINTESTINAL: Abdomen soft, non-tender, nondistended. PEG tube in place, normoactive bowel sounds MUSCULOSKELETAL: Extremities without clubbing, cyanosis, or edema. No obvious deformities. NEUROLOGICAL: Awake and alert to person place time situation; motor strength 3/ 5 LLE and not much movement in the right lower extremity and cannot dorsiflex. Bilateral upper extremity 5 out of 5 motor strength. Normal speech. . Results Labs CBC & Chem 7: 07/23/18 08:28 07/22/18 23:41 Labs: Microbiology 07/21/18 06:46 Blood - Peripheral Aerobic Blood Culture - Preliminary No growth in 2 days 07/21/18 06:46 Blood - Peripheral Anaerobic Blood Culture - Preliminary No growth in 2 days 07/21/18 07:00 Blood - Peripheral Aerobic Blood Culture - Preliminary No growth in 2 days 07/21/18 07:00 Blood - Peripheral Anaerobic Blood Culture - Preliminary No growth in 2 days 07/19/18 13:37 Blood - Line Aerobic Blood Culture - Preliminary No growth in 4 days 07/19/18 13:37 Blood - Line Anaerobic Blood Culture - Preliminary No growth in 4 days Procedures Procedures: 07/08 lumbar puncture 07/11 Vas-cath placement Assessment and Plan Plan Patient is a pleasant 32-year-old male presenting with lower extremity weakness 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 Guillan Julio syndrome Previously on plasmapheresis which had to be stopped due to MRSA and enterococcus bacteremia Patient has had an increase in his pain level, complained of pain all day Failed treatments with Toradol, Solu-Medrol has not kicked in yet Continue with baseline steroids, Solu-Medrol and burst doses as needed Bone marrow biopsy records obtained and present in chart Continue physical therapy Appreciate neurology consult Chronic pain Patient has history of polysubstance abuse, very high tolerance, remains in pain despite doses Discussed timing of doses and q. 2-hour pattern of use We have agreed to try every 6 hours at a higher dose of oral Dilaudid Narcan is ordered in case patient becomes sedated, he insisted he will not Thrombocytopenia Patient has periodic drops in his platelet count, dropped below 30 during the stay, now at 108 Continue to monitor platelet count closely Appreciate hematology consult Neutropenic fever, bacteremia Blood cultures grew out MRSA and enterococcus Continue vancomycin, cefepime, micafungin per ID Follow repeat blood cultures IJ lines were removed, will replace when cleared by ID, then resume plasmapheresis Appreciate infectious disease consult Adrenal insufficiency Has had trouble with hypoglycemia, stable at this time. Continue oral hydrocortisone 20 mg 3 times daily. 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 Ornelas . Continue testosterone injections as an outpt. History seizure disorder Continue Keppra and gabapentin 600 TID. 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 Patient outpatient surgeon recommended against food at this time Surgeon; Dr. Rudi Medina [phone]/ Soniya BREAUX [phone]). Previous J-tube placement. Hepatitis profile: + Hep C Ig ab US abdomen: Hepatosplenomegaly On Protonix 40 mg p.o. for GI prophylaxis Continue tube feeds via J-tube change to Suplena with goal rate 70ml/hr DVT prophylaxis SCDs Greater than 60 minutes was spent in direct care of this patient today Progress Note: Quality VTE Deep Vein Thrombosis/Pulmonary Embolism Present on Admission: No
[2018-07-23] MEDS: Micafungin Inj 150 MG in Sodium Chlor 0.9% Inj 100 ML IV.SIG SCH (22:37)
[2018-07-23] MEDS: QUEtiapine 100 MG Tablet PO SCH (22:39)
[2018-07-24] MEDS: Insulin NovoLIN Regular Correctional Sugar Inj SQ SCH ×5 (00:26→15:55)
[2018-07-24] MEDS: Vancomycin Inj 1,500 MG in Sodium Chlor 0.9% Inj 500 ML IV.SIG SCH ×3 (00:26→23:47)
[2018-07-24] MEDS: Dextrose 5%/NaCl 0.45% Inj 1,000 ML IV.CONT SCH ×3 (03:26→23:47)
[2018-07-24] MEDS: Levothyroxine 75 MCG Tablet PO SCH (05:07)
[2018-07-24 07:58] LABS: Baso % (Auto) 0.5 % (0.0-2.0); Hematocrit 26.8 % (39.0-51.0); Lymph # (Auto) 0.9 th/mm3 (1.0-4.8); Lymph % (Auto) 25.7 % (9.0-44.0); Mean Corpuscular HGB Conc 33.7 % (32.0-36.0); Mean Corpuscular Volume 97.9 fL (80.0-100.0); Mean Platelet Volume 8.5 fL (7.0-11.0); Mono # (Auto) 0.2 th/mm3 (0.0-0.9); Mono % (Auto) 7.1 % (0.0-8.0); Neut # (Auto) 2.3 th/mm3 (1.8-7.7); Neut % (Auto) 65.7 % (16.0-70.0); Platelet Count 166 th/mm3 (150-450); Red Blood Count 2.74 mil/mm3 (4.50-5.90); Red Cell Distribution Width 16.9 % (11.6-17.2); White Blood Count 3.5 th/mm3 (4.0-11.0)
[2018-07-24] MEDS: Hydrocortisone 10 MG Tablet PO SCH ×3 (08:00→17:14)
[2018-07-24] MEDS: Beneprotein Powder Packet G-TUBE SCH ×2 (08:00→20:28)
[2018-07-24] MEDS: Gabapentin 300 MG Capsule PO SCH ×4 (08:00→20:20)
[2018-07-24] MEDS: levETIRAcetam 250 MG Tablet PO SCH ×2 (08:00→20:21)
[2018-07-24 08:09] LABS: Activated Partial Thrombo Time 27.1 sec (23.4-31.7); INR 1.1 Ratio; Prothrombin Time 11.1 sec (9.8-11.6)
[2018-07-24 08:29] LABS: Albumin 3.9 g/dL (3.4-5.0); Anion Gap 9 meq/L (5-15); Aspartate Aminotransferase 15 U/L (15-37); Blood Urea Nitrogen 8 mg/dL (7-18); Calcium 8.8 mg/dL (8.5-10.1); Carbon Dioxide 25.7 meq/L (21.0-32.0); Chloride 105 meq/L (98-107); Glomerular Filtration Rate Greater Than 89 mL/min (>89); Glucose,Random 123 mg/dL (74-106); Potassium 3.5 meq/L (3.5-5.1); Sodium 140 meq/L (136-145)
[2018-07-24 08:31] LABS: Alanine Aminotransferase 33 U/L (12-78)
[2018-07-24 08:32] LABS: Alkaline Phosphatase 72 U/L (45-117); Total Protein 7.2 g/dL (6.4-8.2)
--- NOTE | 2018-07-24 11:47 | P.PNONC ---
Subjective Interval history: Patient sitting up in bed, no acute distress. He states "I am regressing in my weakness", he is eager to resume plasmapheresis. Objective Vital Signs/Intake & Output: Vital Signs 07/23/18 12:00 07/23/18 16:00 07/23/18 20:00 Temperature 97.9 F 97.4 F L 98 F Pulse Rate 86 74 73 Respiratory Rate 17 18 17 Blood Pressure 137/84 153/86 H 155/78 H Pulse Oximetry 100 100 99 07/24/18 00:00 07/24/18 04:00 07/24/18 08:00 Temperature 97.9 F 97.8 F 97.9 F Pulse Rate 92 H 85 79 Respiratory Rate 18 14 18 Blood Pressure 142/87 H 144/74 H 152/84 H Pulse Oximetry 96 97 100 Intake & Output 07/23/18 07/24/18 07/24/18 18:59 06:59 18:59 Intake Total 2610 / 2610 2395 / 2395 100 / 100 Output Total 500 / 500 Balance 2110 / 2110 2395 / 2395 100 / 100 Weight 69.7 kg Intake: IV 2130 / 2130 1715 / 1715 100 / 100 D5W/1/2 NS Inj 1,000 ML @ 75 1000 / 1000 mls/hr IV.CONT .[id number] [facility] Rx# :[id number] Maxipime Inj 2,000 MG In NS Inj 1100 / 1100 100 / 100 100 / 100 100 ML @ 200 mls/hr IV.SIG Q8H [facility] Rx#:[id number] Mycamine Inj 150 MG In NS Inj 100 / 100 100 ML @ 100 mls/hr IV.SIG Q24H [facility] Rx#:[id number] Vancomycin Inj 1,500 MG In NS 1030 / 1030 515 / 515 Inj 500 ML @ 250 mls/hr IV.SIG Q12H [facility] Rx#:[id number] Oral 480 / 480 680 / 680 Output: Urine 500 / 500 Other: # Voids 950 Date of Last Bowel Movement 07/23/18 # Bowel Movements 1 Result Diagrams: 07/24/18 07:22 07/24/18 07:22 Laboratory Results: Laboratory Results - last 24 hr 07/23/18 07/23/18 07/23/18 12:48 17:20 20:23 WBC RBC Hgb Hct MCV MCH MCHC RDW Plt Count MPV Neut % (Auto) Lymph % (Auto) [place] % (Auto) Eos % (Auto) Baso % (Auto) Neut # (Auto) Lymph # (Auto) [place] # (Auto) Eos # (Auto) Baso # (Auto) WBC Differential Differential Comment PT INR APTT Fibrinogen Sodium Potassium Chloride Carbon Dioxide Anion Gap BUN Creatinine Estimated GFR POC Glucose 105 130 H 146 H Random Glucose Calcium Total Bilirubin AST ALT Alkaline Phosphatase Total Protein Albumin 07/24/18 07/24/18 07/24/18 00:24 05:03 07:22 WBC RBC Hgb Hct MCV MCH MCHC RDW Plt Count MPV Neut % (Auto) Lymph % (Auto) [place] % (Auto) Eos % (Auto) Baso % (Auto) Neut # (Auto) Lymph # (Auto) [place] # (Auto) Eos # (Auto) Baso # (Auto) WBC Differential Differential Comment PT INR APTT Fibrinogen Sodium 140 Potassium 3.5 Chloride 105 Carbon Dioxide 25.7 Anion Gap 9 BUN 8 Creatinine 0.76 Estimated GFR Greater than 89 POC Glucose 127 H 110 Random Glucose 123 H Calcium 8.8 Total Bilirubin 0.4 AST 15 ALT 33 Alkaline Phosphatase 72 Total Protein 7.2 D Albumin 3.9 07/24/18 07/24/18 07/24/18 07:22 07:22 07:27 WBC 3.5 L D RBC 2.74 L Hgb 9.0 L Hct 26.8 L MCV 97.9 MCH 33.0 MCHC 33.7 RDW 16.9 Plt Count 166 D MPV 8.5 Neut % (Auto) 65.7 Lymph % (Auto) 25.7 [place] % (Auto) 7.1 Eos % (Auto) 1.0 Baso % (Auto) 0.5 Neut # (Auto) 2.3 Lymph # (Auto) 0.9 L [place] # (Auto) 0.2 Eos # (Auto) 0.0 Baso # (Auto) 0.0 WBC Differential . Differential Comment Auto diff final PT 11.1 INR 1.1 APTT 27.1 Fibrinogen 210 L Sodium Potassium Chloride Carbon Dioxide Anion Gap BUN Creatinine Estimated GFR POC Glucose 145 H Random Glucose Calcium Total Bilirubin AST ALT Alkaline Phosphatase Total Protein Albumin Culture Results: Microbiology 07/21/18 06:46 Aerobic Blood Culture - Preliminary Blood - Peripheral No growth in 3 days Anaerobic Blood Culture - Preliminary No growth in 3 days 07/21/18 07:00 Aerobic Blood Culture - Preliminary Blood - Peripheral No growth in 3 days Anaerobic Blood Culture - Preliminary No growth in 3 days 07/19/18 13:37 Aerobic Blood Culture - Final Blood - Line No growth in 5 days Anaerobic Blood Culture - Final No growth in 5 days 07/18/18 23:15 Aerobic Blood Culture - Final Blood - Peripheral S. aureus MRSA Enterococcus faecalis Anaerobic Blood Culture - Final S. aureus MRSA Enterococcus faecalis 07/18/18 23:43 Aerobic Blood Culture - Final Blood - Peripheral S. aureus MRSA Anaerobic Blood Culture - Final S. aureus MRSA Medications: Active Medications Generic Name Dose Route Start Last Admin Trade Name Freq PRN Reason Stop Dose Admin Acetaminophen 650 mg 07/18/18 22:53 07/19/18 08:37 Tylenol Liq PO 650 mg Q6H PRN Administration temp > 100.4 Al Hydroxide/Mg Hydroxide 30 ml 06/30/18 11:38 07/07/18 15:45 Milk Of Magnesia Liq PO 30 ml Q12H PRN Administration Mild Constipation Albuterol 1 ampul 06/30/18 11:38 07/13/18 04:13 Duoneb Neb (Prn) NEB 1 ampul Q2HR NEB PRN Administration WHEEZING Dextrose 50 ml 06/30/18 11:44 07/14/18 21:14 D50w Vial IV.PUSH 50 ml UNSCH PRN Administration PER HYPOGLYCEMIA PROTOCOL Fentanyl 1 patch 07/03/18 13:15 07/21/18 14:27 Duragesic 25 Mcg Patch.72hr T-DERMAL 1 patch Q72H [facility] Administration Gabapentin 600 mg 07/18/18 18:00 07/24/18 08:00 Neurontin PO 600 mg QID [facility] Administration Hydrocortisone Acetate 20 mg 07/16/18 09:00 07/24/18 08:00 Cortef PO 20 mg TID [facility] Administration Hydromorphone HCl 8 mg 07/23/18 18:09 07/24/18 10:59 Dilaudid PO 8 mg Q6H PRN Administration Acute Pain Dextrose/Sodium Chloride 1,000 mls @ 75 mls/hr 07/05/18 16:28 07/24/18 03:26 D5w/1/2 Ns Inj IV.CONT 75 mls/hr .[id number] [facility] Administration Cefepime HCl 2,000 mg/ Sodium 100 mls @ 200 mls/hr 07/20/18 20:00 07/24/18 11 :00 Chloride IV.SIG 200 mls/hr Q8H [facility] Administration Micafungin Sodium 150 mg/ 100 mls @ 100 mls/hr 07/20/18 20:00 07/23/18 23:37 Sodium Chloride IV.SIG Infused Q24H [facility] Infusion Vancomycin HCl 1,500 mg/ 515 mls @ 250 mls/hr 07/21/18 12:00 07/24/18 02:30 Sodium Chloride IV.SIG Infused Q12H [facility] Infusion Insulin Human Regular 0 units 07/01/18 16:00 07/24/18 07:38 Novolin R Correctional Sugar Inj SQ Not Given Q4HR [facility] Protocol Lactulose 30 ml 06/30/18 11:38 07/19/18 09:15 Lactulose Liq PO 30 ml DAILY PRN Administration SEVERE CONSITIPATION Levetiracetam 750 mg 07/03/18 21:00 07/24/18 08:00 Keppra PO 750 mg BID [facility] Administration Levothyroxine Sodium 75 mcg 07/04/18 06:00 07/24/18 05:07 Synthroid PO 75 mcg DAILY@0600 [facility] Administration Lorazepam 1 mg 07/09/18 23:04 07/24/18 08:58 Ativan Inj IV.PUSH 1 mg Q4H PRN Administration seizures/anxiety Pantoprazole Sodium 40 mg 07/07/18 09:00 07/24/18 08:00 Protonix PO 40 mg DAILY [facility] Administration Patch Removal 1 each 07/03/18 13:00 07/21/18 16:27 Remove Old Patch T-DERMAL 1 each Q72H [facility] Administration Patch Removal 1 each 07/03/18 13:00 07/21/18 16:27 Remove Old Patch T-DERMAL Not Given Q72H [facility] Quetiapine Fumarate 400 mg 07/03/18 21:00 07/03/18 21:19 Seroquel PO Not Given BID [facility] Quetiapine Fumarate 150 mg 07/11/18 22:00 07/23/18 22:39 Seroquel PO 150 mg HS [facility] Administration Sodium Chloride 2 ml 06/30/18 09:58 07/20/18 21:07 Ns Flush IV.FLUSH 2 ml PRN PRN Administration FLUSH AFTER USING IV ACCESS Tizanidine HCl 4 mg 07/23/18 01:00 07/24/18 07:56 Zanaflex PO 4 mg Q6H PRN Administration MUSCLE SPASM Whey 1 packet 07/10/18 21:00 07/24/18 08:00 Beneprotein Powder G-TUBE Not Given BID [facility] Objective Remarks: GENERAL: Chronically ill-appearing young male patient, in no acute distress. SKIN: Warm and dry. HEAD: Normocephalic. EYES: No scleral icterus. No injection or drainage. NECK: Supple, trachea midline. 2 x 2 gauze dressing to right neck. Collection bag to left neck. CARDIOVASCULAR: Regular rate and rhythm without murmurs. RESPIRATORY: Posterior breath sounds distant equal bilaterally. Nonlabored. GASTROINTESTINAL: Abdomen non-tender, nondistended. peg tube with TF. EXTREMITIES: No cyanosis, or edema. MUSCULOSKELETAL: Decreased muscle tone. RLE weaker than LLE. NEUROLOGICAL: No obvious focal deficit. Awake, alert, and oriented x3. PSYCHIATRIC: Appropriate mood and affect; insight and judgment normal. 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 Oncology consulted for further recommendations. 1. 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 Plasma phoresis EOD x's 5 treatments. The patient received 3 out of 5 however developed significant pancytopenia with fever and plasma exchange was placed on hold. 2. Pancytopenia, improving. 3. Fevers have resolved, blood cultures positive for MRSA. Vas-Cath removed. Abx per ID. 4. Await ID approval to have Vas-Cath replaced. Will resume plasmapheresis once we have access.
--- NOTE | 2018-07-24 14:57 | P.PNIM ---
Subjective Interval history: Patient appears more comfortable today now that he is received the doses of pain medicines that I ordered yesterday. His only request is that he had macaroni and cheese. Per his surgeon's recommendation from the esophagectomy, solid foods are not permitted. I am willing to give him pured food since that can get stuck on the small stoma where he drains liquids during swallowing. Physical Exam Vital signs: Last Vital Signs Temp 98.0 F 07/24/18 12:00 Pulse 87 07/24/18 12:00 Resp 17 07/24/18 12:00 BP 149/91 H 07/24/18 12:00 Pulse Ox 100 07/24/18 12:00 Intake & Output 07/22/18 07/23/18 07/24/18 07/25/18 06:59 06:59 06:59 06:59 Intake Total 3745 / 3745 3615 / 3615 5005 / 5005 100 / 100 Output Total 2600 / 2600 500 / 500 Balance 1145 / 1145 3615 / 3615 4505 / 4505 100 / 100 Weight 70.3 kg 69.7 kg Narrative: GENERAL: Well-nourished pleasant male in no acute distress SKIN: Warm and dry. HEAD: Atraumatic. Normocephalic. EYES: Right pupil dilated 4cm, left 2cm. No scleral icterus. No injection or drainage. ENT: No nasal bleeding or discharge. Mucous membranes pink and moist. NECK: Trachea midline. No JVD. spit fistula esophagectomy with ostomy bag in place CARDIOVASCULAR: Tachycardic. RESPIRATORY: No accessory muscle use. Clear to auscultation. Breath sounds equal bilaterally. GASTROINTESTINAL: Abdomen soft, non-tender, nondistended. PEG tube in place, normoactive bowel sounds MUSCULOSKELETAL: Extremities without clubbing, cyanosis, or edema. No obvious deformities. NEUROLOGICAL: Awake and alert to person place time situation; motor strength 3/ 5 LLE and not much movement in the right lower extremity and cannot dorsiflex. Bilateral upper extremity 5 out of 5 motor strength. Normal speech. . Results Labs CBC & Chem 7: 07/24/18 07:22 07/24/18 07:22 Labs: Microbiology 07/21/18 06:46 Blood - Peripheral Aerobic Blood Culture - Preliminary No growth in 3 days 07/21/18 06:46 Blood - Peripheral Anaerobic Blood Culture - Preliminary No growth in 3 days 07/21/18 07:00 Blood - Peripheral Aerobic Blood Culture - Preliminary No growth in 3 days 07/21/18 07:00 Blood - Peripheral Anaerobic Blood Culture - Preliminary No growth in 3 days 07/19/18 13:37 Blood - Line Aerobic Blood Culture - Final No growth in 5 days 07/19/18 13:37 Blood - Line Anaerobic Blood Culture - Final No growth in 5 days Procedures Procedures: 07/08 lumbar puncture 07/11 Vas-cath placement Assessment and Plan Plan Patient is a pleasant 32-year-old male presenting with lower extremity weakness 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 07/24/18 = patient is ambulating, able to walk down the hallway, appearing stronger after having his pain more adequately controlled with increased doses of p.o. and IV Dilaudid. Guillan Julio syndrome Previously on plasmapheresis which had to be stopped due to MRSA and enterococcus bacteremia Patient has had an increase in his pain level, complained of pain all day Failed treatments with Toradol, Solu-Medrol has not kicked in yet Continue with baseline steroids, Solu-Medrol and burst doses as needed Bone marrow biopsy records obtained and present in chart Continue physical therapy Appreciate neurology consult Chronic pain Patient has history of polysubstance abuse, very high tolerance, remains in pain despite doses Discussed timing of doses and q. 2-hour pattern of use We have agreed to try every 6 hours at a higher dose of oral Dilaudid Narcan is ordered in case patient becomes sedated, he insisted he will not Thrombocytopenia Patient has periodic drops in his platelet count, dropped below 30 during the stay, now at 108 Continue to monitor platelet count closely Appreciate hematology consult Neutropenic fever, bacteremia Blood cultures grew out MRSA and enterococcus Continue vancomycin, cefepime, micafungin per ID Follow repeat blood cultures IJ lines were removed, will replace when cleared by ID, then resume plasmapheresis Appreciate infectious disease consult Adrenal insufficiency Has had trouble with hypoglycemia, stable at this time. Continue oral hydrocortisone 20 mg 3 times daily. Patient outpatient [facility] [employer] [facility] [employer] Dr. Ornelas . Continue testosterone injections as an outpt. History seizure disorder Continue Keppra and gabapentin 600 TID. 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 Patient outpatient surgeon recommended against food at this time Surgeon; Dr. Rudi Medina [phone]/ Soniya BREAUX [phone]). Previous J-tube placement. Hepatitis profile: + Hep C Ig ab US abdomen: Hepatosplenomegaly On Protonix 40 mg p.o. for GI prophylaxis Continue tube feeds via J-tube change to [place]plena with goal rate 70ml/hr DVT prophylaxis SCDs Progress Note: Quality VTE Deep Vein Thrombosis/Pulmonary Embolism Present on Admission: No
--- NOTE | 2018-07-24 15:03 | P.PNID ---
Subjective Remarks: c/o feeling bad Vascath was removed Has LUE mid line afebrile repeat BC NGTD @ 3 days Antibiotics: vanco cefepime micafungin Allergies/Adverse Reactions: Allergies codeine Allergy (Severe, Verified 07/20/18 21:01) Hives tramadol Allergy (Severe, Verified 07/20/18 21:01) seizure cyclobenzaprine Allergy (Unknown, Verified 06/30/18 10:28) Unresponsive fluvoxamine Allergy (Unknown, Verified 06/30/18 10:28) Unresponsive zolpidem Allergy (Unknown, Verified 06/30/18 10:28) Unconscious Beta-Blockers (Beta-Adrenergic Bloc Allergy (Verified 06/30/18 10:28) Anaphylaxis MRI PRECAUTION Adverse Reaction (Severe, Uncoded 08/04/17 18:49) NON REVO PACEMAKER Objective Vital Signs 07/23/18 16:00 07/23/18 20:00 07/24/18 00:00 Temperature 97.4 F L 98 F 97.9 F Pulse Rate 74 73 92 H Respiratory Rate 18 17 18 Blood Pressure 153/86 H 155/78 H 142/87 H Pulse Oximetry 100 99 96 07/24/18 04:00 07/24/18 08:00 07/24/18 12:00 Temperature 97.8 F 97.9 F 98.0 F Pulse Rate 85 79 87 Respiratory Rate 14 18 17 Blood Pressure 144/74 H 152/84 H 149/91 H Pulse Oximetry 97 100 100 Intake & Output 07/23/18 07/24/18 07/24/18 18:59 06:59 18:59 Intake Total 2610 / 2610 2395 / 2395 100 / 100 Output Total 500 / 500 Balance 2110 / 2110 2395 / 2395 100 / 100 Weight 69.7 kg Intake: IV 2130 / 2130 1715 / 1715 100 / 100 D5W/1/2 NS Inj 1,000 ML @ 75 1000 / 1000 mls/hr IV.CONT .[id number] [facility] Rx# :[id number] Maxipime Inj 2,000 MG In NS Inj 1100 / 1100 100 / 100 100 / 100 100 ML @ 200 mls/hr IV.SIG Q8H [facility] Rx#:[id number] Mycamine Inj 150 MG In NS Inj 100 / 100 100 ML @ 100 mls/hr IV.SIG Q24H [facility] Rx#:[id number] Vancomycin Inj 1,500 MG In NS 1030 / 1030 515 / 515 Inj 500 ML @ 250 mls/hr IV.SIG Q12H [facility] Rx#:[id number] Oral 480 / 480 680 / 680 Output: Urine 500 / 500 Other: # Voids 950 Date of Last Bowel Movement 07/23/18 # Bowel Movements 1 07/21/18 06:46 Blood - Peripheral Aerobic Blood Culture - Preliminary No growth in 3 days 07/21/18 06:46 Blood - Peripheral Anaerobic Blood Culture - Preliminary No growth in 3 days 07/21/18 07:00 Blood - Peripheral Aerobic Blood Culture - Preliminary No growth in 3 days 07/21/18 07:00 Blood - Peripheral Anaerobic Blood Culture - Preliminary No growth in 3 days 07/19/18 13:37 Blood - Line Aerobic Blood Culture - Final No growth in 5 days 07/19/18 13:37 Blood - Line Anaerobic Blood Culture - Final No growth in 5 days 07/18/18 23:15 Blood - Peripheral Aerobic Blood Culture - Final S. aureus MRSA Enterococcus faecalis 07/18/18 23:15 Blood - Peripheral Anaerobic Blood Culture - Final S. aureus MRSA Enterococcus faecalis 07/18/18 23:43 Blood - Peripheral Aerobic Blood Culture - Final S. aureus MRSA 07/18/18 23:43 Blood - Peripheral Anaerobic Blood Culture - Final S. aureus MRSA Lab - Hematology Results 07/23/18 07/24/18 08:28 07:22 WBC 2.3 L 3.5 L D RBC 2.56 L 2.74 L Hgb 8.5 L 9.0 L Hct 25.3 L 26.8 L MCV 98.9 97.9 MCH 33.3 33.0 MCHC 33.7 33.7 RDW 17.0 16.9 Plt Count 102 L 166 D MPV 9.0 8.5 Neut % (Auto) 42.2 65.7 Lymph % (Auto) 42.5 25.7 [place] % (Auto) 11.7 H 7.1 Eos % (Auto) 3.3 1.0 Baso % (Auto) 0.3 0.5 Neut # (Auto) 1.0 L 2.3 Lymph # (Auto) 1.0 0.9 L [place] # (Auto) 0.3 0.2 Eos # (Auto) 0.1 0.0 Baso # (Auto) 0.0 0.0 WBC Differential . . Differential Comment Auto diff final Auto diff final Lab - Chemistry Results 07/22/18 07/22/18 07/22/18 16:56 19:32 23:41 Sodium 143 Potassium 4.0 Chloride 107 Carbon Dioxide 32.8 H Anion Gap 3 L BUN 4 L Creatinine 0.44 L Estimated GFR Greater than 89 POC Glucose 95 139 H Random Glucose 98 Calcium 8.8 Magnesium 2.2 Total Bilirubin AST ALT Alkaline Phosphatase Total Protein Albumin 07/23/18 07/23/18 07/23/18 04:32 08:42 12:48 Sodium Potassium Chloride Carbon Dioxide Anion Gap BUN Creatinine Estimated GFR POC Glucose 119 H 82 105 Random Glucose Calcium Magnesium Total Bilirubin AST ALT Alkaline Phosphatase Total Protein Albumin 07/23/18 07/23/18 07/24/18 17:20 20:23 00:24 Sodium Potassium Chloride Carbon Dioxide Anion Gap BUN Creatinine Estimated GFR POC Glucose 130 H 146 H 127 H Random Glucose Calcium Magnesium Total Bilirubin AST ALT Alkaline Phosphatase Total Protein Albumin 07/24/18 07/24/18 07/24/18 05:03 07:22 07:27 Sodium 140 Potassium 3.5 Chloride 105 Carbon Dioxide 25.7 Anion Gap 9 BUN 8 Creatinine 0.76 Estimated GFR Greater than 89 POC Glucose 110 145 H Random Glucose 123 H Calcium 8.8 Magnesium Total Bilirubin 0.4 AST 15 ALT 33 Alkaline Phosphatase 72 Total Protein 7.2 D Albumin 3.9 Imaging: ITS Impressions Abdomen Ultrasound 06/30/18 00:00 CONCLUSION: 1. The kidneys demonstrate increased echogenicity concerning for medical renal disease. 2. Hepatosplenomegaly. 3. Right pleural effusion. Cervical Spine CT 07/02/18 00:00 CONCLUSION: 1. No acute bony abnormalities within the cervical spine. No canal stenosis identified. 2. Soft tissue swelling of the left neck with small radiopaque foreign bodies in the subcutaneous tissues and locules of air, possibly related to fistulous tract. Thoracic Spine CT 07/02/18 00:00 CONCLUSION: 1. Mild kyphosis. 2. Mild loss of height of several lower thoracic vertebral bodies, stable. 3. No acute compression fracture. Head CT 07/02/18 14:12 CONCLUSION: 1. Stable negative noncontrast CT. . Head MRI 07/03/18 07:05 CONCLUSION: 1. Unremarkable MRI of the brain. Cervical Spine MRI 07/03/18 07:07 CONCLUSION: 1. Focal mild right lateral bulging at C5-6. 2. Otherwise, unremarkable exam for patient's age. Thoracic Spine MRI 07/03/18 07:07 CONCLUSION: 1. Mild broad-based bulging at T10-T11. 2. Mild disc space narrowing from T3 through T7. 3. Mild chronic loss of height of T9, T10 and T11. No abnormal bone marrow signal. Chest CT 07/04/18 00:00 CONCLUSION: 1. No evidence of Pancoast tumor as questioned. 2. Stable 4 mm nodule in the superior segment of the right lower lobe. Routine follow-up of sub-6 mm nodules is not recommended per 2017 Fleischner material. This nodule has been essentially stable for 18 months. 3. Small right and trace left simple appearing pleural effusions. Soft Tissue Neck CT 07/04/18 00:00 CONCLUSION: 1. I do not see evidence for esophageal rupture. Lumbar Puncture Fluoroscopy 07/08/18 00:00 CONCLUSION: Uncomplicated fluoroscopically guided lumbar puncture. Catheter Placement 07/11/18 00:00 CONCLUSION: 1. Uncomplicated line placement as above. Barium Swallow X-Ray 07/12/18 00:00 CONCLUSION: No evidence of penetration of the supraglottic larynx or tracheal aspiration with multiple swallows of thin barium. Chest X-Ray 07/18/18 00:00 CONCLUSION: 1. Mild patchy bilateral nonspecific airspace opacities as described. 2. Elevated left hemidiaphragm again noted. 3. Normal, stable heart size. Cardiac pacer again noted. 4. Right IJ line with distal tip in the right atrium. Tube Removal 07/22/18 18:36 CONCLUSION: 1. Uncomplicated Permcath removal. Physical Exam: GENERAL: NAD SKIN: Warm and dry. no rash HEAD: Atraumatic. Normocephalic. alopecia on L occipital gordon EYES: Pupils equal and round. No scleral icterus. No injection or drainage. ENT: No nasal bleeding or discharge. Mucous membranes pink and moist. NECK: Trachea midline. No JVD. CARDIOVASCULAR: Regular rate and rhythm. RESPIRATORY: No accessory muscle use. Clear to auscultation. Breath sounds equal bilaterally. GASTROINTESTINAL: Abdomen soft, non-tender, nondistended. Hepatic and splenic margins not palpable. MUSCULOSKELETAL: Extremities without clubbing, cyanosis, or edema. No obvious deformities. NEUROLOGICAL: Awake and alert. Non focal. Normal speech. PSYCHIATRIC: anxious LINE: LUE midline in place - site OK Assessment and Plan - Plan Mult med prob Fistula post esophagectomy GBS, on plasmapheresis MRSA sepsis, high grade, new - sp vascath removal Ent fecalis sepsis Netropenia: resolved Netropenic fever: resolved For plasmapheresis will need to use Vascath; OK to put Vascath if more plasmapheresis treatment s are needed cont vancomycin 2 D echo fu repeat BC dc cefepime, micafungin
[2018-07-24] MEDS: HYDROmorphone PF Inj 0.5 MG/0.5 ML Syringe IV.PUSH PRN ×2 (20:13→23:48)
[2018-07-24] MEDS: QUEtiapine 100 MG Tablet PO SCH (20:21)
[2018-07-25] MEDS: Insulin NovoLIN Regular Correctional Sugar Inj SQ SCH ×6 (00:05→20:53)
[2018-07-25] MEDS: HYDROmorphone PF Inj 0.5 MG/0.5 ML Syringe IV.PUSH PRN ×4 (04:06→18:52)
[2018-07-25] MEDS: Dextrose 5%/NaCl 0.45% Inj 1,000 ML IV.CONT SCH ×2 (04:12→17:46)
[2018-07-25] MEDS: Levothyroxine 75 MCG Tablet PO SCH (05:45)
[2018-07-25] MEDS: Gabapentin 300 MG Capsule PO SCH ×4 (08:05→20:13)
[2018-07-25] MEDS: Hydrocortisone 10 MG Tablet PO SCH ×3 (08:05→18:52)
[2018-07-25] MEDS: levETIRAcetam 250 MG Tablet PO SCH ×2 (08:05→20:14)
[2018-07-25] MEDS: Beneprotein Powder Packet G-TUBE SCH ×2 (08:06→20:14)
[2018-07-25] MEDS ORDERED: *Heparin 10,000 UNITS/10 ML Vial Periprocedural ONLY ONE (11:18)
--- NOTE | 2018-07-25 11:57 | P.RAD ---
Post Procedure Progress Note - Pre Procedure Diagnosis (1) Guillain Julio syndrome - Post Procedure Diagnosis (1) Guillain Julio syndrome - Procedure Information Supervising Radiologist: Jarrod Garg MD - Plan of Activity Patient to Unit: Nursing Unit Patient Condition: Fair Additional Comments: Vascath placed via the right IJ catheter in good position OK for use See PACS Report for procedural detail/treatment.
[2018-07-25] MEDS: Vancomycin Inj 1,500 MG in Sodium Chlor 0.9% Inj 500 ML IV.SIG SCH ×2 (12:22→23:53)
[2018-07-25] MEDS ORDERED: CALCIUM GLUCONATE IV.SIG ONE (13:00)
[2018-07-25] MEDS ORDERED: SODIUM CHLOR 0.9% IV.SIG ONE (13:00)
--- NOTE | 2018-07-25 14:30 | P.PNONC ---
Subjective Interval history: Patient sitting up in bed, no acute distress. He had his Vas-Cath placed this a.m. He is eager to start plasmapheresis again. Discussed with dialysis nurse, plan for plasmapheresis today and Sunday. Objective Vital Signs/Intake & Output: Vital Signs 07/24/18 16:00 07/24/18 20:00 07/24/18 23:45 Temperature 97.8 F 97.8 F 97.2 F L Pulse Rate 80 110 H 74 Respiratory Rate 17 18 16 Blood Pressure 128/63 161/109 H 165/88 H Pulse Oximetry 100 98 100 07/25/18 00:00 07/25/18 04:00 07/25/18 08:00 Temperature 97.3 F L 98.1 F Pulse Rate 82 72 96 H Respiratory Rate 16 20 Blood Pressure 120/67 146/81 H Pulse Oximetry 100 100 07/25/18 12:00 Temperature 97.6 F Pulse Rate 93 H Respiratory Rate 20 Blood Pressure 145/87 H Pulse Oximetry 100 Intake & Output 07/24/18 07/25/18 07/25/18 18:59 06:59 18:59 Intake Total 2575 / 2575 1755 / 1755 365 / 365 Output Total 1800 / 1800 1800 / 1800 Balance 775 / 775 -45 / -45 365 / 365 Weight 76.8 kg Intake: IV 1615 / 1615 1515 / 1515 365 / 365 D5W/1/2 NS Inj 1,000 ML @ 75 1000 / 1000 1000 / 1000 365 / 365 mls/hr IV.CONT .[id number] [facility] Rx# :[id number] Maxipime Inj 2,000 MG In NS Inj 100 / 100 100 ML @ 200 mls/hr IV.SIG Q8H [facility] Rx#:[id number] Vancomycin Inj 1,500 MG In NS 515 / 515 515 / 515 Inj 500 ML @ 250 mls/hr IV.SIG Q12H ISIA[facility] Rx#:[id number] Oral 960 / 960 240 / 240 Output: Urine 1800 / 1800 1800 / 1800 Other: # Bowel Movements 0 Result Diagrams: 07/24/18 07:22 07/24/18 07:22 Laboratory Results: Laboratory Results - last 24 hr 07/11/18 07/24/18 07/25/18 07:55 23:46 04:11 POC Glucose 93 106 Misc Test Result Culture Results: Microbiology 07/21/18 06:46 Aerobic Blood Culture - Preliminary Blood - Peripheral No growth in 4 days Anaerobic Blood Culture - Preliminary No growth in 4 days 07/21/18 07:00 Aerobic Blood Culture - Preliminary Blood - Peripheral No growth in 4 days Anaerobic Blood Culture - Preliminary No growth in 4 days 07/19/18 13:37 Aerobic Blood Culture - Final Blood - Line No growth in 5 days Anaerobic Blood Culture - Final No growth in 5 days Medications: Active Medications Generic Name Dose Route Start Last Admin Trade Name Freq PRN Reason Stop Dose Admin Acetaminophen 650 mg 07/18/18 22:53 07/19/18 08:37 Tylenol Liq PO 650 mg Q6H PRN Administration temp > 100.4 Al Hydroxide/Mg Hydroxide 30 ml 06/30/18 11:38 07/07/18 15:45 Milk Of Magnesia Liq PO 30 ml Q12H PRN Administration Mild Constipation Albuterol 1 ampul 06/30/18 11:38 07/13/18 04:13 Duoneb Neb (Prn) NEB 1 ampul Q2HR NEB PRN Administration WHEEZING Dextrose 50 ml 06/30/18 11:44 07/14/18 21:14 D50w Vial IV.PUSH 50 ml UNSCH PRN Administration PER HYPOGLYCEMIA PROTOCOL Fentanyl 1 patch 07/03/18 13:15 07/24/18 13:48 Duragesic 25 Mcg Patch.72hr T-DERMAL 1 patch Q72H ISIAH Administration Gabapentin 600 mg 07/18/18 18:00 07/25/18 12:21 Neurontin PO 600 mg QID ISIAH Administration Hydrocortisone Acetate 20 mg 07/16/18 09:00 07/25/18 12:21 Cortef PO 20 mg TID ISIAH Administration Hydromorphone HCl 1 mg 07/23/18 16:01 07/24/18 13:47 Dilaudid Pf Inj IV.PUSH 1 mg Q4H PRN Administration BREAKTHROUGH PAIN Hydromorphone HCl 8 mg 07/23/18 18:09 07/25/18 10:06 Dilaudid PO 8 mg Q6H PRN Administration Acute Pain Hydromorphone HCl 1 mg 07/24/18 12:53 07/25/18 12:22 Dilaudid Pf Inj IV.PUSH 1 mg Q4H PRN Administration BREAKTHROUGH PAIN Dextrose/Sodium Chloride 1,000 mls @ 75 mls/hr 07/05/18 16:28 07/25/18 12:28 D5w/1/2 Ns Inj IV.CONT 75 mls/hr .[id number] ISIAH Infusion Vancomycin HCl 1,500 mg/ 515 mls @ 250 mls/hr 07/21/18 12:00 07/25/18 12:22 Sodium Chloride IV.SIG 250 mls/hr Q12H ISIAH Administration Insulin Human Regular 0 units 07/24/18 20:14 07/25/18 11:47 Novolin R Correctional Sugar Inj SQ Not Given Q4HR [facility] Protocol Lactulose 30 ml 06/30/18 11:38 07/19/18 09:15 Lactulose Liq PO 30 ml DAILY PRN Administration SEVERE CONSITIPATION Levetiracetam 750 mg 07/03/18 21:00 07/25/18 08:05 Keppra PO 750 mg BID ISIAH Administration Levothyroxine Sodium 75 mcg 07/04/18 06:00 07/25/18 05:45 Synthroid PO 75 mcg DAILY@0600 ISIAH Administration Lorazepam 1 mg 07/09/18 23:04 07/25/18 14:04 Ativan Inj IV.PUSH 1 mg Q4H PRN Administration seizures/anxiety Pantoprazole Sodium 40 mg 07/07/18 09:00 07/25/18 08:05 Protonix PO 40 mg DAILY ISIAH Administration Patch Removal 1 each 07/03/18 13:00 07/24/18 17:18 Remove Old Patch T-DERMAL 1 each Q72H ISIAH Administration Patch Removal 1 each 07/03/18 13:00 07/24/18 17:18 Remove Old Patch T-DERMAL Not Given Q72H ISIAH Quetiapine Fumarate 400 mg 07/03/18 21:00 07/03/18 21:19 Seroquel PO Not Given BID ISIAH Quetiapine Fumarate 150 mg 07/11/18 22:00 07/24/18 20:21 Seroquel PO 150 mg HS ISIAH Administration Sodium Chloride 2 ml 06/30/18 09:58 07/20/18 21:07 Ns Flush IV.FLUSH 2 ml PRN PRN Administration FLUSH AFTER USING IV ACCESS Tizanidine HCl 4 mg 07/23/18 01:00 07/25/18 14:03 Zanaflex PO 4 mg Q6H PRN Administration MUSCLE SPASM Whey 1 packet 07/10/18 21:00 07/25/18 08:06 Beneprotein Powder G-TUBE Not Given BID ISIAH Objective Remarks: GENERAL: Chronically ill-appearing young male patient, in no acute distress. SKIN: Warm and dry. HEAD: Normocephalic. EYES: No scleral icterus. No injection or drainage. NECK: Supple, trachea midline. Vas-Cath to right neck, no swelling erythema or oozing. Collection bag to left neck. CARDIOVASCULAR: Regular rate and rhythm without murmurs. RESPIRATORY: Posterior breath sounds distant equal bilaterally. Nonlabored. GASTROINTESTINAL: Abdomen non-tender, nondistended. Peg tube with TF. EXTREMITIES: No cyanosis, or edema. MUSCULOSKELETAL: Decreased muscle tone. RLE weaker than LLE. NEUROLOGICAL: No obvious focal deficit. Awake, alert, and oriented x3. PSYCHIATRIC: Appropriate mood and affect; insight and judgment normal. 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 Oncology consulted for further recommendations. 1. 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 Plasma phoresis EOD x's 5 treatments. The patient received 3 out of 5 however developed significant pancytopenia with fever and plasma exchange was placed on hold. Fevers have resolved. Vas-Cath replaced this a.m. Will resume plasmapheresis treatment #4 today and plan for treatment #5 on Sunday. 2. Pancytopenia, continues to improve. 3. Fevers have resolved, blood cultures positive for MRSA. Vas-Cath was removed removed. Abx per ID. Infectious disease cleared the patient to have replacement Vas-Cath placed for plasmapheresis. This was done today. 4. Resume plasmapheresis treatment #4 of 5 today. 5. Repeat CBC and coags in the a.m.
--- NOTE | 2018-07-25 14:36 | P.PNIM ---
Subjective Interval history: Nursing denies any acute changes overnight. Patient himself says he wishes his Dilaudid dosing could be more frequent, as well as Zanaflex. Says at home he was taking morphine and fentanyl. Says that the plasmapheresis treatments have been helping him tremendously. Denies any nausea or fevers. Physical Exam Vital signs: Vital Signs 07/24/18 16:00 07/24/18 20:00 07/24/18 23:45 Temperature 97.8 F 97.8 F 97.2 F L Pulse Rate 80 110 H 74 Respiratory Rate 17 18 16 Blood Pressure 128/63 161/109 H 165/88 H Pulse Oximetry 100 98 100 07/25/18 00:00 07/25/18 04:00 07/25/18 08:00 Temperature 97.3 F L 98.1 F Pulse Rate 82 72 96 H Respiratory Rate 16 20 Blood Pressure 120/67 146/81 H Pulse Oximetry 100 100 07/25/18 12:00 Temperature 97.6 F Pulse Rate 93 H Respiratory Rate 20 Blood Pressure 145/87 H Pulse Oximetry 100 Intake & Output 07/24/18 07/25/18 07/25/18 18:59 06:59 18:59 Intake Total 2575 / 2575 1755 / 1755 365 / 365 Output Total 1800 / 1800 1800 / 1800 Balance 775 / 775 -45 / -45 365 / 365 Weight 76.8 kg Intake: IV 1615 / 1615 1515 / 1515 365 / 365 D5W/1/2 NS Inj 1,000 ML @ 75 1000 / 1000 1000 / 1000 365 / 365 mls/hr IV.CONT .[id number] [facility]IA[facility] Rx# :[id number] Maxipime Inj 2,000 MG In NS Inj 100 / 100 100 ML @ 200 mls/hr IV.SIG Q8H [facility] Rx#:[id number] Vancomycin Inj 1,500 MG In NS 515 / 515 515 / 515 Inj 500 ML @ 250 mls/hr IV.SIG Q12H [facility] Rx#:[id number] Oral 960 / 960 240 / 240 Output: Urine 1800 / 1800 1800 / 1800 Other: # Bowel Movements 0 Narrative: Well-nourished pleasant male in no acute distress, until he stretches out his legs which point he moans out in pain Atraumatic. Normocephalic. Right pupil dilated 4cm, left 2cm. No scleral icterus. No injection or drainage. Trachea midline. No JVD. spit fistula esophagectomy with ostomy bag in place Tachycardic. No accessory muscle use. Clear to auscultation. Breath sounds equal bilaterally. Abdomen soft, non-tender, nondistended. PEG tube in place, normoactive bowel sounds Extremities without clubbing, cyanosis, or edema. No obvious deformities. Awake and alert to person place time situation; motor strength 3/5 LLE and not much movement in the right lower extremity and cannot dorsiflex. Bilateral upper extremity 5 out of 5 motor strength. Normal speech. . Results - Labs CBC & Chem 7: 07/24/18 07:22 07/24/18 07:22 Laboratory Results - last 24 hr 07/11/18 07/24/18 07/25/18 07:55 23:46 04:11 POC Glucose 93 106 Misc Test Result Microbiology 07/21/18 06:46 Blood - Peripheral Aerobic Blood Culture - Preliminary No growth in 4 days 07/21/18 06:46 Blood - Peripheral Anaerobic Blood Culture - Preliminary No growth in 4 days 07/21/18 07:00 Blood - Peripheral Aerobic Blood Culture - Preliminary No growth in 4 days 07/21/18 07:00 Blood - Peripheral Anaerobic Blood Culture - Preliminary No growth in 4 days 07/19/18 13:37 Blood - Line Aerobic Blood Culture - Final No growth in 5 days 07/19/18 13:37 Blood - Line Anaerobic Blood Culture - Final No growth in 5 days - Procedures 07/08 lumbar puncture 07/11 Vas-cath placement Assessment and Plan - Assessment (1) Neutropenic precautions Status: Acute (2) Neutropenic fever Code(s): D70.9 - Neutropenia, unspecified; R50.81 - Fever presenting with conditions classified elsewhere Status: Acute (3) Guillain Julio syndrome Code(s): G61.0 - Guillain-[place] syndrome Status: Acute - Plan Patient is a pleasant 32-year-old male presenting with lower extremity weakness 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 Developed bacteremia with neutropenic fever, had his Vas-Cath removed. Bacteremia cleared and had a new Vas-Cath placed on 07/25/18, per oncology plasmapheresis is planned today and 2 days from now. Guillan Julio syndrome Previously on plasmapheresis which had to be stopped due to MRSA and enterococcus bacteremia Patient has had an increase in his pain level, complained of pain all day Failed treatments with Toradol, Solu-Medrol has not kicked in yet Continue with baseline steroids, Solu-Medrol and burst doses as needed Bone marrow biopsy records obtained and present in chart Continue physical therapy Appreciate neurology consult Plasmapheresis scheduled to resume today, 2 more treatments scheduled Chronic pain Patient has history of polysubstance abuse, very high tolerance, remains in pain despite doses Discussed timing of doses and q. 2-hour pattern of use And will bump his Dilaudid to every 4 hours p.o. and maintain the same rate as IV Narcan is ordered in case patient becomes sedated, he insisted he will not Thrombocytopenia stabilized, hematology following Neutropenic fever, bacteremia MRSA and enterococcus Continue vancomycin, cefepime, micafungin per ID repeat blood cultures negative Adrenal insufficiency Has had trouble with hypoglycemia, stable at this time. Continue oral hydrocortisone 20 mg 3 times daily. 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 Continue testosterone injections as an outpt. History seizure disorder Continue Keppra and gabapentin 600 TID. 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 Patient outpatient surgeon recommended against food at this time Surgeon; Dr. Rudi Medina [phone]/ Soniya BREAUX [phone]). Previous J-tube placement. Hepatitis profile: + Hep C Ig ab US abdomen: Hepatosplenomegaly On Protonix 40 mg p.o. for GI prophylaxis Continue tube feeds via J-tube change to Suplena with goal rate 70ml/hr DVT prophylaxis SCDs
--- NOTE | 2018-07-25 15:22 | IR ---
EXAM DATE: 07/25/2018 12:18 PM EST AGE/SEX: 32 years / Male INDICATIONS: Patient on phoresis. Replacing vas cath that was removed for infection. CLINICAL DATA: This is the patient's initial encounter. Patient reports that signs and symptoms have been present for 1 month and indicates a pain score of 2/10. MEDICAL/SURGICAL HISTORY: . Boerhaave syndrome, adrenal insufficiency, Pituitary dysfunction, P TSD, seizures, Pacemaker. J tube, vas cath, spit fistula esophagectomy. COMPARISON: No prior exams available for comparison. FLUORO TIME (min): 29.4 IMAGE SERIES: 1 RADIATION DOSE: 0.77403 mGm2 ACCESS SITE: Right internal jugular vein DEVICE(S): 14 Iraqi double lumen 15 cm Schon catheter PROCEDURE : 1. Ultrasound guided venipuncture. 2. Fluoroscopic guidance. 3. Central line placement. The risks, benefits and alternatives to the procedure were explained and verbal and written consent w as obtained. The site was prepped in sterile fashion. Full sterile technique was used, including ca p, mask, sterile gloves and gown and a large sterile sheet. Hand hygiene and 2% chlorhexidine prep w as utilized per protocol for cutaneous antisepsis with appropriate dry time for site. Sterile gel an d sterile probe cover were utilized for ultrasound guidance. The skin and subcutaneous tissues were infiltrated with local anesthetic solution. A suitable site a lisa the vein was selected with ultrasound and fluoroscopic guidance. A small incision was made. Th e vein was accessed under direct ultrasound visualization using the micropuncture technique. The jen ropuncture set was exchanged for a 0.035 wire. The tract was dilated. The catheter was advanced int o position under direct fluoroscopic visualization, and was advanced with the tip at the junction of the superior vena cava and rt atrium. The catheter was fixed in place with suture and a sterile dres sing was applied. The patient tolerated the procedure well and there were no complications. CONCLUSION: 1. Uncomplicated right IJ Vas-Cath placement as above. Electronically signed by: Jarrod Garg MD Board Certified Radiologist 07/25/2018 3:21 PM EST
[2018-07-25] MEDS: Anticoagulant Citrate Dextrose 1,000 ML Solution EXTRACORPO SCH (17:50)
[2018-07-25] MEDS ORDERED: ALBUMIN HUMAN 5% IV.SIG ONE (18:00)
[2018-07-25] MEDS: QUEtiapine 100 MG Tablet PO SCH (20:14)
[2018-07-26] MEDS: Dextrose 5%/NaCl 0.45% Inj 1,000 ML IV.CONT SCH ×3 (00:09→21:07)
[2018-07-26] MEDS: HYDROmorphone PF Inj 0.5 MG/0.5 ML Syringe IV.PUSH PRN ×4 (02:25→14:08)
[2018-07-26] MEDS: Levothyroxine 75 MCG Tablet PO SCH (06:14)
[2018-07-26 08:04] LABS: Baso % (Auto) 0.4 % (0.0-2.0); Eos # (Auto) 0.1 th/mm3 (0.0-0.4); Eos % (Auto) 3.3 % (0.0-4.0); Hematocrit 29.4 % (39.0-51.0); Hemoglobin 9.7 gm/dL (13.0-17.0); Lymph # (Auto) 0.4 th/mm3 (1.0-4.8); Lymph % (Auto) 25.9 % (9.0-44.0); Mean Corpuscular HGB Conc 32.9 % (32.0-36.0); Mean Corpuscular Hemoglobin 32.8 pg (27.0-34.0); Mean Corpuscular Volume 99.6 fL (80.0-100.0); Mono # (Auto) 0.2 th/mm3 (0.0-0.9); Neut % (Auto) 60.4 % (16.0-70.0); Platelet Count 129 th/mm3 (150-450); Red Blood Count 2.95 mil/mm3 (4.50-5.90); Red Cell Distribution Width 17.6 % (11.6-17.2); White Blood Count 1.7 th/mm3 (4.0-11.0)
[2018-07-26] MEDS: Hydrocortisone 10 MG Tablet PO SCH ×3 (08:15→17:12)
[2018-07-26] MEDS: levETIRAcetam 250 MG Tablet PO SCH ×2 (08:16→20:47)
[2018-07-26] MEDS: Gabapentin 300 MG Capsule PO SCH ×4 (08:16→20:48)
[2018-07-26] MEDS: Beneprotein Powder Packet G-TUBE SCH (08:18)
[2018-07-26 08:51] LABS: Eosinophils 4 % (0-4); Lymphocytes 37 % (9-44); Monocytes 9 % (0-8); Myelocytes 2 % (0-0)
[2018-07-26 08:52] LABS: Platelet Morphology Normal (Normal)
[2018-07-26 09:04] LABS: Glomerular Filtration Rate Greater Than 89 mL/min (>89)
[2018-07-26] MEDS ORDERED: Pharmacy Ordered Lab Info OTHER ONE (11:45)
[2018-07-26] MEDS: Vancomycin Inj 1,500 MG in Sodium Chlor 0.9% Inj 500 ML IV.SIG SCH (12:13)
--- NOTE | 2018-07-26 12:58 | P.PNIM ---
Subjective Interval history: Nursing denies any acute changes overnight. When asked patient how he is doing , he says he feels tired, says that the plasmapheresis wears him out. Patient himself participated well with physical therapy. Patient thinks that he needs more plasmapheresis treatments to get over this acute episode of Radha Julio. Patient negotiates with me to go ahead and start spacing out the IV Dilaudid once I tell him that he will eventually need to come off of IV pain medications around the time of his last plasmapheresis treatment since his reason for hospitalization will then be fully addressed. He wants me to keep the p.o. Dilaudid on for now. Physical Exam Vital signs: Vital Signs 07/25/18 16:00 07/25/18 20:00 07/25/18 23:51 Temperature 98.3 F 97.9 F Pulse Rate 81 120 H 92 H Respiratory Rate 18 18 Blood Pressure 142/87 H 136/81 Pulse Oximetry 100 99 07/26/18 00:00 07/26/18 04:00 07/26/18 08:00 Temperature 98.2 F 98.4 F Pulse Rate 96 H 82 110 H Respiratory Rate 18 20 Blood Pressure 128/67 152/101 H Pulse Oximetry 99 100 Intake & Output 07/25/18 07/26/18 07/26/18 18:59 06:59 18:59 Intake Total 4880 / 4880 1390 / 1390 418 / 418 Output Total 5225 / 5225 Balance -345 / -345 1390 / 1390 418 / 418 Weight 77 kg Intake: IV 4880 / 4880 1390 / 1390 418 / 418 D5W/1/2 NS Inj 1,000 ML @ 75 365 / 365 635 / 635 418 / 418 mls/hr IV.CONT .[id number] ISIAH Rx# :[id number] [place] 5% Inj 4,000 ML @ As 4000 / 4000 Directed IV.SIG ONCE ONE Rx#: [id number] Vancomycin Inj 1,500 MG In NS 515 / 515 515 / 515 Inj 500 ML @ 250 mls/hr IV.SIG Q12H ISIAH Rx#:[id number] Output: Urine 1225 / 1225 Plasma Exchange Amount 4000 / 4000 Other: # Voids 1 Date of Last Bowel Movement 07/25/18 07/25/18 Narrative: Patient seen and relating down the hallway physical therapy, appears to be in no acute distress I see him again in his room coming out of the bathroom in no acute distress uses a walker very well, appears to not be in any acute significant severe pain Clear lungs bilaterally, unlabored breathing esophagectomy Ostomy bag in place Hrt sounds RRR moves all 4 extremities spontaneously . Results - Labs CBC & Chem 7: 07/26/18 07:35 07/26/18 07:35 Laboratory Results - last 24 hr 07/26/18 07/26/18 07/26/18 07:35 07:35 07:35 WBC 1.7 L RBC 2.95 L Hgb 9.7 L Hct 29.4 L MCV 99.6 MCH 32.8 MCHC 32.9 RDW 17.6 H Plt Count 129 L MPV 8.0 Prelim Diff (Auto) Slide review pending Neut % (Auto) 60.4 Lymph % (Auto) 25.9 [place] % (Auto) 10.0 H Eos % (Auto) 3.3 Baso % (Auto) 0.4 Neut # (Auto) 1.0 L Lymph # (Auto) 0.4 L [place] # (Auto) 0.2 Eos # (Auto) 0.1 Baso # (Auto) 0.0 WBC Differential Manual diff final Seg Neuts % (Manual) 46 Lymphocytes % (Manual) 37 Monocytes % (Manual) 9 H Eosinophils % (Manual) 4 Basophils % (Manual) 2 Myelocytes % (Man) 2 H Abs Neuts (Manual) 0.8 L Differential Comment . Platelet Estimate Low L Platelet Morphology Normal Fibrinogen 117 L Creatinine 0.56 L Estimated GFR Greater than 89 Vancomycin Trough Blood Bank Comment 07/26/18 07/26/18 10:14 11:30 WBC RBC Hgb Hct MCV MCH MCHC RDW Plt Count MPV Prelim Diff (Auto) Neut % (Auto) Lymph % (Auto) [place] % (Auto) Eos % (Auto) Baso % (Auto) Neut # (Auto) Lymph # (Auto) [place] # (Auto) Eos # (Auto) Baso # (Auto) WBC Differential Seg Neuts % (Manual) Lymphocytes % (Manual) Monocytes % (Manual) Eosinophils % (Manual) Basophils % (Manual) Myelocytes % (Man) Abs Neuts (Manual) Differential Comment Platelet Estimate Platelet Morphology Fibrinogen Creatinine Estimated GFR Vancomycin Trough 17.3 H Blood Bank Comment Microbiology 07/21/18 06:46 Blood - Peripheral Aerobic Blood Culture - Final No growth in 5 days 07/21/18 06:46 Blood - Peripheral Anaerobic Blood Culture - Final No growth in 5 days 07/21/18 07:00 Blood - Peripheral Aerobic Blood Culture - Final No growth in 5 days 07/21/18 07:00 Blood - Peripheral Anaerobic Blood Culture - Final No growth in 5 days - Imaging Impressions Catheter Placement 07/25/18 00:00 CONCLUSION: 1. Uncomplicated right IJ Vas-Cath placement as above. - Procedures 07/08 lumbar puncture 07/11 Vas-cath placement Assessment and Plan - Assessment (1) Neutropenic precautions Status: Acute (2) Neutropenic fever Code(s): D70.9 - Neutropenia, unspecified; R50.81 - Fever presenting with conditions classified elsewhere Status: Acute (3) Guillain Julio syndrome Code(s): G61.0 - Guillain-[place] syndrome Status: Acute - Plan Patient is a pleasant 32-year-old male presenting with lower extremity weakness 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 Developed bacteremia with neutropenic fever, had his Vas-Cath removed. ID comanaged abx, bacteremia and fever cleared based on repeat cultures, had a new Vas-Cath placed on 07/25/18, resumed fourth plasmapheresis treatment on 07/25/18. Guillan Julio syndrome Previously on plasmapheresis which had to be stopped due to MRSA and enterococcus bacteremia Was restarted on plasmapheresis on 07/25/18 at 4 of 5 treatments, 5th tx due on 07/27 case dw/ neurology, who will reevaluate the patient on07/26 for possible further plasmapheresis treatments Chronic pain hx of drug use, high tolerance Decrease his IV dilaudid to q 6hrs as breakthru, maintain po Dilaudid every 4 hours Narcan is ordered in case patient becomes sedated, he insisted he will not Panctoypenia Thrombocytopenia stabilized, hematology following 2/2 splenomegaly and/or Hep C, BM bx results in chart seeking HIV test either from previous med rec vs needs new test Bacteremia MRSA and enterococcus Continue vancomycin, cefepime, micafungin per ID repeat blood cultures negative Adrenal insufficiency Has had trouble with hypoglycemia, stable at this time. Continue oral hydrocortisone 20 mg 3 times daily. 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 Continue testosterone injections as an outpt. History seizure disorder Continue Keppra and gabapentin 600 TID. 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 Rudi Medina [phone]/ Soniya BREAUX [phone]). Previous J-tube placement. Hepatitis profile: + Hep C Ig ab US abdomen: Hepatosplenomegaly On Protonix 40 mg p.o. for GI prophylaxis Continue tube feeds via J-tube change to Suplena with goal rate 70ml/hr Patient cut his J-tube apparently accidentally, GI being consulted DVT prophylaxis SCDs
--- NOTE | 2018-07-26 15:59 | P.PNID ---
Subjective Remarks: has new Vascath cont to undergo plasmapheresis treatments no fever ambulates with walker neutropenic again Antibiotics: vanco Allergies/Adverse Reactions: Allergies codeine Allergy (Severe, Verified 07/20/18 21:01) Hives tramadol Allergy (Severe, Verified 07/20/18 21:01) seizure cyclobenzaprine Allergy (Unknown, Verified 06/30/18 10:28) Unresponsive fluvoxamine Allergy (Unknown, Verified 06/30/18 10:28) Unresponsive zolpidem Allergy (Unknown, Verified 06/30/18 10:28) Unconscious Beta-Blockers (Beta-Adrenergic Bloc Allergy (Verified 06/30/18 10:28) Anaphylaxis MRI PRECAUTION Adverse Reaction (Severe, Uncoded 08/04/17 18:49) NON REVO PACEMAKER Objective Vital Signs 07/25/18 16:00 07/25/18 20:00 07/25/18 23:51 Temperature 98.3 F 97.9 F Pulse Rate 81 120 H 92 H Respiratory Rate 18 18 Blood Pressure 142/87 H 136/81 Pulse Oximetry 100 99 07/26/18 00:00 07/26/18 04:00 07/26/18 08:00 Temperature 98.2 F 98.4 F Pulse Rate 96 H 82 110 H Respiratory Rate 18 20 Blood Pressure 128/67 152/101 H Pulse Oximetry 99 100 07/26/18 12:00 07/26/18 13:33 Temperature 98.5 F Pulse Rate 99 H 107 H Respiratory Rate 18 Blood Pressure 149/87 H Pulse Oximetry 100 Intake & Output 07/25/18 07/26/18 07/26/18 18:59 06:59 18:59 Intake Total 4880 / 4880 1390 / 1390 653 / 653 Output Total 5225 / 5225 Balance -345 / -345 1390 / 1390 653 / 653 Weight 77 kg Intake: IV 4880 / 4880 1390 / 1390 418 / 418 D5W/1/2 NS Inj 1,000 ML @ 75 365 / 365 635 / 635 418 / 418 mls/hr IV.CONT .[id number] [facility] Rx# :[id number] [place] 5% Inj 4,000 ML @ As 4000 / 4000 Directed IV.SIG ONCE ONE Rx#: [id number] Vancomycin Inj 1,500 MG In NS 515 / 515 515 / 515 Inj 500 ML @ 250 mls/hr IV.SIG Q12H [facility] Rx#:[id number] Intake (Blood Product) Amt 235 / 235 Pre-Pooled Cryo Thawed 10units 235 / 235 Unit [id number] Output: Urine 1225 / 1225 Plasma Exchange Amount 4000 / 4000 Other: # Voids 1 Date of Last Bowel Movement 07/25/18 07/25/18 07/21/18 06:46 Blood - Peripheral Aerobic Blood Culture - Final No growth in 5 days 07/21/18 06:46 Blood - Peripheral Anaerobic Blood Culture - Final No growth in 5 days 07/21/18 07:00 Blood - Peripheral Aerobic Blood Culture - Final No growth in 5 days 07/21/18 07:00 Blood - Peripheral Anaerobic Blood Culture - Final No growth in 5 days 07/19/18 13:37 Blood - Line Aerobic Blood Culture - Final No growth in 5 days 07/19/18 13:37 Blood - Line Anaerobic Blood Culture - Final No growth in 5 days Lab - Hematology Results 07/26/18 07:35 WBC 1.7 L RBC 2.95 L Hgb 9.7 L Hct 29.4 L MCV 99.6 MCH 32.8 MCHC 32.9 RDW 17.6 H Plt Count 129 L MPV 8.0 Prelim Diff (Auto) Slide review pending Neut % (Auto) 60.4 Lymph % (Auto) 25.9 [place] % (Auto) 10.0 H Eos % (Auto) 3.3 Baso % (Auto) 0.4 Neut # (Auto) 1.0 L Lymph # (Auto) 0.4 L [place] # (Auto) 0.2 Eos # (Auto) 0.1 Baso # (Auto) 0.0 WBC Differential Manual diff final Seg Neuts % (Manual) 46 Lymphocytes % (Manual) 37 Monocytes % (Manual) 9 H Eosinophils % (Manual) 4 Basophils % (Manual) 2 Myelocytes % (Man) 2 H Abs Neuts (Manual) 0.8 L Differential Comment . Platelet Estimate Low L Platelet Morphology Normal Lab - Chemistry Results 07/24/18 07/25/18 07/26/18 23:46 04:11 07:35 Creatinine 0.56 L Estimated GFR Greater than 89 POC Glucose 93 106 Imaging: ITS Impressions Abdomen Ultrasound 06/30/18 00:00 CONCLUSION: 1. The kidneys demonstrate increased echogenicity concerning for medical renal disease. 2. Hepatosplenomegaly. 3. Right pleural effusion. Cervical Spine CT 07/02/18 00:00 CONCLUSION: 1. No acute bony abnormalities within the cervical spine. No canal stenosis identified. 2. Soft tissue swelling of the left neck with small radiopaque foreign bodies in the subcutaneous tissues and locules of air, possibly related to fistulous tract. Thoracic Spine CT 07/02/18 00:00 CONCLUSION: 1. Mild kyphosis. 2. Mild loss of height of several lower thoracic vertebral bodies, stable. 3. No acute compression fracture. Head CT 07/02/18 14:12 CONCLUSION: 1. Stable negative noncontrast CT. . Head MRI 07/03/18 07:05 CONCLUSION: 1. Unremarkable MRI of the brain. Cervical Spine MRI 07/03/18 07:07 CONCLUSION: 1. Focal mild right lateral bulging at C5-6. 2. Otherwise, unremarkable exam for patient's age. Thoracic Spine MRI 07/03/18 07:07 CONCLUSION: 1. Mild broad-based bulging at T10-T11. 2. Mild disc space narrowing from T3 through T7. 3. Mild chronic loss of height of T9, T10 and T11. No abnormal bone marrow signal. Chest CT 07/04/18 00:00 CONCLUSION: 1. No evidence of Pancoast tumor as questioned. 2. Stable 4 mm nodule in the superior segment of the right lower lobe. Routine follow-up of sub-6 mm nodules is not recommended per 2017 Fleischner material. This nodule has been essentially stable for 18 months. 3. Small right and trace left simple appearing pleural effusions. Soft Tissue Neck CT 07/04/18 00:00 CONCLUSION: 1. I do not see evidence for esophageal rupture. Lumbar Puncture Fluoroscopy 07/08/18 00:00 CONCLUSION: Uncomplicated fluoroscopically guided lumbar puncture. Barium Swallow X-Ray 07/12/18 00:00 CONCLUSION: No evidence of penetration of the supraglottic larynx or tracheal aspiration with multiple swallows of thin barium. Chest X-Ray 07/18/18 00:00 CONCLUSION: 1. Mild patchy bilateral nonspecific airspace opacities as described. 2. Elevated left hemidiaphragm again noted. 3. Normal, stable heart size. Cardiac pacer again noted. 4. Right IJ line with distal tip in the right atrium. Tube Removal 07/22/18 18:36 CONCLUSION: 1. Uncomplicated Permcath removal. Catheter Placement 07/25/18 00:00 CONCLUSION: 1. Uncomplicated right IJ Vas-Cath placement as above. Physical Exam: GENERAL: NAD SKIN: Warm and dry. no rash HEAD: Atraumatic. Normocephalic. alopecia on L occipital gordon EYES: Pupils equal and round. No scleral icterus. No injection or drainage. ENT: No nasal bleeding or discharge. Mucous membranes pink and moist. NECK: Trachea midline. No JVD. Pouch with drainage onthe L anterior neck CARDIOVASCULAR: Regular rate and rhythm. RESPIRATORY: No accessory muscle use. Clear to auscultation. Breath sounds equal bilaterally. GASTROINTESTINAL: Abdomen soft, non-tender, nondistended. Hepatic and splenic margins not palpable. MUSCULOSKELETAL: Extremities without clubbing, cyanosis, or edema. No obvious deformities. NEUROLOGICAL: Awake and alert. Normal speech. PSYCHIATRIC: anxious LINE: LUE midline in place - site OK Assessment and Plan - Plan Mult med prob Fistula post esophagectomy GBS, on plasmapheresis MRSA sepsis, high grade, new - sp vascath removal Ent fecalis sepsis Netropenia: persists Netropenic fever: resolved For plasmapheresis will need to use Vascath; OK to put Vascath if more plasmapheresis treatment s are needed cont vancomycin thru 08/19
--- NOTE | 2018-07-26 17:03 | P.CONGI ---
History of Present Illness Consult date: 07/26/18 Consult reason: Gastrostomy tube tubing leaking Patient states he inadvertently cut tube with scissor Chief complaint: ARF; PNA; AMS; Rhabodomylosis History of Present Illness: Patient is a 32-year-old male with past medical history of chronic pain, thrombocytopenia, hepatitis C, neutropenic bacteremia, adrenal insufficiency, seizure disorder, bradycardia with pacemaker and Borehaave syndrome. Patient was admitted to [facility] for suspected [place] Julio syndrome. Bacteremia with neutropenic fever developed, Vas-Cath removed. ID following, new Vas-Cath placed on 07/25/2018. Upon consultation, patient noted to have ostomy collection bag as he is post esophagectomy. Our service has been consulted to evaluate patient for replacement PEG tube as patient states he accidentally cut same with scissor while removing tape. Gastrostomy tubing noted to have small slit on side where there is noted scant leakage of gastric contents. <Darlene Allred - Last Filed: 07/26/18 16:47> Review of Systems All other systems reviewed negative except as stated in HPI <Darlene Allred - Last Filed: 07/26/18 16:47> PMFSH - History History Provided By: Medical Record - Medical History Medical History: Medical History (Last Updated 07/24/18 @ 08:39 by Marva King) Adrenal insufficiency Anxiety Bradycardia Compression fracture Difficult intubation Esophageal rupture Fistula History of MRSA infection Onset Date: ~06/30/18 History of MRSA infection Hypoglycemia Liver disease PTSD (post-traumatic stress disorder) Pacemaker Seizure TIA (transient ischemic attack) - Tobacco History Second Hand Smoke Exposure: Yes Tobacco Use In Past 30 Days: Yes Smoking Status: Current every day smoker Tobacco Type: Cigarettes - Alcohol History How Often Do You Have a Drink Containing Alcohol: Never - Substance Use History Substance History: No History of Abuse - Travel History Recent Travel in the [place] Within the Last 8 Weeks: No Recent Travel Out of the Country Within the Last 8 Weeks: No - Immunization History Tetanus Immunization: Unsure Hx Influenza Vaccine This Season: No <Darlene Allred - Last Filed: 07/26/18 16:47> - Medical History Medical History: Medical History (Last Updated 07/24/18 @ 08:39 by Marva King) Adrenal insufficiency Anxiety Bradycardia Compression fracture Difficult intubation Esophageal rupture Fistula History of MRSA infection Onset Date: ~06/30/18 History of MRSA infection Hypoglycemia Liver disease PTSD (post-traumatic stress disorder) Pacemaker Seizure TIA (transient ischemic attack) <Lorraine Valadez - Last Filed: 07/29/18 13:24> Medications and Allergies Active Medications: Active Medications Acetaminophen (Tylenol Liq) 650 mg PO Q6H PRN PRN Reason: temp > 100.4 Last Admin: 07/19/18 08:37 Dose: 650 mg Al Hydroxide/Mg Hydroxide (Milk Of Magnesia Liq) 30 ml PO Q12H PRN PRN Reason: Mild Constipation Last Admin: 07/07/18 15:45 Dose: 30 ml Albuterol (Duoneb Neb (Prn)) 1 ampul NEB Q2HR NEB PRN PRN Reason: WHEEZING Last Admin: 07/13/18 04:13 Dose: 1 ampul Bisacodyl (Dulcolax Supp) 10 mg RECTAL DAILY PRN PRN Reason: SEVERE CONSITIPATION Fentanyl (Duragesic 25 Mcg Patch.72hr) 1 patch T-DERMAL Q72H [facility] Last Admin: 07/24/18 13:48 Dose: 1 patch Gabapentin (Neurontin) 600 mg PO QID [facility] Last Admin: 07/26/18 12:13 Dose: 600 mg Heparin Sodium (Porcine) (Heparin Central Flush) 0 unit IV.FLUSH DAILY PRN PRN Reason: SEE DOSE INSTRUCTIONS Hydrocortisone Acetate (Cortef) 20 mg PO TID [facility] Last Admin: 07/26/18 12:13 Dose: 20 mg Hydromorphone HCl (Dilaudid) 8 mg PO Q4H PRN PRN Reason: Acute Pain Last Admin: 07/26/18 12:13 Dose: 8 mg Hydromorphone HCl (Dilaudid Pf Inj) 1 mg IV.PUSH Q6H PRN PRN Reason: BREAKTHROUGH PAIN Last Admin: 07/26/18 14:08 Dose: 1 mg Dextrose/Sodium Chloride (D5w/1/2 Ns Inj) 1,000 mls @ 75 mls/hr IV.CONT .[id number] [facility] Last Infusion: 07/26/18 12:14 Dose: 75 mls/hr Vancomycin HCl 1,500 mg/ (Sodium Chloride) 515 mls @ 250 mls/hr IV.SIG Q12H [facility] Last Infusion: 07/26/18 14:14 Dose: 250 mls/hr Lactulose (Lactulose Liq) 30 ml PO DAILY PRN PRN Reason: SEVERE CONSITIPATION Last Admin: 07/19/18 09:15 Dose: 30 ml Levetiracetam (Keppra) 750 mg PO BID [facility] Last Admin: 07/26/18 08:16 Dose: 750 mg Levothyroxine Sodium (Synthroid) 75 mcg PO DAILY@0600 [facility] Last Admin: 07/26/18 06:14 Dose: 75 mcg Lorazepam (Ativan Inj) 1 mg IV.PUSH Q4H PRN PRN Reason: seizures/anxiety Last Admin: 07/26/18 14:07 Dose: 1 mg Naloxone HCl (Narcan Inj) 0.4 mg IV.PUSH Q2M PRN PRN Reason: SEDATION Pantoprazole Sodium (Protonix) 40 mg PO DAILY [facility] Last Admin: 07/26/18 08:16 Dose: 40 mg Patch Removal (Remove Old Patch) 1 each T-DERMAL Q72H [facility] Last Admin: 07/24/18 17:18 Dose: 1 each Patch Removal (Remove Old Patch) 1 each T-DERMAL Q72H [facility] Last Admin: 07/24/18 17:18 Dose: Not Given Pharmacy Profile Note (Vancomycin Consult Pharmacy) 1 each OTHER UNSCH PRN PRN Reason: Pharmacy to dose Quetiapine Fumarate (Seroquel) 400 mg PO BID [facility] Last Admin: 07/03/18 21:19 Dose: Not Given Quetiapine Fumarate (Seroquel) 175 mg PO HS [facility] Sennosides (Senokot) 17.2 mg PO Q12H PRN PRN Reason: Moderate Constipation Sodium Chloride (Ns Flush) 2 ml IV.FLUSH PRN PRN PRN Reason: FLUSH AFTER USING IV ACCESS Last Admin: 07/20/18 21:07 Dose: 2 ml Sodium Chloride (Ns Flush) 0 ml IV.FLUSH PRN PRN PRN Reason: SEE DOSE INSTRUCTIONS Sodium Citrate (Acd-A Solution) 1,000 ml EXTRACORPO Q48H [facility] Stop: 07/27/18 12:46 Last Admin: 07/25/18 17:50 Dose: 1,000 ml Tizanidine HCl (Zanaflex) 4 mg PO Q6H PRN PRN Reason: MUSCLE SPASM Last Admin: 07/26/18 15:45 Dose: 4 mg Whey (Beneprotein Powder) 1 packet G-TUBE BID [facility] Last Admin: 07/26/18 08:18 Dose: Not Given <Darlene Allred - Last Filed: 07/26/18 16:47> Active Medications: Active Medications Acetaminophen (Tylenol Liq) 650 mg PO Q6H PRN PRN Reason: temp > 100.4 Last Admin: 07/28/18 08:39 Dose: 650 mg Al Hydroxide/Mg Hydroxide (Milk Of Magnesia Liq) 30 ml PO Q12H PRN PRN Reason: Mild Constipation Last Admin: 07/07/18 15:45 Dose: 30 ml Albuterol (Duoneb Neb (Prn)) 1 ampul NEB Q2HR NEB PRN PRN Reason: WHEEZING Last Admin: 07/13/18 04:13 Dose: 1 ampul Bisacodyl (Dulcolax Supp) 10 mg RECTAL DAILY PRN PRN Reason: SEVERE CONSITIPATION Diphenhydramine HCl (Benadryl Inj) 25 mg IV.PUSH UNSCH PRN PRN Reason: ALLERGIC REACTION Stop: 07/31/18 23:59 Famotidine (Pepcid Pf Inj) 20 mg IV.PUSH Q48H [facility] Stop: 07/31/18 11:01 Fentanyl (Duragesic 25 Mcg Patch.72hr) 1 patch T-DERMAL Q72H [facility] Last Admin: 07/27/18 13:39 Dose: 1 patch Gabapentin (Neurontin) 600 mg PO QID [facility] Last Admin: 07/29/18 13:22 Dose: 600 mg Heparin Sodium (Porcine) (Heparin Central Flush) 0 unit IV.FLUSH DAILY PRN PRN Reason: SEE DOSE INSTRUCTIONS Last Admin: 07/29/18 11:50 Dose: 1,000 unit Heparin Sodium (Porcine) (Heparin Inj) 1,000 units IV.FLUSH UNSCH PRN PRN Reason: FLUSH AFTER USING IV ACCESS Hydrocortisone Acetate (Cortef) 20 mg PO TID [facility] Last Admin: 07/29/18 13:08 Dose: 20 mg Hydrocortisone Sodium Succinate (Solucortef Inj) 20 mg IV.PUSH Q8HR [facility] Last Admin: 07/29/18 06:25 Dose: 20 mg Hydromorphone HCl (Dilaudid) 8 mg PO Q4H PRN PRN Reason: Acute Pain 1 to 10 Last Admin: 07/29/18 13:08 Dose: 8 mg Hydromorphone HCl (Dilaudid Pf Inj) 1 mg IV.PUSH Q4H PRN PRN Reason: BREAKTHROUGH PAIN Last Admin: 07/29/18 06:24 Dose: 1 mg Dextrose/Sodium Chloride (D5w/1/2 Ns Inj) 1,000 mls @ 75 mls/hr IV.CONT .[id number] [facility] Last Infusion: 07/29/18 06:35 Dose: 75 mls/hr Vancomycin HCl 1,500 mg/ (Sodium Chloride) 515 mls @ 250 mls/hr IV.SIG Q12H [facility] Last Infusion: 07/29/18 02:00 Dose: Infused Albumin Human (Alburx 5% Inj) 4,000 mls @ 250 mls/hr IV.SIG Q48H [facility] Stop: 08/01/18 02:59 Calcium Gluconate 4 gm/ Sodium (Chloride) 290 mls @ 96.667 mls/hr IV.SIG Q48H [facility] Stop: 07/31/18 13:59 Lactulose (Lactulose Liq) 30 ml PO DAILY PRN PRN Reason: SEVERE CONSITIPATION Last Admin: 07/19/18 09:15 Dose: 30 ml Levetiracetam (Keppra) 750 mg PO BID [facility] Last Admin: 07/29/18 08:33 Dose: 750 mg Levothyroxine Sodium (Synthroid) 75 mcg PO DAILY@0600 [facility] Last Admin: 07/29/18 06:24 Dose: 75 mcg Lorazepam (Ativan) 1 mg PO Q6H PRN PRN Reason: ANXIETY Last Admin: 07/29/18 04:01 Dose: 1 mg Miscellaneous Information ([facility] Ordered Lab Info) 0 each OTHER ONCE ONE Stop: 07/31/18 11:46 Naloxone HCl (Narcan Inj) 0.4 mg IV.PUSH Q2M PRN PRN Reason: SEDATION Pantoprazole Sodium (Protonix) 40 mg PO DAILY [facility] Last Admin: 07/29/18 08:35 Dose: 40 mg Patch Removal (Remove Old Patch) 1 each T-DERMAL Q72H [facility] Last Admin: 07/27/18 13:42 Dose: 1 each Patch Removal (Remove Old Patch) 1 each T-DERMAL Q72H [facility] Last Admin: 07/27/18 13:42 Dose: 1 each Pharmacy Profile Note (Vancomycin Consult Pharmacy) 1 each OTHER UNSCH PRN PRN Reason: Pharmacy to dose Quetiapine Fumarate (Seroquel) 400 mg PO BID [facility] Last Admin: 07/03/18 21:19 Dose: Not Given Sennosides (Senokot) 17.2 mg PO Q12H PRN PRN Reason: Moderate Constipation Sodium Chloride (Ns Flush) 2 ml IV.FLUSH PRN PRN PRN Reason: FLUSH AFTER USING IV ACCESS Last Admin: 07/20/18 21:07 Dose: 2 ml Sodium Chloride (Ns Flush) 0 ml IV.FLUSH PRN PRN PRN Reason: SEE DOSE INSTRUCTIONS Sodium Chloride (Ns Flush) 10 ml IV.FLUSH UNSCH PRN PRN Reason: FLUSH AFTER USING IV ACCESS Sodium Citrate (Acd-A Solution) 1,000 ml EXTRACORPO Q48H [facility] Stop: 07/31/18 11:01 Tizanidine HCl (Zanaflex) 4 mg PO Q6H PRN PRN Reason: MUSCLE SPASM Last Admin: 07/29/18 06:24 Dose: 4 mg Trazodone HCl (Desyrel) 50 mg PO HS [facility] Last Admin: 07/28/18 21:47 Dose: 50 mg Whey (Beneprotein Powder) 1 packet G-TUBE BID [facility] Last Admin: 07/29/18 08:40 Dose: Not Given <Lorraine Valadez A - Last Filed: 07/29/18 13:24> Allergies Allergy/AdvReac Type Severity Reaction Status Date / Time codeine Allergy Severe Hives Verified 07/20/18 21:01 tramadol Allergy Severe seizure Verified 07/20/18 21:01 cyclobenzaprine Allergy Unknown Unresponsiv Verified 06/30/18 10:28 e fluvoxamine Allergy Unknown Unresponsiv Verified 06/30/18 10:28 e zolpidem Allergy Unknown Unconscious Verified 06/30/18 10:28 Beta-Blockers Allergy Anaphylaxis Verified 06/30/18 10:28 (Beta-Adrenergic Bloc MRI PRECAUTION AdvReac Severe NON REVO Uncoded 08/04/17 18:49 PACEMAKER Home Medications Medication Instructions Recorded Confirmed Type albuterol sulfate [Proventil HFA] INHALATION Q3-4H PRN 06/30/18 History fentanyl 1 patch TRANSDERMAL Q72H 06/30/18 06/30/18 History gabapentin 300 mg PO TID 06/30/18 06/30/18 History levetiracetam [Keppra] 750 mg PO BID 06/30/18 06/30/18 History levothyroxine [Synthroid] 75 mcg PO DAILY 06/30/18 06/30/18 History lorazepam [Ativan] 1 mg PO BID 06/30/18 06/30/18 History morphine 15 mg PO Q4-6H PRN 06/30/18 06/30/18 History quetiapine [Seroquel] 400 mg PO BID 06/30/18 06/30/18 History Exam Vital signs: Vital Signs 07/25/18 20:00 07/25/18 23:51 07/26/18 00:00 Temperature 98.3 F 97.9 F Pulse Rate 120 H 92 H 96 H Respiratory Rate 18 18 Blood Pressure 142/87 H 136/81 Pulse Oximetry 100 99 07/26/18 04:00 07/26/18 08:00 07/26/18 12:00 Temperature 98.2 F 98.4 F Pulse Rate 82 110 H 99 H Respiratory Rate 18 20 Blood Pressure 128/67 152/101 H Pulse Oximetry 99 100 07/26/18 13:33 Temperature 98.5 F Pulse Rate 107 H Respiratory Rate 18 Blood Pressure 149/87 H Pulse Oximetry 100 Intake & Output 07/25/18 07/26/18 07/26/18 18:59 06:59 18:59 Intake Total 4880 / 4880 1390 / 1390 653 / 653 Output Total 5225 / 5225 Balance -345 / -345 1390 / 1390 653 / 653 Weight 77 kg Intake: IV 4880 / 4880 1390 / 1390 418 / 418 D5W/1/2 NS Inj 1,000 ML @ 75 365 / 365 635 / 635 418 / 418 mls/hr IV.CONT .[id number] [facility] Rx# :[id number] Alburx 5% Inj 4,000 ML @ As 4000 / 4000 Directed IV.SIG ONCE ONE Rx#: [id number] Vancomycin Inj 1,500 MG In NS 515 / 515 515 / 515 Inj 500 ML @ 250 mls/hr IV.SIG Q12H [facility] Rx#:[id number] Intake (Blood Product) Amt 235 / 235 Pre-Pooled Cryo Thawed 10units 235 / 235 Unit [id number] Output: Urine 1225 / 1225 Plasma Exchange Amount 4000 / 4000 Other: # Voids 1 Date of Last Bowel Movement 07/25/18 07/25/18 - Constitutional no acute distress, thin, chronically ill appearing - Routine HEENT Exam Head: Present: normocephalic ENT: Present: mucous membranes moist Comments: Post esophagectomy Stoma drainage bag - Routine Respiratory Exam Present: CTA bilaterally. Absent: accessory muscle use - Routine Cardiovascular Exam Present: RRR - Routine Abdominal Exam Present: soft, normoactive bowel sounds, surgical scars, ostomy. Absent: tenderness, distended - Routine Extremities Exam Absent: edema - Routine Skin Exam Present: dry, warm <Allred,Darlene - Last Filed: 07/26/18 16:47> Vital signs: Vital Signs 07/28/18 16:00 07/28/18 20:00 07/29/18 00:00 Temperature 98.2 F 97.1 F L 96.2 F L Pulse Rate 83 61 86 Respiratory Rate 14 18 20 Blood Pressure 132/75 121/66 147/84 H Pulse Oximetry 97 96 99 07/29/18 04:00 07/29/18 08:00 07/29/18 12:00 Temperature 96.2 F L 97.9 F Pulse Rate 70 76 87 Respiratory Rate 19 18 Blood Pressure 140/88 113/49 L Pulse Oximetry 100 97 07/29/18 12:20 07/29/18 13:06 Temperature Pulse Rate 80 93 H Respiratory Rate Blood Pressure 167/97 H 155/96 H Pulse Oximetry 100 Intake & Output 07/28/18 07/29/18 07/29/18 18:59 06:59 18:59 Intake Total 2074 Balance 2074 Weight 70.5 kg Intake: IV 1115 / 1115 1308 / 1308 D5W/1/2 NS Inj 1,000 ML @ 75 600 / 600 793 / 793 mls/hr IV.CONT .[id number] [facility] Rx# :[id number] Vancomycin Inj 1,500 MG In NS 515 / 515 515 / 515 Inj 500 ML @ 250 mls/hr IV.SIG Q12H [facility] Rx#:[id number] Oral 960 / 960 800 / 800 Other: # Voids 4 5 <Allyson,Mohfrank Chan - Last Filed: 07/29/18 13:24> Results - Labs CBC & Chem 7: 07/26/18 07:35 07/26/18 07:35 Labs: Laboratory Results - last 24 hr 07/26/18 07/26/18 07/26/18 07:35 07:35 07:35 WBC 1.7 L RBC 2.95 L Hgb 9.7 L Hct 29.4 L MCV 99.6 MCH 32.8 MCHC 32.9 RDW 17.6 H Plt Count 129 L MPV 8.0 Prelim Diff (Auto) Slide review pending Neut % (Auto) 60.4 Lymph % (Auto) 25.9 [place] % (Auto) 10.0 H Eos % (Auto) 3.3 Baso % (Auto) 0.4 Neut # (Auto) 1.0 L Lymph # (Auto) 0.4 L [place] # (Auto) 0.2 Eos # (Auto) 0.1 Baso # (Auto) 0.0 WBC Differential Manual diff final Seg Neuts % (Manual) 46 Lymphocytes % (Manual) 37 Monocytes % (Manual) 9 H Eosinophils % (Manual) 4 Basophils % (Manual) 2 Myelocytes % (Man) 2 H Abs Neuts (Manual) 0.8 L Differential Comment . Platelet Estimate Low L Platelet Morphology Normal Fibrinogen 117 L Creatinine 0.56 L Estimated GFR Greater than 89 Vancomycin Trough Blood Bank Comment 07/26/18 07/26/18 10:14 11:30 WBC RBC Hgb Hct MCV MCH MCHC RDW Plt Count MPV Prelim Diff (Auto) Neut % (Auto) Lymph % (Auto) [place] % (Auto) Eos % (Auto) Baso % (Auto) Neut # (Auto) Lymph # (Auto) [place] # (Auto) Eos # (Auto) Baso # (Auto) WBC Differential Seg Neuts % (Manual) Lymphocytes % (Manual) Monocytes % (Manual) Eosinophils % (Manual) Basophils % (Manual) Myelocytes % (Man) Abs Neuts (Manual) Differential Comment Platelet Estimate Platelet Morphology Fibrinogen Creatinine Estimated GFR Vancomycin Trough 17.3 H Blood Bank Comment <Darlene Allred - Last Filed: 07/26/18 16:47> - Labs CBC & Chem 7: 07/29/18 06:03 07/28/18 04:40 Labs: Laboratory Results - last 24 hr 07/28/18 07/29/18 07/29/18 18:08 00:04 06:03 WBC RBC Hgb Hct MCV MCH MCHC RDW Plt Count MPV Neut % (Auto) Lymph % (Auto) [place] % (Auto) Eos % (Auto) Baso % (Auto) Neut # (Auto) Lymph # (Auto) [place] # (Auto) Eos # (Auto) Baso # (Auto) WBC Differential Differential Comment PT 11.9 H INR 1.2 APTT 33.6 H D Fibrinogen 160 L POC Glucose 132 H 124 H 07/29/18 07/29/18 06:03 10:41 WBC 6.8 RBC 2.98 L Hgb 9.9 L Hct 29.0 L MCV 97.2 MCH 33.2 MCHC 34.2 RDW 17.1 Plt Count 135 L MPV 8.6 Neut % (Auto) 80.3 H Lymph % (Auto) 11.7 [place] % (Auto) 7.3 Eos % (Auto) 0.5 Baso % (Auto) 0.2 Neut # (Auto) 5.5 Lymph # (Auto) 0.8 L [place] # (Auto) 0.5 Eos # (Auto) 0.0 Baso # (Auto) 0.0 WBC Differential . Differential Comment Auto diff final PT INR APTT Fibrinogen POC Glucose 107 - Imaging Impressions Chest X-Ray 07/28/18 00:00 CONCLUSION: No acute cardiopulmonary disease. <Lorraine Valadez - Last Filed: 07/29/18 13:24> Assessment and Plan (1) Encounter for PEG (percutaneous endoscopic gastrostomy) Status: Acute Code(s): Z43.1 - Encounter for attention to gastrostomy - Plan Patient is a 32-year-old male with past medical history of chronic pain, thrombocytopenia, hepatitis C, neutropenic bacteremia, adrenal insufficiency, seizure disorder, bradycardia with pacemaker and Borehaave syndrome. Patient was admitted to [facility] for suspected [place] Julio syndrome. Bacteremia with neutropenic fever developed, Vas-Cath removed. ID following, new Vas-Cath placed on 07/25/2018. Upon consultation, patient noted to have ostomy collection bag as he is post esophagectomy. Our service has been consulted to evaluate patient for replacement PEG tube as patient states he accidentally cut same with scissor while removing tape. Gastrostomy tubing noted to have small slit on side where there is noted scant leakage of gastric contents PEG tube replacement Gastrostomy tube accidentally cut with scissor by patient while he was removing tape. Small slit noted on side with there is now scant leakage of gastric contents. Plan -Obtain consent for PEG tube placement -Continue IV hydration -Supportive care -Further recommendations to follow This patient has been seen by myself and Dr. Valadez and this note is written on his behalf - Attending Attestation Dr. Valadez <Darlene Allred - Last Filed: 07/26/18 16:47> (1) Encounter for PEG (percutaneous endoscopic gastrostomy) Status: Acute Code(s): Z43.1 - Encounter for attention to gastrostomy - Attending Attestation Will try to adjust at bed side, otherwise replacement. <Lorraine Valadez - Last Filed: 07/29/18 13:24>
--- NOTE | 2018-07-26 17:17 | MB ---
cc: Driss Ibrahim MD DATE: 07/26/2018 HISTORY OF PRESENT ILLNESS: The patient is seen in followup in room 1407. He had his Vascath replacement and fourth treatment with plasmapheresis yesterday and tolerated it well. He does not feel any improvement in his neurologic status yet since he had approximately a week off from plasmapheresis before resuming therapy yesterday. He will have his fifth treatment tomorrow. He is hemodynamically stable and does not have any more fevers and his white count is normal. He has no new complaints. REVIEW OF SYSTEMS: Negative for headaches or blurring of vision. No chest pain or shortness of breath. No abdominal pain or distention. No frequency, urgency or hematuria. PHYSICAL EXAMINATION: VITAL SIGNS: Stable. He is afebrile. HEENT: Pallor present. No icterus. NECK: No lymphadenopathy in the neck or axilla. The rest of the physical examination not performed today. I reviewed his labs and treatment options with him. 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 Unfortunately, his white count dropped along with platelets possibly secondary to varices and also was noted to have Enterococcus faecalis sepsis, treated with antibiotics by Dr. Lopez, who is following the case. Currently, he is going to continue vancomycin for another several weeks. In addition, he will continue his plasmapheresis on Sunday07/27/2018 and I ordered cryoprecipitate today as fibrinogen is down to 1.7. Discussed with the patient and answered all has questions. Hematology will followup in the hospital. MD SEAN Kulkarni/amelia , 04:41 PM , 04:48 PM
--- NOTE | 2018-07-26 18:43 | P.PNNEU ---
Subjective Subjective Comments: Pt reports improvement in strength and dystonia when previously receiving plasmapheresis, But has had increase in weakness when pheresis held. He has had 4 total treatments and #5 due tomorrow Active Medications: Active Medications Acetaminophen (Tylenol Liq) 650 mg PO Q6H PRN PRN Reason: temp > 100.4 Last Admin: 07/19/18 08:37 Dose: 650 mg Al Hydroxide/Mg Hydroxide (Milk Of Magnesia Liq) 30 ml PO Q12H PRN PRN Reason: Mild Constipation Last Admin: 07/07/18 15:45 Dose: 30 ml Albuterol (Duoneb Neb (Prn)) 1 ampul NEB Q2HR NEB PRN PRN Reason: WHEEZING Last Admin: 07/13/18 04:13 Dose: 1 ampul Bisacodyl (Dulcolax Supp) 10 mg RECTAL DAILY PRN PRN Reason: SEVERE CONSITIPATION Fentanyl (Duragesic 25 Mcg Patch.72hr) 1 patch T-DERMAL Q72H [facility] Last Admin: 07/24/18 13:48 Dose: 1 patch Gabapentin (Neurontin) 600 mg PO QID [facility] Last Admin: 07/26/18 17:12 Dose: 600 mg Heparin Sodium (Porcine) (Heparin Central Flush) 0 unit IV.FLUSH DAILY PRN PRN Reason: SEE DOSE INSTRUCTIONS Hydrocortisone Acetate (Cortef) 20 mg PO TID [facility] Last Admin: 07/26/18 17:12 Dose: 20 mg Hydromorphone HCl (Dilaudid) 8 mg PO Q4H PRN PRN Reason: Acute Pain Last Admin: 07/26/18 16:42 Dose: 8 mg Hydromorphone HCl (Dilaudid Pf Inj) 1 mg IV.PUSH Q6H PRN PRN Reason: BREAKTHROUGH PAIN Last Admin: 07/26/18 14:08 Dose: 1 mg Dextrose/Sodium Chloride (D5w/1/2 Ns Inj) 1,000 mls @ 75 mls/hr IV.CONT .[id number] [facility] Last Infusion: 07/26/18 12:14 Dose: 75 mls/hr Vancomycin HCl 1,500 mg/ (Sodium Chloride) 515 mls @ 250 mls/hr IV.SIG Q12H [facility] Last Infusion: 07/26/18 14:14 Dose: 250 mls/hr Lactulose (Lactulose Liq) 30 ml PO DAILY PRN PRN Reason: SEVERE CONSITIPATION Last Admin: 07/19/18 09:15 Dose: 30 ml Levetiracetam (Keppra) 750 mg PO BID [facility] Last Admin: 07/26/18 08:16 Dose: 750 mg Levothyroxine Sodium (Synthroid) 75 mcg PO DAILY@0600 [facility] Last Admin: 07/26/18 06:14 Dose: 75 mcg Lorazepam (Ativan Inj) 1 mg IV.PUSH Q4H PRN PRN Reason: seizures/anxiety Last Admin: 07/26/18 14:07 Dose: 1 mg Naloxone HCl (Narcan Inj) 0.4 mg IV.PUSH Q2M PRN PRN Reason: SEDATION Pantoprazole Sodium (Protonix) 40 mg PO DAILY [facility] Last Admin: 07/26/18 08:16 Dose: 40 mg Patch Removal (Remove Old Patch) 1 each T-DERMAL Q72H [facility] Last Admin: 07/24/18 17:18 Dose: 1 each Patch Removal (Remove Old Patch) 1 each T-DERMAL Q72H [facility] Last Admin: 07/24/18 17:18 Dose: Not Given Pharmacy Profile Note (Vancomycin Consult Pharmacy) 1 each OTHER UNSCH PRN PRN Reason: Pharmacy to dose Quetiapine Fumarate (Seroquel) 400 mg PO BID [facility] Last Admin: 07/03/18 21:19 Dose: Not Given Quetiapine Fumarate (Seroquel) 175 mg PO [facility] Sennosides (Senokot) 17.2 mg PO Q12H PRN PRN Reason: Moderate Constipation Sodium Chloride (Ns Flush) 2 ml IV.FLUSH PRN PRN PRN Reason: FLUSH AFTER USING IV ACCESS Last Admin: 07/20/18 21:07 Dose: 2 ml Sodium Chloride (Ns Flush) 0 ml IV.FLUSH PRN PRN PRN Reason: SEE DOSE INSTRUCTIONS Sodium Citrate (Acd-A Solution) 1,000 ml EXTRACORPO Q48H [facility] Stop: 07/27/18 12:46 Last Admin: 07/25/18 17:50 Dose: 1,000 ml Tizanidine HCl (Zanaflex) 4 mg PO Q6H PRN PRN Reason: MUSCLE SPASM Last Admin: 07/26/18 15:45 Dose: 4 mg Whey (Beneprotein Powder) 1 packet G-TUBE BID [facility] Last Admin: 07/26/18 08:18 Dose: Not Given Allergies/Adverse Reactions: Allergies Allergy/AdvReac Type Severity Reaction Status Date / Time codeine Allergy Severe Hives Verified 07/20/18 21:01 tramadol Allergy Severe seizure Verified 07/20/18 21:01 cyclobenzaprine Allergy Unknown Unresponsiv Verified 06/30/18 10:28 e fluvoxamine Allergy Unknown Unresponsiv Verified 06/30/18 10:28 e zolpidem Allergy Unknown Unconscious Verified 06/30/18 10:28 Beta-Blockers Allergy Anaphylaxis Verified 06/30/18 10:28 (Beta-Adrenergic Bloc MRI PRECAUTION AdvReac Severe NON REVO Uncoded 08/04/17 18:49 PACEMAKER Physical Exam Vital signs: Vital Signs 07/25/18 20:00 07/25/18 23:51 07/26/18 00:00 Temperature 98.3 F 97.9 F Pulse Rate 120 H 92 H 96 H Respiratory Rate 18 18 Blood Pressure 142/87 H 136/81 Pulse Oximetry 100 99 07/26/18 04:00 07/26/18 08:00 07/26/18 12:00 Temperature 98.2 F 98.4 F Pulse Rate 82 110 H 99 H Respiratory Rate 18 20 Blood Pressure 128/67 152/101 H Pulse Oximetry 99 100 07/26/18 13:33 07/26/18 16:00 Temperature 98.5 F Pulse Rate 107 H 68 Respiratory Rate 18 Blood Pressure 149/87 H Pulse Oximetry 100 Intake & Output 07/25/18 07/26/18 07/26/18 18:59 06:59 18:59 Intake Total 4880 / 4880 1390 / 1390 653 / 653 Output Total 5225 / 5225 Balance -345 / -345 1390 / 1390 653 / 653 Weight 77 kg Intake: IV 4880 / 4880 1390 / 1390 418 / 418 D5W/1/2 NS Inj 1,000 ML @ 75 365 / 365 635 / 635 418 / 418 mls/hr IV.CONT .[id number] [facility] Rx# :[id number] [place] 5% Inj 4,000 ML @ As 4000 / 4000 Directed IV.SIG ONCE ONE Rx#: [id number] Vancomycin Inj 1,500 MG In NS 515 / 515 515 / 515 Inj 500 ML @ 250 mls/hr IV.SIG Q12H [facility] Rx#:[id number] Intake (Blood Product) Amt 235 / 235 Pre-Pooled Cryo Thawed 10units 235 / 235 Unit [id number] Output: Urine 1225 / 1225 Plasma Exchange Amount 4000 / 4000 Other: # Voids 1 Date of Last Bowel Movement 07/25/18 07/25/18 - Routine Neurological Exam alert, speech normal CN intact MOTOR 4/5 BUE and BLE Objective Laboratory Results - last 24 hr 07/26/18 07/26/18 07/26/18 07:35 07:35 07:35 WBC 1.7 L RBC 2.95 L Hgb 9.7 L Hct 29.4 L MCV 99.6 MCH 32.8 MCHC 32.9 RDW 17.6 H Plt Count 129 L MPV 8.0 Prelim Diff (Auto) Slide review pending Neut % (Auto) 60.4 Lymph % (Auto) 25.9 [place] % (Auto) 10.0 H Eos % (Auto) 3.3 Baso % (Auto) 0.4 Neut # (Auto) 1.0 L Lymph # (Auto) 0.4 L [place] # (Auto) 0.2 Eos # (Auto) 0.1 Baso # (Auto) 0.0 WBC Differential Manual diff final Seg Neuts % (Manual) 46 Lymphocytes % (Manual) 37 Monocytes % (Manual) 9 H Eosinophils % (Manual) 4 Basophils % (Manual) 2 Myelocytes % (Man) 2 H Abs Neuts (Manual) 0.8 L Differential Comment . Platelet Estimate Low L Platelet Morphology Normal Fibrinogen 117 L Creatinine 0.56 L Estimated GFR Greater than 89 Vancomycin Trough Blood Bank Comment 07/26/18 07/26/18 10:14 11:30 WBC RBC Hgb Hct MCV MCH MCHC RDW Plt Count MPV Prelim Diff (Auto) Neut % (Auto) Lymph % (Auto) [place] % (Auto) Eos % (Auto) Baso % (Auto) Neut # (Auto) Lymph # (Auto) [place] # (Auto) Eos # (Auto) Baso # (Auto) WBC Differential Seg Neuts % (Manual) Lymphocytes % (Manual) Monocytes % (Manual) Eosinophils % (Manual) Basophils % (Manual) Myelocytes % (Man) Abs Neuts (Manual) Differential Comment Platelet Estimate Platelet Morphology Fibrinogen Creatinine Estimated GFR Vancomycin Trough 17.3 H Blood Bank Comment Microbiology 07/21/18 06:46 Aerobic Blood Culture - Final Blood - Peripheral No growth in 5 days Anaerobic Blood Culture - Final No growth in 5 days 07/21/18 07:00 Aerobic Blood Culture - Final Blood - Peripheral No growth in 5 days Anaerobic Blood Culture - Final No growth in 5 days Review/Management - Diagnosis (1) Myelopathy Code(s): G95.9 - Disease of spinal cord, unspecified Status: Acute Current Visit: Yes - Review/Management Plan: Recommend an additional 3 plasmapheresis (total of 7)
[2018-07-26] MEDS ORDERED: QUEtiapine 25 MG Tablet PO SCH (21:00)
[2018-07-27] MEDS: Beneprotein Powder Packet G-TUBE SCH ×3 (03:17→20:09)
[2018-07-27] MEDS: Vancomycin Inj 1,500 MG in Sodium Chlor 0.9% Inj 500 ML IV.SIG SCH ×3 (03:19→23:26)
[2018-07-27] MEDS: HYDROmorphone PF Inj 0.5 MG/0.5 ML Syringe IV.PUSH PRN ×3 (03:27→20:08)
[2018-07-27] MEDS: Levothyroxine 75 MCG Tablet PO SCH (06:22)
[2018-07-27] MEDS: levETIRAcetam 250 MG Tablet PO SCH ×2 (08:58→20:09)
[2018-07-27] MEDS: Gabapentin 300 MG Capsule PO SCH ×4 (08:58→20:08)
[2018-07-27] MEDS: Hydrocortisone 10 MG Tablet PO SCH ×3 (08:58→17:24)
[2018-07-27] MEDS: Dextrose 5%/NaCl 0.45% Inj 1,000 ML IV.CONT SCH ×3 (08:59→22:20)
[2018-07-27] MEDS ORDERED: LORazepam 1 MG Tablet PO PRN (10:40)
[2018-07-27 11:38] LABS: Hematocrit 23.4 % (39.0-51.0); Red Blood Count 2.37 mil/mm3 (4.50-5.90); White Blood Count 0.9 th/mm3 (4.0-11.0)
[2018-07-27 11:39] LABS: Baso % (Auto) 1.5 % (0.0-2.0); Eos # (Auto) 0.1 th/mm3 (0.0-0.4); Eos % (Auto) 8.4 % (0.0-4.0); Lymph # (Auto) 0.3 th/mm3 (1.0-4.8); Lymph % (Auto) 30.4 % (9.0-44.0); Mean Corpuscular HGB Conc 33.9 % (32.0-36.0); Mean Corpuscular Hemoglobin 33.6 pg (27.0-34.0); Mean Corpuscular Volume 98.9 fL (80.0-100.0); Mono # (Auto) 0.1 th/mm3 (0.0-0.9); Mono % (Auto) 14.1 % (0.0-8.0); Neut # (Auto) 0.4 th/mm3 (1.8-7.7); Neut % (Auto) 45.6 % (16.0-70.0); Platelet Count 119 th/mm3 (150-450); Red Cell Distribution Width 17.2 % (11.6-17.2)
[2018-07-27] MEDS: Anticoagulant Citrate Dextrose 1,000 ML Solution EXTRACORPO SCH (12:11)
[2018-07-27 12:27] LABS: Eosinophils 6 % (0-4); Lymphocytes 34 % (9-44); Monocytes 14 % (0-8); Plasma Cells 1 % (0-0)
[2018-07-27 12:30] LABS: Platelet Morphology Normal (Normal)
--- NOTE | 2018-07-27 14:55 | P.PNONC ---
Subjective Interval history: The patient indicates that he is unequivocally better following plasma exchange. He is stronger. Balance is better. He has less diffuse pain. Objective Vital Signs/Intake & Output: Vital Signs 07/26/18 16:00 07/26/18 20:00 07/27/18 00:00 Temperature 97.7 F 99.1 F 98.9 F Pulse Rate 79 97 H 68 Respiratory Rate 20 16 16 Blood Pressure 142/84 H 158/76 H 129/71 Pulse Oximetry 98 95 96 07/27/18 04:00 07/27/18 08:00 Temperature 98.6 F 98.6 F Pulse Rate 70 102 H Respiratory Rate 16 17 Blood Pressure 131/63 137/95 H Pulse Oximetry 96 100 Intake & Output 07/26/18 07/27/18 07/27/18 18:59 06:59 18:59 Intake Total 1613 / 1613 1515 / 1515 Output Total 700 / 700 4700 / 4700 Balance 1613 / 1613 815 / 815 -4700 / -4700 Weight 77.3 kg Intake: IV 418 / 418 1515 / 1515 D5W/1/2 NS Inj 1,000 ML @ 75 418 / 418 1000 / 1000 mls/hr IV.CONT .[id number] [facility] Rx# :[id number] Vancomycin Inj 1,500 MG In NS 515 / 515 Inj 500 ML @ 250 mls/hr IV.SIG Q12H [facility] Rx#:[id number] Oral 960 / 960 Intake (Blood Product) Amt 235 / 235 Pre-Pooled Cryo Thawed 10units 235 / 235 Unit [id number] Output: Urine 700 / 700 700 / 700 Plasma Exchange Amount 4000 / 4000 Other: # Voids 4 1 Date of Last Bowel Movement 07/25/18 07/25/18 # Bowel Movements 1 Result Diagrams: 07/27/18 10:50 07/26/18 07:35 Laboratory Results: Laboratory Results - last 24 hr 07/27/18 10:50 WBC 0.9 L RBC 2.37 L Hgb 8.0 L Hct 23.4 L MCV 98.9 MCH 33.6 MCHC 33.9 RDW 17.2 Plt Count 119 L MPV 8.0 Prelim Diff (Auto) Slide review pending Neut % (Auto) 45.6 Lymph % (Auto) 30.4 [place] % (Auto) 14.1 H Eos % (Auto) 8.4 H Baso % (Auto) 1.5 Neut # (Auto) 0.4 L* Lymph # (Auto) 0.3 L [place] # (Auto) 0.1 Eos # (Auto) 0.1 Baso # (Auto) 0.0 WBC Differential Manual diff final Seg Neuts % (Manual) 29 Band Neuts % (Manual) 15 H Lymphocytes % (Manual) 34 Monocytes % (Manual) 14 H Eosinophils % (Manual) 6 H Basophils % (Manual) 1 Plasma Cell % (Manual) 1 H Abs Neuts (Manual) 0.4 L* Differential Comment . Platelet Estimate Low L Platelet Morphology Normal Culture Results: Microbiology 07/21/18 06:46 Aerobic Blood Culture - Final Blood - Peripheral No growth in 5 days Anaerobic Blood Culture - Final No growth in 5 days 07/21/18 07:00 Aerobic Blood Culture - Final Blood - Peripheral No growth in 5 days Anaerobic Blood Culture - Final No growth in 5 days 07/19/18 13:37 Aerobic Blood Culture - Final Blood - Line No growth in 5 days Anaerobic Blood Culture - Final No growth in 5 days Medications: Active Medications Generic Name Dose Route Start Last Admin Trade Name Freq PRN Reason Stop Dose Admin Acetaminophen 650 mg 07/18/18 22:53 07/19/18 08:37 Tylenol Liq PO 650 mg Q6H PRN Administration temp > 100.4 Al Hydroxide/Mg Hydroxide 30 ml 06/30/18 11:38 07/07/18 15:45 Milk Of Magnesia Liq PO 30 ml Q12H PRN Administration Mild Constipation Albuterol 1 ampul 06/30/18 11:38 07/13/18 04:13 Duoneb Neb (Prn) NEB 1 ampul Q2HR NEB PRN Administration WHEEZING Fentanyl 1 patch 07/03/18 13:15 07/27/18 13:39 Duragesic 25 Mcg Patch.72hr T-DERMAL 1 patch Q72H [facility] Administration Gabapentin 600 mg 07/18/18 18:00 07/27/18 13:42 Neurontin PO 600 mg QID [facility] Administration Hydrocortisone Acetate 20 mg 07/16/18 09:00 07/27/18 13:42 Cortef PO 20 mg TID [facility] Administration Hydromorphone HCl 8 mg 07/25/18 15:46 07/27/18 13:41 Dilaudid PO 8 mg Q4H PRN Administration Acute Pain Hydromorphone HCl 1 mg 07/26/18 12:07 07/27/18 11:31 Dilaudid Pf Inj IV.PUSH 1 mg Q6H PRN Administration BREAKTHROUGH PAIN Dextrose/Sodium Chloride 1,000 mls @ 75 mls/hr 07/05/18 16:28 07/27/18 08:59 D5w/1/2 Ns Inj IV.CONT Not Given .[id number] [facility] Vancomycin HCl 1,500 mg/ 515 mls @ 250 mls/hr 07/21/18 12:00 07/27/18 13:41 Sodium Chloride IV.SIG 250 mls/hr Q12H [facility] Administration Lactulose 30 ml 06/30/18 11:38 07/19/18 09:15 Lactulose Liq PO 30 ml DAILY PRN Administration SEVERE CONSITIPATION Levetiracetam 750 mg 07/03/18 21:00 07/27/18 08:58 Keppra PO 750 mg BID [facility] Administration Levothyroxine Sodium 75 mcg 07/04/18 06:00 07/27/18 06:22 Synthroid PO 75 mcg DAILY@0600 [facility] Administration Lorazepam 1 mg 07/09/18 23:04 07/27/18 13:40 Ativan Inj IV.PUSH 07/27/18 23:55 1 mg Q4H PRN Administration seizures/anxiety Pantoprazole Sodium 40 mg 07/07/18 09:00 07/27/18 08:58 Protonix PO 40 mg DAILY [facility] Administration Patch Removal 1 each 07/03/18 13:00 07/27/18 13:42 Remove Old Patch T-DERMAL 1 each Q72H [facility] Administration Patch Removal 1 each 07/03/18 13:00 07/27/18 13:42 Remove Old Patch T-DERMAL 1 each Q72H [facility] Administration Quetiapine Fumarate 400 mg 07/03/18 21:00 07/03/18 21:19 Seroquel PO Not Given BID [facility] Sodium Chloride 2 ml 06/30/18 09:58 07/20/18 21:07 Ns Flush IV.FLUSH 2 ml PRN PRN Administration FLUSH AFTER USING IV ACCESS Tizanidine HCl 4 mg 07/23/18 01:00 07/27/18 10:08 Zanaflex PO 4 mg Q6H PRN Administration MUSCLE SPASM Whey 1 packet 07/10/18 21:00 07/27/18 08:59 Beneprotein Powder G-TUBE Not Given BID [facility] Objective Remarks: GENERAL: Patient in no distress. He is gaunt. He has a gastrostomy tube, a ostomy tube over the soft esophagus and a Vas-Cath right neck. There is no evidence of infection at any of the sites. SKIN: Warm and dry. HEAD: Normocephalic. EYES: No scleral icterus. No injection or drainage. NECK: Ostomy over tracheal esophageal area LYMPHATIC: No adenopathy. CARDIOVASCULAR: Regular rate and rhythm without murmurs. RESPIRATORY: Breath sounds equal bilaterally. No accessory muscle use. GASTROINTESTINAL: Abdomen soft, non-tender, nondistended. Has G-tube. No infection. EXTREMITIES: Thin legs with muscle wasting MUSCULOSKELETAL: Poor muscle tone NEUROLOGICAL: By history much stronger. Able to ambulate well. PSYCHIATRIC: Appropriate mood and affect; insight and judgment normal. 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 Oncology consulted for further recommendations. 1. There is no question that the patient is improving with plasma exchange and therefore it is desirable to continue to complete the 7 treatments as suggested by Dr. Jones. At the same time there is another problem. He has severe, recurrent neutropenia. This is in fact not a new problem. On 01/16/2018 he underwent a bone marrow aspirate and biopsy at [facility] for the evaluation of anemia and neutropenia. The bone marrow was not diagnostic. It was normocellular. There was a slightly increased proportion of myeloid precursors. It is not obvious why he is neutropenic. It appears to be temporally related to the plasma exchange but this is not a new problem and predates the plasma exchange. He is taking Keppra and Seroquel which both can cause neutropenia, but infrequently. Will for the moment discontinue the Seroquel and use another medicine for sleep. I have ordered a rheumatoid factor and ALAN. In order to proceed with a plasma exchange I am going to give him Neupogen. His neutrophil count is presently 400 and under ordinary circumstances I would stop the plasma exchange but given the seriousness of his illness, I will continue the plasma exchanges and support him with Neupogen. In the future it might be necessary to discontinue the Keppra and try another medicine. Unfortunately it remains unclear as to why this gentleman is having neutropenia. He has had multiple problems poorly explained and I wonder if there is some underlying illness we are missing. Cyclic neutropenia would be another consideration but I do not have enough CBC and platelet counts to support this diagnosis. Dr. Quezada will return Sunday to help assist with continued evaluation.
[2018-07-27] MEDS ORDERED: Filgrastim Inj 300 MCG/ML Vial SQ SCH (15:00)
[2018-07-27] MEDS ORDERED: fentaNYL Citrate Inj 100 MCG/2 ML Ampul ONE (16:39)
--- NOTE | 2018-07-27 16:41 | P.PNGI ---
Subjective Interval history: Patient came for possible peg tube replacement .He is s/p esophagectomy with spit fistulae, peg was placed by thoracic surgeon initially, than changed over wire by IR.Did not have endoscopy for it .Also neutropenic today . due to the above he will be better served by IR consultation Physical Exam Vital signs: Vital Signs 07/26/18 20:00 07/27/18 00:00 07/27/18 04:00 Temperature 99.1 F 98.9 F 98.6 F Pulse Rate 97 H 68 70 Respiratory Rate 16 16 16 Blood Pressure 158/76 H 129/71 131/63 Pulse Oximetry 95 96 96 07/27/18 08:00 Temperature 98.6 F Pulse Rate 102 H Respiratory Rate 17 Blood Pressure 137/95 H Pulse Oximetry 100 Intake & Output 07/26/18 07/27/18 07/27/18 18:59 06:59 18:59 Intake Total 1613 / 1613 1515 / 1515 Output Total 700 / 700 4700 / 4700 Balance 1613 / 1613 815 / 815 -4700 / -4700 Weight 77.3 kg Intake: IV 418 / 418 1515 / 1515 D5W/1/2 NS Inj 1,000 ML @ 75 418 / 418 1000 / 1000 mls/hr IV.CONT .[id number] [facility] Rx# :[id number] Vancomycin Inj 1,500 MG In NS 515 / 515 Inj 500 ML @ 250 mls/hr IV.SIG Q12H [facility] Rx#:[id number] Oral 960 / 960 Intake (Blood Product) Amt 235 / 235 Pre-Pooled Cryo Thawed 10units 235 / 235 Unit [id number] Output: Urine 700 / 700 700 / 700 Plasma Exchange Amount 4000 / 4000 Other: # Voids 4 1 Date of Last Bowel Movement 07/25/18 07/25/18 # Bowel Movements 1 - Constitutional thin, cachectic - Routine HEENT Exam Head: Present: normocephalic Eye: Present: EOMI ENT: Present: mucous membranes moist - Routine Neck Exam Comments: bag over mucous fistulae - Routine Respiratory Exam Present: accessory muscle use - Routine Cardiovascular Exam Present: S1, S2 - Routine Abdominal Exam Present: soft Comments: gastrostomy tube in luq-leaking - Routine Extremities Exam Present: normal capillary refill - Routine Skin Exam Present: intact - Routine Psychiatric Exam Present: normal affect Results - Labs CBC & Chem 7: 07/27/18 10:50 07/26/18 07:35 Laboratory Results - last 24 hr 07/27/18 10:50 WBC 0.9 L RBC 2.37 L Hgb 8.0 L Hct 23.4 L MCV 98.9 MCH 33.6 MCHC 33.9 RDW 17.2 Plt Count 119 L MPV 8.0 Prelim Diff (Auto) Slide review pending Neut % (Auto) 45.6 Lymph % (Auto) 30.4 [place] % (Auto) 14.1 H Eos % (Auto) 8.4 H Baso % (Auto) 1.5 Neut # (Auto) 0.4 L* Lymph # (Auto) 0.3 L [place] # (Auto) 0.1 Eos # (Auto) 0.1 Baso # (Auto) 0.0 WBC Differential Manual diff final Seg Neuts % (Manual) 29 Band Neuts % (Manual) 15 H Lymphocytes % (Manual) 34 Monocytes % (Manual) 14 H Eosinophils % (Manual) 6 H Basophils % (Manual) 1 Plasma Cell % (Manual) 1 H Abs Neuts (Manual) 0.4 L* Differential Comment . Platelet Estimate Low L Platelet Morphology Normal - Procedures 07/08 lumbar puncture 07/11 Vas-cath placement Assessment and Plan (1) Encounter for PEG (percutaneous endoscopic gastrostomy) Status: Acute Code(s): Z43.1 - Encounter for attention to gastrostomy - Attending Attestation malfunctioning peg tube , leaking severe neutropenia s/p total esophagectomy with spit fistulae peg placed by thoracic surgery, than replaced by ir Recommendations consult IR for gastrostomy tube replacement resume prior diet
--- NOTE | 2018-07-27 16:49 | P.PNIM ---
Subjective Interval history: Patient apparently accidentally cut his PEG tube yesterday when he is trying to cut the tape off of it. Nursing the lab mentioning that the patient is neutropenic critically today. Otherwise no clinical changes overnight. Patient is asking for me to switch his IV Dilaudid back from every 6 to every 4 hours. I informed him that we are trying to wean him down since we are getting closer towards discharge. I informed him that on his last day of hospitalization he is to be free of all IV controlled substances. He negotiates to get every 4 dosing starting now until tomorrow morning at which point we will start de-escalating. Physical Exam Vital signs: Vital Signs 07/26/18 20:00 07/27/18 00:00 07/27/18 04:00 Temperature 99.1 F 98.9 F 98.6 F Pulse Rate 97 H 68 70 Respiratory Rate 16 16 16 Blood Pressure 158/76 H 129/71 131/63 Pulse Oximetry 95 96 96 07/27/18 08:00 Temperature 98.6 F Pulse Rate 102 H Respiratory Rate 17 Blood Pressure 137/95 H Pulse Oximetry 100 Intake & Output 07/26/18 07/27/18 07/27/18 18:59 06:59 18:59 Intake Total 1613 / 1613 1515 / 1515 Output Total 700 / 700 4700 / 4700 Balance 1613 / 1613 815 / 815 -4700 / -4700 Weight 77.3 kg Intake: IV 418 / 418 1515 / 1515 D5W/1/2 NS Inj 1,000 ML @ 75 418 / 418 1000 / 1000 mls/hr IV.CONT .[id number] [facility] Rx# :[id number] Vancomycin Inj 1,500 MG In NS 515 / 515 Inj 500 ML @ 250 mls/hr IV.SIG Q12H [facility] Rx#:[id number] Oral 960 / 960 Intake (Blood Product) Amt 235 / 235 Pre-Pooled Cryo Thawed 10units 235 / 235 Unit [id number] Output: Urine 700 / 700 700 / 700 Plasma Exchange Amount 4000 / 4000 Other: # Voids 4 1 Date of Last Bowel Movement 07/25/18 07/25/18 # Bowel Movements 1 Narrative: Sitting up in the bed, no acute distress Clear lungs bilaterally, unlabored breathing esophagectomy Ostomy bag in place Hrt sounds RRR moves all 4 extremities spontaneously PEG tube cut, clamped at this time Results - Labs CBC & Chem 7: 07/28/18 04:40 07/28/18 04:40 Laboratory Results - last 24 hr 07/27/18 10:50 WBC 0.9 L RBC 2.37 L Hgb 8.0 L Hct 23.4 L MCV 98.9 MCH 33.6 MCHC 33.9 RDW 17.2 Plt Count 119 L MPV 8.0 Prelim Diff (Auto) Slide review pending Neut % (Auto) 45.6 Lymph % (Auto) 30.4 [place] % (Auto) 14.1 H Eos % (Auto) 8.4 H Baso % (Auto) 1.5 Neut # (Auto) 0.4 L* Lymph # (Auto) 0.3 L [place] # (Auto) 0.1 Eos # (Auto) 0.1 Baso # (Auto) 0.0 WBC Differential Manual diff final Seg Neuts % (Manual) 29 Band Neuts % (Manual) 15 H Lymphocytes % (Manual) 34 Monocytes % (Manual) 14 H Eosinophils % (Manual) 6 H Basophils % (Manual) 1 Plasma Cell % (Manual) 1 H Abs Neuts (Manual) 0.4 L* Differential Comment . 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 Developed bacteremia with neutropenic fever, had his Vas-Cath removed. ID comanaged abx, bacteremia and fever cleared based on repeat cultures, had a new Vas-Cath placed on 07/25/18, resumed fourth plasmapheresis treatment on 07/25/18. Guillan Julio syndrome Previously on plasmapheresis which had to be stopped due to MRSA and enterococcus bacteremia Was restarted on plasmapheresis on 07/25/18 at 4 of 5 treatments, 5th tx due on 07/27 Total of 7 tx's planned now per neurology's request Cut peg tube -Originally was placed by thoracic surgeon, patient accidentally cut the tube on 07/26 -IR consulted for tube placement by GI Chronic pain hx of drug use, high tolerance Increase his IV dilaudid to q 4hrs until AM, maintain po Dilaudid every 4 hours Narcan is ordered in case patient becomes sedated, he insisted he will not Neutropenia Hematology following, prior bone marrow bx from [facility] nondiagnostic -neupogen per hematology on 07/28/17 Discussed with hematology, ? 2/2 AEDs vs undiagnosed underlying systemic dx such as HIV maybe -obtain HIV screening tests Thrombocytopenia stabilized, hematology following 2/2 splenomegaly and/or Hep C, BM bx results in chart Bacteremia MRSA and enterococcus Continue vancomycin, cefepime, micafungin per ID repeat blood cultures negative Adrenal insufficiency Has had trouble with hypoglycemia, stable at this time. Continue oral hydrocortisone 20 mg 3 times daily. Patient outpatient welfare service aide Dr. Ornelas . Continue testosterone injections as an outpt. History seizure disorder Continue Keppra and gabapentin 600 TID. 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 Rudi Medina [phone]/ Soniya BREAUX [phone]). Previous J-tube placement. Hepatitis profile: + Hep C Ig ab US abdomen: Hepatosplenomegaly On Protonix 40 mg p.o. for GI prophylaxis Continue tube feeds via J-tube change to [place] with goal rate 70ml/hr Patient cut his J-tube apparently accidentally, GI being consulted DVT prophylaxis SCDs
[2018-07-27] MEDS: traZODone 50 MG Tablet PO SCH (20:09)
[2018-07-28] MEDS: HYDROmorphone PF Inj 0.5 MG/0.5 ML Syringe IV.PUSH PRN ×5 (00:16→21:44)
[2018-07-28] MEDS: LORazepam 1 MG Tablet PO PRN ×4 (00:16→21:46)
[2018-07-28] MEDS: Levothyroxine 75 MCG Tablet PO SCH (05:43)
[2018-07-28 05:45] LABS: Baso % (Auto) 0.4 % (0.0-2.0); Eos # (Auto) 0.1 th/mm3 (0.0-0.4); Hematocrit 27.1 % (39.0-51.0); Hemoglobin 9.3 gm/dL (13.0-17.0); Lymph # (Auto) 0.8 th/mm3 (1.0-4.8); Lymph % (Auto) 9.1 % (9.0-44.0); Mean Corpuscular HGB Conc 34.2 % (32.0-36.0); Mean Corpuscular Hemoglobin 33.3 pg (27.0-34.0); Mean Corpuscular Volume 97.2 fL (80.0-100.0); Mean Platelet Volume 8.2 fL (7.0-11.0); Mono # (Auto) 0.4 th/mm3 (0.0-0.9); Mono % (Auto) 4.4 % (0.0-8.0); Neut # (Auto) 7.3 th/mm3 (1.8-7.7); Neut % (Auto) 85.1 % (16.0-70.0); Platelet Count 118 th/mm3 (150-450); Red Blood Count 2.79 mil/mm3 (4.50-5.90); Red Cell Distribution Width 17.3 % (11.6-17.2); White Blood Count 8.5 th/mm3 (4.0-11.0)
[2018-07-28 06:07] LABS: Glomerular Filtration Rate Greater Than 89 mL/min (>89)
[2018-07-28] MEDS: Gabapentin 300 MG Capsule PO SCH ×4 (08:38→21:46)
[2018-07-28] MEDS: Hydrocortisone 10 MG Tablet PO SCH ×3 (08:38→17:21)
[2018-07-28] MEDS: levETIRAcetam 250 MG Tablet PO SCH ×2 (08:38→21:47)
[2018-07-28] MEDS: Beneprotein Powder Packet G-TUBE SCH ×2 (08:42→22:00)
--- NOTE | 2018-07-28 10:40 | P.PNONC ---
Subjective Interval history: Febrile, T-max 101.4 today. Patient reports pain all over. He lost his PICC line access last night. His feeding tube was accidentally cut several days ago, awaiting replacement. s/p plasmapheresis #5 yesterday. Objective Vital Signs/Intake & Output: Vital Signs 07/27/18 12:00 07/27/18 16:00 07/27/18 20:00 Temperature 98.0 F 98.9 F Pulse Rate 72 95 H 96 H Respiratory Rate 18 17 Blood Pressure 161/104 H 129/71 Pulse Oximetry 99 95 07/28/18 00:00 07/28/18 03:55 07/28/18 04:00 Temperature 97.4 F L 97.7 F Pulse Rate 65 92 H 99 H Respiratory Rate 18 18 Blood Pressure 148/91 H 121/73 Pulse Oximetry 99 94 L 07/28/18 08:00 Temperature 101.4 F H Pulse Rate 111 H Respiratory Rate 18 Blood Pressure 149/84 H Pulse Oximetry 100 Intake & Output 07/27/18 07/28/18 07/28/18 18:59 06:59 18:59 Intake Total 1835 / 1835 1515 / 1515 Output Total 4700 / 4700 Balance -2865 / -2865 1515 / 1515 Weight 70 kg Intake: IV 1315 / 1315 715 / 715 D5W/1/2 NS Inj 1,000 ML @ 75 800 / 800 200 / 200 mls/hr IV.CONT .[id number] [facility] Rx# :[id number] Vancomycin Inj 1,500 MG In NS 515 / 515 515 / 515 Inj 500 ML @ 250 mls/hr IV.SIG Q12H [facility] Rx#:[id number] Oral 520 / 520 800 / 800 Output: Urine 700 / 700 Plasma Exchange Amount 4000 / 4000 Other: # Voids 3 4 Date of Last Bowel Movement 07/25/18 Result Diagrams: 07/28/18 04:40 07/28/18 04:40 Laboratory Results: Laboratory Results - last 24 hr 07/27/18 07/27/18 07/27/18 10:50 20:44 20:44 WBC 0.9 L RBC 2.37 L Hgb 8.0 L Hct 23.4 L MCV 98.9 MCH 33.6 MCHC 33.9 RDW 17.2 Plt Count 119 L MPV 8.0 Prelim Diff (Auto) Slide review pending Neut % (Auto) 45.6 Lymph % (Auto) 30.4 [place] % (Auto) 14.1 H Eos % (Auto) 8.4 H Baso % (Auto) 1.5 Neut # (Auto) 0.4 L* Lymph # (Auto) 0.3 L [place] # (Auto) 0.1 Eos # (Auto) 0.1 Baso # (Auto) 0.0 WBC Differential Manual diff final Seg Neuts % (Manual) 29 Band Neuts % (Manual) 15 H Lymphocytes % (Manual) 34 Monocytes % (Manual) 14 H Eosinophils % (Manual) 6 H Basophils % (Manual) 1 Plasma Cell % (Manual) 1 H Abs Neuts (Manual) 0.4 L* Differential Comment . Platelet Estimate Low L Platelet Morphology Normal Creatinine Estimated GFR POC Glucose TSH Rheumatoid Factor Scrn Negative Rheumatoid Factor Titer Not Reportable HIV 1&2 Ab/P24 Ag 4thGn Nonreactive 07/28/18 07/28/18 07/28/18 00:10 04:40 04:40 WBC 8.5 D RBC 2.79 L Hgb 9.3 L Hct 27.1 L MCV 97.2 MCH 33.3 MCHC 34.2 RDW 17.3 H Plt Count 118 L MPV 8.2 Prelim Diff (Auto) Neut % (Auto) 85.1 H Lymph % (Auto) 9.1 [place] % (Auto) 4.4 Eos % (Auto) 1.0 Baso % (Auto) 0.4 Neut # (Auto) 7.3 Lymph # (Auto) 0.8 L [place] # (Auto) 0.4 Eos # (Auto) 0.1 Baso # (Auto) 0.0 WBC Differential . Seg Neuts % (Manual) Band Neuts % (Manual) Lymphocytes % (Manual) Monocytes % (Manual) Eosinophils % (Manual) Basophils % (Manual) Plasma Cell % (Manual) Abs Neuts (Manual) Differential Comment Auto diff final Platelet Estimate Platelet Morphology Creatinine 0.47 L Estimated GFR Greater than 89 POC Glucose 91 TSH 1.130 Rheumatoid Factor Scrn Rheumatoid Factor Titer HIV 1&2 Ab/P24 Ag 4thGn 07/28/18 05:45 WBC RBC Hgb Hct MCV MCH MCHC RDW Plt Count MPV Prelim Diff (Auto) Neut % (Auto) Lymph % (Auto) [place] % (Auto) Eos % (Auto) Baso % (Auto) Neut # (Auto) Lymph # (Auto) [place] # (Auto) Eos # (Auto) Baso # (Auto) WBC Differential Seg Neuts % (Manual) Band Neuts % (Manual) Lymphocytes % (Manual) Monocytes % (Manual) Eosinophils % (Manual) Basophils % (Manual) Plasma Cell % (Manual) Abs Neuts (Manual) Differential Comment Platelet Estimate Platelet Morphology Creatinine Estimated GFR POC Glucose 76 TSH Rheumatoid Factor Scrn Rheumatoid Factor Titer HIV 1&2 Ab/P24 Ag 4thGn Culture Results: Microbiology 07/21/18 06:46 Aerobic Blood Culture - Final Blood - Peripheral No growth in 5 days Anaerobic Blood Culture - Final No growth in 5 days 07/21/18 07:00 Aerobic Blood Culture - Final Blood - Peripheral No growth in 5 days Anaerobic Blood Culture - Final No growth in 5 days Medications: Active Medications Generic Name Dose Route Start Last Admin Trade Name Freq PRN Reason Stop Dose Admin Acetaminophen 650 mg 07/18/18 22:53 07/28/18 08:39 Tylenol Liq PO 650 mg Q6H PRN Administration temp > 100.4 Al Hydroxide/Mg Hydroxide 30 ml 06/30/18 11:38 07/07/18 15:45 Milk Of Magnesia Liq PO 30 ml Q12H PRN Administration Mild Constipation Albuterol 1 ampul 06/30/18 11:38 07/13/18 04:13 Duoneb Neb (Prn) NEB 1 ampul Q2HR NEB PRN Administration WHEEZING Fentanyl 1 patch 07/03/18 13:15 07/27/18 13:39 Duragesic 25 Mcg Patch.72hr T-DERMAL 1 patch Q72H [facility] Administration Gabapentin 600 mg 07/18/18 18:00 07/28/18 08:38 Neurontin PO 600 mg QID [facility] Administration Hydrocortisone Acetate 20 mg 07/16/18 09:00 07/28/18 08:38 Cortef PO 20 mg TID [facility] Administration Hydromorphone HCl 8 mg 07/25/18 15:46 07/28/18 10:20 Dilaudid PO 8 mg Q4H PRN Administration Acute Pain 1 to 10 Hydromorphone HCl 1 mg 07/27/18 16:44 07/28/18 08:34 Dilaudid Pf Inj IV.PUSH 1 mg Q4H PRN Administration BREAKTHROUGH PAIN Dextrose/Sodium Chloride 1,000 mls @ 75 mls/hr 07/05/18 16:28 07/27/18 22:20 D5w/1/2 Ns Inj IV.CONT Not Given .[id number] [facility] Vancomycin HCl 1,500 mg/ 515 mls @ 250 mls/hr 07/21/18 12:00 07/28/18 01:36 Sodium Chloride IV.SIG Infused Q12H [facility] Infusion Lactulose 30 ml 06/30/18 11:38 07/19/18 09:15 Lactulose Liq PO 30 ml DAILY PRN Administration SEVERE CONSITIPATION Levetiracetam 750 mg 07/03/18 21:00 07/28/18 08:38 Keppra PO 750 mg BID [facility] Administration Levothyroxine Sodium 75 mcg 07/04/18 06:00 07/28/18 05:43 Synthroid PO 75 mcg DAILY@0600 [facility] Administration Lorazepam 1 mg 07/28/18 00:01 07/28/18 06:51 Ativan PO 1 mg Q6H PRN Administration ANXIETY Pantoprazole Sodium 40 mg 07/07/18 09:00 07/28/18 08:38 Protonix PO 40 mg DAILY [facility] Administration Patch Removal 1 each 07/03/18 13:00 07/27/18 13:42 Remove Old Patch T-DERMAL 1 each Q72H [facility] Administration Patch Removal 1 each 07/03/18 13:00 07/27/18 13:42 Remove Old Patch T-DERMAL 1 each Q72H [facility] Administration Quetiapine Fumarate 400 mg 07/03/18 21:00 07/03/18 21:19 Seroquel PO Not Given BID [facility] Sodium Chloride 2 ml 06/30/18 09:58 07/20/18 21:07 Ns Flush IV.FLUSH 2 ml PRN PRN Administration FLUSH AFTER USING IV ACCESS Tizanidine HCl 4 mg 07/23/18 01:00 07/28/18 05:43 Zanaflex PO 4 mg Q6H PRN Administration MUSCLE SPASM Trazodone HCl 50 mg 07/27/18 21:00 07/27/18 20:09 Desyrel PO 50 mg HS [facility] Administration Whey 1 packet 07/10/18 21:00 07/28/18 08:42 Beneprotein Powder G-TUBE Not Given BID [facility] Objective Remarks: GENERAL: Chronically ill-appearing young male patient, in no acute distress. SKIN: Warm and dry. HEAD: Normocephalic. EYES: No scleral icterus. No injection or drainage. NECK: Supple, trachea midline. Vas-Cath to right neck, no swelling erythema or oozing. Collection bag to left neck. CARDIOVASCULAR: + Tachycardic. RESPIRATORY: Posterior breath sounds distant clear, equal bilaterally. Nonlabored. GASTROINTESTINAL: Abdomen non-tender, nondistended. J-tube wrapped up in wash cloth. EXTREMITIES: No cyanosis, or edema. MUSCULOSKELETAL: Decreased muscle tone. RLE weaker than LLE. NEUROLOGICAL: No obvious focal deficit. Awake, alert, and oriented x3. PSYCHIATRIC: Appropriate mood and affect; insight and judgment normal. 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 Oncology consulted for further recommendations. 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 Plasma aphoresis EOD x's 5 treatments. Patient completed 5 treatments of plasmapheresis yesterday. There was a delay in treatment #4 and 5 due to bacteremia. His Vas- Cath was removed and then replaced several days later for continuation of plasma exchange. 2. Neutropenia, now with fever, patient became neutropenic again yesterday. ANC was 400. He was given 1 dose of Neupogen. ANC increased to 7300 today, appears he has adequate myeloid reserve, etiology is still unknown why he has cyclic neutropenia. Previous BM biopsy is in the chart and was reviewed. We will stop Neupogen and continue to monitor. Patient spiked a temperature of 101.4 F this morning at 0 8:00. Discussed with attending, awaiting ID recommendations. 3. Awaiting coags today. 4. Patient no longer with PICC line access. Management per attending. 5. Rheumatoid factor negative, ALAN pending. TSH 1.13 6. Neurology requested an additional 2 plasmapheresis treatments. This would typically be due tomorrow and Sunday. We will hold off on ordering since patient is now with fever. Await ID recommendations. - Attending Statement The exam, history, and the medical decision-making described in the above note were completed with the assistance of the mid-level provider. I reviewed and agree with the findings presented. I attest that I had a [id number] encounter with the patient on the same day, and personally performed and documented my assessment and findings in the medical record. Had an elevated temperature this morning. Blood cultures drawn and are pending. Neutrophil count now normal after 1 injection of Neupogen. Will discontinue Neupogen and follow. The etiology of the neutropenia remains obscure. He accidentally cut his G-tube when trying to remove gauze surrounding the tube. In addition the line in the left arm fell out. This is a difficult case with multiple moving parts. Will not commit to pheresis tomorrow unless there is no further temperature and he is stable. He has already received 5 plasma exchanges. They have been beneficial. There is no change in his exam today when compared to yesterday.
[2018-07-28 10:49] LABS: Activated Partial Thrombo Time 42.2 sec (23.4-31.7); INR 1.3 Ratio; Prothrombin Time 13.5 sec (9.8-11.6)
--- NOTE | 2018-07-28 11:29 | P.PNID ---
Subjective Remarks: ID Coverage Notes reviewed Diagnosed with GB, has been getting pheresis Also Dx with MRSA bacteremia, likely line related Vacath removed, replaced 1.3 Recurrent neutropenia - got neupogen yesterday, WBC now normal Had fever to 101.8 this morning No cough Voiding ok No diarrhea BC being drawn currently No rash or itching Antibiotics: vanco Past Medical History: Adrenal insufficiency Anxiety Bradycardia Compression fracture Difficult intubation Esophageal rupture Fistula History of MRSA infection Onset Date: ~06/30/18 Hypoglycemia Liver disease PTSD (post-traumatic stress disorder) Pacemaker Seizure TIA (transient ischemic attack) Allergies/Adverse Reactions: Allergies codeine Allergy (Severe, Verified 07/20/18 21:01) Hives tramadol Allergy (Severe, Verified 07/20/18 21:01) seizure cyclobenzaprine Allergy (Unknown, Verified 06/30/18 10:28) Unresponsive fluvoxamine Allergy (Unknown, Verified 06/30/18 10:28) Unresponsive zolpidem Allergy (Unknown, Verified 06/30/18 10:28) Unconscious Beta-Blockers (Beta-Adrenergic Bloc Allergy (Verified 06/30/18 10:28) Anaphylaxis MRI PRECAUTION Adverse Reaction (Severe, Uncoded 08/04/17 18:49) NON REVO PACEMAKER Objective Vital Signs 07/27/18 12:00 07/27/18 16:00 07/27/18 20:00 Temperature 98.0 F 98.9 F Pulse Rate 72 95 H 96 H Respiratory Rate 18 17 Blood Pressure 161/104 H 129/71 Pulse Oximetry 99 95 07/28/18 00:00 07/28/18 03:55 07/28/18 04:00 Temperature 97.4 F L 97.7 F Pulse Rate 65 92 H 99 H Respiratory Rate 18 18 Blood Pressure 148/91 H 121/73 Pulse Oximetry 99 94 L 07/28/18 08:00 Temperature 101.4 F H Pulse Rate 111 H Respiratory Rate 18 Blood Pressure 149/84 H Pulse Oximetry 100 Intake & Output 07/27/18 07/28/18 07/28/18 18:59 06:59 18:59 Intake Total 1835 / 1835 1515 / 1515 Output Total 4700 / 4700 Balance -2865 / -2865 1515 / 1515 Weight 70 kg Intake: IV 1315 / 1315 715 / 715 D5W/1/2 NS Inj 1,000 ML @ 75 800 / 800 200 / 200 mls/hr IV.CONT .[id number] [facility] Rx# :[id number] Vancomycin Inj 1,500 MG In NS 515 / 515 515 / 515 Inj 500 ML @ 250 mls/hr IV.SIG Q12H [facility] Rx#:[id number] Oral 520 / 520 800 / 800 Output: Urine 700 / 700 Plasma Exchange Amount 4000 / 4000 Other: # Voids 3 4 Date of Last Bowel Movement 07/25/18 07/21/18 06:46 Blood - Peripheral Aerobic Blood Culture - Final No growth in 5 days 07/21/18 06:46 Blood - Peripheral Anaerobic Blood Culture - Final No growth in 5 days 07/21/18 07:00 Blood - Peripheral Aerobic Blood Culture - Final No growth in 5 days 07/21/18 07:00 Blood - Peripheral Anaerobic Blood Culture - Final No growth in 5 days Lab - Hematology Results 07/27/18 07/28/18 10:50 04:40 WBC 0.9 L 8.5 D RBC 2.37 L 2.79 L Hgb 8.0 L 9.3 L Hct 23.4 L 27.1 L MCV 98.9 97.2 MCH 33.6 33.3 MCHC 33.9 34.2 RDW 17.2 17.3 H Plt Count 119 L 118 L MPV 8.0 8.2 Prelim Diff (Auto) Slide review pending Neut % (Auto) 45.6 85.1 H Lymph % (Auto) 30.4 9.1 [place] % (Auto) 14.1 H 4.4 Eos % (Auto) 8.4 H 1.0 Baso % (Auto) 1.5 0.4 Neut # (Auto) 0.4 L* 7.3 Lymph # (Auto) 0.3 L 0.8 L [place] # (Auto) 0.1 0.4 Eos # (Auto) 0.1 0.1 Baso # (Auto) 0.0 0.0 WBC Differential Manual diff final . Seg Neuts % (Manual) 29 Band Neuts % (Manual) 15 H Lymphocytes % (Manual) 34 Monocytes % (Manual) 14 H Eosinophils % (Manual) 6 H Basophils % (Manual) 1 Plasma Cell % (Manual) 1 H Abs Neuts (Manual) 0.4 L* Differential Comment . Auto diff final Platelet Estimate Low L Platelet Morphology Normal Lab - Chemistry Results 07/28/18 07/28/18 07/28/18 00:10 04:40 04:40 Creatinine 0.47 L Estimated GFR Greater than 89 POC Glucose 91 TSH 1.130 Free T4 1.38 07/28/18 05:45 Creatinine Estimated GFR POC Glucose 76 TSH Free T4 Imaging: ITS Impressions Abdomen Ultrasound 06/30/18 00:00 CONCLUSION: 1. The kidneys demonstrate increased echogenicity concerning for medical renal disease. 2. Hepatosplenomegaly. 3. Right pleural effusion. Cervical Spine CT 07/02/18 00:00 CONCLUSION: 1. No acute bony abnormalities within the cervical spine. No canal stenosis identified. 2. Soft tissue swelling of the left neck with small radiopaque foreign bodies in the subcutaneous tissues and locules of air, possibly related to fistulous tract. Thoracic Spine CT 07/02/18 00:00 CONCLUSION: 1. Mild kyphosis. 2. Mild loss of height of several lower thoracic vertebral bodies, stable. 3. No acute compression fracture. Head CT 07/02/18 14:12 CONCLUSION: 1. Stable negative noncontrast CT. . Head MRI 07/03/18 07:05 CONCLUSION: 1. Unremarkable MRI of the brain. Cervical Spine MRI 07/03/18 07:07 CONCLUSION: 1. Focal mild right lateral bulging at C5-6. 2. Otherwise, unremarkable exam for patient's age. Thoracic Spine MRI 07/03/18 07:07 CONCLUSION: 1. Mild broad-based bulging at T10-T11. 2. Mild disc space narrowing from T3 through T7. 3. Mild chronic loss of height of T9, T10 and T11. No abnormal bone marrow signal. Chest CT 07/04/18 00:00 CONCLUSION: 1. No evidence of Pancoast tumor as questioned. 2. Stable 4 mm nodule in the superior segment of the right lower lobe. Routine follow-up of sub-6 mm nodules is not recommended per 2017 Fleischner material. This nodule has been essentially stable for 18 months. 3. Small right and trace left simple appearing pleural effusions. Soft Tissue Neck CT 07/04/18 00:00 CONCLUSION: 1. I do not see evidence for esophageal rupture. Lumbar Puncture Fluoroscopy 07/08/18 00:00 CONCLUSION: Uncomplicated fluoroscopically guided lumbar puncture. Barium Swallow X-Ray 07/12/18 00:00 CONCLUSION: No evidence of penetration of the supraglottic larynx or tracheal aspiration with multiple swallows of thin barium. Chest X-Ray 07/18/18 00:00 CONCLUSION: 1. Mild patchy bilateral nonspecific airspace opacities as described. 2. Elevated left hemidiaphragm again noted. 3. Normal, stable heart size. Cardiac pacer again noted. 4. Right IJ line with distal tip in the right atrium. Tube Removal 07/22/18 18:36 CONCLUSION: 1. Uncomplicated Permcath removal. Catheter Placement 07/25/18 00:00 CONCLUSION: 1. Uncomplicated right IJ Vas-Cath placement as above. Physical Exam: GENERAL: NAD SKIN: Cool and dry. no rash HEAD: Atraumatic. Normocephalic. alopecia on L occipital gordon EYES: Pupils equal and round. No scleral icterus. No injection or drainage. ENT: No nasal bleeding or discharge. Mucous membranes pink and moist. NECK: Trachea midline. No JVD. Vascath site ok Pouch with drainage on the L anterior neck spit fistula CARDIOVASCULAR: Regular rate and rhythm. RESPIRATORY: Clear to auscultation. Breath sounds equal bilaterally. GASTROINTESTINAL: Abdomen soft, non-tender, nondistended. Hepatic and splenic margins not palpable. MUSCULOSKELETAL: Extremities without clubbing, cyanosis, or edema. No obvious deformities. NEUROLOGICAL: Awake and alert. Normal speech. PSYCHIATRIC: anxious Assessment and Plan - Plan Impression MRSA sepsis, S/P vascath removal Ent fecalis sepsis Neutropenia, recurrent, up after Neupogen Fevers, coinciding with his neutropenia GBS, on pheresis Esophageal rupture, has spit fistula L neck Plan Repeat BC Follow temps Follow new C/S Continue IV vancomycin Monitor progress D/W Dr Rey (HEPAS)
[2018-07-28] MEDS: Vancomycin Inj 1,500 MG in Sodium Chlor 0.9% Inj 500 ML IV.SIG SCH ×2 (12:20→23:51)
[2018-07-28] MEDS: Dextrose 5%/NaCl 0.45% Inj 1,000 ML IV.CONT SCH ×2 (12:20→23:55)
--- NOTE | 2018-07-28 13:57 | XR ---
EXAM DATE: 07/28/2018 1:45 PM EST AGE/SEX: 32 years / Male INDICATIONS: . fever CLINICAL DATA: This is the patient's initial encounter. Patient reports that signs and symptoms have been present for 4 - 6 days and indicates a pain score of 0/10. MEDICAL/SURGICAL HISTORY: . Boerhaave syndrome, adrenal insufficiency, Pituitary dysfunction, P TSD, seizures,. . Pacemaker. J tube, vas cath, spit fistula esophagectomy. COMPARISON: [facility], CHEST 1V SINGLE AP, 07/18/2018. . FINDINGS: The lungs are clear without infiltrate, nodule, or mass. There is no appreciable pleural effusion for technique. Heart and mediastinum are unremarkable. Left subclavian transvenous pacer wi res are present with tips in the right atrium and right ventricle. Right IJ line is present with tip overlapping the expected region of the SVC. The left hemidiaphragm is elevated. CONCLUSION: No acute cardiopulmonary disease. Electronically signed by: Shaina Denise MD Board Certified Radiologist 07/28/2018 1:56 PM EST
--- NOTE | 2018-07-28 15:50 | P.PNGI ---
Subjective Interval history: Pt is resting in bed. has cups of coffee next to his bed. States he is able to push some through the tube and quickly flush with water <Oralia Vela - Last Filed: 07/28/18 15:42> Physical Exam Vital signs: Vital Signs 07/27/18 16:00 07/27/18 20:00 07/28/18 00:00 Temperature 98.0 F 98.9 F 97.4 F L Pulse Rate 95 H 96 H 65 Respiratory Rate 18 17 18 Blood Pressure 161/104 H 129/71 148/91 H Pulse Oximetry 99 95 99 07/28/18 03:55 07/28/18 04:00 07/28/18 08:00 Temperature 97.7 F 101.4 F H Pulse Rate 92 H 99 H 111 H Respiratory Rate 18 18 Blood Pressure 121/73 149/84 H Pulse Oximetry 94 L 100 07/28/18 12:00 Temperature 98.8 F Pulse Rate 104 H Respiratory Rate 16 Blood Pressure 158/92 H Pulse Oximetry 100 Intake & Output 07/27/18 07/28/18 07/28/18 18:59 06:59 18:59 Intake Total 1835 / 1835 1515 / 1515 Output Total 4700 / 4700 Balance -2865 / -2865 1515 / 1515 Weight 70 kg Intake: IV 1315 / 1315 715 / 715 D5W/1/2 NS Inj 1,000 ML @ 75 800 / 800 200 / 200 mls/hr IV.CONT .[id number] [facility] Rx# :[id number] Vancomycin Inj 1,500 MG In NS 515 / 515 515 / 515 Inj 500 ML @ 250 mls/hr IV.SIG Q12H [facility] Rx#:[id number] Oral 520 / 520 800 / 800 Output: Urine 700 / 700 Plasma Exchange Amount 4000 / 4000 Other: # Voids 3 4 Date of Last Bowel Movement 07/25/18 Narrative: GENERAL: Patient in no distress. thin SKIN: Warm and dry. HEAD: Normocephalic. EYES: No scleral icterus. No injection or drainage. NECK: Ostomy over tracheal esophageal area CARDIOVASCULAR: Regular rate and rhythm without murmurs. RESPIRATORY: Breath sounds equal bilaterally. No accessory muscle use. GASTROINTESTINAL: Abdomen soft, non-tender, nondistended. Has G-tube. EXTREMITIES: No edema NEUROLOGICAL: Alert and oriented PSYCHIATRIC: Appropriate mood and affect; insight and judgment normal <Oralia Vela - Last Filed: 07/28/18 15:42> Vital signs: Vital Signs 07/27/18 20:00 07/28/18 00:00 07/28/18 03:55 Temperature 98.9 F 97.4 F L 97.7 F Pulse Rate 96 H 65 92 H Respiratory Rate 17 18 18 Blood Pressure 129/71 148/91 H 121/73 Pulse Oximetry 95 99 94 L 07/28/18 04:00 07/28/18 08:00 07/28/18 12:00 Temperature 101.4 F H 98.8 F Pulse Rate 99 H 111 H 104 H Respiratory Rate 18 16 Blood Pressure 149/84 H 158/92 H Pulse Oximetry 100 100 07/28/18 16:00 Temperature 98.2 F Pulse Rate 83 Respiratory Rate 14 Blood Pressure 132/75 Pulse Oximetry 97 Intake & Output 07/28/18 07/28/18 07/29/18 06:59 18:59 06:59 Intake Total 1515 / 1515 2074 / 5 Balance 1515 / 1515 2074 Weight 70 kg Intake: IV 715 / 715 1115 / 1115 D5W/1/2 NS Inj 1,000 ML @ 75 200 / 200 600 / 600 mls/hr IV.CONT .[id number] [facility] Rx# :[id number] Vancomycin Inj 1,500 MG In NS 515 / 515 515 / 515 Inj 500 ML @ 250 mls/hr IV.SIG Q12H [facility] Rx#:[id number] Oral 800 / 800 960 / 960 Other: # Voids 4 4 <Kathie Mulligan - Last Filed: 07/28/18 19:07> Results - Labs CBC & Chem 7: 07/28/18 04:40 07/28/18 04:40 Laboratory Results - last 24 hr 07/27/18 07/27/18 07/28/18 20:44 20:44 00:10 WBC RBC Hgb Hct MCV MCH MCHC RDW Plt Count MPV Neut % (Auto) Lymph % (Auto) [place] % (Auto) Eos % (Auto) Baso % (Auto) Neut # (Auto) Lymph # (Auto) [place] # (Auto) Eos # (Auto) Baso # (Auto) WBC Differential Differential Comment PT INR APTT Fibrinogen Creatinine Estimated GFR POC Glucose 91 TSH Free T4 Rheumatoid Factor Scrn Negative Rheumatoid Factor Titer Not Reportable HIV 1&2 Ab/P24 Ag 4thGn Nonreactive 07/28/18 07/28/18 07/28/18 04:40 04:40 04:40 WBC 8.5 D RBC 2.79 L Hgb 9.3 L Hct 27.1 L MCV 97.2 MCH 33.3 MCHC 34.2 RDW 17.3 H Plt Count 118 L MPV 8.2 Neut % (Auto) 85.1 H Lymph % (Auto) 9.1 [place] % (Auto) 4.4 Eos % (Auto) 1.0 Baso % (Auto) 0.4 Neut # (Auto) 7.3 Lymph # (Auto) 0.8 L [place] # (Auto) 0.4 Eos # (Auto) 0.1 Baso # (Auto) 0.0 WBC Differential . Differential Comment Auto diff final PT INR APTT Fibrinogen Creatinine 0.47 L Estimated GFR Greater than 89 POC Glucose TSH 1.130 Free T4 1.38 Rheumatoid Factor Scrn Rheumatoid Factor Titer HIV 1&2 Ab/P24 Ag 4thGn 07/28/18 07/28/18 07/28/18 05:45 09:52 09:52 WBC RBC Hgb Hct MCV MCH MCHC RDW Plt Count MPV Neut % (Auto) Lymph % (Auto) [place] % (Auto) Eos % (Auto) Baso % (Auto) Neut # (Auto) Lymph # (Auto) [place] # (Auto) Eos # (Auto) Baso # (Auto) WBC Differential Differential Comment PT 13.5 H INR 1.3 APTT 42.2 H Fibrinogen 112 L Creatinine Estimated GFR POC Glucose 76 TSH Free T4 Rheumatoid Factor Scrn Rheumatoid Factor Titer HIV 1&2 Ab/P24 Ag 4thGn 07/28/18 12:25 WBC RBC Hgb Hct MCV MCH MCHC RDW Plt Count MPV Neut % (Auto) Lymph % (Auto) [place] % (Auto) Eos % (Auto) Baso % (Auto) Neut # (Auto) Lymph # (Auto) [place] # (Auto) Eos # (Auto) Baso # (Auto) WBC Differential Differential Comment PT INR APTT Fibrinogen Creatinine Estimated GFR POC Glucose 122 H TSH Free T4 Rheumatoid Factor Scrn Rheumatoid Factor Titer HIV 1&2 Ab/P24 Ag 4thGn - Imaging Impressions Chest X-Ray 07/28/18 00:00 CONCLUSION: No acute cardiopulmonary disease. - Procedures 07/08 lumbar puncture 07/11 Vas-cath placement <Oralia Vela - Last Filed: 07/28/18 15:42> - Labs CBC & Chem 7: 07/28/18 04:40 07/28/18 04:40 Laboratory Results - last 24 hr 07/27/18 07/27/18 07/28/18 20:44 20:44 00:10 WBC RBC Hgb Hct MCV MCH MCHC RDW Plt Count MPV Neut % (Auto) Lymph % (Auto) [place] % (Auto) Eos % (Auto) Baso % (Auto) Neut # (Auto) Lymph # (Auto) [place] # (Auto) Eos # (Auto) Baso # (Auto) WBC Differential Differential Comment PT INR APTT Fibrinogen Creatinine Estimated GFR POC Glucose 91 TSH Free T4 Rheumatoid Factor Scrn Negative Rheumatoid Factor Titer Not Reportable HIV 1&2 Ab/P24 Ag 4thGn Nonreactive 07/28/18 07/28/18 07/28/18 04:40 04:40 04:40 WBC 8.5 D RBC 2.79 L Hgb 9.3 L Hct 27.1 L MCV 97.2 MCH 33.3 MCHC 34.2 RDW 17.3 H Plt Count 118 L MPV 8.2 Neut % (Auto) 85.1 H Lymph % (Auto) 9.1 [place] % (Auto) 4.4 Eos % (Auto) 1.0 Baso % (Auto) 0.4 Neut # (Auto) 7.3 Lymph # (Auto) 0.8 L [place] # (Auto) 0.4 Eos # (Auto) 0.1 Baso # (Auto) 0.0 WBC Differential . Differential Comment Auto diff final PT INR APTT Fibrinogen Creatinine 0.47 L Estimated GFR Greater than 89 POC Glucose TSH 1.130 Free T4 1.38 Rheumatoid Factor Scrn Rheumatoid Factor Titer HIV 1&2 Ab/P24 Ag 4thGn 07/28/18 07/28/18 07/28/18 05:45 09:52 09:52 WBC RBC Hgb Hct MCV MCH MCHC RDW Plt Count MPV Neut % (Auto) Lymph % (Auto) [place] % (Auto) Eos % (Auto) Baso % (Auto) Neut # (Auto) Lymph # (Auto) [place] # (Auto) Eos # (Auto) Baso # (Auto) WBC Differential Differential Comment PT 13.5 H INR 1.3 APTT 42.2 H Fibrinogen 112 L Creatinine Estimated GFR POC Glucose 76 TSH Free T4 Rheumatoid Factor Scrn Rheumatoid Factor Titer HIV 1&2 Ab/P24 Ag 4thGn 07/28/18 07/28/18 12:25 18:08 WBC RBC Hgb Hct MCV MCH MCHC RDW Plt Count MPV Neut % (Auto) Lymph % (Auto) [place] % (Auto) Eos % (Auto) Baso % (Auto) Neut # (Auto) Lymph # (Auto) [place] # (Auto) Eos # (Auto) Baso # (Auto) WBC Differential Differential Comment PT INR APTT Fibrinogen Creatinine Estimated GFR POC Glucose 122 H 132 H TSH Free T4 Rheumatoid Factor Scrn Rheumatoid Factor Titer HIV 1&2 Ab/P24 Ag 4thGn - Imaging Impressions Chest X-Ray 07/28/18 00:00 CONCLUSION: No acute cardiopulmonary disease. <Kathie Mulligan - Last Filed: 07/28/18 19:07> Assessment and Plan (1) Encounter for PEG (percutaneous endoscopic gastrostomy) Status: Acute Code(s): Z43.1 - Encounter for attention to gastrostomy - Plan Patient is a 32-year-old male with past medical history of chronic pain, thrombocytopenia, hepatitis C, neutropenic bacteremia, adrenal insufficiency, seizure disorder, bradycardia with pacemaker and Borehaave syndrome. 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 Bacteremia with neutropenic fever developed, Vas-Cath removed. ID following, new Vas-Cath placed on 07/25/2018. Upon consultation, patient noted to have ostomy collection bag as he is post esophagectomy. Our service has been consulted to evaluate patient for replacement PEG tube as patient states he accidentally cut same with scissor while removing tape. Gastrostomy tubing noted to have small slit on side where there is noted scant leakage of gastric contents PEG tube replacement Gastrostomy tube accidentally cut with scissor by patient while he was removing tape. Small slit noted on side with there is now scant leakage of gastric contents. peg placed by thoracic surgery, than replaced by ir Plan -consult IR for gastrostomy tube replacement -Continue IV hydration -Supportive care -Further recommendations to follow This patient has been seen by myself and Dr. Mulligan and this note is written on her behalf <Oralia Vela - Last Filed: 07/28/18 15:42> (1) Encounter for PEG (percutaneous endoscopic gastrostomy) Status: Acute Code(s): Z43.1 - Encounter for attention to gastrostomy - Attending Attestation agree with above gi will sig off call us as needed <Kathie Mulligan - Last Filed: 07/28/18 19:07>
[2018-07-28] MEDS: Hydrocortisone Sod Succinate 100 MG Vial IV.PUSH SCH ×2 (17:21→21:45)
--- NOTE | 2018-07-28 18:24 | P.PNIM ---
Subjective Interval history: RN reports that sometime last night pt lost his IV site in left arm, pt reports it was an accident. Has not received vanco since last night, spiked fever this AM. Pt expressing concern about lack of nutrtion since he reportedly accidently cut his peg tube 2 days ago. IR scheduled to place one in AM. Mother present today, inquiring about possible tertiary care transfer. Physical Exam Vital signs: Vital Signs 07/27/18 20:00 07/28/18 00:00 07/28/18 03:55 Temperature 98.9 F 97.4 F L 97.7 F Pulse Rate 96 H 65 92 H Respiratory Rate 17 18 18 Blood Pressure 129/71 148/91 H 121/73 Pulse Oximetry 95 99 94 L 07/28/18 04:00 07/28/18 08:00 07/28/18 12:00 Temperature 101.4 F H 98.8 F Pulse Rate 99 H 111 H 104 H Respiratory Rate 18 16 Blood Pressure 149/84 H 158/92 H Pulse Oximetry 100 100 07/28/18 16:00 Temperature 98.2 F Pulse Rate 83 Respiratory Rate 14 Blood Pressure 132/75 Pulse Oximetry 97 Intake & Output 07/27/18 07/28/18 07/28/18 18:59 06:59 18:59 Intake Total 1835 / 1835 1515 / 1515 960 / 960 Output Total 4700 / 4700 Balance -2865 / -2865 1515 / 1515 960 / 960 Weight 70 kg Intake: IV 1315 / 1315 715 / 715 D5W/1/2 NS Inj 1,000 ML @ 75 800 / 800 200 / 200 mls/hr IV.CONT .[id number] [facility] Rx# :[id number] Vancomycin Inj 1,500 MG In NS 515 / 515 515 / 515 Inj 500 ML @ 250 mls/hr IV.SIG Q12H [facility] Rx#:[id number] Oral 520 / 520 800 / 800 960 / 960 Output: Urine 700 / 700 Plasma Exchange Amount 4000 / 4000 Other: # Voids 3 4 4 Date of Last Bowel Movement 07/25/18 Narrative: Sitting up in the bed, no acute distress Clear lungs bilaterally, unlabored breathing esophagectomy Ostomy bag in place Hrt sounds RRR moves all 4 extremities spontaneously PEG tube cut, insertion site appears unremarkable Results - Labs CBC & Chem 7: 07/29/18 06:03 07/28/18 04:40 Laboratory Results - last 24 hr 07/27/18 07/27/18 07/28/18 20:44 20:44 00:10 WBC RBC Hgb Hct MCV MCH MCHC RDW Plt Count MPV Neut % (Auto) Lymph % (Auto) [place] % (Auto) Eos % (Auto) Baso % (Auto) Neut # (Auto) Lymph # (Auto) [place] # (Auto) Eos # (Auto) Baso # (Auto) WBC Differential Differential Comment PT INR APTT Fibrinogen Creatinine Estimated GFR POC Glucose 91 TSH Free T4 Rheumatoid Factor Scrn Negative Rheumatoid Factor Titer Not Reportable HIV 1&2 Ab/P24 Ag 4thGn Nonreactive 07/28/18 07/28/18 07/28/18 04:40 04:40 04:40 WBC 8.5 D RBC 2.79 L Hgb 9.3 L Hct 27.1 L MCV 97.2 MCH 33.3 MCHC 34.2 RDW 17.3 H Plt Count 118 L MPV 8.2 Neut % (Auto) 85.1 H Lymph % (Auto) 9.1 [place] % (Auto) 4.4 Eos % (Auto) 1.0 Baso % (Auto) 0.4 Neut # (Auto) 7.3 Lymph # (Auto) 0.8 L [place] # (Auto) 0.4 Eos # (Auto) 0.1 Baso # (Auto) 0.0 WBC Differential . Differential Comment Auto diff final PT INR APTT Fibrinogen Creatinine 0.47 L Estimated GFR Greater than 89 POC Glucose TSH 1.130 Free T4 1.38 Rheumatoid Factor Scrn Rheumatoid Factor Titer HIV 1&2 Ab/P24 Ag 4thGn 07/28/18 07/28/18 07/28/18 05:45 09:52 09:52 WBC RBC Hgb Hct MCV MCH MCHC RDW Plt Count MPV Neut % (Auto) Lymph % (Auto) [place] % (Auto) Eos % (Auto) Baso % (Auto) Neut # (Auto) Lymph # (Auto) [place] # (Auto) Eos # (Auto) Baso # (Auto) WBC Differential Differential Comment PT 13.5 H INR 1.3 APTT 42.2 H Fibrinogen 112 L Creatinine Estimated GFR POC Glucose 76 TSH Free T4 Rheumatoid Factor Scrn Rheumatoid Factor Titer HIV 1&2 Ab/P24 Ag 4thGn 07/28/18 07/28/18 12:25 18:08 WBC RBC Hgb Hct MCV MCH MCHC RDW Plt Count MPV Neut % (Auto) Lymph % (Auto) [place] % (Auto) Eos % (Auto) Baso % (Auto) Neut # (Auto) Lymph # (Auto) [place] # (Auto) Eos # (Auto) Baso # (Auto) WBC Differential Differential Comment PT INR APTT Fibrinogen Creatinine Estimated GFR POC Glucose 122 H 132 H TSH Free T4 Rheumatoid Factor Scrn Rheumatoid Factor Titer HIV 1&2 Ab/P24 Ag 4thGn - Imaging Impressions Chest X-Ray 07/28/18 00:00 CONCLUSION: No acute cardiopulmonary disease. 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 Developed bacteremia with neutropenic fever, had his Vas-Cath removed. ID comanaged abx, bacteremia and fever cleared based on repeat cultures, had a new Vas-Cath placed on 07/25/18, resumed fourth plasmapheresis treatment on 07/25/18. Guillan Julio syndrome Previously on plasmapheresis which had to be stopped due to MRSA and enterococcus bacteremia Was restarted on plasmapheresis on 07/25/18 Total number of treatments was extended to 7, has now underwent 6/ Cut peg tube -Originally was placed by thoracic surgeon, patient accidentally cut the tube on 07/26 -IR consulted by GI for tube placement for today Neutropenia -No recurrence of fever, likely secondary to hiatus and vancomycin dosing secondary to loss of IV access. Repeat blood cultures since 07/28 so far negative Hematology following, prior bone marrow bx from [facility] nondiagnostic -neupogen per hematology on 07/28/17 Discussed with hematology, ? 2/2 AEDs vs undiagnosed underlying systemic dx such as HIV maybe - HIV screening tests ordered Bacteremia MRSA and enterococcus Continue vancomycin and micafungin per ID repeat blood cultures negative from 07/21 Chronic pain hx of drug use, high tolerance IV dilaudid to q 4hrs, maintain po Dilaudid every 4 hours Narcan is ordered in case patient becomes sedated, he insisted he will not Thrombocytopenia stabilized, hematology following 2/ splenomegaly and/or Hep C, BM bx results in chart Adrenal insufficiency Has had trouble with hypoglycemia, stable at this time. Continue oral hydrocortisone 20 mg 3 times daily. 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 Continue testosterone injections as an outpt. History seizure disorder Continue Keppra and gabapentin 600 TID. 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 Rudi Medina [phone]/ Soniya BREAUX [phone]). Previous J-tube placement. Hepatitis profile: + Hep C Ig ab US abdomen: Hepatosplenomegaly On Protonix 40 mg p.o. for GI prophylaxis Continue tube feeds via J-tube change to [place] with goal rate 70ml/hr Patient cut his J-tube apparently accidentally, DVT prophylaxis SCDs
[2018-07-28] MEDS: traZODone 50 MG Tablet PO SCH (21:47)
[2018-07-29] MEDS: HYDROmorphone PF Inj 0.5 MG/0.5 ML Syringe IV.PUSH PRN ×2 (02:14→06:24)
[2018-07-29] MEDS: LORazepam 1 MG Tablet PO PRN ×3 (04:01→21:21)
[2018-07-29] MEDS: Levothyroxine 75 MCG Tablet PO SCH (06:24)
[2018-07-29] MEDS: Hydrocortisone Sod Succinate 100 MG Vial IV.PUSH SCH ×2 (06:25→14:10)
[2018-07-29] MEDS: levETIRAcetam 250 MG Tablet PO SCH ×2 (08:33→21:23)
[2018-07-29] MEDS: Hydrocortisone 10 MG Tablet PO SCH ×3 (08:34→17:14)
[2018-07-29] MEDS: Gabapentin 300 MG Capsule PO SCH ×4 (08:35→21:21)
[2018-07-29 08:38] LABS: Baso % (Auto) 0.2 % (0.0-2.0); Eos % (Auto) 0.5 % (0.0-4.0); Hemoglobin 9.9 gm/dL (13.0-17.0); Lymph # (Auto) 0.8 th/mm3 (1.0-4.8); Lymph % (Auto) 11.7 % (9.0-44.0); Mean Corpuscular HGB Conc 34.2 % (32.0-36.0); Mean Corpuscular Hemoglobin 33.2 pg (27.0-34.0); Mean Corpuscular Volume 97.2 fL (80.0-100.0); Mean Platelet Volume 8.6 fL (7.0-11.0); Mono # (Auto) 0.5 th/mm3 (0.0-0.9); Mono % (Auto) 7.3 % (0.0-8.0); Neut # (Auto) 5.5 th/mm3 (1.8-7.7); Neut % (Auto) 80.3 % (16.0-70.0); Platelet Count 135 th/mm3 (150-450); Red Blood Count 2.98 mil/mm3 (4.50-5.90); Red Cell Distribution Width 17.1 % (11.6-17.2); White Blood Count 6.8 th/mm3 (4.0-11.0)
[2018-07-29] MEDS: Beneprotein Powder Packet G-TUBE SCH ×2 (08:40→21:23)
[2018-07-29 08:55] LABS: Activated Partial Thrombo Time 33.6 sec (23.4-31.7); INR 1.2 Ratio; Prothrombin Time 11.9 sec (9.8-11.6)
[2018-07-29] MEDS ORDERED: CALCIUM GLUCONATE IV.SIG SCH (11:00)
[2018-07-29] MEDS ORDERED: ALBUMIN HUMAN 5% IV.SIG SCH (11:00)
[2018-07-29] MEDS ORDERED: Anticoagulant Citrate Dextrose 1,000 ML Solution EXTRACORPO SCH (11:00)
[2018-07-29] MEDS ORDERED: SODIUM CHLOR 0.9% IV.SIG SCH (11:00)
[2018-07-29] MEDS ORDERED: Heparin 10,000 UNITS/10 ML Vial (for IV use) IV.FLUSH PRN (11:00)
[2018-07-29] MEDS ORDERED: fentaNYL Citrate Inj 100 MCG/2 ML Ampul ONE (11:05)
[2018-07-29] MEDS ORDERED: Iohexol 350 MG/ML 50 ML Vial (for Rad Diag) G-TUBE ONE (11:25)
--- NOTE | 2018-07-29 12:16 | P.DIET ---
Nutritional Evaluation Type of nutrition evaluation: follow-up (TF FU) Nutrition consult regarding: Tube Feeding [place] [facility] [place] [facility] [place] Subjective Subjective Comments: Pt accidentally cut J tube with scissors, has not been receiving TF Objective - Diagnosis ARF, PNA, AMS, Rhabodomylosis - Objective [place] body weight: 62 kg % IBW: 130 (IBW = 136lb) Body Weight Used for Calculations: Actual (66.9kg (admission weight)) Energy Needs - Lower Range (kCal/kg): 25 Energy Needs - Upper Range (kCal/kg): 30 Lower Limit kCal/kg (kCals): 1,650 Upper Limit kCal/kg (kCals): 1,980 Lower Limit Protein Factor (Grams per Kg): 1 Upper Limit Protein Factor (Grams per Kg): 1.2 Lower Protein Needs (Protein): 66 Upper Protein Needs (Protein): 79 Dietitian Reviewed in Medical Record: Curent medications, Intake & Output, Labs , Medical history, Tube feeding Diet Order: TF'ing Speech Therapy Recommendations: Yes (Cleared for ice chips and water) Objective Comments: PMH: Boorhaave Syndrome, esophageal ostomy to neck bag, TIA, PTSD, PPM Labs: nutritionally unremarkable Medications; reviewed Feeding - Current Tube Feeding Tube Feeding Product: Jevity 1.5 Tube Feeding Method: Pump (Jevity 1.5ml running at 50ml/hour) Assessment Assessment: TF FU; Pt continues to be at nutritional risk r/t clinical course and PEG dependance. Weight previously increasing steadily but has now been remaining stable and trending back towards pt's usual body weight with CBW at 70.5kg. Pt was out of room when attempted to visit this afternoon getting J-tube replaced. Spoke with JEAN CLAUDE Dominguez who reports there are no issues with tube feed tolerance. At this time as there are no complications will recommend to continue with current TF order of Jevity 1.5 @ 50ml/hour once J-tube is replaced as it is appropriately meeting pt's assessed energy needs. Reviewed labs and medications , nothing to note. Will continue to monitor tolerance to TF, weight and clinical course. Recommendations: 1. Continue with Jevity 1.5 at 50ml/hour 2. Continue to monitor tolerance to TF 3. Continue to monitor weight 4. Continue to monitor labs Dietitian to Monitor: Lab values, Renal labs, Intake & Output, Tube feeding tolerance, Weight change
[2018-07-29] MEDS ORDERED: Acetaminophen 325 MG Tablet PO PRN (13:45)
--- NOTE | 2018-07-29 13:48 | P.PNONC ---
Subjective Interval history: He remains afebrile Discussed with patient that Dr. Jones has recommended 2 additional plasmapheresis treatments He denies any bleeding Gastric tube ordered for change out today Objective Vital Signs/Intake & Output: Vital Signs 07/28/18 16:00 07/28/18 20:00 07/29/18 00:00 Temperature 98.2 F 97.1 F L 96.2 F L Pulse Rate 83 61 86 Respiratory Rate 14 18 20 Blood Pressure 132/75 121/66 147/84 H Pulse Oximetry 97 96 99 07/29/18 04:00 07/29/18 08:00 07/29/18 12:00 Temperature 96.2 F L 97.9 F Pulse Rate 70 76 87 Respiratory Rate 19 18 Blood Pressure 140/88 113/49 L Pulse Oximetry 100 97 07/29/18 12:20 07/29/18 13:06 Temperature Pulse Rate 80 93 H Respiratory Rate Blood Pressure 167/97 H 155/96 H Pulse Oximetry 100 Intake & Output 07/28/18 07/29/18 07/29/18 18:59 06:59 18:59 Intake Total 2074 Balance 2074 Weight 155 lb 6.814 oz Intake: IV 1115 / 1115 1308 / 1308 D5W/1/2 NS Inj 1,000 ML @ 75 600 / 600 793 / 793 mls/hr IV.CONT .[id number] ISIAH Rx# :[id number] Vancomycin Inj 1,500 MG In NS 515 / 515 515 / 515 Inj 500 ML @ 250 mls/hr IV.SIG Q12H ISIAH Rx#:[id number] Oral 960 / 960 800 / 800 Other: # Voids 4 5 Result Diagrams: 07/29/18 06:03 07/28/18 04:40 Laboratory Results: Laboratory Results - last 24 hr 07/28/18 07/29/18 07/29/18 18:08 00:04 06:03 WBC RBC Hgb Hct MCV MCH MCHC RDW Plt Count MPV Neut % (Auto) Lymph % (Auto) [place] % (Auto) Eos % (Auto) Baso % (Auto) Neut # (Auto) Lymph # (Auto) [place] # (Auto) Eos # (Auto) Baso # (Auto) WBC Differential Differential Comment PT 11.9 H INR 1.2 APTT 33.6 H D Fibrinogen 160 L POC Glucose 132 H 124 H 07/29/18 07/29/18 07/29/18 06:03 10:41 13:16 WBC 6.8 RBC 2.98 L Hgb 9.9 L Hct 29.0 L MCV 97.2 MCH 33.2 MCHC 34.2 RDW 17.1 Plt Count 135 L MPV 8.6 Neut % (Auto) 80.3 H Lymph % (Auto) 11.7 [place] % (Auto) 7.3 Eos % (Auto) 0.5 Baso % (Auto) 0.2 Neut # (Auto) 5.5 Lymph # (Auto) 0.8 L [place] # (Auto) 0.5 Eos # (Auto) 0.0 Baso # (Auto) 0.0 WBC Differential . Differential Comment Auto diff final PT INR APTT Fibrinogen POC Glucose 107 113 H Culture Results: Microbiology 07/28/18 11:20 Aerobic Blood Culture - Preliminary Blood - Peripheral No growth in 1 day Anaerobic Blood Culture - Preliminary No growth in 1 day 07/28/18 11:25 Aerobic Blood Culture - Preliminary Blood - Peripheral No growth in 1 day Anaerobic Blood Culture - Preliminary No growth in 1 day 07/21/18 06:46 Aerobic Blood Culture - Final Blood - Peripheral No growth in 5 days Anaerobic Blood Culture - Final No growth in 5 days 07/21/18 07:00 Aerobic Blood Culture - Final Blood - Peripheral No growth in 5 days Anaerobic Blood Culture - Final No growth in 5 days Imaging Studies: Impressions Chest X-Ray 07/28/18 00:00 CONCLUSION: No acute cardiopulmonary disease. Medications: Active Medications Generic Name Dose Route Start Last Admin Trade Name Freq PRN Reason Stop Dose Admin Acetaminophen 650 mg 07/18/18 22:53 07/28/18 08:39 Tylenol Liq PO 650 mg Q6H PRN Administration temp > 100.4 Al Hydroxide/Mg Hydroxide 30 ml 06/30/18 11:38 07/07/18 15:45 Milk Of Magnesia Liq PO 30 ml Q12H PRN Administration Mild Constipation Albuterol 1 ampul 06/30/18 11:38 07/13/18 04:13 Duoneb Neb (Prn) NEB 1 ampul Q2HR NEB PRN Administration WHEEZING Fentanyl 1 patch 07/03/18 13:15 07/27/18 13:39 Duragesic 25 Mcg Patch.72hr T-DERMAL 1 patch Q72H ISIAH Administration Gabapentin 600 mg 07/18/18 18:00 07/29/18 13:22 Neurontin PO 600 mg QID ISIAH Administration Heparin Sodium (Porcine) 0 unit 07/11/18 14:35 07/29/18 11:50 Heparin Central Flush IV.FLUSH 1,000 unit DAILY PRN Administration SEE DOSE INSTRUCTIONS Hydrocortisone Acetate 20 mg 07/16/18 09:00 07/29/18 13:08 Cortef PO 20 mg TID ISIAH Administration Hydrocortisone Sodium Succinate 20 mg 07/28/18 16:15 07/29/18 06:25 Solucortef Inj IV.PUSH 20 mg Q8HR ISIAH Administration Hydromorphone HCl 8 mg 07/25/18 15:46 07/29/18 13:08 Dilaudid PO 8 mg Q4H PRN Administration Acute Pain 1 to 10 Hydromorphone HCl 1 mg 07/27/18 16:44 07/29/18 06:24 Dilaudid Pf Inj IV.PUSH 1 mg Q4H PRN Administration BREAKTHROUGH PAIN Dextrose/Sodium Chloride 1,000 mls @ 75 mls/hr 07/05/18 16:28 07/29/18 06:35 D5w/1/2 Ns Inj IV.CONT 75 mls/hr .[id number] ISIAH Infusion Vancomycin HCl 1,500 mg/ 515 mls @ 250 mls/hr 07/21/18 12:00 07/29/18 02:00 Sodium Chloride IV.SIG Infused Q12H ISIAH Infusion Lactulose 30 ml 06/30/18 11:38 07/19/18 09:15 Lactulose Liq PO 30 ml DAILY PRN Administration SEVERE CONSITIPATION Levetiracetam 750 mg 07/03/18 21:00 07/29/18 08:33 Keppra PO 750 mg BID ISIAH Administration Levothyroxine Sodium 75 mcg 07/04/18 06:00 07/29/18 06:24 Synthroid PO 75 mcg DAILY@0600 ISIAH Administration Lorazepam 1 mg 07/28/18 00:01 07/29/18 04:01 Ativan PO 1 mg Q6H PRN Administration ANXIETY Pantoprazole Sodium 40 mg 07/07/18 09:00 07/29/18 08:35 Protonix PO 40 mg DAILY ISIAH Administration Patch Removal 1 each 07/03/18 13:00 07/27/18 13:42 Remove Old Patch T-DERMAL 1 each Q72H ISIAH Administration Patch Removal 1 each 07/03/18 13:00 07/27/18 13:42 Remove Old Patch T-DERMAL 1 each Q72H ISIAH Administration Quetiapine Fumarate 400 mg 07/03/18 21:00 07/03/18 21:19 Seroquel PO Not Given BID ISIAH Sodium Chloride 2 ml 06/30/18 09:58 07/20/18 21:07 Ns Flush IV.FLUSH 2 ml PRN PRN Administration FLUSH AFTER USING IV ACCESS Tizanidine HCl 4 mg 07/23/18 01:00 07/29/18 06:24 Zanaflex PO 4 mg Q6H PRN Administration MUSCLE SPASM Trazodone HCl 50 mg 07/27/18 21:00 07/28/18 21:47 Desyrel PO 50 mg HS ISIAH Administration Whey 1 packet 07/10/18 21:00 07/29/18 08:40 Beneprotein Powder G-TUBE Not Given BID ISIAH Objective Remarks: GENERAL: Chronically ill-appearing young male patient, in no acute distress. SKIN: Warm and dry. HEAD: Normocephalic. EYES: No scleral icterus. No injection or drainage. NECK: Supple, trachea midline. Vas-Cath to right neck, no swelling erythema or oozing. Collection bag to left neck. CARDIOVASCULAR: + Tachycardic. RESPIRATORY: Posterior breath sounds distant clear, equal bilaterally. Nonlabored. GASTROINTESTINAL: Abdomen non-tender, nondistended. J-tube wrapped up in wash cloth. EXTREMITIES: No cyanosis, or edema. MUSCULOSKELETAL: Decreased muscle tone. RLE weaker than LLE. NEUROLOGICAL: No obvious focal deficit. Awake, alert, and oriented x3. PSYCHIATRIC: Appropriate mood and affect; insight and judgment normal. 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 Oncology consulted for further recommendations. 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 Plasmapheresis EOD x's 7 treatments. Patient completed 5 treatments of plasmapheresis yesterday. There was a delay in treatment #4 and 5 due to bacteremia. His Vas-Cath was removed and then replaced several days later for continuation of plasma exchange. 2. Neutropenia resolved after 1 dose of neupogen. Continue to monitor CBC. 3. Infectious disease following for positive blood cultures. Repeat blood cultures from yesterday show no growth times 1 day. Continue antibiotic management per ID. 4. Plan to give 1 unit cryoprecipitate today after plasma exchange. We will monitor coags. 5. New orders written for the 2 additional days of plasmapheresis per neurology to be done today and Sunday. This was given to dialysis and discussed with them. - Attending Statement Pt seen in room. Eager to continue with plasmapheresis; otherwise no complaints - plasmapheresis ordered and awaiting tx. Labs reviewed. Orders reviewed. Will f/u.
[2018-07-29] MEDS ORDERED: Sodium Chlor 0.9% Inj 250 ML IV.SIG SCH (14:00)
[2018-07-29] MEDS: Vancomycin Inj 1,500 MG in Sodium Chlor 0.9% Inj 500 ML IV.SIG SCH (14:05)
[2018-07-29] MEDS: Dextrose 5%/NaCl 0.45% Inj 1,000 ML IV.CONT SCH (15:02)
--- NOTE | 2018-07-29 15:24 | IR ---
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 CLINICAL DATA: This is the patient's initial encounter. Patient reports that signs and symptoms have been present for 1 day and indicates a pain score of 9/10. MEDICAL/SURGICAL HISTORY: Seizures. Boerhaave's syndrome, Adrenal insufficiency, Chronic back p ain, Opiate use, Pituitary dysfunction Pacemaker. Spit fistula esophagectomy, PEG tube placement, Di alysis catheter COMPARISON: No prior exams available for comparison. FLUORO TIME (min): 0.3 IMAGE SERIES: 1 RADIATION DOSE: 3mGy CAK SEDATION TIME (min): 30 CONTRAST (cc): 5cc Omnipaque (iohexol) 350 MEDICATION(S): 2mg midazolam (Versed) IV 100mcg fentanyl (Sublimaze) IV DEVICE(S): 22 [place] gastrostomy tube . . PROCEDURE: 1. Fluoroscopically guided gastrostomy tube exchange. 2. Conscious sedation with continuous EKG and oximetry monitoring. The risks, benefits and alternatives to the procedure were explained and verbal and written consent w as obtained. The site was prepped in sterile fashion. Full sterile technique was used, including ca p, mask, sterile gloves and gown and a large sterile sheet. Hand hygiene and 2% chlorhexidine and/or betadine/alcohol prep was utilized per protocol for cutaneous antisepsis. The skin and subcutaneous tissues were infiltrated with local anesthetic solution. The existing tube was accessed using sterile technique. The tube was removed over a 0.035 wire. A ne w tube was advanced over the wire and positioned into the stomach without difficulty. The balloon wa s inflated with appropriate volume of saline. Injection of positive contrast demonstrates good posit ion of the gastrostomy tube. Conscious sedation was performed with the prescribed dosages and duration as above in the presence of an independent trained radiology nurse to assist in the monitoring of the patient. EKG and oximetry remained stable throughout the procedure. The patient tolerated the procedure well and there were n o complications. The patient was sent to post anesthesia recovery in stable condition. CONCLUSION: 1. Uncomplicated gastrostomy tube exchange as above. Electronically signed by: Jefferson Gifford MD Board Certified Radiologist 07/29/2018 3:23 PM EST
--- NOTE | 2018-07-29 16:43 | P.PNIM ---
Subjective Interval history: Nursing denies any acute changes overnight. Patient is asking for increase his Zanaflex dosing although he likely has reached max safe dosing for the day. Scheduled for a PEG tube via IR today. Physical Exam Narrative: Sitting up in the bed, no acute distress Clear lungs bilaterally, unlabored breathing esophagectomy Ostomy bag in place Hrt sounds RRR moves all 4 extremities spontaneously PEG tube cut, residual fragment is clamped, insertion site appears unremarkable Results - Labs CBC & Chem 7: 08/06/18 16:01 08/06/18 08:45 Laboratory Results - last 24 hr 07/27/18 07/28/18 07/29/18 20:44 18:08 00:04 WBC RBC Hgb Hct MCV MCH MCHC RDW Plt Count MPV Neut % (Auto) Lymph % (Auto) [place] % (Auto) Eos % (Auto) Baso % (Auto) Neut # (Auto) Lymph # (Auto) [place] # (Auto) Eos # (Auto) Baso # (Auto) WBC Differential Differential Comment PT INR APTT Fibrinogen POC Glucose 132 H 124 H ALAN Screen Neg 07/29/18 07/29/18 07/29/18 06:03 06:03 10:41 WBC 6.8 RBC 2.98 L Hgb 9.9 L Hct 29.0 L MCV 97.2 MCH 33.2 MCHC 34.2 RDW 17.1 Plt Count 135 L MPV 8.6 Neut % (Auto) 80.3 H Lymph % (Auto) 11.7 [place] % (Auto) 7.3 Eos % (Auto) 0.5 Baso % (Auto) 0.2 Neut # (Auto) 5.5 Lymph # (Auto) 0.8 L [place] # (Auto) 0.5 Eos # (Auto) 0.0 Baso # (Auto) 0.0 WBC Differential . Differential Comment Auto diff final PT 11.9 H INR 1.2 APTT 33.6 H D Fibrinogen 160 L POC Glucose 107 ALAN Screen 07/29/18 13:16 WBC RBC Hgb Hct MCV MCH MCHC RDW Plt Count MPV Neut % (Auto) Lymph % (Auto) [place] % (Auto) Eos % (Auto) Baso % (Auto) Neut # (Auto) Lymph # (Auto) [place] # (Auto) Eos # (Auto) Baso # (Auto) WBC Differential Differential Comment PT INR APTT Fibrinogen POC Glucose 113 H ALAN Screen Microbiology 07/28/18 11:20 Blood - Peripheral Aerobic Blood Culture - Preliminary No growth in 1 day 07/28/18 11:20 Blood - Peripheral Anaerobic Blood Culture - Preliminary No growth in 1 day 07/28/18 11:25 Blood - Peripheral Aerobic Blood Culture - Preliminary No growth in 1 day 07/28/18 11:25 Blood - Peripheral Anaerobic Blood Culture - Preliminary No growth in 1 day - Imaging Impressions Catheter Change 07/29/18 00:00 CONCLUSION: 1. Uncomplicated gastrostomy tube exchange as above. - Procedures 07/08 lumbar puncture 07/11 Vas-cath placement Assessment and Plan - Assessment (1) Neutropenic precautions Status: Acute (2) Neutropenic fever Code(s): D70.9 - Neutropenia, unspecified; R50.81 - Fever presenting with conditions classified elsewhere Status: Acute (3) Guillain Julio syndrome Code(s): G61.0 - Guillain-[place] syndrome Status: Acute - Plan Patient is a pleasant 32-year-old male presenting with lower extremity weakness 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 Developed bacteremia with neutropenic fever, had his Vas-Cath removed. ID comanaged abx, bacteremia and fever cleared based on repeat cultures, had a new Vas-Cath placed on 07/25/18, resumed fourth plasmapheresis treatment on 07/25/18. Guillan Julio syndrome Previously on plasmapheresis which had to be stopped due to MRSA and enterococcus bacteremia Was restarted on plasmapheresis on 07/25/18 Total number of treatments was extended to 7, has now underwent 6/7 Cut peg tube -Originally was placed by thoracic surgeon, patient accidentally cut the tube on 07/26 -IR consulted by GI for tube placement for today Neutropenia -No recurrence of fever, likely secondary to hiatus and vancomycin dosing secondary to loss of IV access. Repeat blood cultures since 07/28 so far negative Hematology following, prior bone marrow bx from [facility] nondiagnostic -neupogen per hematology on 07/28/17 Discussed with hematology, ? 2/2 AEDs vs undiagnosed underlying systemic dx such as HIV maybe - HIV screening tests ordered Bacteremia MRSA and enterococcus Continue vancomycin and micafungin per ID repeat blood cultures negative from 07/21 Chronic pain hx of drug use, high tolerance IV dilaudid to q 4hrs, maintain po Dilaudid every 4 hours Narcan is ordered in case patient becomes sedated, he insisted he will not Thrombocytopenia stabilized, hematology following 2/2 splenomegaly and/or Hep C, BM bx results in chart Adrenal insufficiency Has had trouble with hypoglycemia, stable at this time. Continue oral hydrocortisone 20 mg 3 times daily. Patient outpatient medical officer Dr. Ornelas . Continue testosterone injections as an outpt. History seizure disorder Continue Keppra and gabapentin 600 TID. EEG reviewed and no focal abnormality and no seizures noted Consider history of possible withdrawal related seizures h/o bradycardia Patient with [employer] pacer Boerhaave Syndrome (onset < 1 yr 2/2 seizures) Patient had split fistula esophagectomy allowed po liquid foods, no solid foods Patient's surgeon recommended against food at this time Surgeon; Dr. Rudi Medina [phone]/ Soniya BREAUX [phone]). Previous J-tube placement. Hepatitis profile: + Hep C Ig ab US abdomen: Hepatosplenomegaly On Protonix 40 mg p.o. 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 Otherwise patient to be discharged to SNF/rehab once secured after plasmapharesis complete and cleared by ID.
[2018-07-29] MEDS: traZODone 50 MG Tablet PO SCH (21:24)
[2018-07-30] MEDS: Vancomycin Inj 1,500 MG in Sodium Chlor 0.9% Inj 500 ML IV.SIG SCH ×2 (01:20→12:15)
[2018-07-30] MEDS: Dextrose 5%/NaCl 0.45% Inj 1,000 ML IV.CONT SCH ×2 (02:41→17:41)
[2018-07-30] MEDS: LORazepam 1 MG Tablet PO PRN ×4 (03:38→21:34)
[2018-07-30] MEDS: Levothyroxine 75 MCG Tablet PO SCH (05:39)
[2018-07-30 07:01] LABS: Baso % (Auto) 0.4 % (0.0-2.0); Eos % (Auto) 0.7 % (0.0-4.0); Hematocrit 24.7 % (39.0-51.0); Hemoglobin 8.3 gm/dL (13.0-17.0); Lymph # (Auto) 0.7 th/mm3 (1.0-4.8); Lymph % (Auto) 16.2 % (9.0-44.0); Mean Corpuscular HGB Conc 33.7 % (32.0-36.0); Mean Corpuscular Hemoglobin 32.6 pg (27.0-34.0); Mean Corpuscular Volume 96.8 fL (80.0-100.0); Mean Platelet Volume 8.6 fL (7.0-11.0); Mono # (Auto) 0.4 th/mm3 (0.0-0.9); Mono % (Auto) 9.4 % (0.0-8.0); Neut % (Auto) 73.3 % (16.0-70.0); Platelet Count 101 th/mm3 (150-450); Red Blood Count 2.55 mil/mm3 (4.50-5.90); Red Cell Distribution Width 16.7 % (11.6-17.2); White Blood Count 4.1 th/mm3 (4.0-11.0)
[2018-07-30 07:31] LABS: Glomerular Filtration Rate Greater Than 89 mL/min (>89)
[2018-07-30] MEDS ORDERED: Sodium Chlor 0.9% Inj 250 ML IV.SIG SCH (09:00)
[2018-07-30] MEDS: levETIRAcetam 250 MG Tablet PO SCH ×2 (09:19→20:07)
[2018-07-30] MEDS: Hydrocortisone 10 MG Tablet PO SCH ×3 (09:19→17:40)
[2018-07-30] MEDS: Gabapentin 300 MG Capsule PO SCH ×4 (09:19→20:07)
[2018-07-30] MEDS: Beneprotein Powder Packet G-TUBE SCH (09:22)
--- NOTE | 2018-07-30 10:16 | P.PNONC ---
Subjective Interval history: Pt ambulating around the room. Still reports pain all over and weakness in right foot. s/p plasma phoresis #6 yesterday. He states that he did not get cryo yesterday. This has been ordered again today , and it appears nurse is getting ready to hang. Objective Vital Signs/Intake & Output: Vital Signs 07/29/18 12:00 07/29/18 12:20 07/29/18 13:06 Temperature Pulse Rate 87 80 93 H Respiratory Rate Blood Pressure 167/97 H 155/96 H Pulse Oximetry 100 07/29/18 16:00 07/29/18 20:00 07/29/18 22:33 Temperature 97.9 F 98.5 F 96 F L Pulse Rate 64 103 H 65 Respiratory Rate 18 20 20 Blood Pressure 111/59 L 150/67 H 99/55 L Pulse Oximetry 100 99 95 07/29/18 23:42 07/30/18 00:00 07/30/18 04:00 Temperature 98.1 F 97.9 F Pulse Rate 87 59 L 66 Respiratory Rate 15 15 14 Blood Pressure 142/80 H 121/66 Pulse Oximetry 97 97 07/30/18 08:00 Temperature 98.0 F Pulse Rate 91 H Respiratory Rate 18 Blood Pressure 145/88 H Pulse Oximetry 98 Intake & Output 07/29/18 07/30/18 07/30/18 18:59 06:59 18:59 Intake Total 515 / 515 2016 Output Total 200 / 200 Balance 515 / 515 1817 / 1817 Weight 73.8 kg Intake: IV 515 / 515 1122 / 1122 D5W/1/2 NS Inj 1,000 ML @ 75 0 / 0 607 / 607 mls/hr IV.CONT .[id number] ISIAH Rx# :[id number] Vancomycin Inj 1,500 MG In NS 515 / 515 515 / 515 Inj 500 ML @ 250 mls/hr IV.SIG Q12H ISIAH Rx#:[id number] Oral 560 / 560 Other 100 / 100 Pre-Pooled Cryo Thawed 10units 100 / 100 Unit [id number] Intake (Blood Product) Amt 235 / 235 Pre-Pooled Cryo Thawed 10units 235 / 235 Unit [id number] Output: Urine 200 / 200 Other: # Voids 4 2 Date of Last Bowel Movement 07/25/18 07/25/18 Result Diagrams: 07/30/18 04:50 07/30/18 04:30 Laboratory Results: Laboratory Results - last 24 hr 07/27/18 07/29/18 07/29/18 20:44 10:41 13:16 WBC RBC Hgb Hct MCV MCH MCHC RDW Plt Count MPV Neut % (Auto) Lymph % (Auto) [place] % (Auto) Eos % (Auto) Baso % (Auto) Neut # (Auto) Lymph # (Auto) [place] # (Auto) Eos # (Auto) Baso # (Auto) WBC Differential Differential Comment Fibrinogen Creatinine Estimated GFR POC Glucose 107 113 H ALAN Screen Neg Blood Bank Comment 07/29/18 07/29/18 07/30/18 13:45 16:41 04:30 WBC RBC Hgb Hct MCV MCH MCHC RDW Plt Count MPV Neut % (Auto) Lymph % (Auto) [place] % (Auto) Eos % (Auto) Baso % (Auto) Neut # (Auto) Lymph # (Auto) [place] # (Auto) Eos # (Auto) Baso # (Auto) WBC Differential Differential Comment Fibrinogen Creatinine 0.48 L Estimated GFR Greater than 89 POC Glucose 129 H ALAN Screen Blood Bank Comment 07/30/18 07/30/18 07/30/18 04:30 04:50 05:39 WBC 4.1 RBC 2.55 L Hgb 8.3 L Hct 24.7 L MCV 96.8 MCH 32.6 MCHC 33.7 RDW 16.7 Plt Count 101 L MPV 8.6 Neut % (Auto) 73.3 H Lymph % (Auto) 16.2 [place] % (Auto) 9.4 H Eos % (Auto) 0.7 Baso % (Auto) 0.4 Neut # (Auto) 3.0 Lymph # (Auto) 0.7 L [place] # (Auto) 0.4 Eos # (Auto) 0.0 Baso # (Auto) 0.0 WBC Differential . Differential Comment Auto diff final Fibrinogen 94 L* Creatinine Estimated GFR POC Glucose 96 ALAN Screen Blood Bank Comment 07/30/18 08:31 WBC RBC Hgb Hct MCV MCH MCHC RDW Plt Count MPV Neut % (Auto) Lymph % (Auto) [place] % (Auto) Eos % (Auto) Baso % (Auto) Neut # (Auto) Lymph # (Auto) [place] # (Auto) Eos # (Auto) Baso # (Auto) WBC Differential Differential Comment Fibrinogen Creatinine Estimated GFR POC Glucose ALAN Screen Blood Bank Comment Culture Results: Microbiology 07/28/18 11:20 Aerobic Blood Culture - Preliminary Blood - Peripheral No growth in 1 day Anaerobic Blood Culture - Preliminary No growth in 1 day 07/28/18 11:25 Aerobic Blood Culture - Preliminary Blood - Peripheral No growth in 1 day Anaerobic Blood Culture - Preliminary No growth in 1 day Imaging Studies: Impressions Catheter Change 07/29/18 00:00 CONCLUSION: 1. Uncomplicated gastrostomy tube exchange as above. Medications: Active Medications Generic Name Dose Route Start Last Admin Trade Name Freq PRN Reason Stop Dose Admin Acetaminophen 650 mg 07/18/18 22:53 07/28/18 08:39 Tylenol Liq PO 650 mg Q6H PRN Administration temp > 100.4 Al Hydroxide/Mg Hydroxide 30 ml 06/30/18 11:38 07/07/18 15:45 Milk Of Magnesia Liq PO 30 ml Q12H PRN Administration Mild Constipation Albuterol 1 ampul 06/30/18 11:38 07/13/18 04:13 Duoneb Neb (Prn) NEB 1 ampul Q2HR NEB PRN Administration WHEEZING Fentanyl 1 patch 07/03/18 13:15 07/27/18 13:39 Duragesic 25 Mcg Patch.72hr T-DERMAL 1 patch Q72H ISIAH Administration Gabapentin 600 mg 07/18/18 18:00 07/30/18 09:19 Neurontin PO 600 mg QID ISIAH Administration Heparin Sodium (Porcine) 0 unit 07/11/18 14:35 07/29/18 11:50 Heparin Central Flush IV.FLUSH 1,000 unit DAILY PRN Administration SEE DOSE INSTRUCTIONS Hydrocortisone Acetate 20 mg 07/16/18 09:00 07/30/18 09:19 Cortef PO 20 mg TID ISIAH Administration Hydromorphone HCl 8 mg 07/25/18 15:46 07/30/18 09:20 Dilaudid PO 8 mg Q4H PRN Administration Acute Pain 1 to 10 Hydromorphone HCl 1 mg 07/27/18 16:44 07/29/18 06:24 Dilaudid Pf Inj IV.PUSH 1 mg Q4H PRN Administration BREAKTHROUGH PAIN Dextrose/Sodium Chloride 1,000 mls @ 75 mls/hr 07/05/18 16:28 07/30/18 02:41 D5w/1/2 Ns Inj IV.CONT 75 mls/hr .[id number] ISIAH Administration Vancomycin HCl 1,500 mg/ 515 mls @ 250 mls/hr 07/21/18 12:00 07/30/18 04:24 Sodium Chloride IV.SIG Infused Q12H ISIAH Infusion Lactulose 30 ml 06/30/18 11:38 07/19/18 09:15 Lactulose Liq PO 30 ml DAILY PRN Administration SEVERE CONSITIPATION Levetiracetam 750 mg 07/03/18 21:00 07/30/18 09:19 Keppra PO 750 mg BID ISIAH Administration Levothyroxine Sodium 75 mcg 07/04/18 06:00 07/30/18 05:39 Synthroid PO 75 mcg DAILY@0600 ISIAH Administration Lorazepam 1 mg 07/28/18 00:01 07/30/18 09:20 Ativan PO 1 mg Q6H PRN Administration ANXIETY Pantoprazole Sodium 40 mg 07/07/18 09:00 07/30/18 09:19 Protonix PO 40 mg DAILY ISIAH Administration Patch Removal 1 each 07/03/18 13:00 07/27/18 13:42 Remove Old Patch T-DERMAL 1 each Q72H ISIAH Administration Patch Removal 1 each 07/03/18 13:00 07/27/18 13:42 Remove Old Patch T-DERMAL 1 each Q72H ISIAH Administration Quetiapine Fumarate 400 mg 07/03/18 21:00 07/03/18 21:19 Seroquel PO Not Given BID ISIAH Sodium Chloride 2 ml 06/30/18 09:58 07/20/18 21:07 Ns Flush IV.FLUSH 2 ml PRN PRN Administration FLUSH AFTER USING IV ACCESS Tizanidine HCl 4 mg 07/23/18 01:00 07/30/18 09:20 Zanaflex PO 4 mg Q6H PRN Administration MUSCLE SPASM Trazodone HCl 50 mg 07/27/18 21:00 07/29/18 21:24 Desyrel PO 50 mg HS ISIAH Administration Whey 1 packet 07/10/18 21:00 07/30/18 09:22 Beneprotein Powder G-TUBE Not Given BID ISIAH Objective Remarks: GENERAL: Chronically ill-appearing young male patient, in no acute distress. SKIN: Warm and dry. HEAD: Normocephalic. EYES: No scleral icterus. No injection or drainage. NECK: Supple, trachea midline. Vas-Cath to right neck, drsg dry, no erythema or drainage. Collection bag to left neck. CARDIOVASCULAR: Normal rate and rhythm. RESPIRATORY: Posterior breath sounds clear, equal bilaterally. Nonlabored. GASTROINTESTINAL: Abdomen non-tender, nondistended. EXTREMITIES: No cyanosis, or edema. MUSCULOSKELETAL: Decreased muscle tone. RLE weaker than LLE. NEUROLOGICAL: No obvious focal deficit. Awake, alert, and oriented x3. PSYCHIATRIC: Appropriate mood and affect; insight and judgment normal. 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 Oncology consulted for further recommendations. 1. Guillan Fulda syndrome syndrome: followed by neurology. Plasmapheresis EOD x's 7 treatments. Patient completed 6 treatments of plasmapheresis yesterday. There was a delay in treatment #4 and 5 due to bacteremia. His Vas-Cath was removed and then replaced several days later for continuation of plasma exchange. 2. Neutropenia resolved after 1 dose of neupogen. Continue to monitor CBC. 3. Bacteremia, infectious disease following for positive blood cultures. Repeat blood cultures from yesterday show no growth times 1 day. Continue antibiotic management per ID. 4. Patient reports he did not get cryoprecipitate yesterday. This is been reordered this morning. We will repeat a fibrinogen level in the a.m. 5. Repeat immunoglobulin panel. 6. Pain management per attending. - Attending Statement Pt seen. Walking about in the room. PE unchanged. Labs reviewed. Cryoprecipitate infusion today. Check fibrinogen in AM before next pheresis tomorrow. D/w pt and answered all his questions.
[2018-07-30 10:20] LABS: Immunoglobulin A 71 mg/dL (80-441); Immunoglobulin G 367 mg/dL (650-1600)
[2018-07-30 10:30] LABS: Immunoglobulin M 55 mg/dL (43-265)
--- NOTE | 2018-07-30 10:40 | P.PNIM ---
Subjective Interval history: Patient sitting upright in bed. Occasionally appears drowsy during conversation. When asked a question the patient awakens and is alert responding to questions and commands appropriately. Patient says he did not have a good night sleep last night. No other complaints from the patient. Physical Exam Vital signs: Vital Signs 07/29/18 12:00 07/29/18 12:20 07/29/18 13:06 Temperature Pulse Rate 87 80 93 H Respiratory Rate Blood Pressure 167/97 H 155/96 H Pulse Oximetry 100 07/29/18 16:00 07/29/18 20:00 07/29/18 22:33 Temperature 97.9 F 98.5 F 96 F L Pulse Rate 64 103 H 65 Respiratory Rate 18 20 20 Blood Pressure 111/59 L 150/67 H 99/55 L Pulse Oximetry 100 99 95 07/29/18 23:42 07/30/18 00:00 07/30/18 04:00 Temperature 98.1 F 97.9 F Pulse Rate 87 59 L 66 Respiratory Rate 15 15 14 Blood Pressure 142/80 H 121/66 Pulse Oximetry 97 97 07/30/18 08:00 Temperature 98.0 F Pulse Rate 91 H Respiratory Rate 18 Blood Pressure 145/88 H Pulse Oximetry 98 Intake & Output 07/29/18 07/30/18 07/30/18 18:59 06:59 18:59 Intake Total 515 / 515 2016 Output Total 200 / 200 Balance 515 / 515 1817 / 1817 Weight 73.8 kg Intake: IV 515 / 515 1122 / 1122 D5W/1/2 NS Inj 1,000 ML @ 75 0 / 0 607 / 607 mls/hr IV.CONT .[id number] SIIAH Rx# :[id number] Vancomycin Inj 1,500 MG In NS 515 / 515 515 / 515 Inj 500 ML @ 250 mls/hr IV.SIG Q12H ISIAH Rx#:[id number] Oral 560 / 560 Other 100 / 100 Pre-Pooled Cryo Thawed 10units 100 / 100 Unit [id number] Intake (Blood Product) Amt 235 / 235 Pre-Pooled Cryo Thawed 10units 235 / 235 Unit [id number] Output: Urine 200 / 200 Other: # Voids 4 2 Date of Last Bowel Movement 07/25/18 07/25/18 Narrative: General patient sitting upright in bed, appears slightly drowsy. Wakes up when his name is called. HEENT extraocular movements are intact, Vas-Cath on the right. Cardiovascular S1-S2 audible, RRR, Respiratory clear to auscultation bilaterally Abdomen soft, nontender, nondistended, normal bowel sounds, G-tube in place Extremities no edema 2+ distal pulses in bilateral upper and lower extremities Neuro patient can move all 4 extremities. The patient does complain of weakness of bilateral lower extremities and slight decrease in sensation in both of his lower extremities. Results - Labs CBC & Chem 7: 07/30/18 04:50 07/30/18 04:30 Laboratory Results - last 24 hr 07/27/18 07/29/18 07/29/18 20:44 10:41 13:16 WBC RBC Hgb Hct MCV MCH MCHC RDW Plt Count MPV Neut % (Auto) Lymph % (Auto) [place] % (Auto) Eos % (Auto) Baso % (Auto) Neut # (Auto) Lymph # (Auto) [place] # (Auto) Eos # (Auto) Baso # (Auto) WBC Differential Differential Comment Fibrinogen Creatinine Estimated GFR POC Glucose 107 113 H ALAN Screen Neg Blood Bank Comment 07/29/18 07/29/18 07/30/18 13:45 16:41 04:30 WBC RBC Hgb Hct MCV MCH MCHC RDW Plt Count MPV Neut % (Auto) Lymph % (Auto) [place] % (Auto) Eos % (Auto) Baso % (Auto) Neut # (Auto) Lymph # (Auto) [place] # (Auto) Eos # (Auto) Baso # (Auto) WBC Differential Differential Comment Fibrinogen Creatinine 0.48 L Estimated GFR Greater than 89 POC Glucose 129 H ALAN Screen Blood Bank Comment 07/30/18 07/30/18 07/30/18 04:30 04:50 05:39 WBC 4.1 RBC 2.55 L Hgb 8.3 L Hct 24.7 L MCV 96.8 MCH 32.6 MCHC 33.7 RDW 16.7 Plt Count 101 L MPV 8.6 Neut % (Auto) 73.3 H Lymph % (Auto) 16.2 [place] % (Auto) 9.4 H Eos % (Auto) 0.7 Baso % (Auto) 0.4 Neut # (Auto) 3.0 Lymph # (Auto) 0.7 L [place] # (Auto) 0.4 Eos # (Auto) 0.0 Baso # (Auto) 0.0 WBC Differential . Differential Comment Auto diff final Fibrinogen 94 L* Creatinine Estimated GFR POC Glucose 96 ALAN Screen Blood Bank Comment 07/30/18 08:31 WBC RBC Hgb Hct MCV MCH MCHC RDW Plt Count MPV Neut % (Auto) Lymph % (Auto) [place] % (Auto) Eos % (Auto) Baso % (Auto) Neut # (Auto) Lymph # (Auto) [place] # (Auto) Eos # (Auto) Baso # (Auto) WBC Differential Differential Comment Fibrinogen Creatinine Estimated GFR POC Glucose ALAN Screen Blood Bank Comment Microbiology 07/28/18 11:20 Blood - Peripheral Aerobic Blood Culture - Preliminary No growth in 1 day 07/28/18 11:20 Blood - Peripheral Anaerobic Blood Culture - Preliminary No growth in 1 day 07/28/18 11:25 Blood - Peripheral Aerobic Blood Culture - Preliminary No growth in 1 day 07/28/18 11:25 Blood - Peripheral Anaerobic Blood Culture - Preliminary No growth in 1 day - Imaging Impressions Catheter Change 07/29/18 00:00 CONCLUSION: 1. Uncomplicated gastrostomy tube exchange as above. 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 During that admission patient was found to have bacteremia with neutropenic fever. His Vas-Cath was removed. New Vas-Cath placed on 07/25/18. Patient is in the hospital receiving plasmapheresis. 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 Patient has received 6 of 7 treatments. 2. Cut PEG tube The patient originally had PEG tube placed by thoracic surgeon, patient accidentally cut the tube on 07/26/2018. Interventional radiology was consulted by GI and PEG tube was replaced yesterday. Continue feeds through the PEG tube. 3. Neutropenia One febrile episode during the hospitalization. The patient has been afebrile for the past few days. Oncology following the patient. As per documentation the patient had a prior bone marrow biopsy from [facility] which was nondiagnostic Neupogen started by hematology on 07/28 HIV screen negative 4. Bacteremia Afebrile over the past couple of days. Cultures from 07/28 are negative MRSA and enterococcus Continue vancomycin as per infectious disease recommendations 5. Chronic pain Patient is a history of drug use, high tolerance. Continue p.o. Dilaudid, IV pain meds for breakthrough pain. 6. Thrombocytopenia Likely secondary to hepatitis C. No current signs of bleeding. Hematology following the patient, will follow up with the recognitions 7. Adrenal insufficiency Blood sugars are stable. Pressure stable. Continue p.o. 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 Continue testosterone injections outpatient. 8. 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 Rudi Medina [phone]/ Soniya BREAUX [phone]). Previous J-tube placement. Hepatitis profile: + Hep C Ig ab US abdomen: Hepatosplenomegaly On Protonix 40 mg p.o. for GI prophylaxis Continue tube feeds via J-tube change to [place] with goal rate 70ml/hr Patient cut his J-tube apparently accidentally, replaced. SCDs for DVT prophylaxis 10. History of bradycardia Patient with [employer] pacer Discharge Planning: Referral out to [facility] to see if they will take pt to evaluate for underlying illness given pt's peculiar hx of bradycardia requiring pacer, seizure d/o resulting in Borhave syndrome, recurrent neutropenia, and adrenal insufficiency. Otherwise patient to be discharged to SNF/rehab once secured after plasmapharesis complete and cleared by ID.
--- NOTE | 2018-07-30 12:46 | P.DIET ---
Nutritional Evaluation Type of nutrition evaluation: follow-up (TF FU) Nutrition consult regarding: Tube Feeding Nutrition screening: MDC (TF'ing) Screening comments: 06/30 MDC for TF'ing Subjective Subjective Comments: Pt accidentally cut J tube with scissors, has not been receiving TF Objective - Diagnosis ARF, PNA, AMS, Rhabodomylosis - Objective [place] body weight: 62 kg % IBW: 130 (IBW = 136lb) Body Weight Used for Calculations: Actual (66.9kg (admission weight)) Energy Needs - Lower Range (kCal/kg): 28 Energy Needs - Upper Range (kCal/kg): 32 Lower Limit kCal/kg (kCals): 2,072 Upper Limit kCal/kg (kCals): 2,368 Lower Limit Protein Factor (Grams per Kg): 1.2 Upper Limit Protein Factor (Grams per Kg): 1.5 Lower Protein Needs (Protein): 88 Upper Protein Needs (Protein): 111 Dietitian Reviewed in Medical Record: Curent medications, Intake & Output, Labs , Medical history, Tube feeding Diet Order: TF'ing Speech Therapy Recommendations: Yes (Cleared for ice chips and water) Objective Comments: PMH: Boorhaave Syndrome, esophageal ostomy to neck bag, TIA, PTSD, PPM Labs: nutritionally unremarkable Medications; reviewed Feeding - Current Tube Feeding Tube Feeding Product: Jevity 1.5 Tube Feeding Method: Pump (Jevity 1.5ml running at 50ml/hour) Assessment Assessment: Received phone call from pt's mom today regarding clinical course and TF. Had a very long detailed discussion with pt's mother who expressed her concerns regarding TF. Pt's mother asked if there is any other formula option that would be more appropriate for him regarding his autoimmune diseases, to which I explained to her that Jevity is the most appropriate formula that we have in house at this time to best meet his nutritional needs. After discussion pt's mother was very understanding and appreciative of TF explanation. She also provided me with pt's previous weight history to which I was unaware of. Mother reports that pt's UBW is 195-203#. Per pt he reported his UBW to be 150# but mother states he lost weight after esophagectomy and that is not his real normal body weight. After explanation she expressed her concern that she would like to increase his TF rate especially since there are times when he stops it on his own to add coffee and will empty out the TF contents remaining in his TF , therefore not receiving all of his TF. Pt's energy and protein needs have been reassessed and I explained to pt's mom that I am comfortable with increasing TF rate to Jevity 1. @ 60mL per hour to provide 2160kcal, 92g protein and 1094 ml free water. Will continue to monitor tolerance to TF and clinical course. Recommendations: 1. Increase rate of Jevity to 60mL/ hour 2. Continue to monitor tolerance to TF 3. Continue to monitor weight 4. Continue to monitor labs Dietitian to Monitor: Lab values, Renal labs, Intake & Output, Tube feeding tolerance, Weight change
[2018-07-30] MEDS: HYDROmorphone PF Inj 0.5 MG/0.5 ML Syringe IV.PUSH PRN (19:52)
[2018-07-30] MEDS: traZODone 50 MG Tablet PO SCH (20:07)
[2018-07-31] MEDS: Vancomycin Inj 1,500 MG in Sodium Chlor 0.9% Inj 500 ML IV.SIG SCH ×2 (00:17→12:27)
[2018-07-31] MEDS: Dextrose 5%/NaCl 0.45% Inj 1,000 ML IV.CONT SCH ×3 (02:41→18:08)
[2018-07-31] MEDS: LORazepam 1 MG Tablet PO PRN ×3 (03:13→15:49)
[2018-07-31] MEDS: HYDROmorphone PF Inj 0.5 MG/0.5 ML Syringe IV.PUSH PRN ×5 (03:14→20:49)
[2018-07-31] MEDS: Levothyroxine 75 MCG Tablet PO SCH (05:29)
[2018-07-31 06:10] LABS: Baso % (Auto) 0.7 % (0.0-2.0); Eos % (Auto) 1.3 % (0.0-4.0); Hematocrit 23.2 % (39.0-51.0); Hemoglobin 7.9 gm/dL (13.0-17.0); Lymph # (Auto) 0.4 th/mm3 (1.0-4.8); Lymph % (Auto) 21.9 % (9.0-44.0); Mean Corpuscular HGB Conc 33.9 % (32.0-36.0); Mean Corpuscular Hemoglobin 32.7 pg (27.0-34.0); Mean Corpuscular Volume 96.4 fL (80.0-100.0); Mean Platelet Volume 8.9 fL (7.0-11.0); Mono # (Auto) 0.2 th/mm3 (0.0-0.9); Mono % (Auto) 13.9 % (0.0-8.0); Neut # (Auto) 1.1 th/mm3 (1.8-7.7); Neut % (Auto) 62.2 % (16.0-70.0); Platelet Count 82 th/mm3 (150-450); Red Blood Count 2.41 mil/mm3 (4.50-5.90); Red Cell Distribution Width 16.5 % (11.6-17.2); White Blood Count 1.7 th/mm3 (4.0-11.0)
[2018-07-31 07:48] LABS: Lymphocytes 23 % (9-44); Monocytes 8 % (0-8); Platelet Morphology Normal (Normal)
[2018-07-31] MEDS: Gabapentin 300 MG Capsule PO SCH ×4 (09:03→20:49)
[2018-07-31] MEDS: levETIRAcetam 250 MG Tablet PO SCH ×2 (09:03→20:45)
[2018-07-31] MEDS: Hydrocortisone 10 MG Tablet PO SCH ×3 (09:03→17:29)
--- NOTE | 2018-07-31 11:26 | P.PNONC ---
Subjective Interval history: Patient ambulating around the room. Subjectively reports his weakness has improved. Still reports overall pain, unchanged. Scheduled for plasmapheresis #7 today. Plan to transfuse cryoprecipitate after plasma exchange. Objective Vital Signs/Intake & Output: Vital Signs 07/30/18 12:00 07/30/18 16:00 07/30/18 20:00 Temperature 97.9 F 97.9 F 97.7 F Pulse Rate 83 60 87 Respiratory Rate 18 18 18 Blood Pressure 135/82 145/92 H 143/71 H Pulse Oximetry 100 97 98 07/31/18 00:00 07/31/18 04:00 07/31/18 08:00 Temperature 97.9 F 97.9 F 98.9 F Pulse Rate 69 90 139 H Respiratory Rate 18 17 20 Blood Pressure 129/66 164/82 H 157/84 H Pulse Oximetry 99 98 100 Intake & Output 07/30/18 07/31/18 07/31/18 18:59 06:59 18:59 Intake Total 1060 / 1060 1215 / 1215 Balance 1060 / 1060 1215 / 1215 Weight 72.9 kg Intake: IV 830 / 830 1215 / 1215 D5W/1/2 NS Inj 1,000 ML @ 75 300 / 300 700 / 700 mls/hr IV.CONT .[id number] ISIAH Rx# :[id number] NS Inj 250 ML @ 15 mls/hr IV. 15 / 15 SIG ONCE ISIAH Rx#:[id number] Vancomycin Inj 1,500 MG In NS 515 / 515 515 / 515 Inj 500 ML @ 250 mls/hr IV.SIG Q12H ISIAH Rx#:[id number] Oral 0 / 0 Intake (Blood Product) Amt 230 / 230 Pre-Pooled Cryo Thawed 10units 230 / 230 Unit [id number] Other: # Voids 5 0 Date of Last Bowel Movement 07/25/18 07/25/18 07/25/18 # Bowel Movements 0 Result Diagrams: 08/05/18 11:12 08/06/18 08:45 Laboratory Results: Laboratory Results - last 24 hr 07/30/18 07/30/18 07/31/18 12:34 17:49 04:15 WBC 1.7 L D RBC 2.41 L Hgb 7.9 L Hct 23.2 L MCV 96.4 MCH 32.7 MCHC 33.9 RDW 16.5 Plt Count 82 L MPV 8.9 Prelim Diff (Auto) Slide review pending Neut % (Auto) 62.2 Lymph % (Auto) 21.9 [place] % (Auto) 13.9 H Eos % (Auto) 1.3 Baso % (Auto) 0.7 Neut # (Auto) 1.1 L Lymph # (Auto) 0.4 L [place] # (Auto) 0.2 Eos # (Auto) 0.0 Baso # (Auto) 0.0 WBC Differential Manual diff final Seg Neuts % (Manual) 68 Band Neuts % (Manual) 1 Lymphocytes % (Manual) 23 Monocytes % (Manual) 8 Abs Neuts (Manual) 1.2 L Differential Comment . Platelet Estimate Low L Platelet Morphology Normal Fibrinogen POC Glucose 102 115 H 07/31/18 04:15 WBC RBC Hgb Hct MCV MCH MCHC RDW Plt Count MPV Prelim Diff (Auto) Neut % (Auto) Lymph % (Auto) [place] % (Auto) Eos % (Auto) Baso % (Auto) Neut # (Auto) Lymph # (Auto) [place] # (Auto) Eos # (Auto) Baso # (Auto) WBC Differential Seg Neuts % (Manual) Band Neuts % (Manual) Lymphocytes % (Manual) Monocytes % (Manual) Abs Neuts (Manual) Differential Comment Platelet Estimate Platelet Morphology Fibrinogen 137 L POC Glucose Culture Results: Microbiology 07/28/18 11:20 Aerobic Blood Culture - Preliminary Blood - Peripheral No growth in 3 days Anaerobic Blood Culture - Preliminary No growth in 3 days 07/28/18 11:25 Aerobic Blood Culture - Preliminary Blood - Peripheral No growth in 3 days Anaerobic Blood Culture - Preliminary No growth in 3 days Medications: Active Medications Generic Name Dose Route Start Last Admin Trade Name Freq PRN Reason Stop Dose Admin Acetaminophen 650 mg 07/18/18 22:53 07/28/18 08:39 Tylenol Liq PO 650 mg Q6H PRN Administration temp > 100.4 Al Hydroxide/Mg Hydroxide 30 ml 06/30/18 11:38 07/07/18 15:45 Milk Of Magnesia Liq PO 30 ml Q12H PRN Administration Mild Constipation Albuterol 1 ampul 06/30/18 11:38 07/13/18 04:13 Duoneb Neb (Prn) NEB 1 ampul Q2HR NEB PRN Administration WHEEZING Fentanyl 1 patch 12/12/18 13:15 07/30/18 12:17 Duragesic 25 Mcg Patch.72hr T-DERMAL 1 patch Q72H ISIAH Administration Gabapentin 600 mg 07/18/18 18:00 07/31/18 09:03 Neurontin PO 600 mg QID ISIAH Administration Heparin Sodium (Porcine) 0 unit 07/11/18 14:35 07/29/18 11:50 Heparin Central Flush IV.FLUSH 1,000 unit DAILY PRN Administration SEE DOSE INSTRUCTIONS Hydrocortisone Acetate 20 mg 07/16/18 09:00 07/31/18 09:03 Cortef PO 20 mg TID ISIAH Administration Hydromorphone HCl 8 mg 07/25/18 15:46 07/31/18 09:17 Dilaudid PO 8 mg Q4H PRN Administration Acute Pain 1 to 10 Hydromorphone HCl 1 mg 07/27/18 16:44 07/31/18 07:25 Dilaudid Pf Inj IV.PUSH 1 mg Q4H PRN Administration BREAKTHROUGH PAIN Dextrose/Sodium Chloride 1,000 mls @ 75 mls/hr 07/05/18 16:28 07/31/18 06:30 D5w/1/2 Ns Inj IV.CONT Not Given .[id number] ISIAH Vancomycin HCl 1,500 mg/ 515 mls @ 250 mls/hr 07/21/18 12:00 07/31/18 02:32 Sodium Chloride IV.SIG Infused Q12H ISIAH Infusion Lactulose 30 ml 06/30/18 11:38 07/19/18 09:15 Lactulose Liq PO 30 ml DAILY PRN Administration SEVERE CONSITIPATION Levetiracetam 750 mg 07/03/18 21:00 07/31/18 09:03 Keppra PO 750 mg BID ISIAH Administration Levothyroxine Sodium 75 mcg 07/04/18 06:00 07/31/18 05:29 Synthroid PO 75 mcg DAILY@0600 ISIAH Administration Lorazepam 1 mg 07/28/18 00:01 07/31/18 09:09 Ativan PO 1 mg Q6H PRN Administration ANXIETY Pantoprazole Sodium 40 mg 07/07/18 09:00 07/31/18 09:03 Protonix PO 40 mg DAILY ISIAH Administration Patch Removal 1 each 07/03/18 13:00 07/30/18 12:29 Remove Old Patch T-DERMAL 1 each Q72H ISIAH Administration Patch Removal 1 each 07/03/18 13:00 07/30/18 12:29 Remove Old Patch T-DERMAL Not Given Q72H ISIAH Quetiapine Fumarate 400 mg 07/03/18 21:00 07/03/18 21:19 Seroquel PO Not Given BID ISIAH Sodium Chloride 2 ml 06/30/18 09:58 07/30/18 19:55 Ns Flush IV.FLUSH 2 ml PRN PRN Administration FLUSH AFTER USING IV ACCESS Tizanidine HCl 4 mg 07/23/18 01:00 07/31/18 09:09 Zanaflex PO 4 mg Q6H PRN Administration MUSCLE SPASM Trazodone HCl 50 mg 07/27/18 21:00 07/30/18 20:07 Desyrel PO 50 mg HS ISIAH Administration Objective Remarks: GENERAL: Chronically ill-appearing young male patient, in no acute distress. SKIN: Warm and dry. HEAD: Normocephalic. EYES: No scleral icterus. No injection or drainage. NECK: Supple, trachea midline. Vas-Cath to right neck, drsg dry, no erythema or drainage. Collection bag to left neck. CARDIOVASCULAR: Normal rate and rhythm. RESPIRATORY: Posterior breath sounds distant, clear, equal bilaterally. Nonlabored. GASTROINTESTINAL: Abdomen non-tender, nondistended. EXTREMITIES: No cyanosis, or edema. MUSCULOSKELETAL: Decreased muscle tone. NEUROLOGICAL: No obvious focal deficit. Awake, alert, and oriented x3. PSYCHIATRIC: Appropriate mood and affect; insight and judgment normal. 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 Oncology consulted for further recommendations. 1. Guillan [place] syndrome syndrome: followed by neurology. Plasmapheresis EOD x's 7 treatments. Patient scheduled for his seventh and final plasmapheresis today. Will await further recommendations from neurology. 2. Neutropenia resolved after 1 dose of neupogen. WBC trending down to 1.7, ANC 1.1 today. Pancytopenia coincides with plasmapheresis. 3. Bacteremia, infectious disease following for positive blood cultures on . Repeat blood cultures have shown no growth times 3 days. Continue antibiotics per infectious disease. 4. Transfuse cryoprecipitate after plasmapheresis today. Repeat fibrinogen level in the a.m. 5. Repeat immunoglobulin panel showed IgG 367 and IgA 71 IgM 55. 6. Pain management per attending. - Attending Statement Pt seen in room. Walking about in the room, changing his ostomy bag. No complaints; concerned about slow repsonse to plasmaphereisis after resumption of tx but aware that he has had only 2 tx after resumption. No evidence of infection. WBC counts decreasing again with resumption of plasmapheresis. Low Immuneglobulin levels noted. Will order IV Ig. Will f/u.
[2018-07-31] MEDS ORDERED: Pharmacy Ordered Lab Info OTHER ONE (11:45)
--- NOTE | 2018-07-31 11:49 | P.PNIM ---
Subjective Interval history: Patient ambulating in his room. Says he has pain all over his body. He is requesting more pain medications. He does not have any other complaints. Physical Exam Vital signs: Vital Signs 07/30/18 12:00 07/30/18 16:00 07/30/18 20:00 Temperature 97.9 F 97.9 F 97.7 F Pulse Rate 83 60 87 Respiratory Rate 18 18 18 Blood Pressure 135/82 145/92 H 143/71 H Pulse Oximetry 100 97 98 07/31/18 00:00 07/31/18 04:00 07/31/18 08:00 Temperature 97.9 F 97.9 F 98.9 F Pulse Rate 69 90 139 H Respiratory Rate 18 17 20 Blood Pressure 129/66 164/82 H 157/84 H Pulse Oximetry 99 98 100 Intake & Output 07/30/18 07/31/18 07/31/18 18:59 06:59 18:59 Intake Total 1060 / 1060 1215 / 1215 Balance 1060 / 1060 1215 / 1215 Weight 72.9 kg Intake: IV 830 / 830 1215 / 1215 D5W/1/2 NS Inj 1,000 ML @ 75 300 / 300 700 / 700 mls/hr IV.CONT .[id number] [facility] Rx# :[id number] NS Inj 250 ML @ 15 mls/hr IV. 15 / 15 SIG ONCE [facility] Rx#:[id number] Vancomycin Inj 1,500 MG In NS 515 / 515 515 / 515 Inj 500 ML @ 250 mls/hr IV.SIG Q12H [facility] Rx#:[id number] Oral 0 / 0 Intake (Blood Product) Amt 230 / 230 Pre-Pooled Cryo Thawed 10units 230 / 230 Unit [id number] Other: # Voids 5 0 Date of Last Bowel Movement 07/25/18 07/25/18 07/25/18 # Bowel Movements 0 Narrative: General patient sitting upright in bed, more awake and alert than yesterday. Complains of generalized pain. HEENT extraocular movements are intact, Vas-Cath on the right. Cardiovascular S1-S2 audible, RRR, Respiratory clear to auscultation bilaterally Abdomen soft, nontender, nondistended, normal bowel sounds, G-tube in place Extremities no edema 2+ distal pulses in bilateral upper and lower extremities Neuro patient can move all 4 extremities. The patient does complain of weakness of bilateral lower extremities and slight decrease in sensation in both of his lower extremities. Results - Labs CBC & Chem 7: 07/31/18 04:15 07/30/18 04:30 Laboratory Results - last 24 hr 07/30/18 07/30/18 07/31/18 12:34 17:49 04:15 WBC 1.7 L D RBC 2.41 L Hgb 7.9 L Hct 23.2 L MCV 96.4 MCH 32.7 MCHC 33.9 RDW 16.5 Plt Count 82 L MPV 8.9 Prelim Diff (Auto) Slide review pending Neut % (Auto) 62.2 Lymph % (Auto) 21.9 Andrew % (Auto) 13.9 H Eos % (Auto) 1.3 Baso % (Auto) 0.7 Neut # (Auto) 1.1 L Lymph # (Auto) 0.4 L Andrew # (Auto) 0.2 Eos # (Auto) 0.0 Baso # (Auto) 0.0 WBC Differential Manual diff final Seg Neuts % (Manual) 68 Band Neuts % (Manual) 1 Lymphocytes % (Manual) 23 Monocytes % (Manual) 8 Abs Neuts (Manual) 1.2 L Differential Comment . Platelet Estimate Low L Platelet Morphology Normal Fibrinogen POC Glucose 102 115 H 07/31/18 04:15 WBC RBC Hgb Hct MCV MCH MCHC RDW Plt Count MPV Prelim Diff (Auto) Neut % (Auto) Lymph % (Auto) Andrew % (Auto) Eos % (Auto) Baso % (Auto) Neut # (Auto) Lymph # (Auto) Andrew # (Auto) Eos # (Auto) Baso # (Auto) WBC Differential Seg Neuts % (Manual) Band Neuts % (Manual) Lymphocytes % (Manual) Monocytes % (Manual) Abs Neuts (Manual) Differential Comment Platelet Estimate Platelet Morphology Fibrinogen 137 L POC Glucose Microbiology 07/28/18 11:20 Blood - Peripheral Aerobic Blood Culture - Preliminary No growth in 3 days 07/28/18 11:20 Blood - Peripheral Anaerobic Blood Culture - Preliminary No growth in 3 days 07/28/18 11:25 Blood - Peripheral Aerobic Blood Culture - Preliminary No growth in 3 days 07/28/18 11:25 Blood - Peripheral Anaerobic Blood Culture - Preliminary No growth in 3 days - Procedures 07/08 lumbar puncture 07/11 Vas-cath placement Assessment and Plan - Assessment (1) Neutropenic precautions Status: Acute (2) Neutropenic fever Code(s): D70.9 - Neutropenia, unspecified; R50.81 - Fever presenting with conditions classified elsewhere Status: Acute (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 During that admission patient was found to have bacteremia with neutropenic fever. His Vas-Cath was removed. New Vas-Cath placed on 07/25/18. Patient is in the hospital receiving plasmapheresis. 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 Patient has received 6 of 7 treatments. Scheduled for plasmapheresis #7 today. Plan to transfuse cryoprecipitate after plasma exchange. 2. Neutropenia One febrile episode during the hospitalization. The patient has been afebrile for the past few days. WBC ct 1.7 today. Oncology following the patient. As per documentation the patient had a prior bone marrow biopsy from [facility] which was nondiagnostic Neupogen started by hematology on 07/28 HIV screen negative 3. Bacteremia Afebrile over the past couple of days. Cultures from 07/28 are negative MRSA and enterococcus Continue vancomycin as per infectious disease recommendations 4. Chronic pain Patient is a history of drug use, high tolerance. Currently tachycardic, patient complaining of pain. Continue p.o. Dilaudid, IV pain meds for breakthrough pain. Giving a dose now, discussed with nurse, tachycardia possibly due to current complaints of pain. 5. Thrombocytopenia Likely secondary to hepatitis C. No current signs of bleeding. Hematology following the patient. 6. Adrenal insufficiency Blood sugars are stable. Pressure stable. Continue p.o. 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 Continue testosterone injections outpatient. 7. 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 Rudi Medina [phone]/ Soniya BREAUX [phone]). Previous J-tube placement. Hepatitis profile: + Hep C Ig ab US abdomen: Hepatosplenomegaly On Protonix 40 mg p.o. for GI prophylaxis Continue tube feeds via J-tube change to Suplena with goal rate 70ml/hr Patient cut his J-tube apparently accidentally, replaced. SCDs for DVT prophylaxis 9. History of bradycardia Patient with Medtronic pacer 10. Cut PEG tube The patient originally had PEG tube placed by thoracic surgeon, patient accidentally cut the tube on 07/26/2018. Interventional radiology was consulted by GI and PEG tube was replaced. Continue feeds through the PEG tube. 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 Otherwise patient to be discharged to SNF/rehab once secured after plasmapharesis complete and cleared by ID.
[2018-07-31] MEDS ORDERED: Sodium Chlor 0.9% Inj 250 ML IV.SIG SCH (12:00)
[2018-07-31] MEDS: Famotidine PF Inj 20 MG/2 ML Vial IV.PUSH SCH ×2 (12:29→12:30)
[2018-07-31] MEDS: traZODone 50 MG Tablet PO SCH (20:55)
[2018-08-01] MEDS: HYDROmorphone PF Inj 0.5 MG/0.5 ML Syringe IV.PUSH PRN ×5 (02:04→23:57)
[2018-08-01] MEDS: LORazepam 1 MG Tablet PO PRN ×4 (03:05→21:39)
[2018-08-01] MEDS: Dextrose 5%/NaCl 0.45% Inj 1,000 ML IV.CONT SCH ×2 (05:30→08:05)
[2018-08-01] MEDS: Levothyroxine 75 MCG Tablet PO SCH (06:47)
[2018-08-01 07:06] LABS: Baso % (Auto) 0.8 % (0.0-2.0); Eos % (Auto) 1.4 % (0.0-4.0); Hematocrit 25.4 % (39.0-51.0); Hemoglobin 8.5 gm/dL (13.0-17.0); Lymph # (Auto) 0.5 th/mm3 (1.0-4.8); Lymph % (Auto) 24.1 % (9.0-44.0); Mean Corpuscular HGB Conc 33.4 % (32.0-36.0); Mean Corpuscular Hemoglobin 32.3 pg (27.0-34.0); Mean Corpuscular Volume 96.8 fL (80.0-100.0); Mean Platelet Volume 9.3 fL (7.0-11.0); Mono # (Auto) 0.3 th/mm3 (0.0-0.9); Neut # (Auto) 1.3 th/mm3 (1.8-7.7); Neut % (Auto) 61.7 % (16.0-70.0); Platelet Count 79 th/mm3 (150-450); Red Blood Count 2.62 mil/mm3 (4.50-5.90); Red Cell Distribution Width 16.8 % (11.6-17.2); White Blood Count 2.2 th/mm3 (4.0-11.0)
[2018-08-01 07:36] LABS: Anion Gap 6 meq/L (5-15); Blood Urea Nitrogen 3 mg/dL (7-18); Calcium 7.8 mg/dL (8.5-10.1); Carbon Dioxide 29.7 meq/L (21.0-32.0); Chloride 108 meq/L (98-107); Glomerular Filtration Rate Greater Than 89 mL/min (>89); Glucose,Random 106 mg/dL (74-106); Magnesium 1.6 mg/dL (1.5-2.5); Sodium 144 meq/L (136-145)
[2018-08-01 07:46] LABS: Potassium 2.5 meq/L (3.5-5.1)
[2018-08-01] MEDS: levETIRAcetam 250 MG Tablet PO SCH ×2 (08:02→20:00)
[2018-08-01] MEDS: Gabapentin 300 MG Capsule PO SCH ×4 (08:04→20:01)
[2018-08-01] MEDS: Hydrocortisone 10 MG Tablet PO SCH ×3 (08:04→17:26)
[2018-08-01 08:25] LABS: Ovalocytes 1+; Platelet Morphology Normal (Normal)
--- NOTE | 2018-08-01 09:43 | P.PNIM ---
Subjective Interval history: Patient complains of generalized pain. Says he has been on chronic pain meds since 2005 and needs them. No other complaints. Physical Exam Vital signs: Vital Signs 07/31/18 12:00 07/31/18 16:00 07/31/18 16:46 Temperature 98.5 F 96.5 F L Pulse Rate 110 H 107 H 67 Respiratory Rate 18 18 Blood Pressure 144/83 H 108/60 Pulse Oximetry 98 95 07/31/18 19:41 07/31/18 20:00 07/31/18 21:20 Temperature 97.8 F Pulse Rate 113 H 81 Respiratory Rate 16 16 Blood Pressure 131/69 Pulse Oximetry 08/01/18 00:00 08/01/18 03:55 08/01/18 04:00 Temperature 98.2 F 98.8 F Pulse Rate 64 64 74 Respiratory Rate 17 16 Blood Pressure 145/72 H 128/77 Pulse Oximetry 97 99 08/01/18 06:48 Temperature Pulse Rate 59 L Respiratory Rate Blood Pressure Pulse Oximetry Intake & Output 07/31/18 08/01/18 08/01/18 18:59 06:59 18:59 Intake Total 2279 / 2279 1109.5 / 1109.5 Output Total 1100 / 1100 0 / 0 Balance 1179 / 1179 1109.5 / 1109.5 Weight 73.7 kg Intake: IV 615 / 615 869.5 / 869.5 D5W/1/2 NS Inj 1,000 ML @ 75 300 / 300 607 / 607 mls/hr IV.CONT .[id number] [facility] Rx# :[id number] NS Inj 250 ML @ 15 mls/hr IV. 15 / 15 SIG ONCE [facility] Rx#:[id number] Vancomycin Inj 1,250 MG In NS 262.5 / 262.5 Inj 250 ML @ 250 mls/hr IV.SIG Q12H [facility] Rx#:[id number] Vancomycin Inj 1,500 MG In NS 300 / 300 Inj 500 ML @ 250 mls/hr IV.SIG Q12H [facility] Rx#:[id number] Oral 1440 / 1440 240 / 240 Intake (Blood Product) Amt 224 / 224 Pre-Pooled Cryo Thawed 10units 224 / 224 Unit [id number] Output: Urine 1100 / 1100 Urine/Stool Mix 0 / 0 Other: # Voids 5 2 Date of Last Bowel Movement 07/25/18 # Bowel Movements 1 Narrative: General patient sitting upright in bed, awake and alert. HEENT extraocular movements are intact, Vas-Cath on the right. Cardiovascular S1-S2 audible, RRR, Respiratory clear to auscultation bilaterally Abdomen soft, nontender, nondistended, normal bowel sounds, G-tube in place Extremities no edema 2+ distal pulses in bilateral upper and lower extremities Neuro patient can move all 4 extremities. The patient does complain of weakness of bilateral lower extremities and slight decrease in sensation in both of his lower extremities. Results - Labs CBC & Chem 7: 08/01/18 06:00 08/01/18 06:00 Laboratory Results - last 24 hr 07/31/18 07/31/18 07/31/18 11:46 11:57 14:25 WBC RBC Hgb Hct MCV MCH MCHC RDW Plt Count MPV Prelim Diff (Auto) Neut % (Auto) Lymph % (Auto) Collier % (Auto) Eos % (Auto) Baso % (Auto) Neut # (Auto) Lymph # (Auto) Collier # (Auto) Eos # (Auto) Baso # (Auto) WBC Differential Diff Scan Differential Comment Platelet Estimate Platelet Morphology Ovalocytes Fibrinogen Sodium Potassium Chloride Carbon Dioxide Anion Gap BUN Creatinine Estimated GFR POC Glucose 188 H Random Glucose Calcium Magnesium Vancomycin Trough 21.3 H Blood Bank Comment 07/31/18 07/31/18 08/01/18 17:38 23:59 05:42 WBC RBC Hgb Hct MCV MCH MCHC RDW Plt Count MPV Prelim Diff (Auto) Neut % (Auto) Lymph % (Auto) Collier % (Auto) Eos % (Auto) Baso % (Auto) Neut # (Auto) Lymph # (Auto) Collier # (Auto) Eos # (Auto) Baso # (Auto) WBC Differential Diff Scan Differential Comment Platelet Estimate Platelet Morphology Ovalocytes Fibrinogen Sodium Potassium Chloride Carbon Dioxide Anion Gap BUN Creatinine Estimated GFR POC Glucose 107 99 103 Random Glucose Calcium Magnesium Vancomycin Trough Blood Bank Comment 08/01/18 08/01/18 08/01/18 06:00 06:00 06:00 WBC 2.2 L RBC 2.62 L Hgb 8.5 L Hct 25.4 L MCV 96.8 MCH 32.3 MCHC 33.4 RDW 16.8 Plt Count 79 L MPV 9.3 Prelim Diff (Auto) Slide review pending Neut % (Auto) 61.7 Lymph % (Auto) 24.1 Collier % (Auto) 12.0 H Eos % (Auto) 1.4 Baso % (Auto) 0.8 Neut # (Auto) 1.3 L Lymph # (Auto) 0.5 L Collier # (Auto) 0.3 Eos # (Auto) 0.0 Baso # (Auto) 0.0 WBC Differential . Diff Scan Auto diff confirmed Differential Comment . Platelet Estimate Low L Platelet Morphology Normal Ovalocytes 1+ H Fibrinogen 131 L Sodium 144 Potassium 2.5 L* Chloride 108 H Carbon Dioxide 29.7 Anion Gap 6 BUN 3 L Creatinine 0.53 L Estimated GFR Greater than 89 POC Glucose Random Glucose 106 Calcium 7.8 L Magnesium 1.6 Vancomycin Trough Blood Bank Comment Microbiology 07/28/18 11:20 Blood - Peripheral Aerobic Blood Culture - Preliminary No growth in 3 days 07/28/18 11:20 Blood - Peripheral Anaerobic Blood Culture - Preliminary No growth in 3 days 07/28/18 11:25 Blood - Peripheral Aerobic Blood Culture - Preliminary No growth in 3 days 07/28/18 11:25 Blood - Peripheral Anaerobic Blood Culture - Preliminary No growth in 3 days - Procedures 07/08 lumbar puncture 07/11 Vas-cath placement Assessment and Plan - Assessment (1) Neutropenic precautions Status: Acute (2) Neutropenic fever Code(s): D70.9 - Neutropenia, unspecified; R50.81 - Fever presenting with conditions classified elsewhere Status: Acute (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 During that admission patient was found to have bacteremia with neutropenic fever. His Vas-Cath was removed. New Vas-Cath placed on 07/25/18. Patient is in the hospital receiving plasmapheresis. 08/01/18 Patient evaluated today. Complains of generalized pain and is requesting "morphine pump so he doesn't have to ask the nurses." Will continue current regimen for pain meds, PO dilaudid, and IV for breakthrough pain. We will await recommendations from Neurology as patient has now finished treatment 01/26 of plasmapheresis for Guillan [place]. ID following the patient, on Vancomycin for MRSA bacteremia, Repeat cxs are negative from 07/28/18. Will await their recs. Hem/Onc also following the patient, pt is pancytopenic. Plasmapheresis likely contributing to the pancytopenia. Will follow up with their recs today. Once patient is cleared he will be discharged to a rehab facility most likely. Patient also has severe hypokalemia today. Given potassium as well as magnesium. Will follow up am labs. 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 Patient has received 6 of 7 treatments. Scheduled for plasmapheresis #7 today. Plan to transfuse cryoprecipitate after plasma exchange. 2. Neutropenia One febrile episode during the hospitalization. The patient has been afebrile for the past few days. WBC ct 1.7 today. Oncology following the patient. As per documentation the patient had a prior bone marrow biopsy from [facility] which was nondiagnostic Neupogen started by hematology on 07/28 HIV screen negative 3. MRSA Bacteremia Afebrile Cultures from 07/28 are negative MRSA and enterococcus Continue vancomycin as per infectious disease recommendations. I will follow up with them today for their recommendations. 4. Chronic pain Patient is a history of drug use, high tolerance. Currently tachycardic, patient complaining of pain. Continue p.o. Dilaudid, IV pain meds for breakthrough pain. Giving a dose now, discussed with nurse, tachycardia possibly due to current complaints of pain. 5. Thrombocytopenia Likely secondary to hepatitis C. No current signs of bleeding. Hematology following the patient. 6. Adrenal insufficiency Blood sugars are stable. Pressure stable. Continue p.o. 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 Continue testosterone injections outpatient. 7. 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 Rudi Medina [phone]/ Soniya BREAUX [phone]). Previous J-tube placement. Hepatitis profile: + Hep C Ig ab US abdomen: Hepatosplenomegaly On Protonix 40 mg p.o. for GI prophylaxis Continue tube feeds via J-tube change to Suplena with goal rate 70ml/hr Patient cut his J-tube apparently accidentally, replaced. SCDs for DVT prophylaxis 9. History of bradycardia Patient with Medtronic pacer 10. Cut PEG tube The patient originally had PEG tube placed by thoracic surgeon, patient accidentally cut the tube on 07/26/2018. Interventional radiology was consulted by GI and PEG tube was replaced. Continue feeds through the PEG tube. 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 Otherwise patient to be discharged to SNF/rehab once secured after plasmapharesis complete and cleared by ID.
[2018-08-01] MEDS ORDERED: Magnesium Sulfate Inj 2 GM in Sodium Chlor 0.9% Inj 96 ML IV.SIG ONE (11:00)
[2018-08-01] MEDS: Vancomycin Inj 1,250 MG in Sodium Chlor 0.9% Inj 250 ML IV.SIG SCH ×3 (13:49)
--- NOTE | 2018-08-01 16:18 | P.PNONC ---
Subjective Interval history: T-max 100.9 F. Patient is sitting in chair, his mother is at his side. He reports no change in his pain, reports he feels that his right foot is improved after plasmapheresis. He states "I need more plasma exchanges". I have discussed at great length, that continued plasmapheresis is pending the neurologist recommendations. We have discussed that this is not an indefinite treatment and typically does not continue beyond 7-10 treatments. He has been referred to his neurologist to discuss his questions in regards to further treatment for Kell Julio. 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 This will continue to be monitored. He denies any bleeding. He is tearful at times during our conversation and states that he is scared. He states "they want to send me to rehab". I have encouraged him that once medically stable, rehab would likely be the next best step for him. Objective Vital Signs/Intake & Output: Vital Signs 07/31/18 16:46 07/31/18 19:41 07/31/18 20:00 Temperature 96.5 F L 97.8 F Pulse Rate 67 113 H 81 Respiratory Rate 18 16 Blood Pressure 108/60 131/69 Pulse Oximetry 95 07/31/18 21:20 08/01/18 00:00 08/01/18 03:55 Temperature 98.2 F Pulse Rate 64 64 Respiratory Rate 16 17 Blood Pressure 145/72 H Pulse Oximetry 97 08/01/18 04:00 08/01/18 06:48 08/01/18 08:00 Temperature 98.8 F 100.9 F H Pulse Rate 74 59 L 118 H Respiratory Rate 16 18 Blood Pressure 128/77 153/75 H Pulse Oximetry 99 99 08/01/18 12:00 08/01/18 16:00 Temperature 98.6 F Pulse Rate 86 Respiratory Rate 20 20 Blood Pressure 131/64 Pulse Oximetry 96 Intake & Output 07/31/18 08/01/18 08/01/18 18:59 06:59 18:59 Intake Total 2279 / 2279 1109.5 / 1109.5 762.5 / 762.5 Output Total 1100 / 1100 0 / 0 Balance 1179 / 1179 1109.5 / 1109.5 762.5 / 762.5 Weight 73.7 kg Intake: IV 615 / 615 869.5 / 869.5 762.5 / 762.5 D5W/1/2 NS Inj 1,000 ML @ 75 300 / 300 607 / 607 400 / 400 mls/hr IV.CONT .[id number] [facility] Rx# :[id number] Magnesium Sulfate Inj 2 GM In 100 / 100 NS Inj 96 ML @ 50 mls/hr IV.SIG ONCE ONE Rx#:[id number] NS Inj 250 ML @ 15 mls/hr IV. 15 / 15 SIG ONCE [facility] Rx#:[id number] Vancomycin Inj 1,250 MG In NS 262.5 / 262.5 262.5 / 262.5 Inj 250 ML @ 250 mls/hr IV.SIG Q12H [facility] Rx#:[id number] Vancomycin Inj 1,500 MG In NS 300 / 300 Inj 500 ML @ 250 mls/hr IV.SIG Q12H [facility] Rx#:[id number] Oral 1440 / 1440 240 / 240 Intake (Blood Product) Amt 224 / 224 Pre-Pooled Cryo Thawed 10units 224 / 224 Unit [id number] Output: Urine 1100 / 1100 Urine/Stool Mix 0 / 0 Other: # Voids 5 2 Date of Last Bowel Movement 07/25/18 07/25/18 # Bowel Movements 1 Result Diagrams: 08/05/18 11:12 08/06/18 08:45 Laboratory Results: Laboratory Results - last 24 hr 07/31/18 07/31/18 07/31/18 11:46 17:38 23:59 WBC RBC Hgb Hct MCV MCH MCHC RDW Plt Count MPV Prelim Diff (Auto) Neut % (Auto) Lymph % (Auto) [place] % (Auto) Eos % (Auto) Baso % (Auto) Neut # (Auto) Lymph # (Auto) [place] # (Auto) Eos # (Auto) Baso # (Auto) WBC Differential Diff Scan Differential Comment Platelet Estimate Platelet Morphology Ovalocytes Fibrinogen Sodium Potassium Chloride Carbon Dioxide Anion Gap BUN Creatinine Estimated GFR POC Glucose 107 99 Random Glucose Calcium Magnesium Blood Bank Comment 08/01/18 08/01/18 08/01/18 05:42 06:00 06:00 WBC 2.2 L RBC 2.62 L Hgb 8.5 L Hct 25.4 L MCV 96.8 MCH 32.3 MCHC 33.4 RDW 16.8 Plt Count 79 L MPV 9.3 Prelim Diff (Auto) Slide review pending Neut % (Auto) 61.7 Lymph % (Auto) 24.1 [place] % (Auto) 12.0 H Eos % (Auto) 1.4 Baso % (Auto) 0.8 Neut # (Auto) 1.3 L Lymph # (Auto) 0.5 L [place] # (Auto) 0.3 Eos # (Auto) 0.0 Baso # (Auto) 0.0 WBC Differential . Diff Scan Auto diff confirmed Differential Comment . Platelet Estimate Low L Platelet Morphology Normal Ovalocytes 1+ H Fibrinogen Sodium 144 Potassium 2.5 L* Chloride 108 H Carbon Dioxide 29.7 Anion Gap 6 BUN 3 L Creatinine 0.53 L Estimated GFR Greater than 89 POC Glucose 103 Random Glucose 106 Calcium 7.8 L Magnesium 1.6 Blood Bank Comment 08/01/18 08/01/18 06:00 13:18 WBC RBC Hgb Hct MCV MCH MCHC RDW Plt Count MPV Prelim Diff (Auto) Neut % (Auto) Lymph % (Auto) [place] % (Auto) Eos % (Auto) Baso % (Auto) Neut # (Auto) Lymph # (Auto) [place] # (Auto) Eos # (Auto) Baso # (Auto) WBC Differential Diff Scan Differential Comment Platelet Estimate Platelet Morphology Ovalocytes Fibrinogen 131 L Sodium Potassium Chloride Carbon Dioxide Anion Gap BUN Creatinine Estimated GFR POC Glucose 88 Random Glucose Calcium Magnesium Blood Bank Comment Culture Results: Microbiology 07/28/18 11:20 Aerobic Blood Culture - Preliminary Blood - Peripheral No growth in 4 days Anaerobic Blood Culture - Preliminary No growth in 4 days 07/28/18 11:25 Aerobic Blood Culture - Preliminary Blood - Peripheral No growth in 4 days Anaerobic Blood Culture - Preliminary No growth in 4 days Medications: Active Medications Generic Name Dose Route Start Last Admin Trade Name Freq PRN Reason Stop Dose Admin Acetaminophen 650 mg 07/18/18 22:53 08/01/18 08:11 Tylenol Liq PO 650 mg Q6H PRN Administration temp > 100.4 Al Hydroxide/Mg Hydroxide 30 ml 06/30/18 11:38 07/07/18 15:45 Milk Of Magnesia Liq PO 30 ml Q12H PRN Administration Mild Constipation Albuterol 1 ampul 06/30/18 11:38 07/13/18 04:13 Duoneb Neb (Prn) NEB 1 ampul Q2HR NEB PRN Administration WHEEZING Fentanyl 1 patch 07/03/18 13:15 07/30/18 12:17 Duragesic 25 Mcg Patch.72hr T-DERMAL 1 patch Q72H ISIAH Administration Gabapentin 600 mg 07/18/18 18:00 08/01/18 12:00 Neurontin PO 600 mg QID ISIAH Administration Heparin Sodium (Porcine) 0 unit 07/11/18 14:35 07/29/18 11:50 Heparin Central Flush IV.FLUSH 1,000 unit DAILY PRN Administration SEE DOSE INSTRUCTIONS Hydrocortisone Acetate 20 mg 07/16/18 09:00 08/01/18 12:00 Cortef PO 20 mg TID ISIAH Administration Hydromorphone HCl 8 mg 07/25/18 15:46 08/01/18 13:49 Dilaudid PO 8 mg Q4H PRN Administration Acute Pain 1 to 10 Hydromorphone HCl 1 mg 07/27/18 16:44 08/01/18 11:58 Dilaudid Pf Inj IV.PUSH 1 mg Q4H PRN Administration BREAKTHROUGH PAIN Vancomycin HCl 1,250 mg/ 262.5 mls @ 250 mls/hr 08/01/18 01:00 08/01/18 15:13 Sodium Chloride IV.SIG Infused Q12H ISIAH Infusion Lactulose 30 ml 06/30/18 11:38 07/19/18 09:15 Lactulose Liq PO 30 ml DAILY PRN Administration SEVERE CONSITIPATION Levetiracetam 750 mg 07/03/18 21:00 08/01/18 08:02 Keppra PO 750 mg BID ISIAH Administration Levothyroxine Sodium 75 mcg 07/04/18 06:00 08/01/18 06:47 Synthroid PO 75 mcg DAILY@0600 ISIAH Administration Lorazepam 1 mg 07/28/18 00:01 08/01/18 15:04 Ativan PO 1 mg Q6H PRN Administration ANXIETY Pantoprazole Sodium 40 mg 07/07/18 09:00 08/01/18 08:04 Protonix PO 40 mg DAILY ISIAH Administration Patch Removal 1 each 07/03/18 13:00 07/30/18 12:29 Remove Old Patch T-DERMAL 1 each Q72H ISIAH Administration Patch Removal 1 each 07/03/18 13:00 07/30/18 12:29 Remove Old Patch T-DERMAL Not Given Q72H ISIAH Quetiapine Fumarate 400 mg 07/03/18 21:00 07/03/18 21:19 Seroquel PO Not Given BID ISIAH Sodium Chloride 2 ml 06/30/18 09:58 07/30/18 19:55 Ns Flush IV.FLUSH 2 ml PRN PRN Administration FLUSH AFTER USING IV ACCESS Tizanidine HCl 4 mg 07/23/18 01:00 08/01/18 15:02 Zanaflex PO 4 mg Q6H PRN Administration MUSCLE SPASM Trazodone HCl 50 mg 07/27/18 21:00 07/31/18 20:55 Desyrel PO 50 mg HS ISIAH Administration Objective Remarks: GENERAL: Chronically ill-appearing young male patient, in no acute distress. SKIN: Warm and dry. HEAD: Normocephalic. EYES: No scleral icterus. No injection or drainage. NECK: Supple, trachea midline. Vas-Cath to right neck, drsg dry/intact. Collection bag to left neck. CARDIOVASCULAR: Normal rate and rhythm. RESPIRATORY: Posterior breath sounds clear, equal bilaterally. Nonlabored. On room air. GASTROINTESTINAL: Abdomen non-tender, nondistended. +J-tube. EXTREMITIES: No cyanosis, or edema. MUSCULOSKELETAL: Decreased muscle tone. NEUROLOGICAL: No obvious focal deficit. Awake, alert, and oriented x3. PSYCHIATRIC: Appropriate mood and affect; insight and judgment normal. Tearful at times. 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 Oncology consulted for further recommendations. 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 Received 01/26 plasmapheresis. Will await further recommendations from neurology. 2. Neutropenia resolved after 1 dose of Neupogen, coincides with plasmapheresis. He is currently pancytopenic, however improving. WBC 2.2, hemoglobin 8.5, platelets 79, neutrophils 1.3. 3. Bacteremia, infectious disease following for positive blood cultures on . Repeat blood cultures have shown no growth times 4 days. Continue antibiotics per infectious disease. T-max today 100.9 F. 4. Status post cryoprecipitate transfusion yesterday after plasmapheresis. Fibrinogen 131 today. 5. Repeat immunoglobulin panel showed IgG 367 and IgA 71 IgM 55. 6. Pain management per attending. - Attending Statement Pt seen in room. "Weakness improving". Wants to continue plasmapheresis. Received 7th pheresis tx yesterday. Will continue pheresis if Dr. Jones recommends more tx. D/w pt. IVIg as ordered. D/w pharmacy. He will receive 30gm IVIg today, 30 gm tomorrow and 15 gm on 08/04/18. Check Fibrinogen in am and tx cryoppt. Will f/u.
[2018-08-01] MEDS: IVIG (Immune Globulin) Inj 30 GM in Syringe/Bag 1 EACH IV.SIG SCH (17:33)
[2018-08-01] MEDS: traZODone 50 MG Tablet PO SCH (20:00)
[2018-08-01 21:17] LABS: Baso % (Auto) 0.6 % (0.0-2.0); Eos % (Auto) 0.6 % (0.0-4.0); Hematocrit 28.9 % (39.0-51.0); Hemoglobin 9.6 gm/dL (13.0-17.0); Lymph # (Auto) 0.2 th/mm3 (1.0-4.8); Lymph % (Auto) 12.6 % (9.0-44.0); Mean Corpuscular HGB Conc 33.3 % (32.0-36.0); Mean Corpuscular Volume 96.2 fL (80.0-100.0); Mean Platelet Volume 8.7 fL (7.0-11.0); Mono # (Auto) 0.2 th/mm3 (0.0-0.9); Mono % (Auto) 9.9 % (0.0-8.0); Neut # (Auto) 1.4 th/mm3 (1.8-7.7); Neut % (Auto) 76.3 % (16.0-70.0); Platelet Count 93 th/mm3 (150-450); Red Cell Distribution Width 16.9 % (11.6-17.2); White Blood Count 1.8 th/mm3 (4.0-11.0)
--- NOTE | 2018-08-01 21:27 | P.PNNEU ---
Subjective Subjective Comments: pt reports improved strength in UE and LE. ABle to ambulate better Still with pain in LE , although gabapentin does help Active Medications: Active Medications Acetaminophen (Tylenol Liq) 650 mg PO Q6H PRN PRN Reason: temp > 100.4 Last Admin: 08/01/18 08:11 Dose: 650 mg Al Hydroxide/Mg Hydroxide (Milk Of Magnesia Liq) 30 ml PO Q12H PRN PRN Reason: Mild Constipation Last Admin: 07/07/18 15:45 Dose: 30 ml Albuterol (Duoneb Neb (Prn)) 1 ampul NEB Q2HR NEB PRN PRN Reason: WHEEZING Last Admin: 07/13/18 04:13 Dose: 1 ampul Bisacodyl (Dulcolax Supp) 10 mg RECTAL DAILY PRN PRN Reason: SEVERE CONSITIPATION Fentanyl (Duragesic 25 Mcg Patch.72hr) 1 patch T-DERMAL Q72H [facility] Last Admin: 07/30/18 12:17 Dose: 1 patch Heparin Sodium (Porcine) (Heparin Central Flush) 0 unit IV.FLUSH DAILY PRN PRN Reason: SEE DOSE INSTRUCTIONS Last Admin: 07/29/18 11:50 Dose: 1,000 unit Heparin Sodium (Porcine) (Heparin Inj) 1,000 units IV.FLUSH UNSCH PRN PRN Reason: FLUSH AFTER USING IV ACCESS Hydrocortisone Acetate (Cortef) 20 mg PO TID [facility] Last Admin: 08/01/18 17:26 Dose: 20 mg Hydromorphone HCl (Dilaudid) 8 mg PO Q4H PRN PRN Reason: Acute Pain 1 to 10 Last Admin: 08/01/18 17:29 Dose: 8 mg Hydromorphone HCl (Dilaudid Pf Inj) 1 mg IV.PUSH Q4H PRN PRN Reason: BREAKTHROUGH PAIN Last Admin: 08/01/18 19:52 Dose: 1 mg Vancomycin HCl 1,250 mg/ (Sodium Chloride) 262.5 mls @ 250 mls/hr IV.SIG Q12H [facility] Last Infusion: 08/01/18 15:13 Dose: Infused Immune Globulin 30 gm/ (Miscellaneous Medication) 300 mls @ 37.5 mls/hr IV.SIG Q24HR [facility] Stop: 08/02/18 23:59 Last Admin: 08/01/18 17:33 Dose: 37.5 mls/hr Immune Globulin 15 gm/ (Miscellaneous Medication) 150 mls @ 22.11 mls/hr IV.SIG TITRATE [facility]; Protocol Stop: 08/03/18 22:48 Lactulose (Lactulose Liq) 30 ml PO DAILY PRN PRN Reason: SEVERE CONSITIPATION Last Admin: 07/19/18 09:15 Dose: 30 ml Levetiracetam (Keppra) 750 mg PO BID [facility] Last Admin: 08/01/18 20:00 Dose: 750 mg Levothyroxine Sodium (Synthroid) 75 mcg PO DAILY@0600 [facility] Last Admin: 08/01/18 06:47 Dose: 75 mcg Lorazepam (Ativan) 1 mg PO Q6H PRN PRN Reason: ANXIETY Last Admin: 08/01/18 15:04 Dose: 1 mg Miscellaneous Information ([facility] Ordered Lab Info) 0 each OTHER ONCE ONE Stop: 08/02/18 12:46 Naloxone HCl (Narcan Inj) 0.4 mg IV.PUSH Q2M PRN PRN Reason: SEDATION Pantoprazole Sodium (Protonix) 40 mg PO DAILY [facility] Last Admin: 08/01/18 08:04 Dose: 40 mg Patch Removal (Remove Old Patch) 1 each T-DERMAL Q72H [facility] Last Admin: 07/30/18 12:29 Dose: 1 each Patch Removal (Remove Old Patch) 1 each T-DERMAL Q72H [facility] Last Admin: 07/30/18 12:29 Dose: Not Given Pharmacy Profile Note (Vancomycin Consult Pharmacy) 1 each OTHER UNSCH PRN PRN Reason: Pharmacy to dose Quetiapine Fumarate (Seroquel) 400 mg PO BID [facility] Last Admin: 07/03/18 21:19 Dose: Not Given Sennosides (Senokot) 17.2 mg PO Q12H PRN PRN Reason: Moderate Constipation Sodium Chloride (Ns Flush) 2 ml IV.FLUSH PRN PRN PRN Reason: FLUSH AFTER USING IV ACCESS Last Admin: 07/30/18 19:55 Dose: 2 ml Sodium Chloride (Ns Flush) 0 ml IV.FLUSH PRN PRN PRN Reason: SEE DOSE INSTRUCTIONS Sodium Chloride (Ns Flush) 10 ml IV.FLUSH UNSCH PRN PRN Reason: FLUSH AFTER USING IV ACCESS Tizanidine HCl (Zanaflex) 4 mg PO Q6H PRN PRN Reason: MUSCLE SPASM Last Admin: 08/01/18 15:02 Dose: 4 mg Trazodone HCl (Desyrel) 50 mg PO HS ISIAH Last Admin: 08/01/18 20:00 Dose: 50 mg Allergies/Adverse Reactions: Allergies Allergy/AdvReac Type Severity Reaction Status Date / Time codeine Allergy Severe Hives Verified 07/20/18 21:01 tramadol Allergy Severe seizure Verified 07/20/18 21:01 cyclobenzaprine Allergy Unknown Unresponsiv Verified 06/30/18 10:28 e fluvoxamine Allergy Unknown Unresponsiv Verified 06/30/18 10:28 e zolpidem Allergy Unknown Unconscious Verified 06/30/18 10:28 Beta-Blockers Allergy Anaphylaxis Verified 06/30/18 10:28 (Beta-Adrenergic Bloc MRI PRECAUTION AdvReac Severe NON REVO Uncoded 08/04/17 18:49 PACEMAKER Physical Exam Vital signs: Vital Signs 08/01/18 00:00 08/01/18 03:55 08/01/18 04:00 Temperature 98.2 F 98.8 F Pulse Rate 64 64 74 Respiratory Rate 17 16 Blood Pressure 145/72 H 128/77 Pulse Oximetry 97 99 08/01/18 06:48 08/01/18 08:00 08/01/18 12:00 Temperature 100.9 F H 98.6 F Pulse Rate 59 L 118 H 86 Respiratory Rate 18 20 Blood Pressure 153/75 H 131/64 Pulse Oximetry 99 96 08/01/18 16:00 08/01/18 17:33 08/01/18 20:04 Temperature 97.2 F L 98.5 F Pulse Rate 68 93 H 102 H Respiratory Rate 18 16 18 Blood Pressure 111/54 L 139/84 153/86 H Pulse Oximetry 95 99 Intake & Output 08/01/18 08/01/18 08/02/18 06:59 18:59 06:59 Intake Total 1109.5 / 1109.5 762.5 / 762.5 Output Total 0 / 0 500 / 500 Balance 1109.5 / 1109.5 262.5 / 262.5 Weight 73.7 kg Intake: IV 869.5 / 869.5 762.5 / 762.5 D5W/1/2 NS Inj 1,000 ML @ 75 607 / 607 400 / 400 mls/hr IV.CONT .[id number] [facility] Rx# :[id number] Magnesium Sulfate Inj 2 GM In 100 / 100 NS Inj 96 ML @ 50 mls/hr IV.SIG ONCE ONE Rx#:[id number] Vancomycin Inj 1,250 MG In NS 262.5 / 262.5 262.5 / 262.5 Inj 250 ML @ 250 mls/hr IV.SIG Q12H [facility] Rx#:[id number] Oral 240 / 240 Output: Urine 500 / 500 Urine/Stool Mix 0 / 0 Other: # Voids 2 Date of Last Bowel Movement 07/25/18 # Bowel Movements 0 - Routine Neurological Exam alert, speech normal CN intact MOTOR 5/5 BUE, 4+/5 BLE Objective Laboratory Results - last 24 hr 07/31/18 08/01/18 08/01/18 23:59 05:42 06:00 WBC RBC Hgb Hct MCV MCH MCHC RDW Plt Count MPV Prelim Diff (Auto) Neut % (Auto) Lymph % (Auto) [place] % (Auto) Eos % (Auto) Baso % (Auto) Neut # (Auto) Lymph # (Auto) [place] # (Auto) Eos # (Auto) Baso # (Auto) WBC Differential Diff Scan Differential Comment Platelet Estimate Platelet Morphology Ovalocytes APTT Fibrinogen Sodium 144 Potassium 2.5 L* Chloride 108 H Carbon Dioxide 29.7 Anion Gap 6 BUN 3 L Creatinine 0.53 L Estimated GFR Greater than 89 POC Glucose 99 103 Random Glucose 106 Calcium 7.8 L Magnesium 1.6 08/01/18 08/01/18 08/01/18 06:00 06:00 13:18 WBC 2.2 L RBC 2.62 L Hgb 8.5 L Hct 25.4 L MCV 96.8 MCH 32.3 MCHC 33.4 RDW 16.8 Plt Count 79 L MPV 9.3 Prelim Diff (Auto) Slide review pending Neut % (Auto) 61.7 Lymph % (Auto) 24.1 [place] % (Auto) 12.0 H Eos % (Auto) 1.4 Baso % (Auto) 0.8 Neut # (Auto) 1.3 L Lymph # (Auto) 0.5 L [place] # (Auto) 0.3 Eos # (Auto) 0.0 Baso # (Auto) 0.0 WBC Differential . Diff Scan Auto diff confirmed Differential Comment . Platelet Estimate Low L Platelet Morphology Normal Ovalocytes 1+ H APTT Fibrinogen 131 L Sodium Potassium Chloride Carbon Dioxide Anion Gap BUN Creatinine Estimated GFR POC Glucose 88 Random Glucose Calcium Magnesium 08/01/18 08/01/18 08/01/18 17:25 20:31 20:31 WBC 1.8 L RBC 3.00 L Hgb 9.6 L Hct 28.9 L MCV 96.2 MCH 32.0 MCHC 33.3 RDW 16.9 Plt Count 93 L MPV 8.7 Prelim Diff (Auto) Slide review pending Neut % (Auto) 76.3 H Lymph % (Auto) 12.6 [place] % (Auto) 9.9 H Eos % (Auto) 0.6 Baso % (Auto) 0.6 Neut # (Auto) 1.4 L Lymph # (Auto) 0.2 L [place] # (Auto) 0.2 Eos # (Auto) 0.0 Baso # (Auto) 0.0 WBC Differential Diff Scan Differential Comment . Platelet Estimate Platelet Morphology Ovalocytes APTT Cancelled Fibrinogen Sodium Potassium Chloride Carbon Dioxide Anion Gap BUN Creatinine Estimated GFR POC Glucose 117 H Random Glucose Calcium Magnesium Microbiology 07/28/18 11:20 Aerobic Blood Culture - Preliminary Blood - Peripheral No growth in 4 days Anaerobic Blood Culture - Preliminary No growth in 4 days 07/28/18 11:25 Aerobic Blood Culture - Preliminary Blood - Peripheral No growth in 4 days Anaerobic Blood Culture - Preliminary No growth in 4 days Review/Management - Diagnosis (1) Myelopathy Code(s): G95.9 - Disease of spinal cord, unspecified Status: Acute Current Visit: Yes - Review/Management Plan: Recommend stop plasmapheresis at this time. Increase gabapentin to 900 mg tid for neuropathic pain
[2018-08-01 21:47] LABS: Lymphocytes 13 % (9-44); Monocytes 9 % (0-8); Ovalocytes 1+; Platelet Morphology Normal (Normal)
[2018-08-01 21:48] LABS: Activated Partial Thrombo Time 35.7 sec (23.4-31.7); INR 1.2 Ratio; Prothrombin Time 11.8 sec (9.8-11.6)
[2018-08-02] MEDS: Vancomycin Inj 1,250 MG in Sodium Chlor 0.9% Inj 250 ML IV.SIG SCH ×2 (02:45→14:25)
[2018-08-02] MEDS: LORazepam 1 MG Tablet PO PRN ×3 (03:37→19:00)
[2018-08-02] MEDS: HYDROmorphone PF Inj 0.5 MG/0.5 ML Syringe IV.PUSH PRN ×5 (03:37→20:37)
[2018-08-02] MEDS: IVIG (Immune Globulin) Inj 30 GM in Syringe/Bag 1 EACH IV.SIG SCH ×2 (04:49→18:21)
[2018-08-02] MEDS: Levothyroxine 75 MCG Tablet PO SCH (06:05)
[2018-08-02] MEDS: Hydrocortisone 10 MG Tablet PO SCH ×3 (08:12→18:22)
[2018-08-02] MEDS: levETIRAcetam 250 MG Tablet PO SCH ×2 (08:12→20:36)
[2018-08-02] MEDS: Gabapentin 300 MG Capsule PO SCH ×3 (08:13→18:22)
[2018-08-02] MEDS ORDERED: Pharmacy Ordered Lab Info OTHER ONE (12:45)
[2018-08-02 13:42] LABS: Anion Gap 6 meq/L (5-15); Blood Urea Nitrogen 9 mg/dL (7-18); Calcium 8.1 mg/dL (8.5-10.1); Carbon Dioxide 28.1 meq/L (21.0-32.0); Chloride 104 meq/L (98-107); Glomerular Filtration Rate Greater Than 89 mL/min (>89); Glucose,Random 92 mg/dL (74-106); Sodium 138 meq/L (136-145); Vancomycin,Trough 12.9 mcg/mL (5.0-10.0)
[2018-08-02 13:48] LABS: Magnesium 2.1 mg/dL (1.5-2.5); Potassium 3.6 meq/L (3.5-5.1)
--- NOTE | 2018-08-02 14:17 | MB ---
cc: Driss Ibrahim MD DATE: 08/02/2018 SUBJECTIVE: The patient is seen in room 1407. He is in pain in the bed and is requesting pain medication. He has been told by Dr. Jones that we will not continue plasmapheresis anymore and he has no fevers or chills at this time. He is quite uncomfortable from his pain. No cough, chest pain or shortness of breath. No abdominal pain or distention. No frequency, urgency or hematuria. No fevers or night sweats. PHYSICAL EXAMINATION: Chronically ill-appearing, mild distress secondary to pain, requesting pain medication. Pallor present. The rest of the examination was not performed today. I reviewed his labs and treatment options with him. 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 Jones recommended cessation of plasmapheresis last night and hence will not continue the same. His blood counts have been decreasing with plasmapheresis and have been normalizing with cessation of plasmapheresis and hence will not need any specific therapy for his cytopenias at this time. His repeat serum fibrinogen yesterday was 157 and hence he does not need any cryoprecipitate anymore. Rest of management per IM and ID. Since plasmapheresis is not being continued, hematology will not continue to follow him up in the hospital, unless there is a specific question for hematology in which case we will be happy to see him in reconsultation. MD SEAN Kulkarni/sb , 01:58 PM , 02:05 PM AUTUMN
--- NOTE | 2018-08-02 16:16 | P.PNIM ---
Subjective Interval history: He says the lower exts weakness is improving after treatment. Still complains of general pain all over his body. Physical Exam Vital signs: Vital Signs 08/01/18 17:33 08/01/18 20:00 08/01/18 20:04 Temperature 98.5 F Pulse Rate 93 H 99 H 102 H Respiratory Rate 16 18 Blood Pressure 139/84 153/86 H Pulse Oximetry 99 08/02/18 00:00 08/02/18 04:00 08/02/18 04:49 Temperature 98.5 F Pulse Rate 87 113 H 105 H Respiratory Rate 17 18 18 Blood Pressure 132/66 153/81 H 153/70 H Pulse Oximetry 100 99 08/02/18 08:00 08/02/18 12:00 Temperature 102.9 F H 98.9 F Pulse Rate 119 H 70 Respiratory Rate 18 18 Blood Pressure 168/96 H 101/54 L Pulse Oximetry 100 98 Intake & Output 08/01/18 08/02/18 08/02/18 18:59 06:59 18:59 Intake Total 762.5 / 762.5 562.5 / 562.5 Output Total 500 / 500 Balance 262.5 / 262.5 562.5 / 562.5 Intake: IV 762.5 / 762.5 562.5 / 562.5 D5W/1/2 NS Inj 1,000 ML @ 75 400 / 400 mls/hr IV.CONT .[id number] [facility] Rx# :[id number] Privigen Inj 30 GM In Bag/ 300 / 300 Syringe 1 EACH @ 37.5 mls/hr IV .SIG Q24HR [facility] Rx#:[id number] Magnesium Sulfate Inj 2 GM In 100 / 100 NS Inj 96 ML @ 50 mls/hr IV.SIG ONCE ONE Rx#:[id number] Vancomycin Inj 1,250 MG In NS 262.5 / 262.5 262.5 / 262.5 Inj 250 ML @ 250 mls/hr IV.SIG Q12H [facility] Rx#:[id number] Oral 0 / 0 Output: Urine 500 / 500 Other: # Voids 4 Date of Last Bowel Movement 07/25/18 08/01/18 # Bowel Movements 0 0 Narrative: General patient sitting upright in bed, awake and alert. HEENT extraocular movements are intact, Vas-Cath on the right. Cardiovascular S1-S2 audible, RRR, Respiratory clear to auscultation bilaterally Abdomen soft, nontender, nondistended, normal bowel sounds, G-tube in place Extremities no edema 2+ distal pulses in bilateral upper and lower extremities Neuro patient can move all 4 extremities. Sensation intact b/l Results - Labs CBC & Chem 7: 08/01/18 20:31 08/02/18 12:30 Laboratory Results - last 24 hr 08/01/18 08/01/18 08/01/18 17:25 20:31 20:31 WBC RBC Hgb Hct MCV MCH MCHC RDW Plt Count MPV Prelim Diff (Auto) Neut % (Auto) Lymph % (Auto) [place] % (Auto) Eos % (Auto) Baso % (Auto) Neut # (Auto) Lymph # (Auto) [place] # (Auto) Eos # (Auto) Baso # (Auto) WBC Differential Seg Neuts % (Manual) Band Neuts % (Manual) Lymphocytes % (Manual) Monocytes % (Manual) Abs Neuts (Manual) Differential Comment Platelet Estimate Platelet Morphology Ovalocytes PT 11.8 H INR 1.2 APTT 35.7 H Fibrinogen 157 L Sodium Potassium Chloride Carbon Dioxide Anion Gap BUN Creatinine Estimated GFR POC Glucose 117 H Random Glucose Calcium Magnesium Vancomycin Trough 08/01/18 08/01/18 08/02/18 20:31 20:31 06:30 WBC 1.8 L RBC 3.00 L Hgb 9.6 L Hct 28.9 L MCV 96.2 MCH 32.0 MCHC 33.3 RDW 16.9 Plt Count 93 L MPV 8.7 Prelim Diff (Auto) Slide review pending Neut % (Auto) 76.3 H Lymph % (Auto) 12.6 [place] % (Auto) 9.9 H Eos % (Auto) 0.6 Baso % (Auto) 0.6 Neut # (Auto) 1.4 L Lymph # (Auto) 0.2 L [place] # (Auto) 0.2 Eos # (Auto) 0.0 Baso # (Auto) 0.0 WBC Differential Manual diff final Seg Neuts % (Manual) 74 H Band Neuts % (Manual) 4 Lymphocytes % (Manual) 13 Monocytes % (Manual) 9 H Abs Neuts (Manual) 1.4 L Differential Comment . Platelet Estimate Low L Platelet Morphology Normal Ovalocytes 1+ H PT INR APTT Cancelled Fibrinogen Sodium Potassium Chloride Carbon Dioxide Anion Gap BUN Creatinine Estimated GFR POC Glucose 93 Random Glucose Calcium Magnesium Vancomycin Trough 08/02/18 08/02/18 12:14 12:30 WBC RBC Hgb Hct MCV MCH MCHC RDW Plt Count MPV Prelim Diff (Auto) Neut % (Auto) Lymph % (Auto) [place] % (Auto) Eos % (Auto) Baso % (Auto) Neut # (Auto) Lymph # (Auto) [place] # (Auto) Eos # (Auto) Baso # (Auto) WBC Differential Seg Neuts % (Manual) Band Neuts % (Manual) Lymphocytes % (Manual) Monocytes % (Manual) Abs Neuts (Manual) Differential Comment Platelet Estimate Platelet Morphology Ovalocytes PT INR APTT Fibrinogen Sodium 138 Potassium 3.6 D Chloride 104 Carbon Dioxide 28.1 Anion Gap 6 BUN 9 Creatinine 0.56 L Estimated GFR Greater than 89 POC Glucose 102 Random Glucose 92 Calcium 8.1 L Magnesium 2.1 Vancomycin Trough 12.9 H Microbiology 07/28/18 11:20 Blood - Peripheral Aerobic Blood Culture - Final No growth in 5 days 07/28/18 11:20 Blood - Peripheral Anaerobic Blood Culture - Final No growth in 5 days 07/28/18 11:25 Blood - Peripheral Aerobic Blood Culture - Final No growth in 5 days 07/28/18 11:25 Blood - Peripheral Anaerobic Blood Culture - Final No growth in 5 days - Procedures 07/08 lumbar puncture 07/11 Vas-cath placement Assessment and Plan - Assessment (1) Neutropenic precautions Status: Acute (2) Neutropenic fever Code(s): D70.9 - Neutropenia, unspecified; R50.81 - Fever presenting with conditions classified elsewhere Status: Acute (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 During that admission patient was found to have bacteremia with neutropenic fever. His Vas-Cath was removed. New Vas-Cath placed on 07/25/18. Patient is in the hospital receiving plasmapheresis. 08/02/18 Patient evaluated today. Had two episodes of fever over the past 24 hrs. No new source of infection that I can identify. Patient is being treated for MRSA bacteremia. Continue IV antibiotics. ID following. Completed tx with plasmapheresis for Guillan Thurmond. Neuro increased the dose for gabapentin. ID following the patient, on Vancomycin for MRSA bacteremia, Repeat cxs are negative from 07/28/18. Will await their recs. Hem/Onc also following the patient, pt is pancytopenic. Plasmapheresis likely contributing to the pancytopenia. Will follow up with their recs today. Once patient is cleared he will be discharged to a rehab facility most likely. Continue to monitor electrolytes and replace as needed. 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 Patient has received 6 of 7 treatments. Scheduled for plasmapheresis #7 today. Plan to transfuse cryoprecipitate after plasma exchange. 2. Neutropenia One febrile episode during the hospitalization. The patient has been afebrile for the past few days. WBC ct 1.7 today. Oncology following the patient. As per documentation the patient had a prior bone marrow biopsy from [facility] which was nondiagnostic Neupogen started by hematology on 07/28 HIV screen negative 3. MRSA Bacteremia 2 fevers over the past 24 hrs. Cultures from 07/28 are negative MRSA and enterococcus Continue vancomycin as per infectious disease recommendations. I will follow up with them today for their recommendations. 4. Chronic pain Patient is a history of drug use, high tolerance. Currently tachycardic, patient complaining of pain. Continue p.o. Dilaudid, IV pain meds for breakthrough pain. Giving a dose now, discussed with nurse, tachycardia possibly due to current complaints of pain. 5. Thrombocytopenia Likely secondary to hepatitis C. No current signs of bleeding. Hematology following the patient. 6. Adrenal insufficiency Blood sugars are stable. Pressure stable. Continue p.o. 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 Ornelas . Continue testosterone injections outpatient. 7. 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 Rudi Medina [phone]/ Soniya BREAUX [phone]). Previous J-tube placement. Hepatitis profile: + Hep C Ig ab US abdomen: Hepatosplenomegaly On Protonix 40 mg p.o. for GI prophylaxis Continue tube feeds via J-tube change to Suplena with goal rate 70ml/hr Patient cut his J-tube apparently accidentally, replaced. SCDs for DVT prophylaxis 9. History of bradycardia Patient with [employer] pacer 10. Cut PEG tube The patient originally had PEG tube placed by thoracic surgeon, patient accidentally cut the tube on 07/26/2018. Interventional radiology was consulted by GI and PEG tube was replaced. Continue feeds through the PEG tube. 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 Otherwise patient to be discharged to SNF/rehab once secured after plasmapharesis complete and cleared by ID.
--- NOTE | 2018-08-02 17:05 | P.PNNEU ---
Subjective Subjective Comments: pt still c/o pain. On gabapentin 900 mg tid He feels weakness is improving, but weak in right foot Active Medications: Active Medications Acetaminophen (Tylenol Liq) 650 mg PO Q6H PRN PRN Reason: temp > 100.4 Last Admin: 08/02/18 08:23 Dose: 650 mg Al Hydroxide/Mg Hydroxide (Milk Of Magnesia Liq) 30 ml PO Q12H PRN PRN Reason: Mild Constipation Last Admin: 07/07/18 15:45 Dose: 30 ml Albuterol (Duoneb Neb (Prn)) 1 ampul NEB Q2HR NEB PRN PRN Reason: WHEEZING Last Admin: 07/13/18 04:13 Dose: 1 ampul Bisacodyl (Dulcolax Supp) 10 mg RECTAL DAILY PRN PRN Reason: SEVERE CONSITIPATION Fentanyl (Duragesic 25 Mcg Patch.72hr) 1 patch T-DERMAL Q72H [facility] Last Admin: 08/02/18 12:38 Dose: 1 patch Gabapentin (Neurontin) 900 mg PO TID [facility] Last Admin: 08/02/18 12:39 Dose: 900 mg Heparin Sodium (Porcine) (Heparin Central Flush) 0 unit IV.FLUSH DAILY PRN PRN Reason: SEE DOSE INSTRUCTIONS Last Admin: 07/29/18 11:50 Dose: 1,000 unit Heparin Sodium (Porcine) (Heparin Inj) 1,000 units IV.FLUSH UNSCH PRN PRN Reason: FLUSH AFTER USING IV ACCESS Hydrocortisone Acetate (Cortef) 20 mg PO TID [facility] Last Admin: 08/02/18 12:39 Dose: 20 mg Hydromorphone HCl (Dilaudid) 8 mg PO Q4H PRN PRN Reason: Acute Pain 1 to 10 Last Admin: 08/02/18 14:40 Dose: 8 mg Hydromorphone HCl (Dilaudid Pf Inj) 1 mg IV.PUSH Q4H PRN PRN Reason: BREAKTHROUGH PAIN Last Admin: 08/02/18 16:41 Dose: 1 mg Vancomycin HCl 1,250 mg/ (Sodium Chloride) 262.5 mls @ 250 mls/hr IV.SIG Q12H [facility] Last Infusion: 08/02/18 15:28 Dose: Infused Immune Globulin 30 gm/ (Miscellaneous Medication) 300 mls @ 37.5 mls/hr IV.SIG Q24HR [facility] Stop: 08/02/18 23:59 Last Admin: 08/02/18 04:49 Dose: 37.5 mls/hr Immune Globulin 15 gm/ (Miscellaneous Medication) 150 mls @ 22.11 mls/hr IV.SIG TITRATE [facility]; Protocol Stop: 08/03/18 22:48 Lactulose (Lactulose Liq) 30 ml PO DAILY PRN PRN Reason: SEVERE CONSITIPATION Last Admin: 07/19/18 09:15 Dose: 30 ml Levetiracetam (Keppra) 750 mg PO BID [facility] Last Admin: 08/02/18 08:12 Dose: 750 mg Levothyroxine Sodium (Synthroid) 75 mcg PO DAILY@0600 [facility] Last Admin: 08/02/18 06:05 Dose: 75 mcg Lorazepam (Ativan) 1 mg PO Q6H PRN PRN Reason: ANXIETY Last Admin: 08/02/18 12:39 Dose: 1 mg Naloxone HCl (Narcan Inj) 0.4 mg IV.PUSH Q2M PRN PRN Reason: SEDATION Pantoprazole Sodium (Protonix) 40 mg PO DAILY [facility] Last Admin: 08/02/18 08:12 Dose: 40 mg Patch Removal (Remove Old Patch) 1 each T-DERMAL Q72H [facility] Last Admin: 08/02/18 12:39 Dose: 1 each Patch Removal (Remove Old Patch) 1 each T-DERMAL Q72H [facility] Last Admin: 08/02/18 12:39 Dose: 1 each Pharmacy Profile Note (Vancomycin Consult Pharmacy) 1 each OTHER UNSCH PRN PRN Reason: Pharmacy to dose Pregabalin (Lyrica) 25 mg PO BID [facility] Quetiapine Fumarate (Seroquel) 400 mg PO BID [facility] Last Admin: 07/03/18 21:19 Dose: Not Given Sennosides (Senokot) 17.2 mg PO Q12H PRN PRN Reason: Moderate Constipation Sodium Chloride (Ns Flush) 2 ml IV.FLUSH PRN PRN PRN Reason: FLUSH AFTER USING IV ACCESS Last Admin: 07/30/18 19:55 Dose: 2 ml Sodium Chloride (Ns Flush) 0 ml IV.FLUSH PRN PRN PRN Reason: SEE DOSE INSTRUCTIONS Sodium Chloride (Ns Flush) 10 ml IV.FLUSH UNSCH PRN PRN Reason: FLUSH AFTER USING IV ACCESS Tizanidine HCl (Zanaflex) 4 mg PO Q6H PRN PRN Reason: MUSCLE SPASM Last Admin: 08/02/18 16:30 Dose: 4 mg Trazodone HCl (Desyrel) 50 mg PO HS [facility] Last Admin: 08/01/18 20:00 Dose: 50 mg Allergies/Adverse Reactions: Allergies Allergy/AdvReac Type Severity Reaction Status Date / Time codeine Allergy Severe Hives Verified 07/20/18 21:01 tramadol Allergy Severe seizure Verified 07/20/18 21:01 cyclobenzaprine Allergy Unknown Unresponsiv Verified 06/30/18 10:28 e fluvoxamine Allergy Unknown Unresponsiv Verified 06/30/18 10:28 e zolpidem Allergy Unknown Unconscious Verified 06/30/18 10:28 Beta-Blockers Allergy Anaphylaxis Verified 06/30/18 10:28 (Beta-Adrenergic Bloc MRI PRECAUTION AdvReac Severe NON REVO Uncoded 08/04/17 18:49 PACEMAKER Physical Exam Vital signs: Vital Signs 08/01/18 17:33 08/01/18 20:00 08/01/18 20:04 Temperature 98.5 F Pulse Rate 93 H 99 H 102 H Respiratory Rate 16 18 Blood Pressure 139/84 153/86 H Pulse Oximetry 99 08/02/18 00:00 08/02/18 04:00 08/02/18 04:49 Temperature 98.5 F Pulse Rate 87 113 H 105 H Respiratory Rate 17 18 18 Blood Pressure 132/66 153/81 H 153/70 H Pulse Oximetry 100 99 08/02/18 08:00 08/02/18 12:00 08/02/18 16:00 Temperature 102.9 F H 98.9 F 98 F Pulse Rate 119 H 70 79 Respiratory Rate 18 18 18 Blood Pressure 168/96 H 101/54 L 135/58 L Pulse Oximetry 100 98 98 Intake & Output 08/01/18 08/02/18 08/02/18 18:59 06:59 18:59 Intake Total 762.5 / 762.5 562.5 / 562.5 262.5 / 262.5 Output Total 500 / 500 Balance 262.5 / 262.5 562.5 / 562.5 262.5 / 262.5 Intake: IV 762.5 / 762.5 562.5 / 562.5 262.5 / 262.5 D5W/1/2 NS Inj 1,000 ML @ 75 400 / 400 mls/hr IV.CONT .[id number] [facility] Rx# :[id number] Privigen Inj 30 GM In Bag/ 300 / 300 Syringe 1 EACH @ 37.5 mls/hr IV .SIG Q24HR [facility] Rx#:[id number] Magnesium Sulfate Inj 2 GM In 100 / 100 NS Inj 96 ML @ 50 mls/hr IV.SIG ONCE ONE Rx#:[id number] Vancomycin Inj 1,250 MG In NS 262.5 / 262.5 262.5 / 262.5 262.5 / 262.5 Inj 250 ML @ 250 mls/hr IV.SIG Q12H [facility] Rx#:[id number] Oral 0 / 0 Output: Urine 500 / 500 Other: # Voids 4 Date of Last Bowel Movement 07/25/18 08/01/18 # Bowel Movements 0 0 - Routine Neurological Exam alert, speech normal CN intact MOTOR 4/5 bue and BLE Objective Laboratory Results - last 24 hr 08/01/18 08/01/18 08/01/18 17:25 20:31 20:31 WBC RBC Hgb Hct MCV MCH MCHC RDW Plt Count MPV Prelim Diff (Auto) Neut % (Auto) Lymph % (Auto) [place] % (Auto) Eos % (Auto) Baso % (Auto) Neut # (Auto) Lymph # (Auto) [place] # (Auto) Eos # (Auto) Baso # (Auto) WBC Differential Seg Neuts % (Manual) Band Neuts % (Manual) Lymphocytes % (Manual) Monocytes % (Manual) Abs Neuts (Manual) Differential Comment Platelet Estimate Platelet Morphology Ovalocytes PT 11.8 H INR 1.2 APTT 35.7 H Fibrinogen 157 L Sodium Potassium Chloride Carbon Dioxide Anion Gap BUN Creatinine Estimated GFR POC Glucose 117 H Random Glucose Calcium Magnesium Vancomycin Trough 08/01/18 08/01/18 08/02/18 20:31 20:31 06:30 WBC 1.8 L RBC 3.00 L Hgb 9.6 L Hct 28.9 L MCV 96.2 MCH 32.0 MCHC 33.3 RDW 16.9 Plt Count 93 L MPV 8.7 Prelim Diff (Auto) Slide review pending Neut % (Auto) 76.3 H Lymph % (Auto) 12.6 [place] % (Auto) 9.9 H Eos % (Auto) 0.6 Baso % (Auto) 0.6 Neut # (Auto) 1.4 L Lymph # (Auto) 0.2 L [place] # (Auto) 0.2 Eos # (Auto) 0.0 Baso # (Auto) 0.0 WBC Differential Manual diff final Seg Neuts % (Manual) 74 H Band Neuts % (Manual) 4 Lymphocytes % (Manual) 13 Monocytes % (Manual) 9 H Abs Neuts (Manual) 1.4 L Differential Comment . Platelet Estimate Low L Platelet Morphology Normal Ovalocytes 1+ H PT INR APTT Cancelled Fibrinogen Sodium Potassium Chloride Carbon Dioxide Anion Gap BUN Creatinine Estimated GFR POC Glucose 93 Random Glucose Calcium Magnesium Vancomycin Trough 08/02/18 08/02/18 12:14 12:30 WBC RBC Hgb Hct MCV MCH MCHC RDW Plt Count MPV Prelim Diff (Auto) Neut % (Auto) Lymph % (Auto) [place] % (Auto) Eos % (Auto) Baso % (Auto) Neut # (Auto) Lymph # (Auto) [place] # (Auto) Eos # (Auto) Baso # (Auto) WBC Differential Seg Neuts % (Manual) Band Neuts % (Manual) Lymphocytes % (Manual) Monocytes % (Manual) Abs Neuts (Manual) Differential Comment Platelet Estimate Platelet Morphology Ovalocytes PT INR APTT Fibrinogen Sodium 138 Potassium 3.6 D Chloride 104 Carbon Dioxide 28.1 Anion Gap 6 BUN 9 Creatinine 0.56 L Estimated GFR Greater than 89 POC Glucose 102 Random Glucose 92 Calcium 8.1 L Magnesium 2.1 Vancomycin Trough 12.9 H Microbiology 07/28/18 11:20 Aerobic Blood Culture - Final Blood - Peripheral No growth in 5 days Anaerobic Blood Culture - Final No growth in 5 days 07/28/18 11:25 Aerobic Blood Culture - Final Blood - Peripheral No growth in 5 days Anaerobic Blood Culture - Final No growth in 5 days Review/Management - Diagnosis (1) Myelopathy Code(s): G95.9 - Disease of spinal cord, unspecified Status: Acute Current Visit: Yes - Review/Management Plan: will add low dose lyrica 25 mg bid for neurogenic pain WOuld not give additional plasmapheresis at this time as his strength has shown considerable improvement and he had drop in blood count on pheresis. I recommend to continue PT He is stable from neuro standpoint to dc to rehab when ok with other services. Please schedule follow up with me in my office in 3 weeks
[2018-08-02] MEDS: traZODone 50 MG Tablet PO SCH (20:36)
[2018-08-02] MEDS: Pregabalin 25 MG Capsule PO SCH (20:36)
[2018-08-03] MEDS: HYDROmorphone PF Inj 0.5 MG/0.5 ML Syringe IV.PUSH PRN ×6 (01:25→23:02)
[2018-08-03] MEDS: LORazepam 1 MG Tablet PO PRN ×4 (01:25→19:40)
[2018-08-03] MEDS: Vancomycin Inj 1,250 MG in Sodium Chlor 0.9% Inj 250 ML IV.SIG SCH ×2 (01:25→12:28)
[2018-08-03] MEDS: Levothyroxine 75 MCG Tablet PO SCH (04:59)
[2018-08-03] MEDS: levETIRAcetam 250 MG Tablet PO SCH ×2 (08:26→21:25)
[2018-08-03] MEDS: Hydrocortisone 10 MG Tablet PO SCH ×3 (08:26→19:18)
[2018-08-03] MEDS: Gabapentin 300 MG Capsule PO SCH ×3 (08:26→19:18)
[2018-08-03] MEDS: Pregabalin 25 MG Capsule PO SCH ×2 (08:27→21:24)
[2018-08-03 08:45] LABS: Baso % (Auto) 0.5 % (0.0-2.0); Hemoglobin 8.4 gm/dL (13.0-17.0); Lymph # (Auto) 0.4 th/mm3 (1.0-4.8); Lymph % (Auto) 30.7 % (9.0-44.0); Mean Corpuscular HGB Conc 33.4 % (32.0-36.0); Mean Corpuscular Hemoglobin 32.4 pg (27.0-34.0); Mean Platelet Volume 8.9 fL (7.0-11.0); Mono # (Auto) 0.2 th/mm3 (0.0-0.9); Mono % (Auto) 13.3 % (0.0-8.0); Neut # (Auto) 0.7 th/mm3 (1.8-7.7); Neut % (Auto) 54.5 % (16.0-70.0); Platelet Count 82 th/mm3 (150-450); Red Blood Count 2.58 mil/mm3 (4.50-5.90); Red Cell Distribution Width 15.9 % (11.6-17.2); White Blood Count 1.3 th/mm3 (4.0-11.0)
[2018-08-03 09:06] LABS: Anion Gap 7 meq/L (5-15); Blood Urea Nitrogen 11 mg/dL (7-18); Calcium 8.2 mg/dL (8.5-10.1); Carbon Dioxide 30.2 meq/L (21.0-32.0); Chloride 103 meq/L (98-107); Glomerular Filtration Rate Greater Than 89 mL/min (>89); Glucose,Random 75 mg/dL (74-106); Sodium 140 meq/L (136-145)
[2018-08-03 09:11] LABS: Potassium 2.9 meq/L (3.5-5.1)
[2018-08-03] MEDS ORDERED: Potassium Chloride 25 MEQ Effervescent Tablet PO ONE (10:00)
[2018-08-03 10:08] LABS: Lymphocytes 23 % (9-44); Monocytes 14 % (0-8)
[2018-08-03 10:09] LABS: Platelet Morphology Normal (Normal)
--- NOTE | 2018-08-03 13:30 | P.PNIM ---
Subjective Interval history: No complaints from the patient this morning other than generalized pain. His condition and current plan were discussed with the patient. Physical Exam Vital signs: Vital Signs 08/02/18 16:00 08/02/18 20:00 08/02/18 20:14 Temperature 98 F 98.1 F Pulse Rate 80 71 60 Respiratory Rate 18 18 Blood Pressure 135/58 L 130/64 Pulse Oximetry 98 99 08/02/18 23:47 08/02/18 23:59 08/03/18 04:00 Temperature 98.3 F 98.7 F Pulse Rate 59 L 60 91 H Respiratory Rate 18 18 Blood Pressure 140/75 131/64 Pulse Oximetry 97 99 08/03/18 04:01 08/03/18 08:00 08/03/18 12:00 Temperature 99.6 F 99.3 F Pulse Rate 98 H 113 H 72 Respiratory Rate 18 18 Blood Pressure 152/93 H 110/63 Pulse Oximetry 98 95 Intake & Output 08/02/18 08/03/18 08/03/18 18:59 06:59 18:59 Intake Total 562.5 / 562.5 565.5 / 565.5 Balance 562.5 / 562.5 565.5 / 565.5 Weight 74.8 kg Intake: IV 562.5 / 562.5 565.5 / 565.5 Privigen Inj 30 GM In Bag/ 300 / 300 300 / 300 Syringe 1 EACH @ 37.5 mls/hr IV .SIG Q24HR ISIAH Rx#:[id number] Vancomycin Inj 1,250 MG In NS 262.5 / 262.5 265.5 / 265.5 Inj 250 ML @ 250 mls/hr IV.SIG Q12H ISIAH Rx#:[id number] Other: # Voids 3 Date of Last Bowel Movement 08/01/18 08/03/18 # Bowel Movements 0 Narrative: General patient sitting upright in bed, awake and alert. HEENT extraocular movements are intact, Vas-Cath on the right. Cardiovascular S1-S2 audible, RRR, Respiratory clear to auscultation bilaterally Abdomen soft, nontender, nondistended, normal bowel sounds, G-tube in place Extremities no edema 2+ distal pulses in bilateral upper and lower extremities Neuro patient can move all 4 extremities. Sensation intact b/l Results - Labs CBC & Chem 7: 08/03/18 06:29 08/03/18 06:29 Laboratory Results - last 24 hr 08/02/18 08/02/18 08/03/18 12:30 17:32 02:06 WBC RBC Hgb Hct MCV MCH MCHC RDW Plt Count MPV Prelim Diff (Auto) Neut % (Auto) Lymph % (Auto) [place] % (Auto) Eos % (Auto) Baso % (Auto) Neut # (Auto) Lymph # (Auto) [place] # (Auto) Eos # (Auto) Baso # (Auto) WBC Differential Seg Neuts % (Manual) Band Neuts % (Manual) Lymphocytes % (Manual) Monocytes % (Manual) Abs Neuts (Manual) Differential Comment Platelet Estimate Platelet Morphology Sodium 138 Potassium 3.6 D Chloride 104 Carbon Dioxide 28.1 Anion Gap 6 BUN 9 Creatinine 0.56 L Estimated GFR Greater than 89 POC Glucose 113 H 103 Random Glucose 92 Calcium 8.1 L Magnesium 2.1 Vancomycin Trough 12.9 H 08/03/18 08/03/18 08/03/18 06:22 06:29 06:29 WBC 1.3 L RBC 2.58 L Hgb 8.4 L Hct 25.0 L MCV 97.0 MCH 32.4 MCHC 33.4 RDW 15.9 Plt Count 82 L MPV 8.9 Prelim Diff (Auto) Slide review pending Neut % (Auto) 54.5 Lymph % (Auto) 30.7 [place] % (Auto) 13.3 H Eos % (Auto) 1.0 Baso % (Auto) 0.5 Neut # (Auto) 0.7 L Lymph # (Auto) 0.4 L [place] # (Auto) 0.2 Eos # (Auto) 0.0 Baso # (Auto) 0.0 WBC Differential Manual diff final Seg Neuts % (Manual) 59 Band Neuts % (Manual) 4 Lymphocytes % (Manual) 23 Monocytes % (Manual) 14 H Abs Neuts (Manual) 0.8 L Differential Comment . Platelet Estimate Low L Platelet Morphology Normal Sodium 140 Potassium 2.9 L* Chloride 103 Carbon Dioxide 30.2 Anion Gap 7 BUN 11 Creatinine 0.44 L Estimated GFR Greater than 89 POC Glucose 102 Random Glucose 75 Calcium 8.2 L Magnesium 2.0 Vancomycin Trough 08/03/18 12:39 WBC RBC Hgb Hct MCV MCH MCHC RDW Plt Count MPV Prelim Diff (Auto) Neut % (Auto) Lymph % (Auto) [place] % (Auto) Eos % (Auto) Baso % (Auto) Neut # (Auto) Lymph # (Auto) [place] # (Auto) Eos # (Auto) Baso # (Auto) WBC Differential Seg Neuts % (Manual) Band Neuts % (Manual) Lymphocytes % (Manual) Monocytes % (Manual) Abs Neuts (Manual) Differential Comment Platelet Estimate Platelet Morphology Sodium Potassium Chloride Carbon Dioxide Anion Gap BUN Creatinine Estimated GFR POC Glucose 104 Random Glucose Calcium Magnesium Vancomycin Trough Microbiology 07/28/18 11:20 Blood - Peripheral Aerobic Blood Culture - Final No growth in 5 days 07/28/18 11:20 Blood - Peripheral Anaerobic Blood Culture - Final No growth in 5 days 07/28/18 11:25 Blood - Peripheral Aerobic Blood Culture - Final No growth in 5 days 07/28/18 11:25 Blood - Peripheral Anaerobic Blood Culture - Final No growth in 5 days - Procedures 07/08 lumbar puncture 07/11 Vas-cath placement Assessment and Plan - Assessment (1) Neutropenic precautions Status: Acute (2) Neutropenic fever Code(s): D70.9 - Neutropenia, unspecified; R50.81 - Fever presenting with conditions classified elsewhere Status: Acute (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 During that admission patient was found to have bacteremia with neutropenic fever. His Vas-Cath was removed. New Vas-Cath placed on 07/25/18. Patient is in the hospital receiving plasmapheresis. 08/03/18 Patient evaluated today. Now afebrile over nearly 24 hrs. Patient is being treated for MRSA bacteremia. Continue IV antibiotics. ID following. Completed tx with plasmapheresis for Guillan [place]. Neuro increased the dose for gabapentin, added lyrica. Case discussed with Dr. Jones yesterday, cleared from neuro standpoint. No need for further plasmapheresis for now. ID following the patient, on Vancomycin for MRSA bacteremia, Repeat cxs are negative from 07/28/18. Will await their recs. HEM/ONC is also signing off on the patient. Plasmapheresis likely contributing to the pancytopenia. His blood counts should improve now that plasmapheresis has been completed. I will discuss the case with ID today. Case will also be discussed with case management for discharge. Continue to monitor electrolytes and replace as needed. Patient was hypokalemic this morning. Electrolytes replaced. Patient is ambulatory, no pharmacotherapy for dvt prophylaxis, pt has thrombocytopenia. Continue with SCDs. 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 Patient has received 6 of 7 treatments. Scheduled for plasmapheresis #7 today. Plan to transfuse cryoprecipitate after plasma exchange. 2. Neutropenia One febrile episode during the hospitalization. The patient has been afebrile for the past few days. WBC ct 1.7 today. Oncology following the patient. As per documentation the patient had a prior bone marrow biopsy from [facility] which was nondiagnostic Neupogen started by hematology on 07/28 HIV screen negative 3. MRSA Bacteremia 2 fevers over the past 24 hrs. Cultures from 07/28 are negative MRSA and enterococcus Continue vancomycin as per infectious disease recommendations. I will follow up with them today for their recommendations. 4. Chronic pain Patient is a history of drug use, high tolerance. Currently tachycardic, patient complaining of pain. Continue p.o. Dilaudid, IV pain meds for breakthrough pain. Giving a dose now, discussed with nurse, tachycardia possibly due to current complaints of pain. 5. Thrombocytopenia Likely secondary to hepatitis C. No current signs of bleeding. Hematology following the patient. 6. Adrenal insufficiency Blood sugars are stable. Pressure stable. Continue p.o. 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 Continue testosterone injections outpatient. 7. 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 Rudi Medina [phone]/ Soniya BREAUX [phone]). Previous J-tube placement. Hepatitis profile: + Hep C Ig ab US abdomen: Hepatosplenomegaly On Protonix 40 mg p.o. for GI prophylaxis Continue tube feeds via J-tube change to Suplena with goal rate 70ml/hr Patient cut his J-tube apparently accidentally, replaced. SCDs for DVT prophylaxis 9. History of bradycardia Patient with Medtronic pacer 10. Cut PEG tube The patient originally had PEG tube placed by thoracic surgeon, patient accidentally cut the tube on 07/26/2018. Interventional radiology was consulted by GI and PEG tube was replaced. Continue feeds through the PEG tube.
[2018-08-03] MEDS ORDERED: IVIG IV.SIG SCH (16:00)
[2018-08-03] MEDS: traZODone 50 MG Tablet PO SCH (21:25)
[2018-08-04] MEDS: LORazepam 1 MG Tablet PO PRN ×4 (01:34→20:33)
[2018-08-04] MEDS: Vancomycin Inj 1,250 MG in Sodium Chlor 0.9% Inj 250 ML IV.SIG SCH ×2 (01:34→12:08)
[2018-08-04] MEDS: HYDROmorphone PF Inj 0.5 MG/0.5 ML Syringe IV.PUSH PRN ×4 (03:25→21:09)
[2018-08-04] MEDS: Levothyroxine 75 MCG Tablet PO SCH (05:07)
[2018-08-04] MEDS: levETIRAcetam 250 MG Tablet PO SCH ×2 (08:03→20:17)
[2018-08-04] MEDS: Hydrocortisone 10 MG Tablet PO SCH ×4 (08:03→20:27)
[2018-08-04] MEDS: Pregabalin 25 MG Capsule PO SCH ×2 (08:03→20:17)
[2018-08-04] MEDS: Gabapentin 300 MG Capsule PO SCH ×3 (08:03→17:19)
--- NOTE | 2018-08-04 10:36 | P.PNIM ---
Subjective Interval history: Patient sitting upright in bed. No specific complaints today other than general pain. Physical Exam Vital signs: Vital Signs 08/03/18 12:00 08/03/18 16:00 08/03/18 16:35 Temperature 99.3 F 99.0 F Pulse Rate 67 92 H 72 Respiratory Rate 18 18 18 Blood Pressure 110/63 143/85 H 110/63 Pulse Oximetry 95 97 08/03/18 20:00 08/04/18 00:00 08/04/18 04:00 Temperature 98.8 F 98.6 F 98.7 F Pulse Rate 67 63 77 Respiratory Rate 17 15 17 Blood Pressure 147/74 H 162/82 H 142/76 H Pulse Oximetry 94 L 94 L 99 08/04/18 08:00 08/04/18 09:17 Temperature 97.2 F L Pulse Rate 70 77 Respiratory Rate 18 Blood Pressure 109/58 L Pulse Oximetry 97 Intake & Output 08/03/18 08/04/18 08/04/18 18:59 06:59 18:59 Intake Total 742.5 / 742.5 682.5 / 682.5 Output Total 500 / 500 Balance 242.5 / 242.5 682.5 / 682.5 Weight 73.4 kg Intake: IV 262.5 / 262.5 262.5 / 262.5 Vancomycin Inj 1,250 MG In NS 262.5 / 262.5 262.5 / 262.5 Inj 250 ML @ 250 mls/hr IV.SIG Q12H ISIHA Rx#:[id number] Oral 480 / 480 420 / 420 Output: Urine 500 / 500 Other: # Voids 2 Date of Last Bowel Movement 08/03/18 08/03/18 08/04/18 # Bowel Movements 0 Narrative: General patient sitting upright in bed, awake and alert. HEENT extraocular movements are intact, Vas-Cath on the right. Cardiovascular S1-S2 audible, RRR, Respiratory clear to auscultation bilaterally Abdomen soft, nontender, nondistended, normal bowel sounds, G-tube in place Extremities no edema 2+ distal pulses in bilateral upper and lower extremities Neuro patient can move all 4 extremities. 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 During that admission patient was found to have bacteremia with neutropenic fever. His Vas-Cath was removed. New Vas-Cath placed on 07/25/18. Patient is in the hospital receiving plasmapheresis. 08/04/18 Patient evaluated today. Afebrile overnight. Patient is being treated for MRSA bacteremia. Continue IV Vanco, will discuss with ID today regarding duration of IV antibiotics for MRSA and Enterococcus bacteremia. Completed tx with plasmapheresis for Guillan [place]. Neuro increased the dose for gabapentin, added lyrica. Case discussed with Dr. Jones, cleared from neuro standpoint. No need for further plasmapheresis for now. ID following the patient, on Vancomycin for MRSA bacteremia, Repeat cxs are negative from 07/28/18. Will await their recs. HEM/ONC is also signing off on the patient. Plasmapheresis likely contributing to the pancytopenia. His blood counts should improve now that plasmapheresis has been completed. Continue to monitor electrolytes, replace as needed. Patient is ambulatory, no pharmacotherapy for dvt prophylaxis, pt has thrombocytopenia. Continue with SCDs. Discharge planning, medically the patient is now clear for discharge, pending plan for IV antibiotics on discharge and placement at a rehab facility on discharge. 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 Patient has received 6 of 7 treatments. Scheduled for plasmapheresis #7 today. Plan to transfuse cryoprecipitate after plasma exchange. 2. Neutropenia One febrile episode during the hospitalization. The patient has been afebrile for the past few days. WBC ct 1.7 today. Oncology following the patient. As per documentation the patient had a prior bone marrow biopsy from [facility] which was nondiagnostic Neupogen started by hematology on 07/28 HIV screen negative 3. MRSA Bacteremia 2 fevers over the past 24 hrs. Cultures from 07/28 are negative MRSA and enterococcus Continue vancomycin as per infectious disease recommendations. I will follow up with them today for their recommendations. 4. Chronic pain Patient is a history of drug use, high tolerance. Currently tachycardic, patient complaining of pain. Continue p.o. Dilaudid, IV pain meds for breakthrough pain. Giving a dose now, discussed with nurse, tachycardia possibly due to current complaints of pain. 5. Thrombocytopenia Likely secondary to hepatitis C. No current signs of bleeding. Hematology following the patient. 6. Adrenal insufficiency Blood sugars are stable. Pressure stable. Continue p.o. 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 Continue testosterone injections outpatient. 7. 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 Rudi Medina [phone]/ Soniya BREAUX [phone]). Previous J-tube placement. Hepatitis profile: + Hep C Ig ab US abdomen: Hepatosplenomegaly On Protonix 40 mg p.o. for GI prophylaxis Continue tube feeds via J-tube change to Suplena with goal rate 70ml/hr Patient cut his J-tube apparently accidentally, replaced. SCDs for DVT prophylaxis 9. History of bradycardia Patient with Medtronic pacer 10. Cut PEG tube The patient originally had PEG tube placed by thoracic surgeon, patient accidentally cut the tube on 07/26/2018. Interventional radiology was consulted by GI and PEG tube was replaced. Continue feeds through the PEG tube.
[2018-08-04 13:54] LABS: Anion Gap 5 meq/L (5-15); Blood Urea Nitrogen 8 mg/dL (7-18); Carbon Dioxide 30.1 meq/L (21.0-32.0); Chloride 104 meq/L (98-107); Glomerular Filtration Rate Greater Than 89 mL/min (>89); Glucose,Random 101 mg/dL (74-106); Magnesium 2.1 mg/dL (1.5-2.5); Potassium 3.6 meq/L (3.5-5.1); Sodium 139 meq/L (136-145)
[2018-08-04] MEDS ORDERED: Potassium Chloride 25 MEQ Effervescent Tablet PO ONE (17:34)
[2018-08-04] MEDS: traZODone 50 MG Tablet PO SCH (20:17)
[2018-08-05] MEDS: HYDROmorphone PF Inj 0.5 MG/0.5 ML Syringe IV.PUSH PRN ×3 (01:20→10:25)
[2018-08-05] MEDS: Vancomycin Inj 1,250 MG in Sodium Chlor 0.9% Inj 250 ML IV.SIG SCH ×2 (01:20→17:49)
[2018-08-05] MEDS: LORazepam 1 MG Tablet PO PRN ×4 (03:56→23:19)
[2018-08-05] MEDS: Levothyroxine 75 MCG Tablet PO SCH (05:21)
[2018-08-05] MEDS: levETIRAcetam 250 MG Tablet PO SCH ×2 (08:16→21:52)
[2018-08-05] MEDS: Hydrocortisone 10 MG Tablet PO SCH ×3 (08:16→17:11)
[2018-08-05] MEDS: Pregabalin 25 MG Capsule PO SCH ×2 (08:16→21:52)
[2018-08-05] MEDS: Gabapentin 300 MG Capsule PO SCH ×3 (08:16→17:11)
[2018-08-05 08:44] LABS: Anion Gap 5 meq/L (5-15); Blood Urea Nitrogen 7 mg/dL (7-18); Calcium 8.4 mg/dL (8.5-10.1); Carbon Dioxide 31.6 meq/L (21.0-32.0); Chloride 106 meq/L (98-107); Glomerular Filtration Rate Greater Than 89 mL/min (>89); Glucose,Random 92 mg/dL (74-106); Potassium 3.4 meq/L (3.5-5.1); Sodium 143 meq/L (136-145)
--- NOTE | 2018-08-05 11:02 | MB ---
cc: Driss Ibrahim MD DATE: 08/05/2018 HISTORY OF PRESENT ILLNESS: Krish is seen in followup as his mother called me on Sunday night, i.e. 08/02/2018, and was concerned about his ongoing care if he is discharged from the hospital and wants to take him to a tertiary care facility, etc. We had a long discussion about his care and the fact that he had cytopenias due to the plasmapheresis which is not causing him a life-threatening infection at this time and that infectious disease is on the case treating him with antibiotics, specifically vancomycin. Hence, I have advised that I will followup on Krish today; and hence, I am seeing him in followup and he is feeling much better since Sunday. He has been afebrile and has been pain free. He has no bleeding or bruising. PHYSICAL EXAMINATION: GENERAL: On examination, well appearing, no apparent distress. Pallor present. No icterus. No palpable adenopathy in the neck or axilla. Alert and oriented x 4. CARDIOVASCULAR: S1, S2, regular rate and rhythm. ABDOMEN: Soft, without palpable organomegaly. No guarding, rigidity, or rebound. EXTREMITIES: No edema or evidence of deep venous thrombosis. NECK: With ostomy without evidence of infection. LABORATORY DATA: No CBC is ordered for today. I will order the same stat and see him in followup in the hospital. IMPRESSION AND PLAN: Guillain-[place] syndrome on plasmapheresis status post last phlebotomy last week with cytopenias resulting from plasmapheresis. We will continue to monitor him with a repeat CBC this morning as ordered stat. His plasmapheresis treatments have been stopped by Dr. Jones, and he will follow up with further neurologic therapy; and I will be available for help regarding his cytopenias and/or any other hematologic issues that I can help with otherwise in this wonderful young man. This was discussed with his mother on Sunday. MD SEAN Kulkarni/davina , 10:39 AM , 10:48 AM ADDENDUM : Counts increasing. Pt not neutropenic. Will f/u. MA MTDD
[2018-08-05 11:38] LABS: Baso % (Auto) 0.3 % (0.0-2.0); Eos % (Auto) 0.2 % (0.0-4.0); Hematocrit 29.8 % (39.0-51.0); Hemoglobin 9.9 gm/dL (13.0-17.0); Lymph # (Auto) 0.4 th/mm3 (1.0-4.8); Lymph % (Auto) 16.9 % (9.0-44.0); Mean Corpuscular HGB Conc 33.1 % (32.0-36.0); Mean Corpuscular Hemoglobin 31.9 pg (27.0-34.0); Mean Corpuscular Volume 96.4 fL (80.0-100.0); Mean Platelet Volume 8.9 fL (7.0-11.0); Mono # (Auto) 0.2 th/mm3 (0.0-0.9); Mono % (Auto) 9.2 % (0.0-8.0); Neut # (Auto) 1.7 th/mm3 (1.8-7.7); Neut % (Auto) 73.4 % (16.0-70.0); Platelet Count 116 th/mm3 (150-450); Red Blood Count 3.09 mil/mm3 (4.50-5.90); Red Cell Distribution Width 16.8 % (11.6-17.2); White Blood Count 2.3 th/mm3 (4.0-11.0)
[2018-08-05] MEDS ORDERED: Potassium Chloride 25 MEQ Effervescent Tablet PO ONE (14:12)
--- NOTE | 2018-08-05 14:44 | P.PNIM ---
Subjective Interval history: Patient sitting upright in bed. No specific complaints from the patient today. Physical Exam Vital signs: Vital Signs 08/04/18 16:00 08/04/18 19:44 08/04/18 20:00 Temperature 98.1 F 98.2 F Pulse Rate 79 63 65 Respiratory Rate 18 16 Blood Pressure 147/89 H 143/91 H Pulse Oximetry 96 100 08/05/18 00:00 08/05/18 03:17 08/05/18 03:53 Temperature 98 F 98 F Pulse Rate 64 91 H 96 H Respiratory Rate 15 18 Blood Pressure 133/71 177/93 H Pulse Oximetry 96 100 08/05/18 08:00 08/05/18 12:00 Temperature 98.5 F 98.3 F Pulse Rate 101 H 92 H Respiratory Rate 17 17 Blood Pressure 137/81 159/92 H Pulse Oximetry 100 99 Intake & Output 08/04/18 08/05/18 08/05/18 18:59 06:59 18:59 Intake Total 982.5 / 982.5 502.5 / 502.5 Output Total 750 / 750 Balance 232.5 / 232.5 502.5 / 502.5 Weight 73 kg Intake: IV 262.5 / 262.5 262.5 / 262.5 Vancomycin Inj 1,250 MG In NS 262.5 / 262.5 262.5 / 262.5 Inj 250 ML @ 250 mls/hr IV.SIG Q12H ISIAH Rx#:[id number] Oral 720 / 720 240 / 240 Output: Urine 750 / 750 Other: # Voids 3 Date of Last Bowel Movement 08/04/18 Narrative: General patient sitting upright in bed, awake and alert. HEENT extraocular movements are intact, Vas-Cath on the right. Cardiovascular S1-S2 audible, RRR, Respiratory clear to auscultation bilaterally Abdomen soft, nontender, nondistended, normal bowel sounds, G-tube in place Extremities no edema 2+ distal pulses in bilateral upper and lower extremities Neuro patient can move all 4 extremities. Sensation intact b/l Results - Labs CBC & Chem 7: 08/05/18 11:12 08/05/18 06:58 Laboratory Results - last 24 hr 08/04/18 08/05/18 08/05/18 17:04 01:22 05:32 WBC RBC Hgb Hct MCV MCH MCHC RDW Plt Count MPV Neut % (Auto) Lymph % (Auto) [place] % (Auto) Eos % (Auto) Baso % (Auto) Neut # (Auto) Lymph # (Auto) [place] # (Auto) Eos # (Auto) Baso # (Auto) WBC Differential Differential Comment Sodium Potassium Chloride Carbon Dioxide Anion Gap BUN Creatinine Estimated GFR POC Glucose 99 115 H 97 Random Glucose Calcium Magnesium 08/05/18 08/05/18 06:58 11:12 WBC 2.3 L RBC 3.09 L Hgb 9.9 L Hct 29.8 L MCV 96.4 MCH 31.9 MCHC 33.1 RDW 16.8 Plt Count 116 L D MPV 8.9 Neut % (Auto) 73.4 H Lymph % (Auto) 16.9 [place] % (Auto) 9.2 H Eos % (Auto) 0.2 Baso % (Auto) 0.3 Neut # (Auto) 1.7 L Lymph # (Auto) 0.4 L [place] # (Auto) 0.2 Eos # (Auto) 0.0 Baso # (Auto) 0.0 WBC Differential . 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 During that admission patient was found to have bacteremia with neutropenic fever. His Vas-Cath was removed. New Vas-Cath placed on 07/25/18. Patient is in the hospital receiving plasmapheresis. 08/05/18 Patient evaluated today. Afebrile overnight. Patient is being treated for MRSA bacteremia. Continue IV Vanco, will discuss with ID today regarding duration of IV antibiotics for MRSA and Enterococcus bacteremia. Repeat blood cxs from 07/28/18 are negative. I discussed the case with Dr. Lopez today and the patient is not a good candidate for IV antibiotics outside of the hospital. As per the staff he was found in the bathroom with his computer and syringes possibly manipulating his lines. ID following, continue with IV antibiotics in the hospital for now. Completed tx with plasmapheresis for Guillan [place]. Neuro increased the dose for gabapentin, added lyrica. Case discussed with Dr. Jones, cleared from neuro standpoint. No need for further plasmapheresis for now. HEM/ONC is also signing off on the patient. Plasmapheresis likely contributing to the pancytopenia. His blood counts should improve now that plasmapheresis has been completed. Continue to monitor electrolytes, replace as needed. Patient is ambulatory, no pharmacotherapy for dvt prophylaxis, pt has thrombocytopenia. Continue with SCDs. Discharge planning, medically the patient is now clear for discharge, however he is not a good candidate to go home with an IV line for IV antibiotics. ID following. 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 Patient has received 6 of 7 treatments. Plasmapheresis 01/26 completed. 2. Neutropenia One febrile episode during the hospitalization. The patient has been afebrile for the past few days. WBC ct 1.7 today. Oncology following the patient. As per documentation the patient had a prior bone marrow biopsy from [facility] which was nondiagnostic Neupogen started by hematology on 07/28 HIV screen negative 3. MRSA Bacteremia 2 fevers over the past 24 hrs. Cultures from 07/28 are negative MRSA and enterococcus Continue vancomycin as per infectious disease recommendations. I will follow up with them today for their recommendations. 4. Chronic pain Patient is a history of drug use, high tolerance. Currently tachycardic, patient complaining of pain. Continue p.o. Dilaudid, IV pain meds for breakthrough pain. Giving a dose now, discussed with nurse, tachycardia possibly due to current complaints of pain. 5. Thrombocytopenia Likely secondary to hepatitis C. No current signs of bleeding. Hematology following the patient. 6. Adrenal insufficiency Blood sugars are stable. Pressure stable. Continue p.o. 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 Continue testosterone injections outpatient. 7. 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 Rudi Medina [phone]/ Soniya BREAUX [phone]). Previous J-tube placement. Hepatitis profile: + Hep C Ig ab US abdomen: Hepatosplenomegaly On Protonix 40 mg p.o. for GI prophylaxis Continue tube feeds via J-tube change to Suplena with goal rate 70ml/hr Patient cut his J-tube apparently accidentally, replaced. SCDs for DVT prophylaxis 9. History of bradycardia Patient with Medtronic pacer 10. Cut PEG tube The patient originally had PEG tube placed by thoracic surgeon, patient accidentally cut the tube on 07/26/2018. Interventional radiology was consulted by GI and PEG tube was replaced. Continue feeds through the PEG tube.
--- NOTE | 2018-08-05 17:48 | P.PNID ---
Subjective Remarks: Pt had fever of 102.9 on 08/02 pt spends a lot of time in BR with syringes seen cont to have drainage from the neck stoma c/o b/l forearms swelling, redness case was dw vasc access team - essentially he ran oput of veins, there only one vein left Antibiotics: vanco Past Medical History: Adrenal insufficiency Anxiety Bradycardia Compression fracture Difficult intubation Esophageal rupture Fistula History of MRSA infection Onset Date: ~06/30/18 Hypoglycemia Liver disease PTSD (post-traumatic stress disorder) Pacemaker Seizure TIA (transient ischemic attack) Allergies/Adverse Reactions: Allergies codeine Allergy (Severe, Verified 07/20/18 21:01) Hives tramadol Allergy (Severe, Verified 07/20/18 21:01) seizure cyclobenzaprine Allergy (Unknown, Verified 06/30/18 10:28) Unresponsive fluvoxamine Allergy (Unknown, Verified 06/30/18 10:28) Unresponsive zolpidem Allergy (Unknown, Verified 06/30/18 10:28) Unconscious Beta-Blockers (Beta-Adrenergic Bloc Allergy (Verified 06/30/18 10:28) Anaphylaxis MRI PRECAUTION Adverse Reaction (Severe, Uncoded 08/04/17 18:49) NON REVO PACEMAKER Objective Vital Signs 08/04/18 19:44 08/04/18 20:00 08/05/18 00:00 Temperature 98.2 F 98 F Pulse Rate 63 65 64 Respiratory Rate 16 15 Blood Pressure 143/91 H 133/71 Pulse Oximetry 100 96 08/05/18 03:17 08/05/18 03:53 08/05/18 08:00 Temperature 98 F 98.5 F Pulse Rate 91 H 96 H 101 H Respiratory Rate 18 17 Blood Pressure 177/93 H 137/81 Pulse Oximetry 100 100 08/05/18 12:00 08/05/18 16:00 Temperature 98.3 F 98.1 F Pulse Rate 92 H 81 Respiratory Rate 17 18 Blood Pressure 159/92 H 151/98 H Pulse Oximetry 99 100 Intake & Output 08/04/18 08/05/18 08/05/18 18:59 06:59 18:59 Intake Total 982.5 / 982.5 502.5 / 502.5 Output Total 750 / 750 Balance 232.5 / 232.5 502.5 / 502.5 Weight 73 kg Intake: IV 262.5 / 262.5 262.5 / 262.5 Vancomycin Inj 1,250 MG In NS 262.5 / 262.5 262.5 / 262.5 Inj 250 ML @ 250 mls/hr IV.SIG Q12H ISIAH Rx#:[id number] Oral 720 / 720 240 / 240 Output: Urine 750 / 750 Other: # Voids 3 Date of Last Bowel Movement 08/04/18 Lab - Hematology Results 08/05/18 11:12 WBC 2.3 L RBC 3.09 L Hgb 9.9 L Hct 29.8 L MCV 96.4 MCH 31.9 MCHC 33.1 RDW 16.8 Plt Count 116 L D MPV 8.9 Neut % (Auto) 73.4 H Lymph % (Auto) 16.9 [place] % (Auto) 9.2 H Eos % (Auto) 0.2 Baso % (Auto) 0.3 Neut # (Auto) 1.7 L Lymph # (Auto) 0.4 L [place] # (Auto) 0.2 Eos # (Auto) 0.0 Baso # (Auto) 0.0 WBC Differential . Differential Comment Auto diff final Lab - Chemistry Results 08/04/18 08/04/18 08/04/18 01:36 05:08 11:22 Sodium Potassium Chloride Carbon Dioxide Anion Gap BUN Creatinine Estimated GFR POC Glucose 170 H 80 133 H Random Glucose Calcium Magnesium 08/04/18 08/04/18 08/05/18 12:49 17:04 01:22 Sodium 139 Potassium 3.6 Chloride 104 Carbon Dioxide 30.1 Anion Gap 5 BUN 8 Creatinine 0.56 L Estimated GFR Greater than 89 POC Glucose 99 115 H Random Glucose 101 Calcium 8.0 L Magnesium 2.1 08/05/18 08/05/18 08/05/18 05:32 06:58 17:08 Sodium 143 Potassium 3.4 L Chloride 106 Carbon Dioxide 31.6 Anion Gap 5 BUN 7 Creatinine 0.42 L Estimated GFR Greater than 89 POC Glucose 97 88 Random Glucose 92 Calcium 8.4 L Magnesium 2.0 Imaging: ITS Impressions Abdomen Ultrasound 06/30/18 00:00 CONCLUSION: 1. The kidneys demonstrate increased echogenicity concerning for medical renal disease. 2. Hepatosplenomegaly. 3. Right pleural effusion. Cervical Spine CT 07/02/18 00:00 CONCLUSION: 1. No acute bony abnormalities within the cervical spine. No canal stenosis identified. 2. Soft tissue swelling of the left neck with small radiopaque foreign bodies in the subcutaneous tissues and locules of air, possibly related to fistulous tract. Thoracic Spine CT 07/02/18 00:00 CONCLUSION: 1. Mild kyphosis. 2. Mild loss of height of several lower thoracic vertebral bodies, stable. 3. No acute compression fracture. Head CT 07/02/18 14:12 CONCLUSION: 1. Stable negative noncontrast CT. . Head MRI 07/03/18 07:05 CONCLUSION: 1. Unremarkable MRI of the brain. Cervical Spine MRI 07/03/18 07:07 CONCLUSION: 1. Focal mild right lateral bulging at C5-6. 2. Otherwise, unremarkable exam for patient's age. Thoracic Spine MRI 07/03/18 07:07 CONCLUSION: 1. Mild broad-based bulging at T10-T11. 2. Mild disc space narrowing from T3 through T7. 3. Mild chronic loss of height of T9, T10 and T11. No abnormal bone marrow signal. Chest CT 07/04/18 00:00 CONCLUSION: 1. No evidence of Pancoast tumor as questioned. 2. Stable 4 mm nodule in the superior segment of the right lower lobe. Routine follow-up of sub-6 mm nodules is not recommended per 2017 Fleischner material. This nodule has been essentially stable for 18 months. 3. Small right and trace left simple appearing pleural effusions. Soft Tissue Neck CT 07/04/18 00:00 CONCLUSION: 1. I do not see evidence for esophageal rupture. Lumbar Puncture Fluoroscopy 07/08/18 00:00 CONCLUSION: Uncomplicated fluoroscopically guided lumbar puncture. Barium Swallow X-Ray 07/12/18 00:00 CONCLUSION: No evidence of penetration of the supraglottic larynx or tracheal aspiration with multiple swallows of thin barium. Tube Removal 07/22/18 18:36 CONCLUSION: 1. Uncomplicated Permcath removal. Catheter Placement 07/25/18 00:00 CONCLUSION: 1. Uncomplicated right IJ Vas-Cath placement as above. Chest X-Ray 07/28/18 00:00 CONCLUSION: No acute cardiopulmonary disease. Catheter Change 07/29/18 00:00 CONCLUSION: 1. Uncomplicated gastrostomy tube exchange as above. Physical Exam: GENERAL: NAD SKIN: Cool and dry. no rash HEAD: Atraumatic. Normocephalic. alopecia on L occipital gordon EYES: Pupils equal and round. No scleral icterus. No injection or drainage. ENT: No nasal bleeding or discharge. Mucous membranes pink and moist. NECK: Trachea midline. No JVD. Pouch with drainage on the L anterior neck with cloudy thick dc CARDIOVASCULAR: Regular rate and rhythm. RESPIRATORY: Clear to auscultation. Breath sounds equal bilaterally. GASTROINTESTINAL: Abdomen soft, non-tender, nondistended. Hepatic and splenic margins not palpable. MUSCULOSKELETAL: Extremities without clubbing, cyanosis, or edema. No obvious deformities. B/l forearms with swelling, redness, more prominent on the R forearm NEUROLOGICAL: Awake and alert. Normal speech. PSYCHIATRIC: calm Assessment and Plan - Plan Impression MRSA sepsis, S/P vascath removal Ent fecalis sepsis Neutropenia, recurrent, up after Neupogen Fevers, coinciding with his neutropenia GBS, on pheresis Esophageal rupture, has spit fistula L neck On going fevers ? IVDU ? phelbitis HIV neg/ HCV + Access issue Plan HIV negative Will consult IR for access in am (PICC vs Alvarenga) meanwhile will have him on zyvox instead of vanco [place] pharmacist: will dc trazadone, start melatonine rechk blood clx monitor fevers cont vanco thru 08/19 US forearms case was dw nursing, vasc access team, pharmacist and Dr Rodriguez
[2018-08-05] MEDS: Linezolid 600 MG Tablet PO SCH (21:51)
--- NOTE | 2018-08-05 22:14 | US ---
EXAM DATE: 08/05/2018 10:09 PM EST AGE/SEX: 32 years / Male INDICATIONS: Bilateral forearm swelling and redness. CLINICAL DATA: This is the patient's initial encounter. Patient reports that signs and symptoms have been present for 1 day and indicates a pain score of 7/10. MEDICAL/SURGICAL HISTORY: Transient ischemic attack. Seizures. Adrenal insufficiency. Anxiety . Bradycardia. Compression fracture. Esophageal rupture. MRSA (06/2018). Hypoglycemia. Liver di sease. PTSD. Status post spit fistula. Pacemaker. Esophagectomy - left neck. Previous J tube plac ement. COMPARISON: None. FINDINGS: Visualization is limited bilaterally secondary to Central line and bandages. Right Upper Extremity: Occlusive thrombus is seen in the distal right cephalic vein which is noncomp ressible. There is near the site of the prior intravenous line. The internal jugular, subclavian and axillary veins are fully patent. The brachial vein the cephalic vein are patent as well. Left Upper Extremity: There is occlusive thrombus in the left mid basilic vein and distal left cepha lic veins. Nonocclusive thrombus is noted in the mid cephalic vein. Internal jugular, subclavian and axillary veins are fully patent. The brachial vein is patent as well. Other: None. CONCLUSION: 1. Occlusive thrombus in the distal right cephalic vein at site of prior intravenous line. 2. Occlusive thrombus in the left mid basilic vein and distal left cephalic vein with nonocclusive t hrombus noted in the mid cephalic vein. Electronically signed by: Scott Ramírez MD Board Certified Radiologist 08/05/2018 10:13 PM EST
[2018-08-06] MEDS ORDERED: Pharmacy Ordered Lab Info OTHER ONE (00:45)
[2018-08-06] MEDS: Melatonin 5 MG Tablet PO PRN (01:03)
[2018-08-06] MEDS: Levothyroxine 75 MCG Tablet PO SCH (05:19)
[2018-08-06] MEDS: LORazepam 1 MG Tablet PO PRN ×3 (05:19→17:54)
[2018-08-06] MEDS: Pregabalin 25 MG Capsule PO SCH ×2 (08:13→22:04)
[2018-08-06] MEDS: Hydrocortisone 10 MG Tablet PO SCH ×3 (08:13→17:54)
[2018-08-06] MEDS: Gabapentin 300 MG Capsule PO SCH ×3 (08:13→17:54)
[2018-08-06] MEDS: Linezolid 600 MG Tablet PO SCH ×2 (08:13→22:03)
[2018-08-06] MEDS: levETIRAcetam 250 MG Tablet PO SCH ×2 (08:14→22:02)
--- NOTE | 2018-08-06 08:20 | P.PNIM ---
Subjective Interval history: Follow up on patient with Guillain [place] syndrome. Patient seen and examined. Patient complaining of severe pain in his back and legs. He continues to have weakness in the right ankle and foot but he states it has improved some since his admission. He denies any fever or chills. He denies any chest pain or dyspnea. Physical Exam Vital signs: Vital Signs 08/05/18 12:00 08/05/18 16:00 08/05/18 19:50 Temperature 98.3 F 98.1 F Pulse Rate 92 H 81 59 L Respiratory Rate 17 18 Blood Pressure 159/92 H 151/98 H Pulse Oximetry 99 100 08/05/18 20:00 08/06/18 00:00 08/06/18 04:00 Temperature 97.7 F 98.8 F 97.8 F Pulse Rate 72 69 66 Respiratory Rate 19 16 14 Blood Pressure 150/97 H 158/99 H 138/56 L Pulse Oximetry 97 95 98 Intake & Output 08/05/18 08/06/18 08/06/18 18:59 06:59 18:59 Intake Total 580 / 580 280 / 280 Output Total 1100 / 1100 Balance -520 / -520 280 / 280 Weight 70.9 kg Intake: Oral 580 / 580 280 / 280 Output: Urine 1100 / 1100 Other: # Voids 3 Date of Last Bowel Movement 08/05/18 # Bowel Movements 1 Narrative: GENERAL: Well developed well nourished male, INAD. Awake and alert. Tearful. SKIN: Warm and dry. Right sided Vas cath. HEENT: Atraumatic. Normocephalic. Pupils equal and round. No scleral icterus. No injection or drainage. No nasal bleeding or discharge. Mucous membranes pink and moist. NECK: Trachea midline. CARDIOVASCULAR: Regular rate and rhythm. RESPIRATORY: No accessory muscle use. Clear to auscultation. Breath sounds equal bilaterally. GASTROINTESTINAL: Abdomen soft, non-tender, nondistended. PEG site C/D/I. MUSCULOSKELETAL: Extremities without clubbing, cyanosis, or edema. No obvious deformities. NEUROLOGICAL: Awake and alert. No obvious cranial nerve deficits. Able to move all extremities spontaneously. Weak right ankle dorsi and plantar flexion. Normal speech. PSYCHIATRIC: Appropriate mood and affect; insight and judgment normal. Results Labs CBC & Chem 7: 08/06/18 16:01 08/07/18 10:32 Imaging Imaging: Impressions Venous Doppler Study 08/05/18 00:00 CONCLUSION: 1. Occlusive thrombus in the distal right cephalic vein at site of prior intravenous line. 2. Occlusive thrombus in the left mid basilic vein and distal left cephalic vein with nonocclusive thrombus noted in the mid cephalic vein. Procedures Procedures: 07/08 lumbar puncture 07/11 Vas-cath placement Assessment and Plan Plan 32-year-old male who presented with complaints of bilateral lower extremity weakness and was admitted for Guillain Julio syndrome. During that admission patient was found to have bacteremia with neutropenic fever. His Vas-Cath was removed. New Vas-Cath placed on 07/25/18. Patient is in the hospital receiving plasmapheresis. 1. Guillain-Julio syndrome Neurology followed patient s/p plasmapheresis. Neurology has signed off. Patient has received 6 of 7 treatments. Plasmapheresis 01/26 completed. 2. Neutropenia One febrile episode during the hospitalization. The patient has been afebrile for the past few days. WBC ct 2.3 today Oncology following the patient. As per documentation the patient had a prior bone marrow biopsy from [facility] which was nondiagnostic Neupogen started by hematology on 07/28 HIV screen negative 3. MRSA and Enterococcus Bacteremia patient is no longer febrile Cultures from 07/28 are negative Repeat BCX have been neg to date 07/21, 07/28 and 08/06 ID following, currently on Vancomycin and Zyvox Bilateral Upper extremity DVTs Doppler US - RUE +occlusive thrombus distal right cephalic vein. LUE + occlusive thrombus in the left mid basilic vein and distal left cephalic veins -Will defer treatment to Hem/onc 4. Chronic pain Patient is a history of drug use, high tolerance. Currently tachycardic, patient complaining of pain. Continue p.o. Dilaudid, IV pain meds for breakthrough pain. Order IM Morphine for breakthrough pain as patient has no IV access. 5. Thrombocytopenia Likely secondary to hepatitis C. No current signs of bleeding. Hematology following the patient. 6. Adrenal insufficiency Blood sugars are stable. Pressure stable. Continue p.o. 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 Continue testosterone injections outpatient. 7. 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 Rudi Medina [phone]/ Soniya BREAUX [phone]). Previous J-tube placement. Hepatitis profile: + Hep C Ig ab US abdomen: Hepatosplenomegaly On Protonix 40 mg p.o. for GI prophylaxis Continue tube feeds via J-tube change to [place] with goal rate 70ml/hr Patient cut his J-tube apparently accidentally, replaced. 9. History of bradycardia Patient with Medtronic pacer 10. Cut PEG tube The patient originally had PEG tube placed by thoracic surgeon, patient accidentally cut the tube on 07/26/2018. Interventional radiology was consulted by GI and PEG tube was replaced. Continue feeds through the PEG tube. DVT prophylaxis SCD/OMKAR maldonado Progress Note: Quality VTE Deep Vein Thrombosis/Pulmonary Embolism Present on Admission: No
[2018-08-06 09:54] LABS: Anion Gap 6 meq/L (5-15); Blood Urea Nitrogen 6 mg/dL (7-18); Calcium 8.3 mg/dL (8.5-10.1); Carbon Dioxide 31.7 meq/L (21.0-32.0); Chloride 104 meq/L (98-107); Glomerular Filtration Rate Greater Than 89 mL/min (>89); Glucose,Random 83 mg/dL (74-106); Magnesium 2.2 mg/dL (1.5-2.5); Potassium 3.4 meq/L (3.5-5.1); Sodium 142 meq/L (136-145)
--- NOTE | 2018-08-06 10:44 | P.PNONC ---
Subjective Interval history: Patient lying in bed, no acute distress. He reports continued pain. He states he has been unable to get his breakthrough pain medications due to having no IV access. He did receive his Dilaudid via J-tube this a.m. He feels his weakness has decreased. He is awaiting IR to place vascular access for continued IV antibiotics. He is requesting "a shot or something for the breakthrough pain" Objective Vital Signs/Intake & Output: Vital Signs 08/05/18 12:00 08/05/18 16:00 08/05/18 19:50 Temperature 98.3 F 98.1 F Pulse Rate 92 H 81 59 L Respiratory Rate 17 18 Blood Pressure 159/92 H 151/98 H Pulse Oximetry 99 100 08/05/18 20:00 08/06/18 00:00 08/06/18 04:00 Temperature 97.7 F 98.8 F 97.8 F Pulse Rate 72 69 66 Respiratory Rate 19 16 14 Blood Pressure 150/97 H 158/99 H 138/56 L Pulse Oximetry 97 95 98 08/06/18 08:00 Temperature 97.8 F Pulse Rate 70 Respiratory Rate 16 Blood Pressure 137/75 Pulse Oximetry 100 Intake & Output 08/05/18 08/06/18 08/06/18 18:59 06:59 18:59 Intake Total 580 / 580 280 / 280 Output Total 1100 / 1100 Balance -520 / -520 280 / 280 Weight 70.9 kg Intake: Oral 580 / 580 280 / 280 Output: Urine 1100 / 1100 Other: # Voids 3 Date of Last Bowel Movement 08/05/18 # Bowel Movements 1 Result Diagrams: 08/05/18 11:12 08/06/18 08:45 Laboratory Results: Laboratory Results - last 24 hr 08/05/18 08/05/18 08/05/18 11:12 17:08 23:25 WBC 2.3 L RBC 3.09 L Hgb 9.9 L Hct 29.8 L MCV 96.4 MCH 31.9 MCHC 33.1 RDW 16.8 Plt Count 116 L D MPV 8.9 Neut % (Auto) 73.4 H Lymph % (Auto) 16.9 [place] % (Auto) 9.2 H Eos % (Auto) 0.2 Baso % (Auto) 0.3 Neut # (Auto) 1.7 L Lymph # (Auto) 0.4 L [place] # (Auto) 0.2 Eos # (Auto) 0.0 Baso # (Auto) 0.0 WBC Differential . Differential Comment Auto diff final Sodium Potassium Chloride Carbon Dioxide Anion Gap BUN Creatinine Estimated GFR POC Glucose 88 118 H Random Glucose Calcium Magnesium 08/06/18 08/06/18 05:22 08:45 WBC RBC Hgb Hct MCV MCH MCHC RDW Plt Count MPV Neut % (Auto) Lymph % (Auto) [place] % (Auto) Eos % (Auto) Baso % (Auto) Neut # (Auto) Lymph # (Auto) [place] # (Auto) Eos # (Auto) Baso # (Auto) WBC Differential Differential Comment Sodium 142 Potassium 3.4 L Chloride 104 Carbon Dioxide 31.7 Anion Gap 6 BUN 6 L Creatinine 0.46 L Estimated GFR Greater than 89 POC Glucose 95 Random Glucose 83 Calcium 8.3 L Magnesium 2.2 Imaging Studies: Impressions Venous Doppler Study 08/05/18 00:00 CONCLUSION: 1. Occlusive thrombus in the distal right cephalic vein at site of prior intravenous line. 2. Occlusive thrombus in the left mid basilic vein and distal left cephalic vein with nonocclusive thrombus noted in the mid cephalic vein. Medications: Active Medications Generic Name Dose Route Start Last Admin Trade Name Freq PRN Reason Stop Dose Admin Acetaminophen 650 mg 07/18/18 22:53 08/02/18 08:23 Tylenol Liq PO 650 mg Q6H PRN Administration temp > 100.4 Al Hydroxide/Mg Hydroxide 30 ml 06/30/18 11:38 07/07/18 15:45 Milk Of Magnesia Liq PO 30 ml Q12H PRN Administration Mild Constipation Albuterol 1 ampul 06/30/18 11:38 07/13/18 04:13 Duoneb Neb (Prn) NEB 1 ampul Q2HR NEB PRN Administration WHEEZING Fentanyl 1 patch 07/03/18 13:15 08/05/18 12:14 Duragesic 25 Mcg Patch.72hr T-DERMAL 1 patch Q72H ISIAH Administration Gabapentin 900 mg 08/02/18 09:00 08/06/18 08:13 Neurontin PO 900 mg TID ISIAH Administration Heparin Sodium (Porcine) 0 unit 07/11/18 14:35 07/29/18 11:50 Heparin Central Flush IV.FLUSH 1,000 unit DAILY PRN Administration SEE DOSE INSTRUCTIONS Hydrocortisone Acetate 20 mg 08/04/18 21:00 08/06/18 08:13 Cortef PO 20 mg TID ISIAH Administration Hydromorphone HCl 8 mg 07/25/18 15:46 08/06/18 06:57 Dilaudid PO 8 mg Q4H PRN Administration Acute Pain 1 to 10 Hydromorphone HCl 1 mg 07/27/18 16:44 08/05/18 10:25 Dilaudid Pf Inj IV.PUSH 1 mg Q4H PRN Administration BREAKTHROUGH PAIN Vancomycin HCl 1,250 mg/ 262.5 mls @ 250 mls/hr 08/01/18 01:00 08/05/18 17:49 Sodium Chloride IV.SIG Not Given Q12H ISIAH Lactulose 30 ml 06/30/18 11:38 07/19/18 09:15 Lactulose Liq PO 30 ml DAILY PRN Administration SEVERE CONSITIPATION Levetiracetam 750 mg 07/03/18 21:00 08/06/18 08:14 Keppra PO 750 mg BID ISIAH Administration Levothyroxine Sodium 75 mcg 07/04/18 06:00 08/06/18 05:19 Synthroid PO 75 mcg DAILY@0600 ISIAH Administration Linezolid 600 mg 08/05/18 21:00 08/06/18 08:13 Zyvox PO 600 mg BID ISIAH Administration Lorazepam 1 mg 07/28/18 00:01 08/06/18 05:19 Ativan PO 1 mg Q6H PRN Administration ANXIETY Melatonin 5 mg 08/05/18 17:45 08/06/18 01:03 Melatonin PO 5 mg HS PRN Administration INSOMNIA Pantoprazole Sodium 40 mg 07/07/18 09:00 08/06/18 08:13 Protonix PO 40 mg DAILY ISIAH Administration Patch Removal 1 each 07/03/18 13:00 08/05/18 12:11 Remove Old Patch T-DERMAL 1 each Q72H ISIAH Administration Patch Removal 1 each 07/03/18 13:00 08/05/18 12:11 Remove Old Patch T-DERMAL 1 each Q72H ISIAH Administration Pregabalin 25 mg 08/02/18 21:00 08/06/18 08:13 Lyrica PO 25 mg BID ISIAH Administration Quetiapine Fumarate 400 mg 07/03/18 21:00 12/12/18 21:19 Seroquel PO Not Given BID ISIAH Sodium Chloride 2 ml 06/30/18 09:58 08/05/18 01:22 Ns Flush IV.FLUSH 2 ml PRN PRN Administration FLUSH AFTER USING IV ACCESS Tizanidine HCl 4 mg 07/23/18 01:00 08/06/18 06:57 Zanaflex PO 4 mg Q6H PRN Administration MUSCLE SPASM Objective Remarks: GENERAL: Chronically ill-appearing young male patient, in no acute distress. SKIN: Warm and dry. HEAD: Normocephalic. EYES: No scleral icterus. No injection or drainage. NECK: Supple, trachea midline. Vas-Cath to right neck, drsg dry/intact. Collection bag to left neck. CARDIOVASCULAR: Normal rate and rhythm. RESPIRATORY: Posterior breath sounds clear, equal bilaterally. Nonlabored. On room air. GASTROINTESTINAL: Abdomen non-tender, nondistended. +J-tube. EXTREMITIES: No cyanosis, or edema. MUSCULOSKELETAL: Decreased muscle tone. NEUROLOGICAL: No obvious focal deficit. Awake, alert, and oriented x3. PSYCHIATRIC: Appropriate mood and affect; insight and judgment normal. 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 Oncology consulted for further recommendations. 1. Guillan [place] syndrome syndrome: followed by neurology. Received 01/26 plasmapheresis. 2. Neutropenia coincides with plasmapheresis, continues to improve. 3. Bacteremia, infectious disease following for positive blood cultures on . Management per infectious disease. 4. Pain management per attending. 5. Recommend removing Vas-Cath as neurologist has recommended no further plasmapheresis. - Attending Statement Pt seen in rm [id number]. In much better spirits; pain well controlled. Undergoing PT. No complaints. Labs ordered - CBC and se quanti IGs. Remains afebrile; no evidence of infection. Improving generally. Continue current care. Will check labs and f/u.
--- NOTE | 2018-08-06 10:57 | P.PNADD ---
Addendum to Inpatient Note Additional information: dw IR will go with PICC upper extremety neck lines too risky in this pt - per IR
--- NOTE | 2018-08-06 12:06 | P.DIET ---
Nutritional Evaluation Type of nutrition evaluation: follow-up (TF FU) Nutrition consult regarding: Tube Feeding Nutrition screening: MDC (TF'ing) Screening comments: 06/30 [facility] [place] Objective - Diagnosis ARF, PNA, AMS, Rhabodomylosis - Objective [place] body weight: 62 kg % IBW: 130 (IBW = 136lb) Body Weight Used for Calculations: Actual (66.9kg (admission weight)) Energy Needs - Lower Range (kCal/kg): 28 Energy Needs - Upper Range (kCal/kg): 32 Lower Limit kCal/kg (kCals): 2,072 Upper Limit kCal/kg (kCals): 2,368 Lower Limit Protein Factor (Grams per Kg): 1.2 Upper Limit Protein Factor (Grams per Kg): 1.5 Lower Protein Needs (Protein): 88 Upper Protein Needs (Protein): 111 Dietitian Reviewed in Medical Record: Curent medications, Intake & Output, Labs , Medical history, Tube feeding Diet Order: TF'ing plus pureed tray Speech Therapy Recommendations: No Objective Comments: PMH: Boorhaave Syndrome, esophageal ostomy to neck bag, TIA, PTSD, PPM Labs: nutritionally unremarkable Medications; reviewed Feeding - Current Tube Feeding Tube Feeding Product: Jevity 1.5 Tube Feeding Method: Pump (Jevity 1.5ml running at 60ml/hour) Assessment Assessment: FU TF; Pt currently ordered for TF of Jevity 1.5 running at 60ml per hour to provide 2160kcal, 92g protein and 1094ml free water. Additionally receiving pureed tray for pleasure eating. At this time pt is tolerating formula well without any issues. Spoke with pt's mother again today who was concerned about hydration in which I explained that the TF alone provides 1094ml free water and he receives water flushes before and after medications, and gives himself free water flushes 2x daily of 500ml for a total of roughly slightly more than 2000ml which is adequately meeting his fluid needs per RD. Mother was understanding after explanation and her concerns were settled. At this time recommend to continue with current POC as pt is stable from a nutrition standpoint. Will continue to monitor clinical course. Recommendations: 1.Continue with current TF order 2. Continue to monitor tolerance to TF 3. Continue to monitor weight 4. Continue to monitor labs Dietitian to Monitor: Lab values, Renal labs, Intake & Output, Tube feeding tolerance, Weight change
[2018-08-06 17:05] LABS: Baso % (Auto) 0.5 % (0.0-2.0); Eos % (Auto) 0.3 % (0.0-4.0); Hematocrit 25.2 % (39.0-51.0); Hemoglobin 8.8 gm/dL (13.0-17.0); Lymph # (Auto) 0.4 th/mm3 (1.0-4.8); Lymph % (Auto) 19.7 % (9.0-44.0); Mean Corpuscular HGB Conc 34.8 % (32.0-36.0); Mean Corpuscular Hemoglobin 32.5 pg (27.0-34.0); Mean Corpuscular Volume 93.5 fL (80.0-100.0); Mono # (Auto) 0.1 th/mm3 (0.0-0.9); Mono % (Auto) 5.5 % (0.0-8.0); Neut # (Auto) 1.4 th/mm3 (1.8-7.7); Platelet Count 115 th/mm3 (150-450); Red Cell Distribution Width 16.7 % (11.6-17.2); White Blood Count 1.8 th/mm3 (4.0-11.0)
[2018-08-06 17:36] LABS: Immunoglobulin A 194 mg/dL (80-441); Immunoglobulin G 1520 mg/dL (650-1600)
[2018-08-06 17:46] LABS: Immunoglobulin M 239 mg/dL (43-265)
[2018-08-06] MEDS: Morphine Inj 4 MG/ML Vial IM PRN (17:51)
[2018-08-06 18:50] LABS: Lymphocytes 20 % (9-44)
[2018-08-06 18:53] LABS: Ovalocytes 1+; Platelet Morphology Normal (Normal); Tear Drop Cells 1+
[2018-08-07] MEDS: Morphine Inj 4 MG/ML Vial IM PRN ×5 (00:24→21:57)
[2018-08-07] MEDS: Melatonin 5 MG Tablet PO PRN ×2 (00:57→22:16)
[2018-08-07] MEDS: LORazepam 1 MG Tablet PO PRN ×3 (00:57→16:49)
[2018-08-07] MEDS: Levothyroxine 75 MCG Tablet PO SCH (06:04)
--- NOTE | 2018-08-07 09:15 | P.PNONC ---
Subjective Interval history: Afebrile. Patient sitting up in bed, he reports continued pain. He states that he is frustrated that he is still in so much pain and feels like a broken record. He suggests increasing his pain patch and then lengthening the time for the as needed breakthrough pain medications. I have deferred him to discusss his pain medications with the attending, whom has been managing. Objective Vital Signs/Intake & Output: Vital Signs 08/06/18 12:00 08/06/18 16:00 08/06/18 18:00 Temperature 98.0 F 98.0 F 98.0 F Pulse Rate 68 71 72 Respiratory Rate 16 16 16 Blood Pressure 134/97 H 155/90 H 155/90 H Pulse Oximetry 100 100 100 08/06/18 20:00 08/07/18 00:00 08/07/18 04:00 Temperature 97.8 F 98.2 F 97.4 F L Pulse Rate 59 L 80 60 Respiratory Rate 17 17 17 Blood Pressure 152/93 H 147/91 H 139/86 Pulse Oximetry 97 97 100 08/07/18 08:00 Temperature 98.1 F Pulse Rate 65 Respiratory Rate 18 Blood Pressure 157/83 H Pulse Oximetry 100 Intake & Output 08/06/18 08/07/18 08/07/18 18:59 06:59 18:59 Intake Total 720 / 720 Balance 720 / 720 Weight 67.8 kg Intake: Oral 720 / 720 Other: Date of Last Bowel Movement 08/06/18 # Bowel Movements 0 Result Diagrams: 08/06/18 16:01 08/06/18 08:45 Laboratory Results: Laboratory Results - last 24 hr 08/06/18 08/06/18 08/06/18 08:45 12:28 16:01 WBC 1.8 L RBC 2.70 L Hgb 8.8 L Hct 25.2 L MCV 93.5 MCH 32.5 MCHC 34.8 RDW 16.7 Plt Count 115 L MPV 9.0 Prelim Diff (Auto) Slide review pending Neut % (Auto) 74.0 H Lymph % (Auto) 19.7 [place] % (Auto) 5.5 Eos % (Auto) 0.3 Baso % (Auto) 0.5 Neut # (Auto) 1.4 L Lymph # (Auto) 0.4 L [place] # (Auto) 0.1 Eos # (Auto) 0.0 Baso # (Auto) 0.0 WBC Differential Manual diff final Seg Neuts % (Manual) 80 H Lymphocytes % (Manual) 20 Abs Neuts (Manual) 1.4 L Differential Comment . Platelet Estimate Low L Platelet Morphology Normal Tear Drop Cells 1+ H Ovalocytes 1+ H Keratocytes Occ H Sodium 142 Potassium 3.4 L Chloride 104 Carbon Dioxide 31.7 Anion Gap 6 BUN 6 L Creatinine 0.46 L Estimated GFR Greater than 89 POC Glucose 104 Random Glucose 83 Calcium 8.3 L Magnesium 2.2 IgG IgA IgM 08/06/18 08/06/18 08/06/18 16:01 17:10 22:12 WBC RBC Hgb Hct MCV MCH MCHC RDW Plt Count MPV Prelim Diff (Auto) Neut % (Auto) Lymph % (Auto) [place] % (Auto) Eos % (Auto) Baso % (Auto) Neut # (Auto) Lymph # (Auto) [place] # (Auto) Eos # (Auto) Baso # (Auto) WBC Differential Seg Neuts % (Manual) Lymphocytes % (Manual) Abs Neuts (Manual) Differential Comment Platelet Estimate Platelet Morphology Tear Drop Cells Ovalocytes Keratocytes Sodium Potassium Chloride Carbon Dioxide Anion Gap BUN Creatinine Estimated GFR POC Glucose 135 H 98 Random Glucose Calcium Magnesium IgG 1520 IgA 194 IgM 239 08/07/18 06:07 WBC RBC Hgb Hct MCV MCH MCHC RDW Plt Count MPV Prelim Diff (Auto) Neut % (Auto) Lymph % (Auto) [place] % (Auto) Eos % (Auto) Baso % (Auto) Neut # (Auto) Lymph # (Auto) [place] # (Auto) Eos # (Auto) Baso # (Auto) WBC Differential Seg Neuts % (Manual) Lymphocytes % (Manual) Abs Neuts (Manual) Differential Comment Platelet Estimate Platelet Morphology Tear Drop Cells Ovalocytes Keratocytes Sodium Potassium Chloride Carbon Dioxide Anion Gap BUN Creatinine Estimated GFR POC Glucose 88 Random Glucose Calcium Magnesium IgG IgA IgM Medications: Active Medications Generic Name Dose Route Start Last Admin Trade Name Freq PRN Reason Stop Dose Admin Acetaminophen 650 mg 07/18/18 22:53 08/02/18 08:23 Tylenol Liq PO 650 mg Q6H PRN Administration temp > 100.4 Al Hydroxide/Mg Hydroxide 30 ml 06/30/18 11:38 07/07/18 15:45 Milk Of Magnesia Liq PO 30 ml Q12H PRN Administration Mild Constipation Albuterol 1 ampul 06/30/18 11:38 07/13/18 04:13 Duoneb Neb (Prn) NEB 1 ampul Q2HR NEB PRN Administration WHEEZING Fentanyl 1 patch 07/03/18 13:15 08/05/18 12:14 Duragesic 25 Mcg Patch.72hr T-DERMAL 1 patch Q72H ISIAH Administration Gabapentin 900 mg 08/02/18 09:00 08/06/18 17:54 Neurontin PO 900 mg TID ISIAH Administration Heparin Sodium (Porcine) 0 unit 07/11/18 14:35 07/29/18 11:50 Heparin Central Flush IV.FLUSH 1,000 unit DAILY PRN Administration SEE DOSE INSTRUCTIONS Hydrocortisone Acetate 20 mg 08/04/18 21:00 08/06/18 17:54 Cortef PO 20 mg TID ISIAH Administration Hydromorphone HCl 8 mg 07/25/18 15:46 08/07/18 03:53 Dilaudid PO 8 mg Q4H PRN Administration Acute Pain 1 to 10 Hydromorphone HCl 1 mg 07/27/18 16:44 08/05/18 10:25 Dilaudid Pf Inj IV.PUSH 1 mg Q4H PRN Administration BREAKTHROUGH PAIN Vancomycin HCl 1,250 mg/ 262.5 mls @ 250 mls/hr 08/01/18 01:00 08/05/18 17:49 Sodium Chloride IV.SIG Not Given Q12H [facility] Lactulose 30 ml 06/30/18 11:38 07/19/18 09:15 Lactulose Liq PO 30 ml DAILY PRN Administration SEVERE CONSITIPATION Levetiracetam 750 mg 07/03/18 21:00 08/06/18 22:02 Keppra PO 750 mg BID ISIAH Administration Levothyroxine Sodium 75 mcg 07/04/18 06:00 08/07/18 06:04 Synthroid PO 75 mcg DAILY@0600 ISIAH Administration Linezolid 600 mg 08/05/18 21:00 08/06/18 22:03 Zyvox PO 600 mg BID ISIAH Administration Lorazepam 1 mg 07/28/18 00:01 08/07/18 08:15 Ativan PO 1 mg Q6H PRN Administration ANXIETY Melatonin 5 mg 08/05/18 17:45 08/07/18 00:57 Melatonin PO 5 mg HS PRN Administration INSOMNIA Morphine Sulfate 2 mg 08/06/18 15:28 08/07/18 06:04 Morphine Inj IM 2 mg Q4H PRN Administration BREAKTHROUGH PAIN Pantoprazole Sodium 40 mg 07/07/18 09:00 08/06/18 08:13 Protonix PO 40 mg DAILY ISIAH Administration Patch Removal 1 each 07/03/18 13:00 08/05/18 12:11 Remove Old Patch T-DERMAL 1 each Q72H ISIAH Administration Patch Removal 1 each 07/03/18 13:00 08/05/18 12:11 Remove Old Patch T-DERMAL 1 each Q72H ISIAH Administration Pregabalin 25 mg 08/02/18 21:00 08/06/18 22:04 Lyrica PO 25 mg BID ISIAH Administration Quetiapine Fumarate 400 mg 07/03/18 21:00 07/03/18 21:19 Seroquel PO Not Given BID ISIAH Sodium Chloride 2 ml 06/30/18 09:58 08/05/18 01:22 Ns Flush IV.FLUSH 2 ml PRN PRN Administration FLUSH AFTER USING IV ACCESS Tizanidine HCl 4 mg 07/23/18 01:00 08/07/18 08:14 Zanaflex PO 4 mg Q6H PRN Administration MUSCLE SPASM Objective Remarks: GENERAL: Chronically ill-appearing young male patient, in no acute distress. SKIN: Warm and dry. HEAD: Normocephalic. EYES: No scleral icterus. No injection or drainage. NECK: Supple, trachea midline. Vas-Cath to right neck, drsg dry/intact. Collection bag to left neck. CARDIOVASCULAR: Normal rate and rhythm. RESPIRATORY: Posterior breath sounds clear, equal bilaterally. Nonlabored. GASTROINTESTINAL: Abdomen soft, non-tender, nondistended. +J-tube. EXTREMITIES: No cyanosis, or edema. MUSCULOSKELETAL: Decreased muscle tone. NEUROLOGICAL: No obvious focal deficit. Awake, alert, and oriented x3. PSYCHIATRIC: Appropriate mood and affect; insight and judgment normal. 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 Oncology consulted for further recommendations. 1. Guillain [place] Syndrome: Management per neurology. Pt received 01/26 plasmapheresis. 2. Neutropenia coincides with plasmapheresis, continues to improve. 3. Bacteremia, infectious disease following for positive blood cultures on . Management per infectious disease. 4. Hypogammaglobulinemia, s/p IVIG, repeat IgG, IgA within normal limits. 5. Pain management per attending. 6. Remove Vas-Cath, as neurologist has recommended no further plasmapheresis.
[2018-08-07] MEDS: Linezolid 600 MG Tablet PO SCH ×2 (10:07→21:56)
[2018-08-07] MEDS: Gabapentin 300 MG Capsule PO SCH ×3 (10:07→17:00)
[2018-08-07] MEDS: levETIRAcetam 250 MG Tablet PO SCH ×2 (10:07→21:56)
[2018-08-07] MEDS: Pregabalin 25 MG Capsule PO SCH (10:07)
[2018-08-07] MEDS: Hydrocortisone 10 MG Tablet PO SCH ×3 (10:07→17:00)
[2018-08-07 10:56] LABS: Anion Gap 7 meq/L (5-15); Blood Urea Nitrogen 6 mg/dL (7-18); Calcium 8.7 mg/dL (8.5-10.1); Carbon Dioxide 32.1 meq/L (21.0-32.0); Chloride 102 meq/L (98-107); Glomerular Filtration Rate Greater Than 89 mL/min (>89); Glucose,Random 76 mg/dL (74-106); Potassium 3.1 meq/L (3.5-5.1); Sodium 141 meq/L (136-145)
[2018-08-07] MEDS: amLODIPine 5 MG Tablet G-TUBE SCH (15:00)
--- NOTE | 2018-08-07 15:10 | P.PNIM ---
Subjective Interval history: Follow-up on patient again bradycardia. Patient seen and examined. Patient continues to complain of poorly controlled pain. Patient was previously on morphine IR 15 mg 4 times a day. He is asking if his fentanyl patch can be increased. He complains of increased pain and weakness in lower extremities as well as numbness and tingling in the hands and perioral numbness. He denies any fever or chills. He denies any chest pain or shortness of breath. He denies any nausea, vomiting or abdominal pain. Physical Exam Vital signs: Vital Signs 08/06/18 16:00 08/06/18 18:00 08/06/18 20:00 Temperature 98.0 F 98.0 F 97.8 F Pulse Rate 71 72 59 L Respiratory Rate 16 16 17 Blood Pressure 155/90 H 155/90 H 152/93 H Pulse Oximetry 100 100 97 08/07/18 00:00 08/07/18 04:00 08/07/18 08:00 Temperature 98.2 F 97.4 F L 98.1 F Pulse Rate 80 60 74 Respiratory Rate 17 17 18 Blood Pressure 147/91 H 139/86 157/83 H Pulse Oximetry 97 100 100 08/07/18 12:00 Temperature 97.8 F Pulse Rate 75 Respiratory Rate 18 Blood Pressure 153/100 H Pulse Oximetry 100 Intake & Output 08/06/18 08/07/18 08/07/18 18:59 06:59 18:59 Intake Total 720 / 720 Balance 720 / 720 Weight 67.8 kg Intake: Oral 720 / 720 Other: Date of Last Bowel Movement 08/06/18 08/06/18 # Bowel Movements 0 Narrative: GENERAL: Well developed well nourished male, INAD. Awake and alert. Appears comfortable sitting crosslegged on bed. SKIN: Warm and dry. Right sided Vas cath. HEENT: Atraumatic. Normocephalic. Pupils equal and round. No scleral icterus. No injection or drainage. No nasal bleeding or discharge. Mucous membranes pink and moist. NECK: Trachea midline. Collection bag over left neck s/p split fistula. CARDIOVASCULAR: Regular rate and rhythm. RESPIRATORY: No accessory muscle use. Clear to auscultation. Breath sounds equal bilaterally. GASTROINTESTINAL: Abdomen soft, non-tender, nondistended. PEG site C/D/I. MUSCULOSKELETAL: Extremities without clubbing, cyanosis, or edema. No obvious deformities. NEUROLOGICAL: Awake and alert. No obvious cranial nerve deficits. Able to move all extremities spontaneously. Weak right ankle dorsi and plantar flexion. Normal speech. PSYCHIATRIC: Calm and cooperative. Results Labs CBC & Chem 7: 08/06/18 16:01 08/07/18 10:32 Labs: Microbiology 08/06/18 06:55 Blood - Peripheral Aerobic Blood Culture - Preliminary No growth in 1 day 08/06/18 06:55 Blood - Peripheral Anaerobic Blood Culture - Preliminary No growth in 1 day 08/06/18 06:50 Blood - Peripheral Aerobic Blood Culture - Preliminary No growth in 1 day 08/06/18 06:50 Blood - Peripheral Anaerobic Blood Culture - Preliminary No growth in 1 day Procedures Procedures: 07/08 lumbar puncture 07/11 Vas-cath placement Assessment and Plan Plan 32-year-old male who presented with complaints of bilateral lower extremity weakness and was admitted for Guillain Julio syndrome. During that admission patient was found to have bacteremia with neutropenic fever. His Vas-Cath was removed. New Vas-Cath placed on 07/25/18. Patient is in the hospital receiving plasmapheresis. Guillain-Julio syndrome Neurology followed patient s/p plasmapheresis. Neurology has signed off. 08/07 patient complaining of increasing pain and weakness in bilateral lower extremities, numbness and tingling in bilateral hands and perioral numbness. Notified Dr. Jones who is agreeable to reevaluating patient, greatly appreciate assistance. Dr. Jones also suggested that patient may benefit from transfer to [facility]. Discussed with case management referral to neurology department and Dr. Jones's number provided to speak with neurologist at another facility. Patient has received 6 of 7 treatments. Plasmapheresis 01/26 completed. Neutropenia Multiple febrile episodes during the hospitalization. The patient has been afebrile for the past few days. WBC count labile, 1.8 today Oncology following, appreciate assistance As per documentation the patient had a prior bone marrow biopsy from [facility] which was nondiagnostic Neupogen started by hematology on 07/28 HIV screen negative -Continue to monitor CBC as indicated MRSA and Enterococcus Bacteremia Repeat BCX have been neg to date 07/21, 07/28 and 08/06 patient is no longer febrile ID following, currently on Zyvox. Plan for IV Vanco until 08/19, currently no IV access. Patient not had a Vanco dose since 08/05. DW Dr. Lopez who will place IR consult for vascular access as patient has no option for peripheral access. Hypertension -start on Norvasc 5mg daily -Continue to monitor BP and adjust treatment accordingly Bilateral Upper extremity DVTs Doppler US - RUE +occlusive thrombus distal right cephalic vein. LUE + occlusive thrombus in the left mid basilic vein and distal left cephalic veins -DW Hem/onc, possibly chronic, no specific tx indicated at this time Chronic pain Patient with a history of drug use, high tolerance. Complaining of poorly controlled pain, requesting his Fentanyl patch be increased. EForsced verified - patient on Morphine IR 15mg QID and Fentanyl 12mcg patch both filled 06/23/18. Patient does not feel that Dilaudid is helping. Also states that I am morphine is not helping. He would like to resume previous IR Morphine. Of note, patient's fentanyl patch was 12mcg as outpatient and he has been on 25mcg patch here in the hospital. -Discontinue p.o. Dilaudid. Resume p.o. IR morphine per home dose. Continue on IM Morphine prn as patient has no IV access at this time. Thrombocytopenia Likely secondary to hepatitis C. No current signs of bleeding. -Hematology following the patient Adrenal insufficiency Patient outpatient flag signaler Dr. Ornelas . Blood sugars are stable. Pressure stable. -Continue p.o. hydrocortisone -Continue testosterone injections outpatient. 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 Rudi Medina [phone]/ Soniya BREAUX [phone]). Previous J-tube placement. Hepatitis profile: + Hep C Ig ab US abdomen: Hepatosplenomegaly Patient cut his J-tube apparently accidentally on 07/26/18, IR was consulted and replaced. -Continue tube feeds via J-tube change to [place] with goal rate 70ml/hr -Continue on Protonix for GI prophylaxis History of bradycardia Patient with Marxent Labstronic pacer -monitor Hypokalemia -repletion ordered -repeat BMP in am to monitor response DVT prophylaxis SCD/OMKAR hose Progress Note: Quality VTE Deep Vein Thrombosis/Pulmonary Embolism Present on Admission: No
[2018-08-07] MEDS ORDERED: Morphine Sulfate 15 MG IR Tablet G-TUBE PRN (16:28)
[2018-08-07] MEDS ORDERED: Potassium Chloride 25 MEQ Effervescent Tablet PO ONE (17:00)
[2018-08-07 17:43] LABS: Baso % (Auto) 0.3 % (0.0-2.0); Eos % (Auto) 0.3 % (0.0-4.0); Hematocrit 28.2 % (39.0-51.0); Hemoglobin 9.4 gm/dL (13.0-17.0); Lymph # (Auto) 0.5 th/mm3 (1.0-4.8); Lymph % (Auto) 25.5 % (9.0-44.0); Mean Corpuscular HGB Conc 33.3 % (32.0-36.0); Mean Corpuscular Hemoglobin 30.9 pg (27.0-34.0); Mean Platelet Volume 8.6 fL (7.0-11.0); Mono # (Auto) 0.1 th/mm3 (0.0-0.9); Mono % (Auto) 4.6 % (0.0-8.0); Neut # (Auto) 1.4 th/mm3 (1.8-7.7); Neut % (Auto) 69.3 % (16.0-70.0); Platelet Count 157 th/mm3 (150-450); Red Blood Count 3.04 mil/mm3 (4.50-5.90); Red Cell Distribution Width 16.9 % (11.6-17.2)
[2018-08-07 17:45] VITALS: RESP 18
[2018-08-07] MEDS ORDERED: Morphine Sulfate 15 MG IR Tablet PO ONE (19:00)
--- NOTE | 2018-08-07 19:51 | P.PNNEU ---
Subjective Subjective Comments: Patient reports he is getting weaker. He felt definite improvement in strength with plasmapheresis, but it was interrupted due to pancytopenia. He also reports increase in diffuse pain and pain in feet and hands. He has distal numbness Active Medications: Active Medications Acetaminophen (Tylenol Liq) 650 mg PO Q6H PRN PRN Reason: temp > 100.4 Last Admin: 08/02/18 08:23 Dose: 650 mg Al Hydroxide/Mg Hydroxide (Milk Of Magnesia Liq) 30 ml PO Q12H PRN PRN Reason: Mild Constipation Last Admin: 07/07/18 15:45 Dose: 30 ml Albuterol (Duoneb Neb (Prn)) 1 ampul NEB Q2HR NEB PRN PRN Reason: WHEEZING Last Admin: 07/13/18 04:13 Dose: 1 ampul Amlodipine Besylate (Norvasc) 5 mg G-TUBE DAILY [facility] Last Admin: 08/07/18 15:00 Dose: 5 mg Bisacodyl (Dulcolax Supp) 10 mg RECTAL DAILY PRN PRN Reason: SEVERE CONSITIPATION Clonidine HCl (Catapres) 0.1 mg G-TUBE Q6H PRN PRN Reason: SBP>180, DBP>95 Fentanyl (Duragesic 25 Mcg Patch.72hr) 1 patch T-DERMAL Q72H [facility] Last Admin: 08/05/18 12:14 Dose: 1 patch Gabapentin (Neurontin) 900 mg PO TID [facility] Last Admin: 08/07/18 17:00 Dose: 900 mg Heparin Sodium (Porcine) (Heparin Central Flush) 0 unit IV.FLUSH DAILY PRN PRN Reason: SEE DOSE INSTRUCTIONS Last Admin: 07/29/18 11:50 Dose: 1,000 unit Heparin Sodium (Porcine) (Heparin Inj) 1,000 units IV.FLUSH UNSCH PRN PRN Reason: FLUSH AFTER USING IV ACCESS Hydrocortisone Acetate (Cortef) 20 mg PO TID [facility] Last Admin: 08/07/18 17:00 Dose: 20 mg Hydromorphone HCl (Dilaudid Pf Inj) 1 mg IV.PUSH Q4H PRN PRN Reason: BREAKTHROUGH PAIN Last Admin: 08/05/18 10:25 Dose: 1 mg Vancomycin HCl 1,250 mg/ (Sodium Chloride) 262.5 mls @ 250 mls/hr IV.SIG Q12H [facility] Last Admin: 08/05/18 17:49 Dose: Not Given Immune Globulin 25 gm/ (Miscellaneous Medication) 250 mls @ 31.25 mls/hr IV.SIG Q24HR [facility] Lactulose (Lactulose Liq) 30 ml PO DAILY PRN PRN Reason: SEVERE CONSITIPATION Last Admin: 07/19/18 09:15 Dose: 30 ml Levetiracetam (Keppra) 750 mg PO BID [facility] Last Admin: 08/07/18 10:07 Dose: 750 mg Levothyroxine Sodium (Synthroid) 75 mcg PO DAILY@0600 [facility] Last Admin: 08/07/18 06:04 Dose: 75 mcg Linezolid (Zyvox) 600 mg PO BID [facility] Last Admin: 08/07/18 10:07 Dose: 600 mg Lorazepam (Ativan) 1 mg PO Q6H PRN PRN Reason: ANXIETY Last Admin: 08/07/18 16:49 Dose: 1 mg Melatonin (Melatonin) 5 mg PO HS PRN PRN Reason: INSOMNIA Last Admin: 08/07/18 00:57 Dose: 5 mg Morphine Sulfate (Morphine Inj) 2 mg IM Q4H PRN PRN Reason: BREAKTHROUGH PAIN Last Admin: 08/07/18 16:48 Dose: 2 mg Morphine Sulfate (Msir) 15 mg G-TUBE Q6H PRN PRN Reason: Acute Pain 1-5 Naloxone HCl (Narcan Inj) 0.4 mg IV.PUSH Q2M PRN PRN Reason: SEDATION Pantoprazole Sodium (Protonix) 40 mg PO DAILY [facility] Last Admin: 08/07/18 10:07 Dose: 40 mg Patch Removal (Remove Old Patch) 1 each T-DERMAL Q72H [facility] Last Admin: 08/05/18 12:11 Dose: 1 each Patch Removal (Remove Old Patch) 1 each T-DERMAL Q72H [facility] Last Admin: 08/05/18 12:11 Dose: 1 each Pharmacy Profile Note (Vancomycin Consult Pharmacy) 1 each OTHER UNSCH PRN PRN Reason: Pharmacy to dose Pregabalin (Lyrica) 25 mg PO BID [facility] Last Admin: 08/07/18 10:07 Dose: 25 mg Quetiapine Fumarate (Seroquel) 400 mg PO BID [facility] Last Admin: 07/03/18 21:19 Dose: Not Given Sennosides (Senokot) 17.2 mg PO Q12H PRN PRN Reason: Moderate Constipation Sodium Chloride (Ns Flush) 2 ml IV.FLUSH PRN PRN PRN Reason: FLUSH AFTER USING IV ACCESS Last Admin: 08/05/18 01:22 Dose: 2 ml Sodium Chloride (Ns Flush) 0 ml IV.FLUSH PRN PRN PRN Reason: SEE DOSE INSTRUCTIONS Sodium Chloride (Ns Flush) 10 ml IV.FLUSH UNSCH PRN PRN Reason: FLUSH AFTER USING IV ACCESS Tizanidine HCl (Zanaflex) 4 mg PO Q6H PRN PRN Reason: MUSCLE SPASM Last Admin: 08/07/18 14:39 Dose: 4 mg Allergies/Adverse Reactions: Allergies Allergy/AdvReac Type Severity Reaction Status Date / Time codeine Allergy Severe Hives Verified 07/20/18 21:01 tramadol Allergy Severe seizure Verified 07/20/18 21:01 cyclobenzaprine Allergy Unknown Unresponsiv Verified 06/30/18 10:28 e fluvoxamine Allergy Unknown Unresponsiv Verified 06/30/18 10:28 e zolpidem Allergy Unknown Unconscious Verified 06/30/18 10:28 Beta-Blockers Allergy Anaphylaxis Verified 06/30/18 10:28 (Beta-Adrenergic Bloc MRI PRECAUTION AdvReac Severe NON REVO Uncoded 08/04/17 18:49 PACEMAKER Physical Exam Vital signs: Vital Signs 08/06/18 20:00 08/07/18 00:00 08/07/18 04:00 Temperature 97.8 F 98.2 F 97.4 F L Pulse Rate 59 L 80 60 Respiratory Rate 17 17 17 Blood Pressure 152/93 H 147/91 H 139/86 Pulse Oximetry 97 97 100 08/07/18 08:00 08/07/18 12:00 08/07/18 12:24 Temperature 98.1 F 97.8 F Pulse Rate 74 75 Respiratory Rate 18 18 9 L Blood Pressure 157/83 H 153/100 H Pulse Oximetry 100 100 08/07/18 16:00 Temperature 98.1 F Pulse Rate 66 Respiratory Rate 18 Blood Pressure 137/74 Pulse Oximetry 97 Intake & Output 08/07/18 08/07/18 08/08/18 06:59 18:59 06:59 Intake Total 720 / 720 Balance 720 / 720 Weight 67.8 kg Intake: Oral 720 / 720 Other: Date of Last Bowel Movement 08/06/18 08/06/18 # Bowel Movements 0 - Routine Neurological Exam alert, speech normal CN--left ptosis. ANisicoria with right pupil 4mm. left pupil 3mm--both react to light. EOM intact MOTOR 4/5 BUE proximal and distal. 4/5 proximal BLE, 3/5 distal BLE. Atrophy BUE and BLE. No fasciculations Sensory--decrease in both LE in stocking fashion DTR--trace BUE. 2+ patellar. absent ankle reflexes bilaterally. No babinski Objective Laboratory Results - last 24 hr 08/06/18 08/07/18 08/07/18 22:12 06:07 10:32 WBC RBC Hgb Hct MCV MCH MCHC RDW Plt Count MPV Neut % (Auto) Lymph % (Auto) [place] % (Auto) Eos % (Auto) Baso % (Auto) Neut # (Auto) Lymph # (Auto) [place] # (Auto) Eos # (Auto) Baso # (Auto) WBC Differential Differential Comment Sodium 141 Potassium 3.1 L Chloride 102 Carbon Dioxide 32.1 H Anion Gap 7 BUN 6 L Creatinine 0.63 Estimated GFR Greater than 89 POC Glucose 98 88 Random Glucose 76 Calcium 8.7 08/07/18 08/07/18 08/07/18 12:22 16:13 17:10 WBC 2.0 L RBC 3.04 L Hgb 9.4 L Hct 28.2 L MCV 93.0 MCH 30.9 MCHC 33.3 RDW 16.9 Plt Count 157 D MPV 8.6 Neut % (Auto) 69.3 Lymph % (Auto) 25.5 [place] % (Auto) 4.6 Eos % (Auto) 0.3 Baso % (Auto) 0.3 Neut # (Auto) 1.4 L Lymph # (Auto) 0.5 L [place] # (Auto) 0.1 Eos # (Auto) 0.0 Baso # (Auto) 0.0 WBC Differential . 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 Possible variant of Guillain [place] , although DTR are intact. His csf showed mild increase WBC and increase protein and increase IgG index. 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 Prior Brain MRI normal. I am reluctant to order more plasmapheresis since his counts decreased the last treatment. Will try a course of IVIG 0.4 g/kg iv slowly daily for 5 days. ALso ask respiratory to do bedside spirometry due to his feelings of shortness of breath. Increase the lyrica for neurogenic pain I spoke with neurologist at the [facility] today who is kindly looking into the possibility of transfer to [place] for second opinion. Will check additional labs---anti -NMO, Anti GM1, Anti-MAG antibodies
[2018-08-07] MEDS ORDERED: IVIG (Immune Globulin) Inj 25 GM in Syringe/Bag 1 EACH IV.SIG SCH (21:00)
[2018-08-08] MEDS: LORazepam 1 MG Tablet PO PRN ×2 (01:14→06:53)
[2018-08-08] MEDS: Morphine Sulfate 15 MG IR Tablet G-TUBE PRN ×2 (01:14→06:53)
[2018-08-08] MEDS: Morphine Inj 4 MG/ML Vial IM PRN ×2 (04:36→10:00)
[2018-08-08] MEDS: Levothyroxine 75 MCG Tablet PO SCH (06:53)
--- NOTE | 2018-08-08 07:43 | P.DS ---
DS: Providers Date of admission: 06/30/18 11:44 Primary care physician: Faith Eugene MD Consults: 07/26/18 14:24 Consult to Gastroenterology Routine Consulting Provider: Lorraine Valadez Reason for Consultation: feeding tube slashed; dysfunctional now Notified:: Office Spoke with:: DEB Date Notified:: 07/26/18 Time Notified:: 14:26 Ordering Provider: JASBIR 07/28/18 08:45 Consult to Infectious Diseases Routine Consulting Provider: Lisa Dailey Reason for Consultation: recurring neutropenic fever; most recent ID MD not on until 07/30 Notified:: Service Spoke with:: Eva Date Notified:: 07/28/18 Time Notified:: 08:51 Ordering Provider: JASBIR 06/30/18 12:41 Consult to Neurology Routine Consulting Provider: Andrea Jones Reason for Consultation: seizures, pituitary dysfunction Notified:: Service Spoke with:: Justine Date Notified:: 06/30/18 Time Notified:: 12:46 Ordering Provider: CHAD 06/30/18 13:37 HUB Only Consult Order Routine Consulting Provider: [facility],Insurance 06/30/18 14:30 Consult to Nephrology Routine Consulting Provider: Aniya Solis Does the patient have a Automotive Title Clerk who follows them?: No Preferred Nephrology Printed Circuit Board Drafter:: Parts Identifier Physician Reason for Consultation: ARF Notified:: Service Spoke with:: LISA Date Notified:: 06/30/18 Ordering Provider: CHAD 07/02/18 13:26 Consult to Cardiology Routine Consulting Provider: Hamida Robledo Does the patient have a Sample Puller who follows them?: Yes Preferred Shift Leader:: Johnson Danielle Reason for Consultation: Evaluation of pacemaker and clearance for MRI Scan. Notified:: Office Spoke with:: Yuliana Date Notified:: 07/02/18 Time Notified:: 13:45 Comments:: Dr. Danielle said that this patient is no longer known to him and to call the consult into the project economist doctor (Venkat). 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 on vanco/ cefipime now. 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 Reportedly, patient lives in a motel with his mother tried to contact him and he did not answer she called EMS and upon their arrival patient was found confused, mumbling and hypoglycemic with a blood sugar in the 40s. On arrival to the ED, patient was tachycardic, hypertensive and had a systolic blood pressure in the 90s. Urine drug screen was positive for opiates and amphetamines. Laboratory data was significant for acute renal failure with a creatinine of 3.87, lactic acidosis with lactic acid level 4.5. Patient was also noted to have elevated liver enzymes. He had leukocytosis with a white count of 15.1. CT scan of the brain was obtained which not show any acute intracranial abnormality. Chest x-ray showed minimal left basilar airspace disease. Previous to this admission, patient was hospitalized [facility] [place] in October for Boerhaave syndrome and underwent a spit fistula esophagectomy with postop course complicated by respiratory failure requiring intubation, septic shock, acute renal failure, rhabdomyolysis, on hemodialysis for 3 weeks. Approximately 10 days ago, patient had seizure type activity and was discharged from [facility] 1 week ago. Patient update on day of discharge: Patient seen and examined. Patient continues to have complaints of chronic pain. He states that his breathing is more difficult today. He denies any shortness of breath but states it is more difficult for him to initiate a breath. He denies any fever or chills. He denies any cough or sputum production. He denies any chest pain. He denies any nausea, vomiting or abdominal pain. He continues to have weakness in both upper and lower extremities. He has a left eyelid droop. DS: Diagnosis Discharge Diagnosis (1) Polysubstance abuse: Status: Acute (2) Lactic acidemia: Status: Acute (3) Transaminitis: Status: Acute (4) Hypoglycemia: Status: Acute DS: Summary Patient was started empirically on broad-spectrum IV antibiotics and monitored closely for any signs of infection. Blood cultures were obtained. He was placed on hydrocortisone for hypoglycemic episodes. Patient was seen in consultation by nephrology and neurology. His acute renal failure was treated with IV fluids. He was treated for hyperkalemia. EEG was obtained was essentially unremarkable. Cardiology was consulted and assisted with contacting [employer] for pacemaker evaluation and clearance for MRI of the brain as requested by neurology. Patient's pacemaker was found to be MRI compatible. Brain MRI was unremarkable. MRI of the thoracic spine revealed a stable 4 mm nodule in the superior segment of the right lower lobe without any recommended follow-up, nodule stable for 18 months. Cervical spine MRI was essentially unremarkable. Patient underwent lumbar puncture significant for elevated protein. Patient was treated for rhabdomyolysis with CPK of 33,000. Blood cultures failed to show any growth. He underwent a liver ultrasound which revealed hepatosplenomegaly. Patient was hep C positive. 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 Patient had Vas-Cath placed. Following initiation of plasmapheresis, patient developed significant pancytopenia and neutropenic fever. Plasma exchange was placed on hold. His Vas-Cath was removed and was subsequently replaced. He was treated with Neupogen. Patient had positive blood cultures growing MRSA in 4 out of 4 bottles and enterococcus bacillus and 2 out of 4 bottles. Infectious disease was consulted and patient was continued on IV vancomycin and cefepime with addition of micafungin. Echocardiogram was ordered and did not show any vegetation. Patient had malfunctioning PEG tube and was seen by gastroenterology who consulted IR for replacement. Case was discussed with patient's outside websphere portal developer Dr. Ornelas who recommended continuation of oral hydrocortisone 20 mg 3 times daily until patient had follow-up appointment as outpatient in his office. Patient improved clinically. Neurology signed off. Repeat blood cultures were negative. There were issues with IV access and patient was temporally placed on oral Zyvox until IV access could be maintained and he could be resumed on vancomycin per ID. Patient then began to worsen with increasing weakness and he developed a left Marla syndrome. Neurology reevaluated patient and started him on IVIG. Neurologist Dr. Jones contacted neurologist at [place] and patient was accepted for transfer to their facility for additional workup to include EMG and possible nerve biopsy. Time Spent with Patient Total time spent providing and/or coordinating discharge services: Greater than 30 minutes Quality: VTE Deep Vein Thrombosis/Pulmonary Embolism Present on Admission: No Exam Narrative Exam Narrative: GENERAL: Well developed well nourished male, INAD. Awake and alert. SKIN: Warm and dry. Right sided Vas cath. HEENT: Atraumatic. Normocephalic. Left ptosis present. No scleral icterus. No injection or drainage. No nasal bleeding or discharge. Mucous membranes pink and moist. NECK: Trachea midline. Collection bag over left neck s/p spit fistula. CARDIOVASCULAR: Regular rate and rhythm. RESPIRATORY: No accessory muscle use. Clear to auscultation. Breath sounds equal bilaterally. GASTROINTESTINAL: Abdomen soft, non-tender, nondistended. PEG site C/D/I. MUSCULOSKELETAL: Extremities without clubbing, cyanosis, or edema. No obvious deformities. NEUROLOGICAL: Awake and alert. No obvious cranial nerve deficits. Able to move all extremities spontaneously. Bilateral upper and lower extremity weakness noted. Diffuse atrophy.. Normal speech. PSYCHIATRIC: Calm and cooperative. Results Procedures completed during hospitalization: 07/08 lumbar puncture 07/11 Vas-cath placement Labs on day of discharge: Labs from last 24 hours 08/08/18 08/07/18 08/07/18 04:32 17:10 16:13 WBC 2.0 L RBC 3.04 L Hgb 9.4 L Hct 28.2 L MCV 93.0 MCH 30.9 MCHC 33.3 RDW 16.9 Plt Count 157 D MPV 8.6 Neut % (Auto) 69.3 Lymph % (Auto) 25.5 [place] % (Auto) 4.6 Eos % (Auto) 0.3 Baso % (Auto) 0.3 Neut # (Auto) 1.4 L Lymph # (Auto) 0.5 L [place] # (Auto) 0.1 Eos # (Auto) 0.0 Baso # (Auto) 0.0 WBC Differential . Differential Comment Auto diff final Sodium Potassium Chloride Carbon Dioxide Anion Gap BUN Creatinine Estimated GFR POC Glucose 85 92 Random Glucose Calcium 08/07/18 08/07/18 12:22 10:32 WBC RBC Hgb Hct MCV MCH MCHC RDW Plt Count MPV Neut % (Auto) Lymph % (Auto) [place] % (Auto) Eos % (Auto) Baso % (Auto) Neut # (Auto) Lymph # (Auto) [place] # (Auto) Eos # (Auto) Baso # (Auto) WBC Differential Differential Comment Sodium 141 Potassium 3.1 L Chloride 102 Carbon Dioxide 32.1 H Anion Gap 7 BUN 6 L Creatinine 0.63 Estimated GFR Greater than 89 POC Glucose 93 Random Glucose 76 Calcium 8.7 Preliminary micro results at discharge 08/06/18 06:55 Aerobic Blood Culture - Preliminary Blood - Peripheral No growth in 1 day Anaerobic Blood Culture - Preliminary No growth in 1 day 08/06/18 06:50 Aerobic Blood Culture - Preliminary Blood - Peripheral No growth in 1 day Anaerobic Blood Culture - Preliminary No growth in 1 day Impressions ITS Impressions Abdomen Ultrasound 06/30/18 00:00 CONCLUSION: 1. The kidneys demonstrate increased echogenicity concerning for medical renal disease. 2. Hepatosplenomegaly. 3. Right pleural effusion. Cervical Spine CT 07/02/18 00:00 CONCLUSION: 1. No acute bony abnormalities within the cervical spine. No canal stenosis identified. 2. Soft tissue swelling of the left neck with small radiopaque foreign bodies in the subcutaneous tissues and locules of air, possibly related to fistulous tract. Thoracic Spine CT 07/02/18 00:00 CONCLUSION: 1. Mild kyphosis. 2. Mild loss of height of several lower thoracic vertebral bodies, stable. 3. No acute compression fracture. Head CT 07/02/18 14:12 CONCLUSION: 1. Stable negative noncontrast CT. . Head MRI 07/03/18 07:05 CONCLUSION: 1. Unremarkable MRI of the brain. Cervical Spine MRI 07/03/18 07:07 CONCLUSION: 1. Focal mild right lateral bulging at C5-6. 2. Otherwise, unremarkable exam for patient's age. Thoracic Spine MRI 07/03/18 07:07 CONCLUSION: 1. Mild broad-based bulging at T10-T11. 2. Mild disc space narrowing from T3 through T7. 3. Mild chronic loss of height of T9, T10 and T11. No abnormal bone marrow signal. Chest CT 07/04/18 00:00 CONCLUSION: 1. No evidence of Pancoast tumor as questioned. 2. Stable 4 mm nodule in the superior segment of the right lower lobe. Routine follow-up of sub-6 mm nodules is not recommended per 2017 Fleischner material. This nodule has been essentially stable for 18 months. 3. Small right and trace left simple appearing pleural effusions. Soft Tissue Neck CT 07/04/18 00:00 CONCLUSION: 1. I do not see evidence for esophageal rupture. Lumbar Puncture Fluoroscopy 07/08/18 00:00 CONCLUSION: Uncomplicated fluoroscopically guided lumbar puncture. Barium Swallow X-Ray 07/12/18 00:00 CONCLUSION: No evidence of penetration of the supraglottic larynx or tracheal aspiration with multiple swallows of thin barium. Tube Removal 07/22/18 18:36 CONCLUSION: 1. Uncomplicated Permcath removal. Catheter Placement 07/25/18 00:00 CONCLUSION: 1. Uncomplicated right IJ Vas-Cath placement as above. Chest X-Ray 07/28/18 00:00 CONCLUSION: No acute cardiopulmonary disease. Catheter Change 07/29/18 00:00 CONCLUSION: 1. Uncomplicated gastrostomy tube exchange as above. Venous Doppler Study 08/05/18 00:00 CONCLUSION: 1. Occlusive thrombus in the distal right cephalic vein at site of prior intravenous line. 2. Occlusive thrombus in the left mid basilic vein and distal left cephalic vein with nonocclusive thrombus noted in the mid cephalic vein. Discharge Plan Discharge Disposition Patient Disposition: 70 Transfer To Other Facility Discharge Condition Condition: Stable Discharge Order Discharge Orders: Discharge Order (Routine); Ordered 08/08/18 Ordered By: Lisa Evans Discharge Details Anticipated Discharge Date: 08/08/18 Physicians Team Primary Care Provider: Faith Eugene Attending Provider: Luis Felipe Renee Other Providers: Aniya Solis ; Andrea Jones ; [facility],Insurance ; Hamida Robledo ; Driss Ibrahim ; [facility],[place] ; [facility],Agency ; Yolanda Lopez ; Lorraine Valadez ; Lisa Dailey Rxs /Orders / Referrals /Forms Prescriptions: New lorazepam 1 mg Tablet 1 mg PO Q6H PRN (Reason: Anxiety) Qty: 10 RF: 0 fentanyl [Duragesic] 25 mcg/hr Patch 72 Hour 1 patch Transdermal Q72H 30 Days Qty: 1 RF: 0 pregabalin [Lyrica] 25 mg Capsule 50 mg PO TID Qty: 30 RF: 0 tizanidine [Zanaflex] 4 mg Tablet 4 mg PO Q6H PRN (Reason: Muscle Spasm) Qty: 30 RF: 0 amlodipine [Norvasc] 5 mg Tablet 5 mg G-Tube DAILY Qty: 30 RF: 0 immun glob G(IgG)-pro-IgA 0-50 [Privigen] 10 % Solution See Label Instructions .ROUTE .COMPLEX Qty: 400 RF: 0 hydrocortisone [Cortef] 10 mg Tablet 20 mg PO TID Qty: 30 RF: 0 linezolid [Zyvox] 600 mg Tablet 600 mg PO BID Qty: 60 RF: 0 Continue levothyroxine [Synthroid] 75 mcg Tablet 75 mcg PO DAILY RF: 0 gabapentin 300 mg Capsule 300 mg PO TID RF: 0 levetiracetam [Keppra] 750 mg Tablet 750 mg PO BID RF: 0 albuterol sulfate [Proventil HFA] 90 mcg/actuation Hfa Aerosol Inhaler Inhalation Q3-4H PRN (Reason: Shortness Of Breath) RF: 0 morphine 15 mg Tablet 15 mg PO Q4-6H PRN (Reason: Pain) RF: 0 quetiapine [Seroquel] 400 mg Tablet 400 mg PO BID RF: 0 Discontinued lorazepam [Ativan] 1 mg Tablet 1 mg PO BID RF: 0 fentanyl 12 mcg/hr Patch 72 Hour 1 patch TRANSDERMAL Q72H RF: 0 Referrals: Faith Eugene MD [Primary Care Provider] - See Instructions Discharge Instructions Additional Instructions: Your Health Problems: Goals to Promote Your Health: * To prevent worsening of your condition * To maintain your health at the optimal level Directions to Meet Your Goals: * Take your medications as prescribed * Follow your dietary instruction * Follow activity as directed * Keep your appointments as scheduled * Take your immunizations and boosters as scheduled * If your symptoms worsen call your PCP * If no PCP go to Urgent Care or Emergency Room Smoking is dangerous to your health. Avoid second hand smoke. You may reach the 24-hour crisis hotline for domestic abuse at . Status ED Status: Left Department Discharge Information Discharge Date/Time: 08/08/18 10:40
[2018-08-08 08:09] LABS: Anion Gap 4 meq/L (5-15); Blood Urea Nitrogen 7 mg/dL (7-18); Calcium 8.9 mg/dL (8.5-10.1); Chloride 106 meq/L (98-107); Glomerular Filtration Rate Greater Than 89 mL/min (>89); Glucose,Random 74 mg/dL (74-106); Potassium 3.4 meq/L (3.5-5.1); Sodium 141 meq/L (136-145)
[2018-08-08 08:37] VITALS: BP 147/80; TEMP 98.1; O2SAT 100
[2018-08-08 08:38] VITALS: PULSE 60
--- NOTE | 2018-08-08 08:39 | P.PNNEU ---
Subjective Subjective Comments: Krish received first dose of ivig last PM and tolerated treatment well with no side effects. His neurologic sx are the same--He still c/o weakness in BUE and BLE and distal numbness and diffuse pain. He denies vision sx or double vision. Still with left eyelid droop Active Medications: Active Medications Acetaminophen (Tylenol Liq) 650 mg PO Q6H PRN PRN Reason: temp > 100.4 Last Admin: 08/02/18 08:23 Dose: 650 mg Al Hydroxide/Mg Hydroxide (Milk Of Magnesia Liq) 30 ml PO Q12H PRN PRN Reason: Mild Constipation Last Admin: 07/07/18 15:45 Dose: 30 ml Albuterol (Duoneb Neb (Prn)) 1 ampul NEB Q2HR NEB PRN PRN Reason: WHEEZING Last Admin: 07/13/18 04:13 Dose: 1 ampul Amlodipine Besylate (Norvasc) 5 mg G-TUBE DAILY [facility] Last Admin: 08/07/18 15:00 Dose: 5 mg Bisacodyl (Dulcolax Supp) 10 mg RECTAL DAILY PRN PRN Reason: SEVERE CONSITIPATION Clonidine HCl (Catapres) 0.1 mg G-TUBE Q6H PRN PRN Reason: SBP>180, DBP>95 Fentanyl (Duragesic 25 Mcg Patch.72hr) 1 patch T-DERMAL Q72H [facility] Last Admin: 08/05/18 12:14 Dose: 1 patch Gabapentin (Neurontin) 900 mg PO TID [facility] Last Admin: 08/07/18 17:00 Dose: 900 mg Heparin Sodium (Porcine) (Heparin Central Flush) 0 unit IV.FLUSH DAILY PRN PRN Reason: SEE DOSE INSTRUCTIONS Last Admin: 07/29/18 11:50 Dose: 1,000 unit Heparin Sodium (Porcine) (Heparin Inj) 1,000 units IV.FLUSH UNSCH PRN PRN Reason: FLUSH AFTER USING IV ACCESS Hydrocortisone Acetate (Cortef) 20 mg PO TID [facility] Last Admin: 08/07/18 17:00 Dose: 20 mg Vancomycin HCl 1,250 mg/ (Sodium Chloride) 262.5 mls @ 250 mls/hr IV.SIG Q12H [facility] Last Admin: 08/05/18 17:49 Dose: Not Given Immune Globulin 25 gm/ (Miscellaneous Medication) 250 mls @ 31.25 mls/hr IV.SIG Q24HR [facility] Stop: 08/12/18 04:59 Last Admin: 08/07/18 23:44 Dose: 31.25 mls/hr Lactulose (Lactulose Liq) 30 ml PO DAILY PRN PRN Reason: SEVERE CONSITIPATION Last Admin: 07/19/18 09:15 Dose: 30 ml Levetiracetam (Keppra) 750 mg PO BID [facility] Last Admin: 08/07/18 21:56 Dose: 750 mg Levothyroxine Sodium (Synthroid) 75 mcg PO DAILY@0600 [facility] Last Admin: 08/08/18 06:53 Dose: 75 mcg Linezolid (Zyvox) 600 mg PO BID [facility] Last Admin: 08/07/18 21:56 Dose: 600 mg Lorazepam (Ativan) 1 mg PO Q6H PRN PRN Reason: ANXIETY Last Admin: 08/08/18 06:53 Dose: 1 mg Melatonin (Melatonin) 5 mg PO HS PRN PRN Reason: INSOMNIA Last Admin: 08/07/18 22:16 Dose: 5 mg Morphine Sulfate (Morphine Inj) 2 mg IM Q4H PRN PRN Reason: BREAKTHROUGH PAIN Last Admin: 08/08/18 04:36 Dose: 2 mg Morphine Sulfate (Msir) 15 mg G-TUBE Q4H PRN PRN Reason: Pain 1 to 10 Naloxone HCl (Narcan Inj) 0.4 mg IV.PUSH Q2M PRN PRN Reason: SEDATION Pantoprazole Sodium (Protonix) 40 mg PO DAILY [facility] Last Admin: 08/07/18 10:07 Dose: 40 mg Patch Removal (Remove Old Patch) 1 each T-DERMAL Q72H [facility] Last Admin: 08/05/18 12:11 Dose: 1 each Patch Removal (Remove Old Patch) 1 each T-DERMAL Q72H [facility] Last Admin: 08/05/18 12:11 Dose: 1 each Pharmacy Profile Note (Vancomycin Consult Pharmacy) 1 each OTHER UNSCH PRN PRN Reason: Pharmacy to dose Pregabalin (Lyrica) 50 mg PO TID [facility] Quetiapine Fumarate (Seroquel) 400 mg PO BID [facility] Last Admin: 07/03/18 21:19 Dose: Not Given Sennosides (Senokot) 17.2 mg PO Q12H PRN PRN Reason: Moderate Constipation Sodium Chloride (Ns Flush) 2 ml IV.FLUSH PRN PRN PRN Reason: FLUSH AFTER USING IV ACCESS Last Admin: 08/05/18 01:22 Dose: 2 ml Sodium Chloride (Ns Flush) 0 ml IV.FLUSH PRN PRN PRN Reason: SEE DOSE INSTRUCTIONS Sodium Chloride (Ns Flush) 10 ml IV.FLUSH UNSCH PRN PRN Reason: FLUSH AFTER USING IV ACCESS Tizanidine HCl (Zanaflex) 4 mg PO Q6H PRN PRN Reason: MUSCLE SPASM Last Admin: 08/08/18 04:37 Dose: 4 mg Allergies/Adverse Reactions: Allergies Allergy/AdvReac Type Severity Reaction Status Date / Time codeine Allergy Severe Hives Verified 07/20/18 21:01 tramadol Allergy Severe seizure Verified 07/20/18 21:01 cyclobenzaprine Allergy Unknown Unresponsiv Verified 06/30/18 10:28 e fluvoxamine Allergy Unknown Unresponsiv Verified 06/30/18 10:28 e zolpidem Allergy Unknown Unconscious Verified 06/30/18 10:28 Beta-Blockers Allergy Anaphylaxis Verified 06/30/18 10:28 (Beta-Adrenergic Bloc MRI PRECAUTION AdvReac Severe NON REVO Uncoded 08/04/17 18:49 PACEMAKER Physical Exam Vital signs: Vital Signs 08/07/18 12:00 08/07/18 12:24 08/07/18 16:00 Temperature 97.8 F 98.1 F Pulse Rate 75 66 Respiratory Rate 18 9 L 18 Blood Pressure 153/100 H 137/74 Pulse Oximetry 100 97 08/07/18 20:00 08/07/18 23:44 08/08/18 00:00 Temperature 98.1 F 98.1 F Pulse Rate 80 73 59 L Respiratory Rate 18 18 18 Blood Pressure 147/86 H 147/86 H 145/77 H Pulse Oximetry 96 100 08/08/18 04:00 Temperature 98.5 F Pulse Rate 59 L Respiratory Rate 18 Blood Pressure 136/74 Pulse Oximetry 98 Intake & Output 08/07/18 08/08/18 08/08/18 18:59 06:59 18:59 Output Total 800 / 800 Balance -800 / -800 Weight 67.3 kg Output: Urine 800 / 800 Other: Date of Last Bowel Movement 08/06/18 08/06/18 - Routine Neurological Exam alert, oriented, speech normal CN--left ptosis is still present but not as severe as last night. Pupils are equal this am. Other cn 2-12 normal MOTOR 4/5 BUE proximal and distal. 4/5 bilateral iliopsoas, quads and hamstring. 3/5 right tib anterior and EHL and EDB. 4/ 5 left tib anterior and EHL and EDB. 4/5 Gastrocnemius /soleus. He has diffuse atrophy. I dont see fasciculations SENS---diminished soft touch distal BUE and BLE DTR 1+ BUE. 2+ patellar bilateral absent ankle dtr. No Babinski is present. Objective Laboratory Results - last 24 hr 08/07/18 08/07/18 08/07/18 10:32 12:22 16:13 WBC RBC Hgb Hct MCV MCH MCHC RDW Plt Count MPV Neut % (Auto) Lymph % (Auto) Barnes % (Auto) Eos % (Auto) Baso % (Auto) Neut # (Auto) Lymph # (Auto) Barnes # (Auto) Eos # (Auto) Baso # (Auto) WBC Differential Differential Comment Sodium 141 Potassium 3.1 L Chloride 102 Carbon Dioxide 32.1 H Anion Gap 7 BUN 6 L Creatinine 0.63 Estimated GFR Greater than 89 POC Glucose 93 92 Random Glucose 76 Calcium 8.7 08/07/18 08/08/18 08/08/18 17:10 04:32 07:42 WBC 2.0 L RBC 3.04 L Hgb 9.4 L Hct 28.2 L MCV 93.0 MCH 30.9 MCHC 33.3 RDW 16.9 Plt Count 157 D MPV 8.6 Neut % (Auto) 69.3 Lymph % (Auto) 25.5 Barnes % (Auto) 4.6 Eos % (Auto) 0.3 Baso % (Auto) 0.3 Neut # (Auto) 1.4 L Lymph # (Auto) 0.5 L Barnes # (Auto) 0.1 Eos # (Auto) 0.0 Baso # (Auto) 0.0 WBC Differential . Differential Comment Auto diff final Sodium 141 Potassium 3.4 L Chloride 106 Carbon Dioxide 31.0 Anion Gap 4 L BUN 7 Creatinine 0.56 L Estimated GFR Greater than 89 POC Glucose 85 Random Glucose 74 Calcium 8.9 Microbiology 08/06/18 06:55 Aerobic Blood Culture - Preliminary Blood - Peripheral No growth in 1 day Anaerobic Blood Culture - Preliminary No growth in 1 day 08/06/18 06:50 Aerobic Blood Culture - Preliminary Blood - Peripheral No growth in 1 day Anaerobic Blood Culture - Preliminary No growth in 1 day Review/Management - Diagnosis (1) Myelopathy Code(s): G95.9 - Disease of spinal cord, unspecified Status: Acute Current Visit: Yes - Review/Management Plan: 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 Multiple Sclerosis is a consideration--He has had neurologic sx coming and going in the past with LE spasticity and weakness, which have in the past spontaneously resolved. However MRI brain has been normal with no plaques and CSF has no oligoclonal banding and myelin basic protein was normal, although IgG index elevated. The csf findings and definite response to plasma pheresis are suggestive of an autoimmune process. The [facility] as very kindly agreed to accept Mr Daniel in transfer today for a second opinion in this complicated case. I indicated that we would be happy to accept him back after completion of their evaluation and recommendations.
[2018-08-08 08:40] LABS: Baso % (Auto) 0.5 % (0.0-2.0); Eos % (Auto) 0.5 % (0.0-4.0); Hematocrit 28.9 % (39.0-51.0); Hemoglobin 9.9 gm/dL (13.0-17.0); Lymph # (Auto) 0.9 th/mm3 (1.0-4.8); Lymph % (Auto) 31.2 % (9.0-44.0); Mean Corpuscular HGB Conc 34.2 % (32.0-36.0); Mean Corpuscular Hemoglobin 31.8 pg (27.0-34.0); Mean Corpuscular Volume 93.2 fL (80.0-100.0); Mean Platelet Volume 8.7 fL (7.0-11.0); Mono # (Auto) 0.2 th/mm3 (0.0-0.9); Mono % (Auto) 7.7 % (0.0-8.0); Neut # (Auto) 1.7 th/mm3 (1.8-7.7); Neut % (Auto) 60.1 % (16.0-70.0); Platelet Count 189 th/mm3 (150-450); Red Cell Distribution Width 16.7 % (11.6-17.2); White Blood Count 2.8 th/mm3 (4.0-11.0)
[2018-08-08] MEDS: Gabapentin 300 MG Capsule PO SCH (08:48)
[2018-08-08] MEDS: Hydrocortisone 10 MG Tablet PO SCH (08:49)
[2018-08-08] MEDS: levETIRAcetam 250 MG Tablet PO SCH (08:49)
[2018-08-08] MEDS: amLODIPine 5 MG Tablet G-TUBE SCH (08:49)
[2018-08-08] MEDS: Linezolid 600 MG Tablet PO SCH (08:49)
[2018-08-08] MEDS ORDERED: Pregabalin 25 MG Capsule PO SCH (09:00)
[2018-08-08] MEDS ORDERED: ceFAZolin 2 GM Premix Inj 2 GM/50 ML PIGGYBACK IV.SIG SCH (10:00)
[2018-08-08] MEDS ORDERED: Morphine Sulfate 15 MG IR Tablet G-TUBE PRN (10:00)
== END 2018-08-08 10:40 | disposition short-term general hospital (02) | DRG 94 ==
LOC: NEPE 09:48 → NEDA 11:44 → HIMC 14:10 → N04 07-04 15:14
PROVIDERS: ADMIT Hospitalist; ATTEND Hospitalist
DX: B95.2 Enterococcus as the cause of diseases classified elsewhere; H57.04 Mydriasis; G40.909 Epilepsy, unspecified, not intractable, without status epilepticus; E16.2 Hypoglycemia, unspecified; E87.5 Hyperkalemia; R50.81 Fever presenting with conditions classified elsewhere; G90.2 Horner's syndrome; F90.9 Attention-deficit hyperactivity disorder, unspecified type; Z88.5 Allergy status to narcotic agent; F11.20 Opioid dependence, uncomplicated; R13.10 Dysphagia, unspecified; E87.1 Hypo-osmolality and hyponatremia; I95.9 Hypotension, unspecified; J18.9 Pneumonia, unspecified organism; G61.0 Guillain-Barre syndrome; B19.20 Unspecified viral hepatitis C without hepatic coma; I10 Essential (primary) hypertension; E87.6 Hypokalemia; M54.9 Dorsalgia, unspecified; F42.9 Obsessive-compulsive disorder, unspecified; A41.02 Sepsis due to Methicillin resistant Staphylococcus aureus; F43.10 Post-traumatic stress disorder, unspecified; Z79.890 Hormone replacement therapy; R00.0 Tachycardia, unspecified; D68.9 Coagulation defect, unspecified; G89.29 Other chronic pain; Z86.73 Personal history of transient ischemic attack (TIA), and cerebral infarction without residual deficits; E87.0 Hyperosmolality and hypernatremia; F31.30 Bipolar disorder, current episode depressed, mild or moderate severity, unspecified; G93.40 Encephalopathy, unspecified; E27.1 Primary adrenocortical insufficiency; K94.23 Gastrostomy malfunction; E87.2 Acidosis; Z95.0 Presence of cardiac pacemaker; M62.82 Rhabdomyolysis; D70.9 Neutropenia, unspecified; F17.210 Nicotine dependence, cigarettes, uncomplicated; D69.59 Other secondary thrombocytopenia; R00.1 Bradycardia, unspecified; Z79.899 Other long term (current) drug therapy; G95.9 Disease of spinal cord, unspecified; N17.9 Acute kidney failure, unspecified; Z86.14 Personal history of Methicillin resistant Staphylococcus aureus infection
CPT/HCPCS: 36430; 36514; 36556; 36600; 49452; 62270; 70450; 70491; 70551; 71010; 71020; 71045; 71046; 71260; 72125; 72128; 72141; 72146; 74230; 75998; 76700; 76937; 77001; 77003; 80048; 80053; 80074; 80202; 80307; 81001; 82040; 82042; 82272; 82550; 82552; 82565; 82607; 82728; 82746; 82784; 82805; 82945; 82948; 82962; 83010; 83519; 83520; 83540; 83550; 83605; 83615; 83690; 83735; 83873; 83916; 84100; 84132; 84145; 84155; 84157; 84238; 84439; 84443; 84484; 85025; 85027; 85044; 85384; 85610; 85651; 85652; 85730; 86038; 86255; 86256; 86403; 86406; 86430; 86431; 86592; 86664; 86665; 86738; 86900; 86901; 86965; 87040; 87070; 87077; 87147; 87149; 87186; 87205; 87327; 87389; 87449; 87476; 87641; 87801; 89051; 90761; 90765; 90775; 92610; 93005; 93308; 93970; 94010; 94640; 94665; 95819; 96361; 96365; 96375; 97110; 97116; 97161; 97167; 97168; 97530; 97535; 99145; 99152; 99153; 99291; A4646; C1014; C1752; C9113; C9238; G0195; J0610; J0692; J0696; J1170; J1200; J1440; J1442; J1459; J1642; J1644; J1720; J1885; J1953; J2060; J2248; J2250; J2270; J2310; J2543; J2930; J3010; J3370; J3475; J3480; J7030; J7040; J7042; J7050; J7070; L1960; P9035; P9045; Q9950; Q9965; Q9967